=== PATIENT | male | born 1970 | race Caucasian/White ===

== ENCOUNTER 2021-04-16 11:23 | Inpatient (IN) ==
--- NOTE | 2021-04-16 11:43 | Emergency Department Note ---
History of Present Illness General Chief complaint: Shortness of Breath/Dyspnea Time Seen by Provider: 04/16/21 11:32 History of Present Illness 51-year-old male presents emergency department has been COVID-positive for the past 10 days he states he has had increased shortness of breath this morning. Patient is unvaccinated, called EMS reportedly his pulse oximetry on room air was in the mid 80s. Patient was placed on a nonrebreather at 15 L/min he states he is much improved. Patient denies any other complaints. There are no other mitigating or alleviating factors. Home Medications Medication Instructions Recorded Confirmed Type metformin 1,000 mg tablet 1,000 mg PO BIDWMEAL #0 tab 05/04/12 04/16/21 History acetaminophen 650 mg tablet 650 mg PO Q4H PRN #0 tab 10/22/12 04/16/21 History albuterol sulfate 90 mcg/actuation 2 puff INHALATION Q4H PRN 04/16/21 04/16/21 History aerosol inhaler dulaglutide 3 mg/0.5 mL 3 mg SUBCUT WK 04/16/21 04/16/21 History subcutaneous pen injector (Trulicity) hydrochlorothiazide 25 mg tablet 25 mg PO DAILY 04/16/21 04/16/21 History omeprazole 20 mg capsule,delayed 20 mg PO DAILY 04/16/21 04/16/21 History release prednisone 10 mg tablet 10 mg PO UD 04/16/21 04/16/21 History testosterone cypionate 200 mg/mL 200 mg IM UD 04/16/21 04/16/21 History intramuscular oil Allergies Allergy/AdvReac Type Severity Reaction Status Date / Time methylparaben Allergy Mild ITCHING Unverified 04/16/21 14:03 oxymorphone Allergy Mild ITCHING Unverified 04/16/21 14:03 Past Med/Surg History Medical History DM type 2 (diabetes mellitus, type 2) HTN (hypertension) Obesity FARNAZ on CPAP Surgical History H/O laminectomy x 2 History of appendectomy Family History Father Diabetes Hypertension Social History Smoking Status: Never smoker Hx Alcohol Use: Yes Alcohol Intake Frequency: Monthly or Less Feels Safe at Home: Yes Immunizations: Patient is not immunized for COVID, patient is a non-smoker, patient is a type II diabetic Review of Systems A total of 10 systems reviewed and were otherwise negative Constitutional: no fever Respiratory: + cough and + dyspnea Cardiovascular: + dyspnea and + dyspnea on exertion Endocrine: no fatigue Physical Exam Vital Signs Vital Signs - 24 hr 04/16/21 11:33 04/16/21 11:41 04/16/21 11:55 Temperature 38.3 C H 38.3 C H Temperature Source Oral Oral Pulse Rate 105 H 107 H Pulse Rate [Apical] 115 H Pulse Rate from SpO2 Sensor 104 H 107 H Pulse Rhythm Regular Pulse Rhythm [Apical] Regular Pulse Strength Normal Pulse Strength [Apical] Normal Respiratory Rate 32 H 22 22 Respiratory Effort / Characteristics Short of Breath SOB on Exertion Short of Breath SOB on Exertion Respiratory Depth Shallow Shallow Respiratory Pattern Regular Regular Blood Pressure 164/99 H Blood Pressure [Right Arm] 164/99 H Blood Pressure Mean 120 Blood Pressure Mean [Right Arm] 120 Blood Pressure Position [Right Arm] Lying Pulse Oximetry 92 94 95 Oxygen Delivery Method Oxymask Oxymask Oxygen Flow Rate 15 15 Sepsis Recent Fever Within 48 Hours Yes Sepsis New/Unexplained Change in Mental Status No Sepsis Action Taken by Nursing Physician Notified Oxygen Flow Rate - Titration Pulse Oximetry Post Tiitration 04/16/21 12:00 04/16/21 12:30 04/16/21 13:00 Temperature Temperature Source Pulse Rate 98 H 98 H 88 Pulse Rate [Apical] Pulse Rate from SpO2 Sensor 98 H 96 H 88 Pulse Rhythm Pulse Rhythm [Apical] Pulse Strength Pulse Strength [Apical] Respiratory Rate 35 H 34 H 25 H Respiratory Effort / Characteristics Respiratory Depth Respiratory Pattern Blood Pressure 174/111 H 162/106 H 147/104 H Blood Pressure [Right Arm] Blood Pressure Mean 132 124 118 Blood Pressure Mean [Right Arm] Blood Pressure Position [Right Arm] Pulse Oximetry 93 97 99 Oxygen Delivery Method Oxygen Flow Rate Sepsis Recent Fever Within 48 Hours Sepsis New/Unexplained Change in Mental Status Sepsis Action Taken by Nursing Oxygen Flow Rate - Titration Pulse Oximetry Post Tiitration 04/16/21 13:11 04/16/21 13:30 04/16/21 14:00 Temperature 37.1 C Temperature Source Oral Pulse Rate 87 83 Pulse Rate [Apical] 82 Pulse Rate from SpO2 Sensor 88 83 Pulse Rhythm Pulse Rhythm [Apical] Regular Pulse Strength Pulse Strength [Apical] Normal Respiratory Rate 24 32 H 28 H Respiratory Effort / Characteristics Short of Breath SOB on Exertion Respiratory Depth Normal Respiratory Pattern Regular Blood Pressure 163/99 H 171/108 H Blood Pressure [Right Arm] 171/98 H Blood Pressure Mean 120 129 Blood Pressure Mean [Right Arm] 122 Blood Pressure Position [Right Arm] Lying Pulse Oximetry 98 99 97 Oxygen Delivery Method Oxymask Oxymask Oxygen Flow Rate 15 15 Sepsis Recent Fever Within 48 Hours Sepsis New/Unexplained Change in Mental Status Sepsis Action Taken by Nursing Oxygen Flow Rate - Titration 13 Pulse Oximetry Post Tiitration 98 VITAL SIGNS - Vital signs and nursing notes were reviewed. GENERAL -51-year-old male appearing his stated age who is in no acute distress. Communicates well with provider and answers questions appropriately. SKIN - Without rashes. HEAD - NC/AT. EYES - PERRL with EOMI bilaterally. Sclera anicteric. Palpebral conjunctiva pink and moist with no injection noted. EARS - No deformities of external structures noted on gross examination bilaterally. NOSE - Midline and without cyanosis. No epistaxis or purulent drainage noted. Septum midline without deviation or septal hematoma noted. MOUTH/OROPHARYNX - Without perioral cyanosis. Buccal mucosa pink and moist NECK - Neck with FROM. Supple to palpation. No lymphadenopathy noted. No nuchal rigidity. LUNGS - Chest wall symmetric without accessory muscle use, intercostals retractions, or central cyanosis. Normal vesicular breath sounds CTA B/L. No wheezes, rales, or rhonchi appreciated. CARDIAC - RRR with S1/S2. No murmur, rubs, or gallops appreciated. ABDOMEN - Abdominal contour soft without pulsations or visible masses. BS normoactive all four quadrants. No tenderness, palpable masses, hepatosplenomegaly, or ascites noted. EXTREMITIES - No clubbing or peripheral cyanosis. No pretibial edema present. +5/5 strength noted in UE/LE bilaterally. NEUROLOGIC - Cranial nerves II through XII grossly intact. Sensory intact to light touch throughout. PSYCH - A&Ox3 and cooperates fully with examiner. Pt is very pleasant and interacts well with examiner. Course Reevaluation(s) Reevaluation #1: Patient was resting in no distress he is on nonrebreather but speaking in full sentences. Patient was started on IV Decadron, Tylenol. The case was discussed with the [facility] hospitalist for admission at 1335 Administered Medications Discontinued Medications Acetaminophen (Acetaminophen 500 Mg Tab) 1,000 mg PO NOW STA Stop: 04/16/21 12:03 Last Admin: 04/16/21 12:08 Dose: 1,000 mg Documented by: [id number] Dexamethasone Sodium Phosphate (DexamethasonePf 10 Mg/Ml Vial) 10 mg IV NOW ONE Stop: 04/16/21 11:46 Last Admin: 04/16/21 12:08 Dose: 10 mg Documented by: [id number] Furosemide (Furosemide 40 Mg/4 Ml Vial) 40 mg IV ONE ONE Stop: 04/16/21 14:16 Last Admin: 04/16/21 14: Dose: 40 mg Documented by: [id number] Medical Decision Making Laboratory Data Result diagrams: 04/16/21 11:42 04/16/21 11:42 Lab Results 04/16/21 04/16/21 04/16/21 Range/Units 11:42 11:42 11:42 WBC 12.48 H (4.8-10.8) K/uL RBC 4.83 (4.7-6.1) M/uL Hgb 14.7 (14.0-18.0) g/dL Hct 44.4 (42-52) % MCV 91.9 (80-100) fL MCH 30.4 (25-34) pg MCHC 33.1 (32-36) g/dL RDW Std Deviation 47.2 H (36.4-46.3) fL RDW Coeff of Raisa 13.8 (11.5-14.5) % Plt Count 200 (130-400) K/uL MPV 10.5 H (7.4-10.4) fL Immature Gran % (Auto) 0.5 % Neut % (Auto) 83.5 % Lymph % (Auto) 9.1 % Harvey % (Auto) 6.7 % Eos % (Auto) 0.0 % Baso % (Auto) 0.2 % Neut # (Auto) 10.42 H (1.4-6.5) K/uL Lymph # (Auto) 1.14 L (1.2-3.4) K/uL Harvey # (Auto) 0.84 H (0.11-0.59) K/uL Eos # (Auto) 0.00 (0-0.5) K/uL Baso # (Auto) 0.02 (0-0.2) K/uL Immature Gran # (Auto) 0.06 H (0.00-0.02) K/uL PT 10.2 (9.0-12.0) Seconds INR 1.0 (0.9-1.1) APTT 26.8 (21.0-31.0) Seconds PTT Ratio 1.0 D-Dimer 380 (0-500) ug/L FEU VBG pH (7.36-7.41) VBG pCO2 (38-50) mmHg VBG pO2 mmHg VBG HCO3 mmol/L VBG O2 Saturation % VBG Base Excess mEq/L Barometric Pressure mm/Hg Sodium 134 L (136-145) mmol/L Potassium 4.1 (3.5-5.1) mmol/L Chloride 100 (98-107) mmol/L Carbon Dioxide 25 (21-32) mmol/L Anion Gap 9 (3-11) BUN 18 (6-23) mg/dl Creatinine 0.86 (0.6-1.4) mg/dl Est Cr Clr Drug Dosing 133.9 ml/min Est GFR ( Amer) 114.7 ml/min Est GFR (Non-Af Amer) 99.0 ml/min BUN/Creatinine Ratio 20.9 H (10-20) Glucose 273 H (70-99) mg/dl Calcium 9.3 (8.5-10.1) mg/dl Total Bilirubin 1.1 H (0.2-1.0) mg/dl AST 12 L (13-39) U/L ALT 14 (7-52) U/L Alkaline Phosphatase 72 (34-104) U/L Troponin I < 0.03 (0-0.04) ng/ml Total Protein 7.1 (6.0-8.3) gm/dl Albumin 3.7 (3.4-5.0) gm/dl Globulin 3.4 (2.5-4.0) gm/dl Albumin/Globulin Ratio 1.1 (0.9-2) Procalcitonin (0-0.5) ng/ml 04/16/21 04/16/21 Range/Units 11:45 12:13 WBC (4.8-10.8) K/uL RBC (4.7-6.1) M/uL Hgb (14.0-18.0) g/dL Hct (42-52) % MCV (80-100) fL MCH (25-34) pg MCHC (32-36) g/dL RDW Std Deviation (36.4-46.3) fL RDW Coeff of Raisa (11.5-14.5) % Plt Count (130-400) K/uL MPV (7.4-10.4) fL Immature Gran % (Auto) % Neut % (Auto) % Lymph % (Auto) % Harvey % (Auto) % Eos % (Auto) % Baso % (Auto) % Neut # (Auto) (1.4-6.5) K/uL Lymph # (Auto) (1.2-3.4) K/uL Harvey # (Auto) (0.11-0.59) K/uL Eos # (Auto) (0-0.5) K/uL Baso # (Auto) (0-0.2) K/uL Immature Gran # (Auto) (0.00-0.02) K/uL PT (9.0-12.0) Seconds INR (0.9-1.1) APTT (21.0-31.0) Seconds PTT Ratio D-Dimer (0-500) ug/L FEU VBG pH 7.44 H (7.36-7.41) VBG pCO2 37 L (38-50) mmHg VBG pO2 55 mmHg VBG HCO3 25 mmol/L VBG O2 Saturation 88.9 % VBG Base Excess 1.0 mEq/L Barometric Pressure 743.6 mm/Hg Sodium (136-145) mmol/L Potassium (3.5-5.1) mmol/L Chloride (98-107) mmol/L Carbon Dioxide (21-32) mmol/L Anion Gap (3-11) BUN (6-23) mg/dl Creatinine (0.6-1.4) mg/dl Est Cr Clr Drug Dosing ml/min Est GFR ( Amer) ml/min Est GFR (Non-Af Amer) ml/min BUN/Creatinine Ratio (10-20) Glucose (70-99) mg/dl Calcium (8.5-10.1) mg/dl Total Bilirubin (0.2-1.0) mg/dl AST (13-39) U/L ALT (7-52) U/L Alkaline Phosphatase (34-104) U/L Troponin I (0-0.04) ng/ml Total Protein (6.0-8.3) gm/dl Albumin (3.4-5.0) gm/dl Globulin (2.5-4.0) gm/dl Albumin/Globulin Ratio (0.9-2) Procalcitonin 0.17 (0-0.5) ng/ml Imaging Data Radiologist's Impression: Chest X-Ray 04/16/21 11:37 XR chest 1V portable CLINICAL HISTORY: Dyspnea. Shortness of breath and illness for 3 days. COMPARISON STUDY: 09/20/2012 TECHNIQUE: 1 view of the chest FINDINGS: Single frontal view of the chest demonstrates the cardiomediastinal silhouette to be within normal limits. Patchy interstitial and alveolar opacities are present bilaterally. The findings are most characteristic of a viral type pneumonitis. Covid 19 pneumonia should be excluded. There is no evidence for pleural effusion. There is no evidence for vascular congestion. There is no acute osseous pathology. IMPRESSION: Patchy interstitial and alveolar opacities bilaterally characteris tic of a viral type pneumonitis and probable Covid 19 pneumonia. ACT 112: Negative or not required by law. Electronically signed by: Valdo Marina M.D. 04/16/2021 12:00 PM ECG Data Attestation: I personally reviewed and interpreted this ECG as follows: Additional Comments: EKG interpreted by me sinus tachycardia rate of [address]-T change no obvious ST segment elevation or depression normal axis normal intervals MDM Narrative Medical decision making differential diagnosis includes COVID-pneumonia, CHF, pneumonia, pulmonary embolism Impression & Plan COVID, Pneumonia due to 2019 novel coronavirus, Hypoxia Discharge Plan Visit Data Chief Complaint: Shortness of Breath/Dyspnea ED Provider: Remy Alvarez Discharge Problem: COVID, Pneumonia due to 2019 novel coronavirus, Hypoxia Patient Disposition: Being Evaluated by Hospitalist Forms Stand Alone Forms: [facility] Prescriptions Prescriptions: No Action metformin 1,000 mg Tablet 1,000 mg PO BIDWMEAL Qty: 0 RF: 0 acetaminophen 650 mg Tablet 650 mg PO Q4H PRN (Reason: Pain) Qty: 0 RF: 0 prednisone 10 mg tablet 10 mg PO UD RF: 0 hydrochlorothiazide 25 mg tablet 25 mg PO DAILY RF: 0 testosterone cypionate 200 mg/mL oil 200 mg IM UD RF: 0 albuterol sulfate 90 mcg/actuation HFA aerosol inhaler 2 puff INHALATION Q4H PRN (Reason: Shortness Of Breath) RF: 0 Trulicity 3 mg/0.5 mL pen injector 3 mg SUBCUT WK RF: 0 omeprazole 20 mg capsule,delayed release(DR/EC) 20 mg PO DAILY RF: 0 Referrals Referrals: Jameson Peoples MD [Outside Practitioners] -
[2021-04-16] MEDS ORDERED: dexAMETHasone**PF** 10 MG/ML VIAL IV ONE (11:45)
[2021-04-16 11:56] LABS: Basophils # (auto) 0.02 K/uL (0-0.2); Basophils % (auto) 0.2 %; Hematocrit (blood only) 44.4 % (42-52); Hemoglobin 14.7 g/dL (14.0-18.0); Immature Granulocytes # (auto) 0.06 K/uL (0.00-0.02); Immature Granulocytes % (auto) 0.5 %; Lymphocytes # (auto) 1.14 K/uL (1.2-3.4); Lymphocytes % (auto) 9.1 %; Mean Corpuscular Hemoglobin 30.4 pg (25-34); Mean Corpuscular Hgb Conc 33.1 g/dL (32-36); Mean Corpuscular Volume 91.9 fL (80-100); Mean Platelet Volume 10.5 fL (7.4-10.4); Monocytes # (auto) 0.84 K/uL (0.11-0.59); Monocytes % (auto) 6.7 %; Neutrophils # (auto) 10.42 K/uL (1.4-6.5); Neutrophils % (auto) 83.5 %; Platelet Count 200 K/uL (130-400); RDW Coefficient of Variation 13.8 % (11.5-14.5); RDW Standard Deviation 47.2 fL (36.4-46.3); Red Blood Count 4.83 M/uL (4.7-6.1); White Blood Count 12.48 K/uL (4.8-10.8)
--- NOTE | 2021-04-16 12:01 | XRay Report ---
XR chest 1V portable CLINICAL HISTORY: Dyspnea. Shortness of breath and illness for 3 days. COMPARISON STUDY: 09/20/2012 TECHNIQUE: 1 view of the chest FINDINGS: Single frontal view of the chest demonstrates the cardiomediastinal silhouette to be within normal li mits. Patchy interstitial and alveolar opacities are present bilaterally. The findings are most elmer cteristic of a viral type pneumonitis. Covid 19 pneumonia should be excluded. There is no evidence fo r pleural effusion. There is no evidence for vascular congestion. There is no acute osseous pathology . IMPRESSION: Patchy interstitial and alveolar opacities bilaterally characteristic of a viral type pne umonitis and probable Covid 19 pneumonia. ACT 112: Negative or not required by law. Electronically signed by: Valdo Marina M.D. 04/16/2021 12:00 PM
[2021-04-16] MEDS ORDERED: ACETAMINOPHEN 500 MG TAB PO STA (12:02)
[2021-04-16 12:14] LABS: D Dimer 380 ug/L FEU (0-500); Partial Thromboplastin Time 26.8 Seconds (21.0-31.0); Prothrombin Time 10.2 Seconds (9.0-12.0)
[2021-04-16 12:17] LABS: Troponin I < 0.03 ng/ml (0-0.04)
[2021-04-16 12:20] LABS: Alanine Aminotransferase 14 U/L (7-52); Albumin Globulin Ratio 1.1 (0.9-2); Albumin Level 3.7 gm/dl (3.4-5.0); Alkaline Phosphatase 72 U/L (34-104); Anion Gap 9 (3-11); Aspartate Aminotransferase 12 U/L (13-39); BUN Creatinine Ratio 20.9 (10-20); Bilirubin,Total 1.1 mg/dl (0.2-1.0); Blood Urea Nitrogen 18 mg/dl (6-23); Calcium 9.3 mg/dl (8.5-10.1); Carbon Dioxide 25 mmol/L (21-32); Chloride 100 mmol/L (98-107); Creatinine Clr Calc Pharmacy 133.9 ml/min; Est GFR (African American) 114.7 ml/min; Globulin 3.4 gm/dl (2.5-4.0); Glucose 273 mg/dl (70-99); Potassium 4.1 mmol/L (3.5-5.1); Sodium 134 mmol/L (136-145); Total Protein 7.1 gm/dl (6.0-8.3)
[2021-04-16 12:29] LABS: Oxygen Saturation VBG 88.9 %; pH VBG 7.44 (7.36-7.41)
--- NOTE | 2021-04-16 12:52 | Electrocardiogram Report ---
Test Reason : Blood Pressure : / mmHG Vent. Rate : 106 BPM Atrial Rate : 106 BPM P-R Int : 158 ms QRS Dur : 086 ms QT Int : 342 ms P-R-T Axes : 018 -07 031 degrees QTc Int : 454 ms Sinus tachycardia Otherwise normal ECG When compared with ECG of 20-SEP-2012 12:45, No significant change Confirmed by Josias Galicia ([id number]) on 04/16/2021 12:51:39 PM Referred By: Confirmed By:Josias Galicia
[2021-04-16] MEDS ORDERED: FUROSEMIDE 40 MG/4 ML VIAL IV ONE (14:15)
[2021-04-16] MEDS ORDERED: amLODIPine BESYLATE 5 MG TAB PO ONE (14:40)
--- NOTE | 2021-04-16 14:48 | History & Physical Report ---
Date of Service April 16, 2021 Assessment & Plan (1) Pneumonia due to 2019 novel coronavirus: (2) Acute respiratory failure with hypoxia: Plan: -Admit to telemetry -Patient presenting from home with reports of worsening shortness of breath and cough since 04/06/21. Patient reports testing positive for COVID-19 via home test on that day. -In the ED, patient was requiring 15 L oxygen mask to maintain saturations -CXR consistent with COVID-19 pneumonia -S/p dexamethasone 10 mg IV in the ED, continue with dexamethasone 6 mg IV daily -Given duration of symptoms, patient does not meet criteria for remdesivir. Does not meet criteria for tocilizumab or baricitinib as patient is not on high flow. -Lasix 40 mg IV x 1 dsoe -Procalcitonin 0.17, CRP pending -D-dimer 380 -Continue supportive care with flutter valve, incentive spirometer, albuterol inhaler, encourage self proning (3) HTN (hypertension): Plan: -BP elevated, will start amlodipine 5 mg daily, as needed IV hydralazine -Hold HCTZ while giving IV Lasix (4) DM type 2 (diabetes mellitus, type 2): Plan: -Hgb A1c 8.2 10/2020 -Hold oral agents and utilize Lantus and NovoLog per protocol hospitalized -Glycemic pharmacy consulted while receiving IV steroids (5) FARNAZ on CPAP: Plan: -CPAP as per home settings (6) Obesity: Plan: -BMI 36.4 (7) DVT prophylaxis: Plan: -SQ Lovenox History of Present Illness Chief Complaint: Shortness of breath Primary Care Provider: Josias Ng MD 51-year-old male with PMH DM type II, HTN, obesity, GERD, and other problems to below who presents to the ED for evaluation of shortness of breath. Patient reports testing positive for COVID-19 via home test on 04/06. His symptoms also started on the day. Reports that his and daughter are also positive. Patient is unvaccinated. Patient was seen by PCP on 04/14 and started on prednisone taper and albuterol inhaler. Patient reports no improvement in his symptoms. He has worsening shortness of breath to the point where he is short of breath at rest. He has had a cough productive of white sputum. Developed a fever yesterday, however is unsure of how high. He has had episodes of diaphoresis. No chest pain or palpitations. Denies lightheadedness, dizziness, diaphoresis, syncopal events. Reports appetite has been fair however denies abdominal pain, nausea, vomiting, diarrhea. No urinary symptoms. In the ED, patient is requiring 15 L oxygen mask to maintain saturations. Labs are mostly unremarkable. CXR is consistent with COVID-19 pneumonia. Patient was given p.o. Tylenol and IV dexamethasone. Allergies Allergy/AdvReac Type Severity Reaction Status Date / Time methylparaben Allergy Mild ITCHING Unverified 04/16/21 14:03 oxymorphone Allergy Mild ITCHING Unverified 04/16/21 14:03 Home Medications Medication Instructions Recorded Confirmed Type metformin 1,000 mg tablet 1,000 mg PO BIDWMEAL #0 tab 05/04/12 04/16/21 History acetaminophen 650 mg tablet 650 mg PO Q4H PRN #0 tab 10/22/12 04/16/21 History albuterol sulfate 90 mcg/actuation 2 puff INHALATION Q4H PRN 04/16/21 04/16/21 History aerosol inhaler dulaglutide 3 mg/0.5 mL 3 mg SUBCUT WK 04/16/21 04/16/21 History subcutaneous pen injector (Trulicity) hydrochlorothiazide 25 mg tablet 25 mg PO DAILY 04/16/21 04/16/21 History omeprazole 20 mg capsule,delayed 20 mg PO DAILY 04/16/21 04/16/21 History release prednisone 10 mg tablet 10 mg PO UD 04/16/21 04/16/21 History testosterone cypionate 200 mg/mL 200 mg IM UD 04/16/21 04/16/21 History intramuscular oil Past Med/Surg History Medical History DM type 2 (diabetes mellitus, type 2) HTN (hypertension) Obesity FARNAZ on CPAP Surgical History H/O laminectomy x 2 History of appendectomy Family History Father Diabetes Hypertension Social History Smoking Status: Never smoker Second Hand Exposure: No; Do You Dip or Chew Tobacco: No; Tobacco Cessation Education Requested by Patient: No Hx Alcohol Use: Yes Alcohol type: beer Alcohol Intake Frequency: Monthly or Less Hx Substance Use: No Preferred Language: [place] Communication Ability: Effective Director Of Midwifery/Staff Midwife Required: No Beliefs That Will Affect Care: None Current Living Situation: Spouse Current Living Situation Comment: single story home with steps to enter Other Information That Helps Us Care for You: No Feels Safe at Home: Yes Safety Concerns: Feels Safe At This Time Assistive Devices: None Review of Systems Review of Systems: ROS per HPI, all other systems reviewed and negative Physical Exam Constitutional: WD/WN, vitals as above Eyes: PERRL, conjunctivae normal, anicteric sclerae ENMT: external ear and nose normal, oropharynx normal Respiratory: + abnormal respiratory effort (Shortness of breath with minimal exertion) and no respiratory distress Auscultation: + diminished lung sounds Cardiovascular: Rate/Rhythm: regular rate and regular rhythm Vessels: normal peripheral pulses Extremities: no edema Gastrointestinal (Abdomen): normal bowel sounds, soft, nontender, no hepatosplenomegaly Musculoskeletal: no cyanosis or clubbing, extremities motor strength 5/5 Skin: no rashes Diaphoretic Neurologic: PERRL, EOMI, accommodation nl, no face palsy, no dysarthria Psychiatric: A+Ox3, euthymic affect Results & Data Results & Data ([facility]) Vital Signs (Past 12 Hours) Vital Signs Temp Pulse Pulse Resp BP BP Pulse Ox 04/16/21 14:00 83 28 H 171/108 H 97 04/16/21 13:30 87 32 H 163/99 H 99 04/16/21 13:11 37.1 C 82 24 171/98 H 98 04/16/21 13:00 88 25 H 147/104 H 99 04/16/21 12:30 98 H 34 H 162/106 H 97 04/16/21 12:00 98 H 35 H 174/111 H 93 04/16/21 11:55 38.3 C H 115 H 22 164/99 H 95 04/16/21 11:41 38.3 C H 107 H 22 164/99 H 94 04/16/21 11:33 105 H 32 H 92 Laboratory Results Short CBC 04/16/21 Range/Units 11:42 WBC 12.48 H (4.8-10.8) K/uL Hgb 14.7 (14.0-18.0) g/dL Hct 44.4 (42-52) % Plt Count 200 (130-400) K/uL BMP 04/16/21 11:42 Sodium 134 L Potassium 4.1 Chloride 100 Carbon Dioxide 25 BUN 18 Creatinine 0.86 Glucose 273 H Calcium 9.3 Cardiac Enzymes 04/16/21 Range/Units 11:42 Troponin I < 0.03 (0-0.04) ng/ml Liver Function 04/16/21 Range/Units 11:42 Total Bilirubin 1.1 H (0.2-1.0) mg/dl AST 12 L (13-39) U/L ALT 14 (7-52) U/L Alkaline Phosphatase 72 (34-104) U/L Albumin 3.7 (3.4-5.0) gm/dl Diagnostic Findings Chest X-Ray 04/16/21 11:37 XR chest 1V portable CLINICAL HISTORY: Dyspnea. Shortness of breath and illness for 3 days. COMPARISON STUDY: 09/20/2012 TECHNIQUE: 1 view of the chest FINDINGS: Single frontal view of the chest demonstrates the cardiomediastinal silhouette to be within normal limits. Patchy interstitial and alveolar opacities are present bilaterally. The findings are most characteristic of a viral type pneumonitis. Covid 19 pneumonia should be excluded. There is no evidence for pleural effusion. There is no evidence for vascular congestion. There is no acute osseous pathology. IMPRESSION: Patchy interstitial and alveolar opacities bilaterally characteristic of a viral type pneumonitis and probable Covid 19 pneumonia. ACT 112: Negative or not required by law. Electronically signed by: Valdo Marina M.D. 04/16/2021 12:00 PM Code Status & VTE Plan Code Status Patient is a full code as per my discussion with him. VTE Prophylaxis Plan VTE Prophylaxis will be ordered: Yes Supervising Physician Co-Signing Physician Notes Attending Addendum: care coordinated with YOLI Jiménez please refer to her notes for full details, I agree with her notes patient seen and examined, records reviewed by myself as well on exam, patient seen resting in bed, on 12 L NC not in distress breathing is about the same no chest pain, leg pain no other symptoms VS noted and reviewed oriented x 3, not in distress, speaks in sentences with no effort nor accessory muscle use normal rate, regular rhythm, no murmurs (+) crackles bilaterally, no wheezing non distended, soft, nontender no bipedal edema, erythema, warmth no neuro deficits WBC 12 Hg 14 Crea 0.86 Procal negative CRP 22.7 CXR:Patchy interstitial and alveolar opacities bilaterally characteristic of a viral type pneumonitis and probable Covid 19 pneumonia. ASSESSMENT AND PLAN ACUTE HYPOXIC RESPIRATORY FAILURE SECONDARY TO COVID-PNEUMONIA Dexamethasone IV, out of the window for remdesivir therapy Lasix 20 mg IV Positive spirometry, flutter valve Monitor closely Lovenox for DVT prophylaxis DIABETES TYPE 2 Hyperglycemia Glycemic control consult placed other diagnoses and plan of care as per YOLI Jiménez's notes Moe Moreno MD
[2021-04-16 15:26] LABS: Appearance Urine Clear (Clear); Bilirubin Urine Negative (Negative); Blood Urine Negative (Negative); Color Urine Yellow; Glucose Urine UA 3+ (Negative); Ketones Urine 2+ (Negative); Leukocyte Esterase Urine Negative (Negative); Nitrite Urine Negative (Negative); Protein Urine Negative (Negative); Specific Gravity Urine 1.022 (1.000-1.030); Urobilinogen Urine Negative (Negative); pH Urine 5.5 (4.5-7.5)
[2021-04-16 15:50] LABS: Influenza A virus by PCR Negative (Neg); Influenza B virus by PCR Negative (Neg); RSV by PCR Negative (Neg)
[2021-04-16 15:52] LABS: SARS CoV2 RNA(COVID-19) InHosp POSITIVE (Negative)
[2021-04-16] MEDS ORDERED: ALBUTEROL HFA 8 GM INHALER INH PRN (16:49)
[2021-04-16] MEDS ORDERED: PHARMACY GLYCEMIC MGMT CONSULT PRN (16:49)
[2021-04-16] MEDS ORDERED: GLUCOSE 40% GEL 15 GM TUBE PO PRN (16:49)
[2021-04-16] MEDS ORDERED: CARBOHYDRATES FOR HYPOGLYCEMIA PO PRN (16:49)
[2021-04-16] MEDS ORDERED: GLUCOSE 10 TABS/TUBE PO PRN (16:49)
[2021-04-16] MEDS ORDERED: GLUCAGON FOR INJ 1 MG VIAL SQ PRN (16:49)
[2021-04-16] MEDS ORDERED: INSULIN HUMAN NPH SC ONE (17:15)
--- NOTE | 2021-04-16 17:17 | Pharmacy Report ---
Pharmacy Glycemic Short Note 2 - Date of Service April 16, 2021 - Glycemic Short BSG Results (Last 24 hours): 04/16/21 04/16/21 04/16/21 11:42 16:28 16:29 Glucose 273 H POC Glucose 337 H* 330 H* OUTPATIENT ANTIDIABETIC REGIMEN: * Metformin 1000 mg PO BID * Dulaglutide 3 mg SQ weekly on Thu * A1c - pending (8.7% October 2020) ASSESSMENT: * Adolfo is a 51 yo T2DM admitted with COVID-19 pneumonia. * Hyperglycemic at the time of admission. Ordered dexamethasone 10 mg IV x 1 in ED, then 6 mg IV daily. * Will hold oral agents and start basal + bolus insulin * NPH 20 units SQ x 1 (0.2 units/kg dosed on AdjBW) - partial dose today since being given in the evening * Novolog based on weight stress 2-3 PLAN FOR INPATIENT GLYCEMIC CONTROL: * Hold outpatient oral diabetes medications * Basal insulin * NPH 20 units SQ now * NPH 38 units SQ daily - administer with dexamethasone * Bolus insulin * NovoLog per scale ACHS or Q6hrs while NPO * Goal Range: Low 110 mg/dL - High 140 mg/dL * Correction Factor: 20 mg/dL/unit * Nutritional / Prandial insulin per carb ratio of 1 unit per 6 grams CHO consumed PLAN FOR DISCHARGE: * tbd, A1c pending
[2021-04-16] MEDS: INSULIN ASPART PER UNIT SC SCH ×2 (18:06→22:11)
[2021-04-16] MEDS: ENOXAPARIN INJ 40 MG/0.4 ML SYR SQ SCH (18:06)
[2021-04-17] MEDS ORDERED: INSULIN ASPART PER UNIT SC SCH (02:00)
[2021-04-17] MEDS: ACETAMINOPHEN 325 MG TAB PO PRN ×2 (07:48→20:56)
[2021-04-17 08:31] LABS: Hemoglobin 14.6 g/dL (14.0-18.0); Mean Corpuscular Hemoglobin 30.6 pg (25-34); Mean Corpuscular Hgb Conc 33.2 g/dL (32-36); Mean Corpuscular Volume 92.2 fL (80-100); Mean Platelet Volume 10.8 fL (7.4-10.4); Platelet Count 221 K/uL (130-400); RDW Coefficient of Variation 13.6 % (11.5-14.5); RDW Standard Deviation 46.3 fL (36.4-46.3); Red Blood Count 4.77 M/uL (4.7-6.1)
[2021-04-17] MEDS: INSULIN ASPART PER UNIT SC SCH ×4 (08:38→21:34)
[2021-04-17] MEDS: dexAMETHasone 6 MG in SYRINGE 0 ML IV SCH (09:13)
[2021-04-17] MEDS: amLODIPine BESYLATE 5 MG TAB PO SCH (09:15)
[2021-04-17] MEDS: PANTOprazole 40 MG TAB PO SCH (09:15)
[2021-04-17 09:16] LABS: Calcium 9.2 mg/dl (8.5-10.1); Potassium 3.7 mmol/L (3.5-5.1)
[2021-04-17 09:18] LABS: Estimated Average Glucose 217 mg/dl; Hemoglobin A1C 9.2 % (4.5-5.6)
[2021-04-17] MEDS: INSULIN HUMAN NPH SC SCH (09:23)
[2021-04-17 09:47] LABS: BUN Creatinine Ratio 25.5 (10-20); Creatinine Clr Calc Pharmacy 107.2 ml/min; Est GFR (African American) 92.4 ml/min; Est GFR (Non-African American) 79.7 ml/min
--- NOTE | 2021-04-17 10:51 | Pharmacy Report ---
Pharmacy Glycemic Short Note 2 - Date of Service April 17, 2021 - Glycemic Short BSG Results (Last 24 hours): 04/16/21 04/16/21 04/16/21 11:42 16:28 16:29 Glucose 273 H POC Glucose 337 H* 330 H* 04/16/21 04/17/21 04/17/21 20:27 02:06 07:27 Glucose 171 H POC Glucose 264 H 145 H 04/17/21 08:20 Glucose POC Glucose 168 H OUTPATIENT ANTIDIABETIC REGIMEN: * Metformin 1000 mg PO BID * Dulaglutide 3 mg SQ weekly on Thu * A1c: 9.2% (04/17/21) ASSESSMENT: 04/17: * BSGs trended down nicely yesterday following initial NPH dose, 330 -> 264 -> 145 mg/dL * Fasting BSG of 168 mg/dL this morning * Will give full adjusted-body weight based 0.4 unit/kg NPH with dexamethasone today * Continue current Novolog parameters 04/16: * Adolfo is a 51 yo T2DM admitted with COVID-19 pneumonia. * Hyperglycemic at the time of admission. Ordered dexamethasone 10 mg IV x 1 in ED, then 6 mg IV daily. * Will hold oral agents and start basal + bolus insulin * NPH 20 units SQ x 1 (0.2 units/kg dosed on AdjBW) - partial dose today since being given in the evening * Novolog based on weight stress 2-3 PLAN FOR INPATIENT GLYCEMIC CONTROL: * Hold outpatient oral diabetes medications * Basal insulin * NPH 38 units SQ daily - administer with dexamethasone (~0.4 unit/kg adjusted body weight) * Bolus insulin * NovoLog per scale ACHS or Q6hrs while NPO * Goal Range: Low 110 mg/dL - High 140 mg/dL * Correction Factor: 20 mg/dL/unit * Nutritional / Prandial insulin per carb ratio of 1 unit per 6 grams CHO consumed PLAN FOR DISCHARGE: * HbA1c: 9.2% suggests poor outpatient glycemic control * Reasonable to continue metformin and Trulicity at discharge * Consider addition of second oral agent that would minimize weight gain/promote weight loss, such as SGLT2 inhibitor * Initial dosing of empagliflozin would be 10 mg PO daily * Alternatively, if patient agreeable to insulin, could consider once daily basal insulin (although, concern for insulin-induced weight gain)
--- NOTE | 2021-04-17 13:57 | Hospitalist Progress Note ---
Date of Service April 17, 2021 Assessment & Plan (1) Acute respiratory failure with hypoxia: Plan: Secondary to COVID-pneumonia. Evidence of cytokine storm with high level oxygen needs transition to high flow nasal cannula today, elevated CRP and viral pneumonia. Adding baricitinib to steroid therapy and trend inflammatory markers and labs in AM. Continue supportive care with oxygen. Noninvasive ventilation is okay with patient. Prone as tolerated. Out of window of benefit for remdesivir which was explained to him yesterday. Continue supportive therapies. (2) Pneumonia due to 2019 novel coronavirus: Plan: Plan as above. (3) HTN (hypertension): Plan: -BP elevated, HCTZ was held so that he could have lasix yesterday. He reports feeling better today. Amlodipine was started as a replacement and currently BP is at goal. Will cont with this now, trend BNP in am and if elevated and no contraindications will likely give some additional lasix. (4) DM type 2 (diabetes mellitus, type 2): Plan: -Hgb A1c 8.2 10/2020 -Hold oral agents and utilize Lantus and NovoLog per protocol hospitalized -Glycemic pharmacy consulted while receiving IV steroids -Currently euglycemic, cont current therapy. (5) FARNAZ on CPAP: Plan: -CPAP as per home settings (6) Obesity: Plan: -BMI 36.4, elevates his risk of complications with covid-19. (7) DVT prophylaxis: Plan: -SQ Lovenox Conditional Code-no intubation, CPR and noninvasive ventilation ok as needed Dispo-cont PCU, I discussed the care plan with his Piedad, by phone and all questions were answered. Mercedes Chang DO [facility] Hospitalist Admission and Anticipated Discharge Date Admission Date: April 16, 2021 Subjective 51-year-old man presented for evaluation of worsening shortness of breath. Reports a positive home test on April 06 for COVID-19 with symptoms beginning that day. Patient is unvaccinated and was started by primary care doctor on 04/14 with a prednisone taper and albuterol inhaler. Presented with fever diaphoresis and hypoxia. In the ER he was requiring 15 L oxygen mask to maintain appropriate oxygen saturation. Today he has required progression to high flow and is compliant with lying on his side. Oxygen saturation is 96% and he is not demonstrating any conversational dyspnea. He is mentating clearly and is answering questions appropriately. We discussed baricitinib as an option to add to steroids and went over the fact sheet regarding this. He denies any history of hepatitis or tuberculosis or other occult infections. He denies any history of blood clot, liver disease or kidney disease. After review of the fact she dilator called him and he agreed to move forward with baricitinib therapy in combination with steroids. He does report feeling better today. We discussed his wishes regarding intubation and he does not wish to be intubated for mechanical ventilation. He is okay with noninvasive ventilation and is okay with CPR if needed. He verbalizes understanding that if he is not intubated and needs to be he may . I did contact his and explained everything to her. She reports having a friend who works in the COVID unit and supported the idea of baricitinib and steroids together. His asks several questions in a row without waiting for the answers and appears very anxious. She asked about giving him ivermectin before I could finish telling her about baricitinib. I told her ivermectin is not something that is offered here. I explained to her that her has chosen not to be intubated which makes the treatment options more limited. She verbalized understanding. She states there is a updated will that his aunt is bringing to the hospital which will need to be signed and possibly notarized. I directed her to case management, called case management after the phone call was over and the outpatient case manager verbalized she will be calling Mrs. Ferguson to further direct her on the process. The primary care nurse was updated on the plan. Review of Systems Review of Systems: All systems were reviewed and negative except as indicated above. Physical Exam Physical Exam: CONSTITUTIONAL: WNWD, vitals as above, generally NAD, lying in left lateral decubitus position. EYES: normal conjunctivae, no scleral icterus ENT: external ear and nose normal, MMM NECK: trachea midline RESPIRATORY: clear to auscultation bilaterally, no crackles, rales or wheezes, normal respiratory effort CARDIOVASCULAR: regular rate and rhythm, S1 and 2 heard without murmurs, gallops or rubs, no JVD, no peripheral edema CHEST: inspection of chest was normal GASTROINTESTINAL: soft, nontender, ND, no guarding MUSCULOSKELETAL: strength 5/5 throughout, head is normocephalic and atraumatic, neck supple, normal palpation of chest wall without tenderness SKIN: warm and dry NEUROLOGIC: CN 2-12 grossly intact, no sensory deficit, normal cognition, normal speech, no tremor PSYCHIATRIC: alert cooperative and oriented to person, place and time. Results & Data Results & Data ([facility]) Vital Signs (Past 12 Hours) Vital Signs Temp Pulse Pulse Resp BP BP Pulse Ox 04/17/21 13:14 90 20 93 04/17/21 12:35 36.8 C 85 20 127/76 88 L 04/17/21 08:51 37 C 04/17/21 07:38 38.3 C H 105 H 24 130/81 88 L 04/17/21 04:27 37.4 C 82 20 124/84 94 04/17/21 03:17 77 20 92 Laboratory Results Short CBC 04/17/21 Range/Units 07:27 WBC 15.90 H (4.8-10.8) K/uL Hgb 14.6 (14.0-18.0) g/dL Hct 44.0 (42-52) % Plt Count 221 (130-400) K/uL BMP 04/17/21 07:27 Sodium 137 Potassium 3.7 Chloride 98 Carbon Dioxide 27 BUN 27 H Creatinine 1.06 Glucose 171 H Calcium 9.2 Urine 04/16/21 Range/Units 15:12 Urine Color Yellow Urine Appearance Clear (Clear) Urine pH 5.5 (4.5-7.5) Ur Specific Woodman 1.022 (1.000-1.030) Urine Protein Negative (Negative) Urine Glucose (UA) 3+ H (Negative) Medications Administered Current Inpatient Medications Acetaminophen (Acetaminophen 325 Mg Tab) 650 mg PO Q4H PRN PRN Reason: Pain or Fever Stop: 05/16/21 16:48 Last Admin: 04/17/21 07:48 Dose: 650 mg Documented by: Albuterol (Albuterol Hfa 8 Gm Inhaler) 2 puffs INH Q4R PRN PRN Reason: shortness of breath Stop: 05/16/21 16:48 Amlodipine Besylate (Amlodipine Besylate 5 Mg Tab) 5 mg PO QAM [facility] Stop: 05/17/21 08:59 Last Admin: 04/17/21 09:15 Dose: 5 mg Documented by: Dextrose (Dextrose 50% 50 Ml Syringe) 25 - 50 ml IV UD PRN; Protocol PRN Reason: Hypoglycemia Protocol Stop: 05/16/21 16:48 Enoxaparin Sodium (Enoxaparin Inj 40 Mg/0.4 Ml Syr) 40 mg SQ Q24H [facility] Stop: 05/16/21 17:14 Last Admin: 04/16/21 18:06 Dose: 40 mg Documented by: Glucagon (Glucagon For Inj 1 Mg Vial) 1 mg SQ UD PRN; Protocol PRN Reason: Hypoglycemia Protocol Stop: 05/16/21 16:48 Glucose (Glucose 10 Tabs/Tube) 4 - 8 tabs PO UD PRN; Protocol PRN Reason: Hypoglycemia Protocol Stop: 05/16/21 16:48 Glucose (Glucose 40% Gel 15 Gm Tube) 15 - 30 gm PO UD PRN; Protocol PRN Reason: Hypoglycemia Protocol Stop: 05/16/21 16:48 Hydralazine HCl (Hydralazine Hcl 20 Mg/Ml Vial) 10 mg IV Q6H PRN PRN Reason: HTN Stop: 05/16/21 14:44 Dexamethasone 6 mg/ Syringe 1.5 mls @ 1 mls/min IV DAILY [facility] Stop: 04/27/21 08:59 Last Admin: 04/17/21 09:13 Dose: 1 mls/min Documented by: Insulin Aspart (Insulin Aspart Per Unit) 0 units SC ACHS [facility] Stop: 05/16/21 16:59 Last Admin: 04/17/21 12:21 Dose: 6 units Documented by: Insulin Human NPH (Insulin Human Nph) 38 units SC Q24H [facility] Stop: 05/17/21 08:59 Last Admin: 04/17/21 09:23 Dose: 38 units Documented by: Miscellaneous (Carbohydrates For Hypoglycemia ) 15 - 30 gm PO UD PRN PRN Reason: Hypoglycemia Protocol Stop: 05/16/21 16:48 Miscellaneous Information (Pharmacy Glycemic Mgmt Consult) 1 ea N/A UD PRN; Protocol PRN Reason: Consult Stop: 05/16/21 16:48 Pantoprazole Sodium (Pantoprazole 40 Mg Tab) 40 mg PO DAILY [facility] Stop: 05/17/21 08:59 Last Admin: 04/17/21 09:15 Dose: 40 mg Documented by:
[2021-04-17] MEDS ORDERED: BARICITINIB COMMUNICATION ONE (15:47)
[2021-04-17] MEDS: BARICITINIB 2 MG TAB PO SCH (17:20)
[2021-04-17] MEDS: ENOXAPARIN INJ 40 MG/0.4 ML SYR SQ SCH (17:22)
[2021-04-17] MEDS: BENZONATATE 100 MG CAPSULE PO PRN (22:18)
[2021-04-17] MEDS: cefTRIAXone SODIUM 2,000 MG in DEXTROSE 5% 50 ML IV SCH (23:45)
[2021-04-17 23:50] LABS: Hematocrit (blood only) 43.9 % (42-52); Hemoglobin 14.6 g/dL (14.0-18.0); Mean Corpuscular Hemoglobin 30.5 pg (25-34); Mean Corpuscular Hgb Conc 33.3 g/dL (32-36); Mean Corpuscular Volume 91.8 fL (80-100); Mean Platelet Volume 10.3 fL (7.4-10.4); Platelet Count 246 K/uL (130-400); RDW Coefficient of Variation 13.6 % (11.5-14.5); RDW Standard Deviation 46.2 fL (36.4-46.3); Red Blood Count 4.78 M/uL (4.7-6.1); White Blood Count 15.41 K/uL (4.8-10.8)
[2021-04-18 00:11] LABS: BUN Creatinine Ratio 28.6 (10-20); Calcium 9.4 mg/dl (8.5-10.1); Est GFR (African American) 101.6 ml/min; Est GFR (Non-African American) 87.7 ml/min; Potassium 4.2 mmol/L (3.5-5.1)
[2021-04-18] MEDS: AZITHROMYCIN 500 MG in DEXTROSE 5% 250 ML IV SCH ×2 (00:46→22:00)
[2021-04-18] MEDS: ACETAMINOPHEN 325 MG TAB PO PRN ×3 (03:18→23:37)
[2021-04-18 08:15] LABS: Albumin Level 3.4 gm/dl (3.4-5.0); BUN Creatinine Ratio 25.3 (10-20); Bilirubin,Total 0.9 mg/dl (0.2-1.0); Calcium 8.9 mg/dl (8.5-10.1); Creatinine Clr Calc Pharmacy 114.9 ml/min; Est GFR (African American) 100.4 ml/min; Est GFR (Non-African American) 86.6 ml/min; Globulin 3.3 gm/dl (2.5-4.0); Potassium 4.3 mmol/L (3.5-5.1); Total Protein 6.7 gm/dl (6.0-8.3)
[2021-04-18] MEDS: amLODIPine BESYLATE 5 MG TAB PO SCH (08:38)
[2021-04-18] MEDS: dexAMETHasone 6 MG in SYRINGE 0 ML IV SCH (08:38)
[2021-04-18] MEDS: PANTOprazole 40 MG TAB PO SCH (08:38)
[2021-04-18] MEDS: INSULIN HUMAN NPH SC SCH (08:38)
[2021-04-18] MEDS: INSULIN ASPART PER UNIT SC SCH ×4 (08:39→21:39)
--- NOTE | 2021-04-18 08:41 | XRay Report ---
XR chest 1V portable CLINICAL HISTORY: monitor covid pna. Follow-up bilateral interstitial and alveolar opacities COMPARISON STUDY: 04/16/2021 TECHNIQUE: 1 view of the chest FINDINGS: Single frontal view of the chest demonstrates the cardiomediastinal silhouette to be within normal li mits. Compared to the previous examination, there has been partial resolution of previously identifie d interstitial and alveolar opacities bilaterally. There is no evidence for pleural effusion. There i s no evidence for vascular congestion. There is no acute osseous pathology. IMPRESSION: Partial interval resolution of bilateral interstitial and alveolar opacities bilaterally. ACT 112: Negative or not required by law. Electronically signed by: Valdo Marina M.D. 04/18/2021 8:40 AM
[2021-04-18] MEDS: BENZONATATE 100 MG CAPSULE PO PRN ×2 (08:48→16:57)
[2021-04-18] MEDS: BARICITINIB 2 MG TAB PO SCH (16:57)
[2021-04-18] MEDS: ENOXAPARIN INJ 40 MG/0.4 ML SYR SQ SCH (17:36)
--- NOTE | 2021-04-18 17:59 | Hospitalist Progress Note ---
Date of Service April 18, 2021 Assessment & Plan (1) Acute respiratory failure with hypoxia: Plan: Secondary to COVID-pneumonia. Evidence of cytokine storm with high level oxygen needs transition to high flow nasal cannula, elevated CRP and viral pneumonia. Baricitinib added to steroid therapy and trend inflammatory markers and labs in AM. Continue supportive care with oxygen. Noninvasive ventilation is okay with patient. Prone as tolerated. Out of window of benefit for remdesivir which was explained to him yesterday. Continue supportive therapies. (2) Pneumonia due to 2019 novel coronavirus: Plan: Plan as above. (3) HTN (hypertension): Plan: BP elevated, HCTZ was held so that he could have lasix on admission. He reports feeling better today. Amlodipine was started as a replacement and currently BP is at goal. No additional Lasix at this time. (4) DM type 2 (diabetes mellitus, type 2): Plan: -Hgb A1c 8.2 10/2020 -Hold oral agents and utilize Lantus and NovoLog per protocol hospitalized -Glycemic pharmacy consulted while receiving IV steroids -Currently euglycemic, cont current therapy. (5) FARNAZ on CPAP: Plan: -CPAP as per home settings (6) Obesity: Plan: -BMI 36.4, elevates his risk of complications with covid-19. (7) DVT prophylaxis: Plan: SQ Lovenox Conditional Code-no intubation, CPR and noninvasive ventilation ok as needed Dispo-cont PCU, I discussed the care plan with his Piedad, by phone and all questions were answered. Mercedes Chang DO [facility] Hospitalist Admission and Anticipated Discharge Date Admission Date: April 16, 2021 Subjective 51-year-old man presented for evaluation of worsening shortness of breath. Reports a positive home test on April 06 for COVID-19 with symptoms beginning that day. Patient is unvaccinated and was started by primary care doctor on 04/14 with a prednisone taper and albuterol inhaler. Presented with fever diaphoresis and hypoxia. In the ER he was requiring 15 L oxygen mask to maintain appropriate oxygen saturation. Escalated to hi flow oxygen supplementation with cytokine storm. Baricitinib added. Overnight events include persistent fever with no clear source for bacterial infection Out of an abundance of caution, antibiotics were added Sepsis was ruled out Today he feels improved WBC and CRP are the same but his CXR is clearing. BNP is low, no indication for additional Lasix at this time. He has been compliant with proning. was updated by phone today. She is understandably emotional but was thankful for the care we are giving him. Review of Systems Review of Systems: All systems were reviewed and negative except as indicated above. Physical Exam Physical Exam: CONSTITUTIONAL: WNWD, vitals as above, generally NAD, lying in right lateral decubitus position. EYES: normal conjunctivae, no scleral icterus ENT: external ear and nose normal, MMM NECK: trachea midline RESPIRATORY: clear to auscultation bilaterally, no crackles, rales or wheezes, normal respiratory effort CARDIOVASCULAR: regular rate and rhythm, S1 and 2 heard without murmurs, gallops or rubs, no JVD, no peripheral edema CHEST: inspection of chest was normal GASTROINTESTINAL: soft, nontender, ND, no guarding MUSCULOSKELETAL: strength 5/5 throughout, head is normocephalic and atraumatic, neck supple, normal palpation of chest wall without tenderness SKIN: warm and dry NEUROLOGIC: CN 2-12 grossly intact, no sensory deficit, normal cognition, normal speech, no tremor PSYCHIATRIC: alert cooperative and oriented to person, place and time. Results & Data Results & Data ([facility]) Vital Signs (Past 12 Hours) Vital Signs Temp Pulse Resp BP Pulse Ox 04/18/21 15:11 37.1 C 85 20 119/69 92 04/18/21 14:50 86 20 96 04/18/21 12:29 36.9 C 81 20 130/66 91 04/18/21 10:40 82 20 99 04/18/21 07:46 37.4 C 90 24 127/69 93 04/18/21 07:43 76 20 97 Laboratory Results Short CBC 04/17/21 Range/Units 23:40 WBC 15.41 H (4.8-10.8) K/uL Hgb 14.6 (14.0-18.0) g/dL Hct 43.9 (42-52) % Plt Count 246 (130-400) K/uL BMP 04/17/21 04/18/21 23:40 07:10 Sodium 135 L 134 L Potassium 4.2 4.3 Chloride 98 97 L Carbon Dioxide 29 28 BUN 28 H 25 H Creatinine 0.98 0.99 Glucose 155 H 191 H Calcium 9.4 8.9 Liver Function 04/18/21 Range/Units 07:10 Total Bilirubin 0.9 (0.2-1.0) mg/dl AST 19 (13-39) U/L ALT 17 (7-52) U/L Alkaline Phosphatase 69 (34-104) U/L Albumin 3.4 (3.4-5.0) gm/dl Diagnostic Findings Chest X-Ray 04/18/21 07:00 XR chest 1V portable CLINICAL HISTORY: monitor covid pna. Follow-up bilateral interstitial and alveolar opacities COMPARISON STUDY: 04/16/2021 TECHNIQUE: 1 view of the chest FINDINGS: Single frontal view of the chest demonstrates the cardiomediastinal silhouette to be within normal limits. Compared to the previous examination, there has been partial resolution of previously identified interstitial and alveolar opacities bilaterally. There is no evidence for pleural effusion. There is no evidence for vascular congestion. There is no acute osseous pathology. IMPRESSION: Partial interval resolution of bilateral interstitial and alveolar opacities bilaterally. ACT 112: Negative or not required by law. Electronically signed by: Valdo Marina M.D. 04/18/2021 8:40 AM Medications Administered Current Inpatient Medications Acetaminophen (Acetaminophen 325 Mg Tab) 650 mg PO Q4H PRN PRN Reason: Pain or Fever Stop: 05/16/21 16:48 Last Admin: 04/18/21 16:57 Dose: 650 mg Documented by: Albuterol (Albuterol Hfa 8 Gm Inhaler) 2 puffs INH Q4R PRN PRN Reason: shortness of breath Stop: 05/16/21 16:48 Amlodipine Besylate (Amlodipine Besylate 5 Mg Tab) 5 mg PO QAM PHYLLIS Stop: 05/17/21 08:59 Last Admin: 04/18/21 08:38 Dose: 5 mg Documented by: Baricitinib (Baricitinib 2 Mg Tab) 4 mg PO Q24H [facility] Stop: 05/01/21 15:59 Last Admin: 04/18/21 16:57 Dose: 4 mg Documented by: Benzonatate (Benzonatate 100 Mg Capsule) 100 mg PO TID PRN PRN Reason: Cough Stop: 05/17/21 22:01 Last Admin: 04/18/21 16:57 Dose: 100 mg Documented by: Dextrose (Dextrose 50% 50 Ml Syringe) 25 - 50 ml IV UD PRN; Protocol PRN Reason: Hypoglycemia Protocol Stop: 05/16/21 16:48 Enoxaparin Sodium (Enoxaparin Inj 40 Mg/0.4 Ml Syr) 40 mg SQ Q24H [facility] Stop: 05/16/21 17:14 Last Admin: 04/18/21 17:36 Dose: 40 mg Documented by: Glucagon (Glucagon For Inj 1 Mg Vial) 1 mg SQ UD PRN; Protocol PRN Reason: Hypoglycemia Protocol Stop: 05/16/21 16:48 Glucose (Glucose 10 Tabs/Tube) 4 - 8 tabs PO UD PRN; Protocol PRN Reason: Hypoglycemia Protocol Stop: 05/16/21 16:48 Glucose (Glucose 40% Gel 15 Gm Tube) 15 - 30 gm PO UD PRN; Protocol PRN Reason: Hypoglycemia Protocol Stop: 05/16/21 16:48 Hydralazine HCl (Hydralazine Hcl 20 Mg/Ml Vial) 10 mg IV Q6H PRN PRN Reason: HTN Stop: 05/16/21 14:44 Dexamethasone 6 mg/ Syringe 1.5 mls @ 1 mls/min IV DAILY [facility] Stop: 04/27/21 08:59 Last Admin: 04/18/21 08:38 Dose: 1 mls/min Documented by: Ceftriaxone Sodium 2,000 mg/ (Dextrose) 70 mls @ 100 mls/hr IV Q24H [facility]; Protocol Stop: 04/24/21 22:59 Last Infusion: 04/18/21 00:46 Dose: Infused Documented by: Azithromycin 500 mg/ Dextrose 255 mls @ 127.5 mls/hr IV Q24H [facility] Stop: 04/24/21 22:59 Last Infusion: 04/18/21 02:48 Dose: Infused Documented by: Insulin Aspart (Insulin Aspart Per Unit) 0 units SC ACHS [facility] Stop: 05/16/21 16:59 Last Admin: 04/18/21 17:36 Dose: 17 units Documented by: Insulin Glargine (Insulin Glargine Solostar 100 Units/Ml 3 Ml Pen) 0 units SC HS ONE; Protocol Stop: 04/18/21 21:01 Insulin Human NPH (Insulin Human Nph) 38 units SC Q24H [facility] Stop: 05/17/21 08:59 Last Admin: 04/18/21 08:38 Dose: 38 units Documented by: Miscellaneous (Carbohydrates For Hypoglycemia ) 15 - 30 gm PO UD PRN PRN Reason: Hypoglycemia Protocol Stop: 05/16/21 16:48 Miscellaneous Information (Pharmacy Glycemic Mgmt Consult) 1 ea N/A UD PRN; Protocol PRN Reason: Consult Stop: 05/16/21 16:48 Pantoprazole Sodium (Pantoprazole 40 Mg Tab) 40 mg PO DAILY [facility] Stop: 05/17/21 08:59 Last Admin: 04/18/21 08:38 Dose: 40 mg Documented by:
[2021-04-18] MEDS ORDERED: INSULIN GLARGINE SOLOSTAR 100 UNITS/ML 3 ML PEN SC ONE (21:00)
[2021-04-19] MEDS: cefTRIAXone SODIUM 2,000 MG in DEXTROSE 5% 50 ML IV SCH ×2 (00:07→21:56)
[2021-04-19 06:38] LABS: Hematocrit (blood only) 43.2 % (42-52); Hemoglobin 14.3 g/dL (14.0-18.0); Mean Corpuscular Hemoglobin 30.1 pg (25-34); Mean Corpuscular Hgb Conc 33.1 g/dL (32-36); Mean Corpuscular Volume 90.9 fL (80-100); Mean Platelet Volume 10.6 fL (7.4-10.4); Platelet Count 247 K/uL (130-400); RDW Coefficient of Variation 13.5 % (11.5-14.5); RDW Standard Deviation 44.7 fL (36.4-46.3); Red Blood Count 4.75 M/uL (4.7-6.1); White Blood Count 17.64 K/uL (4.8-10.8)
[2021-04-19 07:03] LABS: BUN Creatinine Ratio 25.5 (10-20); Creatinine Clr Calc Pharmacy 120.6 ml/min; Est GFR (African American) 106.9 ml/min; Est GFR (Non-African American) 92.2 ml/min; Potassium 3.9 mmol/L (3.5-5.1)
[2021-04-19] MEDS: dexAMETHasone 6 MG in SYRINGE 0 ML IV SCH (09:06)
[2021-04-19] MEDS: INSULIN HUMAN NPH SC SCH (09:06)
[2021-04-19] MEDS: amLODIPine BESYLATE 5 MG TAB PO SCH (09:07)
[2021-04-19] MEDS: PANTOprazole 40 MG TAB PO SCH (09:08)
[2021-04-19] MEDS: INSULIN ASPART PER UNIT SC SCH ×4 (09:10→20:58)
--- NOTE | 2021-04-19 13:13 | Pharmacy Report ---
Pharmacy Glycemic Short Note 2 - Date of Service April 19, 2021 - Glycemic Short BSG Results (Last 24 hours): 04/18/21 04/18/21 04/19/21 16:41 19:44 05:42 Glucose 102 H POC Glucose 237 H 243 H 04/19/21 04/19/21 07:45 11:51 Glucose POC Glucose 139 H 198 H OUTPATIENT ANTIDIABETIC REGIMEN: * Metformin 1000 mg PO BID * Dulaglutide 3 mg SQ weekly on Thu * A1c: 9.2% (04/17/21) ASSESSMENT: 04/19: * Fasting improved with addition of 10 units of lantus, will continue scale for PM tonight * Continued same NPH dose (0.4 unit/kg adjbw) with dexamethasone and tightedn carb ratio, lunch BSG improved continue to monitor for additional changes 04/17: * BSGs trended down nicely yesterday following initial NPH dose, 330 -> 264 -> 145 mg/dL * Fasting BSG of 168 mg/dL this morning * Will give full adjusted-body weight based 0.4 unit/kg NPH with dexamethasone today * Continue current Novolog parameters 04/16: * Adolfo is a 51 yo T2DM admitted with COVID-19 pneumonia. * Hyperglycemic at the time of admission. Ordered dexamethasone 10 mg IV x 1 in ED, then 6 mg IV daily. * Will hold oral agents and start basal + bolus insulin * NPH 20 units SQ x 1 (0.2 units/kg dosed on AdjBW) - partial dose today si nce being given in the evening * Novolog based on weight stress 2-3 PLAN FOR INPATIENT GLYCEMIC CONTROL: * Hold outpatient oral diabetes medications * Basal insulin * Lantus scale HS 5-10 units * NPH 38 units SQ daily - administer with dexamethasone (~0.4 unit/kg adjusted body weight) * Bolus insulin * NovoLog per scale ACHS or Q6hrs while NPO * Goal Range: Low 110 mg/dL - High 140 mg/dL * Correction Factor: 15 mg/dL/unit * Nutritional / Prandial insulin per carb ratio of 1 unit per 4 grams CHO consumed PLAN FOR DISCHARGE: * HbA1c: 9.2% suggests poor outpatient glycemic control * Reasonable to continue metformin and Trulicity at discharge * Consider addition of second oral agent that would minimize weight gain/promote weight loss, such as SGLT2 inhibitor * Initial dosing of empagliflozin would be 10 mg PO daily * Alternatively, if patient agreeable to insulin, could consider once daily basal insulin (although, concern for insulin-induced weight gain)
--- NOTE | 2021-04-19 16:48 | Hospitalist Progress Note ---
Date of Service April 19, 2021 Assessment & Plan (1) Acute respiratory failure with hypoxia: Plan: Secondary to COVID-pneumonia. Evidence of cytokine storm with high level oxygen needs transition to high flow nasal cannula, elevated CRP and viral pneumonia. Baricitinib added to steroid therapy and trend inflammatory markers and labs in AM. Continue supportive care with oxygen. Noninvasive ventilation is okay with patient. Prone as tolerated. Out of window of benefit for remdesivir. Continue supportive therapies. CXR shows improvement in infiltrative disease yesterday morning. Improved clinically but remains on high flow. (2) Pneumonia due to 2019 novel coronavirus: Plan: Plan as above. (3) HTN (hypertension): Plan: BP elevated, HCTZ was held so that he could have lasix on admission. He reports feeling better today. Amlodipine was started as a replacement and currently BP is at goal. No additional Lasix at this time. (4) DM type 2 (diabetes mellitus, type 2): Plan: -Hgb A1c 8.2 10/2020 -Hold oral agents and utilize Lantus and NovoLog per protocol hospitalized -Glycemic pharmacy consulted while receiving IV steroids -Currently euglycemic, cont current therapy. (5) FARNAZ on CPAP: Plan: -CPAP as per home settings (6) Obesity: Plan: -BMI 36.4, elevates his risk of complications with covid-19. (7) DVT prophylaxis: Plan: SQ Lovenox Conditional Code-no intubation, CPR and noninvasive ventilation ok as needed Dispo-cont PCU DO Jony Cohen Hospitalist Admission and Anticipated Discharge Date Admission Date: April 16, 2021 Subjective 51-year-old man presented for evaluation of worsening shortness of breath. Reports a positive home test on April 06 for COVID-19 with symptoms beginning that day. Patient is unvaccinated and was started by primary care doctor on 04/14 with a prednisone taper and albuterol inhaler. Presented with fever diaphoresis and hypoxia. In the ER he was requiring 15 L oxygen mask to maintain appropriate oxygen saturation. Escalated to hi flow oxygen supplementation with cytokine storm. Baricitinib added. Tm overnight at 2300 38, but there has been improvement in fever curve Denies chest pain, leg pain or swelling Denies dysuria. Says his night went excellent until the oxygen wean this am and then he had a hard time. WBC increase from 15 to 17 and CRP same at 22. He has been compliant with proning. Review of Systems Review of Systems: All systems were reviewed and negative except as indicated above. Physical Exam Physical Exam: CONSTITUTIONAL: WNWD, vitals as above, generally NAD, sitting up in bedside chair EYES: normal conjunctivae, no scleral icterus ENT: external ear and nose normal, MMM NECK: trachea midline RESPIRATORY: clear to auscultation bilaterally, no crackles, rales or wheezes, normal respiratory effort CARDIOVASCULAR: regular rate and rhythm, S1 and 2 heard without murmurs, gallops or rubs, no JVD, no peripheral edema CHEST: inspection of chest was normal GASTROINTESTINAL: soft, nontender, ND, no guarding MUSCULOSKELETAL: strength 5/5 throughout, head is normocephalic and atraumatic, neck supple, normal palpation of chest wall without tenderness SKIN: warm and dry NEUROLOGIC: CN 2-12 grossly intact, no sensory deficit, normal cognition, normal speech, no tremor PSYCHIATRIC: alert cooperative and oriented to person, place and time. Results & Data Results & Data ([facility]) Vital Signs (Past 12 Hours) Vital Signs Temp Pulse Pulse Resp BP BP Pulse Ox 04/19/21 16:00 91 H 04/19/21 15:56 36.8 C 66 18 115/64 99 04/19/21 14:55 77 20 94 04/19/21 11:08 78 20 93 04/19/21 10:59 36.9 C 74 22 127/78 97 04/19/21 08:34 78 22 93 04/19/21 07:46 37.0 C 67 20 122/65 97 04/19/21 07:35 72 Laboratory Results Short CBC 04/19/21 Range/Units 05:42 WBC 17.64 H (4.8-10.8) K/uL Hgb 14.3 (14.0-18.0) g/dL Hct 43.2 (42-52) % Plt Count 247 (130-400) K/uL BMP 04/19/21 05:42 Sodium 133 L Potassium 3.9 Chloride 96 L Carbon Dioxide 27 BUN 24 H Creatinine 0.94 Glucose 102 H Calcium 9.0 Medications Administered Current Inpatient Medications Acetaminophen (Acetaminophen 325 Mg Tab) 650 mg PO Q4H PRN PRN Reason: Pain or Fever Stop: 05/16/21 16:48 Last Admin: 04/18/21 23:37 Dose: 650 mg Documented by: Albuterol (Albuterol Hfa 8 Gm Inhaler) 2 puffs INH Q4R PRN PRN Reason: shortness of breath Stop: 05/16/21 16:48 Amlodipine Besylate (Amlodipine Besylate 5 Mg Tab) 5 mg PO QAM [facility] Stop: 05/17/21 08:59 Last Admin: 04/19/21 09:07 Dose: 5 mg Documented by: Baricitinib (Baricitinib 2 Mg Tab) 4 mg PO Q24H [facility] Stop: 05/01/21 15:59 Last Admin: 04/18/21 16:57 Dose: 4 mg Documented by: Benzonatate (Benzonatate 100 Mg Capsule) 100 mg PO TID PRN PRN Reason: Cough Stop: 05/17/21 22:01 Last Admin: 04/18/21 16:57 Dose: 100 mg Documented by: Dextrose (Dextrose 50% 50 Ml Syringe) 25 - 50 ml IV UD PRN; Protocol PRN Reason: Hypoglycemia Protocol Stop: 05/16/21 16:48 Enoxaparin Sodium (Enoxaparin Inj 40 Mg/0.4 Ml Syr) 40 mg SQ Q24H [facility] Stop: 05/16/21 17:14 Last Admin: 04/18/21 17:36 Dose: 40 mg Documented by: Glucagon (Glucagon For Inj 1 Mg Vial) 1 mg SQ UD PRN; Protocol PRN Reason: Hypoglycemia Protocol Stop: 05/16/21 16:48 Glucose (Glucose 10 Tabs/Tube) 4 - 8 tabs PO UD PRN; Protocol PRN Reason: Hypoglycemia Protocol Stop: 05/16/21 16:48 Glucose (Glucose 40% Gel 15 Gm Tube) 15 - 30 gm PO UD PRN; Protocol PRN Reason: Hypoglycemia Protocol Stop: 05/16/21 16:48 Hydralazine HCl (Hydralazine Hcl 20 Mg/Ml Vial) 10 mg IV Q6H PRN PRN Reason: HTN Stop: 05/16/21 14:44 Dexamethasone 6 mg/ Syringe 1.5 mls @ 1 mls/min IV DAILY [facility] Stop: 04/27/21 08:59 Last Admin: 04/19/21 09:06 Dose: 1 mls/min Documented by: Ceftriaxone Sodium 2,000 mg/ (Dextrose) 70 mls @ 100 mls/hr IV Q24H [facility]; Protocol Stop: 04/24/21 22:59 Last Infusion: 04/19/21 04:42 Dose: Infused Documented by: Azithromycin 500 mg/ Dextrose 255 mls @ 127.5 mls/hr IV Q24H [facility] Stop: 04/24/21 22:59 Last Infusion: 04/19/21 00:13 Dose: Infused Documented by: Insulin Aspart (Insulin Aspart Per Unit) 0 units SC ACHS [facility] Stop: 05/16/21 16:59 Last Admin: 04/19/21 12:28 Dose: 17 units Documented by: Insulin Glargine (Insulin Glargine Solostar 100 Units/Ml 3 Ml Pen) 0 units SC HS [facility]; Protocol Stop: 04/19/21 21:01 Insulin Human NPH (Insulin Human Nph) 38 units SC Q24H [facility] Stop: 05/17/21 08:59 Last Admin: 04/19/21 09:06 Dose: 38 units Documented by: Miscellaneous (Carbohydrates For Hypoglycemia ) 15 - 30 gm PO UD PRN PRN Reason: Hypoglycemia Protocol Stop: 05/16/21 16:48 Miscellaneous Information (Pharmacy Glycemic Mgmt Consult) 1 ea N/A UD PRN; Protocol PRN Reason: Consult Stop: 05/16/21 16:48 Pantoprazole Sodium (Pantoprazole 40 Mg Tab) 40 mg PO DAILY [facility] Stop: 05/17/21 08:59 Last Admin: 04/19/21 09:08 Dose: 40 mg Documented by:
[2021-04-19] MEDS: BARICITINIB 2 MG TAB PO SCH (17:44)
[2021-04-19] MEDS: ENOXAPARIN INJ 40 MG/0.4 ML SYR SQ SCH (17:45)
[2021-04-19] MEDS: ACETAMINOPHEN 325 MG TAB PO PRN (20:46)
[2021-04-19] MEDS: BENZONATATE 100 MG CAPSULE PO PRN (20:47)
[2021-04-19] MEDS ORDERED: INSULIN GLARGINE SOLOSTAR 100 UNITS/ML 3 ML PEN SC ONE (21:00)
[2021-04-19] MEDS: AZITHROMYCIN 500 MG in DEXTROSE 5% 250 ML IV SCH (23:04)
[2021-04-20 08:01] LABS: Hematocrit (blood only) 41.7 % (42-52); Mean Corpuscular Hemoglobin 30.6 pg (25-34); Mean Corpuscular Hgb Conc 33.6 g/dL (32-36); Mean Platelet Volume 10.7 fL (7.4-10.4); Platelet Count 242 K/uL (130-400); RDW Coefficient of Variation 13.4 % (11.5-14.5); RDW Standard Deviation 44.3 fL (36.4-46.3); Red Blood Count 4.58 M/uL (4.7-6.1); White Blood Count 13.55 K/uL (4.8-10.8)
[2021-04-20 08:33] LABS: BUN Creatinine Ratio 24.4 (10-20); Calcium 8.8 mg/dl (8.5-10.1); Creatinine Clr Calc Pharmacy 131.8 ml/min; Est GFR (African American) 114.7 ml/min; Potassium 4.3 mmol/L (3.5-5.1)
[2021-04-20] MEDS: dexAMETHasone 6 MG in SYRINGE 0 ML IV SCH (09:13)
[2021-04-20] MEDS: amLODIPine BESYLATE 5 MG TAB PO SCH (09:14)
[2021-04-20] MEDS: PANTOprazole 40 MG TAB PO SCH (09:15)
[2021-04-20] MEDS: INSULIN HUMAN NPH SC SCH (09:17)
[2021-04-20] MEDS: INSULIN ASPART PER UNIT SC SCH ×4 (09:21→21:02)
[2021-04-20] MEDS: ACETAMINOPHEN 325 MG TAB PO PRN (09:22)
[2021-04-20] MEDS ORDERED: SODIUM CHLORIDE 0.65% NA SOLN 45 ML (OCEAN) PRN (15:42)
--- NOTE | 2021-04-20 15:55 | Hospitalist Progress Note ---
Date of Service April 20, 2021 Assessment & Plan (1) Acute respiratory failure with hypoxia: Plan: Secondary to COVID-pneumonia. Evidence of cytokine storm with high level oxygen needs transition to high flow nasal cannula, elevated CRP and viral pneumonia. Baricitinib added to steroid therapy and trend inflammatory markers and labs in AM. Continue supportive care with oxygen. Noninvasive ventilation is okay with patient. Prone as tolerated. Out of window of benefit for remdesivir. Continue supportive therapies. Improved clinically but remains on high flow. Encouraged by the decreasing leukocytosis, improved clinical picture and no fever overnight despite elevation in CRP. (2) Pneumonia due to 2019 novel coronavirus: Plan: Plan as above. (3) HTN (hypertension): Plan: BP elevated, HCTZ was held so that he could have lasix on admission. He reports feeling better today. Amlodipine was started as a replacement and currently BP is at goal. No additional Lasix at this time. (4) DM type 2 (diabetes mellitus, type 2): Plan: -Hgb A1c 8.2 10/2020 -Hold oral agents and utilize Lantus and NovoLog per protocol hospitalized -Glycemic pharmacy consulted while receiving IV steroids -Currently euglycemic, cont current therapy. (5) FARNAZ on CPAP: Plan: -CPAP as per home settings (6) Obesity: Plan: -BMI 36.4, elevates his risk of complications with covid-19. (7) DVT prophylaxis: Plan: SQ Lovenox Conditional Code-no intubation, CPR and noninvasive ventilation ok as needed Dispo-cont PCU. Patient's was updated via face time today in the room. Mecredes Chang DO [facility] Hospitalist Admission and Anticipated Discharge Date Admission Date: April 16, 2021 Subjective 51-year-old man presented for evaluation of worsening shortness of breath. Reports a positive home test on April 06 for COVID-19 with symptoms beginning that day. Patient is unvaccinated and was started by primary care doctor on 04/14 with a prednisone taper and albuterol inhaler. Presented with fever diaphoresis and hypoxia. In the ER he was requiring 15 L oxygen mask to maintain appropriate oxygen saturation. Escalated to hi flow oxygen supplementation with cytokine storm. Baricitinib added. Afebrile overnight Feeling well Oxygen needs de-escalating CRP up to 27 but WBC down 15K to 13K and clinically improved. Denies chest pain, leg pain or swelling Denies dysuria. He has been compliant with proning. Updated his via face time in the room. Review of Systems Review of Systems: All systems were reviewed and negative except as indicated above. Physical Exam Physical Exam: CONSTITUTIONAL: WNWD, vitals as above, generally NAD, sitting up in bedside chair EYES: normal conjunctivae, no scleral icterus ENT: external ear and nose normal, MMM NECK: trachea midline RESPIRATORY: clear to auscultation bilaterally, no crackles, rales or wheezes, normal respiratory effort CARDIOVASCULAR: regular rate and rhythm, S1 and 2 heard without murmurs, gallops or rubs, no JVD, no peripheral edema CHEST: inspection of chest was normal GASTROINTESTINAL: soft, nontender, ND, no guarding MUSCULOSKELETAL: strength 5/5 throughout, head is normocephalic and atraumatic, neck supple, normal palpation of chest wall without tenderness SKIN: warm and dry NEUROLOGIC: CN 2-12 grossly intact, no sensory deficit, normal cognition, nor mal speech, no tremor PSYCHIATRIC: alert cooperative and oriented to person, place and time. Results & Data Results & Data ([facility]) Vital Signs (Past 12 Hours) Vital Signs Temp Pulse Resp BP BP Pulse Ox 04/20/21 15:35 37.0 C 80 20 117/80 93 04/20/21 15:10 93 H 20 95 04/20/21 11:11 80 20 94 04/20/21 11:03 36.7 C 89 24 129/78 95 04/20/21 08:16 87 20 94 04/20/21 07:36 37.5 C 71 32 H 117/79 100 04/20/21 04:40 37.7 C H 67 24 121/73 96 Laboratory Results Short CBC 04/20/21 Range/Units 06:42 WBC 13.55 H (4.8-10.8) K/uL Hgb 14.0 (14.0-18.0) g/dL Hct 41.7 L (42-52) % Plt Count 242 (130-400) K/uL BMP 04/20/21 06:42 Sodium 132 L Potassium 4.3 Chloride 94 L Carbon Dioxide 30 BUN 21 Creatinine 0.86 Glucose 195 H Calcium 8.8 Medications Administered Current Inpatient Medications Acetaminophen (Acetaminophen 325 Mg Tab) 650 mg PO Q4H PRN PRN Reason: Pain or Fever Stop: 05/16/21 16:48 Last Admin: 04/20/21 09:22 Dose: 650 mg Documented by: Albuterol (Albuterol Hfa 8 Gm Inhaler) 2 puffs INH Q4R PRN PRN Reason: shortness of breath Stop: 05/16/21 16:48 Amlodipine Besylate (Amlodipine Besylate 5 Mg Tab) 5 mg PO QAM [facility] Stop: 05/17/21 08:59 Last Admin: 04/20/21 09:14 Dose: 5 mg Documented by: Baricitinib (Baricitinib 2 Mg Tab) 4 mg PO Q24H [facility] Stop: 05/01/21 15:59 Last Admin: 04/19/21 17:44 Dose: 4 mg Documented by: Benzonatate (Benzonatate 100 Mg Capsule) 100 mg PO TID PRN PRN Reason: Cough Stop: 05/17/21 22:01 Last Admin: 04/19/21 20:47 Dose: 100 mg Documented by: Dextrose (Dextrose 50% 50 Ml Syringe) 25 - 50 ml IV UD PRN; Protocol PRN Reason: Hypoglycemia Protocol Stop: 05/16/21 16:48 Enoxaparin Sodium (Enoxaparin Inj 40 Mg/0.4 Ml Syr) 40 mg SQ Q24H [facility] Stop: 05/16/21 17:14 Last Admin: 04/19/21 17:45 Dose: 40 mg Documented by: Glucagon (Glucagon For Inj 1 Mg Vial) 1 mg SQ UD PRN; Protocol PRN Reason: Hypoglycemia Protocol Stop: 05/16/21 16:48 Glucose (Glucose 10 Tabs/Tube) 4 - 8 tabs PO UD PRN; Protocol PRN Reason: Hypoglycemia Protocol Stop: 05/16/21 16:48 Glucose (Glucose 40% Gel 15 Gm Tube) 15 - 30 gm PO UD PRN; Protocol PRN Reason: Hypoglycemia Protocol Stop: 05/16/21 16:48 Hydralazine HCl (Hydralazine Hcl 20 Mg/Ml Vial) 10 mg IV Q6H PRN PRN Reason: HTN Stop: 05/16/21 14:44 Dexamethasone 6 mg/ Syringe 1.5 mls @ 1 mls/min IV DAILY [facility] Stop: 04/27/21 08:59 Last Admin: 04/20/21 09:13 Dose: 1 mls/min Documented by: Ceftriaxone Sodium 2,000 mg/ (Dextrose) 70 mls @ 100 mls/hr IV Q24H [facility]; Protocol Stop: 04/24/21 22:59 Last Infusion: 04/19/21 22:40 Dose: Infused Documented by: Azithromycin 500 mg/ Dextrose 255 mls @ 127.5 mls/hr IV Q24H [facility] Stop: 04/24/21 22:59 Last Infusion: 04/20/21 01:09 Dose: Infused Documented by: Insulin Aspart (Insulin Aspart Per Unit) 0 units SC ACHS [facility] Stop: 05/16/21 16:59 Last Admin: 04/20/21 13:19 Dose: 10 units Documented by: Insulin Glargine (Insulin Glargine Solostar 100 Units/Ml 3 Ml Pen) 0 units SC HS [facility]; Protocol Stop: 05/20/21 20:59 Insulin Human NPH (Insulin Human Nph) 38 units SC Q24H [facility] Stop: 05/17/21 08:59 Last Admin: 04/20/21 09:17 Dose: 38 units Documented by: Miscellaneous (Carbohydrates For Hypoglycemia ) 15 - 30 gm PO UD PRN PRN Reason: Hypoglycemia Protocol Stop: 05/16/21 16:48 Miscellaneous Information (Pharmacy Glycemic Mgmt Consult) 1 ea N/A UD PRN; Protocol PRN Reason: Consult Stop: 05/16/21 16:48 Pantoprazole Sodium (Pantoprazole 40 Mg Tab) 40 mg PO DAILY [facility] Stop: 05/17/21 08:59 Last Admin: 04/20/21 09:15 Dose: 40 mg Documented by: Sodium Chloride (Sodium Chloride 0.65% Na Soln 45 Ml ([place])) 2 sprays NA Q2H PRN PRN Reason: dry nose Stop: 05/20/21 15:41
[2021-04-20] MEDS: BARICITINIB 2 MG TAB PO SCH (17:05)
[2021-04-20] MEDS: ENOXAPARIN INJ 40 MG/0.4 ML SYR SQ SCH (17:06)
[2021-04-20] MEDS: BENZONATATE 100 MG CAPSULE PO PRN (20:01)
[2021-04-20] MEDS ORDERED: INSULIN GLARGINE SOLOSTAR 100 UNITS/ML 3 ML PEN SC SCH (21:00)
[2021-04-20] MEDS: cefTRIAXone SODIUM 2,000 MG in DEXTROSE 5% 50 ML IV SCH (23:02)
[2021-04-20] MEDS: AZITHROMYCIN 500 MG in DEXTROSE 5% 250 ML IV SCH (23:39)
[2021-04-21 07:23] LABS: Creatinine Clr Calc Pharmacy 138.5 ml/min
[2021-04-21 08:34] LABS: Hematocrit (blood only) 41.1 % (42-52); Hemoglobin 13.8 g/dL (14.0-18.0); Mean Corpuscular Hemoglobin 30.5 pg (25-34); Mean Corpuscular Hgb Conc 33.6 g/dL (32-36); Mean Corpuscular Volume 90.7 fL (80-100); Mean Platelet Volume 10.9 fL (7.4-10.4); Platelet Count 266 K/uL (130-400); RDW Coefficient of Variation 13.3 % (11.5-14.5); RDW Standard Deviation 44.1 fL (36.4-46.3); Red Blood Count 4.53 M/uL (4.7-6.1); White Blood Count 15.85 K/uL (4.8-10.8)
[2021-04-21] MEDS: dexAMETHasone 6 MG in SYRINGE 0 ML IV SCH (08:42)
[2021-04-21] MEDS: amLODIPine BESYLATE 5 MG TAB PO SCH (08:42)
[2021-04-21] MEDS: PANTOprazole 40 MG TAB PO SCH (08:42)
[2021-04-21] MEDS: INSULIN HUMAN NPH SC SCH (08:47)
[2021-04-21] MEDS: INSULIN ASPART PER UNIT SC SCH ×5 (08:50→21:09)
[2021-04-21 08:53] LABS: Calcium 8.9 mg/dl (8.5-10.1); Creatinine Clr Calc Pharmacy 159.9 ml/min; Est GFR (African American) 124.2 ml/min; Est GFR (Non-African American) 107.1 ml/min; Potassium 3.9 mmol/L (3.5-5.1)
--- NOTE | 2021-04-21 11:23 | Hospitalist Progress Note ---
Date of Service April 21, 2021 Assessment & Plan (1) Acute respiratory failure with hypoxia: Plan: Secondary to COVID-pneumonia. Evidence of cytokine storm with high level oxygen needs transition to high flow nasal cannula, elevated CRP and viral pneumonia. Baricitinib added to steroid therapy and trend inflammatory markers and labs in AM. Continue supportive care with oxygen. Noninvasive ventilation is okay with patient. Prone as tolerated. Out of window of benefit for remdesivir. Continue supportive therapies. Improved clinically but remains on high flow. Encouraged by his decreasing oxygen needs and overall clinical improvement. (2) Pneumonia due to 2019 novel coronavirus: Plan: Plan as above. (3) HTN (hypertension): Plan: BP elevated, HCTZ was held so that he could have lasix on admission. He reports feeling better today. Amlodipine was started as a replacement and currently BP is at goal. No additional Lasix at this time. (4) DM type 2 (diabetes mellitus, type 2): Plan: -Hgb A1c 8.2 10/2020 -Hold oral agents and utilize Lantus and NovoLog per protocol hospitalized -Glycemic pharmacy consulted while receiving IV steroids -Currently euglycemic, cont current therapy. (5) FARNAZ on CPAP: Plan: -CPAP as per home settings (6) Obesity: Plan: -BMI 36.4, elevates his risk of complications with covid-19. (7) DVT prophylaxis: Plan: SQ Lovenox Conditional Code-no intubation, CPR and noninvasive ventilation ok as needed Dispo-cont PCU. Mercedes Chang DO [facility] Hospitalist Admission and Anticipated Discharge Date Admission Date: April 16, 2021 Subjective 51-year-old man presented for evaluation of worsening shortness of breath. Reports a positive home test on April 06 for COVID-19 with symptoms beginning that day. Patient is unvaccinated and was started by primary care doctor on 04/14 with a prednisone taper and albuterol inhaler. Presented with fever diaphoresis and hypoxia. In the ER he was requiring 15 L oxygen mask to maintain appropriate oxygen saturation. Escalated to hi flow oxygen supplementation with cytokine storm. Baricitinib added. Again remains afebrile overnight Feeling well and continues to require less oxygen support which is positive. CRP and WBC elevated. Denies chest pain, leg pain or swelling Denies dysuria. He has been compliant with proning. Tolerating PO Review of Systems Review of Systems: All systems were reviewed and negative except as indicated above. Physical Exam Physical Exam: CONSTITUTIONAL: WNWD, vitals as above, generally NAD, sitting up in bedside chair EYES: normal conjunctivae, no scleral icterus ENT: external ear and nose normal, MMM NECK: trachea midline RESPIRATORY: clear to auscultation bilaterally, no crackles, rales or wheezes, normal respiratory effort CARDIOVASCULAR: regular rate and rhythm, S1 and 2 heard without murmurs, gallops or rubs, no JVD, no peripheral edema CHEST: inspection of chest was normal GASTROINTESTINAL: soft, nontender, ND, no guarding MUSCULOSKELETAL: strength 5/5 throughout, head is normocephalic and atraumatic, neck supple, normal palpation of chest wall without tenderness SKIN: warm and dry NEUROLOGIC: CN 2-12 grossly intact, no sensory deficit, normal cognition, normal speech, no tremor PSYCHIATRIC: alert cooperative and oriented to person, place and time. Results & Data Results & Data ([facility]) Vital Signs (Past 12 Hours) Vital Signs Temp Pulse Resp BP Pulse Ox 04/21/21 11:17 36.5 C 88 24 119/78 90 04/21/21 07:20 66 22 93 04/21/21 07:14 37.5 C 77 24 112/54 L 91 04/21/21 03:42 65 24 96 04/21/21 03:00 37.1 C 75 26 H 107/61 96 Laboratory Results Short CBC 04/21/21 Range/Units 05:59 WBC 15.85 H (4.8-10.8) K/uL Hgb 13.8 L (14.0-18.0) g/dL Hct 41.1 L (42-52) % Plt Count 266 (130-400) K/uL BMP 04/21/21 04/21/21 05:59 05:59 Sodium 133 L Potassium 3.9 Chloride 94 L Carbon Dioxide 31 BUN 22 Creatinine 0.82 0.71 Glucose 93 Calcium 8.9 Medications Administered Current Inpatient Medications Acetaminophen (Acetaminophen 325 Mg Tab) 650 mg PO Q4H PRN PRN Reason: Pain or Fever Stop: 05/16/21 16:48 Last Admin: 04/20/21 09:22 Dose: 650 mg Documented by: Albuterol (Albuterol Hfa 8 Gm Inhaler) 2 puffs INH Q4R PRN PRN Reason: shortness of breath Stop: 05/16/21 16:48 Amlodipine Besylate (Amlodipine Besylate 5 Mg Tab) 5 mg PO QAM [facility] Stop: 05/17/21 08:59 Last Admin: 04/21/21 08:42 Dose: 5 mg Documented by: Baricitinib (Baricitinib 2 Mg Tab) 4 mg PO Q24H [facility] Stop: 05/01/21 15:59 Last Admin: 04/20/21 17:05 Dose: 4 mg Documented by: Benzonatate (Benzonatate 100 Mg Capsule) 100 mg PO TID PRN PRN Reason: Cough Stop: 05/17/21 22:01 Last Admin: 04/20/21 20:01 Dose: 100 mg Documented by: Dextrose (Dextrose 50% 50 Ml Syringe) 25 - 50 ml IV UD PRN; Protocol PRN Reason: Hypoglycemia Protocol Stop: 05/16/21 16:48 Enoxaparin Sodium (Enoxaparin Inj 40 Mg/0.4 Ml Syr) 40 mg SQ Q24H [facility] Stop: 05/16/21 17:14 Last Admin: 04/20/21 17:06 Dose: 40 mg Documented by: Glucagon (Glucagon For Inj 1 Mg Vial) 1 mg SQ UD PRN; Protocol PRN Reason: Hypoglycemia Protocol Stop: 05/16/21 16:48 Glucose (Glucose 10 Tabs/Tube) 4 - 8 tabs PO UD PRN; Protocol PRN Reason: Hypoglycemia Protocol Stop: 05/16/21 16:48 Glucose (Glucose 40% Gel 15 Gm Tube) 15 - 30 gm PO UD PRN; Protocol PRN Reason: Hypoglycemia Protocol Stop: 05/16/21 16:48 Hydralazine HCl (Hydralazine Hcl 20 Mg/Ml Vial) 10 mg IV Q6H PRN PRN Reason: HTN Stop: 05/16/21 14:44 Dexamethasone 6 mg/ Syringe 1.5 mls @ 1 mls/min IV DAILY [facility] Stop: 04/27/21 08:59 Last Admin: 04/21/21 08:42 Dose: 1 mls/min Documented by: Ceftriaxone Sodium 2,000 mg/ (Dextrose) 70 mls @ 100 mls/hr IV Q24H [facility]; Protocol Stop: 04/24/21 22:59 Last Infusion: 04/21/21 01:56 Dose: Infused Documented by: Azithromycin 500 mg/ Dextrose 255 mls @ 127.5 mls/hr IV Q24H [facility] Stop: 04/24/21 22:59 Last Infusion: 04/21/21 01:49 Dose: Infused Documented by: Insulin Aspart (Insulin Aspart Per Unit) 0 units SC AC [facility]; Protocol Stop: 05/21/21 07:59 Last Admin: 04/21/21 08:50 Dose: 24 units Documented by: Insulin Aspart (Insulin Aspart Per Unit) 0 units SC HS [facility]; Protocol Stop: 05/21/21 20:59 Insulin Glargine (Insulin Glargine Solostar 100 Units/Ml 3 Ml Pen) 0 units SC HS [facility]; Protocol Stop: 05/20/21 20:59 Last Admin: 04/20/21 21:03 Dose: 10 units Documented by: Insulin Human NPH (Insulin Human Nph) 50 units SC Q24H [facility]; Protocol Stop: 05/21/21 07:59 Last Admin: 04/21/21 08:47 Dose: 50 units Documented by: Miscellaneous (Carbohydrates For Hypoglycemia ) 15 - 30 gm PO UD PRN PRN Reason: Hypoglycemia Protocol Stop: 05/16/21 16:48 Miscellaneous Information (Pharmacy Glycemic Mgmt Consult) 1 ea N/A UD PRN; Protocol PRN Reason: Consult Stop: 05/16/21 16:48 Pantoprazole Sodium (Pantoprazole 40 Mg Tab) 40 mg PO DAILY [facility] Stop: 05/17/21 08:59 Last Admin: 04/21/21 08:42 Dose: 40 mg Documented by: Sodium Chloride (Sodium Chloride 0.65% Na Soln 45 Ml ([place])) 2 sprays NA Q2H PRN PRN Reason: dry nose Stop: 05/20/21 15:41 Last Admin: 04/20/21 20:00 Dose: 2 sprays Documented by:
--- NOTE | 2021-04-21 15:05 | Pharmacy Report ---
Pharmacy Glycemic Short Note 2 - Date of Service April 21, 2021 - Glycemic Short BSG Results (Last 24 hours): 04/20/21 04/20/21 04/21/21 16:41 20:10 05:59 Glucose 93 POC Glucose 277 H 235 H 04/21/21 04/21/21 07:12 11:19 Glucose POC Glucose 107 H 208 H OUTPATIENT ANTIDIABETIC REGIMEN: * Metformin 1000 mg PO BID * Dulaglutide 3 mg SQ weekly on Thu * A1c: 9.2% (04/17/21) ASSESSMENT: 04/21: * Blood sugars continue to trend up with steroid throughout the day and then drop overnight * Tighten CF/CR AC and increase NPH to cover steroid effects * Loosen HS, and DC Lantus to prevent AM hypoglycemia 04/19: * Fasting improved with addition of 10 units of lantus, will continue scale for PM tonight * Continued same NPH dose (0.4 unit/kg adjbw) with dexamethasone and tightedn carb ratio, lunch BSG improved continue to monitor for additional changes 04/17: * BSGs trended down nicely yesterday following initial NPH dose, 330 -> 264 -> 145 mg/dL * Fasting BSG of 168 mg/dL this morning * Will give full adjusted-body weight based 0.4 unit/kg NPH with dexamethasone today * Continue current Novolog parameters 04/16: * Adolfo is a 51 yo T2DM admitted with COVID-19 pneumonia. * Hyperglycemic at the time of admission. Ordered dexamethasone 10 mg IV x 1 in ED, then 6 mg IV daily. * Will hold oral agents and start basal + bolus insulin * NPH 20 units SQ x 1 (0.2 units/kg dosed on AdjBW) - partial dose today since being given in the evening * Novolog based on weight stress 2-3 PLAN FOR INPATIENT GLYCEMIC CONTROL: * Hold outpatient oral diabetes medications * Basal insulin * DC Lantus * NPH 50 units SQ daily * Bolus insulin * NovoLog per scale ACHS or Q6hrs while NPO * Goal Range: Low 110 mg/dL - High 140 mg/dL * Correction Factor: 10 mg/dL/unit AC, 25 mg/dL/unit HS * Nutritional / Prandial insulin per carb ratio of 1 unit per 2.5 grams CHO consumed AC, 1 unit per 12 grams CHO consumed HS PLAN FOR DISCHARGE: * HbA1c: 9.2% suggests poor outpatient glycemic control * Reasonable to continue metformin and Trulicity at discharge * Consider addition of second oral agent that would minimize weight gain/promote weight loss, such as SGLT2 inhibitor * Initial dosing of empagliflozin would be 10 mg PO daily * Alternatively, if patient agreeable to insulin, could consider once daily basa l insulin (although, concern for insulin-induced weight gain)
[2021-04-21] MEDS: ENOXAPARIN INJ 40 MG/0.4 ML SYR SQ SCH (17:44)
[2021-04-21] MEDS: BARICITINIB 2 MG TAB PO SCH (17:44)
[2021-04-21] MEDS: ACETAMINOPHEN 325 MG TAB PO PRN (20:01)
[2021-04-21] MEDS: cefTRIAXone SODIUM 2,000 MG in DEXTROSE 5% 50 ML IV SCH (21:24)
[2021-04-21] MEDS: AZITHROMYCIN 500 MG in DEXTROSE 5% 250 ML IV SCH (22:57)
[2021-04-22 07:27] LABS: Hematocrit (blood only) 41.9 % (42-52); Hemoglobin 13.9 g/dL (14.0-18.0); Mean Corpuscular Hemoglobin 30.2 pg (25-34); Mean Corpuscular Hgb Conc 33.2 g/dL (32-36); Mean Corpuscular Volume 91.1 fL (80-100); Mean Platelet Volume 10.8 fL (7.4-10.4); Platelet Count 262 K/uL (130-400); RDW Coefficient of Variation 13.4 % (11.5-14.5); RDW Standard Deviation 44.4 fL (36.4-46.3)
[2021-04-22 07:47] LABS: Calcium 9.1 mg/dl (8.5-10.1); Creatinine Clr Calc Pharmacy 146.9 ml/min; Est GFR (African American) 120.1 ml/min; Est GFR (Non-African American) 103.6 ml/min; Potassium 4.4 mmol/L (3.5-5.1)
[2021-04-22] MEDS: dexAMETHasone 6 MG in SYRINGE 0 ML IV SCH (08:23)
[2021-04-22] MEDS: amLODIPine BESYLATE 5 MG TAB PO SCH (08:24)
[2021-04-22] MEDS: PANTOprazole 40 MG TAB PO SCH (08:24)
[2021-04-22] MEDS: INSULIN ASPART PER UNIT SC SCH ×4 (08:35→20:32)
[2021-04-22] MEDS: INSULIN HUMAN NPH SC SCH (09:34)
[2021-04-22 11:47] LABS: C Reactive Protein 22.32 mg/dl (0-0.5)
[2021-04-22 12:10] LABS: C Reactive Protein 22.64 mg/dl (0-0.5)
[2021-04-22 12:35] LABS: C Reactive Protein 27.2 mg/dl (0-0.5)
[2021-04-22 12:46] LABS: C Reactive Protein 26.62 mg/dl (0-0.5)
[2021-04-22 12:51] LABS: C Reactive Protein 25.23 mg/dl (0-0.5)
[2021-04-22] MEDS ORDERED: LORazepam 0.5 MG TAB PO STA (12:53)
[2021-04-22] MEDS ORDERED: POTASSIUM CHLORIDE CRTAB 20 MEQ TABCR PO STA (12:55)
[2021-04-22] MEDS ORDERED: LORazepam 0.5 MG TAB PO PRN (12:55)
[2021-04-22] MEDS ORDERED: FUROSEMIDE 40 MG/4 ML VIAL IV ONE (12:55)
--- NOTE | 2021-04-22 13:09 | Hospitalist Progress Note ---
Date of Service April 22, 2021 Assessment & Plan (1) Acute respiratory failure with hypoxia: Plan: Secondary to COVID-pneumonia. Evidence of cytokine storm with high level oxygen needs transition to high flow nasal cannula, elevated CRP and viral pneumonia. Baricitinib added to steroid therapy and trend inflammatory markers and labs in AM. Continue supportive care with oxygen. Noninvasive ventilation is okay with patient. Prone as tolerated. Out of window of benefit for remdesivir. Continue supportive therapies. Improved clinically but remains on high flow. Encouraged by his decreasing oxygen needs and overall clinical improvement. (2) Pneumonia due to 2019 novel coronavirus: Plan: Plan as above. (3) HTN (hypertension): Plan: BP elevated, HCTZ was held so that he could have lasix on admission. He reports feeling better today. Amlodipine was started as a replacement and currently BP is at goal. Some Lasix given today with increased work of breathing. (4) DM type 2 (diabetes mellitus, type 2): Plan: -Hgb A1c 8.2 10/2020 -Hold oral agents and utilize Lantus and NovoLog per protocol hospitalized -Glycemic pharmacy consulted while receiving IV steroids -Currently euglycemic, cont current therapy. (5) FARNAZ on CPAP: Plan: -CPAP as per home settings (6) Obesity: Plan: -BMI 36.4, elevates his risk of complications with covid-19. (7) Anxiety: Plan: Appears to be panicking, making his breahting worse. Ativan given 0.5mg dose and later he reported feeling much better overall. Will work on request for a new bed to help him sleep, also. (8) DVT prophylaxis: Plan: SQ Lovenox Conditional Code-no intubation, CPR and noninvasive ventilation ok as needed Dispo-cont PCU. Mercedes Chang DO [facility] Hospitalist Admission and Anticipated Discharge Date Admission Date: April 16, 2021 Subjective 51-year-old man presented for evaluation of worsening shortness of breath. Reports a positive home test on April 06 for COVID-19 with symptoms beginning that day. Patient is unvaccinated and was started by primary care doctor on 04/14 with a prednisone taper and albuterol inhaler. Presented with fever diaphoresis and hypoxia. In the ER he was requiring 15 L oxygen mask to maintain appropriate oxygen saturation. Escalated to hi flow oxygen supplementation with cytokine storm. Baricitinib added. Anxious and feels short of breath Still oxygenating well on 50LPM hi flow Difficulty sleeping overnight because of the mattress Requested air mattress Review of Systems Review of Systems: All systems were reviewed and negative except as indicated above. Physical Exam Physical Exam: CONSTITUTIONAL: WNWD, vitals as above, generally NAD, sitting up in bedside chair, periods of anxiety and breathlessness EYES: normal conjunctivae, no scleral icterus ENT: external ear and nose normal, MMM NECK: trachea midline RESPIRATORY: clear to auscultation bilaterally, no crackles, rales or wheezes, normal respiratory effort CARDIOVASCULAR: regular rate and rhythm, S1 and 2 heard without murmurs, gallops or rubs, no JVD, no peripheral edema CHEST: inspection of chest was normal GASTROINTESTINAL: soft, nontender, ND, no guarding MUSCULOSKELETAL: strength 5/5 throughout, head is normocephalic and atraumatic, neck supple, normal palpation of chest wall without tenderness SKIN: warm and dry NEUROLOGIC: CN 2-12 grossly intact, no sensory deficit, normal cognition, normal speech, no tremor PSYCHIATRIC: alert cooperative and oriented to person, place and time. Results & Data Results & Data ([facility]) Vital Signs (Past 12 Hours) Vital Signs Temp Pulse Pulse Pulse Resp BP Pulse Ox 04/22/21 11:34 36.4 C L 86 30 H 132/76 88 L 04/22/21 10:42 83 20 90 04/22/21 07:28 37.2 C 99 H 22 143/78 H 90 04/22/21 07:23 97 H 04/22/21 07:14 101 H 22 94 04/22/21 03:40 87 20 95 04/22/21 02:57 37.3 C 87 20 115/63 96 Laboratory Results Short CBC 04/22/21 Range/Units 05:43 WBC 16.20 H (4.8-10.8) K/uL Hgb 13.9 L (14.0-18.0) g/dL Hct 41.9 L (42-52) % Plt Count 262 (130-400) K/uL BMP 04/22/21 05:43 Sodium 134 L Potassium 4.4 Chloride 94 L Carbon Dioxide 31 BUN 20 Creatinine 0.77 Glucose 104 H Calcium 9.1 Medications Administered Current Inpatient Medications Acetaminophen (Acetaminophen 500 Mg Tab) 1,000 mg PO Q8H [facility] Stop: 05/22/21 12:59 Albuterol (Albuterol Hfa 8 Gm Inhaler) 2 puffs INH Q4R PRN PRN Reason: shortness of breath Stop: 05/16/21 16:48 Amlodipine Besylate (Amlodipine Besylate 5 Mg Tab) 5 mg PO QAM [facility] Stop: 05/17/21 08:59 Last Admin: 04/22/21 08:24 Dose: 5 mg Documented by: Baricitinib (Baricitinib 2 Mg Tab) 4 mg PO Q24H [facility] Stop: 05/01/21 15:59 Last Admin: 04/21/21 17:44 Dose: 4 mg Documented by: Benzonatate (Benzonatate 100 Mg Capsule) 100 mg PO TID PRN PRN Reason: Cough Stop: 05/17/21 22:01 Last Admin: 04/20/21 20:01 Dose: 100 mg Documented by: Dextrose (Dextrose 50% 50 Ml Syringe) 25 - 50 ml IV UD PRN; Protocol PRN Reason: Hypoglycemia Protocol Stop: 05/16/21 16:48 Enoxaparin Sodium (Enoxaparin Inj 40 Mg/0.4 Ml Syr) 40 mg SQ Q24H [facility] Stop: 05/16/21 17:14 Last Admin: 04/21/21 17:44 Dose: 40 mg Documented by: Furosemide (Furosemide 40 Mg/4 Ml Vial) 40 mg IV ONE ONE Stop: 04/22/21 12:56 Glucagon (Glucagon For Inj 1 Mg Vial) 1 mg SQ UD PRN; Protocol PRN Reason: Hypoglycemia Protocol Stop: 05/16/21 16:48 Glucose (Glucose 10 Tabs/Tube) 4 - 8 tabs PO UD PRN; Protocol PRN Reason: Hypoglycemia Protocol Stop: 05/16/21 16:48 Glucose (Glucose 40% Gel 15 Gm Tube) 15 - 30 gm PO UD PRN; Protocol PRN Reason: Hypoglycemia Protocol Stop: 05/16/21 16:48 Hydralazine HCl (Hydralazine Hcl 20 Mg/Ml Vial) 10 mg IV Q6H PRN PRN Reason: HTN Stop: 05/16/21 14:44 Dexamethasone 6 mg/ Syringe 1.5 mls @ 1 mls/min IV DAILY [facility] Stop: 04/27/21 08:59 Last Admin: 04/22/21 08:23 Dose: 1 mls/min Documented by: Ceftriaxone Sodium 2,000 mg/ (Dextrose) 70 mls @ 100 mls/hr IV Q24H [facility]; Protocol Stop: 04/24/21 22:59 Last Infusion: 04/21/21 22:07 Dose: Infused Documented by: Azithromycin 500 mg/ Dextrose 255 mls @ 127.5 mls/hr IV Q24H [facility] Stop: 04/24/21 22:59 Last Infusion: 04/22/21 01:36 Dose: Infused Documented by: Insulin Aspart (Insulin Aspart Per Unit) 0 units SC AC [facility]; Protocol Stop: 05/21/21 07:59 Last Admin: 04/22/21 13:07 Dose: 25 units Documented by: Insulin Aspart (Insulin Aspart Per Unit) 0 units SC [facility]; Protocol Stop: 05/21/21 20:59 Last Admin: 04/21/21 21:09 Dose: 2 units Documented by: Insulin Glargine (Insulin Glargine Solostar 100 Units/Ml 3 Ml Pen) 0 units SC [facility]; Protocol Stop: 05/20/21 20:59 Last Admin: 04/20/21 21:03 Dose: 10 units Documented by: Insulin Human NPH (Insulin Human Nph) 50 units SC Q24H [facility]; Protocol Stop: 05/21/21 07:59 Last Admin: 04/22/21 09:34 Dose: 50 units Documented by: Lorazepam (Lorazepam 0.5 Mg Tab) 0.5 mg PO Q12H PRN PRN Reason: severe Anxiety Stop: 05/22/21 12:54 Miscellaneous (Carbohydrates For Hypoglycemia ) 15 - 30 gm PO UD PRN PRN Reason: Hypoglycemia Protocol Stop: 05/16/21 16:48 Miscellaneous Information (Pharmacy Glycemic Mgmt Consult) 1 ea N/A UD PRN; Protocol PRN Reason: Consult Stop: 05/16/21 16:48 Pantoprazole Sodium (Pantoprazole 40 Mg Tab) 40 mg PO DAILY [facility] Stop: 05/17/21 08:59 Last Admin: 04/22/21 08:24 Dose: 40 mg Documented by: Potassium Chloride (Potassium Chloride Crtab 20 Meq Tabcr) 20 meq PO NOW STA Stop: 04/22/21 12:56 Sodium Chloride (Sodium Chloride 0.65% Na Soln 45 Ml ([place])) 2 sprays NA Q2H PRN PRN Reason: dry nose Stop: 05/20/21 15:41 Last Admin: 04/20/21 20:00 Dose: 2 sprays Documented by:
[2021-04-22] MEDS: ACETAMINOPHEN 500 MG TAB PO SCH ×2 (13:25→20:27)
--- NOTE | 2021-04-22 13:41 | XRay Report ---
XR chest 1V portable CLINICAL HISTORY: covid+, worsening hypoxia TECHNIQUE: Single frontal radiograph of the chest was obtained. Comparison: Comparison is made to chest one view 04/18/2021 FINDINGS: No lines and tubes are seen. The cardiomediastinal silhouette is normal. Multifocal airspace opacitie s are seen. No evidence of pleural effusion or pneumothorax. IMPRESSION: Multifocal airspace opacities, stable to minimally increased from prior exam. ACT 112: Negative or not required by law. Electronically signed by: Sanchez Guillen M.D. 04/22/2021 1:39 PM
[2021-04-22] MEDS: BARICITINIB 2 MG TAB PO SCH (15:27)
[2021-04-22] MEDS: ENOXAPARIN INJ 40 MG/0.4 ML SYR SQ SCH (17:21)
[2021-04-22] MEDS: cefTRIAXone SODIUM 2,000 MG in DEXTROSE 5% 50 ML IV SCH (21:05)
[2021-04-22] MEDS: AZITHROMYCIN 500 MG in DEXTROSE 5% 250 ML IV SCH (22:31)
[2021-04-23] MEDS: ACETAMINOPHEN 500 MG TAB PO SCH ×3 (04:36→20:46)
[2021-04-23 06:57] LABS: Hematocrit (blood only) 43.4 % (42-52); Hemoglobin 14.7 g/dL (14.0-18.0); Mean Corpuscular Hemoglobin 30.6 pg (25-34); Mean Corpuscular Hgb Conc 33.9 g/dL (32-36); Mean Corpuscular Volume 90.4 fL (80-100); Mean Platelet Volume 10.4 fL (7.4-10.4); Platelet Count 218 K/uL (130-400); RDW Coefficient of Variation 13.3 % (11.5-14.5); RDW Standard Deviation 44.4 fL (36.4-46.3); White Blood Count 24.46 K/uL (4.8-10.8)
[2021-04-23 07:21] LABS: Basophils # (auto) 0.03 K/uL (0-0.2); Basophils % (auto) 0.1 %; Eosinophils % (auto) 0.4 %; Immature Granulocytes # (auto) 0.56 K/uL (0.00-0.02); Immature Granulocytes % (auto) 2.3 %; Lymphocytes # (auto) 0.71 K/uL (1.2-3.4); Lymphocytes % (auto) 2.9 %; Monocytes # (auto) 0.68 K/uL (0.11-0.59); Monocytes % (auto) 2.8 %; Neutrophils # (auto) 22.38 K/uL (1.4-6.5); Neutrophils % (auto) 91.5 %
[2021-04-23 08:00] LABS: BUN Creatinine Ratio 27.5 (10-20); C Reactive Protein 27.94 mg/dl (0-0.5); Calcium 9.1 mg/dl (8.5-10.1); Creatinine Clr Calc Pharmacy 142.2 ml/min; Est GFR (African American) 118.2 ml/min; Potassium 4.1 mmol/L (3.5-5.1)
[2021-04-23] MEDS: INSULIN ASPART PER UNIT SC SCH ×4 (08:25→19:44)
[2021-04-23] MEDS: INSULIN HUMAN NPH SC SCH (08:30)
[2021-04-23] MEDS: dexAMETHasone 6 MG in SYRINGE 0 ML IV SCH (08:38)
[2021-04-23] MEDS: PANTOprazole 40 MG TAB PO SCH (08:39)
[2021-04-23] MEDS: amLODIPine BESYLATE 5 MG TAB PO SCH (08:39)
[2021-04-23] MEDS: LORazepam 0.5 MG TAB PO PRN ×2 (09:37→19:51)
--- NOTE | 2021-04-23 15:42 | Hospitalist Progress Note ---
Date of Service April 23, 2021 Assessment & Plan (1) Acute respiratory failure with hypoxia: Plan: Secondary to COVID-pneumonia. Evidence of cytokine storm with high level oxygen needs transition to high flow nasal cannula, elevated CRP and viral pneumonia. Baricitinib added to steroid therapy and trend inflammatory markers and labs in AM. Continue supportive care with oxygen. Noninvasive ventilation is okay with patient. Prone as tolerated. Out of window of benefit for remdesivir. Continue supportive therapies. Improved clinically but remains on high flow. Encouraged by his decreasing oxygen needs and overall clinical improvement. (2) Pneumonia due to 2019 novel coronavirus: Plan: Plan as above. (3) HTN (hypertension): Plan: BP elevated, HCTZ was held so that he could have lasix on admission. He reports feeling better today. Amlodipine was started as a replacement and currently BP is at goal. (4) DM type 2 (diabetes mellitus, type 2): Plan: -Hgb A1c 8.2 10/2020 -Hold oral agents and utilize Lantus and NovoLog per protocol hospitalized -Glycemic pharmacy consulted while receiving IV steroids -Currently euglycemic, cont current therapy. (5) FARNAZ on CPAP: Plan: -CPAP as per home settings (6) Obesity: Plan: -BMI 36.4, elevates his risk of complications with covid-19. (7) Anxiety: Plan: Improved with Ativan and less aggressive weaning of his oxygen supplementation. (8) DVT prophylaxis: Plan: SQ Lovenox Conditional Code-no intubation, CPR and noninvasive ventilation ok as needed Dispo-cont PCU. Mercedes Chang DO [facility] Hospitalist Admission and Anticipated Discharge Date Admission Date: April 16, 2021 Subjective 51-year-old man presented for evaluation of worsening shortness of breath. Reports a positive home test on April 06 for COVID-19 with symptoms beginning that day. Patient is unvaccinated and was started by primary care doctor on 04/14 with a prednisone taper and albuterol inhaler. Presented with fever diaphoresis and hypoxia. In the ER he was requiring 15 L oxygen mask to maintain appropriate oxygen saturation. Escalated to hi flow oxygen supplementation with cytokine storm. Baricitinib added. Anxious and feels short of breath Mattress changed out but patient is preferring the recliner Worsening anxiety with weaning, which improved when RT put him back on original settings Asked to hold off on any further weaning this evening with elevated WBC, persistently elevated CRP. ID consult placed Initially ordered CT chest Review of Systems Review of Systems: All systems were reviewed and negative except as indicated above. Physical Exam Physical Exam: CONSTITUTIONAL: WNWD, vitals as above, generally NAD, sitting up in bedside chair, periods of anxiety and breathlessness EYES: normal conjunctivae, no scleral icterus ENT: external ear and nose normal, MMM NECK: trachea midline RESPIRATORY: clear to auscultation bilaterally, no crackles, rales or wheezes, normal respiratory effort CARDIOVASCULAR: regular rate and rhythm, S1 and 2 heard without murmurs, gallops or rubs, no JVD, no peripheral edema CHEST: inspection of chest was normal GASTROINTESTINAL: soft, nontender, ND, no guarding MUSCULOSKELETAL: strength 5/5 throughout, head is normocephalic and atraumatic, neck supple, normal palpation of chest wall without tenderness SKIN: warm and dry NEUROLOGIC: CN 2-12 grossly intact, no sensory deficit, normal cognition, normal speech, no tremor PSYCHIATRIC: alert cooperative and oriented to person, place and time. Results & Data Results & Data ([facility]) Vital Signs (Past 12 Hours) Vital Signs Temp Pulse Pulse Resp BP Pulse Ox 04/23/21 14:20 105 H 18 92 04/23/21 11:24 36.6 C 77 27 H 109/64 93 04/23/21 10:30 102 H 22 91 04/23/21 07:23 116 H 24 95 04/23/21 07:19 36.9 C 112 H 27 H 145/107 H 97 04/23/21 04:33 94 H 27 H 92 Laboratory Results Short CBC 04/23/21 Range/Units 06:08 WBC 24.46 H (4.8-10.8) K/uL Hgb 14.7 (14.0-18.0) g/dL Hct 43.4 (42-52) % Plt Count 218 (130-400) K/uL BMP 04/23/21 06:08 Sodium 132 L Potassium 4.1 Chloride 93 L Carbon Dioxide 28 BUN 22 Creatinine 0.80 Glucose 107 H Calcium 9.1 Medications Administered Current Inpatient Medications Acetaminophen (Acetaminophen 500 Mg Tab) 1,000 mg PO Q8H [facility] Stop: 05/22/21 12:59 Last Admin: 04/23/21 12:41 Dose: 1,000 mg Documented by: Albuterol (Albuterol Hfa 8 Gm Inhaler) 2 puffs INH Q4R PRN PRN Reason: shortness of breath Stop: 05/16/21 16:48 Amlodipine Besylate (Amlodipine Besylate 5 Mg Tab) 5 mg PO QAM [facility] Stop: 05/17/21 08:59 Last Admin: 04/23/21 08:39 Dose: 5 mg Documented by: Baricitinib (Baricitinib 2 Mg Tab) 4 mg PO Q24H [facility] Stop: 05/01/21 15:59 Last Admin: 04/22/21 15:27 Dose: 4 mg Documented by: Benzonatate (Benzonatate 100 Mg Capsule) 100 mg PO TID PRN PRN Reason: Cough Stop: 05/17/21 22:01 Last Admin: 04/20/21 20:01 Dose: 100 mg Documented by: Dextrose (Dextrose 50% 50 Ml Syringe) 25 - 50 ml IV UD PRN; Protocol PRN Reason: Hypoglycemia Protocol Stop: 05/16/21 16:48 Enoxaparin Sodium (Enoxaparin Inj 40 Mg/0.4 Ml Syr) 40 mg SQ Q24H [facility] Stop: 05/16/21 17:14 Last Admin: 04/22/21 17:21 Dose: 40 mg Documented by: Glucagon (Glucagon For Inj 1 Mg Vial) 1 mg SQ UD PRN; Protocol PRN Reason: Hypoglycemia Protocol Stop: 05/16/21 16:48 Glucose (Glucose 10 Tabs/Tube) 4 - 8 tabs PO UD PRN; Protocol PRN Reason: Hypoglycemia Protocol Stop: 05/16/21 16:48 Glucose (Glucose 40% Gel 15 Gm Tube) 15 - 30 gm PO UD PRN; Protocol PRN Reason: Hypoglycemia Protocol Stop: 05/16/21 16:48 Hydralazine HCl (Hydralazine Hcl 20 Mg/Ml Vial) 10 mg IV Q6H PRN PRN Reason: HTN Stop: 05/16/21 14:44 Dexamethasone 6 mg/ Syringe 1.5 mls @ 1 mls/min IV DAILY [facility] Stop: 04/27/21 08:59 Last Admin: 04/23/21 08:38 Dose: 1 mls/min Documented by: Ceftriaxone Sodium 2,000 mg/ (Dextrose) 70 mls @ 100 mls/hr IV Q24H [facility]; Protocol Stop: 04/24/21 22:59 Last Infusion: 04/22/21 21:50 Dose: Infused Documented by: Insulin Aspart (Insulin Aspart Per Unit) 0 units SC AC [facility]; Protocol Stop: 05/21/21 07:59 Last Admin: 04/23/21 12:00 Dose: 7 units Documented by: Insulin Aspart (Insulin Aspart Per Unit) 0 units SC HS [facility]; Protocol Stop: 05/21/21 20:59 Last Admin: 04/22/21 20:32 Dose: 2 units Documented by: Insulin Glargine (Insulin Glargine Solostar 100 Units/Ml 3 Ml Pen) 0 units SC HS [facility]; Protocol Stop: 05/20/21 20:59 Last Admin: 04/20/21 21:03 Dose: 10 units Documented by: Insulin Human NPH (Insulin Human Nph) 50 units SC Q24H [facility]; Protocol Stop: 05/21/21 07:59 Last Admin: 04/23/21 08:30 Dose: 50 units Documented by: Lorazepam (Lorazepam 0.5 Mg Tab) 0.5 mg PO Q6H PRN PRN Reason: severe Anxiety Stop: 05/22/21 12:54 Last Admin: 04/23/21 09:37 Dose: 0.5 mg Documented by: Miscellaneous (Carbohydrates For Hypoglycemia ) 15 - 30 gm PO UD PRN PRN Reason: Hypoglycemia Protocol Stop: 05/16/21 16:48 Miscellaneous Information (Pharmacy Glycemic Mgmt Consult) 1 ea N/A UD PRN; Protocol PRN Reason: Consult Stop: 05/16/21 16:48 Pantoprazole Sodium (Pantoprazole 40 Mg Tab) 40 mg PO DAILY [facility] Stop: 05/17/21 08:59 Last Admin: 04/23/21 08:39 Dose: 40 mg Documented by: Sodium Chloride (Sodium Chloride 0.65% Na Soln 45 Ml ([place])) 2 sprays NA Q2H PRN PRN Reason: dry nose Stop: 05/20/21 15:41 Last Admin: 04/20/21 20:00 Dose: 2 sprays Documented by:
[2021-04-23] MEDS: BARICITINIB 2 MG TAB PO SCH (17:33)
[2021-04-23] MEDS: ENOXAPARIN INJ 40 MG/0.4 ML SYR SQ SCH (17:33)
[2021-04-23] MEDS: cefTRIAXone SODIUM 2,000 MG in DEXTROSE 5% 50 ML IV SCH (21:02)
[2021-04-24] MEDS ORDERED: ALBUT/IPRATROP 3MG/0.5MG NEB 3 ML VIAL NEB STA (00:38)
[2021-04-24] MEDS ORDERED: ALBUT/IPRATROP 3MG/0.5MG NEB 3 ML VIAL ONE (00:42)
[2021-04-24] MEDS ORDERED: MAGNESIUM SULFATE / D5W 1 GM/100 ML BAG IV ONE (00:50)
--- NOTE | 2021-04-24 00:53 | Communication Note ---
Date of Service: April 24, 2021 12:35 AM Made aware by RN of respiratory distress on BiPAP. AP Worsening respiratory failure secondary to COVID-19 pneumonia ABG, CXR now Decadron early administration, nebs Patient (Ms. Piedad Ferguson) updated of worsening condition over the phone. CODE STATUS de-escalated to DNR. Continue BiPAP and medical management for now as per . Will relay to AM provider.
[2021-04-24] MEDS ORDERED: dexAMETHasone 6 MG in SYRINGE 0 ML IV ONE (01:00)
[2021-04-24 01:22] LABS: Basophils # (auto) 0.02 K/uL (0-0.2); Basophils % (auto) 0.1 %; Eosinophils # (auto) 0.05 K/uL (0-0.5); Eosinophils % (auto) 0.3 %; Hematocrit (blood only) 40.7 % (42-52); Hemoglobin 13.7 g/dL (14.0-18.0); Immature Granulocytes # (auto) 0.55 K/uL (0.00-0.02); Immature Granulocytes % (auto) 2.8 %; Lymphocytes # (auto) 0.77 K/uL (1.2-3.4); Lymphocytes % (auto) 3.9 %; Mean Corpuscular Hemoglobin 30.4 pg (25-34); Mean Corpuscular Hgb Conc 33.7 g/dL (32-36); Mean Corpuscular Volume 90.4 fL (80-100); Mean Platelet Volume 10.2 fL (7.4-10.4); Monocytes % (auto) 2.6 %; Neutrophils # (auto) 17.65 K/uL (1.4-6.5); Neutrophils % (auto) 90.3 %; Platelet Count 175 K/uL (130-400); RDW Coefficient of Variation 13.3 % (11.5-14.5); RDW Standard Deviation 43.9 fL (36.4-46.3); White Blood Count 19.54 K/uL (4.8-10.8)
[2021-04-24 01:31] LABS: Partial Thromboplastin Ratio 1.1; Partial Thromboplastin Time 29.1 Seconds (21.0-31.0)
[2021-04-24 01:36] LABS: Base Excess ABG 3.9 mEq/L (-9-1.8); HCO3 ABG 28 mmol/L (19-24); Oxygen Saturation ABG 83.3 % (90-95); PCO2 ABG 38 mmHg (35-46); PO2 ABG 47 mmHg (80-95); pH ABG 7.47 (7.35-7.45)
[2021-04-24 01:38] LABS: Allen Test Pos (Pos)
[2021-04-24 01:50] LABS: Albumin Globulin Ratio 0.8 (0.9-2); Albumin Level 2.9 gm/dl (3.4-5.0); BUN Creatinine Ratio 24.1 (10-20); Bilirubin,Total 0.6 mg/dl (0.2-1.0); C Reactive Protein 28.29 mg/dl (0-0.5); Calcium 9.1 mg/dl (8.5-10.1); Creatinine Clr Calc Pharmacy 137.1 ml/min; Est GFR (African American) 116.4 ml/min; Est GFR (Non-African American) 100.5 ml/min; Globulin 3.5 gm/dl (2.5-4.0); Magnesium 2.1 mg/dl (1.7-2.4); Phosphorus 4.1 mg/dl (2.5-4.9); Potassium 3.8 mmol/L (3.5-5.1); Total Protein 6.4 gm/dl (6.0-8.3)
[2021-04-24] MEDS: DEXTROSE 50% 50 ML SYRINGE IV PRN (01:55)
[2021-04-24] MEDS ORDERED: FUROSEMIDE INJ 20 MG/2 ML VIAL IV ONE (01:56)
[2021-04-24] MEDS: POTASSIUM CHLORIDE / WTR 10 MEQ/100 ML PLCT IV SCH ×2 (04:10→05:29)
[2021-04-24] MEDS: ACETAMINOPHEN 500 MG TAB PO SCH ×3 (06:18→22:16)
[2021-04-24] MEDS: LORazepam 0.5 MG TAB PO PRN ×2 (07:15→13:00)
--- NOTE | 2021-04-24 07:54 | XRay Report ---
SINGLE VIEW CHEST CLINICAL HISTORY: Hypoxia. Covid pneumonia. FINDINGS: An AP, portable, upright chest radiograph is compared to study dated 04/22/2021. Correlation is made with chest CT dated 05/11/2010. The examination is degraded by portable technique and patient rotation. The cardiomediastinal silhouette is unremarkable. Extensive/multifocal airspace consolidat ion has not appreciably changed as compared to 04/22/2021. No large pleural effusion or pneumothorax i s seen. The bony thorax is grossly intact. IMPRESSION: Multifocal airspace consolidation has not appreciably changed as compared to 04/22/2021. ACT 112: Negative or not required by law. Electronically signed by: Brady Cam M.D. 04/24/2021 7:53 AM
[2021-04-24] MEDS: PANTOprazole 40 MG TAB PO SCH ×2 (08:30→09:52)
[2021-04-24] MEDS: amLODIPine BESYLATE 5 MG TAB PO SCH ×2 (08:31→09:52)
[2021-04-24] MEDS: INSULIN ASPART PER UNIT SC SCH ×4 (08:32→20:58)
[2021-04-24] MEDS ORDERED: NSS 30mL Flush, Days 1-5 IV SCH (12:00)
[2021-04-24] MEDS ORDERED: INSULIN HUMAN NPH SC ONE (12:30)
--- NOTE | 2021-04-24 12:34 | Hospitalist Progress Note ---
Date of Service April 24, 2021 Assessment & Plan (1) Acute respiratory failure with hypoxia: Plan: Secondary to COVID-pneumonia. Evidence of cytokine storm with high level oxygen needs transition to high flow nasal cannula, elevated CRP and viral pneumonia. Baricitinib added to steroid therapy and trend inflammatory markers and labs Continue supportive care with oxygen. Noninvasive ventilation is okay with patient. Prone as tolerated. Continue supportive therapies. Empiric Full Dose Lovenox started, Will start remdesivir even though out of window. D/W Piedad, D/W patient absolutely doesn't want the vent, I told to keep talking to him about the vent (2) Pneumonia due to 2019 novel coronavirus: Plan: Plan as above. (3) HTN (hypertension): Plan: BP elevated, HCTZ was held so that he could have lasix on admission. He reports feeling better today. Amlodipine was started as a replacement and currently BP is at goal. (4) DM type 2 (diabetes mellitus, type 2): Plan: -Hgb A1c 8.2 10/2020 -Hold oral agents and utilize Lantus and NovoLog per protocol hospitalized -Glycemic pharmacy consulted while receiving IV steroids -Currently euglycemic, cont current therapy. (5) FARNAZ on CPAP: Plan: -CPAP as per home settings (6) Obesity: Plan: -BMI 36.4, elevates his risk of complications with covid-19. (7) Anxiety: Plan: Improved with Ativan and less aggressive weaning of his oxygen supplementation. (8) DVT prophylaxis: Plan: SQ Full dose Lovenox Conditional Code-no intubation, CPR and noninvasive ventilation ok as needed Dispo-cont PCU. ROS-No Headache, No Visual Changes, No Nausea, No Vomiting, No Fever, No Chills, No Neck Pain or Stiffness, No Chest Pain, No Palpitations, +SOB, +SMITH, +Cough, No Sputum, No Wheezing, No Abdominal Pain, No Diarrhea, No Hematemesis, No Hemoptysis, No Unexpected Weight Loss, No Flank pain, No Melena, No Hematochezia, No Frequency, No Urgency, No Burning, No Hematuria, No Rashes, No Diaphoresis. Appetite is down, Feels about the same. Physical Exam Gen-AAO x 3, Mod resp Distress, febrile, Tachycardic and Tachypneic. Head-NCAT, EOMI, PERRLA, Anicteric Sclera, No Posterior Pharyngeal Erythema Neck-Supple, No JVD, No Thyromegaly, No Masses, No LAD, No Bruits Lungs-Clear to Auscultation Bilaterally, No Rales, No Rhonchi, No Wheezing, No Crepitus Chest-No S4, +S1, +S2, No S3, No Murmurs, No Rubs, No Gallops, No Ectopy Abdomen-Soft, Bowel Sounds Present, Non Tender, Non Distended, No Hepatomegaly, No Splenomegaly, No Palpable Masses, No Rebound, No Rigidity, No Guarding Musculoskeletal-Full Range of Motion Bilaterally, No CVAT Extremities-No Cyanosis, No Clubbing, No Edema Nuero-Cranial Nerves II-XII grossly intact, Motor WNL, DTRs WNL, Strength WNL, Non Focal Psych-Normal Mood Admission and Anticipated Discharge Date Admission Date: April 16, 2021 Subjective 51-year-old man presented for evaluation of worsening shortness of breath. Reports a positive home test on April 06 for COVID-19 with symptoms beginning that day. Patient is unvaccinated and was started by primary care doctor on 04/14 with a prednisone taper and albuterol inhaler. Presented with fever diaphoresis and hypoxia. In the ER he was requiring 15 L oxygen mask to maintain appropriate oxygen saturation. Escalated to hi flow oxygen supplementation with cytokine storm. Baricitinib added. Anxious and feels short of breath Worsening anxiety with weaning, which improved when RT put him back on original settings Asked to hold off on any further weaning, elevated WBC, persistently elevated CRP. ID consult placed Results & Data Results & Data ([facility]) Vital Signs (Past 12 Hours) Vital Signs Temp Pulse Pulse Pulse Resp BP BP 04/24/21 11:34 36.7 C 130 H 26 H 130/75 04/24/21 11:13 119 H 26 H 04/24/21 10:56 120 H 04/24/21 09:52 04/24/21 07:18 123 H 38 H 04/24/21 07:07 38.4 C H 130 H 30 H 114/79 04/24/21 04:31 37.2 C 87 38 H 146/76 H 04/24/21 04:24 94 H 35 H 04/24/21 00:50 80 28 H Pulse Ox 04/24/21 11:34 86 L 04/24/21 11:13 90 04/24/21 10:56 04/24/21 09:52 91 04/24/21 07:18 89 L 04/24/21 07:07 86 L 04/24/21 04:31 79 L 04/24/21 04:24 75 L 04/24/21 00:50 85 L
--- NOTE | 2021-04-24 12:38 | Pharmacy Report ---
Pharmacy Glycemic Short Note 2 - Date of Service April 24, 2021 - Glycemic Short BSG Results (Last 24 hours): 04/23/21 04/23/21 04/24/21 16:08 19:28 00:55 Glucose 51 L* POC Glucose 83 101 H 04/24/21 04/24/21 04/24/21 02:12 07:34 11:32 Glucose POC Glucose 124 H 124 H 176 H OUTPATIENT ANTIDIABETIC REGIMEN: * Metformin 1000 mg PO BID * Dulaglutide 3 mg SQ weekly on Thu * A1c: 9.2% (04/17/21) ASSESSMENT: 04/24 * Worsening resp distress noted overnight. Patient decompensated despite proning. Hospitalist notified, IV dexamethasone admin early. * Pt noted to be hypoglycemic overnight. BSGs recovered following IV D50. Not tolerating PO with breakfast this AM. * Withheld AM NPH due to recent hypo as well as poor PO and anticipated poor PO today. Will give reduced NPH dose this afternoon as BSGs climbing again. Will reeval NPH needs tomorrow AM. * Continue "severe" stress Novolog doses however decrease correctional insulin doses given HS and overnight 04/21: * Blood sugars continue to trend up with steroid throughout the day and then drop overnight * Tighten CF/CR AC and increase NPH to cover steroid effects * Loosen HS, and DC Lantus to prevent AM hypoglycemia 04/19: * Fasting improved with addition of 10 units of lantus, will continue scale for PM tonight * Continued same NPH dose (0.4 unit/kg adjbw) with dexamethasone and tightedn carb ratio, lunch BSG improved continue to monitor for additional changes PLAN FOR INPATIENT GLYCEMIC CONTROL: * Hold outpatient oral diabetes medications * Basal insulin * NPH 25 units SQ x 1 this afternoon, reduce ongoing order to 35 units Q AM w/ IV dexamethasone * Bolus insulin * NovoLog per scale ACHS and at 0200 to screen for overnight hypo- * Goal Range: Low 110 mg/dL - High 140 mg/dL * Correction Factor: 10 mg/dL/unit AC, 25 mg/dL/unit HS (only correct overnight if BSG > 180) * Nutritional / Prandial insulin per carb ratio of 1 unit per 2.5 grams CHO consumed AC, 1 unit per 12 grams CHO consumed HS PLAN FOR DISCHARGE: * HbA1c: 9.2% suggests poor outpatient glycemic control * Reasonable to continue metformin and Trulicity at discharge if no contraindications * Consider addition of second oral agent that would minimize weight gain/promote weight loss, such as SGLT2 inhibitor * Initial dosing of empagliflozin would be 10 mg PO daily * Alternatively, if patient agreeable to insulin, could consider once daily basal insulin (although, concern for insulin-induced weight gain)
[2021-04-24] MEDS ORDERED: REMDESIVIR 200 MG in SODIUM CHLORIDE 0.9% 210 ML IV STA (12:44)
[2021-04-24] MEDS: ENOXAPARIN INJ 120 MG/0.8 ML SYR SQ SCH (13:56)
[2021-04-24] MEDS ORDERED: KETAMINE HCL INJ 50 MG/ML 10 ML VIAL IV ONE (17:00)
[2021-04-24] MEDS ORDERED: MIDAZOLAM HCL 5 MG/ML VIAL IV ONE (17:00)
[2021-04-24] MEDS ORDERED: ROCURONIUM BROMIDE 10 MG/ML 5 ML VIAL IV ONE (17:00)
[2021-04-24] MEDS ORDERED: fentaNYL citrate 100 MCG/2 ML VIAL IV ONE (17:00)
[2021-04-24] MEDS ORDERED: SUCCINYLCHOLINE CHLORIDE 20 MG/ML 10 ML VIAL IV ONE (17:00)
[2021-04-24] MEDS ORDERED: PROPOFOL BOLUS FROM BAG IV PRN (17:33)
[2021-04-24] MEDS ORDERED: ROCURONIUM BROMIDE 10 MG/ML 5 ML VIAL IV PRN (17:33)
[2021-04-24] MEDS ORDERED: STAT IV Infusion **Titration per Protocol STA ×3 (17:33→19:06)
[2021-04-24] MEDS ORDERED: PEPTAMEN INTENSE VHP 1.0 CAL 1,000 ML BAG OG SCH (17:45)
[2021-04-24] MEDS ORDERED: RAPID SEQUENCE INDUCTION BAG ONE (17:53)
--- NOTE | 2021-04-24 18:18 | Critical Care Consultation ---
Date of Consultation April 24, 2021 Assessment & Plan (1) Anxiety: (2) Acute respiratory failure with hypoxia: (3) HTN (hypertension): (4) DM type 2 (diabetes mellitus, type 2): (5) Pneumonia due to 2019 novel coronavirus: Reason Critically Ill: 51-year-old male unvaccinated male with a PMHx significant for DMII, HTN, obesity, GERD who presented with shortness of breath and was admitted for COVID pneumonia. Intubated 04/24/21. Neuro CAM ICU: UNABLE TO ASSESS Sedation: Propofol Analgesia: Fentanyl Sedated for intubation. Cardiac HTN- continue Norvasc. Hydralazine IV prn for SBP > 180, DBP > 95. He has been consistently tachycardic. Respiratory Hypoxic respiratory failure due to COVID19 Pneumonia - Hypoxic despite trials of high-flow and BiPAP, CXR today with unchanged multifocal airspace consolidation - Intubated 04/24/21 -- per and patient they agree to trying a total of 10 days on mechanical ventilation and if he is not able to be extubated in that timeframe they would like to move to comfort measures - Dexamethasone 6mg daily for 10 days total (day #9) - Daily CXR GI NPO Pantoprazole daily Start tube feeding Bowel regimen with Sennokot daily Renal/Electrolytes No significant electrolyte derangement. Replace lytes as needed. SHIRLEY Montes in place Endo ICU hyperglycemia protocol Heme Stable H&H. Monitor ID As above, COVID19 pneumonia on dexamethasone. Started on empiric ceftriaxone on 04/17/21 for presumed bacterial pneumonia. BCx with no growth. Procal negative x3 (last checked 04/19/21), CRP 28 today. Sputum culture today per ID. Will order repeat procal today and stop abx if negative. Lines/IV Access - PIVs intact. DVT Prophylaxis Fully anticoagulated with Lovenox Thank you for allowing us to be part of this patient's care. Please refer to Dr. Abrams's documentation for any further recommendations. History of Present Illness Attending Physician: Francisco Barajas DO History of Present Illness Adolfo Ferguson is an unvaccinated 51-year-old with PMH ofDMII, HTN, obesity, GERD who was admitted to [facility] for COVID-19 pneumonia. Symptoms began on 04/06/21, at which point he tested positive with home test. Seen by his PCP on 04/14 and started on prednisone taper and albuterol inhaler but ultimately did not respond to said treatment. He was admitted for COVID pneumonia on 04/16/21. Received dexamethasone 10mg IV on that date and then started on 6mg daily. Started on baricitinib 4mg daily on 04/17/21. Remdesivir 200mg given 04/24/21, and ordered for 100mg daily thereafter. He continued to have worsening hypoxic respiratory failure despite being on BiPAP. Initially patient was adamant that he did not want to be intubated. However, discussed with him and they agreed to trialing up to 10 days of mechanical ventilation at which point they would want to move to comfort measures. He was intubated the evening of 04/24/21. Allergies Allergy/AdvReac Type Severity Reaction Status Date / Time methylparaben Allergy Mild ITCHING Unverified 04/16/21 14:03 oxymorphone Allergy Mild ITCHING Unverified 04/16/21 14:03 Home Medications Medication Instructions Recorded Confirmed Type metformin 1,000 mg tablet 1,000 mg PO BIDWMEAL #0 tab 05/04/12 04/16/21 History acetaminophen 650 mg tablet 650 mg PO Q4H PRN #0 tab 10/22/12 04/16/21 History albuterol sulfate 90 mcg/actuation 2 puff INHALATION Q4H PRN 04/16/21 04/16/21 History aerosol inhaler dulaglutide 3 mg/0.5 mL 3 mg SUBCUT WK 04/16/21 04/16/21 History subcutaneous pen injector (Trulicity) hydrochlorothiazide 25 mg tablet 25 mg PO DAILY 04/16/21 04/16/21 History omeprazole 20 mg capsule,delayed 20 mg PO DAILY 04/16/21 04/16/21 History release prednisone 10 mg tablet 10 mg PO UD 04/16/21 04/16/21 History testosterone cypionate 200 mg/mL 200 mg IM UD 04/16/21 04/16/21 History intramuscular oil Patient History Medical History DM type 2 (diabetes mellitus, type 2) HTN (hypertension) Obesity FARANZ on CPAP Surgical History H/O laminectomy x 2 History of appendectomy Family History Father Diabetes Hypertension Social History Smoking Status: Never smoker Second Hand Exposure: No; Do You Dip or Chew Tobacco: No; Tobacco Cessation Education Requested by Patient: No Hx Alcohol Use: Yes Alcohol type: beer Alcohol Intake Frequency: Monthly or Less Hx Substance Use: No Preferred Language: Dutch Communication Ability: Effective Government Employee Required: No Beliefs That Will Affect Care: None Current Living Situation: Spouse Current Living Situation Comment: single story home with steps to enter Other Information That Helps Us Care for You: No Feels Safe at Home: Yes Safety Concerns: Feels Safe At This Time Assistive Devices: Oxygen - Continuous Review of Systems Review of Systems: Unobtainable due to endotracheal tube Physical Exam Physical Exam: GENERAL: Sedated, intubated. HEENT: PERRL, EOMI. Moist mucous membranes. CHEST/LUNGS: Diminished lung sounds. Mechanically ventilated. HEART: Tachycardic, regular rhythm. No m/g/r. ABDOMEN: NT/ND, soft. BS+ x4 EXTREMITIES: No cyanosis, no clubbing, no edema SKIN: Warm and dry. No rashes or lesions. NEUROLOGIC: Sedated and intubated. Difficult to assess. Results & Data Results & Data ([facility]) Vital Signs (Past 12 Hours) Vital Signs Temp Pulse Pulse Pulse Resp BP BP 04/24/21 15:56 113/78 04/24/21 15:37 122 H 24 04/24/21 15:14 37.3 C 121 H 26 H 88/73 L 04/24/21 13:55 37.4 C 04/24/21 11:34 36.7 C 130 H 26 H 130/75 04/24/21 11:13 119 H 26 H 04/24/21 10:56 120 H 04/24/21 09:52 04/24/21 07:18 123 H 38 H 04/24/21 07:07 38.4 C H 130 H 30 H 114/79 Pulse Ox 04/24/21 15:56 04/24/21 15:37 90 04/24/21 15:14 92 04/24/21 13:55 04/24/21 11:34 86 L 04/24/21 11:13 90 04/24/21 10:56 04/24/21 09:52 91 04/24/21 07:18 89 L 04/24/21 07:07 86 L Critical Care Results & Data Vital Signs (Past 12 Hours) Vital Signs Temp Pulse Pulse Pulse Resp BP BP 04/24/21 15:56 113/78 04/24/21 15:37 122 H 24 04/24/21 15:14 37.3 C 121 H 26 H 88/73 L 04/24/21 13:55 37.4 C 04/24/21 11:34 36.7 C 130 H 26 H 130/75 04/24/21 11:13 119 H 26 H 04/24/21 10:56 120 H 04/24/21 09:52 04/24/21 07:18 123 H 38 H 04/24/21 07:07 38.4 C H 130 H 30 H 114/79 Pulse Ox 04/24/21 15:56 04/24/21 15:37 90 04/24/21 15:14 92 04/24/21 13:55 04/24/21 11:34 86 L 04/24/21 11:13 90 04/24/21 10:56 04/24/21 09:52 91 04/24/21 07:18 89 L 04/24/21 07:07 86 L Lab & Micro Results (Past 24 Hours) RBC 4.50 M/uL (4.7-6.1) L 04/24/21 WBC 19.54 K/uL (4.8-10.8) H 04/24/21 Hgb 13.7 g/dL (14.0-18.0) L 04/24/21 Hct 40.7 % (42-52) L 04/24/21 MCV 90.4 fL (80-100) 04/24/21 MCH 30.4 pg (25-34) 04/24/21 MCHC 33.7 g/dL (32-36) 04/24/21 RDW Standard Deviation 43.9 fL (36.4-46.3) 04/24/21 RDW Coefficient of Variation 13.3 % (11.5-14.5) 04/24/21 Plt Count 175 K/uL (130-400) 04/24/21 MPV 10.2 fL (7.4-10.4) 04/24/21 Neutrophils (%) (Auto) 90.3 % 04/24/21 Lymphocytes (%) (Auto) 3.9 % 04/24/21 Monocytes # (Auto) 0.50 K/uL (0.11-0.59) 04/24/21 Eosinophils # (Auto) 0.05 K/uL (0-0.5) 04/24/21 Immature Granulocyte % (Auto) 2.8 % 04/24/21 Neutrophils # (Auto) 17.65 K/uL (1.4-6.5) H 04/24/21 Lymphocytes # (Auto) 0.77 K/uL (1.2-3.4) L 04/24/21 Monocytes # (Auto) 0.50 K/uL (0.11-0.59) 04/24/21 Eosinophils # (Auto) 0.05 K/uL (0-0.5) 04/24/21 Basophils # (Auto) 0.02 K/uL (0-0.2) 04/24/21 Immature Granulocyte # (Auto) 0.55 K/uL (0.00-0.02) H 04/24/21 Na 135 mmol/L (136-145) L 04/24/21 K 3.8 mmol/L (3.5-5.1) 04/24/21 Cl 95 mmol/L (98-107) L 04/24/21 CO2 31 mmol/L (21-32) 04/24/21 Anion Gap 9 (3-11) 04/24/21 BUN 20 mg/dl (6-23) 04/24/21 Creatinine 0.83 mg/dl (0.6-1.4) 04/24/21 Estimated GFR ( Amer) 116.4 ml/min 04/24/21 Estimated GFR (Non-Af Amer) 100.5 ml/min 04/24/21 BUN/Creatinine Ratio 24.1 (10-20) H 04/24/21 Glu 51 mg/dl (70-99(Fasting)) L* 04/24/21 Ca 9.1 mg/dl (8.5-10.1) 04/24/21 Phosphorus Level 4.1 mg/dl (2.5-4.9) 04/24/21 Total Bilirubin 0.6 mg/dl (0.2-1.0) 04/24/21 AST 30 U/L (13-39) 04/24/21 ALT 28 U/L (7-52) 04/24/21 Alkaline Phosphatase 92 U/L (34-104) 04/24/21 TP 6.4 gm/dl (6.0-8.3) 04/24/21 Albumin 2.9 gm/dl (3.4-5.0) L 04/24/21 Globulin 3.5 gm/dl (2.5-4.0) 04/24/21 Albumin/Globulin Ratio 0.8 (0.9-2) L 04/24/21 Mg 2.1 mg/dl (1.7-2.4) 04/24/21 00:55 04/24/21 Calcium Level 9.1 mg/dl (8.5-10.1) 04/24/21 00:55 04/24/21 Arterial Blood pH 7.47 (7.35-7.45) H 04/24/21 01:09 04/24/21 Arterial Blood Partial Pressure CO2 38 mmHg (35-46) 04/24/21 01:09 04/24/21 Arterial Blood Partial Pressure O2 47 mmHg (80-95) L 04/24/21 01:09 04/24/21 Arterial Blood HCO3 28 mmol/L (19-24) H 04/24/21 01:09 04/24/21 Arterial Blood Base Excess 3.9 mEq/L (-9-1.8) H 04/24/21 01:09 04/24/21 Arterial Blood Oxygen Saturation 83.3 % (90-95) L 04/24/21 01:09 04/24/21 Blood Gas Oxygen Given 100% FiO2 04/24/21 01:09 04/24/21 Monty Test Pos (Pos) 04/24/21 01:09 04/24/21 Diagnostic Findings (Past 24 Hours) Chest X-Ray 04/24/21 00:39 SINGLE VIEW CHEST CLINICAL HISTORY: Hypoxia. Covid pneumonia. FINDINGS: An AP, portable, upright chest radiograph is compared to study dated 04/22/2021. Correlation is made with chest CT dated 05/11/2010. The examination is degraded by portable technique and patient rotation. The cardiomediastinal silhouette is unremarkable. Extensive/multifocal airspace consolidation has not appreciably changed as compared to 04/22/2021. No large pleural effusion or pneumothorax is seen. The bony thorax is grossly intact. IMPRESSION: Multifocal airspace consolidation has not appreciably changed as c ompared to 04/22/2021. ACT 112: Negative or not required by law. Electronically signed by: Brady Cam M.D. 04/24/2021 7:53 AM I & O Totals 24 Hours 04/23/21 04/24/21 04/25/21 06:59 06:59 06:59 Intake Total 2024 2720 / 2720 1090 / 1090 Output Total 2450 / 2450 3575 / 3575 825 / 825 Balance -425 / -425 -855 / -855 265 / 265 Cumulative 04/16/21 11:11 thru 04/24/21 17:14 Intake Total 70389 Output Total 25172 Balance -3386 RT Ventilator Mngmt (Last Documented) Ventilator Ordered Settings Respiratory Rate 24 04/24/21 15:37 Fraction of Inspired Oxygen 100 04/24/21 15:37 Ventilator - PT Measurements Respiratory Rate 24
[2021-04-24] MEDS ORDERED: MIDAZOLAM HCL 125MG/250ML D5W ONE (18:19)
--- NOTE | 2021-04-24 18:40 | Procedure Note ---
Procedure Note Date of Service April 24, 2021 Note procedure Date: Noted above Procedure: Endotracheal intubation Pre-procedure Diagnosis: Acute hypoxic respiratory failure secondary to COVID-19 pneumonia Post-procedure Diagnosis: same as above Prior to Procedure: Informed Consent: Risks and benefits were discussed and verbal informed consent was obtained secondary to patient being in the COVID unit Attending Staff: Jen Abrams DO The identity of the patient was confirmed and a bedside time out was performed. Description of Procedure: Patient was evaluated and required intubation for impending respiratory failure. The patient was prepared in the usual fashion. A video laryngoscope was used. A 8.0 mm inner diameter endotrachial tube was placed endotracheally to 26 cm at the teeth. A grade 1 view was obtained. The endotracheal tube was noted to pass through the vocal cords. Chest rise was bilateral. Bilateral breath sounds were heard without air sounds in the abdomen. Mist was noted in the endotracheal tube. End-tidal CO2 measurement was positive. Chest x-ray shows proper endotracheal tube placement. Complications: Period of desaturation into the 70s Findings: Not applicable Specimens: Not applicable Estimated blood loss: Zero Coding CPT Codes Resuscitation - Resuscitation: 05227 Endotracheal Intubation, emergency ([id number]) [facility] Procedure Codes (Charges) Resuscitation Resuscitation: 32040 Endotracheal Intubation, emergency
--- NOTE | 2021-04-24 18:43 | Procedure Note ---
Procedure Note Date of Service April 24, 2021 Note Procedure date: Noted above Procedure: Central venous access Pre-procedure indication: Need for vasoactive medication administration Post-procedure Diagnosis: same as above Prior to Procedure: Informed Consent: The risks, benefits, indications, potential complications, and alternatives were explained to the patient and verbal informed consent obtained. Attending Staff: Jen Abrams DO Resident/APC: Not applicable Skin Prep: Chlorhexidine Anesthesia: 4 mL 1% lidocaine without epinephrine The identity of the patient was confirmed and a bedside time out was performed. Description of Procedure: After sterile prep and sterile drape utilizing standard sterile technique the superficial skin of the right subclavian area was anesthetized. The target vessel was identified and entered with an 18-gauge needle. Dark venous blood return was noted. A guidewire was inserted through the needle and into the vessel. The needle was withdrawn and a skin murphy was made. A tissue dilator was advanced via Seldinger technique and removed. A triple lumen catheter was inserted via Seldinger technique and the guidewire removed. All ports landen and flushed easily. A Biopatch was placed, and the catheter was secured via silk suture. A sterile dressing was then applied. Complications: None Estimated blood loss: Trace Patient tolerated the procedure well. Coding CPT Codes Tubes, Drains, and Vasc Access - Tubes, Drains, and Vasc Access: [id number] Insertion Of Non-tunneled Catheter Age 3 Yrs> ([id number]) [facility] [place] Codes (Charges) Tubes, Drains, and Vasc Access Procedure 1: Tubes, Drains, and Vasc Access: [id number] Insertion Of Non-tunneled Catheter Age 3 Yrs>
--- NOTE | 2021-04-24 18:44 | Procedure Note ---
Procedure Note Date of Service April 24, 2021 Note Procedure date: Noted above Procedure: Radial artery cannulation Pre-procedure Diagnosis: Need for invasive monitoring, frequent blood draws Post-procedure Diagnosis: same as above Prior to Procedure: Informed Consent: The risks, benefits, indications, potential complications, and alternatives were explained to the patient and verbal informed consent obtained. Attending Staff: Jen Abrams DO Skin Prep: Chlorhexidine Anesthesia: 3 mL 1% lidocaine without epinephrine The identity of the patient was confirmed and a bedside time out was performed. Description of Procedure: After sterile prep and sterile drape utilizing grupo poe sterile technique the superficial skin of the right radial artery was anesthetized. The target artery was identified via dynamic ultrasound guidance and entered with a 20-gauge arrow Angiocath. Pulsatile bright red blood return was noted. Via modified Seldinger technique the self-contained guidewire was advanced and the Angiocath advanced over the guidewire. The guidewire was removed and brisk arterial blood return was noted. The pressure monitor was connected, and the arterial line was secured via silk suture. A sterile dressing was then applied. Complications: None Estimated blood loss: Trace Patient tolerated the procedure well. Coding CPT Codes Tubes, Drains, and Vasc Access - Tubes, Drains, and Vasc Access: [id number] Insertion Catheter, Artery ([id number]) [facility] [place] Codes (Charges) Tubes, Drains, and Vasc Access Procedure 1: Tubes, Drains, and Vasc Access: [id number] Insertion Catheter, Artery
--- NOTE | 2021-04-24 18:46 | Critical Care Consultation ---
Date of Consultation April 24, 2021 Assessment & Plan (1) Acute respiratory failure with hypoxia: (2) Pneumonia due to 2019 novel coronavirus: Reason Critically Ill: Acute hypoxic respiratory failure secondary to COVID-19 pneumonia PLAN: Neuro: Sedation: Propofol and Versed Analgesia: Fentanyl Intermittent neuromuscular blockade: Rocuronium -Discussion with patient he would not want prolonged sedation nor prolonged mechanical ventilation we will proceed with tracheostomy in next 24 to 48 hours if no significant improvement Resp: Acute hypoxic respiratory failure -Intubation mechanical ventilation. After extensive discussion patient would opt for tracheostomy as opposed to 7 to 10 days of mechanical ventilation. -Do believe this is reasonable and the patient would likely not improve during that timeframe -Initiate pronation and intermittent neuromuscular blockade CV: Hypotension -Amlodipine 5 mg daily Fluids/Renal: Electrolyte protocol ID: Finish course of Rocephin -Baricitinib discontinued GI/Nutrition: OG to be placed -Start Peptamen, 10 mL continuous while on neuromuscular blockade and prone -Start bowel regimen Heme: DVT prophylaxis: Lovenox 120 mg SQ every 12 hours Endocrine: ICU hyperglycemia protocol Increase dexamethasone from 6 to 10 mg for total of 10 days Vascular access: Right subclavian central venous access, right radial art line Code Status: Full code Disposition: ICU (3) Obesity: (4) HTN (hypertension): (5) FARNAZ on CPAP: (6) DM type 2 (diabetes mellitus, type 2): (7) Anxiety: Supervising Physician Co-Signing Physician Notes I have personally spent 90 minutes of critical care time in the direct management of this patient. This is a life/limb threatening event. This includes time spent evaluating patient, direct bedside care, chart review, placing orders, interpretation of diagnostic studies, discussion with consultants, patient, and/or family members regarding treatment decisions, as well as other required patient management activities. This time is exclusive of all separately billable procedures, and teaching time and separate from and in addition to any other critical care service time. History of Present Illness Reason for Consultation: Acute hypoxic respiratory failure secondary to COVID-19 pneumonia Attending Physician: Francisco Barajas DO History of Present Illness Patient is a 51-year-old male with past medical history of hypertension, type 2 diabetes, obstructive sleep apnea with CPAP and obesity who presented on April 16 to [facility] emergency department with complaints of shortness of breath and was found to have acute hypoxic respiratory failure secondary to COVID-19 pneumonia. Was reported that he tested positive for COVID-19 at home test on 04/06 and that is the day that he reported his symptoms. The patient is unvaccinated. He was started on a prednisone taper and albuterol inhaler by his primary care provider on 04/14. Since then he has had increasing oxygen requirements. He is outside the window for remdesivir and was not administered. He was started on baricitinib on April 17, 2021, which has been discontinued. He finished a course for presumed bacterial pneumonia of ceftriaxone. There were frequent discussions about the patient's CODE STATUS and what he would want. During my evaluation the patient is able to speak in 3-4 word sentences he reports that he is unable to eat secondary to extreme fatigue and shortness of breath. He reports that he wants to live to see his 10-year-old daughter grow up we discussed various options including intubation mechanical ventilation for 10 days, tracheostomy, comfort care. And it was decided that we would proceed with mechanical ventilation for today and if the patient does not significantly improve we will proceed with tracheostomy tomorrow. Allergies Allergy/AdvReac Type Severity Reaction Status Date / Time methylparaben Allergy Mild ITCHING Unverified 04/16/21 14:03 oxymorphone Allergy Mild ITCHING Unverified 04/16/21 14:03 Home Medications Medication Instructions Recorded Confirmed Type metformin 1,000 mg tablet 1,000 mg PO BIDWMEAL #0 tab 05/04/12 04/16/21 History acetaminophen 650 mg tablet 650 mg PO Q4H PRN #0 tab 10/22/12 04/16/21 History albuterol sulfate 90 mcg/actuation 2 puff INHALATION Q4H PRN 04/16/21 04/16/21 History aerosol inhaler dulaglutide 3 mg/0.5 mL 3 mg SUBCUT WK 04/16/21 04/16/21 [facility] hydrochlorothiazide 25 mg tablet 25 mg PO DAILY 04/16/21 04/16/21 History omeprazole 20 mg capsule,delayed 20 mg PO DAILY 04/16/21 04/16/21 History release prednisone 10 mg tablet 10 mg PO UD 04/16/21 04/16/21 History testosterone cypionate 200 mg/mL 200 mg IM UD 04/16/21 04/16/21 History intramuscular oil Patient History Medical History DM type 2 (diabetes mellitus, type 2) HTN (hypertension) Obesity FARNAZ on CPAP Surgical History H/O laminectomy x 2 History of appendectomy Family History Father Diabetes Hypertension Social History Smoking Status: Never smoker Second Hand Exposure: No; Do You Dip or Chew Tobacco: No; Tobacco Cessation Education Requested by Patient: No Hx Alcohol Use: Yes Alcohol type: beer Alcohol Intake Frequency: Monthly or Less Hx Substance Use: No Preferred Language: Irish Communication Ability: Effective Demographer Required: No Beliefs That Will Affect Care: None Current Living Situation: Spouse Current Living Situation Comment: single story home with steps to enter Other Information That Helps Us Care for You: No Feels Safe at Home: Yes Safety Concerns: Feels Safe At This Time Assistive Devices: Oxygen - Continuous Review of Systems Review of Systems: Exertional dyspnea Physical Exam Physical Exam: General: Alert. nontoxic. Skin: Warm, dry, Head: Atraumatic Ears, nose, mouth and throat: airway patent, high flow nasal cannula present Cardiovascular: Normal peripheral perfusion, tachycardia Respiratory: no respiratory distress, tachypnea with accessory muscle use Gastrointestinal: Non distended Musculoskeletal: No deformity Results & Data Results & Data ([facility]) Vital Signs (Past 12 Hours) Vital Signs Temp Pulse Pulse Pulse Resp BP BP 04/24/21 17:34 107 H 32 H 04/24/21 15:56 113/78 04/24/21 15:37 122 H 24 04/24/21 15:14 37.3 C 121 H 26 H 88/73 L 04/24/21 13:55 37.4 C 04/24/21 11:34 36.7 C 130 H 26 H 130/75 04/24/21 11:13 119 H 26 H 04/24/21 10:56 120 H 04/24/21 09:52 04/24/21 07:18 123 H 38 H 04/24/21 07:07 38.4 C H 130 H 30 H 114/79 Pulse Ox 04/24/21 17:34 95 01/19/22 15:56 04/24/21 15:37 90 04/24/21 15:14 92 04/24/21 13:55 04/24/21 11:34 86 L 04/24/21 11:13 90 04/24/21 10:56 04/24/21 09:52 91 04/24/21 07:18 89 L 04/24/21 07:07 86 L Critical Care Results & Data Vital Signs (Past 12 Hours) Vital Signs Temp Pulse Pulse Pulse Resp BP BP 04/24/21 17:34 107 H 32 H 04/24/21 15:56 113/78 04/24/21 15:37 122 H 24 04/24/21 15:14 37.3 C 121 H 26 H 88/73 L 04/24/21 13:55 37.4 C 04/24/21 11:34 36.7 C 130 H 26 H 130/75 04/24/21 11:13 119 H 26 H 04/24/21 10:56 120 H 04/24/21 09:52 04/24/21 07:18 123 H 38 H 04/24/21 07:07 38.4 C H 130 H 30 H 114/79 Pulse Ox 04/24/21 17:34 95 04/24/21 15:56 04/24/21 15:37 90 04/24/21 15:14 92 04/24/21 13:55 04/24/21 11:34 86 L 04/24/21 11:13 90 04/24/21 10:56 04/24/21 09:52 91 04/24/21 07:18 89 L 04/24/21 07:07 86 L Lab & Micro Results (Past 24 Hours) RBC 4.50 M/uL (4.7-6.1) L 04/24/21 WBC 19.54 K/uL (4.8-10.8) H 04/24/21 Hgb 13.7 g/dL (14.0-18.0) L 04/24/21 Hct 40.7 % (42-52) L 04/24/21 MCV 90.4 fL (80-100) 04/24/21 MCH 30.4 pg (25-34) 04/24/21 MCHC 33.7 g/dL (32-36) 04/24/21 RDW Standard Deviation 43.9 fL (36.4-46.3) 04/24/21 RDW Coefficient of Variation 13.3 % (11.5-14.5) 04/24/21 Plt Count 175 K/uL (130-400) 04/24/21 MPV 10.2 fL (7.4-10.4) 04/24/21 Neutrophils (%) (Auto) 90.3 % 04/24/21 Lymphocytes (%) (Auto) 3.9 % 04/24/21 Monocytes # (Auto) 0.50 K/uL (0.11-0.59) 04/24/21 Eosinophils # (Auto) 0.05 K/uL (0-0.5) 04/24/21 Immature Granulocyte % (Auto) 2.8 % 04/24/21 Neutrophils # (Auto) 17.65 K/uL (1.4-6.5) H 04/24/21 Lymphocytes # (Auto) 0.77 K/uL (1.2-3.4) L 04/24/21 Monocytes # (Auto) 0.50 K/uL (0.11-0.59) 04/24/21 Eosinophils # (Auto) 0.05 K/uL (0-0.5) 04/24/21 Basophils # (Auto) 0.02 K/uL (0-0.2) 04/24/21 Immature Granulocyte # (Auto) 0.55 K/uL (0.00-0.02) H 04/24/21 Na 135 mmol/L (136-145) L 04/24/21 K 3.8 mmol/L (3.5-5.1) 04/24/21 Cl 95 mmol/L (98-107) L 04/24/21 CO2 31 mmol/L (21-32) 04/24/21 Anion Gap 9 (3-11) 04/24/21 BUN 20 mg/dl (6-23) 04/24/21 Creatinine 0.83 mg/dl (0.6-1.4) 04/24/21 Estimated GFR ( Amer) 116.4 ml/min 04/24/21 Estimated GFR (Non-Af Amer) 100.5 ml/min 04/24/21 BUN/Creatinine Ratio 24.1 (10-20) H 04/24/21 Glu 51 mg/dl (70-99(Fasting)) L* 04/24/21 Ca 9.1 mg/dl (8.5-10.1) 04/24/21 Phosphorus Level 4.1 mg/dl (2.5-4.9) 04/24/21 Total Bilirubin 0.6 mg/dl (0.2-1.0) 04/24/21 AST 30 U/L (13-39) 04/24/21 ALT 28 U/L (7-52) 04/24/21 Alkaline Phosphatase 92 U/L (34-104) 04/24/21 TP 6.4 gm/dl (6.0-8.3) 04/24/21 Albumin 2.9 gm/dl (3.4-5.0) L 04/24/21 Globulin 3.5 gm/dl (2.5-4.0) 04/24/21 Albumin/Globulin Ratio 0.8 (0.9-2) L 04/24/21 Mg 2.1 mg/dl (1.7-2.4) 04/24/21 00:55 04/24/21 Calcium Level 9.1 mg/dl (8.5-10.1) 04/24/21 00:55 04/24/21 Arterial Blood pH 7.47 (7.35-7.45) H 04/24/21 01:09 04/24/21 Arterial Blood Partial Pressure CO2 38 mmHg (35-46) 04/24/21 01:09 04/24/21 Arterial Blood Partial Pressure O2 47 mmHg (80-95) L 04/24/21 01:09 04/24/21 Arterial Blood HCO3 28 mmol/L (19-24) H 04/24/21 01:09 04/24/21 Arterial Blood Base Excess 3.9 mEq/L (-9-1.8) H 04/24/21 01:09 04/24/21 Arterial Blood Oxygen Saturation 83.3 % (90-95) L 04/24/21 01:09 04/24/21 Blood Gas Oxygen Given 100% FiO2 04/24/21 01:09 04/24/21 Monty Test Pos (Pos) 04/24/21 01:09 04/24/21 Diagnostic Findings (Past 24 Hours) Chest X-Ray 04/24/21 00:39 SINGLE VIEW CHEST CLINICAL HISTORY: Hypoxia. Covid pneumonia. FINDINGS: An AP, portable, upright chest radiograph is compared to study dated 04/22/2021. Correlation is made with chest CT dated 05/11/2010. The examination is degraded by portable technique and patient rotation. The cardiomediastinal silhouette is unremarkable. Extensive/multifocal airspace consolidation has not appreciably changed as compared to 04/22/2021. No large pleural effusion or pneumothorax is seen. The bony thorax is grossly intact. IMPRESSION: Multifocal airspace consolidation has not appreciably changed as compared to 04/22/2021. ACT 112: Negative or not required by law. Electronically signed by: Brady Cam M.D. 04/24/2021 7:53 AM I & O Totals 24 Hours 04/23/21 04/24/21 04/25/21 06:59 06:59 06:59 Intake Total 2024 2720 / 2720 1090 / 1090 Output Total 2450 / 2450 3575 / 3575 825 / 825 Balance -425 / -425 -855 / -855 265 / 265 Cumulative 04/16/21 11:11 thru 04/24/21 17:14 Intake Total 66293 Output Total 45660 Balance -3386 RT Ventilator Mngmt (Last Documented) Ventilator Ordered Settings Ventilator Support Mode Assist Control 04/24/21 17:34 Respiratory Rate 32 04/24/21 17:34 Ventilator Tidal Volume 460 04/24/21 17:34 Setting Minute Ventilation 14.3 04/24/21 17:34 Positive End Expiratory 20 04/24/21 17:34 Pressure Fraction of Inspired Oxygen 100 04/24/21 17:34 Ventilator - PT Measurements Respiratory Rate 32 Exhaled Tidal Volume 698 Minute Ventilation 14.3 Peak Inspiratory Airway 36 Pressure Plateau Pressure 26 Respiratory Cycle Inspiratory: 1:1.8 Expiratory Ratio Inspiratory Phase Time 0.7 Static Lung Compliance 116.33 Dynamic Lung Compliance 43.63 Normal Static Lung Compliance 48.00 Patient Measurements Comment Pt intubated by Dr. Abrams at this time. Vent settings per Dr. Abrams. Coding Level of Care Code Critical Care ea addt'l 30 min Diagnoses Acute respiratory failure with hypoxia J96.01 Obesity E66.9 HTN (hypertension) I10 FARNAZ on CPAP G47.33; Z99.89 DM type 2 (diabetes mellitus, type 2) E11.9 Pneumonia due to 2019 novel coronavirus U07.1; J12.82 Anxiety F41.9
[2021-04-24] MEDS ORDERED: MIDAZOLAM BOLUS FROM BAG IV PRN (18:55)
[2021-04-24] MEDS ORDERED: dexAMETHasone 4 MG in SYRINGE 0 ML IV ONE (18:58)
[2021-04-24] MEDS: propofoL 1,000 MG/100 ML VIAL IV SCH ×2 (19:00→20:59)
[2021-04-24] MEDS: MIDAZOLAM HCL 125 MG/250 ML BAG IV SCH (19:00)
[2021-04-24] MEDS ORDERED: STAT IV STA (19:06)
[2021-04-24] MEDS ORDERED: VECURONIUM BROMIDE 10 MG VIAL IV STA (19:06)
[2021-04-24] MEDS ORDERED: VECURONIUM BROMIDE 10 MG VIAL IV ONE (19:07)
--- NOTE | 2021-04-24 19:39 | XRay Report ---
XR chest 1V portable at 6:59 PM CLINICAL HISTORY: Status post intubation and line placement. Evaluate for positioning of pneumothora x. COMPARISON STUDY: Portable chest from 04/24/2021 at 1:31 AM TECHNIQUE: 1 view of the chest FINDINGS: Single frontal view of the chest demonstrates the cardiomediastinal silhouette to be within normal li mits. There has been interval placement of an endotracheal tube with its tip approximately 4.3 cm abo ve the evelyn. Right subclavian catheter is also been placed with its tip extending into the right at rium. There is no evidence for pneumothorax. Diffuse interstitial and alveolar opacities are again seen bilaterally characteristic of a viral type pneumonitis and Covid 19 pneumonia. There is no evidence for pleural effusion. There is no evidence for vascular congestion. There is no acute osseous pathology. IMPRESSION: Tubes and catheters are in anatomic position with no evidence for pneumothorax. Diffuse i nterstitial and alveolar opacities are again seen bilaterally and unchanged. ACT 112: Negative or not required by law. Electronically signed by: Valdo Marina M.D. 04/24/2021 7:37 PM
[2021-04-24] MEDS: CISATRACURIUM BESYLATE 40 MG in DEXTROSE 5% 80 ML IV SCH (20:17)
[2021-04-24] MEDS: fentaNYL citrate 2,500 MCG/250 ML BAG IV SCH (20:29)
[2021-04-24] MEDS: cefTRIAXone SODIUM 2,000 MG in DEXTROSE 5% 50 ML IV SCH (22:47)
[2021-04-24] MEDS: ARTIFICIAL TEARS OP OINT 3.5 GM TUBE OP SCH ×2 (23:25→23:53)
[2021-04-25] MEDS: INSULIN ASPART PER UNIT SC SCH ×6 (00:44→20:38)
[2021-04-25] MEDS ORDERED: NOREPINEPHRINE/D5W 8 MG/508 ML IV ONE (01:22)
[2021-04-25] MEDS: ENOXAPARIN INJ 120 MG/0.8 ML SYR SQ SCH (01:23)
[2021-04-25] MEDS ORDERED: STAT IV Infusion **Titration per Protocol STA ×2 (01:30→10:56)
[2021-04-25] MEDS: NOREPINEPHRINE/D5W 8 MG/508 ML BAG IV SCH ×2 (01:35→18:28)
[2021-04-25] MEDS ORDERED: INSULIN ASPART PER UNIT SC SCH ×2 (02:00→11:30)
[2021-04-25] MEDS: propofoL 1,000 MG/100 ML VIAL IV SCH ×4 (02:50→21:36)
[2021-04-25] MEDS: CISATRACURIUM BESYLATE 40 MG in DEXTROSE 5% 80 ML IV SCH ×6 (03:16→21:29)
[2021-04-25 04:13] LABS: iSTAT Art Bld Gas pCO2 Correct 93 mmHg (35-46); iSTAT Art Bld Gas pH Corrected 7.172 (7.35-7.45); iSTAT Arterial Blood Gas HCO3 34 meg/L (19-24); iSTAT Arterial Blood Gas pCO2 89 mmHg (35-46); iSTAT Arterial Blood Gas pH 7.18 (7.35-7.45); iSTAT Arterial Blood Gas pO2 88 mmHg (80-95); iSTAT Arterial Blood Gas pO2 C 92; iSTAT Carbon Dioxide 36 mmol/L (24-31); iSTAT Hematocrit 46 % (42-52); iSTAT Hemoglobin 15.6 g/dl (14.0-18.0); iSTAT Potassium 4.4 mmol/L (3.3-5.0); iSTAT Site Art Line; iSTAT Sodium 133 mmol/L (135-144)
[2021-04-25] MEDS: ARTIFICIAL TEARS OP OINT 3.5 GM TUBE OP SCH ×5 (04:49→18:02)
[2021-04-25 04:56] LABS: iSTAT Art Bld Gas pCO2 Correct 91 mmHg (35-46); iSTAT Art Bld Gas pH Corrected 7.162 (7.35-7.45); iSTAT Arterial Blood Gas HCO3 33 meg/L (19-24); iSTAT Arterial Blood Gas pCO2 91 mmHg (35-46); iSTAT Arterial Blood Gas pH 7.16 (7.35-7.45); iSTAT Arterial Blood Gas pO2 100 mmHg (80-95); iSTAT Arterial Blood Gas pO2 C 101; iSTAT Carbon Dioxide 35 mmol/L (24-31); iSTAT Hematocrit 44 % (42-52); iSTAT Potassium 6.1 mmol/L (3.3-5.0); iSTAT Site Art Line; iSTAT Sodium 132 mmol/L (135-144)
[2021-04-25 05:37] LABS: iSTAT Art Bld Gas pCO2 Correct 79 mmHg (35-46); iSTAT Art Bld Gas pH Corrected 7.197 (7.35-7.45); iSTAT Arterial Blood Gas HCO3 31 meg/L (19-24); iSTAT Arterial Blood Gas pCO2 78 mmHg (35-46); iSTAT Arterial Blood Gas pO2 69 mmHg (80-95); iSTAT Arterial Blood Gas pO2 C 71; iSTAT Carbon Dioxide 33 mmol/L (24-31); iSTAT Hematocrit 43 % (42-52); iSTAT Hemoglobin 14.6 g/dl (14.0-18.0); iSTAT Potassium 6.2 mmol/L (3.3-5.0); iSTAT Site Art Line; iSTAT Sodium 131 mmol/L (135-144)
[2021-04-25] MEDS ORDERED: ICU ELECTROLYTE REPLACEMENT PROTOCOL SCH (06:00)
[2021-04-25 06:53] LABS: Albumin Globulin Ratio 0.7 (0.9-2); Albumin Level 2.8 gm/dl (3.4-5.0); BUN Creatinine Ratio 25.3 (10-20); Bilirubin,Total 0.7 mg/dl (0.2-1.0); Calcium 8.7 mg/dl (8.5-10.1); Creatinine Clr Calc Pharmacy 73.8 ml/min; Est GFR (African American) 60.7 ml/min; Est GFR (Non-African American) 52.4 ml/min; Globulin 3.8 gm/dl (2.5-4.0); Magnesium 2.5 mg/dl (1.7-2.4); Potassium 6.2 mmol/L (3.5-5.1); Total Protein 6.6 gm/dl (6.0-8.3)
[2021-04-25 07:15] LABS: Hematocrit (blood only) 43.8 % (42-52); Mean Corpuscular Hemoglobin 30.4 pg (25-34); Mean Platelet Volume 10.6 fL (7.4-10.4); Platelet Count 240 K/uL (130-400); RDW Coefficient of Variation 13.7 % (11.5-14.5); RDW Standard Deviation 47.6 fL (36.4-46.3); Red Blood Count 4.61 M/uL (4.7-6.1); White Blood Count 34.12 K/uL (4.8-10.8)
[2021-04-25 07:16] LABS: Basophils % (auto) 0.3 %; Eosinophils # (auto) 0.01 K/uL (0-0.5); Immature Granulocytes # (auto) 1.34 K/uL (0.00-0.02); Immature Granulocytes % (auto) 3.9 %; Lymphocytes # (auto) 0.64 K/uL (1.2-3.4); Lymphocytes % (auto) 1.9 %; Monocytes # (auto) 0.85 K/uL (0.11-0.59); Monocytes % (auto) 2.5 %; Neutrophils # (auto) 31.18 K/uL (1.4-6.5); Neutrophils % (auto) 91.4 %
--- NOTE | 2021-04-25 07:16 | Critical Care Progress Note ---
Date of Service April 25, 2021 Assessment & Plan (1) Anxiety: (2) Acute respiratory failure with hypoxia: (3) HTN (hypertension): (4) DM type 2 (diabetes mellitus, type 2): (5) Pneumonia due to 2019 novel coronavirus: (6) DVT prophylaxis: Plan: Reason Critically Ill: Acute hypoxic respiratory failure secondary to COVID-19 pneumonia PLAN: Neuro: Sedation: Propofol and Versed Analgesia: Fentanyl Intermittent neuromuscular blockade: Rocuronium -Discussion with patient he would not want prolonged sedation nor prolonged mechanical ventilation. Plan for possible trach. However, patient has DVTs on BLE Doppler so will hold off. Resp: Acute hypoxic respiratory failure -Intubation mechanical ventilation. After extensive discussion patient would opt for tracheostomy as opposed to 7 to 10 days of mechanical ventilation. -Do believe this is reasonable and the patient would likely not improve during that timeframe -Hold off on trach as pt has DVTs on Doppler and will start heparin gtt CV: Hypotensionm -Hold amlodipine - On levophed gtt -- suspect may improve as sedation decreased Fluids/Renal: Electrolyte protocol Hyperkalemia -- BMP q6h, insulin gtt Discuss possibility of dialysis once patient more alert with creatinine uptrending ID: DC remdesivir as pt out of window and has worsening renal function Finished course of Rocephin Febrile over 24h -- Blood and fungal cultures ordered, check lactate GI/Nutrition: OG in place -- continue trickle feeds but switch to renal formula NSS 500mL + Albumin 25% 50g IV today Alk phos elevated -- check lipase Heme: DVT prophylaxis: Heparin gtt Start heparin gtt with DVTs seen on BLE Doppler Endocrine: ICU hyperglycemia protocol Increase dexamethasone from 6 to 10 mg for total of 10 days Start insulin gtt with elevated BSG and hyperkalemia Vascular access: Right subclavian central venous access, right radial art line Code Status: Full code Disposition: ICU Admission and Anticipated Discharge Date Admission Date: April 16, 2021 Supervising Physician Co-Signing Physician Notes Dr. Flores was resident physician during care of patient. I separately evaluated patient for gallagher portions of the history and the exam. I was present during the critical portion of medical decision making, and I discussed the case with the resident. I generally agree with the findings and plan. Gentle volume expansion with 500 mL of saline and 50 g albumin for acute kidney injury, will check BMPs every 6, 30 mL lactulose today hopefully will also help with elevated potassium. No discontinue remdesivir as he is definitively outside the window and has poor renal function. I will talk with the patient's regarding possibility of dialysis. We will also rediscuss tracheostomy which the patient wanted within 24 hours of intubation. I strongly believe that the patient would not be a candidate for successful extubation within the 14-day window and believe the risk-benefit ratio of early tracheostomy and minimizing sedation is greater than the risk of continuing prolonged sedation. No strong indication for therapeutic anticoagulation will decrease to 7500 3 times daily add surveillance venous duplex. Febrile x24 hours we will add blood cultures and fungal blood culture. Convert from Peptamen to nova source for increased K, continue at trickle blood culture fungal culture, patient's blood cultures have remained negative sputum culture was also negative. Patient was placed on empiric Rocephin for possible superimposed bacterial infection will continue for 7 days. Checking lactate and lipase. Ideally tracheostomy could be postponed due to being febrile however the patient has been on appropriate antibiotic coverage and certainly COVID can cause fevers. Patient was very adamant about short-term sedation and I will discuss this with the and feel comfortable proceeding should she agree with early tracheostomy to be in accordance with patient's wishes. Patient was discussed on multidisciplinary rounds Subjective No acute events overnight. Patient proned on evaluation. Sedated and intubated. Review of Systems Review of Systems: Unobtainable due to endotracheal tube Physical Exam Physical Exam: GENERALSedated, intubated CHEST/LUNGS: CTAB A/P. No crackles, wheezes, rales, rhonchi. Decreased air movement bilaterally. HEART: Tachycardic, regular rhythm. No m/g/r. EXTREMITIES: No cyanosis, no clubbing, no edema SKIN: Warm and dry. No rashes or lesions. NEUROLOGIC: Unable to assess due to intubation/sedation Results & Data Results & Data ([facility]) Vital Signs (Past 12 Hours) Vital Signs Temp Pulse Resp BP Pulse Ox 04/25/21 06:30 37.6 C H 116 H 32 H 109/73 94 04/25/21 06:15 37.5 C 117 H 32 H 106/76 04/25/21 06:00 37.5 C 116 H 32 H 99/76 L 04/25/21 05:45 37.4 C 116 H 32 H 107/75 04/25/21 05:30 37.3 C 115 H 32 H 106/73 04/25/21 05:15 37.3 C 114 H 32 H 95/79 L 04/25/21 05:00 37.2 C 114 H 32 H 106/71 04/25/21 04:45 37.2 C 115 H 32 H 111/76 04/25/21 04:30 37.1 C 115 H 28 H 111/72 04/25/21 04:25 32 H 04/25/21 04:15 37.1 C 114 H 24 107/78 96 04/25/21 04:00 37.0 C 113 H 24 113/78 96 04/25/21 03:45 37.0 C 112 H 24 114/74 96 04/25/21 03:34 112 H 24 92 04/25/21 03:30 36.9 C 102 H 24 105/78 98 04/25/21 03:15 36.9 C 109 H 24 103/74 93 04/25/21 03:00 36.9 C 108 H 21 97/67 L 95 04/25/21 02:45 36.9 C 112 H 24 96/69 L 92 04/25/21 02:30 36.8 C 114 H 24 94/70 L 91 04/25/21 02:15 36.8 C 113 H 24 95/73 L 91 04/25/21 02:00 36.7 C 113 H 21 96/71 L 91 04/25/21 01:45 36.7 C 113 H 24 94/70 L 91 04/25/21 01:30 36.7 C 112 H 24 91/65 L 90 04/25/21 01:15 36.7 C 116 H 24 88/71 L 90 04/25/21 01:00 36.7 C 113 H 24 91/68 L 90 04/25/21 00:45 36.7 C 114 H 24 98/72 L 91 04/25/21 00:30 36.7 C 115 H 24 90 04/25/21 00:15 36.8 C 115 H 24 102/73 90 04/25/21 00:00 36.8 C 113 H 24 104/75 91 04/24/21 23:45 36.8 C 114 H 24 107/76 90 04/24/21 23:30 36.9 C 116 H 24 110/73 91 04/24/21 23:15 36.9 C 117 H 24 110/79 90 04/24/21 23:08 117 H 24 91 04/24/21 23:00 36.9 C 117 H 24 133/82 91 04/24/21 22:45 37.1 C 121 H 24 133/83 91 04/24/21 22:30 37.1 C 121 H 24 130/88 90 04/24/21 22:15 37.2 C 125 H 25 H 133/91 90 04/24/21 22:00 37.2 C 126 H 22 148/96 H 90 04/24/21 21:45 37.3 C 125 H 24 156/88 H 90 04/24/21 21:30 37.4 C 125 H 25 H 148/87 H 90 04/24/21 21:15 37.4 C 124 H 27 H 171/97 H 89 L 04/24/21 21:00 37.5 C 123 H 26 H 163/101 H 89 L 04/24/21 20:45 37.6 C H 127 H 29 H 155/94 H 91 04/24/21 20:30 37.7 C H 124 H 28 H 160/96 H 90 04/24/21 20:15 37.8 C H 128 H 27 H 167/91 H 89 L 04/24/21 20:00 38.0 C H 123 H 26 H 164/90 H 90 04/24/21 19:49 119 H 20 92 04/24/21 19:45 38.0 C H 118 H 21 169/88 H 91 04/24/21 19:38 38.0 C H 119 H 20 154/85 H 92 04/24/21 19:32 125 H 13 94 04/24/21 19:27 115 H 22 123/84 89 L 04/24/21 19:24 116 H 25 H 91 Critical Care Results & Data Vital Signs (Past 12 Hours) Vital Signs Temp Pulse Resp BP Pulse Ox 04/25/21 06:30 37.6 C H 116 H 32 H 109/73 94 04/25/21 06:15 37.5 C 117 H 32 H 106/76 04/25/21 06:00 37.5 C 116 H 32 H 99/76 L 04/25/21 05:45 37.4 C 116 H 32 H 107/75 04/25/21 05:30 37.3 C 115 H 32 H 106/73 04/25/21 05:15 37.3 C 114 H 32 H 95/79 L 04/25/21 05:00 37.2 C 114 H 32 H 106/71 04/25/21 04:45 37.2 C 115 H 32 H 111/76 04/25/21 04:30 37.1 C 115 H 28 H 111/72 04/25/21 04:25 32 H 04/25/21 04:15 37.1 C 114 H 24 107/78 96 04/25/21 04:00 37.0 C 113 H 24 113/78 96 04/25/21 03:45 37.0 C 112 H 24 114/74 96 04/25/21 03:34 112 H 24 92 04/25/21 03:30 36.9 C 102 H 24 105/78 98 04/25/21 03:15 36.9 C 109 H 24 103/74 93 04/25/21 03:00 36.9 C 108 H 21 97/67 L 95 04/25/21 02:45 36.9 C 112 H 24 96/69 L 92 04/25/21 02:30 36.8 C 114 H 24 94/70 L 91 04/25/21 02:15 36.8 C 113 H 24 95/73 L 91 04/25/21 02:00 36.7 C 113 H 21 96/71 L 91 04/25/21 01:45 36.7 C 113 H 24 94/70 L 91 04/25/21 01:30 36.7 C 112 H 24 91/65 L 90 04/25/21 01:15 36.7 C 116 H 24 88/71 L 90 04/25/21 01:00 36.7 C 113 H 24 91/68 L 90 04/25/21 00:45 36.7 C 114 H 24 98/72 L 91 04/25/21 00:30 36.7 C 115 H 24 90 04/25/21 00:15 36.8 C 115 H 24 102/73 90 04/25/21 00:00 36.8 C 113 H 24 104/75 91 04/24/21 23:45 36.8 C 114 H 24 107/76 90 04/24/21 23:30 36.9 C 116 H 24 110/73 91 04/24/21 23:15 36.9 C 117 H 24 110/79 90 04/24/21 23:08 117 H 24 91 04/24/21 23:00 36.9 C 117 H 24 133/82 91 04/24/21 22:45 37.1 C 121 H 24 133/83 91 04/24/21 22:30 37.1 C 121 H 24 130/88 90 04/24/21 22:15 37.2 C 125 H 25 H 133/91 90 04/24/21 22:00 37.2 C 126 H 22 148/96 H 90 04/24/21 21:45 37.3 C 125 H 24 156/88 H 90 04/24/21 21:30 37.4 C 125 H 25 H 148/87 H 90 04/24/21 21:15 37.4 C 124 H 27 H 171/97 H 89 L 04/24/21 21:00 37.5 C 123 H 26 H 163/101 H 89 L 04/24/21 20:45 37.6 C H 127 H 29 H 155/94 H 91 04/24/21 20:30 37.7 C H 124 H 28 H 160/96 H 90 04/24/21 20:15 37.8 C H 128 H 27 H 167/91 H 89 L 04/24/21 20:00 38.0 C H 123 H 26 H 164/90 H 90 04/24/21 19:49 119 H 20 92 04/24/21 19:45 38.0 C H 118 H 21 169/88 H 91 04/24/21 19:38 38.0 C H 119 H 20 154/85 H 92 04/24/21 19:32 125 H 13 94 04/24/21 19:27 115 H 22 123/84 89 L 04/24/21 19:24 116 H 25 H 91 Lab & Micro Results (Past 24 Hours) RBC 4.61 M/uL (4.7-6.1) L 04/25/21 WBC 34.12 K/uL (4.8-10.8) H* 04/25/21 Hgb 14.0 g/dL (14.0-18.0) 04/25/21 Hct 43.8 % (42-52) 04/25/21 MCV 95.0 fL (80-100) 04/25/21 MCH 30.4 pg (25-34) 04/25/21 MCHC 32.0 g/dL (32-36) 04/25/21 RDW Standard Deviation 47.6 fL (36.4-46.3) H 04/25/21 RDW Coefficient of Variation 13.7 % (11.5-14.5) 04/25/21 Plt Count 240 K/uL (130-400) 04/25/21 MPV 10.6 fL (7.4-10.4) H 04/25/21 Neutrophils (%) (Auto) 91.4 % 04/25/21 Lymphocytes (%) (Auto) 1.9 % 04/25/21 Monocytes # (Auto) 0.85 K/uL (0.11-0.59) H 04/25/21 Eosinophils # (Auto) 0.01 K/uL (0-0.5) 04/25/21 Immature Granulocyte % (Auto) 3.9 % 04/25/21 Neutrophils # (Auto) 31.18 K/uL (1.4-6.5) H 04/25/21 Lymphocytes # (Auto) 0.64 K/uL (1.2-3.4) L 04/25/21 Monocytes # (Auto) 0.85 K/uL (0.11-0.59) H 04/25/21 Eosinophils # (Auto) 0.01 K/uL (0-0.5) 04/25/21 Basophils # (Auto) 0.10 K/uL (0-0.2) 04/25/21 Immature Granulocyte # (Auto) 1.34 K/uL (0.00-0.02) H 04/25/21 Na 131 mmol/L (136-145) L 04/25/21 K 6.2 mmol/L (3.5-5.1) H* 04/25/21 Cl 93 mmol/L (98-107) L 04/25/21 CO2 27 mmol/L (21-32) 04/25/21 Anion Gap 11 (3-11) 04/25/21 BUN 45 mg/dl (6-23) H 04/25/21 Creatinine 1.57 mg/dl (0.6-1.4) H 04/25/21 Estimated GFR ( Amer) 57.5 ml/min 04/25/21 Estimated GFR (Non-Af Amer) 49.6 ml/min 04/25/21 BUN/Creatinine Ratio 28.7 (10-20) H 04/25/21 Glu 247 mg/dl (70-99(Fasting)) H 04/25/21 Ca 8.4 mg/dl (8.5-10.1) L 04/25/21 Phosphorus Level 9.0 mg/dl (2.5-4.9) H 04/25/21 Total Bilirubin 0.7 mg/dl (0.2-1.0) 04/25/21 AST 31 U/L (13-39) 04/25/21 ALT 30 U/L (7-52) 04/25/21 Alkaline Phosphatase 114 U/L (34-104) H 04/25/21 TP 6.6 gm/dl (6.0-8.3) 04/25/21 Albumin 2.8 gm/dl (3.4-5.0) L 04/25/21 Globulin 3.8 gm/dl (2.5-4.0) 04/25/21 Albumin/Globulin Ratio 0.7 (0.9-2) L 04/25/21 Mg 2.5 mg/dl (1.7-2.4) H 04/25/21 05:16 04/25/21 Calcium Level 8.4 mg/dl (8.5-10.1) L 04/25/21 07:47 04/25/21 Monty Test NA 04/25/21 05:22 04/25/21 Microbiology 04/24/21 17:15 Gram Stain - Final Sputum, Expectorated Diagnostic Findings (Past 24 Hours) Chest X-Ray 04/24/21 00:39 SINGLE VIEW CHEST CLINICAL HISTORY: Hypoxia. Covid pneumonia. FINDINGS: An AP, portable, upright chest radiograph is compared to study dated 04/22/2021. Correlation is made with chest CT dated 05/11/2010. The examination is degraded by portable technique and patient rotation. The cardiomediastinal silhouette is unremarkable. Extensive/multifocal airspace consolidation has not appreciably changed as compared to 04/22/2021. No large pleural effusion or pneumothorax is seen. The bony thorax is grossly intact. IMPRESSION: Multifocal airspace consolidation has not appreciably changed as compared to 04/22/2021. ACT 112: Negative or not required by law. Electronically signed by: Brady Cam M.D. 04/24/2021 7:53 AM Chest X-Ray 04/24/21 17:36 XR chest 1V portable at 6:59 PM CLINICAL HISTORY: Status post intubation and line placement. Evaluate for positioning of pneumothorax. COMPARISON STUDY: Portable chest from 04/24/2021 at 1:31 AM TECHNIQUE: 1 view of the chest FINDINGS: Single frontal view of the chest demonstrates the cardiomediastinal silhouette to be within normal limits. There has been interval placement of an endotracheal tube with its tip approximately 4.3 cm above the evelyn. Right subclavian catheter is also been placed with its tip extending into the right atrium. There is no evidence for pneumothorax. Diffuse interstitial and alveolar opacities are again seen bilaterally charac teristic of a viral type pneumonitis and Covid 19 pneumonia. There is no evidence for pleural effusion. There is no evidence for vascular congestion. There is no acute osseous pathology. IMPRESSION: Tubes and catheters are in anatomic position with no evidence for pneumothorax. Diffuse interstitial and alveolar opacities are again seen bilaterally and unchanged. ACT 112: Negative or not required by law. Electronically signed by: Valdo Marina M.D. 04/24/2021 7:37 PM I & O Totals 24 Hours 04/24/21 04/25/21 04/26/21 06:59 06:59 06:59 Intake Total 2720 / 2720 1430.370 / 1430.370 Output Total 3575 / 3575 1625 / 1625 Balance -855 / -855 -194.630 / -194.630 Cumulative 04/16/21 11:11 thru 04/25/21 06:00 Intake Total 97834.370 Output Total 57535 Balance -3845.630 RT Ventilator Mngmt (Last Documented) Ventilator Ordered Settings Ventilator Support Mode Assist Control 04/25/21 03:34 Respiratory Rate 32 04/25/21 06:30 Ventilator Tidal Volume 460 04/25/21 03:34 Setting Minute Ventilation 22 04/25/21 03:34 Positive End Expiratory 18 04/25/21 03:34 Pressure Fraction of Inspired Oxygen 70 04/25/21 06:30 Ventilator - PT Measurements Respiratory Rate 32 Exhaled Tidal Volume 461 Minute Ventilation 22 Peak Inspiratory Airway 40 Pressure Plateau Pressure 34.4 Respiratory Cycle Inspiratory: 1:2.6 Expiratory Ratio Inspiratory Phase Time 0.7 End-Tidal CO2 50 Static Lung Compliance 28.11 Dynamic Lung Compliance 20.95 Normal Static Lung Compliance 46.00 Patient Measurements Comment Pt intubated by Dr. Abrams at this time. Vent settings per Dr. Abrams. Critical Care Time I have personally spent 55 minutes of critical care time in the direct management of this patient. This is a life/limb threatening event. This includes time spent evaluating patient, direct bedside care, chart review, placing orders, interpretation of diagnostic studies, discussion with consultants, patient, and/or family members regarding treatment decisions, as well as other required patient management activities. This time is exclusive of all separately billable procedures, and teaching time and separate from and in addition to any other critical care service time. Resident Activity Tracking Resident Involvement: Resident Care Provided Care Provided: Adult Hospital Medicine
[2021-04-25] MEDS: amLODIPine BESYLATE 5 MG TAB PO SCH (08:17)
[2021-04-25] MEDS ORDERED: INSULIN HUMAN NPH SC SCH ×2 (09:00)
[2021-04-25] MEDS ORDERED: dexAMETHasone 6 MG in SYRINGE 0 ML IV SCH (09:00)
[2021-04-25 09:01] LABS: BUN Creatinine Ratio 28.7 (10-20); Calcium 8.4 mg/dl (8.5-10.1); Creatinine Clr Calc Pharmacy 70.5 ml/min; Est GFR (African American) 57.5 ml/min; Est GFR (Non-African American) 49.6 ml/min; Potassium 6.2 mmol/L (3.5-5.1)
[2021-04-25] MEDS: fentaNYL citrate 2,500 MCG/250 ML BAG IV SCH ×2 (09:28→21:31)
[2021-04-25] MEDS: dexAMETHasone 10 MG in SYRINGE 0 ML IV SCH (09:29)
[2021-04-25] MEDS: PANTOprazole 40 MG TAB PO SCH (09:30)
[2021-04-25] MEDS: DOCUSATE SODIUM/SENNA 50/8.6MG TAB PO SCH (09:30)
--- NOTE | 2021-04-25 09:40 | Hospitalist Progress Note ---
Date of Service April 25, 2021 Assessment & Plan (1) Acute respiratory failure with hypoxia: Plan: Secondary to COVID-pneumonia. Evidence of cytokine storm with high level oxygen. Now vent dependent. Baricitinib DCd per ID Continue supportive care with oxygen. Continue supportive therapies. Empiric Full Dose Lovenox started, Remdesivir even though out of window. Talked him into being a full code, and now intubated. (2) Pneumonia due to 2019 novel coronavirus: Plan: Plan as above. (3) HTN (hypertension): Plan: Controlled (4) DM type 2 (diabetes mellitus, type 2): Plan: -Hgb A1c 8.2 10/2020 -Hold oral agents and utilize Lantus and NovoLog per protocol hospitalized -Glycemic pharmacy consulted while receiving IV steroids -Currently euglycemic, cont current therapy. (5) FARNAZ on CPAP: Plan: -CPAP as per home settings, when weaned (6) Obesity: Plan: -BMI 36.4, elevates his risk of complications with covid-19. (7) Anxiety: Plan: Vented and sedated (8) DVT prophylaxis: Plan: SQ Full dose Lovenox Conditional Code-no intubation, CPR and noninvasive ventilation ok as needed Dispo-cont PCU. ROS-Offers no History, on vent Physical Exam Gen-NAD, febrile, Tachycardic and Tachypneic. Head-NCAT, Anicteric Sclera, +ETT Neck-Supple, No JVD, No Thyromegaly, No Masses, No LAD, No Bruits Lungs-Clear to Auscultation Bilaterally, No Rales, No Rhonchi, No Wheezing, No Crepitus Chest-No S4, +S1, +S2, No S3, No Murmurs, No Rubs, No Gallops, No Ectopy Abdomen-Soft, Bowel Sounds Present, Non Tender, Obese, Non Distended, No Hepatomegaly, No Splenomegaly, No Palpable Masses, No Rebound, No Rigidity, No Guarding Musculoskeletal-NA Extremities-No Cyanosis, No Clubbing, No Edema Nuero- Non Focal Admission and Anticipated Discharge Date Admission Date: April 16, 2021 Subjective 51-year-old man presented for evaluation of worsening shortness of breath. Reports a positive home test on April 06 for COVID-19 with symptoms beginning that day. Patient is unvaccinated and was started by primary care doctor on 04/14 with a prednisone taper and albuterol inhaler. Presented with fever diaphoresis and hypoxia. In the ER he was requiring 15 L oxygen mask to maintain appropriate oxygen saturation. Escalated to hi flow oxygen supplementation with cytokine storm. Baricitinib added. Patient now sedated and vented, possible trach today Results & Data Results & Data ([facility]) Vital Signs (Past 12 Hours) Vital Signs Temp Pulse Resp BP Pulse Ox 04/25/21 08:45 115 H 33 H 96 04/25/21 06:30 37.6 C H 116 H 32 H 109/73 94 04/25/21 06:15 37.5 C 117 H 32 H 106/76 04/25/21 06:00 37.5 C 116 H 32 H 99/76 L 04/25/21 05:45 37.4 C 116 H 32 H 107/75 04/25/21 05:30 37.3 C 115 H 32 H 106/73 04/25/21 05:15 37.3 C 114 H 32 H 95/79 L 04/25/21 05:00 37.2 C 114 H 32 H 106/71 04/25/21 04:45 37.2 C 115 H 32 H 111/76 04/25/21 04:30 37.1 C 115 H 28 H 111/72 04/25/21 04:25 32 H 04/25/21 04:15 37.1 C 114 H 24 107/78 96 04/25/21 04:00 37.0 C 113 H 24 113/78 96 04/25/21 03:45 37.0 C 112 H 24 114/74 96 04/25/21 03:34 112 H 24 92 04/25/21 03:30 36.9 C 102 H 24 105/78 98 04/25/21 03:15 36.9 C 109 H 24 103/74 93 04/25/21 03:00 36.9 C 108 H 21 97/67 L 95 04/25/21 02:45 36.9 C 112 H 24 96/69 L 92 04/25/21 02:30 36.8 C 114 H 24 94/70 L 91 04/25/21 02:15 36.8 C 113 H 24 95/73 L 91 04/25/21 02:00 36.7 C 113 H 21 96/71 L 91 04/25/21 01:45 36.7 C 113 H 24 94/70 L 91 04/25/21 01:30 36.7 C 112 H 24 91/65 L 90 04/25/21 01:15 36.7 C 116 H 24 88/71 L 90 04/25/21 01:00 36.7 C 113 H 24 91/68 L 90 04/25/21 00:45 36.7 C 114 H 24 98/72 L 91 04/25/21 00:30 36.7 C 115 H 24 90 04/25/21 00:15 36.8 C 115 H 24 102/73 90 04/25/21 00:00 36.8 C 113 H 24 104/75 91 04/24/21 23:45 36.8 C 114 H 24 107/76 90 04/24/21 23:30 36.9 C 116 H 24 110/73 91 04/24/21 23:15 36.9 C 117 H 24 110/79 90 04/24/21 23:08 117 H 24 91 04/24/21 23:00 36.9 C 117 H 24 133/82 91 04/24/21 22:45 37.1 C 121 H 24 133/83 91 04/24/21 22:30 37.1 C 121 H 24 130/88 90 04/24/21 22:15 37.2 C 125 H 25 H 133/91 90 04/24/21 22:00 37.2 C 126 H 22 148/96 H 90 04/24/21 21:45 37.3 C 125 H 24 156/88 H 90
--- NOTE | 2021-04-25 09:57 | XRay Report ---
XR chest 1V portable CLINICAL HISTORY: intubation. Follow-up interstitial and alveolar opacity COMPARISON STUDY: 04/24/2021 TECHNIQUE: 1 view of the chest FINDINGS: Single frontal view of the chest demonstrates the cardiomediastinal silhouette to be within normal li mits. ET tube and right subclavian catheter are unchanged. Enteric tube has been placed with its tip extending below the edge of the film and into the stomach. Compared to previous examination, diffuse interstitial and alveolar opacities are again seen bilaterally and unchanged. There is no evidence fo r pleural effusion. There is no evidence for vascular congestion. There is no acute osseous pathology . IMPRESSION: ET tube and right subclavian catheter unchanged. Enteric tube has been placed with its ti p extending below the edge of the film and into the stomach. Bilateral interstitial and alveolar opac ities are again seen and unchanged. ACT 112: Negative or not required by law. Electronically signed by: Valdo Marina M.D. 04/25/2021 9:56 AM
--- NOTE | 2021-04-25 10:04 | XRay Report ---
KUB HISTORY: confirm coresafe NGT placement COMPARISON: Abdomen and pelvis CT 03/25/2013. FINDINGS: The bowel gas pattern is unremarkable. There are no dilated loops of small bowel to suggest an obstruction. No renal calculi. No ureteral calculi. No pneumoperitoneum or pneumatosis. The feed ing tube tip terminates in the gastric antrum. Partially visualized central venous catheter terminate s at the distal SVC. Patchy bilateral airspace opacities persist. IMPRESSION: The feeding tube tip terminates at the expected location of the gastric antrum. ACT 112: Negative or not required by law. Electronically signed by: Torres Mchugh M.D. 04/25/2021 10:02 AM
--- NOTE | 2021-04-25 10:12 | Billing Data ---
Date of Service April 25, 2021 Coding Level of Care Code Critical Care 1st - mins
[2021-04-25] MEDS ORDERED: NOVASOURCE RENAL 2.0 CAL 1000ML BAG OG SCH (10:45)
[2021-04-25] MEDS ORDERED: SODIUM CHLORIDE 0.9% 1000ML 500 ML IV ONE (10:49)
[2021-04-25] MEDS ORDERED: INSULIN PROTOCOL GOAL RANGE ONE (10:56)
[2021-04-25] MEDS ORDERED: NovoLIN-R BOLUS FROM BAG IV ONE (11:00)
[2021-04-25] MEDS ORDERED: LACTULOSE SYRUP 20 GM/30 ML UDC PO ONE (11:00)
--- NOTE | 2021-04-25 11:05 | Ultrasound Report ---
BILATERAL LOWER EXTREMITY VENOUS DOPPLER CLINICAL HISTORY: Covid. COMPARISON STUDY: No previous studies for comparison. TECHNIQUE: Sonography of the deep venous system of the bilateral lower extremities was performed. Co mpression and augmentation were evaluated. FINDINGS: Note is made of deep venous thrombus within the right popliteal and peroneal veins. There i s also deep venous thrombus within the left popliteal vein as well as thrombus within superficial vei ns posterior to the left knee. IMPRESSION: 1. Deep venous thrombus within the right popliteal and right peroneal veins and deep venous thrombus within the left popliteal vein. 2. Thrombus within superficial veins posterior to the right knee. ACT 112: Negative or not required by law. Electronically signed by: Reynaldo Michel M.D. 04/25/2021 11:04 AM
[2021-04-25] MEDS ORDERED: DC ALL ANTICOAGULANTS STA (11:21)
[2021-04-25] MEDS ORDERED: PRIMARY PLUMSET, PE LINED TUBING, 113 IN, NON-DEHP (2260-0500) IV STA (11:21)
[2021-04-25] MEDS: ALBUMIN 25% 100 mL 25 GM/100 ML VIAL IV SCH ×2 (11:27→12:52)
[2021-04-25] MEDS: PANTOprazole 40 MG in SYRINGE 0 ML IV SCH (11:27)
[2021-04-25] MEDS ORDERED: ALTEPLASE, RECOMBINANT 100 MG in EMPTY BAG 0 ML IV ONE (11:30)
--- NOTE | 2021-04-25 11:30 | Communication Note ---
Date of Service: April 25, 2021 Patient was found to have presumptively acute bilateral lower extremity DVTs. He had received a dose of baricitinib. Patient's PF ratio is 86 and he has been in severe refractory arts for greater than 4 hours. After extensive discussion with the patient yesterday he wanted to minimize disability but still wanted to be alive to watch his 10-year-old daughter grow up. I discussed risks and benefits of tPA administration with his . She agrees that the patient would want to minimize disability, he meets criteria of the current [place] tPA study and COVID, and there are several case reports indicating improvement after tPA. I do not believe he is at high risk for bleeding complications. Patient gives consent to proceed with systemic tPA administration. I am unable to obtain a CT scan of the chest secondary to acute kidney injury. Patient would obviously not prefer dialysis however the patient's will give consent for dialysis should this be required. Patient is requiring low-dose Levophed and given his severity of pulmonary illness I do not believe echo findings or lack thereof would change my opinion to proceed with tPA in the setting of acute venous thromboembolism. Current case reports list risk of life-threatening bleeding is less than 1%. I feel the benefits outweigh the risks in this patient. Coding Level of Care Code None
[2021-04-25] MEDS: INSULIN REGULAR 250 UNITS in SODIUM CHLORIDE 0.9% 247.5 ML IV SCH (11:40)
[2021-04-25 11:48] LABS: BUN Creatinine Ratio 29.8 (10-20); Calcium 8.3 mg/dl (8.5-10.1); Creatinine Clr Calc Pharmacy 68.8 ml/min; Est GFR (African American) 55.8 ml/min; Est GFR (Non-African American) 48.1 ml/min; Potassium 5.7 mmol/L (3.5-5.1)
[2021-04-25] MEDS ORDERED: REMDESIVIR 100 MG in SODIUM CHLORIDE 0.9% 230 ML IV SCH (12:00)
--- NOTE | 2021-04-25 12:52 | Pharmacy Report ---
Pharmacy Glycemic Short Note 2 - Date of Service April 25, 2021 - Glycemic Short BSG Results (Last 24 hours): 04/24/21 04/24/21 04/25/21 16:40 20:50 00:05 Glucose POC Glucose 247 H 140 H 151 H POC Glucose (other) 04/25/21 04/25/21 04/25/21 04:00 05:16 07:19 Glucose 218 H POC Glucose POC Glucose (other) 200 H 241 H 04/25/21 04/25/21 07:47 10:40 Glucose 247 H 250 H POC Glucose POC Glucose (other) OUTPATIENT ANTIDIABETIC REGIMEN: * Metformin 1000 mg PO BID * Dulaglutide 3 mg SQ weekly on Thu * A1c: 9.2% (04/17/21) ASSESSMENT: 04/25: * Patient required intubation last evening. This AM patient is intubated, sedated, paralyzed, receiving pressors (norepi @0.07mcg/kg/min), new ZEN, IV steroid dose increased, Peptamen tube feeds initiated last night however being changed to Novasource renal at "trickle" rates. New dx of DVTs, possible PE. IV thrombolysis planned followed by IV heparin infusion. * BSGs did climb overnight to mid-200s this AM. This is prior to receiving today's dose of IV steroid and changing to a carb heavy feeding. IV insulin infusion will be initiated per protocol, may also have added benefit in hyperkalemia 04/24 * Worsening resp distress noted overnight. Patient decompensated despite proning. Hospitalist notified, IV dexamethasone admin early. * Pt noted to be hypoglycemic overnight. BSGs recovered following IV D50. Not tolerating PO with breakfast this AM. * Withheld AM NPH due to recent hypo as well as poor PO and anticipated poor PO today. Will give reduced NPH dose this afternoon as BSGs climbing again. Jay Jay colindres reeval NPH needs tomorrow AM. * Continue "severe" stress Novolog doses however decrease correctional insulin doses given HS and overnight 04/21: * Blood sugars continue to trend up with steroid throughout the day and then drop overnight * Tighten CF/CR AC and increase NPH to cover steroid effects * Loosen HS, and DC Lantus to prevent AM hypoglycemia 04/19: * Fasting improved with addition of 10 units of lantus, will continue scale for PM tonight * Continued same NPH dose (0.4 unit/kg adjbw) with dexamethasone and tightedn carb ratio, lunch BSG improved continue to monitor for additional changes PLAN FOR INPATIENT GLYCEMIC CONTROL: * Hold outpatient diabetes medications (metformin, Trulicity) * Begin IV insulin per protocol, goal range 110-180mg/dL * Basal insulin * d/c NPH * Bolus insulin * NovoLog Q 4 hrs to cover carbs in tube feeds. * Nutritional / Prandial insulin per carb ratio of 1 unit per 3 grams CHO delivered in continuous tube feeds PLAN FOR DISCHARGE: * HbA1c: 9.2% suggests poor outpatient glycemic control * Reasonable to continue metformin and Trulicity at discharge if no contraindications * Consider addition of second oral agent that would minimize weight gain/promote weight loss, such as SGLT2 inhibitor * Initial dosing of empagliflozin would be 10 mg PO daily * Alternatively, if patient agreeable to insulin, could consider once daily basal insulin (although, concern for insulin-induced weight gain)
[2021-04-25 13:13] LABS: Fibrinogen 546 mg/dl (184-400); INR 1.1 (0.9-1.1); Prothrombin Time 11.5 Seconds (9.0-12.0)
[2021-04-25] MEDS: ACETAMINOPHEN 650 MG SUPP PR PRN (13:23)
[2021-04-25] MEDS ORDERED: SODIUM CHLORIDE 0.9% 50 ML BAG IV SCH (13:30)
[2021-04-25] MEDS ORDERED: HEPARIN SOD 5,000 UNIT/0.5 ML VIAL SQ SCH (14:00)
[2021-04-25 14:53] LABS: Hematocrit (blood only) 37.8 % (42-52); Hemoglobin 12.1 g/dL (14.0-18.0); Mean Corpuscular Hemoglobin 30.2 pg (25-34); Mean Corpuscular Volume 94.3 fL (80-100); Platelet Count 191 K/uL (130-400); RDW Coefficient of Variation 13.9 % (11.5-14.5); RDW Standard Deviation 48.2 fL (36.4-46.3); Red Blood Count 4.01 M/uL (4.7-6.1); White Blood Count 23.46 K/uL (4.8-10.8)
[2021-04-25 15:05] LABS: Partial Thromboplastin Ratio 1.1; Partial Thromboplastin Time 27.9 Seconds (21.0-31.0)
[2021-04-25] MEDS: HEPARIN SODIUM/DEXTROSE 25,000 UNITS/500 ML BAG IV SCH (15:45)
[2021-04-25] MEDS: Heparin IV Adult Wt-Based Low-Dose *NO* Bolus Protocol IV SCH ×5 (16:26→18:01)
[2021-04-25 17:14] LABS: BUN Creatinine Ratio 27.3 (10-20); Calcium 8.5 mg/dl (8.5-10.1); Creatinine Clr Calc Pharmacy 57.1 ml/min; Est GFR (African American) 44.5 ml/min; Est GFR (Non-African American) 38.4 ml/min; Potassium 5.3 mmol/L (3.5-5.1)
[2021-04-25] MEDS: MIDAZOLAM HCL 125 MG/250 ML BAG IV SCH (18:28)
[2021-04-25] MEDS: ACETAMINOPHEN SUSP 325 MG/10.15 ML UDC OG PRN (18:38)
[2021-04-25 22:06] LABS: Partial Thromboplastin Ratio 1.3; Partial Thromboplastin Time 33.2 Seconds (21.0-31.0)
[2021-04-25 22:07] LABS: BUN Creatinine Ratio 27.6 (10-20); Calcium 8.5 mg/dl (8.5-10.1); Creatinine Clr Calc Pharmacy 52.7 ml/min; Est GFR (African American) 40.4 ml/min; Est GFR (Non-African American) 34.9 ml/min
[2021-04-26] MEDS: ACETAMINOPHEN SUSP 325 MG/10.15 ML UDC OG PRN ×2 (00:21→04:21)
[2021-04-26] MEDS: ARTIFICIAL TEARS OP OINT 3.5 GM TUBE OP SCH ×6 (00:21→19:45)
[2021-04-26] MEDS: INSULIN ASPART PER UNIT SC SCH ×6 (00:31→21:30)
[2021-04-26] MEDS: CISATRACURIUM BESYLATE 40 MG in DEXTROSE 5% 80 ML IV SCH ×7 (00:58→21:25)
[2021-04-26] MEDS: NOREPINEPHRINE/D5W 8 MG/508 ML BAG IV SCH ×2 (03:18→14:08)
[2021-04-26] MEDS: propofoL 1,000 MG/100 ML VIAL IV SCH (04:21)
[2021-04-26 05:43] LABS: Basophils # (auto) 0.03 K/uL (0-0.2); Basophils % (auto) 0.1 %; Eosinophils # (auto) 0.01 K/uL (0-0.5); Hematocrit (blood only) 36.2 % (42-52); Hemoglobin 11.4 g/dL (14.0-18.0); Immature Granulocytes # (auto) 0.58 K/uL (0.00-0.02); Immature Granulocytes % (auto) 2.7 %; Lymphocytes % (auto) 3.7 %; Mean Corpuscular Hemoglobin 29.6 pg (25-34); Mean Corpuscular Hgb Conc 31.5 g/dL (32-36); Mean Platelet Volume 10.2 fL (7.4-10.4); Monocytes # (auto) 1.34 K/uL (0.11-0.59); Monocytes % (auto) 6.2 %; Neutrophils # (auto) 18.69 K/uL (1.4-6.5); Neutrophils % (auto) 87.3 %; Platelet Count 249 K/uL (130-400); RDW Coefficient of Variation 13.9 % (11.5-14.5); RDW Standard Deviation 48.5 fL (36.4-46.3); Red Blood Count 3.85 M/uL (4.7-6.1); White Blood Count 21.45 K/uL (4.8-10.8)
[2021-04-26 05:54] LABS: iSTAT Art Bld Gas pCO2 Correct 66 mmHg (35-46); iSTAT Art Bld Gas pH Corrected 7.308 (7.35-7.45); iSTAT Arterial Blood Gas HCO3 32 meg/L (19-24); iSTAT Arterial Blood Gas pCO2 61 mmHg (35-46); iSTAT Arterial Blood Gas pH 7.33 (7.35-7.45); iSTAT Arterial Blood Gas pO2 76 mmHg (80-95); iSTAT Arterial Blood Gas pO2 C 83; iSTAT Carbon Dioxide 34 mmol/L (24-31); iSTAT FiO2 90 %; iSTAT Hematocrit 33 % (42-52); iSTAT Hemoglobin 11.2 g/dl (14.0-18.0); iSTAT Potassium 4.6 mmol/L (3.3-5.0); iSTAT Site Art Line; iSTAT Sodium 133 mmol/L (135-144)
[2021-04-26 06:11] LABS: Partial Thromboplastin Ratio 1.2
[2021-04-26] MEDS ORDERED: HEPARIN IV BOLUS 4,000 UNITS in SYRINGE 0 ML IV ONE (06:45)
[2021-04-26 06:47] LABS: BUN Creatinine Ratio 28.5 (10-20); Calcium 8.5 mg/dl (8.5-10.1); Creatinine Clr Calc Pharmacy 51.9 ml/min; Est GFR (African American) 39.5 ml/min; Est GFR (Non-African American) 34.1 ml/min; Magnesium 2.8 mg/dl (1.7-2.4); Potassium 4.6 mmol/L (3.5-5.1)
--- NOTE | 2021-04-26 07:02 | Critical Care Progress Note ---
Date of Service April 26, 2021 Assessment & Plan (1) Anxiety: (2) Acute respiratory failure with hypoxia: (3) HTN (hypertension): (4) DM type 2 (diabetes mellitus, type 2): (5) Pneumonia due to 2019 novel coronavirus: (6) DVT prophylaxis: Plan: Reason Critically Ill: Acute hypoxic respiratory failure secondary to COVID-19 pneumonia PLAN: Neuro: Sedation: Propofol and Versed -- increase Versed and DC propofol today Analgesia: Fentanyl Intermittent neuromuscular blockade: Rocuronium -Discussion with patient he would not want prolonged sedation nor prolonged mechanical ventilation. Plan for possible trach. However, patient has DVTs on BLE Doppler so will hold off. Resp: Acute hypoxic respiratory failure -Intubation mechanical ventilation. After extensive discussion patient would opt for tracheostomy as opposed to 7 to 10 days of mechanical ventilation. -Do believe this is reasonable and the patient would likely not improve during that timeframe -Hold off on trach as pt has DVTs on Doppler -- now s/p tPA administration and on heparin gtt - Plan to prone today for 16h CV: Hypotension -Hold amlodipine - On levophed gtt -- suspect may improve as sedation decreased Fluids/Renal: Electrolyte protocol Hyperkalemia -- BMP q6h, insulin gtt Discuss possibility of dialysis once patient more alert with creatinine uptrending ID: DC remdesivir as pt out of window and has worsening renal function Finished course of Rocephin Remains febrile -- Blood and fungal cultures pending Lactate 1.9 GI/Nutrition: OG in place -- continue trickle feeds but switch to renal formula NSS 500mL + Albumin 25% 50g IV 04/25/21 Alk phos elevated -- Lipase 21 Heme: DVT prophylaxis: Heparin gtt now s/p tPA due to DVTs on Doppler with compromised breathing status Endocrine: ICU hyperglycemia protocol Increase dexamethasone from 6 to 10 mg for total of 10 days Continue insulin gtt with elevated BSG and hyperkalemia Vascular access: Right subclavian central venous access, right radial art line Code Status: Full code Disposition: ICU Admission and Anticipated Discharge Date Admission Date: April 16, 2021 Supervising Physician Co-Signing Physician Notes Dr. Flores was resident physician during care of patient. I separately evaluated patient for gallagher portions of the history and the exam. I was present during the critical portion of medical decision making, and I discussed the case with the resident. I generally agree with the findings and plan. Potassium is within normal limits. Hopefully his creatinine is nearing and will improve, continue trickle tube feeds we will proceed with pronation today in minimal if any improvement in oxygenation after tPA. Discontinue propofol and transition to Versed, continue heparin drip, Rocephin was administered for 8 days. Patient not candidate for tracheostomy at this point however he was agreeable and preferred early tracheostomy. Patient was discussed on multidisciplinary rounds Subjective No acute events overnight. Now s/p tPA without complications thus far. Review of Systems Review of Systems: Unobtainable due to endotracheal tube Physical Exam Physical Exam: GENERALSedated, intubated CHEST/LUNGS: CTAB A/P. No crackles, wheezes, rales, rhonchi. Decreased air movement bilaterally. HEART: Tachycardic, regular rhythm. No m/g/r. EXTREMITIES: No cyanosis, no clubbing, no edema SKIN: Warm and dry. No rashes or lesions. NEUROLOGIC: Unable to assess due to intubation/sedation Results & Data Results & Data ([facility]) Vital Signs (Past 12 Hours) Vital Signs Temp Pulse Resp BP Pulse Ox 04/26/21 03:55 110 H 32 H 91 04/26/21 03:30 38.5 C H 98 H 32 H 04/26/21 03:00 38.6 C H 101 H 32 H 04/26/21 02:30 38.6 C H 103 H 32 H 04/26/21 02:00 38.7 C H 104 H 32 H 04/26/21 01:30 38.7 C H 105 H 32 H 04/26/21 01:00 38.7 C H 103 H 32 H 04/26/21 00:30 38.8 C H 106 H 32 H 04/26/21 00:00 38.8 C H 110 H 32 H 04/25/21 23:31 107 H 04/25/21 23:30 38.8 C H 107 H 32 H 04/25/21 23:00 38.8 C H 110 H 32 H 108/73 04/25/21 22:55 110 H 32 H 91 04/25/21 22:45 38.8 C H 110 H 32 H 108/73 04/25/21 22:30 38.8 C H 108 H 32 H 108/71 04/25/21 22:15 38.8 C H 107 H 32 H 104/71 04/25/21 22:00 38.8 C H 108 H 32 H 105/71 04/25/21 21:45 38.8 C H 109 H 32 H 103/70 04/25/21 21:30 38.8 C H 110 H 32 H 104/71 04/25/21 21:15 38.8 C H 109 H 32 H 103/70 04/25/21 21:00 38.8 C H 108 H 32 H 100/70 04/25/21 20:45 38.8 C H 109 H 32 H 107/68 04/25/21 20:30 38.9 C H 110 H 32 H 107/70 04/25/21 20:16 38.9 C H 113 H 32 H 109/72 91 04/25/21 20:01 38.9 C H 113 H 32 H 118/69 93 04/25/21 20:00 38.9 C H 112 H 32 H 04/25/21 19:45 38.9 C H 113 H 32 H 107/74 04/25/21 19:30 38.8 C H 113 H 32 H 107/72 04/25/21 19:20 113 H 32 H 91 04/25/21 19:15 38.8 C H 111 H 32 H 104/71 Critical Care Results & Data Vital Signs (Past 12 Hours) Vital Signs Temp Pulse Resp BP Pulse Ox 04/26/21 03:55 110 H 32 H 91 04/26/21 03:30 38.5 C H 98 H 32 H 04/26/21 03:00 38.6 C H 101 H 32 H 04/26/21 02:30 38.6 C H 103 H 32 H 04/26/21 02:00 38.7 C H 104 H 32 H 04/26/21 01:30 38.7 C H 105 H 32 H 04/26/21 01:00 38.7 C H 103 H 32 H 04/26/21 00:30 38.8 C H 106 H 32 H 04/26/21 00:00 38.8 C H 110 H 32 H 04/25/21 23:31 107 H 04/25/21 23:30 38.8 C H 107 H 32 H 04/25/21 23:00 38.8 C H 110 H 32 H 108/73 04/25/21 22:55 110 H 32 H 91 04/25/21 22:45 38.8 C H 110 H 32 H 108/73 04/25/21 22:30 38.8 C H 108 H 32 H 108/71 04/25/21 22:15 38.8 C H 107 H 32 H 104/71 04/25/21 22:00 38.8 C H 108 H 32 H 105/71 04/25/21 21:45 38.8 C H 109 H 32 H 103/70 04/25/21 21:30 38.8 C H 110 H 32 H 104/71 04/25/21 21:15 38.8 C H 109 H 32 H 103/70 04/25/21 21:00 38.8 C H 108 H 32 H 100/70 04/25/21 20:45 38.8 C H 109 H 32 H 107/68 04/25/21 20:30 38.9 C H 110 H 32 H 107/70 04/25/21 20:16 38.9 C H 113 H 32 H 109/72 91 04/25/21 20:01 38.9 C H 113 H 32 H 118/69 93 04/25/21 20:00 38.9 C H 112 H 32 H 04/25/21 19:45 38.9 C H 113 H 32 H 107/74 04/25/21 19:30 38.8 C H 113 H 32 H 107/72 04/25/21 19:20 113 H 32 H 91 04/25/21 19:15 38.8 C H 111 H 32 H 104/71 Lab & Micro Results (Past 24 Hours) RBC 3.85 M/uL (4.7-6.1) L 04/26/21 WBC 21.45 K/uL (4.8-10.8) H 04/26/21 Hgb 11.4 g/dL (14.0-18.0) L 04/26/21 Hct 36.2 % (42-52) L 04/26/21 MCV 94.0 fL (80-100) 04/26/21 MCH 29.6 pg (25-34) 04/26/21 MCHC 31.5 g/dL (32-36) L 04/26/21 RDW Standard Deviation 48.5 fL (36.4-46.3) H 04/26/21 RDW Coefficient of Variation 13.9 % (11.5-14.5) 04/26/21 Plt Count 249 K/uL (130-400) 04/26/21 MPV 10.2 fL (7.4-10.4) 04/26/21 Neutrophils (%) (Auto) 87.3 % 04/26/21 Lymphocytes (%) (Auto) 3.7 % 04/26/21 Monocytes # (Auto) 1.34 K/uL (0.11-0.59) H 04/26/21 Eosinophils # (Auto) 0.01 K/uL (0-0.5) 04/26/21 Immature Granulocyte % (Auto) 2.7 % 04/26/21 Neutrophils # (Auto) 18.69 K/uL (1.4-6.5) H 04/26/21 Lymphocytes # (Auto) 0.80 K/uL (1.2-3.4) L 04/26/21 Monocytes # (Auto) 1.34 K/uL (0.11-0.59) H 04/26/21 Eosinophils # (Auto) 0.01 K/uL (0-0.5) 04/26/21 Basophils # (Auto) 0.03 K/uL (0-0.2) 04/26/21 Immature Granulocyte # (Auto) 0.58 K/uL (0.00-0.02) H 04/26/21 Na 135 mmol/L (136-145) L 04/26/21 K 4.6 mmol/L (3.5-5.1) 04/26/21 Cl 97 mmol/L (98-107) L 04/26/21 CO2 30 mmol/L (21-32) 04/26/21 Anion Gap 8 (3-11) 04/26/21 BUN 61 mg/dl (6-23) H 04/26/21 Creatinine 2.14 mg/dl (0.6-1.4) H 04/26/21 Estimated GFR ( Amer) 39.5 ml/min 04/26/21 Estimated GFR (Non-Af Amer) 34.1 ml/min 04/26/21 BUN/Creatinine Ratio 28.5 (10-20) H 04/26/21 Glu 148 mg/dl (70-99(Fasting)) H 04/26/21 Ca 8.5 mg/dl (8.5-10.1) 04/26/21 Phosphorus Level 5.0 mg/dl (2.5-4.9) H 04/26/21 Mg 2.8 mg/dl (1.7-2.4) H 04/26/21 05:30 04/26/21 Calcium Level 8.5 mg/dl (8.5-10.1) 04/26/21 05:30 04/26/21 Prothromb Time International Ratio 1.1 (0.9-1.1) 04/25/21 11:47 04/25/21 Monty Test NA 04/26/21 03:57 04/26/21 Microbiology 04/25/21 10:40 Fungal Smear - Final Blood 04/24/21 17:15 Gram Stain - Final Sputum, Expectorated Sputum Culture - Preliminary Moderate normal barbara present, final report to follow. Diagnostic Findings (Past 24 Hours) Chest X-Ray 04/25/21 06:00 XR chest 1V portable CLINICAL HISTORY: intubation. Follow-up interstitial and alveolar opacity COMPARISON STUDY: 04/24/2021 TECHNIQUE: 1 view of the chest FINDINGS: Single frontal view of the chest demonstrates the cardiomediastinal silhouette to be within normal limits. ET tube and right subclavian catheter are unchanged. Enteric tube has been placed with its tip extending below the edge of the film and into the stomach. Compared to previous examination, diffuse interstitial and alveolar opacities are again seen bilaterally and unchanged. There is no evidence for pleural effusion. There is no evidence for vascular congestion. There is no acute osseous pathology. IMPRESSION: ET tube and right subclavian catheter unchanged. Enteric tube has been placed with its tip extending below the edge of the film and into the stomach. Bilateral interstitial and alveolar opacities are again seen and unchanged. ACT 112: Negative or not required by law. Electronically signed by: Valdo Marina M.D. 04/25/2021 9:56 AM KUB X-Ray 04/25/21 09:23 KUB HISTORY: confirm coresafe NGT placement COMPARISON: Abdomen and pelvis CT 03/25/2013. FINDINGS: The bowel gas pattern is unremarkable. There are no dilated loops of small bowel to suggest an obstruction. No renal calculi. No ureteral calculi. No pneumoperitoneum or pneumatosis. The feeding tube tip terminates in the gastric antrum. Partially visualized central venous catheter terminates at the distal SVC. Patchy bilateral airspace opacities persist. IMPRESSION: The feeding tube tip terminates at the expected location of the gastric antrum. ACT 112: Negative or not required by law. Electronically signed by: Torres Mchugh M.D. 04/25/2021 10:02 AM Venous Doppler Study 04/25/21 10:06 BILATERAL LOWER EXTREMITY VENOUS DOPPLER CLINICAL HISTORY: Covid. COMPARISON STUDY: No previous studies for comparison. TECHNIQUE: Sonography of the deep venous system of the bilateral lower extremities was performed. Compression and augmentation were evaluated. FINDINGS: Note is made of deep venous thrombus within the right popliteal and peroneal veins. There is also deep venous thrombus within the left popliteal vein as well as thrombus within superficial veins posterior to the left knee. IMPRESSION: 1. Deep venous thrombus within the right popliteal and right peroneal veins and deep venous thrombus within the left popliteal vein. 2. Thrombus within superficial veins posterior to the right knee. ACT 112: Negative or not required by law. Electronically signed by: Reynaldo Michel M.D. 04/25/2021 11:04 AM I & O Totals 24 Hours 04/25/21 04/26/21 04/27/21 06:59 06:59 06:59 Intake Total 1430.370 / 7965.204 9710.255 / 3308.255 Output Total 1625 / 1625 1265 / 1265 Balance -194.630 / -740.802 2400.255 / 2043.255 Cumulative 04/16/21 11:11 thru 04/26/21 06:00 Intake Total 13526.625 Output Total 60492 Balance -1802.375 RT Ventilator Mngmt (Last Documented) Ventilator Ordered Settings Ventilator Support Mode Assist Control 04/26/21 03:55 Respiratory Rate 32 04/26/21 03:55 Ventilator Tidal Volume 460 04/26/21 03:55 Setting Minute Ventilation 14.7 04/26/21 03:55 Positive End Expiratory 16 04/26/21 03:55 Pressure Fraction of Inspired Oxygen 80 04/26/21 03:55 Machine Comment weaned to 70% 04/25/21 11:30 Ventilator - PT Measurements Respiratory Rate 32 Exhaled Tidal Volume 460 Minute Ventilation 14.7 Peak Inspiratory Airway 38 Pressure Plateau Pressure 32 Respiratory Cycle Inspiratory: 1:2.1 Expiratory Ratio Inspiratory Phase Time 0.60 End-Tidal CO2 46 Static Lung Compliance 28.75 Dynamic Lung Compliance 20.91 Normal Static Lung Compliance 46.00 Patient Measurements Comment Patient supined Critical Care Time I have personally spent 50 minutes of critical care time in the direct management of this patient. This is a life/limb threatening event. This includes time spent evaluating patient, direct bedside care, chart review, placing orders, interpretation of diagnostic studies, discussion with consultants, patient, and/or family members regarding treatment decisions, as well as other required patient management activities. This time is exclusive of all separately billable procedures, and teaching time and separate from and in addition to any other critical care service time. Resident Activity Tracking Resident Involvement: Resident Care Provided Care Provided: Adult Hospital Medicine
--- NOTE | 2021-04-26 07:17 | XRay Report ---
XR chest 1V portable HISTORY: Shortness of breath. intubation COMPARISON: Chest 04/25/2021. FINDINGS: Endotracheal tube terminates 3.9 cm from the evelyn. Nasogastric tube terminates below the diaphragm. The tip is not included on this study. There are low lung volumes. No pneumothorax. No ple ural effusions. Hazy bilateral airspace opacities and interstitial thickening persists. The heart rem ains borderline enlarged. IMPRESSION: 1. Satisfactory support line placement. 2. No change in the bilateral airspace opacities likely representing a viral pneumonia. ACT 112: Negative or not required by law. Electronically signed by: Torres Mchugh M.D. 04/26/2021 7:15 AM
[2021-04-26] MEDS: dexAMETHasone 10 MG in SYRINGE 0 ML IV SCH (07:57)
[2021-04-26] MEDS: LACTULOSE SYRUP 20 GM/30 ML UDC PO SCH (07:57)
[2021-04-26] MEDS: DOCUSATE SODIUM/SENNA 50/8.6MG TAB PO SCH (07:59)
--- NOTE | 2021-04-26 09:59 | Billing Data ---
Date of Service April 26, 2021 Coding Level of Care Code Critical Care 1st - mins
--- NOTE | 2021-04-26 10:41 | Hospitalist Progress Note ---
Date of Service April 26, 2021 Assessment & Plan (1) Acute respiratory failure with hypoxia: Plan: Secondary to COVID-pneumonia. Evidence of cytokine storm with high level oxygen. Now vent dependent. Baricitinib DCd per ID Continue supportive care with oxygen. Continue supportive therapies. Empiric Full Dose Lovenox started, Remdesivir even though out of window. Talked him into being a full code, and now intubated. Possible trach soon (2) Pneumonia due to 2019 novel coronavirus: Plan: Plan as above. (3) HTN (hypertension): Plan: Controlled (4) DM type 2 (diabetes mellitus, type 2): Plan: -Hgb A1c 8.2 10/2020 -Hold oral agents and utilize Lantus and NovoLog per protocol hospitalized -Glycemic pharmacy consulted while receiving IV steroids -Currently euglycemic, cont current therapy. (5) FARNAZ on CPAP: Plan: -CPAP as per home settings, when weaned (6) Obesity: Plan: -BMI 36.4, elevates his risk of complications with covid-19. (7) Anxiety: Plan: Vented and sedated (8) DVT prophylaxis: Plan: SQ Full dose Lovenox Full code Dispo-ICU. ROS-Offers no History, on vent Physical Exam Gen-NAD, febrile, Tachycardic and Tachypneic. Head-NCAT, Anicteric Sclera, +ETT Neck-Supple, No JVD, No Thyromegaly, No Masses, No LAD, No Bruits Lungs-Clear to Auscultation Bilaterally, No Rales, No Rhonchi, No Wheezing, No Crepitus Chest-No S4, +S1, +S2, No S3, No Murmurs, No Rubs, No Gallops, No Ectopy Abdomen-Soft, Bowel Sounds Present, Non Tender, Obese, Non Distended, No Hepatomegaly, No Splenomegaly, No Palpable Masses, No Rebound, No Rigidity, No Guarding Musculoskeletal-NA Extremities-No Cyanosis, No Clubbing, No Edema Nuero- Non Focal Admission and Anticipated Discharge Date Admission Date: April 16, 2021 Subjective No acute events overnight. Now s/p tPA without complications thus far. Results & Data Results & Data ([facility]) Vital Signs (Past 12 Hours) Vital Signs Temp Pulse Resp BP Pulse Ox 04/26/21 08:00 93 H 04/26/21 07:29 93 H 32 H 92 04/26/21 07:00 38.3 C H 91 H 32 H 04/26/21 06:30 38.3 C H 91 H 32 H 91 04/26/21 06:00 38.4 C H 96 H 32 H 04/26/21 05:30 38.5 C H 97 H 32 H 04/26/21 05:00 38.5 C H 98 H 32 H 04/26/21 04:30 38.5 C H 98 H 32 H 04/26/21 04:00 38.5 C H 98 H 32 H 92 04/26/21 03:55 110 H 32 H 91 04/26/21 03:30 38.5 C H 98 H 32 H 04/26/21 03:00 38.6 C H 101 H 32 H 04/26/21 02:30 38.6 C H 103 H 32 H 04/26/21 02:00 38.7 C H 104 H 32 H 04/26/21 01:30 38.7 C H 105 H 32 H 04/26/21 01:00 38.7 C H 103 H 32 H 04/26/21 00:30 38.8 C H 106 H 32 H 04/26/21 00:00 38.8 C H 110 H 32 H 04/25/21 23:31 107 H 04/25/21 23:30 38.8 C H 107 H 32 H 04/25/21 23:00 38.8 C H 110 H 32 H 108/73 04/25/21 22:55 110 H 32 H 91 04/25/21 22:45 38.8 C H 110 H 32 H 108/73 Laboratory Results reviewed
[2021-04-26] MEDS: PANTOprazole 40 MG in SYRINGE 0 ML IV SCH (11:31)
--- NOTE | 2021-04-26 12:01 | Pharmacy Report ---
Pharmacy Glycemic Short Note 2 - Date of Service April 26, 2021 - Glycemic Short BSG Results (Last 24 hours): 04/25/21 04/25/21 04/25/21 11:33 12:42 13:40 Glucose POC Glucose POC Glucose (other) 262 H 239 H 228 H 04/25/21 04/25/21 04/25/21 14:27 15:36 16:33 Glucose POC Glucose POC Glucose (other) 224 H 215 H 202 H 04/25/21 04/25/21 04/25/21 16:41 17:55 19:03 Glucose 203 H POC Glucose POC Glucose (other) 227 H 217 H 04/25/21 04/25/21 04/25/21 20:22 21:30 21:37 Glucose 209 H POC Glucose POC Glucose (other) 231 H 215 H 04/25/21 04/26/21 04/26/21 22:52 00:09 01:25 Glucose POC Glucose POC Glucose (other) 182 H 173 H 150 H 04/26/21 04/26/21 04/26/21 02:36 04:11 05:30 Glucose 148 H POC Glucose POC Glucose (other) 156 H 132 H 04/26/21 04/26/21 04/26/21 05:39 09:04 11:15 Glucose POC Glucose 118 H 111 H POC Glucose (other) 153 H OUTPATIENT ANTIDIABETIC REGIMEN: * Metformin 1000 mg PO BID * Dulaglutide 3 mg SQ weekly on Thu * A1c: 9.2% (04/17/21) ASSESSMENT: 04/26: * Remains intubated, sedated and paralyzed. Norepi @ 0.05mcg/kg/min. Renal function steady with SCr ~ 2.1. * Erin @ [email or web address]. Dexamethasone 10mg daily continues. Proning X 16hr today. * BSGs have trended down to goal with insulin drip. Infusion running @ ~6units/hr the majority of the evening into today. Given most recent BSGs this AM 118 and 111, discussed with RN to empirically reduce drip rate by about 20% to 4.5 unit/hr w/ repeat BSG @ 1300. * Given numerous acute stressors, continue IV insulin infusion per protocol with Novolog (CR 3) to cover tube feeds. 04/25: * Patient required intubation last evening. This AM patient is intubated, sedated, paralyzed, receiving pressors (norepi @0.07mcg/kg/min), new ZEN, IV steroid dose increased, Peptamen tube feeds initiated last night however being changed to Novasource renal at "trickle" rates. New dx of DVTs, possible PE. IV thrombolysis planned followed by IV heparin infusion. * BSGs did climb overnight to mid-200s this AM. This is prior to receiving today's dose of IV steroid and changing to a carb heavy feeding. IV insulin infusion will be initiated per protocol, may also have added benefit in hyperkalemia 04/24 * Worsening resp distress noted overnight. Patient decompensated despite proning. Hospitalist notified, IV dexamethasone admin early. * Pt noted to be hypoglycemic overnight. BSGs recovered following IV D50. Not tolerating PO with breakfast this AM. * Withheld AM NPH due to recent hypo as well as poor PO and anticipated poor PO today. Will give reduced NPH dose this afternoon as BSGs climbing again. Will reeval NPH needs tomorrow AM. * Continue "severe" stress Novolog doses however decrease correctional insulin doses given HS and overnight 04/21: * Blood sugars continue to trend up with steroid throughout the day and then drop overnight * Tighten CF/CR AC and increase NPH to cover steroid effects * Loosen HS, and DC Lantus to prevent AM hypoglycemia 04/19: * Fasting improved with addition of 10 units of lantus, will continue scale for PM tonight * Continued same NPH dose (0.4 unit/kg adjbw) with dexamethasone and tightedn carb ratio, lunch BSG improved continue to monitor for additional changes PLAN FOR INPATIENT GLYCEMIC CONTROL: * Hold outpatient diabetes medications (metformin, Trulicity) * Begin IV insulin per protocol, goal range 110-180mg/dL * Basal insulin * d/c NPH * Bolus insulin * NovoLog Q 4 hrs to cover carbs in tube feeds. * Nutritional / Prandial insulin per carb ratio of 1 unit per 3 grams CHO delivered in continuous tube feeds PLAN FOR DISCHARGE: * HbA1c: 9.2% suggests poor outpatient glycemic control * Reasonable to continue metformin and Trulicity at discharge if no contraindications * Consider addition of second oral agent that would minimize weight gain/promote weight loss, such as SGLT2 inhibitor * Initial dosing of empagliflozin would be 10 mg PO daily * Alternatively, if patient agreeable to insulin, could consider once daily basal insulin (although, concern for insulin-induced weight gain)
[2021-04-26] MEDS: HEPARIN SODIUM/DEXTROSE 25,000 UNITS/500 ML BAG IV SCH (12:11)
[2021-04-26] MEDS: INSULIN REGULAR 250 UNITS in SODIUM CHLORIDE 0.9% 247.5 ML IV SCH (13:04)
[2021-04-26] MEDS: fentaNYL citrate 2,500 MCG/250 ML BAG IV SCH (14:22)
[2021-04-26 14:30] LABS: Partial Thromboplastin Ratio 1.5; Partial Thromboplastin Time 40.4 Seconds (21.0-31.0)
[2021-04-26 21:10] LABS: Partial Thromboplastin Ratio 1.5; Partial Thromboplastin Time 39.9 Seconds (21.0-31.0)
[2021-04-26] MEDS: MIDAZOLAM HCL 125 MG/250 ML BAG IV SCH (21:25)
[2021-04-27] MEDS: CISATRACURIUM BESYLATE 40 MG in DEXTROSE 5% 80 ML IV SCH ×9 (00:23→23:45)
[2021-04-27] MEDS: ARTIFICIAL TEARS OP OINT 3.5 GM TUBE OP SCH ×7 (00:24→23:51)
[2021-04-27] MEDS: INSULIN ASPART PER UNIT SC SCH ×6 (00:28→20:09)
[2021-04-27 03:30] LABS: Basophils # (auto) 0.02 K/uL (0-0.2); Basophils % (auto) 0.1 %; Eosinophils # (auto) 0.02 K/uL (0-0.5); Eosinophils % (auto) 0.1 %; Immature Granulocytes # (auto) 0.36 K/uL (0.00-0.02); Immature Granulocytes % (auto) 2.1 %; Lymphocytes # (auto) 1.55 K/uL (1.2-3.4); Lymphocytes % (auto) 8.9 %; Mean Corpuscular Hemoglobin 29.7 pg (25-34); Mean Corpuscular Hgb Conc 31.4 g/dL (32-36); Mean Corpuscular Volume 94.6 fL (80-100); Monocytes % (auto) 2.3 %; Neutrophils # (auto) 15.06 K/uL (1.4-6.5); Neutrophils % (auto) 86.5 %; Platelet Count 249 K/uL (130-400); RDW Coefficient of Variation 13.9 % (11.5-14.5); RDW Standard Deviation 48.3 fL (36.4-46.3); White Blood Count 17.41 K/uL (4.8-10.8)
[2021-04-27 03:42] LABS: Partial Thromboplastin Ratio 1.5; Partial Thromboplastin Time 38.2 Seconds (21.0-31.0)
[2021-04-27 03:48] LABS: BUN Creatinine Ratio 43.1 (10-20); Calcium 8.6 mg/dl (8.5-10.1); Creatinine Clr Calc Pharmacy 77.1 ml/min; Est GFR (African American) 63.8 ml/min; Magnesium 2.8 mg/dl (1.7-2.4); Phosphorus 4.3 mg/dl (2.5-4.9); Potassium 5.1 mmol/L (3.5-5.1)
[2021-04-27 03:49] LABS: iSTAT Art Bld Gas pCO2 Correct 62 mmHg (35-46); iSTAT Art Bld Gas pH Corrected 7.355 (7.35-7.45); iSTAT Arterial Blood Gas HCO3 35 meg/L (19-24); iSTAT Arterial Blood Gas pCO2 62 mmHg (35-46); iSTAT Arterial Blood Gas pH 7.36 (7.35-7.45); iSTAT Arterial Blood Gas pO2 78 mmHg (80-95); iSTAT Arterial Blood Gas pO2 C 78; iSTAT Carbon Dioxide 36 mmol/L (24-31); iSTAT FiO2 75 %; iSTAT Hematocrit 31 % (42-52); iSTAT Hemoglobin 10.5 g/dl (14.0-18.0); iSTAT Potassium 4.7 mmol/L (3.3-5.0); iSTAT Site Art Line; iSTAT Sodium 133 mmol/L (135-144)
[2021-04-27] MEDS: HEPARIN SODIUM/DEXTROSE 25,000 UNITS/500 ML BAG IV SCH (04:22)
--- NOTE | 2021-04-27 06:59 | Critical Care Progress Note ---
Date of Service April 27, 2021 Assessment & Plan (1) Anxiety: (2) Acute respiratory failure with hypoxia: (3) HTN (hypertension): (4) DM type 2 (diabetes mellitus, type 2): (5) Pneumonia due to 2019 novel coronavirus: (6) DVT prophylaxis: Plan: Reason Critically Ill: Acute hypoxic respiratory failure secondary to COVID-19 pneumonia PLAN: Neuro: Sedation: Versed Analgesia: Fentanyl Intermittent neuromuscular blockade: Rocuronium -Discussion with patient he would not want prolonged sedation nor prolonged mechanical ventilation. Plan for possible trach. However, patient had DVTs on BLE Doppler so will hold off for now Resp: Acute hypoxic respiratory failure -Intubation mechanical ventilation. After extensive discussion patient would opt for tracheostomy as opposed to 7 to 10 days of mechanical ventilation. -Do believe this is reasonable and the patient would likely not improve during that timeframe -Hold off on trach as pt has high O2 requirements - Proned 04/26-04/27 overnight, now supine -- plan to continue pronating CV: Hypotension -Hold amlodipine - On levophed gtt -- suspect may improve as sedation decreased Fluids/Renal: Electrolyte protocol Hyperkalemia now resolved Creatinine improving ID: DC remdesivir as pt out of window and has worsening renal function Finished course of Rocephin Afebrile since 04/26/21 1600 Blood cultures NGTD and fungal cultures pending Lactate 1.9 GI/Nutrition: OG in place -- continue trickle feeds but switch to renal formula NSS 500mL + Albumin 25% 50g IV 04/25/21 Alk phos elevated -- Lipase 21 Heme: DVT prophylaxis: Heparin gtt DC's in favor of therapeutic Lovenox now s/p tPA due to DVTs on Doppler with compromised breathing status Endocrine: ICU hyperglycemia protocol Increase dexamethasone from 6 to 10 mg for total of 10 days Continue insulin gtt with elevated BSG Vascular access: Right subclavian central venous access, right radial art line Code Status: Full code Disposition: ICU Admission and Anticipated Discharge Date Admission Date: April 16, 2021 Supervising Physician Co-Signing Physician Notes Dr. Flores was resident physician during care of patient. I separately evaluated patient for gallagher portions of the history and the exam. I was present during the critical portion of medical decision making, and I discussed the case with the resident. I generally agree with the findings and plan. Abdi F ratio less than 100 still has very high ventilator requirements precluding safe tracheostomy today. Transition from heparin which has routinely been subtherapeutic to Lovenox for ease of dosing and minimizing fluid administration. Continue current therapies including pronation and neuromuscular blockade given severity of hypoxia. Patient not candidate for tracheostomy at this point however he was agreeable and preferred early tracheostomy. Patient's Piedad updated [phone]. Discussed current status as well as probable anoxic injury should he suffer cardiac arrest. After discussion with the patient and his focus on quality of life if family feels DNR in event of cardiac arrest is appropriate I would be in agreement. Subjective No acute events overnight. Was deproned overnight, had mild nosebleed. Review of Systems Review of Systems: Unobtainable due to reduced consciousness Physical Exam Physical Exam: GENERAL: Sedated, intubated CHEST/LUNGS: CTAB A/P. No crackles, wheezes, rales, rhonchi. Decreased air movement bilaterally. HEART: Tachycardic, regular rhythm. No m/g/r. EXTREMITIES: No cyanosis, no clubbing, no edema SKIN: Warm and dry. No rashes or lesions. NEUROLOGIC: Unable to assess due to intubation/sedation Results & Data Results & Data ([facility]) Vital Signs (Past 12 Hours) Vital Signs Temp Pulse Resp BP Pulse Ox 04/27/21 04:16 115 H 32 H 93 04/27/21 04:00 69 04/27/21 02:00 37.2 C 82 32 H 95 04/27/21 01:30 37.2 C 84 32 H 04/27/21 01:00 37.2 C 87 28 H 04/27/21 00:30 37.3 C 85 32 H 96 04/27/21 00:00 37.3 C 86 32 H 96 04/26/21 23:30 37.3 C 81 32 H 95 04/26/21 23:00 37.3 C 54 L 32 H 94 04/26/21 22:50 94 H 32 H 95 04/26/21 22:30 37.3 C 90 32 H 96 04/26/21 22:00 37.3 C 88 32 H 95 04/26/21 21:30 37.3 C 87 32 H 95 04/26/21 21:00 37.3 C 87 32 H 102/71 94 04/26/21 20:30 37.4 C 94 H 32 H 95 04/26/21 20:00 37.4 C 92 H 32 H 94 04/26/21 19:30 37.4 C 95 H 32 H 94 04/26/21 19:28 94 H 32 H 95 04/26/21 19:00 37.4 C 91 H 32 H 94 Critical Care Results & Data Vital Signs (Past 12 Hours) Vital Signs Temp Pulse Resp BP Pulse Ox 04/27/21 04:16 115 H 32 H 93 04/27/21 04:00 69 04/27/21 02:00 37.2 C 82 32 H 95 04/27/21 01:30 37.2 C 84 32 H 95 04/27/21 01:00 37.2 C 87 28 H 95 04/27/21 00:30 37.3 C 85 32 H 96 04/27/21 00:00 37.3 C 86 32 H 96 04/26/21 23:30 37.3 C 81 32 H 95 04/26/21 23:00 37.3 C 54 L 32 H 94 04/26/21 22:50 94 H 32 H 95 04/26/21 22:30 37.3 C 90 32 H 96 04/26/21 22:00 37.3 C 88 32 H 95 04/26/21 21:30 37.3 C 87 32 H 95 04/26/21 21:00 37.3 C 87 32 H 102/71 94 04/26/21 20:30 37.4 C 94 H 32 H 95 04/26/21 20:00 37.4 C 92 H 32 H 94 04/26/21 19:30 37.4 C 95 H 32 H 94 04/26/21 19:28 94 H 32 H 95 04/26/21 19:00 37.4 C 91 H 32 H 94 Lab & Micro Results (Past 24 Hours) RBC 3.70 M/uL (4.7-6.1) L 04/27/21 WBC 17.41 K/uL (4.8-10.8) H 04/27/21 Hgb 11.0 g/dL (14.0-18.0) L 04/27/21 Hct 35.0 % (42-52) L 04/27/21 MCV 94.6 fL (80-100) 04/27/21 MCH 29.7 pg (25-34) 04/27/21 MCHC 31.4 g/dL (32-36) L 04/27/21 RDW Standard Deviation 48.3 fL (36.4-46.3) H 04/27/21 RDW Coefficient of Variation 13.9 % (11.5-14.5) 04/27/21 Plt Count 249 K/uL (130-400) 04/27/21 MPV 10.0 fL (7.4-10.4) 04/27/21 Neutrophils (%) (Auto) 86.5 % 04/27/21 Lymphocytes (%) (Auto) 8.9 % 04/27/21 Monocytes # (Auto) 0.40 K/uL (0.11-0.59) 04/27/21 Eosinophils # (Auto) 0.02 K/uL (0-0.5) 04/27/21 Immature Granulocyte % (Auto) 2.1 % 04/27/21 Neutrophils # (Auto) 15.06 K/uL (1.4-6.5) H 04/27/21 Lymphocytes # (Auto) 1.55 K/uL (1.2-3.4) 04/27/21 Monocytes # (Auto) 0.40 K/uL (0.11-0.59) 04/27/21 Eosinophils # (Auto) 0.02 K/uL (0-0.5) 04/27/21 Basophils # (Auto) 0.02 K/uL (0-0.2) 04/27/21 Immature Granulocyte # (Auto) 0.36 K/uL (0.00-0.02) H 04/27/21 Na 133 mmol/L (136-145) L 04/27/21 K 5.1 mmol/L (3.5-5.1) 04/27/21 Cl 96 mmol/L (98-107) L 04/27/21 CO2 33 mmol/L (21-32) H 04/27/21 Anion Gap 4 (3-11) 04/27/21 BUN 62 mg/dl (6-23) H 04/27/21 Creatinine 1.44 mg/dl (0.6-1.4) H 04/27/21 Estimated GFR ( Amer) 63.8 ml/min 04/27/21 Estimated GFR (Non-Af Amer) 55.0 ml/min 04/27/21 BUN/Creatinine Ratio 43.1 (10-20) H 04/27/21 Glu 149 mg/dl (70-99(Fasting)) H 04/27/21 Ca 8.6 mg/dl (8.5-10.1) 04/27/21 Phosphorus Level 4.3 mg/dl (2.5-4.9) 04/27/21 Mg 2.8 mg/dl (1.7-2.4) H 04/27/21 03:19 04/27/21 Calcium Level 8.6 mg/dl (8.5-10.1) 04/27/21 03:19 04/27/21 Monty Test NA 04/27/21 03:36 04/27/21 Microbiology 04/25/21 10:47 Aerobic Blood Culture - Preliminary Blood No growth in Aerobic bottle after 24 hours. Anaerobic Blood Culture - Preliminary No growth in Anaerobic bottle after 24 hours. 04/25/21 10:40 Aerobic Blood Culture - Preliminary Blood No growth in Aerobic bottle after 24 hours. Anaerobic Blood Culture - Preliminary No growth in Anaerobic bottle after 24 hours. 04/24/21 17:15 Gram Stain - Final Sputum, Expectorated Sputum Culture - Final Heavy normal barbara. Diagnostic Findings (Past 24 Hours) Chest X-Ray 04/26/21 06:00 XR chest 1V portable HISTORY: Shortness of breath. intubation COMPARISON: Chest 04/25/2021. FINDINGS: Endotracheal tube terminates 3.9 cm from the evelyn. Nasogastric tube terminates below the diaphragm. The tip is not included on this study. There are low lung volumes. No pneumothorax. No pleural effusions. Hazy bilateral airspace opacities and interstitial thickening persists. The heart remains borderline enlarged. IMPRESSION: 1. Satisfactory support line placement. 2. No change in the bilateral airspace opacities likely representing a viral pneumonia. ACT 112: Negative or not required by law. Electronically signed by: Torres Mchugh M.D. 04/26/2021 7:15 AM I & O Totals 24 Hours 04/25/21 04/26/21 04/27/21 06:59 06:59 06:59 Intake Total 1430.370 / 3872.354 0424.255 / 3308.255 4643.654 / 4643.654 Output Total 1625 / 1625 1265 / 1265 2165 / 2165 Balance -194.630 / -650.242 6906.255 / 2043.255 2478.654 / 2478.654 Cumulative 04/16/21 11:11 thru 04/27/21 06:49 Intake Total 67436.279 Output Total 67850 Balance 676.279 RT Ventilator Mngmt (Last Documented) Ventilator Ordered Settings Ventilator Support Mode Assist Control 04/27/21 04:16 Respiratory Rate 32 04/27/21 04:16 Ventilator Tidal Volume 460 04/27/21 04:16 Setting Minute Ventilation 14.7 04/27/21 04:16 Positive End Expiratory 16 04/27/21 04:16 Pressure Fraction of Inspired Oxygen 75 04/27/21 04:16 Peak Inspiratory Flow 61 04/26/21 15:58 Machine Comment prone 04/26/21 15:58 Ventilator - PT Measurements Respiratory Rate 32 Exhaled Tidal Volume 461 Minute Ventilation 14.7 Peak Inspiratory Airway 38 Pressure Plateau Pressure 32 Respiratory Cycle Inspiratory: 1:2.1 Expiratory Ratio Inspiratory Phase Time 0.60 End-Tidal CO2 43 Static Lung Compliance 28.81 Dynamic Lung Compliance 20.95 Normal Static Lung Compliance 46.00 Patient Measurements Comment PT PRONED AT THIS TIME Critical Care Time I have personally spent 40 minutes of critical care time in the direct ma nagement of this patient. This is a life/limb threatening event. This includes time spent evaluating patient, direct bedside care, chart review, placing orders, interpretation of diagnostic studies, discussion with consultants, patient, and/or family members regarding treatment decisions, as well as other required patient management activities. This time is exclusive of all separately billable procedures, and teaching time and separate from and in addition to any other critical care service time. Resident Activity Tracking Resident Involvement: Resident Care Provided Care Provided: Adult [facility] Medicine
--- NOTE | 2021-04-27 07:18 | XRay Report ---
SINGLE VIEW CHEST CLINICAL HISTORY: Respiratory failure. Covid pneumonia. FINDINGS: An AP, portable, upright chest radiograph is compared to study dated 04/26/2021. Correlation is made with chest CT dated 05/11/2010. The examination is degraded by portable technique and patient rotation. An endotracheal tube, an enteric tube, and a right subclavian central venous catheter are u nchanged in position. The cardiomediastinal silhouette is unremarkable. Extensive/multifocal airspace consolidation has not appreciably changed as compared to yesterday. No large pleural effusion or pne umothorax is seen. The bony thorax is grossly intact. IMPRESSION: 1. Stable lines and tubes. 2. Multifocal airspace consolidation has not appreciably changed from yesterday. ACT 112: Negative or not required by law. Electronically signed by: Brady Cam M.D. 04/27/2021 7:17 AM
[2021-04-27] MEDS ORDERED: ENOXAPARIN 1 MG/KG SQ SCH (07:30)
[2021-04-27] MEDS: NOREPINEPHRINE/D5W 8 MG/508 ML BAG IV SCH (07:34)
[2021-04-27] MEDS: dexAMETHasone 10 MG in SYRINGE 0 ML IV SCH (07:37)
[2021-04-27] MEDS: LACTULOSE SYRUP 20 GM/30 ML UDC PO SCH (07:37)
[2021-04-27] MEDS: DOCUSATE SODIUM/SENNA 50/8.6MG TAB PO SCH (07:39)
[2021-04-27] MEDS: fentaNYL citrate 2,500 MCG/250 ML BAG IV SCH ×2 (07:41→23:45)
[2021-04-27] MEDS: ENOXAPARIN INJ 120 MG/0.8 ML SYR SQ SCH ×2 (08:02→20:09)
--- NOTE | 2021-04-27 08:14 | Billing Data ---
Date of Service April 27, 2021 Coding Level of Care Code Critical Care 1st - mins
--- NOTE | 2021-04-27 09:26 | Hospitalist Progress Note ---
Date of Service April 27, 2021 Assessment & Plan (1) Acute respiratory failure with hypoxia: Plan: Secondary to COVID-pneumonia. Evidence of cytokine storm with high level oxygen. Now vent dependent. Baricitinib DCd per ID Empiric Full Dose Lovenox started, now intubated. Possible trach soon (2) Pneumonia due to 2019 novel coronavirus: Plan: Plan as above. (3) HTN (hypertension): Plan: pressors (4) DM type 2 (diabetes mellitus, type 2): Plan: -Hgb A1c 8.2 10/2020 -Lantus and NovoLog per protocol hospitalized (5) FARNAZ on CPAP: Plan: -CPAP as per home settings, when weaned (6) Obesity: Plan: -BMI 36.4 (7) Anxiety: Plan: Vented and sedated (8) DVT prophylaxis: Plan: SQ Full dose Lovenox Full code Dispo-ICU. ROS-Offers no History, on vent Physical Exam Gen-NAD, febrile, Tachycardic and Tachypneic. Head-NCAT, Anicteric Sclera, +ETT Neck-Supple, No JVD, No Thyromegaly, No Masses, No LAD, No Bruits Lungs-Clear to Auscultation Bilaterally, No Rales, No Rhonchi, No Wheezing, No Crepitus Chest-No S4, +S1, +S2, No S3, No Murmurs, No Rubs, No Gallops, No Ectopy Abdomen-Soft, Bowel Sounds Present, Non Tender, Obese, Non Distended, No Hepatomegaly, No Splenomegaly, No Palpable Masses, No Rebound, No Rigidity, No Guarding Musculoskeletal-NA Extremities-No Cyanosis, No Clubbing, No Edema Nuero- Non Focal Admission and Anticipated Discharge Date Admission Date: April 16, 2021 Subjective Per ICU team No acute events overnight. Was de-proned overnight, had mild nosebleed. I saw patient this morning he was supine and not in acute distress. Results & Data Results & Data ([facility]) Vital Signs (Past 12 Hours) Vital Signs Temp Pulse Resp BP Pulse Ox 04/27/21 08:00 73 98/53 L 04/27/21 04:16 115 H 32 H 93 04/27/21 04:00 69 04/27/21 02:00 37.2 C 82 32 H 95 04/27/21 01:30 37.2 C 84 32 H 95 04/27/21 01:00 37.2 C 87 28 H 95 04/27/21 00:30 37.3 C 85 32 H 96 04/27/21 00:00 37.3 C 86 32 H 96 04/26/21 23:30 37.3 C 81 32 H 95 04/26/21 23:00 37.3 C 54 L 32 H 94 04/26/21 22:50 94 H 32 H 95 04/26/21 22:30 37.3 C 90 32 H 96 04/26/21 22:00 37.3 C 88 32 H 95 04/26/21 21:30 37.3 C 87 32 H 95 Laboratory Results Reviewed
[2021-04-27] MEDS: PANTOprazole 40 MG in SYRINGE 0 ML IV SCH (12:25)
[2021-04-27] MEDS: INSULIN REGULAR 250 UNITS in SODIUM CHLORIDE 0.9% 247.5 ML IV SCH (14:46)
[2021-04-27] MEDS: MIDAZOLAM HCL 125 MG/250 ML BAG IV SCH (15:59)
[2021-04-28] MEDS: NOREPINEPHRINE/D5W 8 MG/508 ML BAG IV SCH (01:54)
[2021-04-28] MEDS: CISATRACURIUM BESYLATE 40 MG in DEXTROSE 5% 80 ML IV SCH ×9 (02:45→23:19)
[2021-04-28] MEDS: ARTIFICIAL TEARS OP OINT 3.5 GM TUBE OP SCH ×6 (02:45→23:20)
[2021-04-28 04:02] LABS: iSTAT Art Bld Gas pCO2 Correct 53 mmHg (35-46); iSTAT Art Bld Gas pH Corrected 7.421 (7.35-7.45); iSTAT Arterial Blood Gas HCO3 34 meg/L (19-24); iSTAT Arterial Blood Gas pCO2 53 mmHg (35-46); iSTAT Arterial Blood Gas pH 7.42 (7.35-7.45); iSTAT Arterial Blood Gas pO2 77 mmHg (80-95); iSTAT Arterial Blood Gas pO2 C 77; iSTAT Carbon Dioxide 36 mmol/L (24-31); iSTAT FiO2 50 %; iSTAT Hematocrit 31 % (42-52); iSTAT Hemoglobin 10.5 g/dl (14.0-18.0); iSTAT Potassium 4.7 mmol/L (3.3-5.0); iSTAT Site Art Line; iSTAT Sodium 134 mmol/L (135-144)
--- NOTE | 2021-04-28 04:10 | Communication Note ---
Date of Service: April 28, 2021 Procedure: Supination Maneuver Attending: Dr. Abrams APC: Jeromy Burgos PA-C Indication: Requiring lung recruitment intervention in the setting of advanced ARDS with poor lung compliance and oxygenation on standard ventilator settings. Patient requiring supination in the setting of advanced ARDS per imaging, ventilator requirements, and calculated P:F ratio. Appropriate staff was assembled including myself, Respiratory Therapy, and Nursing Staff. A time-out was completed verifying correct patient, time from recent pronation/supination, current ventilator settings, review of any prior issues during pronation/supination maneuvers. Patient was fully undressed as to be able to view all current IV sites, central venous access sites, arterial lines, endotracheal tube, Montes catheter, etc. After properly identifying/securing all lines, tubes, etc., the patient was ``papoosed using flat sheets. On my count, the patient was slid to the edge of the bed. After reevaluating all lines, tubes, etc., the patient was then placed on their side allowing for RT to maintain control of ET tube and ready for completion of Supination maneuver. Final check of all lines, tubes, etc. was completed by myself and nursing staff. Blood pressure, heart rhythm, and oxygen saturations were monitored for several minutes s/p maneuver. Discussion was held with patients RN and RT regarding ongoing management. Patient tolerated maneuver well. No immediate complications were noted. TIME SUPINE: 0400 I have personally spent 25 minutes of critical care time in the direct management of this patient. This is a life/limb threatening event. This includes time spent evaluating patient, direct bedside care, chart review, placing orders, interpretation of diagnostic studies, discussion with consultants, patient, and family members, as well as other required patient management activities. This time is exclusive of all separately billable procedures, and teaching time and separate from and in addition to any other critical care service time. Coding Level of Care Code Critical Care 1st 30-74 mins Time Spent (min) 25
[2021-04-28] MEDS: INSULIN ASPART PER UNIT SC SCH ×6 (05:16→19:40)
[2021-04-28 05:42] LABS: Basophils # (auto) 0.02 K/uL (0-0.2); Basophils % (auto) 0.1 %; Eosinophils # (auto) 0.04 K/uL (0-0.5); Eosinophils % (auto) 0.3 %; Hematocrit (blood only) 35.5 % (42-52); Hemoglobin 11.3 g/dL (14.0-18.0); Immature Granulocytes % (auto) 2.9 %; Lymphocytes # (auto) 1.76 K/uL (1.2-3.4); Lymphocytes % (auto) 12.8 %; Mean Corpuscular Hemoglobin 29.9 pg (25-34); Mean Corpuscular Hgb Conc 31.8 g/dL (32-36); Mean Corpuscular Volume 93.9 fL (80-100); Mean Platelet Volume 9.8 fL (7.4-10.4); Monocytes # (auto) 0.39 K/uL (0.11-0.59); Monocytes % (auto) 2.8 %; Neutrophils # (auto) 11.12 K/uL (1.4-6.5); Neutrophils % (auto) 81.1 %; Platelet Count 272 K/uL (130-400); RDW Coefficient of Variation 13.9 % (11.5-14.5); Red Blood Count 3.78 M/uL (4.7-6.1); White Blood Count 13.73 K/uL (4.8-10.8)
[2021-04-28 06:28] LABS: BUN Creatinine Ratio 59.1 (10-20); Calcium 8.6 mg/dl (8.5-10.1); Creatinine Clr Calc Pharmacy 119.1 ml/min; Est GFR (African American) 108.2 ml/min; Est GFR (Non-African American) 93.4 ml/min; Magnesium 2.4 mg/dl (1.7-2.4); Phosphorus 2.8 mg/dl (2.5-4.9); Potassium 4.5 mmol/L (3.5-5.1)
[2021-04-28] MEDS: LACTULOSE SYRUP 20 GM/30 ML UDC PO SCH (07:22)
[2021-04-28] MEDS: dexAMETHasone 10 MG in SYRINGE 0 ML IV SCH (07:22)
[2021-04-28] MEDS: DOCUSATE SODIUM/SENNA 50/8.6MG TAB PO SCH (07:22)
[2021-04-28] MEDS: ENOXAPARIN INJ 120 MG/0.8 ML SYR SQ SCH ×2 (07:23→19:28)
--- NOTE | 2021-04-28 09:08 | Critical Care Progress Note ---
Date of Service April 28, 2021 Assessment & Plan (1) Anxiety: (2) Acute respiratory failure with hypoxia: (3) HTN (hypertension): (4) DM type 2 (diabetes mellitus, type 2): (5) Pneumonia due to 2019 novel coronavirus: (6) DVT prophylaxis: Plan: Reason Critically Ill: Acute hypoxic respiratory failure secondary to COVID-19 pneumonia PLAN: Neuro: Sedation: Versed Analgesia: Fentanyl Intermittent neuromuscular blockade: Rocuronium -Patient preferred early tracheostomy if possible Resp: Acute hypoxic respiratory failure -Intubation mechanical ventilation. After extensive discussion patient would opt for tracheostomy as opposed to 7 to 10 days of mechanical ventilation. -Do believe this is reasonable and the patient would likely not improve during that timeframe -Hold off on trach as pt has high O2 requirements -Continue pronation therapy CV: Hypotension: Improved Fluids/Renal: Acute kidney injury: Resolved ID: Finished course of Rocephin Afebrile since 04/26/21 1600 Blood cultures NGTD and fungal cultures pending GI/Nutrition: OG in place -- continue trickle feeds can switch from renal formula to Peptamen Alk phos elevated -- Lipase 21 Heme: Acute DVT DVT prophylaxis: Therapeutic Lovenox Endocrine: ICU hyperglycemia protocol Increase dexamethasone from 6 to 10 mg for total of 10 days Continue insulin gtt with elevated BSG Vascular access: Right subclavian central venous access, right radial art line Code Status: Full code Disposition: ICU Updated Piedad: [phone] Admission and Anticipated Discharge Date Admission Date: April 16, 2021 Subjective No overnight events very minimal decrease in oxygen requirements Review of Systems Review of Systems: Unobtainable due to endotracheal tube Physical Exam Physical Exam: General: Sedated. nontoxic. GCS 3 TP Skin: Warm, dry, Head: Atraumatic Ears, nose, mouth and throat: airway obscured by endotracheal tube Cardiovascular: Normal peripheral perfusion Respiratory: Ventilator settings reviewed Gastrointestinal: Non distended Musculoskeletal: No deformity Results & Data Results & Data ([facility]) Vital Signs (Past 12 Hours) Vital Signs Temp Pulse Resp Pulse Ox 04/28/21 06:00 36.9 C 68 32 H 89 L 04/28/21 05:30 36.9 C 63 32 H 88 L 04/28/21 05:00 36.9 C 61 32 H 89 L 04/28/21 04:30 36.9 C 57 L 32 H 89 L 04/28/21 04:19 32 H 04/28/21 04:00 80 32 H 04/28/21 03:30 37.1 C 66 32 H 94 04/28/21 03:00 37.0 C 62 32 H 93 04/28/21 02:30 37.0 C 77 32 H 93 04/28/21 02:00 37.0 C 69 32 H 93 04/28/21 01:30 36.9 C 66 32 H 93 04/28/21 01:00 36.9 C 67 32 H 93 04/28/21 00:30 36.9 C 68 32 H 94 04/28/21 00:00 36.9 C 80 32 H 92 04/27/21 23:30 37.0 C 67 32 H 93 04/27/21 23:00 37.0 C 69 32 H 93 04/27/21 22:37 67 33 H 92 04/27/21 22:30 37.0 C 69 32 H 93 04/27/21 22:00 36.9 C 65 32 H 92 04/27/21 21:30 74 32 H 92 Critical Care Results & Data Vital Signs (Past 12 Hours) Vital Signs Temp Pulse Resp Pulse Ox 04/28/21 06:00 36.9 C 68 32 H 89 L 04/28/21 05:30 36.9 C 63 32 H 88 L 04/28/21 05:00 36.9 C 61 32 H 89 L 04/28/21 04:30 36.9 C 57 L 32 H 89 L 04/28/21 04:19 32 H 04/28/21 04:00 80 32 H 04/28/21 03:30 37.1 C 66 32 H 94 04/28/21 03:00 37.0 C 62 32 H 93 04/28/21 02:30 37.0 C 77 32 H 93 04/28/21 02:00 37.0 C 69 32 H 93 04/28/21 01:30 36.9 C 66 32 H 93 04/28/21 01:00 36.9 C 67 32 H 93 04/28/21 00:30 36.9 C 68 32 H 94 04/28/21 00:00 36.9 C 80 32 H 92 04/27/21 23:30 37.0 C 67 32 H 93 04/27/21 23:00 37.0 C 69 32 H 93 04/27/21 22:37 67 33 H 92 04/27/21 22:30 37.0 C 69 32 H 93 04/27/21 22:00 36.9 C 65 32 H 92 04/27/21 21:30 74 32 H 92 Lab & Micro Results (Past 24 Hours) RBC 3.78 M/uL (4.7-6.1) L 04/28/21 WBC 13.73 K/uL (4.8-10.8) H 04/28/21 Hgb 11.3 g/dL (14.0-18.0) L 04/28/21 Hct 35.5 % (42-52) L 04/28/21 MCV 93.9 fL (80-100) 04/28/21 MCH 29.9 pg (25-34) 04/28/21 MCHC 31.8 g/dL (32-36) L 04/28/21 RDW Standard Deviation 48.0 fL (36.4-46.3) H 04/28/21 RDW Coefficient of Variation 13.9 % (11.5-14.5) 04/28/21 Plt Count 272 K/uL (130-400) 04/28/21 MPV 9.8 fL (7.4-10.4) 04/28/21 Neutrophils (%) (Auto) 81.1 % 04/28/21 Lymphocytes (%) (Auto) 12.8 % 04/28/21 Monocytes # (Auto) 0.39 K/uL (0.11-0.59) 04/28/21 Eosinophils # (Auto) 0.04 K/uL (0-0.5) 04/28/21 Immature Granulocyte % (Auto) 2.9 % 04/28/21 Neutrophils # (Auto) 11.12 K/uL (1.4-6.5) H 04/28/21 Lymphocytes # (Auto) 1.76 K/uL (1.2-3.4) 04/28/21 Monocytes # (Auto) 0.39 K/uL (0.11-0.59) 04/28/21 Eosinophils # (Auto) 0.04 K/uL (0-0.5) 04/28/21 Basophils # (Auto) 0.02 K/uL (0-0.2) 04/28/21 Immature Granulocyte # (Auto) 0.40 K/uL (0.00-0.02) H 04/28/21 Na 134 mmol/L (136-145) L 04/28/21 K 4.5 mmol/L (3.5-5.1) 04/28/21 Cl 97 mmol/L (98-107) L 04/28/21 CO2 32 mmol/L (21-32) 04/28/21 Anion Gap 5 (3-11) 04/28/21 BUN 55 mg/dl (6-23) H 04/28/21 Creatinine 0.93 mg/dl (0.6-1.4) 04/28/21 Estimated GFR ( Amer) 108.2 ml/min 04/28/21 Estimated GFR (Non-Af Amer) 93.4 ml/min 04/28/21 BUN/Creatinine Ratio 59.1 (10-20) H 04/28/21 Glu 105 mg/dl (70-99(Fasting)) H 04/28/21 Ca 8.6 mg/dl (8.5-10.1) 04/28/21 Phosphorus Level 2.8 mg/dl (2.5-4.9) 04/28/21 Mg 2.4 mg/dl (1.7-2.4) 04/28/21 04:47 04/28/21 Calcium Level 8.6 mg/dl (8.5-10.1) 04/28/21 04:47 04/28/21 Monty Test NA 04/28/21 03:48 04/28/21 Microbiology 04/25/21 10:47 Aerobic Blood Culture - Preliminary Blood No growth in Aerobic bottle after 48 hours. Anaerobic Blood Culture - Preliminary No growth in Anaerobic bottle after 48 hours. 04/25/21 10:40 Aerobic Blood Culture - Preliminary Blood No growth in Aerobic bottle after 48 hours. Anaerobic Blood Culture - Preliminary No growth in Anaerobic bottle after 48 hours. I & O Totals 24 Hours 04/27/21 04/28/21 04/29/21 06:59 06:59 06:59 Intake Total 4643.654 / 4643.654 2089.349 / 2089.349 72.115 / 72.115 Output Total 2165 / 2165 1974 Balance 2478.654 / 2478.654 114.349 / 114.349 72.115 / 72.115 Cumulative 04/16/21 11:11 thru 04/28/21 08:34 Intake Total 84816.743 Output Total 86660 Balance 862.743 RT Ventilator Mngmt (Last Documented) Ventilator Ordered Settings Ventilator Support Mode Assist Control 04/27/21 22:37 Respiratory Rate 32 04/28/21 06:00 Ventilator Tidal Volume 460 04/28/21 04:19 Setting Minute Ventilation 14.7 04/27/21 22:37 Positive End Expiratory 14 04/28/21 04:19 Pressure Fraction of Inspired Oxygen 50 04/28/21 04:19 Peak Inspiratory Flow 61 04/27/21 15:56 Machine Comment SUPINATED 04/28/21 04:19 Ventilator - PT Measurements Respiratory Rate 32 Exhaled Tidal Volume 461 Minute Ventilation 14.7 Peak Inspiratory Airway 36 Pressure Plateau Pressure 33 Respiratory Cycle Inspiratory: 1:2.1 Expiratory Ratio Inspiratory Phase Time 0.6 End-Tidal CO2 30 Static Lung Compliance 27.06 Dynamic Lung Compliance 23.05 Normal Static Lung Compliance 46.00 Patient Measurements Comment SUPINE at 0400 Coding Level of Care Code Critical Care 1st 30-74 mins Diagnoses Anxiety F41.9 Acute respiratory failure with hypoxia J96.01 HTN (hypertension) I10 DM type 2 (diabetes mellitus, type 2) E11.9 Pneumonia due to 2019 novel coronavirus U07.1; J12.82 DVT prophylaxis Z29.9
--- NOTE | 2021-04-28 09:26 | Hospitalist Progress Note ---
Date of Service April 28, 2021 Assessment & Plan (1) Acute respiratory failure with hypoxia: Plan: Secondary to COVID-pneumonia. Evidence of cytokine storm with high level oxygen. Now vent dependent. Baricitinib DCd per ID Empiric Full Dose Lovenox, intubated. Possible trach soon (2) Pneumonia due to 2019 novel coronavirus: Plan: Plan as above. (3) HTN (hypertension): Plan: pressors (4) DM type 2 (diabetes mellitus, type 2): Plan: -Hgb A1c 8.2 10/2020 -Lantus and NovoLog per protocol hospitalized (5) FARNAZ on CPAP: Plan: -CPAP as per home settings, when weaned (6) Obesity: Plan: -BMI 36.4 (7) Anxiety: Plan: Vented and sedated (8) DVT prophylaxis: Plan: SQ Full dose Lovenox Full code Dispo-ICU. ROS-Offers no History, on vent Physical Exam Gen-NAD, febrile, Tachycardic and Tachypneic. Supine Head-NCAT, Anicteric Sclera, +ETT Neck-Supple, No JVD, No Thyromegaly, No Masses, No LAD, No Bruits Lungs-Clear to Auscultation Bilaterally, No Rales, No Rhonchi, No Wheezing, No Crepitus Chest-No S4, +S1, +S2, No S3, No Murmurs, No Rubs, No Gallops, No Ectopy Abdomen-Soft, Bowel Sounds Present, Non Tender, Obese, Non Distended, No Hepatomegaly, No Splenomegaly, No Palpable Masses, No Rebound, No Rigidity, No Guarding Musculoskeletal-NA Extremities-No Cyanosis, No Clubbing, No Edema Nuero- Non Focal Admission and Anticipated Discharge Date Admission Date: April 16, 2021 Subjective No overnight events very minimal decrease in oxygen requirements, about to be proned Results & Data Results & Data ([facility]) Vital Signs (Past 12 Hours) Vital Signs Temp Pulse Resp Pulse Ox 04/28/21 06:00 36.9 C 68 32 H 89 L 04/28/21 05:30 36.9 C 63 32 H 88 L 04/28/21 05:00 36.9 C 61 32 H 89 L 04/28/21 04:30 36.9 C 57 L 32 H 89 L 04/28/21 04:19 32 H 04/28/21 04:00 80 32 H 04/28/21 03:30 37.1 C 66 32 H 94 04/28/21 03:00 37.0 C 62 32 H 93 04/28/21 02:30 37.0 C 77 32 H 93 04/28/21 02:00 37.0 C 69 32 H 93 04/28/21 01:30 36.9 C 66 32 H 93 04/28/21 01:00 36.9 C 67 32 H 04/28/21 00:30 36.9 C 68 32 H 94 04/28/21 00:00 36.9 C 80 32 H 92 04/27/21 23:30 37.0 C 67 32 H 04/27/21 23:00 37.0 C 69 32 H 04/27/21 22:37 67 33 H 92 04/27/21 22:30 37.0 C 69 32 H 93 04/27/21 22:00 36.9 C 65 32 H 92 04/27/21 21:30 74 32 H 92 Laboratory Results reviewed
--- NOTE | 2021-04-28 10:55 | XRay Report ---
XR chest 1V portable CLINICAL HISTORY: f/u TECHNIQUE: Single frontal radiograph of the chest was obtained. Comparison: Comparison is made to chest one view 04/27/2021 FINDINGS: Lines and tubes are stable. The cardiomediastinal silhouette is stable. Multifocal airspace opacities are seen. No evidence of pleural effusion or pneumothorax. IMPRESSION: Multifocal airspace opacities are stable to minimally improved from prior exam. ACT 112: Negative or not required by law. Electronically signed by: Sanchez Guillen M.D. 04/28/2021 10:54 AM
[2021-04-28] MEDS: PANTOprazole 40 MG in SYRINGE 0 ML IV SCH (11:20)
[2021-04-28] MEDS: MIDAZOLAM HCL 125 MG/250 ML BAG IV SCH (13:10)
[2021-04-28] MEDS: fentaNYL citrate 2,500 MCG/250 ML BAG IV SCH (14:30)
[2021-04-29] MEDS: NOREPINEPHRINE/D5W 8 MG/508 ML BAG IV SCH (02:00)
[2021-04-29] MEDS: CISATRACURIUM BESYLATE 40 MG in DEXTROSE 5% 80 ML IV SCH ×4 (02:00→12:07)
[2021-04-29] MEDS: INSULIN ASPART PER UNIT SC SCH ×6 (02:09→20:41)
[2021-04-29 03:21] LABS: iSTAT Arterial Blood Gas HCO3 36 meg/L (19-24); iSTAT Arterial Blood Gas pCO2 57 mmHg (35-46); iSTAT Arterial Blood Gas pH 7.41 (7.35-7.45); iSTAT Arterial Blood Gas pO2 64 mmHg (80-95); iSTAT Carbon Dioxide 38 mmol/L (24-31); iSTAT FiO2 45 %; iSTAT Site Art Line
[2021-04-29] MEDS: ARTIFICIAL TEARS OP OINT 3.5 GM TUBE OP SCH ×5 (04:27→17:34)
[2021-04-29 04:49] LABS: Basophils # (auto) 0.03 K/uL (0-0.2); Basophils % (auto) 0.2 %; Eosinophils # (auto) 0.04 K/uL (0-0.5); Eosinophils % (auto) 0.3 %; Hematocrit (blood only) 35.9 % (42-52); Hemoglobin 11.3 g/dL (14.0-18.0); Immature Granulocytes # (auto) 0.55 K/uL (0.00-0.02); Immature Granulocytes % (auto) 3.9 %; Lymphocytes # (auto) 1.84 K/uL (1.2-3.4); Mean Corpuscular Hemoglobin 29.5 pg (25-34); Mean Corpuscular Hgb Conc 31.5 g/dL (32-36); Mean Corpuscular Volume 93.7 fL (80-100); Monocytes # (auto) 0.29 K/uL (0.11-0.59); Neutrophils # (auto) 11.44 K/uL (1.4-6.5); Neutrophils % (auto) 80.6 %; Platelet Count 270 K/uL (130-400); RDW Coefficient of Variation 13.9 % (11.5-14.5); RDW Standard Deviation 47.4 fL (36.4-46.3); Red Blood Count 3.83 M/uL (4.7-6.1); White Blood Count 14.19 K/uL (4.8-10.8)
[2021-04-29 05:11] LABS: BUN Creatinine Ratio 57.9 (10-20); Calcium 8.6 mg/dl (8.5-10.1); Creatinine Clr Calc Pharmacy 145.7 ml/min; Est GFR (African American) 120.7 ml/min; Est GFR (Non-African American) 104.2 ml/min; Magnesium 2.1 mg/dl (1.7-2.4); Potassium 4.7 mmol/L (3.5-5.1)
[2021-04-29] MEDS: fentaNYL citrate 2,500 MCG/250 ML BAG IV SCH ×3 (06:10→20:49)
[2021-04-29] MEDS: MIDAZOLAM HCL 125 MG/250 ML BAG IV SCH ×2 (06:10→10:15)
--- NOTE | 2021-04-29 07:01 | XRay Report ---
XR chest 1V portable HISTORY: 51 years-old Male f/u acute respiratory failure COMPARISON: 04/28/2021 TECHNIQUE: Portable AP view of the chest FINDINGS: Endotracheal tube overlies the midline, 4 cm superior to the evelyn. Right IJ central venous catheter distal tip overlies the right atrium. Cardiac silhouette is enlarged. No pneumothorax. Trace right p leural effusion suggested. Bilateral reticular interstitial opacities redemonstrated along with ill-d efined bibasilar predominant airspace densities. There is no significant change from prior. Degenerat madelaine changes of the shoulders and spine. IMPRESSION: 1. Lines and tubes as above. 2. Unchanged mixed interstitial and alveolar opacities. ACT 112: Negative or not required by law. The above report was generated using voice recognition software. It may contain grammatical, syntax o r spelling errors. Electronically signed by: Genaro Pizarro M.D. 04/29/2021 7:00 AM
[2021-04-29] MEDS: LACTULOSE SYRUP 20 GM/30 ML UDC PO SCH (08:24)
[2021-04-29] MEDS: ENOXAPARIN INJ 120 MG/0.8 ML SYR SQ SCH ×2 (08:24→20:42)
[2021-04-29] MEDS: dexAMETHasone 10 MG in SYRINGE 0 ML IV SCH (08:28)
[2021-04-29] MEDS: DOCUSATE SODIUM/SENNA 50/8.6MG TAB PO SCH (08:28)
--- NOTE | 2021-04-29 09:00 | Hospitalist Progress Note ---
Date of Service April 29, 2021 Assessment & Plan (1) Acute respiratory failure with hypoxia: Plan: Secondary to COVID-pneumonia. Evidence of cytokine storm with high level oxygen. Now vent dependent. Empiric Full Dose Lovenox, intubated. Possible trach soon (2) Pneumonia due to 2019 novel coronavirus: Plan: Plan as above. (3) HTN (hypertension): Plan: pressors (4) DM type 2 (diabetes mellitus, type 2): Plan: -Hgb A1c 8.2 10/2020 -Lantus and NovoLog per protocol hospitalized (5) FARNAZ on CPAP: Plan: -CPAP as per home settings, when weaned (6) Obesity: Plan: -BMI 36.4 (7) Anxiety: Plan: Vented and sedated (8) DVT prophylaxis: Plan: SQ Full dose Lovenox Full code Dispo-ICU. ROS-Offers no History, on vent Physical Exam Gen-NAD, febrile, Tachycardic and Tachypneic. Supine Head-NCAT, Anicteric Sclera, +ETT Neck-Supple, No JVD, No Thyromegaly, No Masses, No LAD, No Bruits Lungs-Clear to Auscultation Bilaterally, No Rales, No Rhonchi, No Wheezing, No Crepitus Chest-No S4, +S1, +S2, No S3, No Murmurs, No Rubs, No Gallops, No Ectopy Abdomen-Soft, Bowel Sounds Present, Non Tender, Obese, Non Distended, No Hepatomegaly, No Splenomegaly, No Palpable Masses, No Rebound, No Rigidity, No Guarding Musculoskeletal-NA Extremities-No Cyanosis, No Clubbing, No Edema Nuero- Non Focal Admission and Anticipated Discharge Date Admission Date: April 16, 2021 Subjective No overnight events very minimal decrease in oxygen requirements, about to be proned Results & Data Results & Data ([facility]) Vital Signs (Past 12 Hours) Vital Signs Temp Pulse Resp BP Pulse Ox 04/29/21 07:47 64 32 H 89 L 04/29/21 03:45 62 86 L 04/29/21 02:50 60 32 H 89 L 04/29/21 00:00 163/65 H 04/28/21 23:00 36.9 C 59 L 32 H 89 L 04/28/21 22:41 62 32 H 89 L 04/28/21 22:00 37.0 C 62 32 H 89 L 04/28/21 21:00 37.0 C 58 L 32 H 88 L
[2021-04-29] MEDS ORDERED: VECURONIUM BROMIDE 10 MG VIAL IV ONE (09:23)
[2021-04-29] MEDS ORDERED: VECURONIUM BROMIDE 10 MG VIAL IV STA (09:24)
[2021-04-29] MEDS ORDERED: STAT IV Infusion **Titration per Protocol STA (10:00)
[2021-04-29] MEDS ORDERED: PROPOFOL BOLUS FROM BAG IV PRN (10:00)
[2021-04-29] MEDS ORDERED: DOCUSATE SODIUM/SENNA 50/8.6MG TAB PO ONE (10:30)
[2021-04-29] MEDS: propofoL 1,000 MG/100 ML VIAL IV SCH ×2 (10:46→16:24)
[2021-04-29] MEDS: POLYETHYLENE (MIRALAX) 17 GM PACK PO SCH (10:46)
[2021-04-29] MEDS: PANTOprazole 40 MG in SYRINGE 0 ML IV SCH (10:46)
[2021-04-29 11:47] LABS: iSTAT Art Bld Gas pCO2 Correct 62 mmHg (35-46); iSTAT Art Bld Gas pH Corrected 7.363 (7.35-7.45); iSTAT Arterial Blood Gas HCO3 35 meg/L (19-24); iSTAT Arterial Blood Gas pCO2 61 mmHg (35-46); iSTAT Arterial Blood Gas pH 7.37 (7.35-7.45); iSTAT Arterial Blood Gas pO2 67 mmHg (80-95); iSTAT Arterial Blood Gas pO2 C 69; iSTAT Carbon Dioxide 37 mmol/L (24-31); iSTAT FiO2 60 %; iSTAT Hematocrit 34 % (42-52); iSTAT Hemoglobin 11.6 g/dl (14.0-18.0); iSTAT Potassium 4.9 mmol/L (3.3-5.0); iSTAT Site Art Line; iSTAT Sodium 135 mmol/L (135-144)
[2021-04-29] MEDS: TUBE FEEDING WATER FLUSH GT SCH ×3 (12:05→20:43)
[2021-04-29] MEDS: INSULIN REGULAR 250 UNITS in SODIUM CHLORIDE 0.9% 247.5 ML IV SCH ×2 (12:06→17:34)
--- NOTE | 2021-04-29 12:31 | Pharmacy Report ---
Pharmacy Glycemic Short Note 2 - Date of Service April 29, 2021 - Glycemic Short BSG Results (Last 24 hours): 04/28/21 04/28/21 04/28/21 12:29 14:03 17:40 Glucose POC Glucose 175 H 172 H 176 H 04/28/21 04/29/21 04/29/21 19:34 02:05 04:32 Glucose 146 H POC Glucose 169 H 139 H 04/29/21 09:51 Glucose POC Glucose 122 H OUTPATIENT ANTIDIABETIC REGIMEN: * Metformin 1000 mg PO BID * Dulaglutide 3 mg SQ weekly on Thu * A1c: 9.2% (04/17/21) ASSESSMENT: 04/28: * Remains intubated, sedated, paralyzed and on pressors. * TFs changes to Peptamen today and patient remains on IV dex. * Insulin infusion still running at ~4 units/hr. Given numerous acute stressors, continue IV insulin infusion per protocol with Novolog (CR 3) to cover tube feeds. 04/26: * Remains intubated, sedated and paralyzed. Norepi @ 0.05mcg/kg/min. Renal function steady with SCr ~ 2.1. * Novasource @ trickle. Dexamethasone 10mg daily continues. Proning X 16hr today. * BSGs have trended down to goal with insulin drip. Infusion running @ ~6units/hr the majority of the evening into today. Given most recent BSGs this AM 118 and 111, discussed with RN to empirically reduce drip rate by about 20% to 4.5 unit/hr w/ repeat BSG @ 1300. * Given numerous acute stressors, continue IV insulin infusion per protocol with Novolog (CR 3) to cover tube feeds. 04/25: * Patient required intubation last evening. This AM patient is intubated, sedated, paralyzed, receiving pressors (norepi @0.07mcg/kg/min), new ZEN, IV steroid dose increased, Peptamen tube feeds initiated last night however being changed to Novasource renal at "trickle" rates. New dx of DVTs, possible PE. IV thrombolysis planned followed by IV heparin infusion. * BSGs did climb overnight to mid-200s this AM. This is prior to receiving today's dose of IV steroid and changing to a carb heavy feeding. IV insulin infusion will be initiated per protocol, may also have added benefit in hyperkalemia 04/24 * Worsening resp distress noted overnight. Patient decompensated despite proning. Hospitalist notified, IV dexamethasone admin early. * Pt noted to be hypoglycemic overnight. BSGs recovered following IV D50. Not tolerating PO with breakfast this AM. * Withheld AM NPH due to recent hypo as well as poor PO and anticipated poor PO today. Will give reduced NPH dose this afternoon as BSGs climbing again. Will reeval NPH needs tomorrow AM. * Continue "severe" stress Novolog doses however decrease correctional insulin doses given HS and overnight 04/21: * Blood sugars continue to trend up with steroid throughout the day and then drop overnight * Tighten CF/CR AC and increase NPH to cover steroid effects * Loosen HS, and DC Lantus to prevent AM hypoglycemia 04/19: * Fasting improved with addition of 10 units of lantus, will continue scale for PM tonight * Continued same NPH dose (0.4 unit/kg adjbw) with dexamethasone and tightedn carb ratio, lunch BSG improved continue to monitor for additional changes PLAN FOR INPATIENT GLYCEMIC CONTROL: * Hold outpatient diabetes medications (metformin, Trulicity) * Continue IV insulin per protocol, goal range 110-180mg/dL * Bolus insulin * NovoLog Q 4 hrs to cover carbs in tube feeds. * Nutritional / Prandial insulin per carb ratio of 1 unit per 3 grams CHO delivered in continuous tube feeds PLAN FOR DISCHARGE: * HbA1c: 9.2% suggests poor outpatient glycemic control * Reasonable to continue metformin and Trulicity at discharge if no contraindications * Consider addition of second oral agent that would minimize weight gain/promote weight loss, such as SGLT2 inhibitor * Initial dosing of empagliflozin would be 10 mg PO daily * Alternatively, if patient agreeable to insulin, could consider once daily basal insulin (although, concern for insulin-induced weight gain)
[2021-04-29] MEDS: PEPTAMEN INTENSE VHP 1.0 CAL 1,000 ML BAG GT SCH (12:32)
--- NOTE | 2021-04-29 13:54 | Critical Care Progress Note ---
Date of Service April 29, 2021 Assessment & Plan (1) Acute respiratory failure with hypoxia: (2) Pneumonia due to 2019 novel coronavirus: (3) Obesity: (4) Anxiety: (5) DVT of axillary vein, acute bilateral: Plan: Reason Critically Ill: Acute hypoxic respiratory failure secondary to COVID-19 pneumonia PLAN: Neuro: Sedation: Versed, propofol added 04/29 to decrease versed and fentanyl. Will need to keep an eye on trigs Analgesia: Fentanyl Intermittent neuromuscular blockade: vec/lj -Patient preferred early tracheostomy if possible Resp: Acute hypoxic respiratory failure -Intubation mechanical ventilation. After extensive discussion patient would opt for tracheostomy as opposed to 7 to 10 days of mechanical ventilation. -Do believe this is reasonable and the patient would likely not improve during that timeframe -Hold off on trach as pt has high O2 requirements -Poor response to pronation. Will hold on further pronation -crp trending down, decrease decadron CV: Hypotension: Improved Fluids/Renal: Acute kidney injury: Resolved ID: Finished course of Rocephin Low grade fever today. Will trend. Blood cultures NGTD and fungal cultures ngtd GI/Nutrition: Advance TF as tolerated Continue bowel regimen Protonix daily Heme: Acute DVT s/p tpa earlier in hospital course DVT prophylaxis: Therapeutic Lovenox Endocrine: ICU hyperglycemia protocol Will decrease decadron to 6 mg daily Continue insulin gtt with elevated BSG Vascular access: Right subclavian central venous access, right radial art line Code Status: Full code Disposition: ICU CRITICAL CARE TIME - I have personally spent 44 minutes of critical care time in the direct management of this patient. This is a life/limb threatening event. This includes time spent evaluating patient, direct bedside care, chart review, placing orders, interpretation of diagnostic studies, discussion with consultants, patient, and family members, as well as other required patient management activities. This time is exclusive of all separately billable procedures, and teaching time and separate from and in addition to any other critical care service time. Admission and Anticipated Discharge Date Admission Date: April 16, 2021 Subjective Patient seen and examined. Remains on the ventilator with high FiO2 and PEEP. Wean off neuromuscular blockade, but required a bolus dose of vecuronium due to ventilator dyssynchrony. Hemodynamically stable. Review of Systems Review of Systems: Unobtainable due to endotracheal tube Physical Exam Physical Exam: General: Sedated. nontoxic. GCS 3 TP Skin: Warm, dry, Head: Atraumatic Ears, nose, mouth and throat: airway obscured by endotracheal tube Cardiovascular: Normal peripheral perfusion Respiratory: Ventilator settings reviewed mildly tachypnea. Coarse lung sounds. Gastrointestinal: Non distended Musculoskeletal: No deformity Results & Data Results & Data ([facility]) Vital Signs (Past 12 Hours) Vital Signs Temp Pulse Resp BP Pulse Ox 04/29/21 12:00 37.6 C H 66 31 H 99/63 L 90 04/29/21 11:00 37.4 C 70 30 H 98/63 L 88 L 04/29/21 10:45 64 34 H 89 L 04/29/21 10:30 37.3 C 67 33 H 106/69 87 L 04/29/21 10:00 37.3 C 69 32 H 103/66 86 L 04/29/21 09:00 37.0 C 69 32 H 04/29/21 08:00 37.1 C 60 32 H 124/60 89 L 04/29/21 07:47 64 32 H 89 L 04/29/21 07:00 37.0 C 61 32 H 96 04/29/21 06:45 37.1 C 63 32 H 96 04/29/21 03:45 62 86 L 04/29/21 02:50 60 32 H 89 L vital signs, labs and imaging reviewed Coding Level of Care Code Critical Care 1st 30-74 mins Diagnoses Acute respiratory failure with hypoxia J96.01 Pneumonia due to 2019 novel coronavirus U07.1; J12.82 Obesity E66.9 Anxiety F41.9 DVT of axillary vein, acute bilateral I82.A13 Time Spent (min) 44
[2021-04-30] MEDS: NOREPINEPHRINE/D5W 8 MG/508 ML BAG IV SCH (02:17)
[2021-04-30] MEDS: INSULIN ASPART PER UNIT SC SCH ×6 (02:18→20:52)
[2021-04-30] MEDS: TUBE FEEDING WATER FLUSH GT SCH ×6 (02:18→20:44)
[2021-04-30 04:44] LABS: Hematocrit (blood only) 35.5 % (42-52); Hemoglobin 11.3 g/dL (14.0-18.0); Mean Corpuscular Hemoglobin 30.1 pg (25-34); Mean Corpuscular Hgb Conc 31.8 g/dL (32-36); Mean Corpuscular Volume 94.4 fL (80-100); Platelet Count 273 K/uL (130-400); RDW Coefficient of Variation 14.1 % (11.5-14.5); RDW Standard Deviation 48.4 fL (36.4-46.3); Red Blood Count 3.76 M/uL (4.7-6.1); White Blood Count 13.61 K/uL (4.8-10.8)
[2021-04-30 05:09] LABS: Calcium 8.9 mg/dl (8.5-10.1); Creatinine Clr Calc Pharmacy 146.9 ml/min; Est GFR (African American) 121.4 ml/min; Est GFR (Non-African American) 104.7 ml/min; Magnesium 2.2 mg/dl (1.7-2.4); Phosphorus 3.1 mg/dl (2.5-4.9); Potassium 4.9 mmol/L (3.5-5.1)
[2021-04-30 05:27] LABS: Basophils # (auto) 0.04 K/uL (0-0.2); Basophils % (auto) 0.3 %; Eosinophils # (auto) 0.04 K/uL (0-0.5); Eosinophils % (auto) 0.3 %; Immature Granulocytes # (auto) 0.71 K/uL (0.00-0.02); Immature Granulocytes % (auto) 5.2 %; Lymphocytes # (auto) 1.88 K/uL (1.2-3.4); Lymphocytes % (auto) 13.8 %; Monocytes # (auto) 0.51 K/uL (0.11-0.59); Monocytes % (auto) 3.7 %; Neutrophils # (auto) 10.43 K/uL (1.4-6.5); Neutrophils % (auto) 76.7 %; RBC Morphology Unremarkable
[2021-04-30] MEDS: MIDAZOLAM HCL 125 MG/250 ML BAG IV SCH ×2 (06:10)
[2021-04-30] MEDS: propofoL 1,000 MG/100 ML VIAL IV SCH ×5 (06:11→20:47)
--- NOTE | 2021-04-30 07:27 | XRay Report ---
XR chest 1V portable CLINICAL HISTORY: f/u COMPARISON STUDY: Chest radiograph April 29, 2021. FINDINGS: Tip of endotracheal tube is 4.2 cm above the evelyn. Right subclavian central line remains in place. There is no pneumothorax or pleural effusion. Tip of feeding tube is below the lower aspect of this image but at least within the distal esophagus. Interstitial thickening and bilateral opacit ies persist. IMPRESSION: 1. Tip of endotracheal tube 4.2 cm above the eevlyn. 2. No significant change in bilateral airspace opacities and interstitial thickening. ACT 112: Negative or not required by law. Electronically signed by: Reynaldo Michel M.D. 04/30/2021 7:25 AM
[2021-04-30] MEDS: ENOXAPARIN INJ 120 MG/0.8 ML SYR SQ SCH ×2 (07:48→20:44)
[2021-04-30] MEDS: dexAMETHasone 6 MG in SYRINGE 0 ML IV SCH (07:48)
[2021-04-30] MEDS: LACTULOSE SYRUP 20 GM/30 ML UDC PO SCH (07:50)
[2021-04-30] MEDS: POLYETHYLENE (MIRALAX) 17 GM PACK PO SCH (07:50)
[2021-04-30] MEDS: DOCUSATE SODIUM/SENNA 50/8.6MG TAB PO SCH (07:54)
[2021-04-30] MEDS: ARTIFICIAL TEARS OP OINT 3.5 GM TUBE OP SCH (08:29)
--- NOTE | 2021-04-30 09:27 | Hospitalist Progress Note ---
Date of Service April 30, 2021 Assessment & Plan (1) Acute respiratory failure with hypoxia: Plan: Secondary to COVID-pneumonia. Evidence of cytokine storm with high level oxygen. Now vent dependent. Empiric Full Dose Lovenox, intubated. (2) Pneumonia due to 2019 novel coronavirus: Plan: Plan as above. (3) HTN (hypertension): Plan: pressors (4) DM type 2 (diabetes mellitus, type 2): Plan: -Hgb A1c 8.2 10/2020 -Lantus and NovoLog per protocol hospitalized (5) FARNAZ on CPAP: Plan: -CPAP as per home settings, when weaned (6) Obesity: Plan: -BMI 36.4 (7) Anxiety: Plan: Vented and sedated (8) DVT prophylaxis: Plan: SQ Full dose Lovenox Full code Dispo-ICU. ROS-Offers no History, on vent Physical Exam Gen-NAD, afebrile, Tachypneic. Supine Head-NCAT, Anicteric Sclera, +ETT Neck-Supple, No JVD, No Thyromegaly, No Masses, No LAD, No Bruits Lungs-Clear to Auscultation Bilaterally, No Rales, No Rhonchi, No Wheezing, No Crepitus Chest-No S4, +S1, +S2, No S3, No Murmurs, No Rubs, No Gallops, No Ectopy Abdomen-Soft, Bowel Sounds Present, Non Tender, Obese, Non Distended, No Hepatomegaly, No Splenomegaly, No Palpable Masses, No Rebound, No Rigidity, No Guarding Musculoskeletal-NA Extremities-No Cyanosis, No Clubbing, No Edema Nuero- Non Focal Admission and Anticipated Discharge Date Admission Date: April 16, 2021 Subjective Patient seen and examined with the tire trucker. Remains on the ventilator Results & Data Results & Data ([facility]) Vital Signs (Past 12 Hours) Vital Signs Temp Pulse Resp BP Pulse Ox 04/30/21 09:00 37.5 C 62 29 H 107/61 90 04/30/21 08:30 37.5 C 62 31 H 108/62 91 04/30/21 08:00 37.5 C 64 27 H 107/64 92 04/30/21 07:34 73 37 H 91 04/30/21 07:30 37.5 C 71 29 H 103/60 92 04/30/21 07:00 37.5 C 64 28 H 92/61 L 91 04/30/21 06:45 37.5 C 66 30 H 91 04/30/21 04:16 63 35 H 92 04/30/21 02:00 37.4 C 60 32 H 102/60 91 04/30/21 01:30 37.4 C 58 L 30 H 109/65 91 04/30/21 01:00 37.5 C 61 29 H 109/66 92 04/30/21 00:30 37.5 C 66 31 H 91/59 L 92 04/30/21 00:00 37.5 C 65 26 H 101/61 92 04/29/21 23:47 63 36 H 91 04/29/21 23:30 37.4 C 61 31 H 104/62 88 L 04/29/21 23:00 37.4 C 61 28 H 103/63 91 04/29/21 22:30 37.4 C 60 30 H 100/64 92 04/29/21 22:00 37.3 C 61 28 H 104/64 91 04/29/21 21:30 37.4 C 59 L 29 H 109/61 Laboratory Results Reviewed
[2021-04-30] MEDS: PANTOprazole 40 MG in SYRINGE 0 ML IV SCH (09:51)
--- NOTE | 2021-04-30 10:59 | Pharmacy Report ---
Pharmacy Glycemic Short Note 2 - Date of Service April 30, 2021 - Glycemic Short BSG Results (Last 24 hours): 04/29/21 04/29/21 04/29/21 13:46 17:37 20:34 Glucose POC Glucose 148 H 142 H 151 H 04/30/21 04/30/21 04/30/21 02:06 04:25 05:59 Glucose 106 H POC Glucose 117 H 99 04/30/21 04/30/21 04/30/21 06:52 08:08 08:53 Glucose POC Glucose 109 H 133 H 159 H 04/30/21 09:55 Glucose POC Glucose 157 H OUTPATIENT ANTIDIABETIC REGIMEN: * Metformin 1000 mg PO BID * Dulaglutide 3 mg SQ weekly on Thu * A1c: 9.2% (04/17/21) ASSESSMENT: 04/30 * Remains intubated. Steroids tapered today. Tubefeeds adjusted to Peptamen VHP yesterday. Possible trach upcoming. Norepi continues, albeit at a low dose * Insulin infusion running at a stable rate, ranging 3.4-4.3 units/hr for the last ~48 hours * Continue insulin drip with Novolog coverage for CHO due to multiple stressors 04/28: * Remains intubated, sedated, paralyzed and on pressors. * TFs changes to Peptamen today and patient remains on IV dex. * Insulin infusion still running at ~4 units/hr. Given numerous acute stressors, continue IV insulin infusion per protocol with Novolog (CR 3) to cover tube feeds. 04/26: * Remains intubated, sedated and paralyzed. Norepi @ 0.05mcg/kg/min. Renal function steady with SCr ~ 2.1. * Erin @ luis m. Dexamethasone 10mg daily continues. Proning X 16hr today. * BSGs have trended down to goal with insulin drip. Infusion running @ ~6units/hr the majority of the evening into today. Given most recent BSGs this AM 118 and 111, discussed with RN to empirically reduce drip rate by about 20% to 4.5 unit/hr w/ repeat BSG @ 1300. * Given numerous acute stressors, continue IV insulin infusion per protocol with Novolog (CR 3) to cover tube feeds. 04/25: * Patient required intubation last evening. This AM patient is intubated, sedated, paralyzed, receiving pressors (norepi @0.07mcg/kg/min), new ZEN, IV steroid dose increased, Peptamen tube feeds initiated last night however being changed to Novasource renal at "trickle" rates. New dx of DVTs, possible PE. IV thrombolysis planned followed by IV heparin infusion. * BSGs did climb overnight to mid-200s this AM. This is prior to receiving today's dose of IV steroid and changing to a carb heavy feeding. IV insulin infusion will be initiated per protocol, may also have added benefit in hyperkalemia 04/24 * Worsening resp distress noted overnight. Patient decompensated despite proning. Hospitalist notified, IV dexamethasone admin early. * Pt noted to be hypoglycemic overnight. BSGs recovered following IV D50. Not tolerating PO with breakfast this AM. * Withheld AM NPH due to recent hypo as well as poor PO and anticipated poor PO today. Will give reduced NPH dose this afternoon as BSGs climbing again. Will reeval NPH needs tomorrow AM. * Continue "severe" stress Novolog doses however decrease correctional insulin doses given HS and overnight 04/21: * Blood sugars continue to trend up with steroid throughout the day and then drop overnight * Tighten CF/CR AC and increase NPH to cover steroid effects * Loosen HS, and DC Lantus to prevent AM hypoglycemia 04/19: * Fasting improved with addition of 10 units of lantus, will continue scale for PM tonight * Continued same NPH dose (0.4 unit/kg adjbw) with dexamethasone and tightedn carb ratio, lunch BSG improved continue to monitor for additional changes PLAN FOR INPATIENT GLYCEMIC CONTROL: * Hold outpatient diabetes medications (metformin, Trulicity) * Continue IV insulin per protocol, goal range 110-180mg/dL * Bolus insulin * NovoLog Q 4 hrs to cover carbs in tube feeds. * Nutritional / Prandial insulin per carb ratio of 1 unit per 3 grams CHO delivered in continuous tube feeds PLAN FOR DISCHARGE: * HbA1c: 9.2% suggests poor outpatient glycemic control * Reasonable to continue metformin and Trulicity at discharge if no contraindications * Consider addition of second oral agent that would minimize weight gain/promote weight loss, such as SGLT2 inhibitor * Initial dosing of empagliflozin would be 10 mg PO daily * Alternatively, if patient agreeable to insulin, could consider once daily basal insulin (although, concern for insulin-induced weight gain)
[2021-04-30] MEDS: INSULIN REGULAR 250 UNITS in SODIUM CHLORIDE 0.9% 247.5 ML IV SCH (11:02)
[2021-04-30] MEDS: PEPTAMEN INTENSE VHP 1.0 CAL 1,000 ML BAG GT SCH (11:02)
--- NOTE | 2021-04-30 12:05 | Critical Care Progress Note ---
Date of Service April 30, 2021 Assessment & Plan (1) Acute respiratory failure with hypoxia: (2) Pneumonia due to 2019 novel coronavirus: (3) Obesity: (4) Anxiety: (5) DVT of axillary vein, acute bilateral: Plan: Reason Critically Ill: Acute hypoxic respiratory failure secondary to COVID-19 pneumonia PLAN: Neuro: Sedation: Versed, propofol added 04/29 to decrease versed and fentanyl. Will need to keep an eye on trigs Analgesia: Fentanyl Intermittent neuromuscular blockade: vec/lj -Patient preferred early tracheostomy if possible Resp: Acute hypoxic respiratory failure -Intubation mechanical ventilation. After extensive discussion patient would opt for tracheostomy as opposed to 7 to 10 days of mechanical ventilation. -Do believe this is reasonable and the patient would likely not improve during that timeframe -Consult ENT for trach -Poor response to pronation. Will hold on further pronation -crp trending down, decrease Decadron CV: Hypotension: Improved Fluids/Renal: Acute kidney injury: Resolved ID: Finished course of Rocephin Low grade fever today. Will trend. Blood cultures NGTD and fungal cultures ngtd GI/Nutrition: Advance TF as tolerated Continue bowel regimen Protonix daily Trigs ordered for 05/01 Heme: Acute DVT s/p tpa earlier in hospital course DVT prophylaxis: Therapeutic Lovenox Endocrine: ICU hyperglycemia protocol Continue Decadron 6 mg daily Continue insulin gtt with elevated BSG Vascular access: Right subclavian central venous access, right radial art line Code Status: Full code Disposition: ICU Patient's updated over the phone. She is appreciative of the update and agrees with proceeding towards tracheostomy if required. CRITICAL CARE TIME - I have personally spent 48 minutes of critical care time in the direct management of this patient. This is a life/limb threatening event. This includes time spent evaluating patient, direct bedside care, chart review, placing orders, interpretation of diagnostic studies, discussion with consultants, patient, and family members, as well as other required patient management activities. This time is exclusive of all separately billable procedures, and teaching time and separate from and in addition to any other critical care service time. Admission and Anticipated Discharge Date Admission Date: April 16, 2021 Subjective Remains on vent. No significant changes. Review of Systems Review of Systems: Unobtainable due to endotracheal tube Physical Exam Physical Exam: General: Sedated. nontoxic. GCS 3 TP Skin: Warm, dry, Head: Atraumatic Ears, nose, mouth and throat: airway obscured by endotracheal tube Cardiovascular: Normal peripheral perfusion Respiratory: Ventilator settings reviewed mildly tachypnea. Coarse lung sounds. Gastrointestinal: Non distended Musculoskeletal: No deformity Neuro: Non-focal Results & Data Results & Data ([facility]) Vital Signs (Past 12 Hours) Vital Signs Temp Pulse Resp BP Pulse Ox 04/30/21 11:42 61 127/58 L 04/30/21 11:31 61 36 H 90 04/30/21 09:00 37.5 C 62 29 H 107/61 90 04/30/21 08:30 37.5 C 62 31 H 108/62 91 04/30/21 08:00 37.5 C 64 27 H 107/64 92 04/30/21 07:34 73 37 H 91 04/30/21 07:30 37.5 C 71 29 H 103/60 92 04/30/21 07:00 37.5 C 64 28 H 92/61 L 91 04/30/21 06:45 37.5 C 66 30 H 91 04/30/21 04:16 63 35 H 92 04/30/21 02:00 37.4 C 60 32 H 102/60 91 04/30/21 01:30 37.4 C 58 L 30 H 109/65 91 04/30/21 01:00 37.5 C 61 29 H 109/66 92 04/30/21 00:30 37.5 C 66 31 H 91/59 L 92 vitals, labs and imaging reviewed Coding Level of Care Code Critical Care 1st 30-74 mins Diagnoses Acute respiratory failure with hypoxia J96.01 Pneumonia due to 2019 novel coronavirus U07.1; J12.82 Obesity E66.9 Anxiety F41.9 DVT of axillary vein, acute bilateral I82.A13 Time Spent (min) 48
--- NOTE | 2021-04-30 17:31 | ENT Consultation ---
Date of Consultation April 30, 2021 Assessment & Plan (1) Acute respiratory failure with hypoxia: I will plan on tracheostomy this Thursday on my OR schedule. Please hold anticoagulants the night before. 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 for tracheostomy placement Allergies Allergy/AdvReac Type Severity Reaction Status Date / Time methylparaben Allergy Mild ITCHING Unverified 04/16/21 14:03 oxymorphone Allergy Mild ITCHING Unverified 04/16/21 14:03 Home Medications Medication Instructions Recorded Confirmed Type metformin 1,000 mg tablet 1,000 mg PO BIDWMEAL #0 tab 05/04/12 04/16/21 History acetaminophen 650 mg tablet 650 mg PO Q4H PRN #0 tab 10/22/12 04/16/21 History albuterol sulfate 90 mcg/actuation 2 puff INHALATION Q4H PRN 04/16/21 04/16/21 History aerosol inhaler dulaglutide 3 mg/0.5 mL 3 mg SUBCUT WK 04/16/21 04/16/21 History subcutaneous pen injector (Trulicity) hydrochlorothiazide 25 mg tablet 25 mg PO DAILY 04/16/21 04/16/21 History omeprazole 20 mg capsule,delayed 20 mg PO DAILY 04/16/21 04/16/21 History release prednisone 10 mg tablet 10 mg PO UD 04/16/21 04/16/21 History testosterone cypionate 200 mg/mL 200 mg IM UD 04/16/21 04/16/21 History intramuscular oil Patient History Medical History DM type 2 (diabetes mellitus, type 2) HTN (hypertension) Obesity FARNAZ on CPAP Surgical History H/O laminectomy x 2 History of appendectomy Family History Father Diabetes Hypertension Social History Smoking Status: Never smoker Second Hand Exposure: No; Hx Alcohol Use: Yes Alcohol type: beer Alcohol Intake Frequency: Monthly or Less Hx Substance Use: No Preferred Language: Marshallese Communication Ability: Effective Bottom Buffer Required: No Beliefs That Will Affect Care: None Current Living Situation: Spouse Current Living Situation Comment: single story home with steps to enter Feels Safe at Home: Yes Assistive Devices: Oxygen - Continuous Physical Exam Constitutional: + obese Eyes: PERRL, conjunctivae normal, anicteric sclerae Neck: trachea midline, no thyromegaly Results & Data ([facility]) Vital Signs (Past 12 Hours) Vital Signs Temp Pulse Resp BP Pulse Ox 04/30/21 16:00 37.2 C 53 L 27 H 103/61 90 04/30/21 15:30 37.2 C 59 L 30 H 99/57 L 90 04/30/21 15:15 60 36 H 93 04/30/21 15:00 37.2 C 57 L 28 H 106/61 92 04/30/21 14:30 37.2 C 57 L 34 H 101/62 91 04/30/21 14:00 37.3 C 60 31 H 109/64 93 04/30/21 13:30 37.3 C 63 27 H 108/65 93 04/30/21 13:00 37.3 C 59 L 25 H 102/63 93 04/30/21 12:30 37.3 C 60 25 H 103/63 93 04/30/21 12:00 37.4 C 62 32 H 97/62 L 93 04/30/21 11:42 61 127/58 L 04/30/21 11:31 61 36 H 90 04/30/21 11:30 37.4 C 61 31 H 94 04/30/21 11:00 37.4 C 72 29 H 142/83 H 93 04/30/21 10:30 37.4 C 57 L 32 H 107/64 91 04/30/21 10:00 37.5 C 59 L 36 H 107/63 89 L 04/30/21 09:30 37.5 C 60 33 H 93/65 L 90 04/30/21 09:00 37.5 C 62 29 H 107/61 90 04/30/21 08:30 37.5 C 62 31 H 108/62 91 04/30/21 08:00 37.5 C 64 27 H 107/64 92 04/30/21 07:34 73 37 H 91 04/30/21 07:30 37.5 C 71 29 H 103/60 92 04/30/21 07:00 37.5 C 64 28 H 92/61 L 91 04/30/21 06:45 37.5 C 66 30 H 91
[2021-04-30] MEDS: fentaNYL citrate 2,500 MCG/250 ML BAG IV SCH (20:46)
[2021-05-01] MEDS: NOREPINEPHRINE/D5W 8 MG/508 ML BAG IV SCH ×2 (00:21→21:35)
[2021-05-01] MEDS: MIDAZOLAM HCL 125 MG/250 ML BAG IV SCH (01:18)
[2021-05-01] MEDS: TUBE FEEDING WATER FLUSH GT SCH ×6 (01:18→21:34)
[2021-05-01] MEDS: propofoL 1,000 MG/100 ML VIAL IV SCH ×6 (01:18→19:12)
[2021-05-01] MEDS: INSULIN ASPART PER UNIT SC SCH ×7 (01:24→23:52)
[2021-05-01 04:28] LABS: iSTAT Art Bld Gas pCO2 Correct 60 mmHg (35-46); iSTAT Art Bld Gas pH Corrected 7.389 (7.35-7.45); iSTAT Arterial Blood Gas HCO3 36 meg/L (19-24); iSTAT Arterial Blood Gas pCO2 59 mmHg (35-46); iSTAT Arterial Blood Gas pH 7.39 (7.35-7.45); iSTAT Arterial Blood Gas pO2 67 mmHg (80-95); iSTAT Arterial Blood Gas pO2 C 68; iSTAT Carbon Dioxide 38 mmol/L (24-31); iSTAT FiO2 50 %; iSTAT Hematocrit 31 % (42-52); iSTAT Hemoglobin 10.5 g/dl (14.0-18.0); iSTAT Potassium 4.6 mmol/L (3.3-5.0); iSTAT Site Art Line; iSTAT Sodium 138 mmol/L (135-144)
[2021-05-01 05:57] LABS: Hematocrit (blood only) 35.9 % (42-52); Hemoglobin 11.1 g/dL (14.0-18.0); Mean Corpuscular Hemoglobin 29.8 pg (25-34); Mean Corpuscular Hgb Conc 30.9 g/dL (32-36); Mean Corpuscular Volume 96.2 fL (80-100); Mean Platelet Volume 10.2 fL (7.4-10.4); Platelet Count 275 K/uL (130-400); RDW Coefficient of Variation 14.5 % (11.5-14.5); RDW Standard Deviation 51.1 fL (36.4-46.3); Red Blood Count 3.73 M/uL (4.7-6.1); White Blood Count 12.96 K/uL (4.8-10.8)
[2021-05-01 06:06] LABS: Calcium 8.7 mg/dl (8.5-10.1); Creatinine Clr Calc Pharmacy 146.9 ml/min; Est GFR (African American) 121.4 ml/min; Est GFR (Non-African American) 104.7 ml/min; Magnesium 2.1 mg/dl (1.7-2.4); Phosphorus 3.2 mg/dl (2.5-4.9); Potassium 4.6 mmol/L (3.5-5.1)
[2021-05-01 06:27] LABS: ALC (manual) 0.47 K/uL (1.2-3.4); ANC (manual) 10.04 K/uL (1.4-6.5); Eosinophils # (manual) 0.12 K/uL (0-0.5); Eosinophils % (manual) 0.9 %; Lymphocytes # (manual) 0.47 K/uL (1.2-3.4); Lymphocytes % (manual) 3.6 %; Metamyelocytes # (manual) 0.12 K/uL (0-0); Metamyelocytes % (manual) 0.9 %; Monocytes # (manual) 1.75 K/uL (0.11-0.59); Monocytes % (manual) 13.5 %; Myelocytes # (manual) 0.47 K/uL (0-0); Myelocytes % (manual) 3.6 %; Neutrophils # (manual) 10.04 K/uL (1.4-6.5); Neutrophils % (manual) 77.5 %; RBC Morphology Unremarkable
--- NOTE | 2021-05-01 07:34 | CT Scan Report ---
CT abd pelvis wo con CLINICAL HISTORY: hematoma? TECHNIQUE: Helical axial images of the abdomen and pelvis were obtained. Automated dose lowering tech niques and/or adjustment according to patient size were utilized for this exam. This exam was perfor med without intravenous contrast. COMPARISON: Comparison is made to CT abdomen pelvis 03/25/2013 FINDINGS: Lower chest: There are extensive airspace opacities in the visualized lungs. Mild cardiomegaly is pa rtially visualized. Liver: Unremarkable. No focal lesions are seen. Gallbladder and biliary tree: No calcified gallstones. Normal caliber wall. No intra- or extrahepatic biliary ductal dilation. Pancreas: Unremarkable, no focal lesions. Spleen: Unremarkable. Adrenals: Unremarkable. Kidneys and ureters: Unremarkable. Bladder: Montes catheter is seen. Reproductive organs: Unremarkable. Bowel: Prominent gas fluid levels are seen in the mildly distended colon. Lymph nodes Retroperitoneal: Unremarkable. Mesenteric: Unremarkable. Pelvic: Unremarkable. Peritoneum: Normal. Vessels: Unremarkable. Abdominal wall: Scarring and postsurgical changes are seen in the lower abdominal wall with laxity in feriorly, unchanged. Heterotopic calcifications are seen in the anterior abdominal wall. Bones: Heterotopic bone formation is seen about the pelvis, likely secondary to old fracture. Fixatio n hardware seen in the lumbosacral spine. IMPRESSION: 1. No evidence of hematoma. 2. Gas fluid level in the colon may reflect ileus. No evidence of obstruction. 3. Chronic laxity in the anterior abdominal wall. Additional findings as above. ACT 112: Negative or not required by law. Electronically signed by: Sanchez Guillen M.D. 05/01/2021 7:33 AM
[2021-05-01] MEDS ORDERED: VECURONIUM BROMIDE 10 MG VIAL IV ONE ×2 (07:58→12:13)
[2021-05-01] MEDS ORDERED: LIDOCAINE 2%/EPINEPHRINE 1:100,000 20ML INFIL ONE (08:00)
--- NOTE | 2021-05-01 08:40 | Procedure Note ---
Procedure Note Date of Service May 01, 2021 Note Procedure Name: Fiberoptic bronchoscopy for placement of percutaneous tracheostomy tube Procedure time out: side/site verified, patient ID confirmed, correct procedure Consent obtained: written (The risks, benefits, indications, potential complications, and alternatives were explained to the family and informed consent obtained by Dr. Abrams.) Time of procedure: 07: Performed by: physician manual machinist: Brady Chávez PA-C Indications: diagnostic, therapeutic Contraindications: None Indication: Patient requiring percutaneous placement of tracheostomy tube. Fiberoptic bronchoscopy required for clearance of secretions prior to the procedure, visualization of cannulization, and verification of airways status post procedure. The bronchoscope was introduced into the endotracheal tube. There was no evidence of bleeding or significant bronchial trauma. There were minimal secretions in the subsegmental branches of the left lower lobe. These were evacuated. The right and main left bronchus as well as the segmental branches of the right middle and right lower lobe and left upper, lingula and left lower lobes were again examined with no blood or other mucous plugging. There was no evidence of bronchial trauma on the final examination with the fiberoptic scope. The cuff of the endotracheal tube was deflated and the endotracheal tube was withdrawn to the level of the vocal cords using video bronchoscopy. The cuff was lightly reinflated and the fiberoptic bronchoscope was advanced to the tip of the endotracheal tube. The needle entry site in the trachea midline was visualized as was the placement of the guidewire into the distal trachea. The surgical site was visualized for the entire procedure. After placement of the tracheostomy tube, the bronchoscope was withdrawn from the endotracheal tube and introduced through the tracheostomy tube to confirm correct placement. The bronchoscope was then withdrawn to allow suturing of the tracheostomy tube into position. After confirmation of position of the tracheostomy tube the endotracheal tube was removed. After the tracheostomy tube was secured in position the fiberoptic scope was then again passed through the tracheostomy tube. Marissa was clearly visualized. There is no significant blood in the bronchial branches. There was not any significant mucus. The bronchoscope was withdrawn and good tidal volume was observed on the ventilator. The patient experienced minimal desaturation momentarily to 85% and experienced some bradycardia there was transient. No significant complication during the procedure. Dr. Abrams was present for the entire procedure as he was performing the surgical portion of the percutaneous tracheostomy Complications: none Patient tolerated procedure: well Post-procedure vital signs: reviewed and stable Comments: The patient received sedation and neuromuscular blockade for the procedure with airway intact with endotracheal tube. This was ordered, administered, and monitored by Dr. Abrams during my portion of the procedure. Coding CPT Codes Pulmonary/Thoracic - Pulmonary and Thoracic: 59661 Bronchoscopy, clear airways ([id number]) [facility] [place] Procedure Codes (Charges) Pulmonary/Thoracic Procedure 1: Pulmonary and Thoracic: 90131 Bronchoscopy, clear airways
[2021-05-01] MEDS: dexAMETHasone 6 MG in SYRINGE 0 ML IV SCH (08:55)
[2021-05-01] MEDS: DOCUSATE SODIUM/SENNA 50/8.6MG TAB PO SCH (08:56)
[2021-05-01] MEDS: LACTULOSE SYRUP 20 GM/30 ML UDC PO SCH (08:56)
[2021-05-01] MEDS: POLYETHYLENE (MIRALAX) 17 GM PACK PO SCH (08:56)
--- NOTE | 2021-05-01 08:59 | XRay Report ---
XR chest 1V portable CLINICAL HISTORY: Dyspnea TECHNIQUE: Single frontal radiograph of the chest was obtained. Comparison: Comparison is made to chest one view 04/30/2021 FINDINGS: Lines and tubes are stable. The cardiomediastinal silhouette is obscured. Multifocal airspace opaciti es are seen. Bilateral pleural effusions are seen. IMPRESSION: Multifocal airspace opacities may represent atelectasis, pneumonia, and/or aspiration. Bilateral pleu ral effusions are seen. ACT 112: Negative or not required by law. Electronically signed by: Sanchez Guillen M.D. 05/01/2021 8:57 AM
--- NOTE | 2021-05-01 09:48 | Procedure Note ---
Procedure Note Date of Service May 01, 2021 Note Procedure Date: Noted Above Procedure: Percutaneous Dilatational Tracheotomy with Bronchoscopic Guidance Pre-procedure Diagnosis & Indication: Chronic respiratory failure and need for ongoing mechanical ventilation Post-procedure Diagnosis: same as above Prior to Procedure: Informed Consent: The risks, benefits, indications, potential complications, and alternatives were explained to the patient's family and informed consent was obtained. Performed by: Jen Abrams DO Bronchoscopy Third Officer: Kavita Chávez Preprocedure: The identity of the patient was confirmed and a bedside time out was performed. [place] protocol was followed for this procedure. Prior to the initiation of sedation or the procedure, a timeout was performed. The patients identity was verified by confirming the patients wrist band for name, date of , and medical record number. Everyone in the room was in agreement with the patient identify, the procedure to be performed, consent was in place and matched the planned procedure, and the procedure site. The area was cleaned with a CHG scrub and draped with large sterile barrier. Hand hygiene was performed, and cap, mask, sterile gown, and sterile gloves were worn. The patient was covered by a large sterile drape. Sterile technique was maintained for the entire procedure. Anesthesia: The patient was intubated and sedated prior to the procedure. Additional midazolam and fentanyl was given for deep sedation. Please refer to the accompanying procedural sedation form for additional details. Once the patient was adequately sedated, vecuronium was administered for paralysis. Description of Procedure: The patient was placed in the supine position. The anterior neck was prepped and draped in usual sterile fashion. 2% lidocaine with epinephrine was administered approximately 2 fingerbreadths above the sternal notch for local anesthesia. The bronchoscope was introduced through the endotracheal tube and the trachea was properly visualized. The endotracheal tube was then gradually withdrawn within the trachea under direct bronchoscopic visualization. The area of the surgical site was initially transilluminated, and proper midline position was confirmed by bouncing the needle from the tracheostomy tray over the trachea with bronchoscopic examination. The needle was advanced into the trachea and proper positioning was confirmed with direct visualization. The needle was then removed leaving a white outer cannula in position. The wire from the tracheostomy tray was then advanced through the white outer cannula. The cannula was then removed. The initial small, blue dilator was then advanced over the wire into the trachea for initial dilation. The large, tapered dilator was then advanced over the wire into the trachea. The dilator was removed leaving the wire. A number 6 percutaneous Shiley tracheostomy tube with appropriate inner cannula was then advanced over the wire and into the trachea. Difficulty was encountered and the tracheostomy was not visualized in the lumen of the trachea. Attempts at placement were discontinued and the tracheostomy tube was removed. It was noted the guidewire was bent and we were unable to successfully place the tracheostomy tube so a new kit was obtained. Through the small incision the needle was again placed into the midline of the trachea and the wire was visualized entering the lumen. A small dilator was then advanced and visualized, followed with the large blue dilator through the previous incision site. With the guidewire remaining the blue dilator was removed and a #6 percutaneous Shiley tracheostomy tube with appropriate inner cannula was then advanced over the wire and into the trachea. Proper positioning was confirmed with bronchoscopic visualization. The tracheostomy tube was then sutured in place with four nylon sutures. It was further secured with a tracheostomy tie. Estimated blood loss: Less than 5 mL. Complications: None immediate. Coding CPT Codes ENT - ENT: 96332 Incision of windpipe ([id number]) [facility] [place] [place] Procedure Codes (Charges) ENT ENT: 24953 Incision of windpipe
[2021-05-01] MEDS ORDERED: METHYLNALTREXONE BROMIDE 12 MG/0.6 ML VIAL SQ STA (09:56)
--- NOTE | 2021-05-01 10:41 | Critical Care Progress Note ---
Date of Service May 01, 2021 Assessment & Plan (1) Acute respiratory failure with hypoxia: (2) Pneumonia due to 2019 novel coronavirus: (3) Obesity: (4) Anxiety: (5) DVT of axillary vein, acute bilateral: Plan: Reason Critically Ill: Acute hypoxic respiratory failure secondary to COVID-19 pneumonia PLAN: Neuro: Sedation: Versed, propofol added 04/29 to decrease versed and fentanyl. Analgesia: Fentanyl Intermittent neuromuscular blockade: vec/lj -Patient preferred early tracheostomy Resp: Acute hypoxic respiratory failure -Continue lung protective ventilation strategy. Continues with high vent requirements. Trached 05/01/2021. CV: Hypotension: Improved Cold RLE, but no clot seen or hemodynamically significant lesion Fluids/Renal: Acute kidney injury: Resolved ID: Finished course of Rocephin Low grade fever today. Will trend. Blood cultures NGTD and fungal cultures ngtd GI/Nutrition: Advance TF as tolerated Continue bowel regimen Protonix daily Trigs ordered for 05/01 Heme: Acute DVT s/p tpa earlier in hospital course DVT prophylaxis: Therapeutic Lovenox Endocrine: ICU hyperglycemia protocol Continue Decadron 6 mg daily Continue insulin gtt with elevated BSG Vascular access: Right subclavian central venous access, right radial art line Code Status: Full code Disposition: ICU updated over the phone. CRITICAL CARE TIME - I have personally spent 36 minutes of critical care time in the direct manageme nt of this patient. This is a life/limb threatening event. This includes time spent evaluating patient, direct bedside care, chart review, placing orders, interpretation of diagnostic studies, discussion with consultants, patient, and family members, as well as other required patient management activities. This time is exclusive of all separately billable procedures, and teaching time and separate from and in addition to any other critical care service time. Admission and Anticipated Discharge Date Admission Date: April 16, 2021 Subjective Patient seen and examined. No significant changes. Underwent percutaneous tracheostomy placement by Dr. Abrams this morning. He had some desaturations post procedure and received a one-time bolus of vecuronium. Continues on Versed, propofol and fentanyl drips. Otherwise no issues. Review of Systems Review of Systems: All systems reviewed & are unremarkable except as noted in HPI & below Physical Exam Physical Exam: General: Sedated. nontoxic. GCS 3 TP Skin: Warm, dry, Head: Atraumatic Ears, nose, mouth and throat: airway obscured by endotracheal tube Cardiovascular: Right foot is cool to touch. Pulses palpable. Regular rate and rhythm. No murmurs. Respiratory: Ventilator settings reviewed mildly tachypnea. Coarse lung sounds. Gastrointestinal: Non distended Musculoskeletal: No deformity Neuro: Non-focal Results & Data Results & Data ([facility]) Vital Signs (Past 12 Hours) Vital Signs Temp Pulse Resp BP Pulse Ox 05/01/21 08:00 37.1 C 57 L 32 H 127/70 99 05/01/21 07:00 37.1 C 60 34 H 115/62 91 05/01/21 06:30 37.0 C 59 L 32 H 90 05/01/21 06:00 37.0 C 52 L 28 H 126/68 89 L 05/01/21 05:36 37.1 C 67 31 H 133/65 90 05/01/21 05:30 37.1 C 62 34 H 90 05/01/21 05:00 37.2 C 33 H 91 05/01/21 04:30 37.2 C 61 29 H 91 05/01/21 04:14 62 34 H 91 05/01/21 04:00 37.3 C 61 32 H 108/64 91 05/01/21 03:30 37.3 C 57 L 31 H 90 05/01/21 03:00 37.4 C 66 28 H 110/62 91 05/01/21 02:30 37.5 C 63 31 H 91 05/01/21 02:00 37.5 C 64 34 H 106/65 92 05/01/21 01:30 37.5 C 65 32 H 91 05/01/21 01:00 37.4 C 62 31 H 108/64 91 05/01/21 00:30 37.4 C 61 27 H 91 05/01/21 00:00 37.4 C 65 30 H 100/63 91 04/30/21 23:34 37.3 C 65 32 H 04/30/21 23:30 37.3 C 67 32 H 104/63 91 04/30/21 23:00 37.3 C 63 29 H 89 L Vital signs, labs and imaging reviewed Coding Level of Care Code Critical Care 1st 30-74 mins Diagnoses Acute respiratory failure with hypoxia J96.01 Pneumonia due to 2019 novel coronavirus U07.1; J12.82 Obesity E66.9 Anxiety F41.9 DVT of axillary vein, acute bilateral I82.A13 Time Spent (min) 36
[2021-05-01] MEDS: ENOXAPARIN INJ 120 MG/0.8 ML SYR SQ SCH ×2 (10:43→21:05)
--- NOTE | 2021-05-01 10:44 | XRay Report ---
SINGLE VIEW CHEST CLINICAL HISTORY: Tracheostomy. Respiratory failure. Covid pneumonia. FINDINGS: An AP, portable, semierect chest radiograph is compared to study performed earlier the same day 05/01/2021. Correlation is made with chest CT dated 05/11/2010. The examination is degraded by port able technique and patient rotation. An endotracheal tube has been removed and a tracheostomy has bee n placed. An enteric tube and a right internal jugular central venous catheter are unchanged in posit ion. The cardiomediastinal silhouette is unremarkable. Extensive/multifocal airspace consolidation is again noted. No large pleural effusion or pneumothorax is seen. The bony thorax is grossly intact. IMPRESSION: 1. An endotracheal tube has been removed and a tracheostomy has been placed. 2. Remaining lines and tubes are unchanged. 3. Multifocal airspace consolidation is unchanged from earlier today. ACT 112: Negative or not required by law. Electronically signed by: Brady Cam M.D. 05/01/2021 10:43 AM
[2021-05-01] MEDS: PANTOprazole 40 MG in SYRINGE 0 ML IV SCH (10:45)
[2021-05-01] MEDS: fentaNYL citrate 2,500 MCG/250 ML BAG IV SCH ×3 (11:04→12:42)
--- NOTE | 2021-05-01 11:16 | Ultrasound Report ---
US arterial duplex LE RT HISTORY: 51 years-old Male decreased pulses, cold, mottled acutely decreased pulses of the right low er extremity COMPARISON: None TECHNIQUE: Multiple real-time sonographic images of the right lower extremity arterial structures wer e obtained assessing grayscale appearance, color and spectral flow FINDINGS: Mild atherosclerotic plaque. Triphasic waveforms are noted throughout. No arterial occlusion or eleva kashif peak systolic velocities to suggest high-grade stenosis. IMPRESSION: Mild atherosclerotic vascular disease without arterial occlusion or hemodynamically signi ficant stenosis. ACT 112: Negative or not required by law. The above report was generated using voice recognition software. It may contain grammatical, syntax o r spelling errors. Electronically signed by: Genaro Pizarro M.D. 05/01/2021 11:14 AM
--- NOTE | 2021-05-01 15:16 | Hospitalist Progress Note ---
Date of Service May 01, 2021 Assessment & Plan (1) Acute respiratory failure with hypoxia: (2) Pneumonia due to 2019 novel coronavirus: Plan: 51-year-old male with PMH of DM type II, HTN, obesity, GERD, HTN, anxiety and FARNAZ on CPAP presented 04/16 for evaluation of shortness of breath. Tested positive for COVID-19 on 04/06. Patient unvaccinated. At presentation to the ED, patient required 15 L oxygen to maintain saturation. Is being managed for the following: #. Acute respiratory failure with hypoxia #. 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 Intubated on 04/24 for respiratory distress, for tracheostomy today. Finished course of Rocephin. Patient intubated/mechanically ventilated and sedated. Currently on fentanyl/Versed/insulin/propofol drips. He is requiring intermittent Nimbex for asynchronous breathing over the vent. ICU team managing. Continue with GI prophylaxis. #. AKIresolved #. Acute DVT BLE Status post TPA earlier in hospital course On therapeutic Lovenox Disposition: ICU. Admission and Anticipated Discharge Date Admission Date: April 16, 2021 Subjective Patient being managed for acute respiratory failure secondary to pneumonia due to COVID-19 virus. Patient lying in bed, intubated, sedated, mechanically ventilated. ROS n/a d/t vent and sedation. Per RN, patient has not moved bowel since last 10 days, no new acute events overnight. Patient is getting tube feed via Corsef tube and is getting propofol/fentanyl/Versed/insulin drips and intermittent paralytics for asynchronous breathing over the vent. Per RN, his resp rate increases with desaturation down to 80s. Physical Exam Physical Exam: GENERAL: Sedated, intubated, mechanically ventilated. HEENT: No pallor, no icterus. Pupils equal, round and reactive to light. Oral mucosa dry. NECK: No JVD, no neck masses. HEART: S1 and S2 heard. Regular rate and rhythm. No murmur, no gallop. RESPIRATORY SYSTEM: Normal AP diameter. No accessory muscle use. No wheezing, bilateral diffuse crackles intermixed with conducted/mechanical cough breath sounds. ABDOMEN: Soft, bowel sounds present, nontender, no distention. CENTRAL NERVOUS SYSTEM: No facial droop. Speech is clear. Obeys simple commands. Moves extremities. EXTREMITIES: No edema, no erythema seen. Urinary catheter in situ with dark yellow urine collection. Results & Data Results & Data ([facility]) Vital Signs (Past 12 Hours) Vital Signs Temp Pulse Resp BP Pulse Ox 05/01/21 14:00 36.6 C 108 H 25 H 153/95 H 90 05/01/21 13:01 37.0 C 112 H 24 172/85 H 87 L 05/01/21 13:00 37.0 C 107 H 26 H 86 L 05/01/21 12:00 37.2 C 87 19 132/84 95 05/01/21 11:00 37.1 C 66 26 H 135/64 88 L 05/01/21 10:30 65 33 H 91 05/01/21 10:00 37.0 C 63 30 H 118/63 94 05/01/21 09:00 37.0 C 61 32 H 126/64 89 L 05/01/21 08:00 37.1 C 57 L 32 H 127/70 99 05/01/21 07:05 58 L 35 H 91 05/01/21 07:00 37.1 C 60 34 H 115/62 91 05/01/21 06:30 37.0 C 59 L 32 H 90 05/01/21 06:00 37.0 C 52 L 28 H 126/68 89 L 05/01/21 05:36 37.1 C 67 31 H 133/65 90 05/01/21 05:30 37.1 C 62 34 H 90 05/01/21 05:00 37.2 C 33 H 91 05/01/21 04:30 37.2 C 61 29 H 91 05/01/21 04:14 62 34 H 91 05/01/21 04:00 37.3 C 61 32 H 108/64 91 05/01/21 03:30 37.3 C 57 L 31 H 90
[2021-05-01] MEDS: INSULIN REGULAR 250 UNITS in SODIUM CHLORIDE 0.9% 247.5 ML IV SCH (21:03)
[2021-05-01] MEDS ORDERED: VECURONIUM BROMIDE 10 MG VIAL IV STA (22:00)
[2021-05-02] MEDS: propofoL 1,000 MG/100 ML VIAL IV SCH ×3 (00:32→13:43)
[2021-05-02] MEDS: fentaNYL citrate 2,500 MCG/250 ML BAG IV SCH ×3 (00:32→19:41)
[2021-05-02] MEDS: MIDAZOLAM HCL 125 MG/250 ML BAG IV SCH ×2 (03:36→13:06)
[2021-05-02 04:36] LABS: iSTAT Art Bld Gas pCO2 Correct 89 mmHg (35-46); iSTAT Art Bld Gas pH Corrected 7.262 (7.35-7.45); iSTAT Arterial Blood Gas HCO3 40 meg/L (19-24); iSTAT Arterial Blood Gas pCO2 87 mmHg (35-46); iSTAT Arterial Blood Gas pH 7.27 (7.35-7.45); iSTAT Arterial Blood Gas pO2 69 mmHg (80-95); iSTAT Arterial Blood Gas pO2 C 71; iSTAT Carbon Dioxide > 40 mmol/L (24-31); iSTAT Hematocrit 34 % (42-52); iSTAT Hemoglobin 11.6 g/dl (14.0-18.0); iSTAT Potassium 5.2 mmol/L (3.3-5.0); iSTAT Site Art Line; iSTAT Sodium 138 mmol/L (135-144)
[2021-05-02] MEDS: INSULIN ASPART PER UNIT SC SCH ×5 (04:45→19:45)
[2021-05-02] MEDS: TUBE FEEDING WATER FLUSH GT SCH ×6 (04:46→19:43)
[2021-05-02 05:17] LABS: Basophils # (auto) 0.03 K/uL (0-0.2); Basophils % (auto) 0.2 %; Eosinophils # (auto) 0.07 K/uL (0-0.5); Eosinophils % (auto) 0.5 %; Hemoglobin 11.3 g/dL (14.0-18.0); Immature Granulocytes % (auto) 3.9 %; Lymphocytes % (auto) 13.1 %; Mean Corpuscular Hemoglobin 29.6 pg (25-34); Mean Corpuscular Hgb Conc 29.7 g/dL (32-36); Mean Corpuscular Volume 99.5 fL (80-100); Mean Platelet Volume 10.2 fL (7.4-10.4); Monocytes # (auto) 0.16 K/uL (0.11-0.59); Neutrophils # (auto) 12.45 K/uL (1.4-6.5); Neutrophils % (auto) 81.3 %; Nucleated RBC # (auto) 0.04 K/uL (0-0); Nucleated RBC % (auto) 0.3 %; Platelet Count 285 K/uL (130-400); RDW Coefficient of Variation 14.8 % (11.5-14.5); RDW Standard Deviation 53.5 fL (36.4-46.3); Red Blood Count 3.82 M/uL (4.7-6.1); White Blood Count 15.31 K/uL (4.8-10.8)
[2021-05-02 05:42] LABS: BUN Creatinine Ratio 47.2 (10-20); Est GFR (African American) 123.4 ml/min; Est GFR (Non-African American) 106.5 ml/min; Phosphorus 3.4 mg/dl (2.5-4.9); Potassium 5.2 mmol/L (3.5-5.1)
--- NOTE | 2021-05-02 07:31 | XRay Report ---
XR chest 1V portable HISTORY: 51 years-old Male f/u acute respiratory failure COMPARISON: Chest radiograph 05/01/2021 TECHNIQUE: Portable AP view of the chest FINDINGS: Cardiac silhouette is enlarged. Tracheostomy cannula appears to be unchanged positioning. Right subcl bruno central venous catheter distal tip projects over the right atrium. Enteric tube courses below t he diaphragm with distal tip outside the [id number]. Small pleural effusions. Since of intermixed interstitial and alveolar opacities are redemonstrated, mildly progressed within the right lung base. No pneumothorax. The bones appear grossly intact. IMPRESSION: 1. Lines and tubes as above. 2. Extensive airspace opacities are redemonstrated, mildly progressed within the right lung base. 3. No pneumothorax. ACT 112: Negative or not required by law. The above report was generated using voice recognition software. It may contain grammatical, syntax o r spelling errors. Electronically signed by: Genaro Pizarro M.D. 05/02/2021 7:30 AM
[2021-05-02] MEDS ORDERED: FUROSEMIDE 40 MG/4 ML VIAL IV ONE (08:22)
--- NOTE | 2021-05-02 08:30 | Critical Care Progress Note ---
Date of Service May 02, 2021 Assessment & Plan (1) Acute respiratory failure with hypoxia: (2) Pneumonia due to 2019 novel coronavirus: (3) Obesity: (4) Anxiety: (5) DVT of axillary vein, acute bilateral: Plan: Reason Critically Ill: Acute hypoxic respiratory failure secondary to COVID-19 pneumonia PLAN: Neuro: Sedation: Versed, propofol added 04/29 to decrease versed and fentanyl. Continue to wean as able. Will add oxy 15 mg q4h and Klonopin 1 mg tid. Analgesia: Fentanyl Intermittent neuromuscular blockade: vec/lj -Patient preferred early tracheostomy Resp: Acute hypoxic respiratory failure -Continue lung protective ventilation strategy. Continues with high vent requirements. Trached 05/01/2021. Severe ARDS. CV: Hypotension: Improved Cold RLE, but no clot seen or hemodynamically significant lesion Fluids/Renal: Acute kidney injury: Resolved Will give 40 mg IV lasix today ID: Finished course of Rocephin Low grade fever today. Procal and sputum culture ordered Blood cultures NGTD and fungal cultures ngtd GI/Nutrition: Advance TF as tolerated Continue bowel regimen, methylnaltrexone given 05/01. Protonix daily Trigs ordered for 05/01 normal Heme: Acute DVT s/p tpa earlier in hospital course DVT prophylaxis: Therapeutic Lovenox Endocrine: ICU hyperglycemia protocol Continue Decadron 6 mg daily Continue insulin gtt with elevated BSG Vascular access: Right subclavian central venous access, right radial art line Code Status: Full code Disposition: ICU No family readily available at bedside. Prognosis very guarded. CRITICAL CARE TIME - I have personally spent 34 minutes of critical care time in the direct management of this patient. This is a life/limb threatening event. This includes time spent evaluating patient, direct bedside care, chart review, placing orders, interpretation of diagnostic studies, discussion with consultants, patient, and family members, as well as other required patient management activities. This time is exclusive of all separately billable procedures, and teaching time and separate from and in addition to any other critical care service time. Admission and Anticipated Discharge Date Admission Date: April 16, 2021 Subjective Patient seen and examined. Continues on Versed, fentanyl and propofol infusions. Minimally responsive to commands. Remains on high vent support. Review of Systems Review of Systems: Unobtainable due to endotracheal tube Physical Exam Physical Exam: General: Sedated. nontoxic. GCS 3 TP Skin: Warm, dry, Head: Atraumatic Ears, nose, mouth and throat: Trach in place Cardiovascular: Pulses palpable. Regular rate and rhythm. No murmurs. Respiratory: Tachypnea Coarse lung sounds. Gastrointestinal: Non distended Musculoskeletal: No deformity Neuro: Non-focal Results & Data Results & Data ([facility]) Vital Signs (Past 12 Hours) Vital Signs Temp Pulse Resp BP Pulse Ox 05/02/21 07:00 37.7 C H 92 H 22 139/84 90 05/02/21 06:00 37.6 C H 94 H 22 134/76 91 05/02/21 05:00 37.6 C H 95 H 21 128/79 90 05/02/21 04:20 26 H 05/02/21 04:15 99 H 36 H 90 05/02/21 04:00 37.5 C 94 H 21 134/77 90 05/02/21 03:00 37.3 C 91 H 24 132/78 91 05/02/21 02:00 37.2 C 96 H 24 89 L 05/02/21 01:00 37.2 C 98 H 26 H 140/74 87 L 05/02/21 00:00 37.3 C 99 H 28 H 124/74 86 L 05/01/21 23:00 37.3 C 88 29 H 146/77 H 89 L 05/01/21 22:40 88 36 H 91 05/01/21 22:00 37.2 C 80 27 H 147/77 H 92 05/01/21 21:58 37.2 C 80 24 142/76 H 92 05/01/21 21:56 37.2 C 82 24 146/75 H 91 05/01/21 21:00 37.0 C 66 25 H 117/69 92 vitals, labs and imaging reviewed Coding Level of Care Code Critical Care 1st 30-74 mins Diagnoses Acute respiratory failure with hypoxia J96.01 Pneumonia due to 2019 novel coronavirus U07.1; J12.82 Obesity E66.9 Anxiety F41.9 DVT of axillary vein, acute bilateral I82.A13 Time Spent (min) 34
[2021-05-02] MEDS: oxyCODONE HCL IR 5 MG TAB (IMMEDIATE RELEASE) PO SCH ×4 (09:16→20:04)
[2021-05-02] MEDS: ENOXAPARIN INJ 120 MG/0.8 ML SYR SQ SCH ×2 (09:16→19:42)
[2021-05-02] MEDS: clonazePAM 1 MG TAB PO SCH ×3 (09:16→20:04)
[2021-05-02] MEDS: POLYETHYLENE (MIRALAX) 17 GM PACK PO SCH (09:19)
[2021-05-02] MEDS: LACTULOSE SYRUP 20 GM/30 ML UDC PO SCH (09:19)
[2021-05-02] MEDS: DOCUSATE SODIUM/SENNA 50/8.6MG TAB PO SCH (09:19)
[2021-05-02] MEDS: dexAMETHasone 6 MG in SYRINGE 0 ML IV SCH (09:21)
[2021-05-02] MEDS: PANTOprazole 40 MG in SYRINGE 0 ML IV SCH (11:04)
[2021-05-02] MEDS ORDERED: INSULIN GLARGINE SOLOSTAR 100 UNITS/ML 3 ML PEN SC ONE (11:15)
--- NOTE | 2021-05-02 12:17 | Pharmacy Report ---
Pharmacy Glycemic Short Note 2 - Date of Service May 02, 2021 - Glycemic Short BSG Results (Last 24 hours): 05/01/21 05/01/21 05/01/21 14:37 15:20 16:29 Glucose POC Glucose 240 H 263 H 249 H 05/01/21 05/01/21 05/01/21 17:29 18:22 19:33 Glucose POC Glucose 215 H 203 H 174 H 05/01/21 05/01/21 05/02/21 21:46 23:40 00:35 Glucose POC Glucose 180 H 128 H 138 H 05/02/21 05/02/21 05/02/21 01:32 02:24 04:36 Glucose POC Glucose 131 H 141 H 148 H 05/02/21 05/02/21 05/02/21 04:48 06:25 08:15 Glucose 146 H POC Glucose 120 H 125 H 05/02/21 11:08 Glucose POC Glucose 170 H OUTPATIENT ANTIDIABETIC REGIMEN: * Metformin 1000 mg PO BID * Dulaglutide 3 mg SQ weekly on Thu * A1c: 9.2% (04/17/21) ASSESSMENT: 05/02: * S/p trach 05/01. Peptamen @ goal. Weaning sedation. Norepinephrine discontinued. Dex continues - will d/c 05/03. * Insulin infusion @ stable rate; 3-4units/hr. * Plan to give Lantus 30 units X 1 today to assist with coming off of the insulin drip. Continue insulin infusion today (OK if it weans itself off). Re- evaluate basal insulin in AM. * No change to Novolog 04/30 * Remains intubated. Steroids tapered today. Tubefeeds adjusted to Peptamen VHP yesterday. Possible trach upcoming. Norepi continues, albeit at a low dose * Insulin infusion running at a stable rate, ranging 3.4-4.3 units/hr for the last ~48 hours * Continue insulin drip with Novolog coverage for CHO due to multiple stressors 04/28: * Remains intubated, sedated, paralyzed and on pressors. * TFs changes to Peptamen today and patient remains on IV dex. * Insulin infusion still running at ~4 units/hr. Given numerous acute stressors, continue IV insulin infusion per protocol with Novolog (CR 3) to cover tube feeds. 04/26: * Remains intubated, sedated and paralyzed. Norepi @ 0.05mcg/kg/min. Renal function steady with SCr ~ 2.1. * Novasource @ trickle. Dexamethasone 10mg daily continues. Proning X 16hr today. * BSGs have trended down to goal with insulin drip. Infusion running @ ~6units/hr the majority of the evening into today. Given most recent BSGs this AM 118 and 111, discussed with RN to empirically reduce drip rate by about 20% to 4.5 unit/hr w/ repeat BSG @ 1300. * Given numerous acute stressors, continue IV insulin infusion per protocol with Novolog (CR 3) to cover tube feeds. 04/25: * Patient required intubation last evening. This AM patient is intubated, sedated, paralyzed, receiving pressors (norepi @0.07mcg/kg/min), new ZEN, IV steroid dose increased, Peptamen tube feeds initiated last night however being changed to Novasource renal at "trickle" rates. New dx of DVTs, possible PE. IV thrombolysis planned followed by IV heparin infusion. * BSGs did climb overnight to mid-200s this AM. This is prior to receiving today's dose of IV steroid and changing to a carb heavy feeding. IV insulin infusion will be initiated per protocol, may also have added benefit in hyperkalemia 04/24 * Worsening resp distress noted overnight. Patient decompensated despite proning. Hospitalist notified, IV dexamethasone admin early. * Pt noted to be hypoglycemic overnight. BSGs recovered following IV D50. Not tolerating PO with breakfast this AM. * Withheld AM NPH due to recent hypo as well as poor PO and anticipated poor PO today. Will give reduced NPH dose this afternoon as BSGs climbing again. Will reeval NPH needs tomorrow AM. * Continue "severe" stress Novolog doses however decrease correctional insulin doses given HS and overnight 04/21: * Blood sugars continue to trend up with steroid throughout the day and then drop overnight * Tighten CF/CR AC and increase NPH to cover steroid effects * Loosen HS, and DC Lantus to prevent AM hypoglycemia 04/19: * Fasting improved with addition of 10 units of lantus, will continue scale for PM tonight * Continued same NPH dose (0.4 unit/kg adjbw) with dexamethasone and tightedn carb ratio, lunch BSG improved continue to monitor for additional changes PLAN FOR INPATIENT GLYCEMIC CONTROL: * Hold outpatient diabetes medications (metformin, Trulicity) * Continue IV insulin per protocol, goal range 110-180mg/dL * Lantus 30 units SQ X 1 * Bolus insulin * NovoLog Q 4 hrs to cover carbs in tube feeds. * Nutritional / Prandial insulin per carb ratio of 1 unit per 3 grams CHO delivered in continuous tube feeds PLAN FOR DISCHARGE: * HbA1c: 9.2% suggests poor outpatient glycemic control * Reasonable to continue metformin and Trulicity at discharge if no contraindications * Consider addition of second oral agent that would minimize weight gain/promote weight loss, such as SGLT2 inhibitor * Initial dosing of empagliflozin would be 10 mg PO daily * Alternatively, if patient agreeable to insulin, could consider once daily basal insulin (although, concern for insulin-induced weight gain)
[2021-05-02] MEDS: PEPTAMEN INTENSE VHP 1.0 CAL 1,000 ML BAG OG SCH (14:27)
--- NOTE | 2021-05-02 16:36 | Hospitalist Progress Note ---
Date of Service May 02, 2021 Assessment & Plan (1) Acute respiratory failure with hypoxia: (2) Pneumonia due to 2019 novel coronavirus: Plan: 51-year-old male with PMH of DM type II, HTN, obesity, GERD, HTN, anxiety and FARNAZ on CPAP presented 04/16 for evaluation of shortness of breath. Tested positive for COVID-19 on 04/06. Patient unvaccinated. At presentation to the ED, patient required 15 L oxygen to maintain saturation. Is being managed for the following: #. Acute respiratory failure with hypoxia #. 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 Intubated on 04/24 for respiratory distress --> 05/01 tracheostomy done. Finished course of Rocephin. Patient tracheostomy status/mechanically ventilated and sedated. Currently on fentanyl/Versed/insulin/propofol drips. Plan to wean them down today. ICU team managing. Continue with GI prophylaxis. #. AKIresolved #. Acute DVT BLE Status post TPA earlier in hospital course On therapeutic Lovenox Disposition: ICU. Admission and Anticipated Discharge Date Admission Date: April 16, 2021 Subjective Patient being managed for acute respiratory failure secondary to pneumonia due to COVID-19 virus. Patient lying in bed, tracheostomy status, sedated, mechanically ventilated. ROS n/a d/t vent and sedation. Per RN, no new acute events overnight. Patient on tube feed and is getting propofol/fentanyl/Versed/insulin drips as yesterday and plan to wean them down today per RN.. Physical Exam Physical Exam: GENERAL: Sedated, intubated, mechanically ventilated. HEENT: No pallor, no icterus. Pupils equal, round and reactive to light. Oral mucosa dry. NECK: No JVD, no neck masses. HEART: S1 and S2 heard. Regular rate and rhythm. No murmur, no gallop. RESPIRATORY SYSTEM: Normal AP diameter. No accessory muscle use. No wheezing, bilateral diffuse crackles intermixed with conducted/mechanical cough breath sounds. ABDOMEN: Soft, bowel sounds present, nontender, no distention. Some left-sided hardening of the subcutaneous tissue noted in the belly. Per RN -->Per his this is chronic. CENTRAL NERVOUS SYSTEM: No facial droop. Speech is clear. Obeys simple commands. Moves extremities. EXTREMITIES: No edema, no erythema seen. Urinary catheter in situ with dark yellow urine collection. Results & Data Results & Data ([facility]) Vital Signs (Past 12 Hours) Vital Signs Temp Pulse Resp BP Pulse Ox 05/02/21 13:01 37.5 C 86 27 H 161/79 H 92 05/02/21 13:00 37.5 C 81 24 91 05/02/21 12:06 75 27 H 88 L 05/02/21 12:00 37.6 C H 100 H 19 111/78 90 05/02/21 11:00 37.6 C H 92 H 24 120/76 90 05/02/21 10:00 37.7 C H 89 26 H 133/85 90 05/02/21 09:00 37.6 C H 96 H 21 124/72 89 L 05/02/21 08:00 37.8 C H 86 28 H 135/81 90 05/02/21 07:18 92 H 28 H 91 05/02/21 07:00 37.7 C H 92 H 22 139/84 90 05/02/21 06:00 37.6 C H 94 H 22 134/76 91 05/02/21 05:00 37.6 C H 95 H 21 128/79 90
[2021-05-02] MEDS ORDERED: STAT IV Infusion **Titration per Protocol STA (16:48)
[2021-05-02] MEDS: niCARdipine 25 MG in SODIUM CHLORIDE 0.9% 240 ML IV SCH ×3 (17:05→22:00)
[2021-05-03] MEDS: INSULIN ASPART PER UNIT SC SCH ×6 (00:07→20:28)
[2021-05-03] MEDS: TUBE FEEDING WATER FLUSH GT SCH ×4 (01:01→10:57)
[2021-05-03] MEDS: oxyCODONE HCL IR 5 MG TAB (IMMEDIATE RELEASE) PO SCH ×6 (01:04→20:29)
[2021-05-03 04:54] LABS: Basophils # (auto) 0.03 K/uL (0-0.2); Basophils % (auto) 0.2 %; Eosinophils # (auto) 0.01 K/uL (0-0.5); Eosinophils % (auto) 0.1 %; Hemoglobin 11.4 g/dL (14.0-18.0); Immature Granulocytes # (auto) 0.51 K/uL (0.00-0.02); Immature Granulocytes % (auto) 3.7 %; Lymphocytes # (auto) 1.09 K/uL (1.2-3.4); Mean Corpuscular Hemoglobin 29.9 pg (25-34); Mean Corpuscular Volume 99.7 fL (80-100); Mean Platelet Volume 10.3 fL (7.4-10.4); Monocytes # (auto) 0.55 K/uL (0.11-0.59); Neutrophils # (auto) 11.52 K/uL (1.4-6.5); Platelet Count 283 K/uL (130-400); RDW Coefficient of Variation 14.5 % (11.5-14.5); RDW Standard Deviation 52.9 fL (36.4-46.3); Red Blood Count 3.81 M/uL (4.7-6.1); White Blood Count 13.71 K/uL (4.8-10.8)
[2021-05-03 05:00] LABS: iSTAT Art Bld Gas pCO2 Correct 111 mmHg (35-46); iSTAT Art Bld Gas pH Corrected 7.222 (7.35-7.45); iSTAT Arterial Blood Gas HCO3 45 meg/L (19-24); iSTAT Arterial Blood Gas pCO2 108 mmHg (35-46); iSTAT Arterial Blood Gas pH 7.23 (7.35-7.45); iSTAT Arterial Blood Gas pO2 75 mmHg (80-95); iSTAT Arterial Blood Gas pO2 C 80; iSTAT Carbon Dioxide > 40 mmol/L (24-31); iSTAT FiO2 65 %; iSTAT Hematocrit 34 % (42-52); iSTAT Hemoglobin 11.6 g/dl (14.0-18.0); iSTAT Potassium 5.7 mmol/L (3.3-5.0); iSTAT Site Art Line; iSTAT Sodium 137 mmol/L (135-144)
[2021-05-03 05:42] LABS: BUN Creatinine Ratio 55.7 (10-20); Calcium 9.1 mg/dl (8.5-10.1); Creatinine Clr Calc Pharmacy 140.6 ml/min; Est GFR (African American) 118.8 ml/min; Est GFR (Non-African American) 102.5 ml/min; Magnesium 2.1 mg/dl (1.7-2.4); Phosphorus 3.6 mg/dl (2.5-4.9); Potassium 5.7 mmol/L (3.5-5.1)
[2021-05-03] MEDS: PEPTAMEN INTENSE VHP 1.0 CAL 1,000 ML BAG OG SCH (06:04)
[2021-05-03] MEDS ORDERED: STAT IV STA (06:26)
[2021-05-03] MEDS ORDERED: CALCIUM GLUCONATE 10% 1,000 MG in DEXTROSE 5% 50 ML IV ONE (06:26)
[2021-05-03] MEDS ORDERED: DEXTROSE 50% 50 ML SYRINGE IV ONE (06:29)
[2021-05-03] MEDS ORDERED: INSULIN HUMAN REGULAR PER UNIT 6 UNITS in SYRINGE 5.94 ML IV ONE (06:30)
[2021-05-03] MEDS: ENOXAPARIN INJ 120 MG/0.8 ML SYR SQ SCH ×2 (07:32→20:22)
[2021-05-03] MEDS: DOCUSATE SODIUM/SENNA 50/8.6MG TAB PO SCH (07:33)
[2021-05-03] MEDS: LACTULOSE SYRUP 20 GM/30 ML UDC PO SCH (07:33)
[2021-05-03] MEDS: POLYETHYLENE (MIRALAX) 17 GM PACK PO SCH (07:34)
[2021-05-03] MEDS: dexAMETHasone 6 MG in SYRINGE 0 ML IV SCH (07:45)
[2021-05-03] MEDS: clonazePAM 1 MG TAB PO SCH ×3 (07:45→20:29)
--- NOTE | 2021-05-03 07:51 | XRay Report ---
XR chest 1V portable CLINICAL HISTORY: f/u COMPARISON STUDY: Chest radiograph May 02, 2021. FINDINGS: Right subclavian central line remains in place. There is a tracheostomy tube. Tip of feedin g tube is below the lower aspect of this image but at least within the body of the stomach. Cardiomed iastinal silhouette is stable. There is no pneumothorax or pleural effusion. Extensive bilateral airs pace opacities are similar to prior study. IMPRESSION: 1. Satisfactory positioning of lines and tubes. 2. No significant change in extensive bilateral airspace opacities. ACT 112: Negative or not required by law. Electronically signed by: Reynaldo Michel M.D. 05/03/2021 7:50 AM
[2021-05-03] MEDS: MIDAZOLAM HCL 125 MG/250 ML BAG IV SCH ×2 (07:54→17:53)
[2021-05-03] MEDS: INSULIN REGULAR 250 UNITS in SODIUM CHLORIDE 0.9% 247.5 ML IV SCH ×2 (07:54→11:17)
[2021-05-03] MEDS: ACETAMINOPHEN SUSP 325 MG/10.15 ML UDC OG PRN ×2 (07:58→17:51)
[2021-05-03] MEDS: fentaNYL citrate 2,500 MCG/250 ML BAG IV SCH ×2 (10:09→17:53)
[2021-05-03] MEDS: PANTOprazole 40 MG in SYRINGE 0 ML IV SCH (10:56)
[2021-05-03] MEDS: amLODIPine BESYLATE 5 MG TAB PO SCH (10:56)
[2021-05-03] MEDS ORDERED: INSULIN GLARGINE SOLOSTAR 100 UNITS/ML 3 ML PEN SC ONE (11:00)
[2021-05-03 11:04] LABS: iSTAT Arterial Blood Gas HCO3 47 meg/L (19-24); iSTAT Arterial Blood Gas pCO2 99 mmHg (35-46); iSTAT Arterial Blood Gas pH 7.28 (7.35-7.45); iSTAT Arterial Blood Gas pO2 80 mmHg (80-95); iSTAT Carbon Dioxide > 40 mmol/L (24-31); iSTAT FiO2 65 %; iSTAT Site Art Line
[2021-05-03 11:05] LABS: BUN Creatinine Ratio 52.3 (10-20); Blood Urea Nitrogen 45 mg/dl (6-23); Calcium 9.4 mg/dl (8.5-10.1); Carbon Dioxide > 45 mmol/L (21-32); Chloride 96 mmol/L (98-107); Creatinine Clr Calc Pharmacy 129.2 ml/min; Est GFR (African American) 114.7 ml/min; Glucose 206 mg/dl (70-99(Fasting)); Potassium 5.3 mmol/L (3.5-5.1); Sodium 141 mmol/L (136-145)
[2021-05-03] MEDS: TUBE FEEDING WATER FLUSH OG SCH ×4 (12:01→22:42)
--- NOTE | 2021-05-03 12:03 | Critical Care Progress Note ---
Date of Service May 03, 2021 Assessment & Plan (1) Acute respiratory failure with hypoxia: (2) Pneumonia due to 2019 novel coronavirus: (3) Obesity: (4) Anxiety: (5) DVT of axillary vein, acute bilateral: Plan: Reason Critically Ill: Acute hypoxic respiratory failure secondary to COVID-19 pneumonia PLAN: Neuro: Patient with ongoing encephalopathy likely related to ICU delirium and sedation. Given his ongoing fevers will obtain a CT of his head to evaluate for a central etiology of his fevers and his encephalopathy. Continue to aggressively wean sedation as able. Continue oxycodone 15 mg every 4 hours and Klonopin1 mg, 3 times daily to allow for weaning of continuous sedation. Resp: Ongoing severe ARDS. Patient status post percutaneous tracheostomy placement 05/02/21. Unfortunately he has a very large air leak. Requested ENT to evaluate the tracheostomy for possible revision. Will likely go to the OR today for further evaluation and placement of an XLT Shiley tracheostomy. We will obtain a CT of the chest with contrast to evaluate for pulmonary embolism and to further prognosticate the ARDS given his severe hypoxemic respiratory failure. Ongoing hypercapnic respiratory failure likely due to poor ventilation given the air leak from the tracheostomy. Continue lung protective ventilation strategy. He did receive systemic TPA earlier in the hospital course due to a DVT and a presumptive pulmonary embolism. Continue therapeutic Lovenox given the DVT. Completed Decadron dosing for COVID-19. CRP 04/29 3.16 which is considerably down from prior CRP levels. CV: Severe hypertension. Will initiate Norvasc 10 mg daily. Attempt to wean nicardipine as able. Continue to use hydralazine. To maintain systolic blood pressures under 160. Will evaluate brain with a CT head to evaluate for finding such as a subarachnoid hemorrhage as noted above. Lower extremity arterial ultrasound of the right leg 05/01 without arterial occlusion or hemodynamically significant stenosis. Fluids/Renal: Hyperkalemia seen today of 5.7 with improvement of 5.3 on 10 AM labs. Patient with severe metabolic alkalosis secondary to hypercapnic respiratory failure. Will initiate acetazolamide 250 mg twice daily for 4 doses. He is -1.3 L since admission. ID: Sputum cultures from 05/02 - thus far. Blood cultures from 04/25 with no growth. Fungal blood cultures from 04/25 with no growth as well. Pro-Tomás from 1/27 0.24. No clear signs of infection of bacterial origin, but patient with continued fevers. Please see above for possibility of central fever or fever from clots burden. Will obtain u/a. ?Sinusitis. ?Fever from ongoing covid inflammatory cascade. Will empirically start zosyn and repeat procal tomorrow. Mild leukocytosis which appears stable. GI/Nutrition: Continue aggressive bowel regimen including senna, MiraLAX, lactulose and senna. Received methylnaltrexone earlier in his hospital course. Underwent a CT abdomen and pelvis on 04/30 due to concerns of a hematoma given the solid appearing mass within his abdomen. Patient has a history of postsurgical changes and heterotrophic calcifications in the anterior abdominal wall. CT also noted gas fluid level in the colon which may reflect an ileus. No obstruction was seen. No evidence of hematoma. Heme: Acute DVT s/p tpa earlier in hospital course DVT prophylaxis: Therapeutic Lovenox Endocrine: ICU hyperglycemia protocol Continue insulin gtt with elevated BSG Vascular access: Right subclavian central venous access, right radial art line Code Status: Full code Disposition: ICU No family readily available at bedside. Prognosis very guarded. CRITICAL CARE TIME - I have personally spent 55 minutes of critical care time in the direct management of this patient. This is a life/limb threatening event. This includes time spent evaluating patient, direct bedside care, chart review, placing orders, interpretation of diagnostic studies, discussion with consultants, patient, and family members, as well as other required patient management activities. This time is exclusive of all separately billable procedures, and teaching time and separate from and in addition to any other critical care service time. Admission and Anticipated Discharge Date Admission Date: April 16, 2021 Subjective Patient seen and examined. He has a large tracheostomy cuff leak. He has had increasing ventilatory demands and requirements. Continues on infusions of fentanyl and Versed. Additionally on nicardipine due to ongoing hypertension. Not following commands at this time. Review of Systems Review of Systems: Unobtainable due to endotracheal tube and Unobtainable due to reduced consciousness Physical Exam Physical Exam: Constitutional: Morbidly obese appearing male currently on the ventilator. Not following commands. Eyes: Pupils are equal round and reactive to light. Conjunctivae are normal. Anicteric sclera. Ears nose, mouth and throat: Tracheostomy in place with audible cuff leak. Neck: Midline. Trach in place as above. Respiratory: Coarse and diminished breath sounds. Tachypneic. Cardiovascular: Tachycardic. Mildly edematous in lower extremities. Regular rhythm. Gastrointestinal: Very firm appearing mass in the left mid quadrant. Otherwise soft. Bowel sounds minimal. Musculoskeletal: Extremities intact. Skin: No rashes, warm dry and intact. Neurologic: Nonresponsive to commands. No focal signs. Psychiatric: Unable to assess. Results & Data Results & Data ([facility]) Vital Signs (Past 12 Hours) Vital Signs Temp Pulse Resp BP Pulse Ox 05/03/21 11:30 37.9 C H 100 H 32 H 94 05/03/21 11:00 37.9 C H 100 H 32 H 127/75 93 05/03/21 10:30 37.9 C H 99 H 32 H 134/73 90 05/03/21 10:00 37.9 C H 97 H 32 H 132/74 92 05/03/21 09:30 37.9 C H 102 H 32 H 134/74 92 05/03/21 09:00 37.9 C H 105 H 32 H 133/72 91 05/03/21 08:30 37.9 C H 107 H 32 H 143/75 H 91 05/03/21 08:20 106 H 33 H 91 05/03/21 08:00 37.8 C H 109 H 32 H 147/76 H 90 05/03/21 07:30 37.8 C H 103 H 32 H 144/74 H 91 05/03/21 07:00 37.7 C H 96 H 28 H 137/78 90 05/03/21 06:00 37.7 C H 96 H 32 H 128/75 91 05/03/21 05:30 37.7 C H 104 H 45 H 122/73 92 05/03/21 05:00 37.7 C H 102 H 35 H 91 05/03/21 04:55 32 H 05/03/21 04:00 37.8 C H 103 H 42 H 89 L 05/03/21 03:25 103 H 26 H 92 05/03/21 03:00 37.8 C H 103 H 23 89 L 05/03/21 02:00 37.9 C H 103 H 26 H 89 L 05/03/21 01:00 37.9 C H 98 H 26 H 144/84 H 92 05/03/21 00:00 37.8 C H 101 H 21 129/76 90 Coding Level of Care Code Critical Care 1st 30-74 mins Diagnoses Acute respiratory failure with hypoxia J96.01 Pneumonia due to 2019 novel coronavirus U07.1; J12.82 Obesity E66.9 Anxiety F41.9 DVT of axillary vein, acute bilateral I82.A13 Time Spent (min) 55
--- NOTE | 2021-05-03 12:05 | Anesthesiology Consultation ---
Date of Service May 03, 2021 Assessment & Plan (1) Encounter for pre-operative examination: Chart Review Chart Review: key entry operator initiated History Surgery Operation Date: 05/03/21 10:30 Proposed Procedures p Tracheostomy - Fannie Stein MD Operation Date: 05/03/21 12:15 Proposed Procedures p Trach Change Possible Revision - Fannie Stein MD Height/Weight Height: 6 ft Weight: 113.4 kg Allergies Allergy/AdvReac Type Severity Reaction Status Date / Time methylparaben Allergy Mild ITCHING Unverified 04/16/21 14:03 oxymorphone Allergy Mild ITCHING Unverified 04/16/21 14:03 Medications Home Medications Medication Instructions Recorded Confirmed Last Taken metformin 1,000 mg tablet 1,000 mg PO BIDWMEAL #0 tab 05/04/12 04/16/21 Unknown acetaminophen 650 mg tablet 650 mg PO Q4H PRN #0 tab 10/22/12 04/16/21 Unknown albuterol sulfate 90 mcg/actuation 2 puff INHALATION Q4H PRN 04/16/21 04/16/21 Unknown aerosol inhaler dulaglutide 3 mg/0.5 mL 3 mg SUBCUT WK 04/16/21 04/16/21 Unknown subcutaneous pen injector (Trulicity) hydrochlorothiazide 25 mg tablet 25 mg PO DAILY 04/16/21 04/16/21 Unknown omeprazole 20 mg capsule,delayed 20 mg PO DAILY 04/16/21 04/16/21 Unknown release prednisone 10 mg tablet 10 mg PO UD 04/16/21 04/16/21 Unknown testosterone cypionate 200 mg/mL 200 mg IM UD 04/16/21 04/16/21 Unknown intramuscular oil Active Medications Generic Name Dose Route Start Last Admin Trade Name Freq PRN Reason Stop Dose Admin Acetaminophen 650 mg 04/24/21 22:24 04/25/21 13:23 Acetaminophen 650 Mg Supp MT 05/24/21 22:23 650 mg Q4H PRN Administration Fever Acetaminophen 650 mg 04/25/21 10:47 05/03/21 07:58 Acetaminophen Susp 325 Mg/10.15 Ml Udc OG 05/25/21 10:46 650 mg Q4H PRN Administration Fever Amlodipine Besylate 10 mg 05/03/21 10:00 05/03/21 10:56 Amlodipine Besylate 5 Mg Tab PO 06/02/21 09:59 10 mg QAM PHYLLIS Administration Clonazepam 1 mg 05/02/21 09:00 05/03/21 07:45 Clonazepam 1 Mg Tab PO 06/01/21 08:59 1 mg TID PHYLLIS Administration Dextrose 25 - 50 ml 04/16/21 16:49 04/24/21 01:55 Dextrose 50% 50 Ml Syringe IV 05/16/21 16:48 50 ml UD PRN Administration Hypoglycemia Protocol Protocol Enoxaparin Sodium 111 mg 04/27/21 08:00 05/03/21 07:32 Enoxaparin Inj 120 Mg/0.8 Ml Syr SQ 05/27/21 07:59 111 mg Q12H PHYLLIS Administration Fentanyl Citrate 2,500 mcg in 250 mls @ 10 mls/hr 04/24/21 17:45 05/03/21 10:09 Fentanyl Citrate IV 05/08/21 17:44 Not Given .Q25H PHYLLIS Protocol 100 MCG/HR Midazolam HCl 125 mg in 250 mls @ 4 mls/hr 04/24/21 19:00 05/03/21 09:38 Versed IV 05/24/21 18:59 2 mg/hr .[id number] PHYLLIS 4 mls/hr Titration Protocol 2 MG/HR Pantoprazole Sodium 40 mg/ 10 mls @ 5 mls/min 04/25/21 11:00 05/03/21 10:56 Syringe IV 05/25/21 10:59 5 mls/min DAILY@1100 PHYLLIS Administration Insulin Human Regular 250 250 mls @ 9.2 mls/hr 04/25/21 11:00 05/03/21 11:17 units/ Sodium Chloride IV 05/25/21 10:59 9.2 units/hr .Q24H PHYLLIS 9.2 mls/hr Administration Protocol 9.2 UNITS/HR Nicardipine HCl 50 mg/ Sodium 250 mls @ 37.5 mls/hr 05/02/21 21:15 05/03/21 11:28 Chloride IV 06/01/21 21:14 7.5 mg/hr .[id number] PHYLLIS 37.5 mls/hr Titration Protocol 7.5 MG/HR Insulin Aspart 0 units 04/24/21 20:00 05/03/21 10:57 Insulin Aspart Per Unit SC 05/24/21 19:59 Not Given Q4 PHYLLIS Protocol Lactulose 20 gm 04/26/21 09:00 05/03/21 07:33 Lactulose Syrup 20 Gm/30 Ml Udc PO 05/26/21 08:59 20 gm DAILY PHYLLIS Administration Oxycodone HCl 15 mg 05/02/21 08:30 05/03/21 07:45 Oxycodone Hcl Ir 5 Mg Tab (Immediate Release) PO 05/16/21 08:29 15 mg Q4H PHYLLIS Administration Polyethylene Glycol 17 gm 04/29/21 10:30 05/03/21 07:34 Polyethylene (Miralax) 17 Gm Pack PO 05/29/21 10:29 17 gm DAILY PHYLLIS Administration Senna/Docusate Sodium 2 tab 04/30/21 09:00 05/03/21 07:33 Docusate Sodium/Senna 50/8.6mg Tab PO 05/30/21 08:59 2 tab QAM PHYLLIS Administration Sterile Water 100 ml 05/03/21 11:48 05/03/21 12:01 Tube Feeding Water Flush OG 06/02/21 11:47 Not Given Q4H PHYLLIS Past Medical History Medical History DM type 2 (diabetes mellitus, type 2) HTN (hypertension) Obesity FARNAZ on CPAP Past Family History Family History Father Diabetes Hypertension Past Surgical History Surgical History H/O laminectomy x 2 History of appendectomy Social History Smoking Status: Never smoker Do You Dip or Chew Tobacco: No Hx Alcohol Use: Yes Alcohol type: beer alcohol intake frequency: holidays/special occasions only Hx Substance Use: No Physical Exam Vital Signs Last Vital Signs Temp 100.2 F H 05/03/21 11:30 Pulse 100 H 05/03/21 11:30 Resp 32 H 05/03/21 11:30 BP 127/75 05/03/21 11:00 Pulse Ox 94 05/03/21 11:30 Testing Laboratory Results 05/03/21 04:26 05/03/21 10:01 PT 11.5 Seconds (9.0-12.0) 04/25/21 11:47 INR 1.1 (0.9-1.1) 04/25/21 11:47 APTT 38.2 Seconds (21.0-31.0) H 04/27/21 03:19 Hemoglobin A1c 9.2 % (4.5-5.6) H 04/17/21 07:27 Urine Color Yellow 04/16/21 15:12 Urine Appearance Clear (Clear) 04/16/21 15:12 Urine pH 5.5 (4.5-7.5) 04/16/21 15:12 Ur Specific [place] 1.022 (1.000-1.030) 04/16/21 15:12 Urine Protein Negative (Negative) 04/16/21 15:12 Urine Glucose (UA) 3+ (Negative) H 04/16/21 15:12 Urine Ketones 2+ (Negative) H 04/16/21 15:12 Urine Nitrite Negative (Negative) 04/16/21 15:12 Ur Leukocyte Esterase Negative (Negative) 04/16/21 15:12 Blood Type O Positive 04/25/21 11:47 Antibody Screen NEGATIVE 04/25/21 11:47 05/02/21 15:05 Gram Stain - Final Sputum,Vent Suction 04/25/21 10:47 Aerobic Blood Culture - Final Blood No growth in Aerobic bottle after 5 days. Anaerobic Blood Culture - Final No growth in Anaerobic bottle after 5 days. 04/25/21 10:40 Aerobic Blood Culture - Final Blood No growth in Aerobic bottle after 5 days. Anaerobic Blood Culture - Final No growth in Anaerobic bottle after 5 days. 04/25/21 10:40 Fungal Smear - Final Blood Fungal Culture - Preliminary No yeast or fungus isolated - Report 1, Additional Report to Follow. 04/24/21 17:15 Gram Stain - Final Sputum, Expectorated Sputum Culture - Final Heavy normal barbara. 04/16/21 12:05 Aerobic Blood Culture - Final Blood No growth in Aerobic bottle after 5 days. Anaerobic Blood Culture - Final No growth in Anaerobic bottle after 5 days. 04/16/21 11:42 Aerobic Blood Culture - Final Blood No growth in Aerobic bottle after 5 days. Anaerobic Blood Culture - Final No growth in Anaerobic bottle after 5 days. 05/03/21 05/03/21 05/03/21 10:51 10:06 08:44 POC Glucose 194 H 211 H 208 H 05/03/21 05/03/21 05/03/21 07:37 06:36 06:06 POC Glucose 182 H 217 H 204 H 05/03/21 05/03/21 05/03/21 04:42 03:53 02:42 POC Glucose 248 H 218 H 227 H 05/03/21 05/03/21 05/03/21 02:40 01:39 00:39 POC Glucose 237 H 210 H 207 H Laboratory Tests 04/16/21 14:27 SARS-CoV-2 (PCR) POSITIVE A* Electrocardiogram Date: 04/16/21 Sinus tachycardia, rate 106 bpm Otherwise normal ECG When compared with ECG of 20-SEP-2012 12:45, No significant change Confirmed by Josias Galicia ([id number]) on 04/16/2021 12:51:39 PM Chest X-Ray Date: 05/03/21 FINDINGS: Right subclavian central line remains in place. There is a tracheostomy tube. Tip of feeding tube is below the lower aspect of this image but at least within the body of the stomach. Cardiomediastinal silhouette is stable. There is no pneumothorax or pleural effusion. Extensive bilateral airspace opacities are similar to prior study. IMPRESSION: 1. Satisfactory positioning of lines and tubes. 2. No significant change in extensive bilateral airspace opacities.
[2021-05-03] MEDS ORDERED: PIPERACILL/TAZOBAC CONSULT ACTIVE PRN (12:12)
[2021-05-03] MEDS ORDERED: PIPERACILLIN/TAZOBACTAM 3.375 GM in DEXTROSE 5% 100 ML IV SCH (12:15)
[2021-05-03] MEDS ORDERED: PIPERACILLIN/TAZOBACTAM 4.5 GM in DEXTROSE 5% 100 ML IV ONE (13:30)
--- NOTE | 2021-05-03 13:38 | Procedure Note ---
Procedure Note Date of Service May 03, 2021 Supervising Physician Co-Signing Physician Notes INTUBATION, bronchoscopy and tracheostomy exchange PROCEDURE NOTE: Dr. Lauri Diaz Procedure was performed due to loss of airway and hypoxemic respiratory failure. Tracheostomy exchange was attempted at bedside with Dr. Stein. The previous tracheostomy was removed and a new size 8 XLT Shiley was attempted to be placed by Dr. Stein over an exchange catheter, but it was difficult to reinsert the tracheostomy due to the size of the original tracheal stoma. The patient began to have desaturations and I emergently intubated the patient with the use of a g lide scope. A size 8 endotracheal tube was placed emergently utilizing glide scope with improvement of oxygen saturations to the low 90s. Continuous Versed and fentanyl were infusing in the time of the procedure. I then inserted the bronchoscope and evaluated the placement of the endotracheal tube. The endotracheal tube appeared to be 2 to 3 cm above the evelyn. Adequate ventilation was established. I also evaluated the stoma site with the bronchoscope and I was able to see the endotracheal tube. I did attempt to insert the tracheostomy over the bronchoscope, but was unsuccessful as the tract was too small. The plan will be for Dr. Stein to perform a tracheal revision in the OR now that the patient is intubated. Post Intubation Chest X-ray ordered. Coding CPT Codes Resuscitation - Resuscitation: 41579 Endotracheal Intubation, emergency ([id number]) Pulmonary/Thoracic - Pulmonary and Thoracic: 70314 Tracheotomy tube change ([id number]) Pulmonary/Thoracic - Pulmonary and Thoracic: 56524 Bronchoscopy, clear airways ([id number]) [facility] Procedure Codes (Charges) Pulmonary/Thoracic Procedure 1: Pulmonary and Thoracic: 66097 Tracheotomy tube change Procedure 2: Pulmonary and Thoracic: 53432 Bronchoscopy, clear airways Resuscitation Resuscitation: 42209 Endotracheal Intubation, emergency
--- NOTE | 2021-05-03 13:51 | Ears,Nose,Throat Progress Note ---
Date of Service May 03, 2021 Assessment & Plan (1) COVID-19: Plan: Large air leak. Deteriorating. With Dr. Wang on standby I try to change the tracheostomy tube with exchange catheter and was not successful. I did not want to create a false fistula. Therefore we elected to intubate the patient successfully done by social welfare administrator. Will perform formal tracheostomy this afternoon. (2) Acute respiratory failure with hypoxia: Admission and Anticipated Discharge Date Admission Date: April 16, 2021 Subjective Patient seen and examined. He has a large tracheostomy cuff leak. He has had increasing ventilatory demands and requirements. Continues on infusions of fentanyl and Versed. Additionally on nicardipine due to ongoing hypertension. Not following commands at this time. Physical Exam Constitutional: + ill appearing Eyes: PERRL, conjunctivae normal, anicteric sclerae ENMT: Intubated Neck: Trach exchange with an successful, intubated Results & Data ([facility]) Vital Signs (Past 12 Hours) Vital Signs Temp Pulse Resp BP Pulse Ox 05/03/21 12:10 163/59 H 05/03/21 11:30 37.9 C H 100 H 32 H 94 05/03/21 11:00 37.9 C H 100 H 32 H 127/75 93 05/03/21 10:30 37.9 C H 99 H 32 H 134/73 90 05/03/21 10:00 37.9 C H 97 H 32 H 132/74 92 05/03/21 09:30 37.9 C H 102 H 32 H 134/74 92 05/03/21 09:00 37.9 C H 105 H 32 H 133/72 91 05/03/21 08:30 37.9 C H 107 H 32 H 143/75 H 91 05/03/21 08:20 106 H 33 H 91 05/03/21 08:00 37.8 C H 109 H 32 H 147/76 H 90 05/03/21 07:30 37.8 C H 103 H 32 H 144/74 H 91 05/03/21 07:00 37.7 C H 96 H 28 H 137/78 90 05/03/21 06:00 37.7 C H 96 H 32 H 128/75 91 05/03/21 05:30 37.7 C H 104 H 45 H 122/73 92 05/03/21 05:00 37.7 C H 102 H 35 H 91 05/03/21 04:55 32 H 05/03/21 04:00 37.8 C H 103 H 42 H 89 L 05/03/21 03:25 103 H 26 H 92 05/03/21 03:00 37.8 C H 103 H 23 89 L 05/03/21 02:00 37.9 C H 103 H 26 H 89 L
--- NOTE | 2021-05-03 14:03 | XRay Report ---
SINGLE VIEW CHEST CLINICAL HISTORY: Respiratory failure. Tracheostomy removal. Covid pneumonia. FINDINGS: An AP, portable, semierect chest radiograph is compared to study performed earlier the same day 05/03/2021. Correlation is made with chest CT dated 05/11/2010. The examination is degraded by port able technique and patient rotation. A tracheostomy has been removed and an endotracheal tube has bee n placed. The tip projects approximately 5 cm above the evelyn An enteric tube and a right internal j ugular central venous catheter are unchanged in position. The cardiomediastinal silhouette is unremar kable. Extensive/multifocal airspace consolidation is again noted. No large pleural effusion or pneum othorax is seen. The bony thorax is grossly intact. IMPRESSION: 1. An endotracheal tube has been placed as above. 2. The remaining lines and tubes are unchanged. 3. Multifocal airspace consolidation is unchanged from earlier today. ACT 112: Negative or not required by law. Electronically signed by: Brady Cam M.D. 05/03/2021 2:02 PM
[2021-05-03] MEDS ORDERED: LIDOCAINE 2% LOCAL 50 ML VIAL ONE (14:10)
[2021-05-03] MEDS ORDERED: LIDOCAINE 2%/EPINEPHRINE 1:100,000 20ML ONE (14:10)
--- NOTE | 2021-05-03 14:19 | Hospitalist Progress Note ---
Date of Service May 03, 2021 Assessment & Plan (1) Acute respiratory failure with hypoxia: (2) Pneumonia due to 2019 novel coronavirus: Plan: 51-year-old male with PMH of DM type II, HTN, obesity, GERD, HTN, anxiety and FARNAZ on CPAP presented 04/16 for evaluation of shortness of breath. Tested positive for COVID-19 on 04/06. Patient unvaccinated. At presentation to the ED, patient required 15 L oxygen to maintain saturation. Is being managed for the following: #. Acute respiratory failure with hypoxia #. 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 Intubated on 04/24 for respiratory distress --> 05/01 tracheostomy done --> tracheostomy leak noted/failed tracheostomy exchange at bedside---> emergent reintubation 05/03---> plan for formal tracheostomy tube placement in the OR today by ENT. Finished course of Rocephin. Patient tracheostomy status/mechanically ventilated and sedated. Currently on fentanyl/Versed/insulin/nicardipine drips. Discussed with hadoop analyst, increasing ventilatory requirements, concern for tracheostomy air leak, failed tracheostomy tube exchange, plan for formal tracheostomy tube placement, emergent intubation done today. ICU team managing. Continue with GI prophylaxis. #. AKIresolved #. Acute DVT BLE Status post TPA earlier in hospital course On therapeutic Lovenox Disposition: ICU. Admission and Anticipated Discharge Date Admission Date: April 16, 2021 Subjective Patient being managed for acute respiratory failure secondary to pneumonia due to COVID-19 virus. Patient lying in bed, tracheostomy status, sedated, mechanically ventilated. ROS n/a d/t vent and sedation. Per RN, no new acute events overnight. Patient on tube feed and is getting nicardipine/fentanyl/Versed/insulin drips. Also tube feed in situ, urinary catheter in situ. Physical Exam Physical Exam: GENERAL: Sedated, intubated, mechanically ventilated. HEENT: No pallor, no icterus. Pupils equal, round and reactive to light. Oral mucosa dry. NECK: No JVD, no neck masses. HEART: S1 and S2 heard. Regular rate and rhythm. No murmur, no gallop. RESPIRATORY SYSTEM: Normal AP diameter. No accessory muscle use. No wheezing, bilateral diffuse crackles intermixed with conducted/mechanical breath sounds. ABDOMEN: Soft, bowel sounds present, nontender, no distention. Some left-sided hardening of the subcutaneous tissue noted in the belly. Per RN -->Per his this is chronic. CENTRAL NERVOUS SYSTEM: No facial droop. Speech is clear. Obeys simple commands. Moves extremities. EXTREMITIES: No edema, no erythema seen. Urinary catheter in situ with yellow urine collection. Results & Data Results & Data ([facility]) Vital Signs (Past 12 Hours) Vital Signs Temp Pulse Resp BP Pulse Ox 05/03/21 13:25 109 H 32 H 92 05/03/21 12:10 163/59 H 05/03/21 11:30 37.9 C H 100 H 32 H 94 05/03/21 11:00 37.9 C H 100 H 32 H 127/75 93 05/03/21 10:30 37.9 C H 99 H 32 H 134/73 90 05/03/21 10:00 37.9 C H 97 H 32 H 132/74 92 05/03/21 09:30 37.9 C H 102 H 32 H 134/74 92 05/03/21 09:00 37.9 C H 105 H 32 H 133/72 91 05/03/21 08:30 37.9 C H 107 H 32 H 143/75 H 91 05/03/21 08:20 106 H 33 H 91 05/03/21 08:00 37.8 C H 109 H 32 H 147/76 H 90 05/03/21 07:30 37.8 C H 103 H 32 H 144/74 H 91 05/03/21 07:00 37.7 C H 96 H 28 H 137/78 90 05/03/21 06:00 37.7 C H 96 H 32 H 128/75 91 05/03/21 05:30 37.7 C H 104 H 45 H 122/73 92 05/03/21 05:00 37.7 C H 102 H 35 H 91 05/03/21 04:55 32 H 05/03/21 04:00 37.8 C H 103 H 42 H 89 L 05/03/21 03:25 103 H 26 H 92 05/03/21 03:00 37.8 C H 103 H 23 89 L
[2021-05-03] MEDS: acetaZOLAMIDE 250 MG in DEXTROSE 5% 100 ML IV SCH ×2 (14:24→20:28)
[2021-05-03] MEDS ORDERED: ROCURONIUM BROMIDE 10 MG/ML 5 ML VIAL IV ONE (14:26)
[2021-05-03] MEDS ORDERED: PROPOFOL IV EMULSION 10 MG/ML 20 ML VIAL IV ONE (14:26)
[2021-05-03] MEDS ORDERED: MIDAZOLAM HCL 1 MG/ML 2ML VIAL ONE (14:27)
[2021-05-03 14:33] LABS: Appearance Urine Cloudy (Clear); Bacteria Urine Automated Negative (Negative); Bilirubin Urine Negative (Negative); Blood Urine 1+ (Negative); Color Urine Yellow; Epithelial Cell Urine Auto >30 /lpf (0-5); Glucose Urine UA Negative (Negative); Ketones Urine Negative (Negative); Leukocyte Esterase Urine Trace (Negative); Nitrite Urine Negative (Negative); Protein Urine 1+ (Negative); Urobilinogen Urine Negative (Negative); pH Urine 5.5 (4.5-7.5)
[2021-05-03 14:48] LABS: Cast Urine Automated >30 /lpf (0-5)
--- NOTE | 2021-05-03 16:41 | Operative Report ---
PG Post Operative Report Pre & Post Diagnosis Operation Date: 05/03/21 10:30 <No data on this case meets the specified criteria> Operation Date: 05/03/21 12:15 Pre-Op Diagnosis: COVID PNEUMONIA, HYPOXIA Post-Op Diagnosis: COVID PNEUMONIA, HYPOXIA I identified the patient and participated in the time-out.: Yes Procedure Operation Date: 05/03/21 10:30 <No data on this case meets the specified criteria> Operation Date: 05/03/21 12:15 Actual Procedure: Revision tracheostomy after percutaneous tracheostomy failure. Not Applicable) - Fannie Stein MD Surgeon Fannie Stein MD Steward/Stewardess Chief Cargo Vessel None Estimated Blood Loss 20 Findings Consistent with Post-Op Diagnosis Specimens None Anesthesia Type General Indications This patient underwent percutaneous tracheostomy, developed huge air leak, could not really ventilate his. Had to be reintubated, brought to the OR for revision tracheostomy Description of Procedure . The patient was brought to the operating room from the ICU. He was in his bed in the supine positions with the neck hyperextended. Endotracheal tube was in place. Prepped and draped in the usual sterile manner. Incision was widened laterally using the 15 blade and then widened using the Bovie. Dissection was performed down to the trachea. It was found that the opening was in the cricothyrotomy space. Therefore the first tracheal ring was sutured and lifted superiorly along with the cricoid and then grasped with Allis forceps to retract superiorly. The incision was made below the second ring. This was a T-shaped incision with a vertical incision in the third ring. Due to frequent desaturations it was difficult to put the tracheostomy tube then. We had difficulty and tried to place 2 different size 8 XLT trach's without success. Finally a bougie was used to find the lumen and the size 6 XLT trach was placed easily with return of tidal volume. The trach was sewn in place with 4 corner stay sutures. The stay suture superiorly was taped in place. He was taken back to the ICU in satisfactory condition. I attest to the content of the Intraoperative Record and any orders documented therein. Any exceptions are noted below.
--- NOTE | 2021-05-03 17:28 | Anesthesiology Progress Note ---
Date of Service May 03, 2021 Anesthesia Post Procedure Vital Signs Vital Signs: Temp Pulse Resp BP Pulse Ox 05/03/21 14:30 38.1 C H 94 H 32 H 97 05/03/21 14:00 38.1 C H 107 H 32 H 05/03/21 13:25 109 H 32 H 92 05/03/21 13:00 38.0 C H 109 H 32 H 155/81 H 92 05/03/21 12:10 163/59 H 05/03/21 12:00 37.9 C H 107 H 32 H 136/75 93 05/03/21 11:30 37.9 C H 100 H 32 H 94 05/03/21 11:00 37.9 C H 100 H 32 H 127/75 93 05/03/21 10:30 37.9 C H 99 H 32 H 134/73 90 05/03/21 10:00 37.9 C H 97 H 32 H 132/74 92 05/03/21 09:30 37.9 C H 102 H 32 H 134/74 92 05/03/21 09:00 37.9 C H 105 H 32 H 133/72 91 05/03/21 08:30 37.9 C H 107 H 32 H 143/75 H 91 05/03/21 08:20 106 H 33 H 91 05/03/21 08:00 37.8 C H 109 H 32 H 147/76 H 90 05/03/21 07:30 37.8 C H 103 H 32 H 144/74 H 91 05/03/21 07:00 37.7 C H 96 H 28 H 137/78 90 05/03/21 06:00 37.7 C H 96 H 32 H 128/75 91 05/03/21 05:30 37.7 C H 104 H 45 H 122/73 92 05/03/21 05:00 37.7 C H 102 H 35 H 91 05/03/21 04:55 32 H 05/03/21 04:00 37.8 C H 103 H 42 H 89 L 05/03/21 03:25 103 H 26 H 92 05/03/21 03:00 37.8 C H 103 H 23 89 L 05/03/21 02:00 37.9 C H 103 H 26 H 89 L 05/03/21 01:00 37.9 C H 98 H 26 H 144/84 H 92 05/03/21 00:00 37.8 C H 101 H 21 129/76 90 05/02/21 23:15 37.7 C H 103 H 26 H 91 05/02/21 23:00 37.7 C H 103 H 22 135/77 05/02/21 22:45 37.7 C H 105 H 27 H 92 05/02/21 22:30 37.7 C H 102 H 26 H 141/83 H 91 05/02/21 22:15 37.7 C H 95 H 26 H 93 05/02/21 22:00 37.7 C H 107 H 26 H 142/78 H 05/02/21 21:45 37.8 C H 99 H 26 H 92 05/02/21 21:30 37.8 C H 99 H 26 H 90 05/02/21 21:15 37.8 C H 98 H 26 H 92 05/02/21 21:04 111 H 30 H 92 05/02/21 21:00 37.8 C H 98 H 22 133/76 05/02/21 20:45 37.8 C H 92 H 26 H 92 05/02/21 20:30 37.8 C H 90 26 H 92 05/02/21 20:15 37.8 C H 93 H 25 H 91 05/02/21 20:00 37.8 C H 107 H 26 H 145/76 H 05/02/21 19:45 37.8 C H 99 H 24 91 05/02/21 19:30 37.7 C H 100 H 29 H 91 05/02/21 19:15 37.7 C H 106 H 31 H 05/02/21 19:00 37.7 C H 97 H 29 H 147/83 H 05/02/21 18:00 37.5 C 99 H 26 H 161/92 H 88 L Transfer of Care Handoff Completed per policy Notes Mental Status: see notes below Patient Amnestic to Procedure: Yes Nausea / Vomiting: adequately controlled Pain: adequately controlled Airway Patency, RR, SpO2: see Notes below BP & HR: stable & adequate Hydration State: stable & adequate Anesthetic Complications: no major complications apparent Notes: Patient was returned to the ICU and attached to the mechanical ventilator via newly inserted trach tube.Pt. has covid 19 and has extensive lung involvement w/critical oxygen desaturation.
[2021-05-03] MEDS: NOVASOURCE RENAL 2.0 CAL 1000ML BAG OG SCH (17:52)
[2021-05-03] MEDS: PIPERACILLIN/TAZOBACTAM 4.5 GM in DEXTROSE 5% 100 ML IV SCH (17:53)
[2021-05-03 20:49] LABS: iSTAT Art Bld Gas pCO2 Correct 86 mmHg (35-46); iSTAT Art Bld Gas pH Corrected 7.311 (7.35-7.45); iSTAT Arterial Blood Gas HCO3 43 meg/L (19-24); iSTAT Arterial Blood Gas pCO2 81 mmHg (35-46); iSTAT Arterial Blood Gas pH 7.33 (7.35-7.45); iSTAT Arterial Blood Gas pO2 69 mmHg (80-95); iSTAT Arterial Blood Gas pO2 C 75; iSTAT Carbon Dioxide > 40 mmol/L (24-31); iSTAT FiO2 70 %; iSTAT Hematocrit 32 % (42-52); iSTAT Hemoglobin 10.9 g/dl (14.0-18.0); iSTAT Potassium 4.4 mmol/L (3.3-5.0); iSTAT Site Art Line; iSTAT Sodium 139 mmol/L (135-144)
[2021-05-03] MEDS ORDERED: OPTIRAY 320 125ml IV ONE (23:22)
[2021-05-04] MEDS: INSULIN ASPART PER UNIT SC SCH ×6 (00:02→20:09)
[2021-05-04] MEDS: PIPERACILLIN/TAZOBACTAM 4.5 GM in DEXTROSE 5% 100 ML IV SCH ×3 (01:15→16:23)
[2021-05-04] MEDS: oxyCODONE HCL IR 5 MG TAB (IMMEDIATE RELEASE) PO SCH ×6 (01:15→20:06)
[2021-05-04] MEDS: DEXTROSE 50% 50 ML SYRINGE IV PRN (01:29)
[2021-05-04] MEDS: TUBE FEEDING WATER FLUSH OG SCH ×5 (03:41→20:02)
[2021-05-04 05:19] LABS: Basophils # (auto) 0.01 K/uL (0-0.2); Basophils % (auto) 0.1 %; Hematocrit (blood only) 34.4 % (42-52); Hemoglobin 10.2 g/dL (14.0-18.0); Immature Granulocytes # (auto) 0.17 K/uL (0.00-0.02); Immature Granulocytes % (auto) 1.5 %; Lymphocytes # (auto) 1.25 K/uL (1.2-3.4); Lymphocytes % (auto) 11.4 %; Mean Corpuscular Hemoglobin 29.6 pg (25-34); Mean Corpuscular Hgb Conc 29.7 g/dL (32-36); Mean Corpuscular Volume 99.7 fL (80-100); Mean Platelet Volume 9.7 fL (7.4-10.4); Monocytes # (auto) 0.43 K/uL (0.11-0.59); Monocytes % (auto) 3.9 %; Neutrophils # (auto) 9.14 K/uL (1.4-6.5); Neutrophils % (auto) 83.1 %; Platelet Count 230 K/uL (130-400); RDW Coefficient of Variation 14.9 % (11.5-14.5); RDW Standard Deviation 53.9 fL (36.4-46.3); Red Blood Count 3.45 M/uL (4.7-6.1)
[2021-05-04 05:41] LABS: BUN Creatinine Ratio 45.7 (10-20); Creatinine Clr Calc Pharmacy 118.2 ml/min; Est GFR (African American) 106.9 ml/min; Est GFR (Non-African American) 92.2 ml/min; Magnesium 2.1 mg/dl (1.7-2.4); Potassium 4.1 mmol/L (3.5-5.1)
[2021-05-04 05:49] LABS: iSTAT Arterial Blood Gas HCO3 41 meg/L (19-24); iSTAT Arterial Blood Gas pCO2 84 mmHg (35-46); iSTAT Arterial Blood Gas pO2 75 mmHg (80-95); iSTAT Carbon Dioxide > 40 mmol/L (24-31); iSTAT FiO2 60 %; iSTAT Site Art Line
--- NOTE | 2021-05-04 06:59 | XRay Report ---
XR chest 1V portable CLINICAL HISTORY: Respiratory failure. COMPARISON STUDY: Chest radiograph and chest CT May 03, 2021. FINDINGS: Tracheostomy tube is in place. Right internal jugular central line is in place. Tip of feed ing tube is below the lower aspect of this image but at least within the stomach. Pneumomediastinum i s better depicted on chest CT of May 03, 2021. Extensive bilateral airspace opacities persist. Th ere is no pneumothorax. Cardiomegaly is unchanged. IMPRESSION: 1. Satisfactory positioning of lines and tubes. 2. Pneumomediastinum, better depicted on chest CT. No pneumothorax. 3. Persistent extensive bilateral airspace opacities. ACT 112: Negative or not required by law. Electronically signed by: Reynaldo Michel M.D. 05/04/2021 6:57 AM
--- NOTE | 2021-05-04 07:40 | CT Scan Report ---
CT head/brain wo con CLINICAL HISTORY: 51 years-old Male with enceph, central origin to fevers?. Acutely altered mental s tatus TECHNIQUE: Multiple axial CT images of the head were obtained without contrast. A dose lowering tech nique was utilized adhering to the principles of ALARA. COMPARISON: Head CT 05/11/2010 FINDINGS: No acute intracranial hemorrhage, midline shift, intracranial mass, hydrocephalus, territorial ischem ia or abnormal extra-axial collection. Possible chronic lacunar infarct in the inferior left lung fro m nucleus distribution image 12 series 2 which is unchanged. Mild white matter hypodensities have pro gressed from prior. 6 mm hypodense focus involving the anterior labrum of the left internal capsule i s new from prior. The calvarium is intact. Large bilateral mastoid effusions with fluid present within the middle ear cavities. Near complete opacification of the right maxillary sinus and sphenoid sinuses with moderate additional mucosal thickening of the paranasal sinuses. A partially imaged catheter is noted within the nasopharynx. Nasopharyngeal secretions. IMPRESSION: 1. No acute intracranial hemorrhage, midline shift or acute territorial infarct. 2. Mild white matter hypodensities have progressed from prior favoring chronic microvascular ischemic disease. 3. Subcentimeter hypodensity of the anterior limb left internal capsule also favors chronic microvasc ular ischemic disease. An age-indeterminate lacunar infarct could appear similarly. 4. Paranasal sinus disease with large mastoid effusions. ACT 112: Negative or not required by law. The above report was generated using voice recognition software. It may contain grammatical, syntax o r spelling errors. Electronically signed by: Genaro Pizarro M.D. 05/04/2021 7:38 AM
--- NOTE | 2021-05-04 07:44 | CT Scan Report ---
CT ANGIOGRAPHY OF THE CHEST, PULMONARY EMBOLUS PROTOCOL CLINICAL HISTORY: Evaluate infiltrates and for PE. COMPARISON STUDY: Chest CT May 11, 2010. Chest radiograph performed earlier today. TECHNIQUE: Following IV administration of 120 mL of Optiray, helical axial images of the chest were o btained utilizing the pulmonary embolus protocol. Maximal intensity projections and sagittal and cor onal reformats were viewed on an independent 3D workstation. IV contrast was administered without co mplication. Automated exposure control was utilized for the study. A dose lowering technique was ut ilized adhering to the principles of ALARA. CT DOSE: 1694.50 mGy.cm FINDINGS: No pulmonary emboli are identified although segmental and subsegmental pulmonary arteries are suboptimally assessed due to motion artifact. Tracheostomy tube is in place. Minimal adjacent str anding is noted. This is not unexpected. Tip of feeding tube is at least within the body of the stoma ch. Right internal jugular central line is in place. Moderate pneumomediastinum is present. There is no pneumothorax. Cardiomegaly is noted. No pericardial effusion. No thoracic aortic dissection is not ed. Extensive bilateral airspace opacities are noted, including bilateral lower lobe consolidation an d consolidation within the posterior segment of the right upper lobe and apicoposterior segment of th e left upper lobe. There are diffuse ground glass opacities throughout the remainder of the lungs. Th ere may be mild bronchiectasis. There is no pleural effusion. Visualized portions of the upper abdome n are unremarkable. IMPRESSION: 1. No pulmonary emboli identified although segmental and subsegmental pulmonary arteries suboptimally assessed due to respiratory motion. 2. Moderate pneumomediastinum. No pneumothorax. 3. Extensive bilateral airspace opacities within the lungs, as described above. 4. Cardiomegaly. ACT 112: Negative or not required by law. Electronically signed by: Reynaldo Michel M.D. 05/04/2021 7:43 AM
[2021-05-04] MEDS: DOCUSATE SODIUM/SENNA 50/8.6MG TAB PO SCH (09:04)
[2021-05-04] MEDS: acetaZOLAMIDE 250 MG in DEXTROSE 5% 100 ML IV SCH ×2 (09:04→20:06)
[2021-05-04] MEDS: clonazePAM 1 MG TAB PO SCH ×3 (09:05→20:06)
[2021-05-04] MEDS: POLYETHYLENE (MIRALAX) 17 GM PACK PO SCH (09:05)
[2021-05-04] MEDS: ENOXAPARIN INJ 120 MG/0.8 ML SYR SQ SCH ×2 (09:06→20:02)
[2021-05-04] MEDS: amLODIPine BESYLATE 5 MG TAB PO SCH (09:06)
[2021-05-04] MEDS: LACTULOSE SYRUP 20 GM/30 ML UDC PO SCH ×3 (09:06→20:03)
[2021-05-04] MEDS: fentaNYL citrate 2,500 MCG/250 ML BAG IV SCH (09:08)
--- NOTE | 2021-05-04 09:29 | XRay Report ---
KUB HISTORY: Follow up study in a patient with a feeding tube ileus COMPARISON: CT abdomen pelvis 04/30/2021 FINDINGS: Cardiac megaly with bibasilar opacities. Distal tip of a feeding tube is noted within the e xpected location of the distal stomach. Bowel gas pattern is nonobstructive. Surgical clips project o joann the pelvis. Montes and rectal catheters are present. No renal calculi. No ureteral calculi. No pn eumoperitoneum or pneumatosis. Lower lumbar spinal fusion hardware. Lumbar levoscoliosis with multile megan degenerative changes. No fracture. IMPRESSION: 1. Distal tip of feeding tube projects over the distal stomach. 2. Nonobstructive bowel gas pattern. ACT 112: Negative or not required by law. The above report was generated using voice recognition software. It may contain grammatical, syntax o r spelling errors. Electronically signed by: Genaro Pizarro M.D. 05/04/2021 9:27 AM
[2021-05-04] MEDS ORDERED: INSULIN GLARGINE SOLOSTAR 100 UNITS/ML 3 ML PEN SC ONE (10:15)
[2021-05-04] MEDS ORDERED: MINERAL OIL ENEMA 133 ML BTL PR STA (11:00)
[2021-05-04] MEDS: PANTOprazole 40 MG in SYRINGE 0 ML IV SCH (11:36)
--- NOTE | 2021-05-04 11:53 | Critical Care Progress Note ---
Date of Service May 04, 2021 Assessment & Plan (1) Acute respiratory failure with hypoxia: (2) Pneumonia due to 2019 novel coronavirus: (3) Obesity: (4) Anxiety: (5) DVT of axillary vein, acute bilateral: (6) Pneumomediastinum: (7) HTN (hypertension): (8) Constipation: Plan: Reason Critically Ill: Acute hypoxic respiratory failure secondary to COVID-19 pneumonia PLAN: Neuro: Patient with ongoing encephalopathy likely related to ICU delirium and sedation. CT head with chronic microvascular changes but no acute stroke. Sinusitis seen. Continue to aggressively wean sedation as able. Continue oxycodone 15 mg every 4 hours and Klonopin1 mg, 3 times daily to allow for weaning of continuous sedation. Resp: Ongoing severe ARDS. Patient status post percutaneous tracheostomy placement 05/02/21. Unfortunately he has a very large air leak. ENT performed a trach revision 05/03. CT chest with contrast performed 05/03. Pneumomediastinum seen. Severe bilateral groundglass opacities and bibasilar consolidations noted. Continues to require high vent settings. Will attempt to minimize PEEP given pneumomediastinum. CV: Continue to wean nicardipine. Continue 10 mg amlodipine daily Clonidine 0.1 mg daily initiated 05/04. Continue to use hydralazine as needed to maintain systolic blood pressures under 160. Lower extremity arterial ultrasound of the right leg 05/01 without arterial occlusion or hemodynamically significant stenosis. Fluids/Renal: Hyperkalemia resolved. Contraction alkalosis improving with acetazolamide. ID: Sputum cultures from 05/02 - thus far. Blood cultures from 04/25 with no growth. Fungal blood cultures from 04/25 with no growth as well. Pro-Tomás from 05/02 0.24. Urine culture from 05/03 with no growth. Sinusitis seen on CT head from 05/03. Fevers improved after the initiation of Zosyn 05/03. Pro-Tomás 0.14 ng/mL 05/04. GI/Nutrition: Continue aggressive bowel regimen including senna, MiraLAX, lactulose and senna. Received methylnaltrexone earlier in his hospital course. KUB 05/04 with a nonspecific gas pattern. Underwent a CT abdomen and pelvis on 04/30 due to concerns of a hematoma given the solid appearing mass within his abdomen. History of postsurgical changes and heterotrophic calcifications in the anterior abdominal wall noted on CT abdomen. CT also noted gas fluid level in the colon which may reflect an ileus. No obstruction was seen. No evidence of hematoma. Heme: Acute DVT s/p tpa earlier in hospital course DVT prophylaxis: Therapeutic Lovenox Endocrine: ICU hyperglycemia protocol Continue insulin gtt with elevated BSG Vascular access: Right subclavian central venous access, right radial art line Code Status: Full code Disposition: ICU updated over the phone today. Prognosis very guarded. CRITICAL CARE TIME - I have personally spent 39 minutes of critical care time in the direct management of this patient. This is a life/limb threatening event. This includes time spent evaluating patient, direct bedside care, chart review, placing orders, interpretation of diagnostic studies, discussion with consultants, patient, and family members, as well as other required patient management activities. This time is exclusive of all separately billable procedures, and teaching time and separate from and in addition to any other critical care service time. Admission and Anticipated Discharge Date Admission Date: April 16, 2021 Subjective Patient remains on Versed and fentanyl. Additionally on nicardipine infusions. Underwent CT chest with contrast and CT head yesterday. Continues with high mechanical ventilatory requirements. Review of Systems Review of Systems: Unobtainable due to reduced consciousness Physical Exam Physical Exam: Constitutional: Morbidly obese appearing male currently on the ventilator. Not following commands. Eyes: Pupils are equal round and reactive to light. Conjunctivae are normal. Anicteric sclera. Ears nose, mouth and throat: Tracheostomy in place. Neck: Midline. Trach in place as above. Respiratory: Coarse and diminished breath sounds. Tachypneic. Cardiovascular: Tachycardic. Mildly edematous in lower extremities. Regular rhythm. Gastrointestinal: Very firm appearing mass in the left mid quadrant. Otherwise soft. Bowel sounds minimal. Musculoskeletal: Extremities intact. Skin: No rashes, warm dry and intact. Neurologic: Nonresponsive to commands. No focal signs. Psychiatric: Unable to assess. Results & Data Results & Data ([facility]) Vital Signs (Past 12 Hours) Vital Signs Temp Pulse Resp BP Pulse Ox 05/04/21 10:30 74 28 H 117/62 92 05/04/21 10:00 84 28 H 126/63 94 05/04/21 09:31 85 27 H 154/75 H 84 L 05/04/21 09:30 83 28 H 92 05/04/21 09:00 70 28 H 109/60 92 05/04/21 08:30 67 18 106/57 L 92 05/04/21 08:27 77 29 H 93 05/04/21 08:00 75 24 103/58 L 91 05/04/21 07:30 71 19 107/61 93 05/04/21 07:00 75 40 H 110/59 L 94 05/04/21 05:46 36.8 C 05/04/21 05:30 78 26 H 118/61 85 L 05/04/21 05:15 91 H 28 H 94 05/04/21 05:00 80 25 H 119/66 94 05/04/21 04:30 85 22 119/64 95 05/04/21 04:00 83 25 H 118/64 94 05/04/21 03:30 80 25 H 118/64 95 05/04/21 03:00 81 25 H 115/63 95 05/04/21 02:30 37.1 C 82 25 H 114/66 98 05/04/21 02:00 82 23 114/66 98 05/04/21 01:30 86 23 121/67 98 05/04/21 01:00 83 23 118/69 97 05/04/21 00:30 84 25 H 120/65 95 05/04/21 00:00 34.4 C L 84 25 H 121/70 90 Coding Level of Care Code Critical Care 1st 30-74 mins Diagnoses Acute respiratory failure with hypoxia J96.01 Pneumonia due to 2019 novel coronavirus U07.1; J12.82 Obesity E66.9 Anxiety F41.9 DVT of axillary vein, acute bilateral I82.A13 Pneumomediastinum J98.2 HTN (hypertension) I10 Constipation K59.00 Time Spent (min) 39
[2021-05-04] MEDS: cloNIDine HCL 0.1 MG TAB PO SCH (12:01)
[2021-05-04] MEDS: MIDAZOLAM HCL 125 MG/250 ML BAG IV SCH (12:49)
--- NOTE | 2021-05-04 14:46 | Hospitalist Progress Note ---
Date of Service May 04, 2021 Assessment & Plan (1) Acute respiratory failure with hypoxia: (2) Pneumonia due to 2019 novel coronavirus: Plan: 51-year-old male with PMH of DM type II, HTN, obesity, GERD, HTN, anxiety and FARNAZ on CPAP presented 04/16 for evaluation of shortness of breath. Tested positive for COVID-19 on 04/06. Patient unvaccinated. At presentation to the ED, patient required 15 L oxygen to maintain saturation. Is being managed for the following: #. Acute respiratory failure with hypoxia #. Pneumonia due to 2019 novel coronavirus #. Moderate pneumomediastinum: 05/03 CTA chest Not vaccinated against Covid, tested positive on 04/06 [employer] via home test. Intubated on 04/24 for respiratory distress --> 05/01 percutaneous tracheostomy done --> 05/03 tracheostomy leak noted/failed tracheostomy exchange at bedside---> emergent reintubation 05/03---> 05/03 revision tracheostomy in OR Finished course of Rocephin --> continues to be febrile---> 05/03 Zosyn started per ICU team --> temperatures getting better Patient tracheostomy status/mechanically ventilated and sedated. Currently on fentanyl/Versed/insulin/nicardipine drips. Discussed with facilities operator, increasing ventilatory requirements, prognosis uncertain. Patient has developed pneumomediastinum and extensive bilateral airspace opacities. ICU team managing. Continue with GI prophylaxis. #. AKIresolved #. Acute DVT BLE Status post TPA earlier in hospital course On therapeutic Lovenox Disposition: ICU. Admission and Anticipated Discharge Date Admission Date: April 16, 2021 Subjective Patient being managed for acute respiratory failure secondary to pneumonia due to COVID-19 virus. Patient lying in bed, tracheostomy status, sedated, mechanically ventilated. ROS n/a d/t vent and sedation. Discussed with facilities operator, patient still requiring high ventilatory requirements and expresses concerns about prognosis. Patient on tube feed and is getting nicardipine/fentanyl/Versed/insulin drips. Also tube feed in situ, urinary catheter in situ. Patient has not moved bowels. Physical Exam Physical Exam: GENERAL: Sedated, intubated, mechanically ventilated. HEENT: No pallor, no icterus. Pupils equal, round and reactive to light. Oral mucosa dry. NECK: No JVD, no neck masses. Tracheostomy status HEART: S1 and S2 heard. Regular rate and rhythm. No murmur, no gallop. RESPIRATORY SYSTEM: Normal AP diameter. No accessory muscle use. No wheezing, decreased b/l breath sounds ABDOMEN: Soft, bowel sounds present, nontender, no distention. Some left-sided hardening of the subcutaneous tissue noted in the belly. Per RN -->Per his this is chronic. CENTRAL NERVOUS SYSTEM: No facial droop. Speech is clear. Obeys simple commands. Moves extremities. EXTREMITIES: No edema, no erythema seen. Urinary catheter in situ with yellow urine collection. Results & Data Results & Data ([facility]) Vital Signs (Past 12 Hours) Vital Signs Temp Pulse Resp BP Pulse Ox 05/04/21 11:40 73 28 H 91 05/04/21 11:30 75 28 H 111/57 L 91 05/04/21 11:00 78 28 H 108/60 91 05/04/21 10:30 74 28 H 117/62 92 05/04/21 10:00 84 28 H 126/63 94 05/04/21 09:31 85 27 H 154/75 H 84 L 05/04/21 09:30 83 28 H 92 05/04/21 09:00 70 28 H 109/60 92 05/04/21 08:30 67 18 106/57 L 92 05/04/21 08:27 77 29 H 93 05/04/21 08:00 75 24 103/58 L 91 05/04/21 07:30 71 19 107/61 93 05/04/21 07:00 75 40 H 110/59 L 94 05/04/21 05:46 36.8 C 05/04/21 05:30 78 26 H 118/61 85 L 05/04/21 05:15 91 H 28 H 94 05/04/21 05:00 80 25 H 119/66 94 05/04/21 04:30 85 22 119/64 95 05/04/21 04:00 83 25 H 118/64 94 05/04/21 03:30 80 25 H 118/64 95 05/04/21 03:00 81 25 H 115/63 95
--- NOTE | 2021-05-04 15:19 | Pharmacy Report ---
Pharmacy Glycemic Short Note 2 - Date of Service May 04, 2021 - Glycemic Short BSG Results (Last 24 hours): 05/03/21 05/03/21 05/03/21 17:13 18:45 20:05 Glucose POC Glucose 197 H 183 H 175 H 05/03/21 05/03/21 05/03/21 20:57 21:56 22:46 Glucose POC Glucose 144 H 129 H 111 H 05/03/21 05/04/21 05/04/21 23:56 01:12 01:37 Glucose POC Glucose 91 76 110 H 05/04/21 05/04/21 05/04/21 02:39 03:48 03:49 Glucose POC Glucose 118 H 165 H 172 H 05/04/21 05/04/21 05/04/21 05:10 05:40 06:27 Glucose 182 H POC Glucose 169 H 147 H 05/04/21 05/04/21 05/04/21 07:15 09:20 11:44 Glucose POC Glucose 145 H 166 H 172 H OUTPATIENT ANTIDIABETIC REGIMEN: * Metformin 1000 mg PO BID * Dulaglutide 3 mg SQ weekly on Thu * A1c: 9.2% (04/17/21) ASSESSMENT: 05/04: * Patient continues on insulin drip, rate now 2.9 units/hr - I anticipate insulin needs to decrease throughout today with steroids no longer on board * Will dose conservatively with Lantus 20 units x 1 now (0.2 unit/kg) with overlap of insulin drip * Will follow drip rates today to see if we can transition off 05/02: * S/p trach 05/01. Peptamen @ goal. Weaning sedation. Norepinephrine discontinued. Dex continues - will d/c 05/03. * Insulin infusion @ stable rate; 3-4units/hr. * Plan to give Lantus 30 units X 1 today to assist with coming off of the insulin drip. Continue insulin infusion today (OK if it weans itself off). Re- evaluate basal insulin in AM. * No change to Novolog 04/30 * Remains intubated. Steroids tapered today. Tubefeeds adjusted to Peptamen VHP yesterday. Possible trach upcoming. Norepi continues, albeit at a low dose * Insulin infusion running at a stable rate, ranging 3.4-4.3 units/hr for the last ~48 hours * Continue insulin drip with Novolog coverage for CHO due to multiple stressors 04/28: * Remains intubated, sedated, paralyzed and on pressors. * TFs changes to Peptamen today and patient remains on IV dex. * Insulin infusion still running at ~4 units/hr. Given numerous acute stressors, continue IV insulin infusion per protocol with Novolog (CR 3) to cover tube feeds. 04/26: * Remains intubated, sedated and paralyzed. Norepi @ 0.05mcg/kg/min. Renal function steady with SCr ~ 2.1. * Novasource @ trickle. Dexamethasone 10mg daily continues. Proning X 16hr today. * BSGs have trended down to goal with insulin drip. Infusion running @ ~ 6units/hr the majority of the evening into today. Given most recent BSGs this AM 118 and 111, discussed with RN to empirically reduce drip rate by about 20% to 4.5 unit/hr w/ repeat BSG @ 1300. * Given numerous acute stressors, continue IV insulin infusion per protocol with Novolog (CR 3) to cover tube feeds. 04/25: * Patient required intubation last evening. This AM patient is intubated, sedated, paralyzed, receiving pressors (norepi @0.07mcg/kg/min), new ZEN, IV steroid dose increased, Peptamen tube feeds initiated last night however being changed to Novasource renal at "trickle" rates. New dx of DVTs, possible PE. IV thrombolysis planned followed by IV heparin infusion. * BSGs did climb overnight to mid-200s this AM. This is prior to receiving today's dose of IV steroid and changing to a carb heavy feeding. IV insulin infusion will be initiated per protocol, may also have added benefit in hyperkalemia 04/24 * Worsening resp distress noted overnight. Patient decompensated despite proning. Hospitalist notified, IV dexamethasone admin early. * Pt noted to be hypoglycemic overnight. BSGs recovered following IV D50. Not tolerating PO with breakfast this AM. * Withheld AM NPH due to recent hypo as well as poor PO and anticipated poor PO today. Will give reduced NPH dose this afternoon as BSGs climbing again. Will reeval NPH needs tomorrow AM. * Continue "severe" stress Novolog doses however decrease correctional insulin doses given HS and overnight 04/21: * Blood sugars continue to trend up with steroid throughout the day and then drop overnight * Tighten CF/CR AC and increase NPH to cover steroid effects * Loosen HS, and DC Lantus to prevent AM hypoglycemia 04/19: * Fasting improved with addition of 10 units of lantus, will continue scale for PM tonight * Continued same NPH dose (0.4 unit/kg adjbw) with dexamethasone and tightedn carb ratio, lunch BSG improved continue to monitor for additional changes PLAN FOR INPATIENT GLYCEMIC CONTROL: * Hold outpatient diabetes medications (metformin, Trulicity) * Continue IV insulin per protocol, goal range 110-180mg/dL * Lantus 20 units x 1 * Bolus insulin * NovoLog Q 4 hrs to cover carbs in tube feeds. * Nutritional / Prandial insulin per carb ratio of 1 unit per 3 grams CHO delivered in continuous tube feeds PLAN FOR DISCHARGE: * HbA1c: 9.2% suggests poor outpatient glycemic control * Reasonable to continue metformin and Trulicity at discharge if no contraindications * Consider addition of second oral agent that would minimize weight gain/promote weight loss, such as SGLT2 inhibitor * Initial dosing of empagliflozin would be 10 mg PO daily * Alternatively, if patient agreeable to insulin, could consider once daily basal insulin (although, concern for insulin-induced weight gain)
[2021-05-04] MEDS: INSULIN REGULAR 250 UNITS in SODIUM CHLORIDE 0.9% 247.5 ML IV SCH (17:27)
[2021-05-05] MEDS: TUBE FEEDING WATER FLUSH OG SCH ×7 (00:22→22:58)
[2021-05-05] MEDS: INSULIN ASPART PER UNIT SC SCH ×6 (00:32→20:10)
[2021-05-05] MEDS: oxyCODONE HCL IR 5 MG TAB (IMMEDIATE RELEASE) PO SCH ×6 (00:34→19:55)
[2021-05-05] MEDS: PIPERACILLIN/TAZOBACTAM 4.5 GM in DEXTROSE 5% 100 ML IV SCH ×3 (02:18→16:58)
[2021-05-05] MEDS: NOVASOURCE RENAL 2.0 CAL 1000ML BAG OG SCH (02:18)
[2021-05-05] MEDS: hydrALAZINE HCL 20 MG/ML VIAL IV PRN ×4 (02:31→19:56)
[2021-05-05 05:31] LABS: iSTAT Arterial Blood Gas HCO3 39 meg/L (19-24); iSTAT Arterial Blood Gas pCO2 76 mmHg (35-46); iSTAT Arterial Blood Gas pH 7.31 (7.35-7.45); iSTAT Arterial Blood Gas pO2 67 mmHg (80-95); iSTAT Carbon Dioxide > 40 mmol/L (24-31); iSTAT FiO2 50 %; iSTAT Site Art Line
[2021-05-05] MEDS: MIDAZOLAM HCL 125 MG/250 ML BAG IV SCH ×2 (05:38→06:48)
[2021-05-05] MEDS: fentaNYL citrate 2,500 MCG/250 ML BAG IV SCH ×2 (05:41→06:47)
[2021-05-05 06:38] LABS: Basophils # (auto) 0.01 K/uL (0-0.2); Basophils % (auto) 0.1 %; Eosinophils # (auto) 0.06 K/uL (0-0.5); Eosinophils % (auto) 0.6 %; Hematocrit (blood only) 35.5 % (42-52); Hemoglobin 10.9 g/dL (14.0-18.0); Immature Granulocytes % (auto) 0.9 %; Lymphocytes # (auto) 1.09 K/uL (1.2-3.4); Lymphocytes % (auto) 10.2 %; Mean Corpuscular Hemoglobin 30.4 pg (25-34); Mean Corpuscular Hgb Conc 30.7 g/dL (32-36); Mean Corpuscular Volume 98.9 fL (80-100); Mean Platelet Volume 9.6 fL (7.4-10.4); Monocytes # (auto) 0.47 K/uL (0.11-0.59); Monocytes % (auto) 4.4 %; Neutrophils # (auto) 8.94 K/uL (1.4-6.5); Neutrophils % (auto) 83.8 %; Platelet Count 236 K/uL (130-400); RDW Coefficient of Variation 15.2 % (11.5-14.5); RDW Standard Deviation 55.5 fL (36.4-46.3); Red Blood Count 3.59 M/uL (4.7-6.1); White Blood Count 10.67 K/uL (4.8-10.8)
[2021-05-05 07:08] LABS: BUN Creatinine Ratio 45.3 (10-20); Calcium 8.3 mg/dl (8.5-10.1); Creatinine Clr Calc Pharmacy 129.2 ml/min; Est GFR (African American) 114.7 ml/min; Phosphorus 2.4 mg/dl (2.5-4.9); Potassium 3.7 mmol/L (3.5-5.1)
--- NOTE | 2021-05-05 07:14 | XRay Report ---
XR chest 1V portable CLINICAL HISTORY: Respiratory failure. COMPARISON STUDY: Chest CT May 03, 2021. Chest radiograph May 04, 2021. FINDINGS: Tracheostomy tube is in place. Right subclavian central line is in place. Tip of feeding tu be is at least within the body of the stomach. Suspected pneumomediastinum is better depicted on prio r chest CT. There is no pneumothorax. Cardiomediastinal silhouette is stable. Extensive bilateral air space opacities persist. IMPRESSION: 1. Satisfactory positioning of lines and tubes. 2. No significant change in extensive bilateral airspace opacities. 3. Suspected pneumomediastinum, better depicted on prior chest CT. No pneumothorax. ACT 112: Negative or not required by law. Electronically signed by: Reynaldo Michel M.D. 05/05/2021 7:12 AM
[2021-05-05] MEDS ORDERED: INSULIN GLARGINE SOLOSTAR 100 UNITS/ML 3 ML PEN SC ONE ×2 (07:45→16:00)
[2021-05-05] MEDS: ENOXAPARIN INJ 120 MG/0.8 ML SYR SQ SCH ×2 (09:38→19:56)
[2021-05-05] MEDS: amLODIPine BESYLATE 5 MG TAB PO SCH (09:39)
[2021-05-05] MEDS: clonazePAM 1 MG TAB PO SCH ×3 (09:39→19:56)
[2021-05-05] MEDS: cloNIDine HCL 0.1 MG TAB PO SCH (09:39)
[2021-05-05] MEDS: DOCUSATE SODIUM/SENNA 50/8.6MG TAB PO SCH (09:40)
[2021-05-05] MEDS: POLYETHYLENE (MIRALAX) 17 GM PACK PO SCH (09:40)
[2021-05-05] MEDS: LACTULOSE SYRUP 20 GM/30 ML UDC PO SCH ×3 (09:40→19:57)
[2021-05-05] MEDS: PANTOprazole 40 MG in SYRINGE 0 ML IV SCH (10:45)
--- NOTE | 2021-05-05 11:17 | Critical Care Progress Note ---
Date of Service May 05, 2021 Assessment & Plan (1) Acute respiratory failure with hypoxia: (2) Pneumonia due to 2019 novel coronavirus: (3) Obesity: (4) Anxiety: (5) DVT of axillary vein, acute bilateral: (6) Pneumomediastinum: (7) HTN (hypertension): (8) Constipation: Plan: Reason Critically Ill: Acute hypoxic respiratory failure secondary to COVID-19 pneumonia PLAN: Neuro: Patient with ongoing encephalopathy likely related to ICU delirium and sedation. CT head with chronic microvascular changes but no acute stroke. Sinusitis seen. Have asked the nurse to attempt to wean continuous drips off. Continue oxycodone 15 mg every 4 hours and Klonopin1 mg, 3 times daily to allow for weaning of continuous sedation. Resp: Ongoing severe ARDS. Patient status post percutaneous tracheostomy placement 05/02/21. ENT performed a trach revision 05/03. Continues to have a large air leak despite tracheostomy revision. CT chest with contrast performed 05/03. Pneumomediastinum seen. Severe bilateral groundglass opacities and bibasilar consolidations noted. Continues to require high vent settings. Will attempt to minimize PEEP given pneumomediastinum. CV: Continue to wean nicardipine. Continue 10 mg amlodipine daily Clonidine 0.1 mg daily initiated 05/04. Continue to use hydralazine as needed to maintain systolic blood pressures under 160. Lower extremity arterial ultrasound of the right leg 05/01 without arterial occlusion or hemodynamically significant stenosis. Fluids/Renal: Hyperkalemia resolved. Contraction alkalosis improving with acetazolamide. Replace electrolytes per protocol. ID: Sputum cultures from 05/02 - thus far. Blood cultures from 04/25 with no growth. Fungal blood cultures from 04/25 with no growth as well. Pro-Tomás from 05/02 0.24. Urine culture from 05/03 with no growth. Sinusitis seen on CT head from 05/03. Fevers improved after the initiation of Zosyn 05/03. Pro-Tomás 0.14 ng/mL 05/04. GI/Nutrition: Continue aggressive bowel regimen including senna, MiraLAX, lactulose and senna. Received mineral oil enema 05/04. Continues without bowel movement. Received methylnaltrexone earlier in his hospital course. KUB 05/04 with a nonspecific gas pattern. Underwent a CT abdomen and pelvis on 04/30 due to concerns of a hematoma given the solid appearing mass within his abdomen. History of postsurgical changes and heterotrophic calcifications in the anterior abdominal wall noted on CT abdomen. CT also noted gas fluid level in the colon which may reflect an ileus. No obstruction was seen. No evidence of hematoma. Heme: Acute DVT s/p tpa earlier in hospital course DVT prophylaxis: Therapeutic Lovenox Endocrine: ICU hyperglycemia protocol Continue insulin gtt with elevated BSG Vascular access: Right subclavian central venous access, right radial art line Code Status: Full code Disposition: ICU CRITICAL CARE TIME - I have personally spent 34 minutes of critical care time in the direct management of this patient. This is a life/limb threatening event. This includes time spent evaluating patient, direct bedside care, chart review, placing orders, interpretation of diagnostic studies, discussion with consultants, patient, and family members, as well as other required patient management activities. This time is exclusive of all separately billable procedures, and teaching time and separate from and in addition to any other critical care service time. Admission and Anticipated Discharge Date Admission Date: April 16, 2021 Subjective Remains unresponsive to commands. Currently on low doses of Versed and fentanyl. Continues to have an air leak around the tracheostomy. No fever in the last 24 hours. Review of Systems Review of Systems: Unobtainable due to endotracheal tube and Unobtainable due to reduced consciousness Physical Exam Physical Exam: Constitutional: Morbidly obese appearing male currently on the ventilator. Not following commands. Eyes: Pupils are equal round and reactive to light. Conjunctivae are normal. Anicteric sclera. Ears nose, mouth and throat: Tracheostomy in place. Neck: Midline. Trach in place as above. Respiratory: Coarse and diminished breath sounds. Tachypneic. Cardiovascular: Tachycardic. Mildly edematous in lower extremities. Regular rhythm. Gastrointestinal: Very firm appearing mass in the left mid quadrant. Otherwise soft. Bowel sounds minimal. Musculoskeletal: Extremities intact. Skin: No rashes, warm dry and intact. Neurologic: Nonresponsive to commands. No focal signs. Psychiatric: Unable to assess. Results & Data Results & Data ([facility]) Vital Signs (Past 12 Hours) Vital Signs Temp Pulse Resp BP Pulse Ox 05/05/21 10:45 103 H 34 H 165/78 H 92 05/05/21 10:30 101 H 35 H 166/79 H 87 L 05/05/21 10:15 106 H 31 H 177/86 H 86 L 05/05/21 10:00 108 H 29 H 150/82 H 87 L 05/05/21 09:45 105 H 25 H 149/78 H 88 L 05/05/21 09:30 99 H 26 H 153/87 H 89 L 05/05/21 09:15 98 H 27 H 162/84 H 89 L 05/05/21 09:00 94 H 26 H 168/92 H 89 L 05/05/21 08:46 96 H 25 H 158/86 H 89 L 05/05/21 08:30 71 26 H 115/66 94 05/05/21 08:15 76 28 H 117/67 95 05/05/21 08:00 37.1 C 81 26 H 117/67 94 05/05/21 07:45 84 28 H 116/69 95 05/05/21 07:30 85 28 H 130/74 94 05/05/21 07:15 87 28 H 142/73 H 94 05/05/21 07:00 79 28 H 167/80 H 93 05/05/21 06:45 83 28 H 150/83 H 95 05/05/21 06:00 37.1 C 90 28 H 156/77 H 91 05/05/21 05:00 95 H 29 H 140/72 92 05/05/21 04:11 86 32 H 92 05/05/21 04:00 91 H 28 H 169/98 H 92 05/05/21 03:00 86 36 H 180/87 H 91 05/05/21 02:01 37.1 C 90 29 H 174/81 H 98 05/05/21 01:00 67 28 H 119/67 95 05/05/21 00:00 67 31 H 119/67 93 05/04/21 23:17 75 29 H 91 Coding Level of Care Code Critical Care 1st 30-74 mins Diagnoses Acute respiratory failure with hypoxia J96.01 Pneumonia due to 2019 novel coronavirus U07.1; J12.82 Obesity E66.9 Anxiety F41.9 DVT of axillary vein, acute bilateral I82.A13 Pneumomediastinum J98.2 HTN (hypertension) I10 Constipation K59.00 Time Spent (min) 34
--- NOTE | 2021-05-05 14:35 | Hospitalist Progress Note ---
Date of Service May 05, 2021 Assessment & Plan (1) Acute respiratory failure with hypoxia: (2) Pneumonia due to 2019 novel coronavirus: Plan: 51-year-old male with PMH of DM type II, HTN, obesity, GERD, HTN, anxiety and FARNAZ on CPAP presented 04/16 for evaluation of shortness of breath. Tested positive for COVID-19 on 04/06. Patient unvaccinated. At presentation to the ED, patient required 15 L oxygen to maintain saturation. Is being managed for the following: #. Acute respiratory failure with hypoxia #. Pneumonia due to 2019 novel coronavirus #. Moderate pneumomediastinum: 05/03 CTA chest Not vaccinated against Covid, tested positive on 04/06 RN [facility] via home test. Intubated on 04/24 for respiratory distress --> 05/01 percutaneous tracheostomy done --> 05/03 tracheostomy leak noted/failed tracheostomy exchange at bedside---> emergent reintubation 05/03---> 05/03 revision tracheostomy in OR Finished course of Rocephin --> continued to be febrile---> 05/03 Zosyn started per ICU team --> temperatures getting better. Follow-up with cultures. Patient tracheostomy status/mechanically ventilated and sedated. Currently on fentanyl/Versed drips. Patient has developed pneumomediastinum and extensive bilateral airspace opacities. ICU team managing. Continue with GI prophylaxis. #. AKIresolved #. Acute DVT BLE Status post TPA earlier in hospital course On therapeutic Lovenox Disposition: ICU. Admission and Anticipated Discharge Date Admission Date: April 16, 2021 Subjective Patient lying in bed, tracheostomy status and ventilated for acute respiratory failure secondary to pneumonia secondary to COVID-19 virus infection. Per RN no new acute events overnight, patient had not moved bowel since last 13 to 14 days, and plan is to decrease his fentanyl and Versed today. ROS n/a Physical Exam Physical Exam: GENERAL: Sedated, trachesotomy status, mechanically ventilated. HEENT: No pallor, no icterus. Pupils equal, round and reactive to light. Oral mucosa dry. NECK: No JVD, no neck masses. Tracheostomy status HEART: S1 and S2 heard. Regular rate and rhythm. No murmur, no gallop. RESPIRATORY SYSTEM: Normal AP diameter. No accessory muscle use. No wheezing, decreased b/l breath sounds ABDOMEN: Soft, bowel sounds present, nontender, no distention. Some left-sided hardening of the subcutaneous tissue noted in the belly. Per RN -->Per his this is chronic. CENTRAL NERVOUS SYSTEM:n/a. EXTREMITIES: No edema, no erythema seen. Urinary catheter in situ with yellow urine collection. Results & Data Results & Data ([facility]) Vital Signs (Past 12 Hours) Vital Signs Temp Pulse Resp BP Pulse Ox 05/05/21 11:10 85 31 H 93 05/05/21 10:45 103 H 34 H 165/78 H 92 05/05/21 10:30 101 H 35 H 166/79 H 87 L 05/05/21 10:15 106 H 31 H 177/86 H 86 L 05/05/21 10:00 108 H 29 H 150/82 H 87 L 05/05/21 09:45 105 H 25 H 149/78 H 88 L 05/05/21 09:30 99 H 26 H 153/87 H 89 L 05/05/21 09:15 98 H 27 H 162/84 H 89 L 05/05/21 09:00 94 H 26 H 168/92 H 89 L 05/05/21 08:46 96 H 25 H 158/86 H 89 L 05/05/21 08:30 71 26 H 115/66 94 05/05/21 08:25 78 29 H 95 05/05/21 08:15 76 28 H 117/67 95 05/05/21 08:00 37.1 C 81 26 H 117/67 94 05/05/21 07:45 84 28 H 116/69 95 05/05/21 07:30 85 28 H 130/74 94 05/05/21 07:15 87 28 H 142/73 H 94 05/05/21 07:00 79 28 H 167/80 H 93 05/05/21 06:45 83 28 H 150/83 H 95 05/05/21 06:00 37.1 C 90 28 H 156/77 H 91 05/05/21 05:00 95 H 29 H 140/72 92 05/05/21 04:11 86 32 H 92 05/05/21 04:00 91 H 28 H 169/98 H 92 05/05/21 03:00 86 36 H 180/87 H 91
[2021-05-06] MEDS: INSULIN ASPART PER UNIT SC SCH ×6 (00:29→21:47)
[2021-05-06] MEDS: oxyCODONE HCL IR 5 MG TAB (IMMEDIATE RELEASE) PO SCH ×5 (00:29→21:49)
[2021-05-06] MEDS: PIPERACILLIN/TAZOBACTAM 4.5 GM in DEXTROSE 5% 100 ML IV SCH ×2 (02:11→09:16)
[2021-05-06] MEDS: NOVASOURCE RENAL 2.0 CAL 1000ML BAG OG SCH (02:12)
[2021-05-06] MEDS: hydrALAZINE HCL 20 MG/ML VIAL IV PRN ×2 (02:40→09:16)
[2021-05-06] MEDS: TUBE FEEDING WATER FLUSH OG SCH ×6 (03:08→23:35)
[2021-05-06 04:47] LABS: iSTAT Arterial Blood Gas HCO3 39 meg/L (19-24); iSTAT Arterial Blood Gas pCO2 76 mmHg (35-46); iSTAT Arterial Blood Gas pH 7.32 (7.35-7.45); iSTAT Arterial Blood Gas pO2 69 mmHg (80-95); iSTAT Carbon Dioxide > 40 mmol/L (24-31); iSTAT FiO2 40 %; iSTAT Site Art Line
[2021-05-06 05:16] LABS: Basophils # (auto) 0.01 K/uL (0-0.2); Basophils % (auto) 0.1 %; Hematocrit (blood only) 37.8 % (42-52); Hemoglobin 11.3 g/dL (14.0-18.0); Immature Granulocytes # (auto) 0.16 K/uL (0.00-0.02); Immature Granulocytes % (auto) 1.2 %; Lymphocytes # (auto) 0.98 K/uL (1.2-3.4); Lymphocytes % (auto) 7.3 %; Mean Corpuscular Hemoglobin 29.4 pg (25-34); Mean Corpuscular Hgb Conc 29.9 g/dL (32-36); Mean Corpuscular Volume 98.4 fL (80-100); Mean Platelet Volume 10.3 fL (7.4-10.4); Monocytes # (auto) 0.31 K/uL (0.11-0.59); Monocytes % (auto) 2.3 %; Neutrophils # (auto) 11.91 K/uL (1.4-6.5); Neutrophils % (auto) 89.1 %; Nucleated RBC # (auto) 0.05 K/uL (0-0); Nucleated RBC % (auto) 0.3 %; Platelet Count 262 K/uL (130-400); RDW Coefficient of Variation 15.3 % (11.5-14.5); RDW Standard Deviation 54.6 fL (36.4-46.3); Red Blood Count 3.84 M/uL (4.7-6.1); White Blood Count 13.37 K/uL (4.8-10.8)
[2021-05-06 05:35] LABS: BUN Creatinine Ratio 47.5 (10-20); Calcium 9.1 mg/dl (8.5-10.1); Creatinine Clr Calc Pharmacy 138.8 ml/min; Est GFR (African American) 118.2 ml/min; Magnesium 2.2 mg/dl (1.7-2.4); Potassium 3.3 mmol/L (3.5-5.1)
[2021-05-06] MEDS ORDERED: POTASSIUM CHLORIDE 20 MEQ/15 ML UDC PO STA (06:05)
[2021-05-06] MEDS ORDERED: POTASSIUM CHLORIDE / WTR 20 MEQ/100 ML PLCT IV ONE (06:05)
--- NOTE | 2021-05-06 08:13 | XRay Report ---
SINGLE VIEW CHEST CLINICAL HISTORY: Respiratory failure. FINDINGS: An AP, portable, semierect chest radiograph is compared to study dated 05/05/2021. Correlati on is made with chest CT dated 05/03/2021. The examination is degraded by portable technique and patie nt rotation. A tracheostomy, an enteric tube, and the right subclavian central venous catheter are un changed in position. The cardiomediastinal silhouette is unremarkable. Extensive/multifocal airspace consolidation is again noted. No large pleural effusion or pneumothorax is seen. The bony thorax is g rossly intact. IMPRESSION: 1. Stable lines and tubes. 2. Multifocal airspace consolidation is unchanged from yesterday. ACT 112: Negative or not required by law. Electronically signed by: Brady Cam M.D. 05/06/2021 8:12 AM
--- NOTE | 2021-05-06 08:45 | Critical Care Progress Note ---
Date of Service May 06, 2021 Assessment & Plan (1) Acute respiratory failure with hypoxia: (2) Pneumonia due to 2019 novel coronavirus: (3) Obesity: (4) Anxiety: (5) DVT of axillary vein, acute bilateral: (6) Pneumomediastinum: (7) HTN (hypertension): (8) Constipation: Plan: Reason Critically Ill: Acute hypoxic respiratory failure secondary to COVID-19 pneumonia PLAN: Neuro: Anesthesia: Oxycodone Sedation: Clonazepam CT head with chronic microvascular changes but no acute stroke. Sinusitis seen. Resp: --Hypoxic respiratory failure secondary to multilobar COVID-19 pneumonia Patient status post percutaneous tracheostomy placement 05/02/21. ENT performed a trach revision 05/03. Continues to have a large air leak despite tracheostomy revision. CT chest 05/03 shows diffuse pulmonary infiltrates with pneumomediastinum --Pneumomediastinum seen. No subcu emphysema Try to keep low PEEP CV: --Hypertension Off nicardipine drip On amlodipine 10 mg Metoprolol 25 mg every 12 Hydralazine as needed Lower extremity arterial ultrasound of the right leg 05/01 without arterial occlusion or hemodynamically significant stenosis. Fluids/Renal: Monitor BUNs/creatinine Replace electrolytes per protocol. ID: Sputum cultures from 05/02 - thus far. Blood cultures from 04/25 with no growth. Fungal blood cultures from 04/25 with no growth as well. Pro-Tomás from 05/02 0.24 --> 0.14 on 05/04 Urine culture from 05/03 with no growth. Sinusitis seen on CT head from 05/03. Fevers improved after the initiation of Zosyn 05/03 --> complete for total of 7 days GI/Nutrition: Continue aggressive bowel regimen including senna, MiraLAX, lactulose and senna. Received mineral oil enema 05/04. CT abdomen and pelvis on 05/03: History of postsurgical changes and heterotrophic calcifications in the anterior abdominal wall noted on CT abdomen. CT also noted gas fluid level in the colon which may reflect an ileus. No obstruction was seen. No evidence of hematoma. Heme: Acute DVT s/p tpa earlier in hospital course Endocrine: ICU hyperglycemia protocol Continue insulin gtt with elevated BSG --Prophylaxis VTE: Therapeutic Lovenox GI: Pantoprazole Lines:Right subclavian central venous access, right radial art line, Trach revision 05/03 Diet: Tube feeds Plan: In/out: -981, urine output 2024 AB.32/76/69 on 40% PEEP of 8 T-max 38.2 Chest x-ray does not show any significant change compared to yesterday. Decrease clonazepam to 1 mg twice daily, decrease oxycodone to 15 mg every 8 hours Give another dose of methylnaltrexone Start the patient on metoprolol 25 mg every 12 Increase the dose of Colace and senna Hypokalemia being replaced Discontinue arterial line I have personally spent 42 minutes of critical care time in the direct management of this patient. This is a life/limb threatening event. This includes time spent evaluating patient, direct bedside care, chart review, placing orders, interpretation of diagnostic studies, discussion with consultants, latisha heck, and family members, as well as other required patient management activities. This time is exclusive of all separately billable procedures, and teaching time and separate from and in addition to any other critical care service time. Admission and Anticipated Discharge Date Admission Date: April 16, 2021 Subjective Patient seen and examined at bedside. No acute distress, no adverse events overnight Patient was breathing over the vent. He was in the low 30s respiratory rate. I did put him on pressure support his respiratory went up to mid 30s and he started to desaturate. Fortunately patient is not following any commands. T-max 38.2 Review of Systems Review of Systems: Unobtainable due to cognitive status and Unobtainable due to reduced consciousness Physical Exam Physical Exam: Constitutional: No acute distress HEENT: PERRLA, positive trach Respiratory system: Decreased antibiotic, no wheeze, rhonchi, positive crackles bilaterally CVS: S1-S2 positive, no murmurs or gallops Abdomen: Soft, nontender, nondistended, positive bowel sounds x4 Extremities: +2 pulses bilaterally radialis/ dorsalis pedis, no cyanosis, no edema Neuro: Breathing over the vent, positive pupillary, positive corneal Psych: Unable to assess G/U: Positive Montes Results & Data Results & Data ([facility]) Vital Signs (Past 12 Hours) Vital Signs Temp Pulse Resp BP Pulse Ox 05/06/21 08:12 106 H 32 H 91 05/06/21 06:36 37.7 C H 107 H 25 H 93 05/06/21 06:35 37.7 C H 106 H 29 H 93 05/06/21 06:34 91 H 25 H 93 05/06/21 06:30 37.8 C H 108 H 29 H 137/79 93 05/06/21 06:00 101 H 31 H 146/70 H 92 05/06/21 05:30 109 H 29 H 112/74 92 05/06/21 05:00 99 H 27 H 138/75 92 05/06/21 04:30 102 H 31 H 147/76 H 91 05/06/21 04:00 38.2 C H 104 H 29 H 142/73 H 91 05/06/21 03:31 103 H 31 H 91 05/06/21 03:30 103 H 31 H 146/75 H 91 05/06/21 03:00 104 H 27 H 150/77 H 92 05/06/21 02:30 103 H 29 H 139/83 92 05/06/21 02:00 104 H 28 H 145/72 H 91 05/06/21 01:30 108 H 30 H 150/84 H 93 05/06/21 01:00 93 H 29 H 128/74 92 05/06/21 00:30 107 H 29 H 152/74 H 91 05/06/21 00:00 102 H 31 H 139/71 91 05/05/21 23:42 102 H 30 H 92 05/05/21 23:30 98 H 24 148/83 H 92 05/05/21 23:00 99 H 30 H 152/71 H 91 05/05/21 22:30 100 H 27 H 149/74 H 91 05/05/21 22:00 98 H 30 H 161/76 H 91 05/05/21 21:30 100 H 30 H 134/74 91 05/05/21 21:00 95 H 27 H 153/74 H 91 Laboratory Results 05/06/21 05:02 05/06/21 05:02 Coding Level of Care Code Critical Care 1st 30-74 mins Diagnoses Acute respiratory failure with hypoxia J96.01 Pneumonia due to 2019 novel coronavirus U07.1; J12.82 Obesity E66.9 Anxiety F41.9 DVT of axillary vein, acute bilateral I82.A13 Pneumomediastinum J98.2 HTN (hypertension) I10 Constipation K59.00 Time Spent (min) 42
[2021-05-06] MEDS: ENOXAPARIN INJ 120 MG/0.8 ML SYR SQ SCH ×2 (09:14→21:47)
[2021-05-06] MEDS: clonazePAM 1 MG TAB PO SCH ×2 (09:15→21:48)
[2021-05-06] MEDS: cloNIDine HCL 0.1 MG TAB PO SCH (09:15)
[2021-05-06] MEDS: amLODIPine BESYLATE 5 MG TAB PO SCH (09:15)
[2021-05-06] MEDS: DOCUSATE SODIUM/SENNA 50/8.6MG TAB PO SCH ×2 (09:15→21:48)
[2021-05-06] MEDS: LACTULOSE SYRUP 20 GM/30 ML UDC PO SCH ×3 (09:16→21:48)
[2021-05-06] MEDS: POLYETHYLENE (MIRALAX) 17 GM PACK PO SCH ×2 (09:16→21:49)
[2021-05-06] MEDS ORDERED: METHYLNALTREXONE BROMIDE 12 MG/0.6 ML VIAL SQ ONE (10:30)
[2021-05-06] MEDS ORDERED: INSULIN GLARGINE SOLOSTAR 100 UNITS/ML 3 ML PEN SC ONE (11:00)
--- NOTE | 2021-05-06 11:03 | Pharmacy Report ---
Pharmacy Glycemic Short Note 2 - Date of Service May 06, 2021 - Glycemic Short BSG Results (Last 24 hours): 05/05/21 05/05/21 05/05/21 13:35 17:02 20:07 Glucose POC Glucose 274 H 161 H 177 H 05/06/21 05/06/21 05/06/21 00:04 04:25 05:02 Glucose 127 H POC Glucose 179 H 124 H 05/06/21 09:26 Glucose POC Glucose 145 H OUTPATIENT ANTIDIABETIC REGIMEN: * Metformin 1000 mg PO BID * Dulaglutide 3 mg SQ weekly on Thu * A1c: 9.2% (04/17/21) ASSESSMENT: 05/06 * Stressors stable - day 3 off of steroids. Novasource renal continues. Insulin drip transitioned off 05/04. * Increase in basal insulin required yesterday, total of 50 units administered. Will continue similar, but possibly decreased slightly based on BSG tonight as some BSG's below goal for ICU status patient * Tightening of correction factor and CHO ratio yesterday PM with good BSG's since that time. Will continue 05/04: * Patient continues on insulin drip, rate now 2.9 units/hr - I anticipate insulin needs to decrease throughout today with steroids no longer on board * Will dose conservatively with Lantus 20 units x 1 now (0.2 unit/kg) with overlap of insulin drip * Will follow drip rates today to see if we can transition off 05/02: * S/p trach 05/01. Peptamen @ goal. Weaning sedation. Norepinephrine discontinued. Dex continues - will d/c 05/03. * Insulin infusion @ stable rate; 3-4units/hr. * Plan to give Lantus 30 units X 1 today to assist with coming off of the insulin drip. Continue insulin infusion today (OK if it weans itself off). Re- evaluate basal insulin in AM. * No change to Novolog PLAN FOR INPATIENT GLYCEMIC CONTROL: * Hold outpatient diabetes medications (metformin, Trulicity) * Lantus 25 units x 1 then ongoing BID depending on BSG (0-25 units) * Bolus insulin * NovoLog Q 4 hrs to cover carbs in tube feeds * Goal range: 110-140 mg/dL * Correction factor: 12 mg/dL/unit * CHO ratio: 3 grams CHO/unit delivered in continuous tube feeds PLAN FOR DISCHARGE: * see 1/29 note
--- NOTE | 2021-05-06 11:45 | Hospitalist Progress Note ---
Date of Service May 06, 2021 Assessment & Plan (1) Acute respiratory failure with hypoxia: (2) Pneumonia due to 2019 novel coronavirus: Plan: 51-year-old male with PMH of DM type II, HTN, obesity, GERD, HTN, anxiety and FARNAZ on CPAP presented 04/16 for evaluation of shortness of breath. Tested positive for COVID-19 on 04/06. Patient unvaccinated. At presentation to the ED, patient required 15 L oxygen to maintain saturation. Is being managed for the following: #. Acute respiratory failure with hypoxia #. Pneumonia due to 2019 novel coronavirus #. Moderate pneumomediastinum: 05/03 CTA chest Not vaccinated against Covid, tested positive on 04/06 [employer] via home test. Intubated on 04/24 for respiratory distress --> 05/01 percutaneous tracheostomy done --> 05/03 tracheostomy leak noted/failed tracheostomy exchange at bedside---> emergent reintubation 05/03---> 05/03 revision tracheostomy in OR Finished course of Rocephin --> continued to be febrile---> 05/03 Zosyn started per ICU team --> 05/06 Unasyn. WBC and temp stayed WNL for 1-2 days, both increasing again today. Follow-up with cultures. Patient tracheostomy status/mechanically ventilated and sedated. Currently on fentanyl drips, MV of 450/28/8.0 cm/50% Patient has developed pneumomediastinum and extensive bilateral airspace opacities. PEEP on the lower side. ICU team managing. Continue with GI prophylaxis. #. HTN Blood pressure of remain elevated fairly earlier requiring nicardipine infusion, currently on as needed meds and clonidine. Fairly under control today. #. AKIresolved #. Acute DVT BLE Status post TPA earlier in hospital course On therapeutic Lovenox Disposition: ICU. Admission and Anticipated Discharge Date Admission Date: April 16, 2021 Subjective Patient lying in bed, tracheostomy status and ventilated for acute respiratory failure secondary to pneumonia secondary to COVID-19 virus infection. Per RN no new acute events overnight, patient had not moved bowel since last 14 days, mineral enema has been tried. Pt on fentanyl. Per RN, pt no responding, wants PEG and LTAC. Physical Exam Physical Exam: GENERAL: Sedated, trachesotomy status, mechanically ventilated. HEENT: No pallor, no icterus. Pupils equal, round and reactive to light. Oral mucosa dry. NECK: No JVD, no neck masses. Tracheostomy status HEART: S1 and S2 heard. Regular rate and rhythm. No murmur, no gallop. RESPIRATORY SYSTEM: Normal AP diameter. No accessory muscle use. No wheezing, decreased b/l breath sounds ABDOMEN: Soft, bowel sounds present, nontender, no distention. Some left-sided hardening of the subcutaneous tissue noted in the belly. Per RN -->Per his this is chronic. CENTRAL NERVOUS SYSTEM:n/a. EXTREMITIES: No edema, no erythema seen. Urinary catheter in situ with darker yellow urine collection. Results & Data Results & Data ([facility]) Vital Signs (Past 12 Hours) Vital Signs Temp Pulse Resp BP Pulse Ox 05/06/21 10:58 108 H 29 H 890 H 05/06/21 08:12 106 H 32 H 91 05/06/21 06:36 37.7 C H 107 H 25 H 05/06/21 06:35 37.7 C H 106 H 29 H 93 05/06/21 06:34 91 H 25 H 93 05/06/21 06:30 37.8 C H 108 H 29 H 137/79 93 05/06/21 06:00 101 H 31 H 146/70 H 92 05/06/21 05:30 109 H 29 H 112/74 92 05/06/21 05:00 99 H 27 H 138/75 92 05/06/21 04:30 102 H 31 H 147/76 H 91 05/06/21 04:00 38.2 C H 104 H 29 H 142/73 H 91 05/06/21 03:31 103 H 31 H 91 05/06/21 03:30 103 H 31 H 146/75 H 91 05/06/21 03:00 104 H 27 H 150/77 H 92 05/06/21 02:30 103 H 29 H 139/83 92 05/06/21 02:00 104 H 28 H 145/72 H 91 05/06/21 01:30 108 H 30 H 150/84 H 93 05/06/21 01:00 93 H 29 H 128/74 92 05/06/21 00:30 107 H 29 H 152/74 H 91 05/06/21 00:00 102 H 31 H 139/71 91 05/05/21 23:42 102 H 30 H 92
[2021-05-06] MEDS: METOPROLOL TARTRATE 25 MG TAB PO SCH ×2 (12:20→21:49)
[2021-05-06] MEDS: PANTOprazole 40 MG in SYRINGE 0 ML IV SCH (12:20)
[2021-05-06] MEDS: fentaNYL citrate 2,500 MCG/250 ML BAG IV SCH (12:22)
[2021-05-06] MEDS: AMPICILLIN/SULBACTAM SOD 3,000 MG in 0.9 % SODIUM CHLORIDE 100 ML IV SCH (17:33)
[2021-05-06] MEDS: INSULIN GLARGINE SOLOSTAR 100 UNITS/ML 3 ML PEN SC SCH (21:48)
[2021-05-06] MEDS: ACETAMINOPHEN SUSP 325 MG/10.15 ML UDC OG PRN (21:49)
[2021-05-07] MEDS: INSULIN ASPART PER UNIT SC SCH ×6 (00:01→20:27)
[2021-05-07] MEDS: AMPICILLIN/SULBACTAM SOD 3,000 MG in 0.9 % SODIUM CHLORIDE 100 ML IV SCH ×5 (00:02→23:54)
[2021-05-07] MEDS: TUBE FEEDING WATER FLUSH OG SCH ×2 (04:01→08:06)
[2021-05-07] MEDS: ACETAMINOPHEN SUSP 325 MG/10.15 ML UDC OG PRN ×3 (04:09→14:02)
[2021-05-07 04:27] LABS: iSTAT Allen Test Pass; iSTAT Art Bld Gas pCO2 Correct 78 mmHg (35-46); iSTAT Art Bld Gas pH Corrected 7.347 (7.35-7.45); iSTAT Arterial Blood Gas HCO3 42 meg/L (19-24); iSTAT Arterial Blood Gas pCO2 70 mmHg (35-46); iSTAT Arterial Blood Gas pH 7.38 (7.35-7.45); iSTAT Arterial Blood Gas pO2 61 mmHg (80-95); iSTAT Arterial Blood Gas pO2 C 71; iSTAT Carbon Dioxide > 40 mmol/L (24-31); iSTAT Hematocrit 33 % (42-52); iSTAT Hemoglobin 11.2 g/dl (14.0-18.0); iSTAT Potassium 3.6 mmol/L (3.3-5.0); iSTAT Site L Radial; iSTAT Sodium 147 mmol/L (135-144)
[2021-05-07] MEDS: oxyCODONE HCL IR 5 MG TAB (IMMEDIATE RELEASE) PO SCH ×2 (05:13→20:27)
[2021-05-07 06:32] LABS: Basophils # (auto) 0.01 K/uL (0-0.2); Basophils % (auto) 0.1 %; Eosinophils # (auto) 0.01 K/uL (0-0.5); Eosinophils % (auto) 0.1 %; Hematocrit (blood only) 38.6 % (42-52); Hemoglobin 11.3 g/dL (14.0-18.0); Immature Granulocytes # (auto) 0.07 K/uL (0.00-0.02); Immature Granulocytes % (auto) 0.5 %; Lymphocytes % (auto) 12.4 %; Mean Corpuscular Hemoglobin 29.7 pg (25-34); Mean Corpuscular Hgb Conc 29.3 g/dL (32-36); Mean Corpuscular Volume 101.3 fL (80-100); Mean Platelet Volume 10.6 fL (7.4-10.4); Monocytes # (auto) 0.13 K/uL (0.11-0.59); Monocytes % (auto) 0.9 %; Neutrophils # (auto) 12.48 K/uL (1.4-6.5); Platelet Count 252 K/uL (130-400); RDW Coefficient of Variation 15.6 % (11.5-14.5); RDW Standard Deviation 56.9 fL (36.4-46.3); Red Blood Count 3.81 M/uL (4.7-6.1)
[2021-05-07 06:48] LABS: BUN Creatinine Ratio 52.2 (10-20); Calcium 9.4 mg/dl (8.5-10.1); Creatinine Clr Calc Pharmacy 122.2 ml/min; Est GFR (African American) 112.6 ml/min; Est GFR (Non-African American) 97.2 ml/min; Magnesium 2.3 mg/dl (1.7-2.4); Phosphorus 2.1 mg/dl (2.5-4.9); Potassium 3.5 mmol/L (3.5-5.1)
[2021-05-07] MEDS ORDERED: POTASSIUM PHOS 3 MMOL/1 ML INFUSION IV STA (06:51)
[2021-05-07] MEDS ORDERED: POTASSIUM PHOSPHATE 21 MMOL in DEXTROSE 5% 500 ML IV ONE (07:30)
[2021-05-07] MEDS: LACTULOSE SYRUP 20 GM/30 ML UDC PO SCH ×3 (08:05→19:48)
[2021-05-07] MEDS: clonazePAM 1 MG TAB PO SCH ×2 (08:05→19:49)
[2021-05-07] MEDS: METOPROLOL TARTRATE 25 MG TAB PO SCH ×2 (08:05→19:49)
[2021-05-07] MEDS: DOCUSATE SODIUM/SENNA 50/8.6MG TAB PO SCH ×2 (08:06→19:48)
[2021-05-07] MEDS: POLYETHYLENE (MIRALAX) 17 GM PACK PO SCH ×2 (08:06→19:48)
[2021-05-07] MEDS: amLODIPine BESYLATE 5 MG TAB PO SCH (08:06)
[2021-05-07] MEDS: ENOXAPARIN INJ 120 MG/0.8 ML SYR SQ SCH (08:06)
[2021-05-07] MEDS: INSULIN GLARGINE SOLOSTAR 100 UNITS/ML 3 ML PEN SC SCH ×2 (08:52→21:26)
--- NOTE | 2021-05-07 09:00 | XRay Report ---
XR chest 1V portable CLINICAL HISTORY: Resp failure. Follow-up bilateral airspace opacities COMPARISON STUDY: 05/06/2021 TECHNIQUE: 1 view of the chest FINDINGS: Single frontal view of the chest demonstrates the cardiomediastinal silhouette to be within normal li mits. Tubes and catheters are unchanged. Compared to previous examination, there is slight interval i mprovement of bilateral interstitial and alveolar opacities. No new confluent alveolar opacities are seen. There is evidence for small left pleural effusion with decreased left basilar atelectasis. Ther e is no evidence for vascular congestion. There is no acute osseous pathology. IMPRESSION: Slight interval improvement from the previous examination with decreased interstitial and alveolar opacities. There is small left pleural effusion with decreased left basilar atelectasis. ACT 112: Negative or not required by law. Electronically signed by: Valdo Marina M.D. 05/07/2021 8:59 AM
[2021-05-07] MEDS ORDERED: fentaNYL citrate 100 MCG/2 ML VIAL IV PRN (10:11)
--- NOTE | 2021-05-07 11:20 | Critical Care Progress Note ---
Date of Service May 07, 2021 Assessment & Plan (1) Acute respiratory failure with hypoxia: (2) Pneumonia due to 2019 novel coronavirus: (3) Obesity: (4) Anxiety: (5) DVT of axillary vein, acute bilateral: (6) Pneumomediastinum: (7) HTN (hypertension): (8) Constipation: Plan: Reason Critically Ill: Acute hypoxic respiratory failure secondary to COVID-19 pneumonia PLAN: Neuro: Anesthesia: Oxycodone Sedation: Clonazepam CT head with chronic microvascular changes but no acute stroke. Sinusitis seen. Resp: --Hypoxic respiratory failure secondary to multilobar COVID-19 pneumonia Patient status post percutaneous tracheostomy placement 05/02/21. ENT performed a trach revision 05/03. Continues to have a large air leak despite tracheostomy revision. CT chest 05/03 shows diffuse pulmonary infiltrates with pneumomediastinum --Pneumomediastinum seen. No subcu emphysema Try to keep low PEEP CV: --Hypertension Off nicardipine drip On amlodipine 10 mg Metoprolol 25 mg every 12 Hydralazine as needed Lower extremity arterial ultrasound of the right leg 05/01 without arterial occlusion or hemodynamically significant stenosis. --NSVT Continue with metoprolol We will increase the dose if need be Keep potassium around 4, magnesium greater than 2, phosphorus around 3 Fluids/Renal: Monitor BUNs/creatinine Replace electrolytes per protocol. ID: Sputum cultures from 05/02 - thus far. Blood cultures from 04/25 with no growth. Fungal blood cultures from 04/25 with no growth as well. Pro-Tomás from 05/02 0.24 --> 0.14 on 05/04 Urine culture from 05/03 with no growth. Sinusitis seen on CT head from 05/03. Fevers improved after the initiation of Zosyn 05/03 --> complete for total of 7 days GI/Nutrition: Continue aggressive bowel regimen including senna, MiraLAX, lactulose and senna. Received mineral oil enema 05/04. CT abdomen and pelvis on 05/03: History of postsurgical changes and heterotrophic calcifications in the anterior abdominal wall noted on CT abdomen. CT also noted gas fluid level in the colon which may reflect an ileus. No obstruction was seen. No evidence of hematoma. Heme: Acute DVT s/p tpa earlier in hospital course Endocrine: ICU hyperglycemia protocol Continue insulin gtt with elevated BSG --Prophylaxis VTE: Therapeutic Lovenox GI: Pantoprazole Lines:Right subclavian central venous access, right radial art line discontinued 05/06/2021, trach revision 05/03 Diet: Tube feeds Plan: In/out: -733, urine output 2250 AB.32/70/61 on PEEP of 8, 40% Chest x-ray does not show any significant change. Patient is getting hyponatremic. We will hold diuretics Decrease oxycodone to 10 mg every 12 hours Follow sputum culture Blood cultures have been repeated today. We will try to remove the subclavian line and put a PICC line in. Hypokalemia and hypophosphatemia being replaced GI consult for PEG tube Patient's was updated on the phone. I have personally spent 38 minutes of critical care time in the direct management of this patient. This is a life/limb threatening event. This includes time spent evaluating patient, direct bedside care, chart review, placing orders, interpretation of diagnostic studies, discussion with consultants, patient, and family members, as well as other required patient management activities. This time is exclusive of all separately billable procedures, and teaching time and separate from and in addition to any other critical care service time. Admission and Anticipated Discharge Date Admission Date: April 16, 2021 Subjective Patient seen and examined at bedside. No acute distress, no delusions overnight. Patient has been spiking fever T-max 39.3 Patient did get methylnaltrexone yesterday but no bowel movement as of yet. Is not on any sedation Unfortunately is not following any commands. He is breathing over the vent Review of Systems Review of Systems: Unobtainable due to reduced consciousness Physical Exam Physical Exam: Constitutional: No acute distress HEENT: PERRLA, positive trach Respiratory system: Decreased antibiotic, no wheeze, rhonchi, positive crackles bilaterally CVS: S1-S2 positive, no murmurs or gallops Abdomen: Soft, nontender, nondistended, decreased bowel sounds, left lower quadrant is firm likely from previous surgery Extremities: +2 pulses bilaterally radialis/ dorsalis pedis, no cyanosis, no edema Neuro: Breathing over the vent, positive pupillary, positive corneal Psych: Unable to assess G/U: Positive Montes Skin: no rashes, warm and dry Lymphatic: no cervical or axillary lymphadenopathy Results & Data Results & Data ([facility]) Vital Signs (Past 12 Hours) Vital Signs Temp Pulse Resp BP Pulse Ox 05/07/21 10:58 103 H 31 H 90 05/07/21 09:00 39.1 C H 104 H 29 H 112/73 92 05/07/21 08:56 39.1 C H 104 H 30 H 115/78 92 05/07/21 08:00 39.2 C H 108 H 58 H 137/84 91 05/07/21 07:35 101 H 30 H 92 05/07/21 07:00 39.3 C H 108 H 29 H 130/79 92 05/07/21 06:45 39.3 C H 107 H 30 H 92 05/07/21 05:50 39.3 C H 104 H 29 H 92 05/07/21 05:40 39.4 C H 102 H 30 H 92 05/07/21 05:30 39.3 C H 103 H 30 H 91 05/07/21 05:00 39.3 C H 106 H 32 H 130/75 91 05/07/21 04:30 39.2 C H 91 H 29 H 91 05/07/21 04:00 39.2 C H 86 31 H 120/73 89 L 05/07/21 03:47 86 33 H 89 L 05/07/21 03:30 39.2 C H 99 H 29 H 91 05/07/21 03:00 39.1 C H 93 H 28 H 116/72 88 L 05/07/21 02:30 39.1 C H 94 H 29 H 116/72 91 05/07/21 02:00 39.1 C H 98 H 30 H 128/76 91 05/07/21 01:30 39.1 C H 97 H 30 H 91 05/07/21 01:00 39.0 C H 93 H 28 H 117/71 90 05/07/21 00:30 39.0 C H 97 H 28 H 91 05/07/21 00:00 39.1 C H 94 H 28 H 118/70 05/06/21 23:40 75 31 H 93 05/06/21 23:30 39.0 C H 92 H 29 H 94 Laboratory Results 05/07/21 05:42 05/07/21 05:42 Coding Level of Care Code Critical Care 1st 30-74 mins Diagnoses Acute respiratory failure with hypoxia J96.01 Pneumonia due to 2019 novel coronavirus U07.1; J12.82 Obesity E66.9 Anxiety F41.9 DVT of axillary vein, acute bilateral I82.A13 Pneumomediastinum J98.2 HTN (hypertension) I10 Constipation K59.00 Time Spent (min) 38
[2021-05-07] MEDS: TUBE FEEDING WATER FLUSH GT SCH ×3 (11:30→23:54)
[2021-05-07] MEDS: PANTOprazole 40 MG in SYRINGE 0 ML IV SCH (11:40)
--- NOTE | 2021-05-07 11:44 | Gastrointestinal Consultation ---
Date of Consultation May 07, 2021 Assessment & Plan (1) Respiratory failure: Patient has a history of respiratory failure as result of COVID-19. GI is consulted for PEG tube placement. Given the patient's prior surgical history, malrotation of the abdomen, leukocytosis and ongoing fevers a PEG is probably not in his best interest. The patient's surgical history (ventral mesh placement) and malrotation would make endoscopic placement quite difficult and unlikely to be successful. Perhaps the best route for nutrition would be through the nasogastric tube that is presently in place. History of Present Illness Reason for Consultation: Feeding tube placement Requesting Physician: Dr. Vincent Attending Physician: Nazanin Vincent MD History of Present Illness The patient is a 51-year-old male with a history of morbid obesity who was admitted to the hospital with Covid induced pneumonia. Unfortunately the patient developed respiratory failure and was ultimately intubated. He did have a prior tracheostomy performed and is presently on the ventilator. He continues to have problems with fevers and a significant elevation of his white blood cell count. The patient is unable to provide any historical information as he is intubated and presently sedated. GI is consulted for feeding tube placement. The patient's past medical history is notable for morbid obesity, a ventral hernia repair with a large piece of mesh in addition to of intestinal mal rotation. Allergies Allergy/AdvReac Type Severity Reaction Status Date / Time methylparaben Allergy Mild ITCHING Unverified 04/16/21 14:03 oxymorphone Allergy Mild ITCHING Unverified 04/16/21 14:03 Home Medications Medication Instructions Recorded Confirmed Type metformin 1,000 mg tablet 1,000 mg PO BIDWMEAL #0 tab 05/04/12 04/16/21 History acetaminophen 650 mg tablet 650 mg PO Q4H PRN #0 tab 10/22/12 04/16/21 History albuterol sulfate 90 mcg/actuation 2 puff INHALATION Q4H PRN 04/16/21 04/16/21 History aerosol inhaler dulaglutide 3 mg/0.5 mL 3 mg SUBCUT WK 04/16/21 04/16/21 History subcutaneous pen injector ([facility]) hydrochlorothiazide 25 mg tablet 25 mg PO DAILY 04/16/21 04/16/21 History omeprazole 20 mg capsule,delayed 20 mg PO DAILY 04/16/21 04/16/21 History release prednisone 10 mg tablet 10 mg PO UD 04/16/21 04/16/21 History testosterone cypionate 200 mg/mL 200 mg IM UD 04/16/21 04/16/21 History intramuscular oil Patient History Medical History (Updated 05/07/21 @ 11:42 by Kori Renee DO) Constipation COVID-19 DM type 2 (diabetes mellitus, type 2) HTN (hypertension) Obesity FARNAZ on CPAP Pneumomediastinum Surgical History H/O laminectomy x 2 History of appendectomy Family History Father Diabetes Hypertension Social History Smoking Status: Never smoker Second Hand Exposure: No; Hx Alcohol Use: Yes Alcohol type: beer Alcohol Intake Frequency: Monthly or Less Hx Substance Use: No Preferred Language: Tanzanian Communication Ability: Effective Cigar Patcher Required: No Beliefs That Will Affect Care: None Current Living Situation: Spouse Current Living Situation Comment: single story home with steps to enter Feels Safe at Home: Yes Assistive Devices: Oxygen - Continuous Physical Exam ENMT: Mallampati Class: III Neck: Tracheotostomy in place Respiratory: Auscultation: + diminished lung sounds, + crackles and + wheezes Cardiovascular: Rate/Rhythm: + tachycardic Gastrointestinal (Abdomen): Prior midline incision with scarring is noted. There appears to be firmness of the left abdomen in general. Results & Data ([facility]) Vital Signs (Past 12 Hours) Vital Signs Temp Pulse Resp BP Pulse Ox 05/07/21 11:15 103 H 05/07/21 10:58 103 H 31 H 90 05/07/21 09:00 39.1 C H 104 H 29 H 112/73 92 05/07/21 08:56 39.1 C H 104 H 30 H 115/78 92 05/07/21 08:00 39.2 C H 108 H 58 H 137/84 91 05/07/21 07:35 101 H 30 H 92 05/07/21 07:00 39.3 C H 108 H 29 H 130/79 92 05/07/21 06:45 39.3 C H 107 H 30 H 05/07/21 05:50 39.3 C H 104 H 29 H 92 05/07/21 05:40 39.4 C H 102 H 30 H 92 05/07/21 05:30 39.3 C H 103 H 30 H 91 05/07/21 05:00 39.3 C H 106 H 32 H 130/75 91 05/07/21 04:30 39.2 C H 91 H 29 H 91 05/07/21 04:00 39.2 C H 86 31 H 120/73 89 L 05/07/21 03:47 86 33 H 89 L 05/07/21 03:30 39.2 C H 99 H 29 H 91 05/07/21 03:00 39.1 C H 93 H 28 H 116/72 88 L 05/07/21 02:30 39.1 C H 94 H 29 H 116/72 91 05/07/21 02:00 39.1 C H 98 H 30 H 128/76 91 05/07/21 01:30 39.1 C H 97 H 30 H 91 05/07/21 01:00 39.0 C H 93 H 28 H 117/71 90 05/07/21 00:30 39.0 C H 97 H 28 H 91 05/07/21 00:00 39.1 C H 94 H 28 H 118/70 05/06/21 23:40 75 31 H 93 Diagnostic Findings T abd pelvis wo con CLINICAL HISTORY: hematoma? TECHNIQUE: Helical axial images of the abdomen and pelvis were obtained. Automated dose lowering techniques and/or adjustment according to patient size were utilized for this exam. This exam was performed without intravenous contrast. COMPARISON: Comparison is made to CT abdomen pelvis 03/25/2013 FINDINGS: Lower chest: There are extensive airspace opacities in the visualized lungs. Mild cardiomegaly is partially visualized. Liver: Unremarkable. No focal lesions are seen. Gallbladder and biliary tree: No calcified gallstones. Normal caliber wall. No intra- or extrahepatic biliary ductal dilation. Pancreas: Unremarkable, no focal lesions. Spleen: Unremarkable. Adrenals: Unremarkable. Kidneys and ureters: Unremarkable. Bladder: Montes catheter is seen. Reproductive organs: Unremarkable. Bowel: Prominent gas fluid levels are seen in the mildly distended colon. Lymph nodes Retroperitoneal: Unremarkable. Mesenteric: Unremarkable. Pelvic: Unremarkable. Peritoneum: Normal. Vessels: Unremarkable. Abdominal wall: Scarring and postsurgical changes are seen in the lower abdominal wall with laxity inferiorly, unchanged. Heterotopic calcifications are seen in the anterior abdominal wall. Bones: Heterotopic bone formation is seen about the pelvis, likely secondary to old fracture. Fixation hardware seen in the lumbosacral spine. IMPRESSION: 1. No evidence of hematoma. 2. Gas fluid level in the colon may reflect ileus. No evidence of obstruction. 3. Chronic laxity in the anterior abdominal wall. Additional findings as above.
--- NOTE | 2021-05-07 12:15 | Hospitalist Progress Note ---
Date of Service May 07, 2021 Assessment & Plan (1) Acute respiratory failure with hypoxia: (2) Pneumonia due to 2019 novel coronavirus: Plan: 51-year-old male with PMH of DM type II, HTN, obesity, GERD, HTN, anxiety and FARNAZ on CPAP presented 04/16 for evaluation of shortness of breath. Tested positive for COVID-19 on 04/06. Patient unvaccinated. At presentation to the ED, patient required 15 L oxygen to maintain saturation. Is being managed for the following: #. Acute respiratory failure with hypoxia #. Pneumonia due to 2019 novel coronavirus #. Moderate pneumomediastinum: 05/03 CTA chest Not vaccinated against Covid, tested positive on 04/06 [employer] via home test. Intubated on 04/24 for respiratory distress --> 05/01 percutaneous tracheostomy done --> 05/03 tracheostomy leak noted/failed tracheostomy exchange at bedside---> emergent reintubation 05/03---> 05/03 revision tracheostomy in OR --> still having trach leak Finished course of Rocephin --> continued to be febrile---> 05/03 Zosyn started per ICU team --> 05/06 Unasyn. WBC and temp stayed WNL for 1-2 days, both have been increasing since. Plan to repeat Bl and Sputum Cx today. Patient tracheostomy status/mechanically ventilated and sedated. Currently on fentanyl drips, MV of 450/28/8.0 cm/50% Patient has developed pneumomediastinum and extensive bilateral airspace opacities. PEEP on the lower side. ICU team managing. Continue with GI prophylaxis. d/w GI, PEG placement is not favourable for him, c/w Tube feed via corsef. #. HTN Blood pressure of remain elevated fairly earlier requiring nicardipine infusion, currently on as needed meds and clonidine. Under control today. #. AKIresolved #. Acute DVT BLE Status post TPA earlier in hospital course On therapeutic Lovenox Disposition: ICU. Admission and Anticipated Discharge Date Admission Date: April 16, 2021 Subjective Patient lying in bed, tracheostomy status and ventilated for acute respiratory failure secondary to pneumonia secondary to COVID-19 virus infection. I was in the ICU round on the patient, patient had not moved bowel since last 15 days, methylnatrexone has been tried. Pt on lactulose. Also since patient continues to spike temp and wbc is elevated, plan to send blood Cx and Sputum Cx again today. Pt off of fentanyl at bedside exam. Was getting TF and KCL drips. Remains on mechanical ventilation via trach tube. Physical Exam Physical Exam: GENERAL: Not responding (pt not on sedation), trachesotomy status, mechanically ventilated (450/28 rr/6 cm/40%) HEENT: No pallor, no icterus. Pupils equal, round and reactive to light. Oral mucosa dry. NECK: No JVD, no neck masses. Tracheostomy status HEART: S1 and S2 heard. Regular rate and rhythm. No murmur, no gallop. RESPIRATORY SYSTEM: Normal AP diameter. No accessory muscle use. No wheezing, decreased b/l breath sounds ABDOMEN: Soft, bowel sounds present, nontender, + tense. Some left-sided hardening of the subcutaneous tissue noted in the belly. Per RN -->Per his this is chronic. CENTRAL NERVOUS SYSTEM:n/a. EXTREMITIES: No edema, no erythema seen. Urinary catheter in situ with darker yellow urine collection. Results & Data Results & Data ([facility]) Vital Signs (Past 12 Hours) Vital Signs Temp Pulse Resp BP Pulse Ox 05/07/21 11:15 103 H 05/07/21 10:58 103 H 31 H 05/07/21 09:00 39.1 C H 104 H 29 H 112/73 05/07/21 08:56 39.1 C H 104 H 30 H 115/78 05/07/21 08:00 39.2 C H 108 H 58 H 137/84 05/07/21 07:35 101 H 30 H 05/07/21 07:00 39.3 C H 108 H 29 H 130/79 05/07/21 06:45 39.3 C H 107 H 30 H 05/07/21 05:50 39.3 C H 104 H 29 H 05/07/21 05:40 39.4 C H 102 H 30 H 05/07/21 05:30 39.3 C H 103 H 30 H 05/07/21 05:00 39.3 C H 106 H 32 H 130/75 05/07/21 04:30 39.2 C H 91 H 29 H 05/07/21 04:00 39.2 C H 86 31 H 120/73 89 L 05/07/21 03:47 86 33 H 89 L 05/07/21 03:30 39.2 C H 99 H 29 H 91 05/07/21 03:00 39.1 C H 93 H 28 H 116/72 88 L 05/07/21 02:30 39.1 C H 94 H 29 H 116/72 91 05/07/21 02:00 39.1 C H 98 H 30 H 128/76 91 05/07/21 01:30 39.1 C H 97 H 30 H 91 05/07/21 01:00 39.0 C H 93 H 28 H 117/71 90 05/07/21 00:30 39.0 C H 97 H 28 H 91
--- NOTE | 2021-05-07 13:30 | Pharmacy Report ---
Pharmacy Glycemic Short Note 2 - Date of Service May 07, 2021 - Glycemic Short BSG Results (Last 24 hours): 05/06/21 05/06/21 05/06/21 17:39 21:04 23:43 Glucose POC Glucose 112 H 140 H 98 05/07/21 05/07/21 05/07/21 03:56 05:42 08:45 Glucose 113 H POC Glucose 118 H 126 H 05/07/21 11:36 Glucose POC Glucose 135 H OUTPATIENT ANTIDIABETIC REGIMEN: * Metformin 1000 mg PO BID * Dulaglutide 3 mg SQ weekly on Thu * A1c: 9.2% (04/17/21) ASSESSMENT: 05/07 * Stressors stable * Many BSG's below goal for ICU status patient, but no hypoglycemia noted. Will slightly loosen CHO ratio and will slightly decrease Lantus 05/06 * Stressors stable - day 3 off of steroids. Novasource renal continues. Insulin drip transitioned off 05/04. * Increase in basal insulin required yesterday, total of 50 units administered. Will continue similar, but possibly decreased slightly based on BSG tonight as some BSG's below goal for ICU status patient * Tightening of correction factor and CHO ratio yesterday PM with good BSG's since that time. Will continue 05/04: * Patient continues on insulin drip, rate now 2.9 units/hr - I anticipate insulin needs to decrease throughout today with steroids no longer on board * Will dose conservatively with Lantus 20 units x 1 now (0.2 unit/kg) with overlap of insulin drip * Will follow drip rates today to see if we can transition off 05/02: * S/p trach 05/01. Peptamen @ goal. Weaning sedation. Norepinephrine discontinued. Dex continues - will d/c 05/03. * Insulin infusion @ stable rate; 3-4units/hr. * Plan to give Lantus 30 units X 1 today to assist with coming off of the insulin drip. Continue insulin infusion today (OK if it weans itself off). Re- evaluate basal insulin in AM. * No change to Novolog PLAN FOR INPATIENT GLYCEMIC CONTROL: * Hold outpatient diabetes medications (metformin, Trulicity) * Lantus 15-25 units BID depending on BSG * Bolus insulin * NovoLog Q 4 hrs to cover carbs in tube feeds * Goal range: 110-140 mg/dL * Correction factor: 12 mg/dL/unit * CHO ratio: 3.5 grams CHO/unit delivered in continuous tube feeds PLAN FOR DISCHARGE: * see 05/04 note
[2021-05-07 16:19] LABS: Phosphorus 3.1 mg/dl (2.5-4.9)
[2021-05-07 18:24] LABS: BUN Creatinine Ratio 49.1 (10-20); Calcium 9.5 mg/dl (8.5-10.1); Creatinine Clr Calc Pharmacy 103.8 ml/min; Est GFR (African American) 92.4 ml/min; Est GFR (Non-African American) 79.7 ml/min; Magnesium 2.4 mg/dl (1.7-2.4); Potassium 3.9 mmol/L (3.5-5.1)
[2021-05-07] MEDS: ACETAMINOPHEN 650 MG SUPP PR PRN (19:49)
[2021-05-07] MEDS: ENOXAPARIN 100 MG/1ML SYR SQ SCH (19:49)
[2021-05-07] MEDS: NOVASOURCE RENAL 2.0 CAL 1000ML BAG OG SCH (21:27)
[2021-05-08] MEDS: INSULIN ASPART PER UNIT SC SCH ×7 (00:16→23:42)
[2021-05-08] MEDS: ACETAMINOPHEN 650 MG SUPP PR PRN (00:16)
[2021-05-08] MEDS ORDERED: ACETAMINOPHEN 1,000 MG/100 ML VIAL IV STA (04:05)
[2021-05-08] MEDS ORDERED: ACETAMINOPHEN 1000 MG/100 ML IV IV ONE (04:14)
[2021-05-08 04:31] LABS: iSTAT Allen Test Pass; iSTAT Art Bld Gas pCO2 Correct 67 mmHg (35-46); iSTAT Art Bld Gas pH Corrected 7.371 (7.35-7.45); iSTAT Arterial Blood Gas HCO3 38 meg/L (19-24); iSTAT Arterial Blood Gas pCO2 59 mmHg (35-46); iSTAT Arterial Blood Gas pH 7.41 (7.35-7.45); iSTAT Arterial Blood Gas pO2 49 mmHg (80-95); iSTAT Arterial Blood Gas pO2 C 59; iSTAT Carbon Dioxide 39 mmol/L (24-31); iSTAT FiO2 40 %; iSTAT Hematocrit 34 % (42-52); iSTAT Hemoglobin 11.6 g/dl (14.0-18.0); iSTAT Site L Radial; iSTAT Sodium 145 mmol/L (135-144)
[2021-05-08 05:07] LABS: iSTAT Allen Test Pass; iSTAT Art Bld Gas pCO2 Correct 59 mmHg (35-46); iSTAT Art Bld Gas pH Corrected 7.408 (7.35-7.45); iSTAT Arterial Blood Gas HCO3 37 meg/L (19-24); iSTAT Arterial Blood Gas pCO2 59 mmHg (35-46); iSTAT Arterial Blood Gas pH 7.41 (7.35-7.45); iSTAT Arterial Blood Gas pO2 49 mmHg (80-95); iSTAT Arterial Blood Gas pO2 C 49; iSTAT Carbon Dioxide 39 mmol/L (24-31); iSTAT Hematocrit 34 % (42-52); iSTAT Hemoglobin 11.6 g/dl (14.0-18.0); iSTAT Site L Radial; iSTAT Sodium 144 mmol/L (135-144)
[2021-05-08 05:07] LABS: iSTAT Allen Test Pass; iSTAT Art Bld Gas pCO2 Correct 62 mmHg (35-46); iSTAT Art Bld Gas pH Corrected 7.389 (7.35-7.45); iSTAT Arterial Blood Gas HCO3 37 meg/L (19-24); iSTAT Arterial Blood Gas pCO2 56 mmHg (35-46); iSTAT Arterial Blood Gas pH 7.43 (7.35-7.45); iSTAT Arterial Blood Gas pO2 49 mmHg (80-95); iSTAT Arterial Blood Gas pO2 C 59; iSTAT Carbon Dioxide 38 mmol/L (24-31); iSTAT Hematocrit 34 % (42-52); iSTAT Hemoglobin 11.6 g/dl (14.0-18.0); iSTAT Potassium 4.1 mmol/L (3.3-5.0); iSTAT Site R Radial; iSTAT Sodium 143 mmol/L (135-144)
[2021-05-08] MEDS ORDERED: STAT IV Infusion **Titration per Protocol STA ×2 (05:16→13:11)
[2021-05-08] MEDS: TUBE FEEDING WATER FLUSH GT SCH ×7 (05:31→23:42)
[2021-05-08] MEDS: AMPICILLIN/SULBACTAM SOD 3,000 MG in 0.9 % SODIUM CHLORIDE 100 ML IV SCH ×2 (05:35→11:50)
[2021-05-08] MEDS: NOREPINEPHRINE/D5W 8 MG/508 ML BAG IV SCH ×2 (05:35→19:51)
[2021-05-08 06:11] LABS: BUN Creatinine Ratio 43.8 (10-20); Calcium 9.7 mg/dl (8.5-10.1); Creatinine Clr Calc Pharmacy 61.4 ml/min; Est GFR (African American) 49.4 ml/min; Est GFR (Non-African American) 42.6 ml/min; Magnesium 2.5 mg/dl (1.7-2.4); Phosphorus 3.8 mg/dl (2.5-4.9)
[2021-05-08 07:09] LABS: Hematocrit (blood only) 40.6 % (42-52); Hemoglobin 11.9 g/dL (14.0-18.0); Immature Granulocytes # (auto) 0.01 K/uL (0.00-0.02); Immature Granulocytes % (auto) 0.2 %; Lymphocytes # (auto) 1.01 K/uL (1.2-3.4); Lymphocytes % (auto) 23.6 %; Mean Corpuscular Hemoglobin 29.2 pg (25-34); Mean Corpuscular Hgb Conc 29.3 g/dL (32-36); Mean Corpuscular Volume 99.8 fL (80-100); Monocytes # (auto) 0.43 K/uL (0.11-0.59); Neutrophils # (auto) 2.83 K/uL (1.4-6.5); Neutrophils % (auto) 66.2 %; Platelet Count 183 K/uL (130-400); RDW Coefficient of Variation 15.7 % (11.5-14.5); RDW Standard Deviation 56.5 fL (36.4-46.3); Red Blood Count 4.07 M/uL (4.7-6.1); White Blood Count 4.28 K/uL (4.8-10.8)
[2021-05-08] MEDS: INSULIN GLARGINE SOLOSTAR 100 UNITS/ML 3 ML PEN SC SCH ×2 (07:30→20:59)
--- NOTE | 2021-05-08 07:33 | XRay Report ---
XR chest 1V portable CLINICAL HISTORY: Resp failure. Follow-up airspace opacities and pleural effusion COMPARISON STUDY: 05/07/2021 TECHNIQUE: 1 view of the chest FINDINGS: Single frontal view of the chest demonstrates the heart to again be enlarged. Tracheostomy tube is ag ain seen. Mild bilateral interstitial and alveolar opacities are again seen and unchanged. No new con fluent alveolar opacities are seen. There is again evidence for left pleural effusion and left basila r atelectasis. There is no evidence for vascular congestion. There is no acute osseous pathology. IMPRESSION: No significant interval change in mild bilateral interstitial and alveolar opacities. Lef t pleural effusion and left basilar atelectasis are again seen. ACT 112: Negative or not required by law. Electronically signed by: Valdo Marina M.D. 05/08/2021 7:31 AM
[2021-05-08] MEDS: DOCUSATE SODIUM/SENNA 50/8.6MG TAB PO SCH ×2 (07:38→19:53)
[2021-05-08] MEDS: POLYETHYLENE (MIRALAX) 17 GM PACK PO SCH ×2 (07:38→19:53)
[2021-05-08] MEDS: oxyCODONE HCL IR 5 MG TAB (IMMEDIATE RELEASE) PO SCH ×2 (07:38→20:07)
[2021-05-08] MEDS: LACTULOSE SYRUP 20 GM/30 ML UDC PO SCH ×3 (07:38→19:53)
[2021-05-08] MEDS: clonazePAM 1 MG TAB PO SCH ×2 (07:38→19:56)
[2021-05-08] MEDS: amLODIPine BESYLATE 5 MG TAB PO SCH (08:38)
[2021-05-08] MEDS: METOPROLOL TARTRATE 25 MG TAB PO SCH (08:39)
--- NOTE | 2021-05-08 11:25 | Critical Care Progress Note ---
Date of Service May 08, 2021 Assessment & Plan (1) Acute respiratory failure with hypoxia: (2) Pneumonia due to 2019 novel coronavirus: (3) Obesity: (4) Anxiety: (5) DVT of axillary vein, acute bilateral: (6) Pneumomediastinum: (7) HTN (hypertension): (8) Constipation: Plan: Reason Critically Ill: Acute hypoxic respiratory failure secondary to COVID-19 pneumonia PLAN: Neuro: Anesthesia: Oxycodone Sedation: Clonazepam CT head with chronic microvascular changes but no acute stroke. Sinusitis seen. Resp: --Hypoxic respiratory failure secondary to multilobar COVID-19 pneumonia Patient status post percutaneous tracheostomy placement 05/02/21. ENT performed a trach revision 05/03. Continues to have a large air leak despite tracheostomy revision. CT chest 05/03 shows diffuse pulmonary infiltrates with pneumomediastinum --Pneumomediastinum seen. No subcu emphysema Try to keep low PEEP CV: --Hypotension/shock Likely sepsis Continue with antibiotics. Unasyn changed to Zosyn to 05/08/21 Lower extremity arterial ultrasound of the right leg 05/01 without arterial occlusion or hemodynamically significant stenosis. --NSVT Continue with metoprolol We will increase the dose if need be Keep potassium around 4, magnesium greater than 2, phosphorus around 3 Fluids/Renal: --ZEN Monitor BUNs/creatinine Replace electrolytes per protocol. ID: Sputum cultures from 05/02 - thus far. Blood cultures from 04/25 with no growth. Fungal blood cultures from 04/25 with no growth as well. Pro-Tomás from 05/02 0.24 --> 0.14 on 05/04 Urine culture from 05/03 with no growth. Sinusitis seen on CT head from 05/03. Fevers improved after the initiation of Zosyn 05/03 --> complete for total of 7 days GI/Nutrition: Continue aggressive bowel regimen including senna, MiraLAX, lactulose and senna. Received mineral oil enema 05/04. CT abdomen and pelvis on 05/03: History of postsurgical changes and heterotrophic calcifications in the anterior abdominal wall noted on CT abdomen. CT also noted gas fluid level in the colon which may reflect an ileus. No obstruction was seen. No evidence of hematoma. Heme: Acute DVT s/p tpa earlier in hospital course Endocrine: ICU hyperglycemia protocol Continue insulin gtt with elevated BSG --Prophylaxis VTE: Therapeutic Lovenox GI: Pantoprazole Lines: Left arm PICC 05/07/2021, trach revision 05/03, Montes replaced 05-08-21 Diet: Tube feeds Plan: In/out: +2.4 L, urine output 1326 AB.41/59/49 on 30% PEEP of six Positive bowel movement today I will change the Unasyn to Zosyn again given the thick secretions from around the trach site. Patient has new onset ZEN could be from the hypotensive episode overnight Repeat BMP as well as CBC Repeat blood cultures are negative to date from 05/07/2021, UA has also been repeated I will do CT head, CT chest abdomen and pelvis Continue with vasopressor support to keep MAP greater than 65 Decrease the dose of oxycodone I have personally spent 39 minutes of critical care time in the direct management of this patient. This is a life/limb threatening event. This includes time spent evaluating patient, direct bedside care, chart review, placing orders, interpretation of diagnostic studies, discussion with consultants, patient, and family members, as well as other required patient management activities. This time is exclusive of all separately billable procedures, and teaching time and separate from and in addition to any other critical care service time. Admission and Anticipated Discharge Date Admission Date: April 16, 2021 Subjective Patient seen and family bedside. No acute distress Patient was on Levophed 0.05 He has been spiking fever as high as 39.4 C His breathing over the vent Map at the time of examination was 65. Does not follow commands Review of Systems Review of Systems: Unobtainable due to reduced consciousness Physical Exam Physical Exam: Constitutional: No acute distress HEENT: PERRLA, positive trach Respiratory system: Decreased antibiotic, no wheeze, rhonchi, positive crackles bilaterally CVS: S1-S2 positive, no murmurs or gallops Abdomen: Soft, nontender, nondistended, decreased bowel sounds, left lower quadrant is firm likely from previous surgery Extremities: +2 pulses bilaterally radialis/ dorsalis pedis, no cyanosis, no edema Neuro: Breathing over the vent, positive pupillary, positive corneal Psych: Unable to assess G/U: Positive Montes Skin: no rashes, warm and dry Lymphatic: no cervical or axillary lymphadenopathy Results & Data Results & Data ([facility]) Vital Signs (Past 12 Hours) Vital Signs Temp Pulse Resp BP Pulse Ox 05/08/21 11:13 106 H 30 H 93 05/08/21 08:45 39.3 C H 104 H 29 H 101/72 95 05/08/21 08:30 109 H 28 H 105/74 93 05/08/21 08:15 104 H 28 H 112/69 92 05/08/21 08:00 106 H 28 H 98/70 L 93 05/08/21 07:45 39.3 C H 101 H 29 H 108/78 93 05/08/21 07:34 104 H 30 H 94 05/08/21 07:30 106 H 28 H 113/79 93 05/08/21 07:15 102 H 28 H 93/69 L 93 05/08/21 07:00 97 H 29 H 107/75 89 L 05/08/21 06:45 97 H 28 H 99/68 L 92 05/08/21 06:24 39.4 C H 100 H 27 H 92 05/08/21 06:15 97 H 28 H 114/79 91 05/08/21 06:00 39.4 C H 100 H 28 H 114/81 93 05/08/21 05:45 96 H 31 H 83/66 L 97 05/08/21 05:40 106 H 29 H 93 05/08/21 05:37 39.5 C H 103 H 29 H 79/50 L 92 05/08/21 05:35 105 H 28 H 93 05/08/21 05:33 103 H 29 H 93 05/08/21 05:30 108 H 30 H 92 05/08/21 05:25 103 H 30 H 92 05/08/21 05:20 105 H 29 H 93 05/08/21 05:15 105 H 28 H 91 05/08/21 05:10 98 H 30 H 83/63 L 89 L 05/08/21 05:05 107 H 29 H 80/57 L 94 05/08/21 05:00 39.6 C H 107 H 30 H 80/57 L 93 05/08/21 04:30 105 H 29 H 86 L 05/08/21 04:15 99 H 30 H 91 05/08/21 04:00 39.7 C H 102 H 29 H 90/62 L 89 L 05/08/21 03:30 105 H 29 H 89 L 05/08/21 03:00 106 H 29 H 89/66 L 92 05/08/21 02:30 39.8 C H 98 H 30 H 89 L 05/08/21 02:04 103 H 29 H 86 L 05/08/21 02:00 96 H 30 H 86/61 L 90 05/08/21 01:30 39.6 C H 101 H 31 H 89 L 05/08/21 01:00 39.6 C H 116 H 33 H 83 L 05/08/21 00:30 100 H 31 H 95 05/08/21 00:00 39.9 C H 103 H 31 H 112/73 89 L 05/07/21 23:30 100 H 29 H 89 L Laboratory Results 05/08/21 05:07 05/08/21 05:07 Coding Level of Care Code Critical Care 1st 30-74 mins Diagnoses Acute respiratory failure with hypoxia J96.01 Pneumonia due to 2019 novel coronavirus U07.1; J12.82 Obesity E66.9 Anxiety F41.9 DVT of axillary vein, acute bilateral I82.A13 Pneumomediastinum J98.2 HTN (hypertension) I10 Constipation K59.00 Time Spent (min) 39
[2021-05-08] MEDS: LANSOPRAZOLE 30 MG SOLTAB NG SCH (11:47)
[2021-05-08 11:50] LABS: Appearance Urine Cloudy (Clear); Bacteria Urine Automated Negative (Negative); Blood Urine 2+ (Negative); Color Urine Dark Yellow; Epithelial Cell Urine Auto >30 /lpf (0-5); Glucose Urine UA Negative (Negative); Ketones Urine Trace (Negative); Leukocyte Esterase Urine Trace (Negative); Nitrite Urine Negative (Negative); Protein Urine 1+ (Negative); RBC Urine Automated >30 /hpf (0-4); Specific Gravity Urine 1.029 (1.000-1.030); Urobilinogen Urine Negative (Negative)
[2021-05-08 12:02] LABS: Bilirubin Urine 1+ (Negative)
[2021-05-08 12:26] LABS: Cast Urine Automated 0 /lpf (0-5)
[2021-05-08] MEDS ORDERED: PIPERACILLIN/TAZOBACTAM 4.5 GM in DEXTROSE 5% 100 ML IV ONE (12:30)
[2021-05-08] MEDS ORDERED: PIPERACILL/TAZOBAC CONSULT ACTIVE PRN (12:40)
[2021-05-08 13:01] LABS: BUN Creatinine Ratio 42.2 (10-20); Calcium 9.8 mg/dl (8.5-10.1); Est GFR (African American) 37.6 ml/min; Est GFR (Non-African American) 32.4 ml/min; Magnesium 2.6 mg/dl (1.7-2.4); Phosphorus 5.5 mg/dl (2.5-4.9)
[2021-05-08] MEDS ORDERED: NORMOSOL-R 1,000 ML IV ONE (13:23)
[2021-05-08] MEDS: ENOXAPARIN 100 MG/1ML SYR SQ SCH (13:31)
[2021-05-08 13:37] LABS: Hematocrit (blood only) 40.8 % (42-52); Hemoglobin 12.1 g/dL (14.0-18.0); Mean Corpuscular Hemoglobin 29.7 pg (25-34); Mean Corpuscular Hgb Conc 29.7 g/dL (32-36); Mean Corpuscular Volume 100.2 fL (80-100); Mean Platelet Volume 10.8 fL (7.4-10.4); Nucleated RBC # (auto) 0.06 K/uL (0-0); Nucleated RBC % (auto) 0.7 %; Platelet Count 212 K/uL (130-400); RDW Coefficient of Variation 15.8 % (11.5-14.5); RDW Standard Deviation 57.3 fL (36.4-46.3); Red Blood Count 4.07 M/uL (4.7-6.1); White Blood Count 7.78 K/uL (4.8-10.8)
[2021-05-08 13:38] LABS: Basophils # (auto) 0.01 K/uL (0-0.2); Basophils % (auto) 0.1 %; Immature Granulocytes # (auto) 0.03 K/uL (0.00-0.02); Immature Granulocytes % (auto) 0.4 %; Lymphocytes # (auto) 1.15 K/uL (1.2-3.4); Lymphocytes % (auto) 14.8 %; Macrocytosis Present; Monocytes # (auto) 1.03 K/uL (0.11-0.59); Monocytes % (auto) 13.2 %; Neutrophils # (auto) 5.56 K/uL (1.4-6.5); Neutrophils % (auto) 71.5 %; Polychromasia 1+
[2021-05-08] MEDS ORDERED: TUBE FEEDING WATER FLUSH GT SCH (14:00)
[2021-05-08] MEDS: VASOPRESSIN 20 UNITS in 0.9 % SODIUM CHLORIDE 100 ML IV SCH ×2 (14:03→19:51)
[2021-05-08] MEDS: HEPARIN SODIUM/DEXTROSE 25,000 UNITS/500 ML BAG IV SCH (14:04)
--- NOTE | 2021-05-08 14:09 | Hospitalist Progress Note ---
Date of Service May 08, 2021 Assessment & Plan (1) Acute respiratory failure with hypoxia: (2) Pneumonia due to 2019 novel coronavirus: Plan: 51-year-old male with PMH of DM type II, HTN, obesity, GERD, HTN, anxiety and FARNAZ on CPAP presented 04/16 for evaluation of shortness of breath. Tested positive for COVID-19 on 04/06. Patient unvaccinated. At presentation to the ED, patient required 15 L oxygen to maintain saturation. Is being managed for the following: #. Acute respiratory failure with hypoxia #. Pneumonia due to 2019 novel coronavirus #. 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 Intubated on 04/24 for respiratory distress --> 05/01 percutaneous tracheostomy done --> 05/03 tracheostomy leak noted/failed tracheostomy exchange at bedside---> emergent reintubation 05/03---> 05/03 revision tracheostomy in OR Finished course of Rocephin --> continued to be febrile---> 05/03 Zosyn started per ICU team --> 05/06 Unasyn. Patient tracheostomy status/mechanically ventilated and sedated. Currently on fentanyl drips, MV of 450//8.0 cm/50% Patient has developed pneumomediastinum and extensive bilateral airspace opacities. Off sedation but still unconscious Hypotensive today with fevers Likely Septic shock Currently on levophed Got IVF bolus Unasyn changed to zosyn per ICU team. Blood culturs from yesterday negative so far. Culture from trach secretions sent Will get CT head/chest/abd/pelvis when able Per GI: PEG placement is not favourable for him due to surgical hx, c/w Tube feed via corsef. #. HTN Hypotensive as above #. ZEN Had ZEN on 04/25 to 04/27 which resolved Developed ZEN again today with Cr increasing upto 2.23 Likely due to hypotension Got IVF bolus Monitor. Avoid nephrotoxins #. Acute DVT BLE Status post TPA earlier in hospital course Was on therapeutic Lovenox. Now changed to heparin drip due to ZEN Disposition: ICU. oncology account specialist already updated today Admission and Anticipated Discharge Date Admission Date: April 16, 2021 Subjective Patient seen and examined Remains on mechanical ventilation via trach Patient is off sedation but still remains unresponsive Central line was removed yesterday Continues to spike fevers Became hypotensive and hypoxic enroute to get CT head/Chest/Abd/pelvis today Developed ZEN today Review of Systems Review of Systems: Unobtainable due to endotracheal tube and Unobtainable due to reduced consciousness Physical Exam Constitutional: + mechanically ventilated; no acute distress Unconscious Eyes: PERRL ENMT: Trach in situ Respiratory: On mechanical laboratory technician vent via trach Diminished breath sounds +crackles Cardiovascular: Rate/Rhythm: regular rate and regular rhythm S1 S2 Gastrointestinal (Abdomen): Left lower quadrant is firm (reported to be chronic per previous providers), other areas soft +Bowel sounds Musculoskeletal: No edema Neurologic: Unconscious Limited exam due to conscious level/mental status Genitourinary: Montes in situ Results & Data Results & Data ([facility]) Vital Signs (Past 12 Hours) Vital Signs Temp Pulse Resp BP Pulse Ox 05/08/21 13:45 39.4 C H 105 H 28 H 95/61 L 97 05/08/21 13:30 39.5 C H 104 H 28 H 91/59 L 96 05/08/21 13:15 39.5 C H 105 H 28 H 91/59 L 93 05/08/21 13:09 39.5 C H 105 H 29 H 78/59 L 95 05/08/21 13:00 39.5 C H 107 H 30 H 79/59 L 95 05/08/21 12:46 39.5 C H 102 H 29 H 82/54 L 86 L 05/08/21 12:31 39.5 C H 108 H 29 H 95/70 L 91 05/08/21 12:15 39.5 C H 103 H 29 H 92/69 L 93 05/08/21 12:00 39.5 C H 107 H 29 H 93/60 L 93 05/08/21 11:45 39.5 C H 107 H 29 H 93/68 L 94 05/08/21 11:30 39.5 C H 111 H 29 H 95/70 L 93 05/08/21 11:23 106 H 05/08/21 11:15 39.5 C H 103 H 29 H 100/67 93 05/08/21 11:13 106 H 30 H 93 05/08/21 11:00 39.4 C H 107 H 29 H 96/73 L 93 05/08/21 10:58 39.4 C H 99 H 31 H 78/65 L 92 05/08/21 10:45 39.3 C H 108 H 32 H 86/59 L 89 L 05/08/21 10:30 39.2 C H 105 H 30 H 97/73 L 92 05/08/21 10:15 39.4 C H 110 H 29 H 98/72 L 94 05/08/21 10:00 39.4 C H 109 H 30 H 95/71 L 94 05/08/21 09:45 39.3 C H 108 H 29 H 91/73 L 93 05/08/21 09:30 39.3 C H 107 H 28 H 103/70 95 05/08/21 09:15 39.1 C H 108 H 28 H 98/83 L 95 05/08/21 09:00 107 H 26 H 111/75 95 05/08/21 08:45 39.3 C H 104 H 29 H 101/72 95 05/08/21 08:30 109 H 28 H 105/74 93 05/08/21 08:15 104 H 28 H 112/69 92 05/08/21 08:00 106 H 28 H 98/70 L 93 05/08/21 07:45 39.3 C H 101 H 29 H 108/78 93 05/08/21 07:34 104 H 30 H 94 05/08/21 07:30 106 H 28 H 113/79 93 05/08/21 07:15 102 H 28 H 93/69 L 93 05/08/21 07:00 97 H 29 H 107/75 89 L 05/08/21 06:45 97 H 28 H 99/68 L 92 05/08/21 06:24 39.4 C H 100 H 27 H 92 05/08/21 06:15 97 H 28 H 114/79 91 05/08/21 06:00 39.4 C H 100 H 28 H 114/81 93 05/08/21 05:45 96 H 31 H 83/66 L 97 05/08/21 05:40 106 H 29 H 93 05/08/21 05:37 39.5 C H 103 H 29 H 79/50 L 92 05/08/21 05:35 105 H 28 H 93 05/08/21 05:33 103 H 29 H 93 05/08/21 05:30 108 H 30 H 92 02/02/22 05:25 103 H 30 H 92 05/08/21 05:20 105 H 29 H 93 05/08/21 05:15 105 H 28 H 91 05/08/21 05:10 98 H 30 H 83/63 L 89 L 05/08/21 05:05 107 H 29 H 80/57 L 94 05/08/21 05:00 39.6 C H 107 H 30 H 80/57 L 93 05/08/21 04:30 105 H 29 H 86 L 05/08/21 04:15 99 H 30 H 91 05/08/21 04:00 39.7 C H 102 H 29 H 90/62 L 89 L 05/08/21 03:30 105 H 29 H 89 L 05/08/21 03:00 106 H 29 H 89/66 L 92 05/08/21 02:30 39.8 C H 98 H 30 H 89 L Laboratory Results Abnormal lab results 05/07/21 05/07/21 05/07/21 Range/Units 15:47 19:55 23:58 WBC (4.8-10.8) K/uL RBC (4.7-6.1) M/uL Hgb (14.0-18.0) g/dL POC Hgb (14.0-18.0) g/dl Hct (42-52) % POC Hct (42-52) % MCV (80-100) fL MCHC (32-36) g/dL RDW Std Deviation (36.4-46.3) fL RDW Coeff of Raisa (11.5-14.5) % MPV (7.4-10.4) fL Lymph # (Auto) (1.2-3.4) K/uL Story # (Auto) (0.11-0.59) K/uL Immature Gran # (Auto) (0.00-0.02) K/uL Absolute Nucleated RBC (0-0) K/uL POC pCO2 (35-46) mmHg POC pO2 (80-95) mmHg POC HCO3 (19-24) jordan/L POC Total CO2 (24-31) mmol/L POC Base Excess (-9-1.8) jordan/L ABG pCO2 (Temp Corrct (35-46) mmHg POC ABG O2 Sat (90-95) % POC Sodium (135-144) mmol/L Sodium 148 H (136-145) mmol/L Carbon Dioxide 40 H (21-32) mmol/L BUN 52 H (6-23) mg/dl Creatinine (0.6-1.4) mg/dl BUN/Creatinine Ratio 49.1 H (10-20) Glucose 124 H (70-99(Fasting)) mg/dl POC Glucose 109 H 130 H (70-99) mg/dl Phosphorus (2.5-4.9) mg/dl Magnesium (1.7-2.4) mg/dl Procalcitonin (0-0.5) ng/ml Urine Appearance (Clear) Urine Protein (Negative) Urine Ketones (Negative) Urine Blood (Negative) Urine Bilirubin (Negative) Ur Leukocyte Esterase (Negative) Urine RBC (Auto) (0-4) /hpf U Epithel Cells (Auto) (0-5) /lpf Granular Casts (0) /lpf 05/08/21 05/08/21 05/08/21 Range/Units 04:09 04:17 04:45 WBC (4.8-10.8) K/uL RBC (4.7-6.1) M/uL Hgb (14.0-18.0) g/dL POC Hgb 11.6 L 11.6 L (14.0-18.0) g/dl Hct (42-52) % POC Hct 34 L 34 L (42-52) % MCV (80-100) fL MCHC (32-36) g/dL RDW Std Deviation (36.4-46.3) fL RDW Coeff of Raisa (11.5-14.5) % MPV (7.4-10.4) fL Lymph # (Auto) (1.2-3.4) K/uL Story # (Auto) (0.11-0.59) K/uL Immature Gran # (Auto) (0.00-0.02) K/uL Absolute Nucleated RBC (0-0) K/uL POC pCO2 59 H 56 H (35-46) mmHg POC pO2 49 L 49 L (80-95) mmHg POC HCO3 38 H 37 H (19-24) jordan/L POC Total CO2 39 H 38 H (24-31) mmol/L POC Base Excess 13.0 H 12.0 H (-9-1.8) jordan/L ABG pCO2 (Temp Corrct 67 H 62 H (35-46) mmHg POC ABG O2 Sat 83.0 L 84.0 L (90-95) % POC Sodium 145 H (135-144) mmol/L Sodium (136-145) mmol/L Carbon Dioxide (21-32) mmol/L BUN (6-23) mg/dl Creatinine (0.6-1.4) mg/dl BUN/Creatinine Ratio (10-20) Glucose (70-99(Fasting)) mg/dl POC Glucose 151 H (70-99) mg/dl Phosphorus (2.5-4.9) mg/dl Magnesium (1.7-2.4) mg/dl Procalcitonin (0-0.5) ng/ml Urine Appearance (Clear) Urine Protein (Negative) Urine Ketones (Negative) Urine Blood (Negative) Urine Bilirubin (Negative) Ur Leukocyte Esterase (Negative) Urine RBC (Auto) (0-4) /hpf U Epithel Cells (Auto) (0-5) /lpf Granular Casts (0) /lpf 05/08/21 05/08/21 05/08/21 Range/Units 04:55 05:07 05:07 WBC 4.28 L D (4.8-10.8) K/uL RBC 4.07 L (4.7-6.1) M/uL Hgb 11.9 L (14.0-18.0) g/dL POC Hgb 11.6 L (14.0-18.0) g/dl Hct 40.6 L (42-52) % POC Hct 34 L (42-52) % MCV (80-100) fL MCHC 29.3 L (32-36) g/dL RDW Std Deviation 56.5 H (36.4-46.3) fL RDW Coeff of Raisa 15.7 H (11.5-14.5) % MPV 11.0 H (7.4-10.4) fL Lymph # (Auto) 1.01 L (1.2-3.4) K/uL Story # (Auto) (0.11-0.59) K/uL Immature Gran # (Auto) (0.00-0.02) K/uL Absolute Nucleated RBC (0-0) K/uL POC pCO2 59 H (35-46) mmHg POC pO2 49 L (80-95) mmHg POC HCO3 37 H (19-24) jordan/L POC Total CO2 39 H (24-31) mmol/L POC Base Excess 12.0 H (-9-1.8) jordan/L ABG pCO2 (Temp Corrct 59 H (35-46) mmHg POC ABG O2 Sat 83.0 L (90-95) % POC Sodium (135-144) mmol/L Sodium (136-145) mmol/L Carbon Dioxide 36 H (21-32) mmol/L BUN 78 H D (6-23) mg/dl Creatinine 1.78 H D (0.6-1.4) mg/dl BUN/Creatinine Ratio 43.8 H (10-20) Glucose 150 H (70-99(Fasting)) mg/dl POC Glucose (70-99) mg/dl Phosphorus (2.5-4.9) mg/dl Magnesium 2.5 H (1.7-2.4) mg/dl Procalcitonin (0-0.5) ng/ml Urine Appearance (Clear) Urine Protein (Negative) Urine Ketones (Negative) Urine Blood (Negative) Urine Bilirubin (Negative) Ur Leukocyte Esterase (Negative) Urine RBC (Auto) (0-4) /hpf U Epithel Cells (Auto) (0-5) /lpf Granular Casts (0) /lpf 05/08/21 05/08/21 05/08/21 Range/Units 05:20 07:24 10:40 WBC (4.8-10.8) K/uL RBC (4.7-6.1) M/uL Hgb (14.0-18.0) g/dL POC Hgb (14.0-18.0) g/dl Hct (42-52) % POC Hct (42-52) % MCV (80-100) fL MCHC (32-36) g/dL RDW Std Deviation (36.4-46.3) fL RDW Coeff of Raisa (11.5-14.5) % MPV (7.4-10.4) fL Lymph # (Auto) (1.2-3.4) K/uL Story # (Auto) (0.11-0.59) K/uL Immature Gran # (Auto) (0.00-0.02) K/uL Absolute Nucleated RBC (0-0) K/uL POC pCO2 (35-46) mmHg POC pO2 (80-95) mmHg POC HCO3 (19-24) jordan/L POC Total CO2 (24-31) mmol/L POC Base Excess (-9-1.8) jordan/L ABG pCO2 (Temp Corrct (35-46) mmHg POC ABG O2 Sat (90-95) % POC Sodium (135-144) mmol/L Sodium (136-145) mmol/L Carbon Dioxide (21-32) mmol/L BUN (6-23) mg/dl Creatinine (0.6-1.4) mg/dl BUN/Creatinine Ratio (10-20) Glucose (70-99(Fasting)) mg/dl POC Glucose 113 H (70-99) mg/dl Phosphorus (2.5-4.9) mg/dl Magnesium (1.7-2.4) mg/dl Procalcitonin 1.14 H (0-0.5) ng/ml Urine Appearance Cloudy A (Clear) Urine Protein 1+ H (Negative) Urine Ketones Trace H (Negative) Urine Blood 2+ H (Negative) Urine Bilirubin 1+ H (Negative) Ur Leukocyte Esterase Trace H (Negative) Urine RBC (Auto) >30 H (0-4) /hpf U Epithel Cells (Auto) >30 H (0-5) /lpf Granular Casts 1-5 H (0) /lpf 05/08/21 05/08/21 05/08/21 Range/Units 12:15 12:15 16:00 WBC (4.8-10.8) K/uL RBC 4.07 L (4.7-6.1) M/uL Hgb 12.1 L (14.0-18.0) g/dL POC Hgb (14.0-18.0) g/dl Hct 40.8 L (42-52) % POC Hct (42-52) % MCV 100.2 H (80-100) fL MCHC 29.7 L (32-36) g/dL RDW Std Deviation 57.3 H (36.4-46.3) fL RDW Coeff of Raisa 15.8 H (11.5-14.5) % MPV 10.8 H (7.4-10.4) fL Lymph # (Auto) 1.15 L (1.2-3.4) K/uL Story # (Auto) 1.03 H (0.11-0.59) K/uL Immature Gran # (Auto) 0.03 H (0.00-0.02) K/uL Absolute Nucleated RBC 0.06 H (0-0) K/uL POC pCO2 (35-46) mmHg POC pO2 (80-95) mmHg POC HCO3 (19-24) jordan/L POC Total CO2 (24-31) mmol/L POC Base Excess (-9-1.8) jordan/L ABG pCO2 (Temp Corrct (35-46) mmHg POC ABG O2 Sat (90-95) % POC Sodium (135-144) mmol/L Sodium 147 H (136-145) mmol/L Carbon Dioxide 37 H (21-32) mmol/L BUN 94 H (6-23) mg/dl Creatinine 2.23 H D (0.6-1.4) mg/dl BUN/Creatinine Ratio 42.2 H (10-20) Glucose (70-99(Fasting)) mg/dl POC Glucose 64 L* (70-99) mg/dl Phosphorus 5.5 H (2.5-4.9) mg/dl Magnesium 2.6 H (1.7-2.4) mg/dl Procalcitonin (0-0.5) ng/ml Urine Appearance (Clear) Urine Protein (Negative) Urine Ketones (Negative) Urine Blood (Negative) Urine Bilirubin (Negative) Ur Leukocyte Esterase (Negative) Urine RBC (Auto) (0-4) /hpf U Epithel Cells (Auto) (0-5) /lpf Granular Casts (0) /lpf 05/08/21 05/08/21 Range/Units 16:01 16:17 WBC (4.8-10.8) K/uL RBC (4.7-6.1) M/uL Hgb (14.0-18.0) g/dL POC Hgb (14.0-18.0) g/dl Hct (42-52) % POC Hct (42-52) % MCV (80-100) fL MCHC (32-36) g/dL RDW Std Deviation (36.4-46.3) fL RDW Coeff of Raisa (11.5-14.5) % MPV (7.4-10.4) fL Lymph # (Auto) (1.2-3.4) K/uL Story # (Auto) (0.11-0.59) K/uL Immature Gran # (Auto) (0.00-0.02) K/uL Absolute Nucleated RBC (0-0) K/uL POC pCO2 (35-46) mmHg POC pO2 (80-95) mmHg POC HCO3 (19-24) jordan/L POC Total CO2 (24-31) mmol/L POC Base Excess (-9-1.8) jordan/L ABG pCO2 (Temp Corrct (35-46) mmHg POC ABG O2 Sat (90-95) % POC Sodium (135-144) mmol/L Sodium (136-145) mmol/L Carbon Dioxide (21-32) mmol/L BUN (6-23) mg/dl Creatinine (0.6-1.4) mg/dl BUN/Creatinine Ratio (10-20) Glucose (70-99(Fasting)) mg/dl POC Glucose 68 L* 104 H (70-99) mg/dl Phosphorus (2.5-4.9) mg/dl Magnesium (1.7-2.4) mg/dl Procalcitonin (0-0.5) ng/ml Urine Appearance (Clear) Urine Protein (Negative) Urine Ketones (Negative) Urine Blood (Negative) Urine Bilirubin (Negative) Ur Leukocyte Esterase (Negative) Urine RBC (Auto) (0-4) /hpf U Epithel Cells (Auto) (0-5) /lpf Granular Casts (0) /lpf
--- NOTE | 2021-05-08 14:59 | Pharmacy Report ---
Pharmacy Glycemic Short Note 2 - Date of Service May 08, 2021 - Glycemic Short BSG Results (Last 24 hours): 05/07/21 05/07/21 05/07/21 15:11 15:47 19:55 Glucose 124 H POC Glucose 127 H 109 H 05/07/21 05/08/21 05/08/21 23:58 04:09 05:07 Glucose 150 H POC Glucose 130 H 151 H 05/08/21 05/08/21 05/08/21 07:24 11:45 12:15 Glucose 78 POC Glucose 113 H 84 OUTPATIENT ANTIDIABETIC REGIMEN: * Metformin 1000 mg PO BID * Dulaglutide 3 mg SQ weekly on Thu * A1c: 9.2% (04/17/21) ASSESSMENT: 05/08: * Patient well controlled this morning after 30 units basal and 59 units sarbjit log. BSGs trended down at lunchtime, and TFS placed on hold. Will reduce lantus scale for this evening and loosen CR. 05/07 * Stressors stable * Many BSG's below goal for ICU status patient, but no hypoglycemia noted. Will slightly loosen CHO ratio and will slightly decrease Lantus 05/06 * Stressors stable - day 3 off of steroids. Novasource renal continues. Insulin drip transitioned off 05/04. * Increase in basal insulin required yesterday, total of 50 units administered. Will continue similar, but possibly decreased slightly based on BSG tonight as some BSG's below goal for ICU status patient * Tightening of correction factor and CHO ratio yesterday PM with good BSG's since that time. Will continue 05/04: * Patient continues on insulin drip, rate now 2.9 units/hr - I anticipate insulin needs to decrease throughout today with steroids no longer on board * Will dose conservatively with Lantus 20 units x 1 now (0.2 unit/kg) with overlap of insulin drip * Will follow drip rates today to see if we can transition off 05/02: * S/p trach 05/01. Peptamen @ goal. Weaning sedation. Norepinephrine discontinued. Dex continues - will d/c 05/03. * Insulin infusion @ stable rate; 3-4units/hr. * Plan to give Lantus 30 units X 1 today to assist with coming off of the insulin drip. Continue insulin infusion today (OK if it weans itself off). Re- evaluate basal insulin in AM. * No change to Novolog PLAN FOR INPATIENT GLYCEMIC CONTROL: * Hold outpatient diabetes medications (metformin, Trulicity) * Lantus 15 units this morning * Lantus 0-10-15 units this evening depending on BSG * Bolus insulin * NovoLog Q 4 hrs to cover carbs in tube feeds * Goal range: 110-140 mg/dL * Correction factor: 12 mg/dL/unit * CHO ratio: 5 grams CHO/unit delivered in continuous tube feeds PLAN FOR DISCHARGE: * see 05/04 note
[2021-05-08] MEDS: DEXTROSE 50% 50 ML SYRINGE IV PRN (16:04)
[2021-05-08] MEDS ORDERED: ONDANSETRON INJ 2 MG/ML 2 ML VIAL IV PRN (16:13)
[2021-05-08] MEDS: PIPERACILLIN/TAZOBACTAM 4.5 GM in DEXTROSE 5% 100 ML IV SCH (17:29)
[2021-05-08 21:33] LABS: Partial Thromboplastin Ratio 2.6
[2021-05-08 21:36] LABS: Partial Thromboplastin Time 67.3 Seconds (21.0-31.0)
[2021-05-09] MEDS: ACETAMINOPHEN SUSP 325 MG/10.15 ML UDC OG PRN ×3 (01:55→19:58)
[2021-05-09] MEDS: PIPERACILLIN/TAZOBACTAM 4.5 GM in DEXTROSE 5% 100 ML IV SCH ×3 (01:55→17:15)
[2021-05-09 04:05] LABS: iSTAT Allen Test Pass; iSTAT Art Bld Gas pCO2 Correct 79 mmHg (35-46); iSTAT Art Bld Gas pH Corrected 7.284 (7.35-7.45); iSTAT Arterial Blood Gas HCO3 37 meg/L (19-24); iSTAT Arterial Blood Gas pCO2 72 mmHg (35-46); iSTAT Arterial Blood Gas pH 7.31 (7.35-7.45); iSTAT Arterial Blood Gas pO2 134 mmHg (80-95); iSTAT Arterial Blood Gas pO2 C 147; iSTAT Carbon Dioxide 39 mmol/L (24-31); iSTAT FiO2 60 %; iSTAT Hematocrit 31 % (42-52); iSTAT Hemoglobin 10.5 g/dl (14.0-18.0); iSTAT Potassium 4.9 mmol/L (3.3-5.0); iSTAT Site R Radial; iSTAT Sodium 142 mmol/L (135-144)
[2021-05-09] MEDS: INSULIN ASPART PER UNIT SC SCH ×5 (04:48→20:30)
[2021-05-09] MEDS: HEPARIN SODIUM/DEXTROSE 25,000 UNITS/500 ML BAG IV SCH ×3 (04:50→23:43)
[2021-05-09] MEDS: TUBE FEEDING WATER FLUSH GT SCH ×3 (04:51→08:49)
[2021-05-09] MEDS: VASOPRESSIN 20 UNITS in 0.9 % SODIUM CHLORIDE 100 ML IV SCH (04:51)
[2021-05-09 05:03] LABS: Hematocrit (blood only) 37.3 % (42-52); Hemoglobin 11.8 g/dL (14.0-18.0); Mean Corpuscular Hemoglobin 30.7 pg (25-34); Mean Corpuscular Hgb Conc 31.6 g/dL (32-36); Mean Corpuscular Volume 97.1 fL (80-100); Mean Platelet Volume 11.4 fL (7.4-10.4); Nucleated RBC # (auto) 0.03 K/uL (0-0); Nucleated RBC % (auto) 0.3 %; Platelet Count 150 K/uL (130-400); RDW Coefficient of Variation 15.8 % (11.5-14.5); RDW Standard Deviation 54.9 fL (36.4-46.3); Red Blood Count 3.84 M/uL (4.7-6.1); White Blood Count 9.96 K/uL (4.8-10.8)
[2021-05-09 05:28] LABS: Partial Thromboplastin Ratio 3.1
[2021-05-09 05:29] LABS: Basophils # (auto) 0.01 K/uL (0-0.2); Basophils % (auto) 0.1 %; Dohle Bodies 1+; Eosinophils # (auto) 0.01 K/uL (0-0.5); Eosinophils % (auto) 0.1 %; Immature Granulocytes # (auto) 0.06 K/uL (0.00-0.02); Immature Granulocytes % (auto) 0.6 %; Lymphocytes # (auto) 1.01 K/uL (1.2-3.4); Lymphocytes % (auto) 10.1 %; Monocytes # (auto) 0.83 K/uL (0.11-0.59); Monocytes % (auto) 8.3 %; Neutrophils # (auto) 8.04 K/uL (1.4-6.5); Neutrophils % (auto) 80.8 %; Polychromasia 1+
[2021-05-09 05:35] LABS: BUN Creatinine Ratio 44.1 (10-20); Creatinine Clr Calc Pharmacy 43.2 ml/min; Est GFR (African American) 32.1 ml/min; Est GFR (Non-African American) 27.7 ml/min; Magnesium 2.4 mg/dl (1.7-2.4); Potassium 5.1 mmol/L (3.5-5.1)
[2021-05-09 05:53] LABS: Partial Thromboplastin Time 81.2 Seconds (21.0-31.0)
--- NOTE | 2021-05-09 07:19 | CT Scan Report ---
CT SCAN OF THE BRAIN WITHOUT IV CONTRAST CLINICAL HISTORY: Encephalopathy. COMPARISON STUDY: CT of the brain dated 05/03/2021. TECHNIQUE: Unenhanced axial CT scan of the brain is performed from the vertex to the skull base. A d ose lowering technique was utilized adhering to the principles of ALARA. FINDINGS: Brain parenchyma: There is minimal microangiopathic disease. There is no hemorrhage, mass effect, or evidence of acute territorial ischemia by CT criteria. Acevedo-white matter differentiation is preserved . No extra-axial fluid collection is seen. Ventricles, sulci, cisterns: Normal in configuration. Intracranial vasculature: The visualized intracranial vasculature at the skull base is normal in appe arance. Calvarium: Unremarkable. Sinuses and mastoids: There is subtotal opacification of the right maxillary antrum and a right poste rior ethmoid sinus. Moderate to advanced mucosal thickening and secretions are present within the sph enoid sinuses. Moderate mucosal thickening is noted in the left frontal sinus and the left anterior e thmoid sinuses. There are large bilateral mastoid effusions. Orbits: The bony orbits are grossly intact. IMPRESSION: 1. There is no hemorrhage, mass effect, or evidence of acute territorial ischemia by CT criteria. 2. Paranasal sinus disease as above. 2. Large mastoid effusions. ACT 112: Negative or not required by law. Electronically signed by: Brady Cam M.D. 05/09/2021 7:18 AM
--- NOTE | 2021-05-09 08:22 | CT Scan Report ---
CT chest diagnostic wo con CLINICAL HISTORY: Patient on ventilator. Follow-up airspace opacities and left pleural effusion COMPARISON STUDY: CT from 05/03/2021 and portable chest from 05/08/2021 CT DOSE: TECHNIQUE: Standard CT of the Chest was performed without IV contrast. A dose lowering technique was utilized adhering to the principles of ALARA. FINDINGS: Airway: The airway is clear. No endobronchial lesion is identified. Tracheostomy tube is in place. Lungs: Compared to the previous CT, there has been interval improvement of bilateral interstitial, gr oundglass and alveolar opacities. There is evidence for underlying emphysematous changes present part icularly involving the upper lobes. There is mild bibasilar atelectasis. Pleura: There is no evidence for left pleural effusion is suspected radiographically. There is no helga dence for pneumothorax. Mediastinum: There is no evidence for pathologic adenopathy on these limited noncontrast images. Ther e has been almost complete resolution of previously identified pneumomediastinum. The heart is again enlarged. The thoracic aorta is within normal limits. There is no evidence for pericardial effusion. Upper abdomen: The adrenal glands are normal bilaterally. Enteric tube is in place within the stomach . Osseous structures: There is no acute osseous pathology. Degenerative changes are seen within the tho racic spine. IMPRESSION: 1. Compared to the previous CT examination, there has been interval improvement in interstitial, grou ndglass and alveolar opacities bilaterally. 2. Findings are most prominent at the lung bases bilaterally with by basilar atelectasis. 3. There is no evidence for left pleural effusion is suspected radiographically. 4. Almost complete resolution of previously identified pneumomediastinum. ACT 112: Negative or not required by law. Electronically signed by: Valdo Marina M.D. 05/09/2021 8:21 AM
--- NOTE | 2021-05-09 08:37 | CT Scan Report ---
CT SCAN OF THE ABDOMEN AND PELVIS WITHOUT IV CONTRAST CLINICAL HISTORY: Infection. Pneumonia. COMPARISON STUDY: Abdominal CT dated 04/30/2020. TECHNIQUE: CT scan of the abdomen and pelvis is performed from the lung bases to the proximal femora. Images are reviewed in the axial, sagittal, and coronal planes. IV contrast was not administered for this examination. Note that the examination was performed in significantly suboptimal fashion withou t oral and IV contrast. There is also motion artifact, and streak artifact from the arms which could not be elevated above the abdomen. A dose lowering technique was utilized adhering to the principles of ALARA. CT DOSE: 3964.04 mGy.cm FINDINGS: Lung bases: The heart is normal in size and without pericardial effusion. Trace pleural effusions are noted. Mosaic attenuation is seen throughout both lung. There is dependent airspace consolidation. E dematous change is noted. There is mild lower lobe bronchiectasis. Liver: The unenhanced liver is normal in size, contour, and attenuation. There is no intrahepatic silvano iary ductal dilatation. Gallbladder: Unremarkable. Spleen: Normal in size and attenuation. Pancreas: The unenhanced pancreas is atrophic and grossly unremarkable. Adrenal glands: Unremarkable. Kidneys: The unenhanced kidneys demonstrate mild cortical atrophy and are without hydronephrosis. The re are no renal calculi identified. There is no evidence of contour deforming renal mass lesion. Abdominal vasculature: The abdominal aorta is normal in course and caliber. Stomach and bowel: There is a tiny hiatal hernia. An enteric tube terminates in the mid to distal sto mach. The duodenum fails to cross midline, likely representing a form of malrotation. A rectal temper ature probe is in place. There is rectosigmoid fecal retention. The right colon is distended, and david led with both gas and liquid stool. The right colon measures up to 8.5 cm in diameter. There are dist ended and fluid-filled loops of distal small bowel which measure up to 4 cm in diameter. Several of t hese demonstrate interloop fluid, and there are mildly thick-walled loops suggested in the right lowe r quadrant. No discrete transition point or high-grade obstruction is identified. Tiny foci of periph eral gas in the right colon favor stool contents. Pneumatosis is considered less likely. The appendix is not clearly visualized. Peritoneum: There is trace perihepatic and perisplenic ascites. No intraperitoneal free air is identi fied. There is a ventral surgical scar with diastases of the rectus vasculature. There is heterotopic ossification of the anterior abdominal wall. Lymphadenopathy: None. Pelvic viscera: The bladder is decompressed around a Montes catheter and not well evaluated. The prost ate gland is diminutive. The seminal vesicles are normal as imaged. Skeletal structures: No lytic or blastic lesions are seen. Spondylotic and postoperative change is no kashif in the lumbar spine. A large heterotopic ossification extends from the anterior left acetabulum t o the left sacrum. Soft tissues: There is mild body wall edema. IMPRESSION: 1. Significantly suboptimal examination without oral and IV contrast. There is also streak and motion artifact. 2. The colon is distended, and filled with both gas and liquid stool. There are also distended and fl uid-filled loops of small bowel in the pelvis with associated interloop fluid. Several small bowel lo ops appear mildly thick-walled. The appearance favors ileus of the small bowel and colon, with possib le superimposed enterocolitis. Clinical correlation will be essential. 3. There is no transition point identified or evidence of high-grade obstruction. Low-grade or develo ping bowel obstruction is considered less likely. 4. Tiny foci of peripheral gas in the right colon are likely related to intraluminal contents. Pneuma tosis is considered less likely. Again, clinical correlation will required. 5. No intraperitoneal free air is identified. 6. Dense airspace consolidation is seen at the lung bases with trace pleural effusions. 7. Trace perihepatic and perisplenic ascites. 8. Additional findings as above. ACT 112: Negative or not required by law. Electronically signed by: Brady Cam M.D. 05/09/2021 8:35 AM
[2021-05-09] MEDS: clonazePAM 1 MG TAB PO SCH (08:49)
[2021-05-09] MEDS: LANSOPRAZOLE 30 MG SOLTAB NG SCH (08:50)
[2021-05-09] MEDS: LACTULOSE SYRUP 20 GM/30 ML UDC PO SCH ×3 (08:50→19:58)
[2021-05-09] MEDS: DOCUSATE SODIUM/SENNA 50/8.6MG TAB PO SCH ×2 (08:50→19:58)
[2021-05-09] MEDS: POLYETHYLENE (MIRALAX) 17 GM PACK PO SCH ×2 (08:51→19:58)
[2021-05-09] MEDS: oxyCODONE HCL IR 5 MG TAB (IMMEDIATE RELEASE) PO SCH (08:51)
[2021-05-09] MEDS: PATIROMER CALCIUM SORBITEX 8.4 GM PACK PO SCH (08:52)
[2021-05-09] MEDS: INSULIN GLARGINE SOLOSTAR 100 UNITS/ML 3 ML PEN SC SCH ×2 (09:06→20:31)
--- NOTE | 2021-05-09 09:16 | XRay Report ---
XR chest 1V portable CLINICAL HISTORY: Resp failure. Follow-up interstitial and alveolar opacities COMPARISON STUDY: Portable chest from 05/08/[address] chest from 05/08/2021 TECHNIQUE: 1 view of the chest FINDINGS: Single frontal view of the chest demonstrates the heart to again be mildly enlarged. Tubes and cathet ers are unchanged. Compared to the previous examination, there is increased expansion of lungs with i nterval decrease in interstitial and alveolar opacities bilaterally. There is also decreased bibasila r atelectasis. There is no evidence for pleural effusion. There is no evidence for vascular congestio n. There is no acute osseous pathology. IMPRESSION: Increased expansion of the lungs with interval decrease in interstitial and alveolar opac ities and decreased bibasilar atelectasis. ACT 112: Negative or not required by law. Electronically signed by: Valdo Marina M.D. 05/09/2021 9:14 AM
--- NOTE | 2021-05-09 10:54 | Pharmacy Report ---
Pharmacy Glycemic Short Note 2 - Date of Service May 09, 2021 - Glycemic Short BSG Results (Last 24 hours): 05/08/21 05/08/21 05/08/21 11:45 12:15 16:00 Glucose 78 POC Glucose 84 64 L* POC Glucose (other) 05/08/21 05/08/21 05/08/21 16:01 16:17 20:29 Glucose POC Glucose 68 L* 104 H POC Glucose (other) 97 05/08/21 05/09/21 05/09/21 23:27 04:11 04:38 Glucose 129 H POC Glucose POC Glucose (other) 111 H 147 H 05/09/21 09:03 Glucose POC Glucose 113 H POC Glucose (other) OUTPATIENT ANTIDIABETIC REGIMEN: * Metformin 1000 mg PO BID * Dulaglutide 3 mg SQ weekly on Thu * A1c: 9.2% (04/17/21) ASSESSMENT: 2/3 * Hypoglycemia noted x1 yesterday in the setting of TF on hold and emesis. Lantus held last night and Novolog loosened * TF continue to be on hold today. OK to resume Lantus, but at lower dose * Will also keep looser Novolog parameters /: * Patient well controlled this morning after 30 units basal and 59 units novolog. BSGs trended down at lunchtime, and TFS placed on hold. Will reduce lantus scale for this evening and loosen CR. 05/07 * Stressors stable * Many BSG's below goal for ICU status patient, but no hypoglycemia noted. Will slightly loosen CHO ratio and will slightly decrease Lantus 05/06 * Stressors stable - day 3 off of steroids. Novasource renal continues. Insulin drip transitioned off 05/04. * Increase in basal insulin required yesterday, total of 50 units administered. Will continue similar, but possibly decreased slightly based on BSG tonight as some BSG's below goal for ICU status patient * Tightening of correction factor and CHO ratio yesterday PM with good BSG's since that time. Will continue 05/04: * Patient continues on insulin drip, rate now 2.9 units/hr - I anticipate insulin needs to decrease throughout today with steroids no longer on board * Will dose conservatively with Lantus 20 units x 1 now (0.2 unit/kg) with overlap of insulin drip * Will follow drip rates today to see if we can transition off 05/02: * S/p trach 05/01. Peptamen @ goal. Weaning sedation. Norepinephrine discontinued. Dex continues - will d/c 05/03. * Insulin infusion @ stable rate; 3-4units/hr. * Plan to give Lantus 30 units X 1 today to assist with coming off of the insulin drip. Continue insulin infusion today (OK if it weans itself off). Re- evaluate basal insulin in AM. * No change to Novolog PLAN FOR INPATIENT GLYCEMIC CONTROL: * Hold outpatient diabetes medications (metformin, Trulicity) * Lantus 5-15 units SC BID depending on BSG * Bolus insulin * NovoLog Q 4 hrs to cover carbs in tube feeds * Goal range: 120-150 mg/dL * Correction factor: 15 mg/dL/unit * CHO ratio: 5 grams CHO/unit delivered in continuous tube feeds (when running) PLAN FOR DISCHARGE: * see 05/04 note
[2021-05-09] MEDS: NOREPINEPHRINE/D5W 8 MG/508 ML BAG IV SCH (12:45)
[2021-05-09 13:46] LABS: BUN Creatinine Ratio 39.4 (10-20); Calcium 7.8 mg/dl (8.5-10.1); Creatinine Clr Calc Pharmacy 35.8 ml/min; Est GFR (African American) 25.5 ml/min; Partial Thromboplastin Ratio 3.4; Potassium 4.8 mmol/L (3.5-5.1)
[2021-05-09 14:11] LABS: Partial Thromboplastin Time 89.1 Seconds (21.0-31.0)
--- NOTE | 2021-05-09 14:28 | Critical Care Progress Note ---
Date of Service May 09, 2021 Assessment & Plan (1) Acute respiratory failure with hypoxia: (2) Pneumonia due to 2019 novel coronavirus: (3) Obesity: (4) Anxiety: (5) DVT of axillary vein, acute bilateral: (6) Pneumomediastinum: (7) HTN (hypertension): (8) Constipation: Plan: Reason Critically Ill: Acute hypoxic respiratory failure secondary to COVID-19 pneumonia PLAN: Neuro: Anesthesia: Oxycodone Sedation: Clonazepam CT head 05/08/2021: Chronic microvascular changes but no acute stroke. Sinusitis seen. Resp: --Hypoxic respiratory failure secondary to multilobar COVID-19 pneumonia Patient status post percutaneous tracheostomy placement 05/02/21. ENT performed a trach revision 05/03. Continues to have a large air leak despite tracheostomy revision. CT chest 05/08/21: Diffuse opacities appreciated bilaterally, improved from before. Mild pneumomediastinum also appreciated --Pneumomediastinum --> improving No subcu emphysema Try to keep low PEEP CV: --Hypotension/shock Likely sepsis Continue with antibiotics. Unasyn changed to Zosyn to 05/08/21 Lower extremity arterial ultrasound of the right leg 05/01 without arterial occlusion or hemodynamically significant stenosis. --NSVT Continue with metoprolol We will increase the dose if need be Keep potassium around 4, magnesium greater than 2, phosphorus around 3 Fluids/Renal: --ZEN Monitor BUNs/creatinine Replace electrolytes per protocol. ID: Culture from around the trach site 05/07/2021: Growing probable Enterococcus Sputum cultures from 05/02 - thus far. Blood cultures from 04/25 with no growth. Fungal blood cultures from 04/25 with no growth as well. Pro-Tomás from 05/02 0.24 --> 0.14 on 05/04 Urine culture from 05/03 with no growth. Unasyn changed to Zosyn to 05/08/21 GI/Nutrition: Continue aggressive bowel regimen CT abdomen pelvis 05/08/21: Dilated bowel loops likely presenting ileus. No clear obstruction seen. No evidence of hematoma. Very low likelihood of pneumatosis Heme: Acute DVT s/p tpa earlier in hospital course Endocrine: ICU hyperglycemia protocol Continue insulin gtt with elevated BSG --Prophylaxis VTE: Heparin drip GI: Lansoprazole Lines: Left arm PICC 05/07/2021, trach revision 05/03, Montes replaced 05-08-21 Diet: Tube feeds on hold Plan: In/out: +2.3 L, urine output 1402 AB.31/72/134 on 60%, eight of PEEP Patient had multiple bouts of vomiting yesterday. NG to suction Hold tube feeds Potassium is a bit on the higher side we will give a dose of patiromer. Creatinine is still trending up but patient making good urine. Titrate down vasopressors to MAP of 65 Go down on clonazepam 0.5 mg twice daily, oxycodone 5 mg daily for 2 days and then stop Overall prognosis is guarded I have personally spent 36 minutes of critical care time in the direct management of this patient. This is a life/limb threatening event. This includes time spent evaluating patient, direct bedside care, chart review, placing orders, interpretation of diagnostic studies, discussion with consultants, patient, and family members, as well as other required patient management activities. This time is exclusive of all separately billable procedures, and teaching time and separate from and in addition to any other critical care service time. Admission and Anticipated Discharge Date Admission Date: April 16, 2021 Subjective Patient seen and examined at bedside. No acute distress Patient was on 0.07 of Levophed and 0.04 of vasopressin He opens his eyes to voice but does not track or follow commands Still spiking fever T-max 38.9 Is not on any sedating medications Review of Systems Review of Systems: Unobtainable due to endotracheal tube Physical Exam Physical Exam: Constitutional: No acute distress HEENT: PERRLA, positive trach Respiratory system: Decreased antibiotic, no wheeze, rhonchi, positive crackles bilaterally CVS: S1-S2 positive, no murmurs or gallops Abdomen: Soft, nontender, nondistended, decreased bowel sounds, left lower quadrant is firm likely from previous surgery Extremities: +2 pulses bilaterally radialis/ dorsalis pedis, no cyanosis, no edema Neuro: Breathing over the vent, positive pupillary, positive corneal Psych: Unable to assess G/U: Positive Montes Skin: no rashes, warm and dry Lymphatic: no cervical or axillary lymphadenopathy Results & Data Results & Data ([facility]) Vital Signs (Past 12 Hours) Vital Signs Temp Pulse Resp BP Pulse Ox 05/09/21 11:30 39.0 C H 113 H 23 102/70 94 05/09/21 11:26 39.0 C H 114 H 28 H 80/63 L 96 05/09/21 11:15 39.0 C H 115 H 24 71/55 L 94 05/09/21 11:00 39.0 C H 117 H 28 H 99/56 L 94 05/09/21 10:57 112 H 29 H 96 05/09/21 10:45 38.9 C H 113 H 25 H 87/63 L 97 05/09/21 10:30 38.9 C H 110 H 25 H 93/54 L 96 05/09/21 10:15 38.9 C H 114 H 23 87/52 L 96 05/09/21 10:00 38.9 C H 115 H 23 85/61 L 96 05/09/21 09:45 38.9 C H 117 H 27 H 90/61 L 96 05/09/21 09:30 39.0 C H 111 H 30 H 94/59 L 97 05/09/21 09:15 39.0 C H 114 H 28 H 104/65 98 05/09/21 09:00 39.0 C H 112 H 28 H 114/66 97 05/09/21 08:45 38.9 C H 111 H 28 H 92/66 L 97 05/09/21 08:30 38.9 C H 110 H 28 H 95/65 L 95 05/09/21 08:15 38.9 C H 111 H 28 H 94/65 L 96 05/09/21 08:00 38.9 C H 108 H 28 H 101/69 95 05/09/21 07:50 112 H 29 H 95 05/09/21 07:45 38.9 C H 111 H 28 H 88/59 L 97 05/09/21 07:30 38.9 C H 114 H 28 H 100/83 95 05/09/21 07:15 38.9 C H 114 H 29 H 100/69 95 05/09/21 07:00 38.9 C H 115 H 29 H 99/66 L 95 05/09/21 06:00 38.9 C H 110 H 29 H 114/65 94 05/09/21 05:45 38.9 C H 113 H 23 106/65 94 05/09/21 05:30 38.9 C H 112 H 28 H 106/63 94 05/09/21 05:15 38.9 C H 113 H 29 H 106/64 94 05/09/21 05:00 38.9 C H 113 H 24 91/69 L 93 05/09/21 04:45 39.0 C H 111 H 24 107/60 93 05/09/21 04:00 39.0 C H 115 H 28 H 107/66 97 05/09/21 03:46 117 H 29 H 99 05/09/21 03:45 39.0 C H 117 H 28 H 103/60 99 05/09/21 03:30 39.0 C H 115 H 29 H 102/55 L 99 05/09/21 03:15 39.0 C H 116 H 28 H 108/58 L 99 05/09/21 03:00 39.0 C H 115 H 28 H 96/58 L 99 05/09/21 02:45 39.0 C H 118 H 28 H 101/58 L 99 05/09/21 02:30 39.0 C H 117 H 28 H 110/80 98 Laboratory Results 05/09/21 04:38 05/09/21 13:03 Coding Level of Care Code Critical Care 1st 30-74 mins Diagnoses Acute respiratory failure with hypoxia J96.01 Pneumonia due to 2019 novel coronavirus U07.1; J12.82 Obesity E66.9 Anxiety F41.9 DVT of axillary vein, acute bilateral I82.A13 Pneumomediastinum J98.2 HTN (hypertension) I10 Constipation K59.00 Time Spent (min) 36
--- NOTE | 2021-05-09 15:04 | Hospitalist Progress Note ---
Date of Service May 09, 2021 Assessment & Plan (1) Acute respiratory failure with hypoxia: (2) Pneumonia due to 2019 novel coronavirus: Plan: 51-year-old male with PMH of DM type II, HTN, obesity, GERD, HTN, anxiety and FARNAZ on CPAP presented 04/16 for evaluation of shortness of breath. Tested positive for COVID-19 on 04/06. Patient unvaccinated. At presentation to the ED, patient required 15 L oxygen to maintain saturation. Is being managed for the following: #. Acute respiratory failure with hypoxia #. Pneumonia due to 2019 novel coronavirus #. Moderate pneumomediastinum: 05/03 CTA chest Not vaccinated against Covid, tested positive on 04/[address] ADMINISTRATOR via home test. Intubated on 04/24 for respiratory distress --> 05/01 percutaneous tracheostomy done --> 05/03 tracheostomy leak noted/failed tracheostomy exchange at bedside---> emergent reintubation 05/03---> 05/03 revision tracheostomy in OR Finished course of Rocephin --> continued to be febrile---> 05/03 Zosyn started per ICU team --> 05/06 Unasyn. Patient tracheostomy status/mechanically ventilated and sedated. Currently on fentanyl drips, MV of 450//8.0 cm/50% Patient has developed pneumomediastinum and extensive bilateral airspace opacities. Off sedation but still unconscious Septic shock Currently on levophed and vasopressin Wean pressors as appropriate Still running fevers Unasyn was changed to zosyn Blood culturs from yesterday negative so far. Culture from trach secretions growing enterococcus CT head reviewed - has paranasal sinus disease and large mastoid effusion CT chest reviewed - interval improvement in GGO and alveolar opacities, resolution of pneumomediastinum CT abd/P reviewed - suboptimal. Features suggestive of ileus Per GI: PEG placement is not favourable for him due to surgical hx, c/w Tube feed via corsef. TF currently on hold due to vomiting episodes yesterday Clonazepam and opioids been weaned per ICU team #. HTN Hypotensive as above #. ZEN Had ZEN on 04/25 to 04/27 which resolved Developed ZEN again on 05/08/21 with Cr increasing upto 3 today Likely due to hypotension Got IVF bolus Monitor. Avoid nephrotoxins #. Acute DVT BLE Status post TPA earlier in hospital course Was on therapeutic Lovenox. Now changed to heparin drip due to ZEN Disposition: ICU. computer technical specialist updated Admission and Anticipated Discharge Date Admission Date: April 16, 2021 Subjective Patient seen and examined Remains on mechanical ventilation via trach Continues to have fevers Currently on levophed and vasopressin Opened eye to touch but no tracking or following commands Review of Systems Review of Systems: Unobtainable due to endotracheal tube and Unobtainable due to reduced consciousness Physical Exam Constitutional: + mechanically ventilated; no acute distress Eyes: PERRL ENMT: Trach in situ Respiratory: On branch mechanic vent via trach Diminished breath sounds +crackles Cardiovascular: Rate/Rhythm: regular rate and regular rhythm S1 S2 Gastrointestinal (Abdomen): Left lower quadrant is firm (reported to be chronic per previous providers), other areas soft +Bowel sounds Musculoskeletal: No pedal edema Neurologic: Opened eye spontaneously to touch today. Otherwise not responsive Genitourinary: Montes in situ Results & Data Results & Data ([facility]) Vital Signs (Past 12 Hours) Vital Signs Temp Pulse Resp BP Pulse Ox 05/09/21 14:50 114 H 29 H 92 05/09/21 11:30 39.0 C H 113 H 23 102/70 94 05/09/21 11:26 39.0 C H 114 H 28 H 80/63 L 96 05/09/21 11:15 39.0 C H 115 H 24 71/55 L 94 05/09/21 11:00 39.0 C H 117 H 28 H 99/56 L 94 05/09/21 10:57 112 H 29 H 96 05/09/21 10:45 38.9 C H 113 H 25 H 87/63 L 97 05/09/21 10:30 38.9 C H 110 H 25 H 93/54 L 96 05/09/21 10:15 38.9 C H 114 H 23 87/52 L 96 05/09/21 10:00 38.9 C H 115 H 23 85/61 L 96 05/09/21 09:45 38.9 C H 117 H 27 H 90/61 L 96 05/09/21 09:30 39.0 C H 111 H 30 H 94/59 L 97 05/09/21 09:15 39.0 C H 114 H 28 H 104/65 98 05/09/21 09:00 39.0 C H 112 H 28 H 114/66 97 05/09/21 08:45 38.9 C H 111 H 28 H 92/66 L 97 05/09/21 08:30 38.9 C H 110 H 28 H 95/65 L 95 05/09/21 08:15 38.9 C H 111 H 28 H 94/65 L 96 05/09/21 08:00 38.9 C H 108 H 28 H 101/69 95 05/09/21 07:50 112 H 29 H 95 05/09/21 07:45 38.9 C H 111 H 28 H 88/59 L 97 05/09/21 07:30 38.9 C H 114 H 28 H 100/83 95 05/09/21 07:15 38.9 C H 114 H 29 H 100/69 95 05/09/21 07:00 38.9 C H 115 H 29 H 99/66 L 95 05/09/21 06:00 38.9 C H 110 H 29 H 114/65 94 05/09/21 05:45 38.9 C H 113 H 23 106/65 94 05/09/21 05:30 38.9 C H 112 H 28 H 106/63 94 05/09/21 05:15 38.9 C H 113 H 29 H 106/64 94 05/09/21 05:00 38.9 C H 113 H 24 91/69 L 93 05/09/21 04:45 39.0 C H 111 H 24 107/60 93 05/09/21 04:00 39.0 C H 115 H 28 H 107/66 97 05/09/21 03:46 117 H 29 H 99 05/09/21 03:45 39.0 C H 117 H 28 H 103/60 99 05/09/21 03:30 39.0 C H 115 H 29 H 102/55 L 99 05/09/21 03:15 39.0 C H 116 H 28 H 108/58 L 99 05/09/21 03:00 39.0 C H 115 H 28 H 96/58 L 99 Laboratory Results Abnormal lab results 05/08/21 05/08/21 05/08/21 Range/Units 16:00 16:01 16:17 RBC (4.7-6.1) M/uL Hgb (14.0-18.0) g/dL POC Hgb (14.0-18.0) g/dl Hct (42-52) % POC Hct (42-52) % MCHC (32-36) g/dL RDW Std Deviation (36.4-46.3) fL RDW Coeff of Raisa (11.5-14.5) % MPV (7.4-10.4) fL Neut # (Auto) (1.4-6.5) K/uL Lymph # (Auto) (1.2-3.4) K/uL Ogle # (Auto) (0.11-0.59) K/uL Immature Gran # (Auto) (0.00-0.02) K/uL Absolute Nucleated RBC (0-0) K/uL APTT (21.0-31.0) Seconds POC pH (7.35-7.45) POC pCO2 (35-46) mmHg POC pO2 (80-95) mmHg POC HCO3 (19-24) jordan/L POC Total CO2 (24-31) mmol/L POC Base Excess (-9-1.8) jordan/L ABG pH (Temp Correct) (7.35-7.45) ABG pCO2 (Temp Corrct (35-46) mmHg POC ABG O2 Sat (90-95) % Chloride (98-107) mmol/L Carbon Dioxide (21-32) mmol/L BUN (6-23) mg/dl Creatinine (0.6-1.4) mg/dl BUN/Creatinine Ratio (10-20) Glucose (70-99(Fasting)) mg/dl POC Glucose 64 L* 68 L* 104 H (70-99) mg/dl POC Glucose (other) (70-99) mg/dl Calcium (8.5-10.1) mg/dl Phosphorus (2.5-4.9) mg/dl 05/08/21 05/08/21 05/09/21 Range/Units 20:41 23:27 03:46 RBC (4.7-6.1) M/uL Hgb (14.0-18.0) g/dL POC Hgb 10.5 L (14.0-18.0) g/dl Hct (42-52) % POC Hct 31 L (42-52) % MCHC (32-36) g/dL RDW Std Deviation (36.4-46.3) fL RDW Coeff of Raisa (11.5-14.5) % MPV (7.4-10.4) fL Neut # (Auto) (1.4-6.5) K/uL Lymph # (Auto) (1.2-3.4) K/uL Ogle # (Auto) (0.11-0.59) K/uL Immature Gran # (Auto) (0.00-0.02) K/uL Absolute Nucleated RBC (0-0) K/uL APTT 67.3 H* (21.0-31.0) Seconds POC pH 7.31 L (7.35-7.45) POC pCO2 72 H (35-46) mmHg POC pO2 134 H (80-95) mmHg POC HCO3 37 H (19-24) jordan/L POC Total CO2 39 H (24-31) mmol/L POC Base Excess 10.0 H (-9-1.8) jordan/L ABG pH (Temp Correct) 7.284 L (7.35-7.45) ABG pCO2 (Temp Corrct 79 H (35-46) mmHg POC ABG O2 Sat 99.0 H (90-95) % Chloride (98-107) mmol/L Carbon Dioxide (21-32) mmol/L BUN (6-23) mg/dl Creatinine (0.6-1.4) mg/dl BUN/Creatinine Ratio (10-20) Glucose (70-99(Fasting)) mg/dl POC Glucose (70-99) mg/dl POC Glucose (other) 111 H (70-99) mg/dl Calcium (8.5-10.1) mg/dl Phosphorus (2.5-4.9) mg/dl 05/09/21 05/09/21 05/09/21 Range/Units 04:11 04:38 04:38 RBC 3.84 L (4.7-6.1) M/uL Hgb 11.8 L (14.0-18.0) g/dL POC Hgb (14.0-18.0) g/dl Hct 37.3 L (42-52) % POC Hct (42-52) % MCHC 31.6 L (32-36) g/dL RDW Std Deviation 54.9 H (36.4-46.3) fL RDW Coeff of Raisa 15.8 H (11.5-14.5) % MPV 11.4 H (7.4-10.4) fL Neut # (Auto) 8.04 H (1.4-6.5) K/uL Lymph # (Auto) 1.01 L (1.2-3.4) K/uL Ogle # (Auto) 0.83 H (0.11-0.59) K/uL Immature Gran # (Auto) 0.06 H (0.00-0.02) K/uL Absolute Nucleated RBC 0.03 H (0-0) K/uL APTT (21.0-31.0) Seconds POC pH (7.35-7.45) POC pCO2 (35-46) mmHg POC pO2 (80-95) mmHg POC HCO3 (19-24) jordan/L POC Total CO2 (24-31) mmol/L POC Base Excess (-9-1.8) jordan/L ABG pH (Temp Correct) (7.35-7.45) ABG pCO2 (Temp Corrct (35-46) mmHg POC ABG O2 Sat (90-95) % Chloride (98-107) mmol/L Carbon Dioxide 35 H (21-32) mmol/L BUN 112 H (6-23) mg/dl Creatinine 2.54 H D (0.6-1.4) mg/dl BUN/Creatinine Ratio 44.1 H (10-20) Glucose 129 H (70-99(Fasting)) mg/dl POC Glucose (70-99) mg/dl POC Glucose (other) 147 H (70-99) mg/dl Calcium 8.0 L (8.5-10.1) mg/dl Phosphorus 6.0 H (2.5-4.9) mg/dl 05/09/21 05/09/21 05/09/21 Range/Units 04:38 09:03 11:28 RBC (4.7-6.1) M/uL Hgb (14.0-18.0) g/dL POC Hgb (14.0-18.0) g/dl Hct (42-52) % POC Hct (42-52) % MCHC (32-36) g/dL RDW Std Deviation (36.4-46.3) fL RDW Coeff of Raisa (11.5-14.5) % MPV (7.4-10.4) fL Neut # (Auto) (1.4-6.5) K/uL Lymph # (Auto) (1.2-3.4) K/uL Ogle # (Auto) (0.11-0.59) K/uL Immature Gran # (Auto) (0.00-0.02) K/uL Absolute Nucleated RBC (0-0) K/uL APTT 81.2 H* (21.0-31.0) Seconds POC pH (7.35-7.45) POC pCO2 (35-46) mmHg POC pO2 (80-95) mmHg POC HCO3 (19-24) jordan/L POC Total CO2 (24-31) mmol/L POC Base Excess (-9-1.8) jordan/L ABG pH (Temp Correct) (7.35-7.45) ABG pCO2 (Temp Corrct (35-46) mmHg POC ABG O2 Sat (90-95) % Chloride (98-107) mmol/L Carbon Dioxide (21-32) mmol/L BUN (6-23) mg/dl Creatinine (0.6-1.4) mg/dl BUN/Creatinine Ratio (10-20) Glucose (70-99(Fasting)) mg/dl POC Glucose 113 H 131 H (70-99) mg/dl POC Glucose (other) (70-99) mg/dl Calcium (8.5-10.1) mg/dl Phosphorus (2.5-4.9) mg/dl 05/09/21 05/09/21 Range/Units 13:03 13:03 RBC (4.7-6.1) M/uL Hgb (14.0-18.0) g/dL POC Hgb (14.0-18.0) g/dl Hct (42-52) % POC Hct (42-52) % MCHC (32-36) g/dL RDW Std Deviation (36.4-46.3) fL RDW Coeff of Raisa (11.5-14.5) % MPV (7.4-10.4) fL Neut # (Auto) (1.4-6.5) K/uL Lymph # (Auto) (1.2-3.4) K/uL Ogle # (Auto) (0.11-0.59) K/uL Immature Gran # (Auto) (0.00-0.02) K/uL Absolute Nucleated RBC (0-0) K/uL APTT 89.1 H* (21.0-31.0) Seconds POC pH (7.35-7.45) POC pCO2 (35-46) mmHg POC pO2 (80-95) mmHg POC HCO3 (19-24) jordan/L POC Total CO2 (24-31) mmol/L POC Base Excess (-9-1.8) jordan/L ABG pH (Temp Correct) (7.35-7.45) ABG pCO2 (Temp Corrct (35-46) mmHg POC ABG O2 Sat (90-95) % Chloride 97 L (98-107) mmol/L Carbon Dioxide 34 H (21-32) mmol/L BUN 121 H (6-23) mg/dl Creatinine 3.07 H D (0.6-1.4) mg/dl BUN/Creatinine Ratio 39.4 H (10-20) Glucose 194 H (70-99(Fasting)) mg/dl POC Glucose (70-99) mg/dl POC Glucose (other) (70-99) mg/dl Calcium 7.8 L (8.5-10.1) mg/dl Phosphorus (2.5-4.9) mg/dl
[2021-05-09] MEDS: D5W AND 1/2NSS 1,000 ML IV SCH (18:13)
[2021-05-09] MEDS: clonazePAM 0.5 MG TAB PO SCH (20:11)
[2021-05-09 21:11] LABS: Partial Thromboplastin Ratio 2.1
[2021-05-09 21:20] LABS: Partial Thromboplastin Time 54.6 Seconds (21.0-31.0)
[2021-05-10] MEDS: INSULIN ASPART PER UNIT SC SCH ×6 (00:32→20:56)
[2021-05-10] MEDS: NOREPINEPHRINE/D5W 8 MG/508 ML BAG IV SCH ×4 (01:30→14:10)
[2021-05-10] MEDS: PIPERACILLIN/TAZOBACTAM 4.5 GM in DEXTROSE 5% 100 ML IV SCH ×2 (01:30→11:23)
[2021-05-10] MEDS: D5W AND 1/2NSS 1,000 ML IV SCH (03:45)
[2021-05-10 04:33] LABS: iSTAT Allen Test Pass; iSTAT Art Bld Gas pCO2 Correct 61 mmHg (35-46); iSTAT Art Bld Gas pH Corrected 7.352 (7.35-7.45); iSTAT Arterial Blood Gas HCO3 33 meg/L (19-24); iSTAT Arterial Blood Gas pCO2 57 mmHg (35-46); iSTAT Arterial Blood Gas pH 7.37 (7.35-7.45); iSTAT Arterial Blood Gas pO2 84 mmHg (80-95); iSTAT Arterial Blood Gas pO2 C 92; iSTAT Carbon Dioxide 35 mmol/L (24-31); iSTAT FiO2 40 %; iSTAT Hematocrit 27 % (42-52); iSTAT Hemoglobin 9.2 g/dl (14.0-18.0); iSTAT Potassium 4.1 mmol/L (3.3-5.0); iSTAT Site L Radial; iSTAT Sodium 137 mmol/L (135-144)
[2021-05-10 04:59] LABS: Eosinophils # (auto) 0.03 K/uL (0-0.5); Eosinophils % (auto) 0.3 %; Hemoglobin 9.9 g/dL (14.0-18.0); Immature Granulocytes # (auto) 0.03 K/uL (0.00-0.02); Immature Granulocytes % (auto) 0.3 %; Lymphocytes # (auto) 1.47 K/uL (1.2-3.4); Lymphocytes % (auto) 14.1 %; Mean Corpuscular Hemoglobin 29.4 pg (25-34); Mean Corpuscular Hgb Conc 30.9 g/dL (32-36); Monocytes # (auto) 0.21 K/uL (0.11-0.59); Neutrophils # (auto) 8.67 K/uL (1.4-6.5); Neutrophils % (auto) 83.3 %; Nucleated RBC # (auto) 0.04 K/uL (0-0); Nucleated RBC % (auto) 0.4 %; Platelet Count 137 K/uL (130-400); RDW Coefficient of Variation 15.9 % (11.5-14.5); RDW Standard Deviation 54.5 fL (36.4-46.3); Red Blood Count 3.37 M/uL (4.7-6.1); White Blood Count 10.41 K/uL (4.8-10.8)
[2021-05-10 05:27] LABS: Partial Thromboplastin Ratio 1.7
[2021-05-10 05:29] LABS: BUN Creatinine Ratio 36.5 (10-20); Calcium 7.6 mg/dl (8.5-10.1); Creatinine Clr Calc Pharmacy 28.4 ml/min; Est GFR (African American) 19.4 ml/min; Est GFR (Non-African American) 16.7 ml/min; Magnesium 2.4 mg/dl (1.7-2.4); Potassium 4.3 mmol/L (3.5-5.1)
[2021-05-10 05:37] LABS: Partial Thromboplastin Time 45.8 Seconds (21.0-31.0)
--- NOTE | 2021-05-10 07:10 | XRay Report ---
XR chest 1V portable HISTORY: 51 years-old Male f/u follow-up study in a patient with acute respiratory failure COMPARISON: Chest radiograph 05/09/19992009, chest CT 05/08/2021 TECHNIQUE: Semierect AP view of the chest FINDINGS: Cardiac silhouette is enlarged. Enteric tube courses below the diaphragm with distal tip outside the [id number]. Left-sided PICC distal tip overlies the right atrium. Tracheostomy cannula overlies th e midline. Trace pneumomediastinum redemonstrated. No pneumothorax, large pleural effusion. Diffuse r eticular interstitial coarsening with patchy bibasilar predominate airspace opacities are redemonstra kashif. The bibasilar opacities have slightly progressed. Degenerative changes of the shoulders and spin e. IMPRESSION: 1. Lines and tubes as above. 2. Diffuse reticular interstitial coarsening redemonstrated with mildly progressed bibasilar consolid ation. 3. Trace pneumomediastinum redemonstrated. No pneumothorax identified. ACT 112: Negative or not required by law. The above report was generated using voice recognition software. It may contain grammatical, syntax o r spelling errors. Electronically signed by: Genaro Pizarro M.D. 05/10/2021 7:09 AM
[2021-05-10] MEDS: INSULIN GLARGINE SOLOSTAR 100 UNITS/ML 3 ML PEN SC SCH ×2 (08:29→20:53)
[2021-05-10] MEDS ORDERED: D5W AND 1/2NSS 1,000 ML IV SCH (09:45)
[2021-05-10] MEDS: DOCUSATE SODIUM/SENNA 50/8.6MG TAB PO SCH ×2 (09:55→20:52)
[2021-05-10] MEDS: LACTULOSE SYRUP 20 GM/30 ML UDC PO SCH (09:55)
[2021-05-10] MEDS ORDERED: VANCOMYCIN CONSULT ACTIVE PRN (10:01)
[2021-05-10] MEDS ORDERED: VANCOMYCIN HCL 2,250 MG in SODIUM CHLORIDE 0.9% 500 ML IV STA (10:02)
[2021-05-10] MEDS: POLYETHYLENE (MIRALAX) 17 GM PACK PO SCH ×2 (10:23→20:53)
[2021-05-10] MEDS: clonazePAM 0.5 MG TAB PO SCH ×2 (10:23→20:50)
[2021-05-10] MEDS: LANSOPRAZOLE 30 MG SOLTAB NG SCH (10:23)
[2021-05-10] MEDS: oxyCODONE HCL IR 5 MG TAB (IMMEDIATE RELEASE) PO SCH (10:23)
--- NOTE | 2021-05-10 11:22 | Pharmacy Report ---
Pharmacy Abx Dose Short Note - Date of Service May 10, 2021 - Assessment & Plan Assessment 51 year old M receiving Vancomycin for treatment of Enterococcus faecium growing in trach site Day # 1 of antimicrobial therapy. Plan Vancomycin * Switch to Vancomycin from empiric zosyn due to micro showing resistance to first line therapy of Ampicillin * Received loading dose of 2250mg at 1030 * 20.4mg/kg dose. Patient 110kg with a BMI of 32.9 * Patient in ZEN with Scr of 3.86, continue to monitor with AM labs for changes * Will obtain random vancomycin level with AM labs 2/5 to help guide subsequent dosing. * Will likely require 1000mg Q24h Pharmacy will continue to follow and will adjust dose/frequency as necessary. Thank you.
--- NOTE | 2021-05-10 11:28 | Pharmacy Report ---
Pharmacy Glycemic Short Note 2 - Date of Service May 10, 2021 - Glycemic Short BSG Results (Last 24 hours): 05/09/21 05/09/21 05/09/21 11:28 13:03 16:10 Glucose 194 H POC Glucose 131 H 156 H POC Glucose (other) 05/09/21 05/10/21 05/10/21 20:18 00:27 03:58 Glucose POC Glucose POC Glucose (other) 260 H 277 H 227 H 05/10/21 05/10/21 04:47 08:05 Glucose 223 H POC Glucose 190 H POC Glucose (other) OUTPATIENT ANTIDIABETIC REGIMEN: * Metformin 1000 mg PO BID * Dulaglutide 3 mg SQ weekly on Thu * A1c: 9.2% (04/17/21) ASSESSMENT: 05/10 * Patient remains critically ill - goal BSG 140-180 mg/dL * BSG's increased yesterday above goal, likely 2nd reduced dose of Lantus in PM on 05/08 and AM on 05/09. Lantus increased last night and again this AM, back to previous regimen. Although this regimen may have contributed to hypoglycemia on 05/08, D5 fluids are infusing at this time * Will tighten correction factor as it was insufficient yesterday to manage BSG's 05/09 * Hypoglycemia noted x1 yesterday in the setting of TF on hold and emesis. Lantus held last night and Novolog loosened * TF continue to be on hold today. OK to resume Lantus, but at lower dose * Will also keep looser Novolog parameters 05/08: * Patient well controlled this morning after 30 units basal and 59 units novolog. BSGs trended down at lunchtime, and TFS placed on hold. Will reduce lantus scale for this evening and loosen CR. 05/07 * Stressors stable * Many BSG's below goal for ICU status patient, but no hypoglycemia noted. Will slightly loosen CHO ratio and will slightly decrease Lantus PLAN FOR INPATIENT GLYCEMIC CONTROL: * Hold outpatient diabetes medications (metformin, Trulicity) * Lantus 10-15 units SC BID depending on BSG * Bolus insulin * NovoLog Q 4 hrs to cover carbs in tube feeds * Goal range: 120-150 mg/dL (in *order* which helps to keep BSG's in actual target range of 140-180 mg/dL) * Correction factor: 12 mg/dL/unit * CHO ratio: 4 grams CHO/unit delivered in continuous tube feeds (when running) PLAN FOR DISCHARGE: * see 05/04 note
--- NOTE | 2021-05-10 11:36 | Critical Care Progress Note ---
Date of Service May 10, 2021 Assessment & Plan (1) Acute respiratory failure with hypoxia: (2) Pneumonia due to 2019 novel coronavirus: (3) Obesity: (4) Anxiety: (5) DVT of axillary vein, acute bilateral: (6) Pneumomediastinum: (7) HTN (hypertension): (8) Constipation: Plan: Reason Critically Ill: Acute hypoxic respiratory failure secondary to COVID-19 pneumonia PLAN: Neuro: Anesthesia: Oxycodone Sedation: Clonazepam CT head 05/08/2021: Chronic microvascular changes but no acute stroke. Sinusitis seen. Resp: --Hypoxic respiratory failure secondary to multilobar COVID-19 pneumonia Patient status post percutaneous tracheostomy placement 05/02/21. ENT performed a trach revision 05/03. Continues to have a large air leak despite tracheostomy revision. CT chest 05/08/21: Diffuse opacities appreciated bilaterally, improved from before. Mild pneumomediastinum also appreciated --Pneumomediastinum --> improving No subcu emphysema Try to keep low PEEP CV: --Hypotension/shock Likely sepsis Continue with antibiotics. Lower extremity arterial ultrasound of the right leg 05/01 without arterial occlusion or hemodynamically significant stenosis. --NSVT Continue with metoprolol We will increase the dose if need be Keep potassium around 4, magnesium greater than 2, phosphorus around 3 Fluids/Renal: --ZEN Creatinine worsening Monitor BUNs/creatinine Replace electrolytes per protocol. ID: Culture from around the trach site 05/07/2021: Enterococcus faecium resistant to penicillin. Sensitive to vancomycin started 05/10/2021 Sputum cultures from 05/02 - thus far. Blood cultures from 04/25 with no growth. Fungal blood cultures from 04/25 with no growth as well. Pro-Tomás from 05/02 0.24 --> 0.14 on 05/04 Urine culture from 05/03 with no growth. Unasyn changed to Zosyn to 05/08/21 and completed total course of 7 days for sinusitis GI/Nutrition: Continue aggressive bowel regimen CT abdomen pelvis 05/08/21: Dilated bowel loops likely presenting ileus. No clear obstruction seen. No evidence of hematoma. Very low likelihood of pneumatosis Heme: Acute DVT s/p tpa earlier in hospital course Endocrine: ICU hyperglycemia protocol Continue insulin gtt with elevated BSG --Prophylaxis VTE: Heparin drip GI: Lansoprazole Lines: Left arm PICC 05/07/2021, trach revision 05/03, Montes replaced 05-08-21 Diet: Tube feeds to be resumed today at a low rate Plan: In/out: +1.8 L, urine output 1087 Unfortunately patient's creatinine is still going up. We will continue with D5 half NS at 80 mL an hour for 1 L and reassess. No indication for dialysis currently DC patiromer after today's dose. Vancomycin to be started for Enterococcus faecalis growing from the trach site. Small drop in hemoglobin. We will repeat H&H today I have personally spent 37 minutes of critical care time in the direct management of this patient. This is a life/limb threatening event. This includes time spent evaluating patient, direct bedside care, chart review, placing orders, interpretation of diagnostic studies, discussion with consultants, patient, and family members, as well as other required patient management activities. This time is exclusive of all separately billable procedures, and teaching time and separate from and in addition to any other critical care service time. Admission and Anticipated Discharge Date Admission Date: April 16, 2021 Subjective Patient seen and examined at bedside. No acute distress. Patient does open his eyes all to his name. He does not follow any commands Was on 0.09 of nor epi at the time of examination Was saturating 93-94% on 45% FiO2. His fevers have been breaking. Review of Systems Review of Systems: Unobtainable due to endotracheal tube and Unobtainable due to reduced consciousness Physical Exam Physical Exam: Constitutional: No acute distress HEENT: PERRLA, positive trach Respiratory system: Decreased antibiotic, no wheeze, rhonchi, positive crackles bilaterally CVS: S1-S2 positive, no murmurs or gallops Abdomen: Soft, nontender, nondistended, decreased bowel sounds, left lower quadrant is firm likely from previous surgery Extremities: +2 pulses bilaterally radialis/ dorsalis pedis, no cyanosis, no edema Neuro: Breathing over the vent, positive pupillary, positive corneal Psych: Unable to assess G/U: Positive Montes Skin: no rashes, warm and dry Lymphatic: no cervical or axillary lymphadenopathy Results & Data Results & Data ([facility]) Vital Signs (Past 12 Hours) Vital Signs Temp Pulse Resp BP Pulse Ox 05/10/21 09:00 38.0 C H 91 H 30 H 129/81 94 05/10/21 08:00 38.2 C H 100 H 28 H 124/79 96 05/10/21 07:00 38.3 C H 96 H 29 H 121/74 93 05/10/21 03:57 29 H 05/10/21 02:00 38.5 C H 105 H 29 H 93 05/10/21 01:00 38.6 C H 108 H 26 H 92 05/10/21 00:10 109 H 30 H 92 05/10/21 00:00 38.5 C H 105 H 28 H 93 Laboratory Results 05/10/21 04:47 05/10/21 04:47 Coding Level of Care Code Critical Care 1st 30-74 mins Diagnoses Acute respiratory failure with hypoxia J96.01 Pneumonia due to 2019 novel coronavirus U07.1; J12.82 Obesity E66.9 Anxiety F41.9 DVT of axillary vein, acute bilateral I82.A13 Pneumomediastinum J98.2 HTN (hypertension) I10 Constipation K59.00 Time Spent (min) 37
[2021-05-10 12:28] LABS: Hematocrit (blood only) 28.6 % (42-52); Hemoglobin 8.9 g/dL (14.0-18.0)
[2021-05-10] MEDS: NOVASOURCE RENAL 2.0 CAL 1000ML BAG OG SCH (13:43)
[2021-05-10] MEDS: PATIROMER CALCIUM SORBITEX 8.4 GM PACK PO SCH (13:43)
--- NOTE | 2021-05-10 13:50 | Hospitalist Progress Note ---
Date of Service May 10, 2021 Assessment & Plan (1) Acute respiratory failure with hypoxia: (2) Pneumonia due to 2019 novel coronavirus: Plan: 51-year-old male with PMH of DM type II, HTN, obesity, GERD, HTN, anxiety and FARNAZ on CPAP presented 04/16 for evaluation of shortness of breath. Tested positive for COVID-19 on 04/06. Patient unvaccinated. At presentation to the ED, patient required 15 L oxygen to maintain saturation. Is being managed for the following: #. Acute respiratory failure with hypoxia #. Pneumonia due to 2019 novel coronavirus #. 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 Intubated on 04/24 for respiratory distress --> 05/01 percutaneous tracheostomy done --> 05/03 tracheostomy leak noted/failed tracheostomy exchange at bedside---> emergent reintubation 05/03---> 05/03 revision tracheostomy in OR Patient tracheostomy status/mechanically ventilated and sedated. Patient has developed pneumomediastinum and extensive bilateral airspace opacities. Off sedation but still unconscious Septic shock Currently on levophed Culture from trach secretions grew Enterococcus faecium (resistant to penicillin) , c. albicans Blood cultures from negative so far Antibiotics changed to vancomycin. Monitor levels and dose appropriately in the setting of renal failure Per GI: PEG placement is not favourable for him due to surgical hx. TF currently on hold due to vomiting episodes yesterday Altered mental status Patient remain altered despite off sedation. CT head does not show acute CVA. Could be metabolic in view of septic shock, COVID, medications Patient had been on opioids and BZD for sometime. This could be contributing Clonazepam and opioids been weaned per ICU team #. HTN Hypotensive as above #. ZEN Had ZEN on 04/25 to 04/27 which resolved Developed ZEN again on 05/08/21 with Cr continuing to increase Likely due to hypotension Currently on IVF Monitor. Avoid nephrotoxins #. Acute DVT BLE Status post TPA earlier in hospital course Was on therapeutic Lovenox. Now changed to heparin drip due to ZEN Hb seem to have dropped today. No obvious bleeding. Monitor for now Disposition: ICU. demo specialist updated Admission and Anticipated Discharge Date Admission Date: April 16, 2021 Subjective Patient seen and examined Remains on mechanical ventilation via trach Fevers seem to be improving this morning Off vasopressin Still on levophed Review of Systems Review of Systems: Unobtainable due to endotracheal tube and Unobtainable due to reduced consciousness Physical Exam Constitutional: + mechanically ventilated; no acute distress Eyes: PERRL ENMT: NGT in situ Respiratory: On mechanical vent via trach, diminished breath sounds, +crackles Cardiovascular: Rate/Rhythm: regular rate and regular rhythm S1 S2 Gastrointestinal (Abdomen): Left lower quadrant is firm (reported to be chronic per previous providers), other areas soft +Bowel sounds Musculoskeletal: Missing right 4 and 5 finger (chronic) Neurologic: Limited exam Not responsive Genitourinary: Montes in situ Results & Data Results & Data ([facility]) Vital Signs (Past 12 Hours) Vital Signs Temp Pulse Resp BP Pulse Ox 05/10/21 12:00 37.8 C H 98 H 29 H 116/72 94 05/10/21 11:20 96 H 29 H 91 05/10/21 11:00 37.8 C H 91 H 28 H 112/72 92 05/10/21 10:00 37.9 C H 93 H 28 H 130/77 88 L 05/10/21 09:00 38.0 C H 91 H 30 H 129/81 94 05/10/21 08:00 38.2 C H 100 H 28 H 124/79 96 05/10/21 07:00 38.3 C H 96 H 29 H 121/74 93 05/10/21 03:57 29 H 05/10/21 02:00 38.5 C H 105 H 29 H 93 Laboratory Results Abnormal lab results 05/09/21 05/09/21 05/09/21 Range/Units 13:03 16:10 20:18 RBC (4.7-6.1) M/uL Hgb (14.0-18.0) g/dL POC Hgb (14.0-18.0) g/dl Hct (42-52) % POC Hct (42-52) % MCHC (32-36) g/dL RDW Std Deviation (36.4-46.3) fL RDW Coeff of Raisa (11.5-14.5) % MPV (7.4-10.4) fL Neut # (Auto) (1.4-6.5) K/uL Immature Gran # (Auto) (0.00-0.02) K/uL Absolute Nucleated RBC (0-0) K/uL APTT 89.1 H* (21.0-31.0) Seconds POC pCO2 (35-46) mmHg POC HCO3 (19-24) jordan/L POC Total CO2 (24-31) mmol/L POC Base Excess (-9-1.8) jordan/L ABG pCO2 (Temp Corrct (35-46) mmHg POC ABG O2 Sat (90-95) % Chloride (98-107) mmol/L BUN (6-23) mg/dl Creatinine (0.6-1.4) mg/dl BUN/Creatinine Ratio (10-20) Glucose (70-99(Fasting)) mg/dl POC Glucose 156 H (70-99) mg/dl POC Glucose (other) 260 H (70-99) mg/dl Calcium (8.5-10.1) mg/dl Phosphorus (2.5-4.9) mg/dl 05/09/21 05/10/21 05/10/21 Range/Units 20:39 00:27 03:58 RBC (4.7-6.1) M/uL Hgb (14.0-18.0) g/dL POC Hgb (14.0-18.0) g/dl Hct (42-52) % POC Hct (42-52) % MCHC (32-36) g/dL RDW Std Deviation (36.4-46.3) fL RDW Coeff of Raisa (11.5-14.5) % MPV (7.4-10.4) fL Neut # (Auto) (1.4-6.5) K/uL Immature Gran # (Auto) (0.00-0.02) K/uL Absolute Nucleated RBC (0-0) K/uL APTT 54.6 H* (21.0-31.0) Seconds POC pCO2 (35-46) mmHg POC HCO3 (19-24) jordan/L POC Total CO2 (24-31) mmol/L POC Base Excess (-9-1.8) jordan/L ABG pCO2 (Temp Corrct (35-46) mmHg POC ABG O2 Sat (90-95) % Chloride (98-107) mmol/L BUN (6-23) mg/dl Creatinine (0.6-1.4) mg/dl BUN/Creatinine Ratio (10-20) Glucose (70-99(Fasting)) mg/dl POC Glucose (70-99) mg/dl POC Glucose (other) 277 H 227 H (70-99) mg/dl Calcium (8.5-10.1) mg/dl Phosphorus (2.5-4.9) mg/dl 05/10/21 05/10/21 05/10/21 Range/Units 04:02 04:40 04:47 RBC 3.37 L (4.7-6.1) M/uL Hgb 9.9 L (14.0-18.0) g/dL POC Hgb 9.2 L (14.0-18.0) g/dl Hct 32.0 L (42-52) % POC Hct 27 L (42-52) % MCHC 30.9 L (32-36) g/dL RDW Std Deviation 54.5 H (36.4-46.3) fL RDW Coeff of Raisa 15.9 H (11.5-14.5) % MPV 12.0 H (7.4-10.4) fL Neut # (Auto) 8.67 H (1.4-6.5) K/uL Immature Gran # (Auto) 0.03 H (0.00-0.02) K/uL Absolute Nucleated RBC 0.04 H (0-0) K/uL APTT 45.8 H* (21.0-31.0) Seconds POC pCO2 57 H (35-46) mmHg POC HCO3 33 H (19-24) jordan/L POC Total CO2 35 H (24-31) mmol/L POC Base Excess 8.0 H (-9-1.8) jordan/L ABG pCO2 (Temp Corrct 61 H (35-46) mmHg POC ABG O2 Sat 96.0 H (90-95) % Chloride (98-107) mmol/L BUN (6-23) mg/dl Creatinine (0.6-1.4) mg/dl BUN/Creatinine Ratio (10-20) Glucose (70-99(Fasting)) mg/dl POC Glucose (70-99) mg/dl POC Glucose (other) (70-99) mg/dl Calcium (8.5-10.1) mg/dl Phosphorus (2.5-4.9) mg/dl 05/10/21 05/10/21 05/10/21 Range/Units 04:47 08:05 12:04 RBC (4.7-6.1) M/uL Hgb 8.9 L (14.0-18.0) g/dL POC Hgb (14.0-18.0) g/dl Hct 28.6 L (42-52) % POC Hct (42-52) % MCHC (32-36) g/dL RDW Std Deviation (36.4-46.3) fL RDW Coeff of Raisa (11.5-14.5) % MPV (7.4-10.4) fL Neut # (Auto) (1.4-6.5) K/uL Immature Gran # (Auto) (0.00-0.02) K/uL Absolute Nucleated RBC (0-0) K/uL APTT (21.0-31.0) Seconds POC pCO2 (35-46) mmHg POC HCO3 (19-24) jordan/L POC Total CO2 (24-31) mmol/L POC Base Excess (-9-1.8) jordan/L ABG pCO2 (Temp Corrct (35-46) mmHg POC ABG O2 Sat (90-95) % Chloride 97 L (98-107) mmol/L BUN 141 H D (6-23) mg/dl Creatinine 3.86 H D (0.6-1.4) mg/dl BUN/Creatinine Ratio 36.5 H (10-20) Glucose 223 H (70-99(Fasting)) mg/dl POC Glucose 190 H (70-99) mg/dl POC Glucose (other) (70-99) mg/dl Calcium 7.6 L (8.5-10.1) mg/dl Phosphorus 5.0 H D (2.5-4.9) mg/dl 05/10/21 Range/Units 12:20 RBC (4.7-6.1) M/uL Hgb (14.0-18.0) g/dL POC Hgb (14.0-18.0) g/dl Hct (42-52) % POC Hct (42-52) % MCHC (32-36) g/dL RDW Std Deviation (36.4-46.3) fL RDW Coeff of Raisa (11.5-14.5) % MPV (7.4-10.4) fL Neut # (Auto) (1.4-6.5) K/uL Immature Gran # (Auto) (0.00-0.02) K/uL Absolute Nucleated RBC (0-0) K/uL APTT (21.0-31.0) Seconds POC pCO2 (35-46) mmHg POC HCO3 (19-24) jordan/L POC Total CO2 (24-31) mmol/L POC Base Excess (-9-1.8) jordan/L ABG pCO2 (Temp Corrct (35-46) mmHg POC ABG O2 Sat (90-95) % Chloride (98-107) mmol/L BUN (6-23) mg/dl Creatinine (0.6-1.4) mg/dl BUN/Creatinine Ratio (10-20) Glucose (70-99(Fasting)) mg/dl POC Glucose 127 H (70-99) mg/dl POC Glucose (other) (70-99) mg/dl Calcium (8.5-10.1) mg/dl Phosphorus (2.5-4.9) mg/dl
[2021-05-11] MEDS: INSULIN ASPART PER UNIT SC SCH ×6 (00:10→20:50)
[2021-05-11 04:35] LABS: iSTAT Allen Test Pass; iSTAT Art Bld Gas pCO2 Correct 53 mmHg (35-46); iSTAT Art Bld Gas pH Corrected 7.398 (7.35-7.45); iSTAT Arterial Blood Gas HCO3 32 meg/L (19-24); iSTAT Arterial Blood Gas pCO2 52 mmHg (35-46); iSTAT Arterial Blood Gas pH 7.41 (7.35-7.45); iSTAT Arterial Blood Gas pO2 70 mmHg (80-95); iSTAT Arterial Blood Gas pO2 C 72; iSTAT Carbon Dioxide 34 mmol/L (24-31); iSTAT FiO2 35 %; iSTAT Hematocrit 23 % (42-52); iSTAT Hemoglobin 7.8 g/dl (14.0-18.0); iSTAT Potassium 3.7 mmol/L (3.3-5.0); iSTAT Site L Radial; iSTAT Sodium 138 mmol/L (135-144)
[2021-05-11 05:46] LABS: BUN Creatinine Ratio 33.4 (10-20); Calcium 7.8 mg/dl (8.5-10.1); Est GFR (African American) 17.4 ml/min; Magnesium 2.3 mg/dl (1.7-2.4); Phosphorus 4.4 mg/dl (2.5-4.9); Potassium 3.8 mmol/L (3.5-5.1)
[2021-05-11 06:27] LABS: Hematocrit (blood only) 26.9 % (42-52); Hemoglobin 8.4 g/dL (14.0-18.0); Mean Corpuscular Hemoglobin 29.5 pg (25-34); Mean Corpuscular Hgb Conc 31.2 g/dL (32-36); Mean Corpuscular Volume 94.4 fL (80-100); Platelet Count 125 K/uL (130-400); Platelet Estimate Normal (Normal); RDW Coefficient of Variation 15.7 % (11.5-14.5); RDW Standard Deviation 53.6 fL (36.4-46.3); Red Blood Count 2.85 M/uL (4.7-6.1); White Blood Count 7.74 K/uL (4.8-10.8)
--- NOTE | 2021-05-11 07:09 | XRay Report ---
SINGLE VIEW CHEST CLINICAL HISTORY: Respiratory failure. FINDINGS: 2 AP, portable, semierect chest radiographs compared to study dated 05/10/2021 and correlated with chest CT dated 05/08/2021. The examination is degraded by portable technique and patient rotation . A tracheostomy, an enteric tube, and a left PICC line are unchanged in position. The cardiomediasti nal silhouette is unremarkable. Pneumomediastinum is again noted. Extensive/multifocal airspace conso lidation is again noted. No large pleural effusion or pneumothorax is seen. The bony thorax is grossl y intact. IMPRESSION: 1. Stable lines and tubes. 2. Multifocal airspace consolidation has not appreciably changed from yesterday. 3. Trace pneumomediastinum persists. ACT 112: Negative or not required by law. Electronically signed by: Brady Cam M.D. 05/11/2021 7:08 AM
[2021-05-11] MEDS: INSULIN GLARGINE SOLOSTAR 100 UNITS/ML 3 ML PEN SC SCH ×2 (08:11→20:51)
[2021-05-11] MEDS: DOCUSATE SODIUM/SENNA 50/8.6MG TAB PO SCH ×2 (08:12→20:38)
[2021-05-11] MEDS: LANSOPRAZOLE 30 MG SOLTAB NG SCH (08:12)
[2021-05-11] MEDS: clonazePAM 0.5 MG TAB PO SCH (08:12)
[2021-05-11] MEDS: POLYETHYLENE (MIRALAX) 17 GM PACK PO SCH ×2 (08:12→20:37)
[2021-05-11] MEDS: oxyCODONE HCL IR 5 MG TAB (IMMEDIATE RELEASE) PO SCH (08:12)
[2021-05-11] MEDS ORDERED: D5W AND 1/2NSS 1,000 ML IV SCH (08:15)
--- NOTE | 2021-05-11 08:40 | Pharmacy Report ---
Pharmacy Abx Dose Short Note - Date of Service May 11, 2021 - Assessment & Plan Assessment 51 year old M receiving Vancomycin for treatment of Enterococcus faecium Day #2 of vancomycin therapy Plan Vancomycin * Patient received vancomycin load of 2250mg (20.4 mg/kg) yesterday morning. * Random level obtained today at 0445 = 17.2 mcg/mL * Scr continues to trend upwards, 2.54 --> 3.07 --> 3.86 --> 4.22 * Vancomycin to be dosed on levels in the setting of ZEN * Will give vancomycin 1000mg (~9 mg/kg) at 1100 today. Obtain random level tomorrow with AM labs to guide subsequent dosing Pharmacy will continue to follow and will adjust dose/frequency as necessary. Thank you.
[2021-05-11] MEDS: NOREPINEPHRINE/D5W 8 MG/508 ML BAG IV SCH (10:26)
--- NOTE | 2021-05-11 10:38 | Critical Care Progress Note ---
Date of Service May 11, 2021 Assessment & Plan (1) Acute respiratory failure with hypoxia: (2) Pneumonia due to 2019 novel coronavirus: (3) Obesity: (4) Anxiety: (5) DVT of axillary vein, acute bilateral: (6) Pneumomediastinum: (7) HTN (hypertension): (8) Constipation: Plan: Reason Critically Ill: Acute hypoxic respiratory failure secondary to COVID-19 pneumonia PLAN: Neuro: CT head 05/08/2021: Chronic microvascular changes but no acute stroke. Sinusitis seen. Resp: --Hypoxic respiratory failure secondary to multilobar COVID-19 pneumonia Patient status post percutaneous tracheostomy placement 05/02/21. ENT performed a trach revision 05/03. Continues to have a large air leak despite tracheostomy revision. CT chest 05/08/21: Diffuse opacities appreciated bilaterally, improved from before. Mild pneumomediastinum also appreciated --Pneumomediastinum --> improving No subcu emphysema Try to keep low PEEP CV: --S/p hypotension/shock Likely sepsis Continue with antibiotics. Off vasopressors as of 05/10/2021 Lower extremity arterial ultrasound of the right leg 05/01 without arterial occlusion or hemodynamically significant stenosis. --NSVT Only one episode. Resume metoprolol once blood pressure is stable Keep potassium around 4, magnesium greater than 2, phosphorus around 3 Fluids/Renal: --ZEN Creatinine worsening but good urine output Monitor BUNs/creatinine Replace electrolytes per protocol. ID: Culture from around the trach site 05/07/2021: Enterococcus faecium resistant to penicillin. Sensitive to vancomycin -> started 05/10/2021 Sputum cultures from 05/02 - thus far. Blood cultures from 04/25 with no growth. Fungal blood cultures from 04/25 with no growth as well. Pro-Tomás from 05/02 0.24 --> 0.14 on 05/04 Urine culture from 05/03 with no growth. Unasyn changed to Zosyn to 05/08/21 and completed total course of 7 days for sinusitis GI/Nutrition: Continue aggressive bowel regimen CT abdomen pelvis 05/08/21: Dilated bowel loops likely presenting ileus. No clear obstruction seen. No evidence of hematoma. Very low likelihood of pneumatosis Heme: Acute DVT s/p tpa earlier in hospital course --New onset thrombocytopenia Likely sepsis induced Continue to monitor Endocrine: ICU hyperglycemia protocol Continue insulin gtt with elevated BSG --Prophylaxis VTE: Heparin drip on Hold GI: Lansoprazole Lines: Left arm PICC 05/07/2021, trach revision 05/03, Montes replaced 05-08-21 Diet: Tube feeds Plan: In/out: +99 mL, urine output 2475 Chest x-ray does not show any significant change compared to yesterday. Pneumomediastinum still persist Continue with vancomycin Unfortunately patient's creatinine is still going up. But he does have good urine output Continue to hold heparin given drop in hemoglobin as well as drop in platelets Continue with pressure support during the day, ventilator/assist control at night Tomorrow trial of trach collar I have personally spent 38 minutes of critical care time in the direct management of this patient. This is a life/limb threatening event. This includes time spent evaluating patient, direct bedside care, chart review, placing orders, interpretation of diagnostic studies, discussion with consultants, patient, and family members, as well as other required patient management activities. This time is exclusive of all separately billable procedures, and teaching time and separate from and in addition to any other critical care service time. Admission and Anticipated Discharge Date Admission Date: April 16, 2021 Subjective Patient seen and examined at bedside. No acute distress, no dressings overnight Patient is waking up and following simple commands Denied any headache, no chest pain, no abdominal pain. He was on pressure support at the time of examination saturating 95% on 40% FiO2 T-max 37.6 Patient off vasopressors Review of Systems Review of Systems: All systems reviewed & are unremarkable except as noted in Subjective Physical Exam Physical Exam: Constitutional: No acute distress HEENT: PERRLA, positive trach Respiratory system: Decreased antibiotic, no wheeze, rhonchi, positive crackles bilaterally CVS: S1-S2 positive, no murmurs or gallops Abdomen: Soft, nontender, nondistended, decreased bowel sounds, left lower quadrant is firm likely from previous surgery Extremities: +2 pulses bilaterally radialis/ dorsalis pedis, no cyanosis, +1 edema bilateral lower extremity Neuro: Following simple commands Psych: Unable to assess G/U: Positive Montes Skin: no rashes, warm and dry Lymphatic: no cervical or axillary lymphadenopathy Results & Data Results & Data ([facility]) Vital Signs (Past 12 Hours) Vital Signs Temp Pulse Resp BP Pulse Ox 05/11/21 10:00 37.5 C 97 H 27 H 123/70 94 05/11/21 09:52 93 H 31 H 89 L 05/11/21 09:07 37.6 C H 93 H 22 129/75 100 05/11/21 09:00 29 H 100 05/11/21 08:00 37.6 C H 100 H 27 H 135/79 89 L 05/11/21 07:00 37.6 C H 92 H 25 H 134/83 91 05/11/21 06:00 37.5 C 89 20 123/78 92 05/11/21 05:00 37.5 C 91 H 23 125/78 94 05/11/21 04:00 37.4 C 83 24 115/73 95 05/11/21 03:03 89 31 H 94 05/11/21 03:00 37.4 C 89 30 H 128/79 92 05/11/21 02:00 37.3 C 83 31 H 109/71 94 05/11/21 01:00 37.3 C 88 21 120/72 93 05/11/21 00:00 37.4 C 93 H 23 109/74 96 05/10/21 23:22 89 31 H 97 05/10/21 23:00 37.4 C 90 29 H 117/70 97 Laboratory Results 05/11/21 04:46 05/11/21 04:46 Coding Level of Care Code Critical Care 1st 30-74 mins Diagnoses Acute respiratory failure with hypoxia J96.01 Pneumonia due to 2019 novel coronavirus U07.1; J12.82 Obesity E66.9 Anxiety F41.9 DVT of axillary vein, acute bilateral I82.A13 Pneumomediastinum J98.2 HTN (hypertension) I10 Constipation K59.00 Time Spent (min) 38
[2021-05-11] MEDS ORDERED: VANCOMYCIN HCL 1,000 MG in SODIUM CHLORIDE 0.9% 250 ML IV SCH (11:00)
--- NOTE | 2021-05-11 11:27 | Hospitalist Progress Note ---
Date of Service May 11, 2021 Assessment & Plan (1) Acute respiratory failure with hypoxia: (2) Pneumonia due to 2019 novel coronavirus: Plan: 51-year-old male with PMH of DM type II, HTN, obesity, GERD, HTN, anxiety and FARNAZ on CPAP presented 04/16 for evaluation of shortness of breath. Tested positive for COVID-19 on 04/06. Patient unvaccinated. At presentation to the ED, patient required 15 L oxygen to maintain saturation. Is being managed for the following: #. Acute respiratory failure with hypoxia #. Pneumonia due to 2019 novel coronavirus #. Moderate pneumomediastinum: 05/03 CTA chest Not vaccinated against Covid, tested positive on 04/06 [employer] via home test. Intubated on 04/24 for respiratory distress --> 05/01 percutaneous tracheostomy done --> 05/03 tracheostomy leak noted/failed tracheostomy exchange at bedside---> emergent reintubation 05/03---> 05/03 revision tracheostomy in OR Patient tracheostomy status/mechanically ventilated. Patient developed pneumomediastinum and extensive bilateral airspace opacities. Septic shock Weaned off pressors Culture from trach secretions grew Enterococcus faecium (resistant to penicillin), c. albicans Blood cultures from negative so far Currently on vancomycin. Monitor levels and dose appropriately in the setting of renal failure Altered mental status Patient remained poorly responsive off sedation. Likely multifactorial. Patient finally weaned off opioids and BZD. He is getting more responsive today CT head does not show acute CVA. Per GI: PEG placement is not favorable for him due to surgical hx. #. HTN BP stable Antihypertensives on hold #. ZEN Had ZEN on 04/25 to 04/27 which resolved Developed ZEN again on 05/08/21 with Cr continuing to increase, currently at 4.22 Likely due to hypotension Still making good urine Monitor. Avoid nephrotoxins #. Acute DVT BLE Status post TPA earlier in hospital course Was on therapeutic Lovenox. Was changed to heparin drip due to ZEN Hb dropping in the past 24h. Heparin drip on hold for now. Monitor Disposition: ICU. Updated Admission and Anticipated Discharge Date Admission Date: April 16, 2021 Subjective Patient seen and examined Fever has resolved Remains on mechanical ventilation via trach. Currently on PS Off pressors. Patient is tracking and following simple commands such as 'move your toes' Physical Exam Constitutional: + mechanically ventilated; no acute distress Eyes: PERRL, conjunctivae normal, anicteric sclerae Respiratory: On mechanical vent via trach, diminished breath sounds, +crackles Cardiovascular: Rate/Rhythm: regular rate and regular rhythm S1 S2 Gastrointestinal (Abdomen): Left lower quadrant is firm (reported to be chronic per previous providers), other areas soft +Bowel sounds Musculoskeletal: Missing right 4 and 5 finger (chronic) Neurologic: Limited exam However, patient tracks. Able to follow simple commands Genitourinary: Montes in situ Results & Data Results & Data ([facility]) Vital Signs (Past 12 Hours) Vital Signs Temp Pulse Resp BP Pulse Ox 05/11/21 11:13 104 H 29 H 92 05/11/21 10:00 37.5 C 97 H 27 H 123/70 94 05/11/21 09:52 93 H 31 H 89 L 05/11/21 09:07 37.6 C H 93 H 22 129/75 100 05/11/21 09:00 29 H 100 05/11/21 08:00 37.6 C H 100 H 27 H 135/79 89 L 05/11/21 07:00 37.6 C H 92 H 25 H 134/83 91 05/11/21 06:00 37.5 C 89 20 123/78 92 05/11/21 05:00 37.5 C 91 H 23 125/78 94 05/11/21 04:00 37.4 C 83 24 115/73 95 05/11/21 03:03 89 31 H 94 05/11/21 03:00 37.4 C 89 30 H 128/79 92 05/11/21 02:00 37.3 C 83 31 H 109/71 94 05/11/21 01:00 37.3 C 88 21 120/72 93 05/11/21 00:00 37.4 C 93 H 23 109/74 96 Laboratory Results Abnormal lab results 05/10/21 05/10/21 05/11/21 Range/Units 15:51 20:46 00:07 RBC (4.7-6.1) M/uL Hgb (14.0-18.0) g/dL POC Hgb (14.0-18.0) g/dl Hct (42-52) % POC Hct (42-52) % MCHC (32-36) g/dL RDW Std Deviation (36.4-46.3) fL RDW Coeff of Raisa (11.5-14.5) % Plt Count (130-400) K/uL MPV (7.4-10.4) fL POC pCO2 (35-46) mmHg POC pO2 (80-95) mmHg POC HCO3 (19-24) jordan/L POC Total CO2 (24-31) mmol/L POC Base Excess (-9-1.8) jordan/L ABG pCO2 (Temp Corrct (35-46) mmHg BUN (6-23) mg/dl Creatinine (0.6-1.4) mg/dl BUN/Creatinine Ratio (10-20) Glucose (70-99(Fasting)) mg/dl POC Glucose 132 H 170 H 152 H (70-99) mg/dl Calcium (8.5-10.1) mg/dl 05/11/21 05/11/21 05/11/21 Range/Units 04:21 04:46 04:46 RBC 2.85 L (4.7-6.1) M/uL Hgb 8.4 L (14.0-18.0) g/dL POC Hgb 7.8 L (14.0-18.0) g/dl Hct 26.9 L (42-52) % POC Hct 23 L (42-52) % MCHC 31.2 L (32-36) g/dL RDW Std Deviation 53.6 H (36.4-46.3) fL RDW Coeff of Raisa 15.7 H (11.5-14.5) % Plt Count 125 L (130-400) K/uL MPV 12.0 H (7.4-10.4) fL POC pCO2 52 H (35-46) mmHg POC pO2 70 L (80-95) mmHg POC HCO3 32 H (19-24) jordan/L POC Total CO2 34 H (24-31) mmol/L POC Base Excess 8.0 H (-9-1.8) jordan/L ABG pCO2 (Temp Corrct 53 H (35-46) mmHg BUN 141 H (6-23) mg/dl Creatinine 4.22 H D (0.6-1.4) mg/dl BUN/Creatinine Ratio 33.4 H (10-20) Glucose 157 H (70-99(Fasting)) mg/dl POC Glucose (70-99) mg/dl Calcium 7.8 L (8.5-10.1) mg/dl 05/11/21 05/11/21 Range/Units 07:34 11:26 RBC (4.7-6.1) M/uL Hgb (14.0-18.0) g/dL POC Hgb (14.0-18.0) g/dl Hct (42-52) % POC Hct (42-52) % MCHC (32-36) g/dL RDW Std Deviation (36.4-46.3) fL RDW Coeff of Raisa (11.5-14.5) % Plt Count (130-400) K/uL MPV (7.4-10.4) fL POC pCO2 (35-46) mmHg POC pO2 (80-95) mmHg POC HCO3 (19-24) jordan/L POC Total CO2 (24-31) mmol/L POC Base Excess (-9-1.8) jordan/L ABG pCO2 (Temp Corrct (35-46) mmHg BUN (6-23) mg/dl Creatinine (0.6-1.4) mg/dl BUN/Creatinine Ratio (10-20) Glucose (70-99(Fasting)) mg/dl POC Glucose 204 H 128 H (70-99) mg/dl Calcium (8.5-10.1) mg/dl
[2021-05-12] MEDS: INSULIN ASPART PER UNIT SC SCH ×6 (00:42→20:01)
[2021-05-12 03:50] LABS: iSTAT Allen Test Pass; iSTAT Art Bld Gas pCO2 Correct 62 mmHg (35-46); iSTAT Art Bld Gas pH Corrected 7.366 (7.35-7.45); iSTAT Arterial Blood Gas HCO3 36 meg/L (19-24); iSTAT Arterial Blood Gas pCO2 60 mmHg (35-46); iSTAT Arterial Blood Gas pH 7.38 (7.35-7.45); iSTAT Arterial Blood Gas pO2 82 mmHg (80-95); iSTAT Arterial Blood Gas pO2 C 86; iSTAT Carbon Dioxide 37 mmol/L (24-31); iSTAT FiO2 40 %; iSTAT Hematocrit 24 % (42-52); iSTAT Hemoglobin 8.2 g/dl (14.0-18.0); iSTAT Potassium 3.2 mmol/L (3.3-5.0); iSTAT Site R Radial; iSTAT Sodium 145 mmol/L (135-144)
[2021-05-12 05:00] LABS: Hematocrit (blood only) 29.1 % (42-52); Hemoglobin 9.1 g/dL (14.0-18.0); Mean Corpuscular Hemoglobin 29.8 pg (25-34); Mean Corpuscular Hgb Conc 31.3 g/dL (32-36); Mean Corpuscular Volume 95.4 fL (80-100); Mean Platelet Volume 11.3 fL (7.4-10.4); Platelet Count 140 K/uL (130-400); RDW Coefficient of Variation 15.8 % (11.5-14.5); RDW Standard Deviation 54.6 fL (36.4-46.3); Red Blood Count 3.05 M/uL (4.7-6.1); White Blood Count 7.56 K/uL (4.8-10.8)
[2021-05-12 05:20] LABS: BUN Creatinine Ratio 36.7 (10-20); Calcium 8.1 mg/dl (8.5-10.1); Creatinine Clr Calc Pharmacy 32.5 ml/min; Est GFR (Non-African American) 19.8 ml/min; Magnesium 2.4 mg/dl (1.7-2.4); Phosphorus 3.5 mg/dl (2.5-4.9); Potassium 3.3 mmol/L (3.5-5.1)
--- NOTE | 2021-05-12 08:24 | Pharmacy Report ---
Pharmacy Abx Dose Short Note - Date of Service May 12, 2021 - Assessment & Plan Assessment 51 year old M receiving Vancomycin for treatment of Enterococcus faecium Day #3 of vancomycin therapy Plan Vancomycin * Patient received vancomycin 1000mg (9 mg/kg) x1 yesterday at approximately 1130. * Random level obtained today at 0451 = 18.1 mcg/mL. Therapeutic for pulm indication. * Scr trending down overnight, 4.22 --> 3.35 * Continue to dose vancomycin based on random levels in the setting of ZEN. May consider scheduled dosing when/if renal function stabilizes. * Will give vancomycin 1000mg (~9 mg/kg) at 1300 today. Obtain random level tomorrow with AM labs to guide subsequent dosing. Pharmacy will continue to follow and will adjust dose/frequency as necessary. Thank you.
[2021-05-12] MEDS: DOCUSATE SODIUM/SENNA 50/8.6MG TAB PO SCH ×2 (08:34→20:02)
[2021-05-12] MEDS: POLYETHYLENE (MIRALAX) 17 GM PACK PO SCH ×2 (08:34→20:02)
[2021-05-12] MEDS: LANSOPRAZOLE 30 MG SOLTAB NG SCH (08:34)
--- NOTE | 2021-05-12 08:39 | Hospitalist Progress Note ---
Date of Service May 12, 2021 Assessment & Plan (1) Acute respiratory failure with hypoxia: (2) Pneumonia due to 2019 novel coronavirus: Plan: 51-year-old male with PMH of DM type II, HTN, obesity, GERD, HTN, anxiety and FARNAZ on CPAP presented 04/16 for evaluation of shortness of breath. Tested positive for COVID-19 on 04/06. Patient unvaccinated. At presentation to the ED, patient required 15 L oxygen to maintain saturation. Is being managed for the following: #. Acute respiratory failure with hypoxia #. Pneumonia due to 2019 novel coronavirus #. 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 Intubated on 04/24 for respiratory distress --> 05/01 percutaneous tracheostomy done --> 05/03 tracheostomy leak noted/failed tracheostomy exchange at bedside---> emergent reintubation 05/03---> 05/03 revision tracheostomy in OR Patient tracheostomy status/mechanically ventilated. Patient developed pneumomediastinum and extensive bilateral airspace opacities. Septic shock Weaned off pressors Culture from trach secretions grew Enterococcus faecium (resistant to penicillin), c. albicans Blood cultures from negative so far Currently on vancomycin. Monitor levels and dose appropriately in the setting of renal failure Patient was poorly responsive initially after weaned off sedation He is currently responsive CT head does not show acute CVA. Per GI: PEG placement is not favorable for him due to surgical hx. #. HTN BP stable Antihypertensives on hold #. ZEN Had ZEN on 04/25 to 04/27 which resolved Developed ZEN again on 05/08/21 with Cr peaked at 4.22, currently 3.35 today Replete hypokalemia Still making good urine Monitor. Avoid nephrotoxins #. Acute DVT BLE Status post TPA earlier in hospital course Was on therapeutic Lovenox. Was changed to heparin drip due to ZEN Heparin drip was held briefly due to drop in Hb. Resume Disposition: ICU. Admission and Anticipated Discharge Date Admission Date: April 16, 2021 Subjective Patient seen and examined Remains on mechanical ventilation via trach. Currently on PS Patient is tracking and following simple commands Limited ROS due to ventilator Physical Exam Constitutional: + mechanically ventilated; no acute distress Eyes: PERRL, conjunctivae normal, anicteric sclerae PERRL Respiratory: On mechanical vent via trach, diminished breath sounds, Cardiovascular: Rate/Rhythm: regular rate and regular rhythm S1 S2 Gastrointestinal (Abdomen): Left lower quadrant is firm (reported to be chronic per previous providers), other areas soft +Bowel sounds Neurologic: Limited exam Alert and follows simple commands Genitourinary: Montes in situ Results & Data Results & Data ([facility]) Vital Signs (Past 12 Hours) Vital Signs Temp Pulse Resp BP Pulse Ox 05/12/21 08:00 38.2 C H 106 H 35 H 154/81 H 92 05/12/21 07:39 102 H 32 H 90 05/12/21 07:00 38.0 C H 105 H 28 H 139/79 94 05/12/21 03:25 97 H 29 H 93 05/11/21 23:24 105 H 32 H 94 05/11/21 21:00 37.6 C H 105 H 29 H 94 Laboratory Results Abnormal lab results 05/11/21 05/11/21 05/12/21 Range/Units 15:32 20:44 00:37 RBC (4.7-6.1) M/uL Hgb (14.0-18.0) g/dL POC Hgb (14.0-18.0) g/dl Hct (42-52) % POC Hct (42-52) % MCHC (32-36) g/dL RDW Std Deviation (36.4-46.3) fL RDW Coeff of Raisa (11.5-14.5) % MPV (7.4-10.4) fL POC pCO2 (35-46) mmHg POC HCO3 (19-24) jordan/L POC Total CO2 (24-31) mmol/L POC Base Excess (-9-1.8) jordan/L ABG pCO2 (Temp Corrct (35-46) mmHg POC Sodium (135-144) mmol/L Sodium (136-145) mmol/L POC Potassium (3.3-5.0) mmol/L Potassium (3.5-5.1) mmol/L Carbon Dioxide (21-32) mmol/L BUN (6-23) mg/dl Creatinine (0.6-1.4) mg/dl BUN/Creatinine Ratio (10-20) Glucose (70-99(Fasting)) mg/dl POC Glucose 110 H 155 H 166 H (70-99) mg/dl Calcium (8.5-10.1) mg/dl 05/12/21 05/12/21 05/12/21 Range/Units 03:37 04:15 04:51 RBC (4.7-6.1) M/uL Hgb (14.0-18.0) g/dL POC Hgb 8.2 L (14.0-18.0) g/dl Hct (42-52) % POC Hct 24 L (42-52) % MCHC (32-36) g/dL RDW Std Deviation (36.4-46.3) fL RDW Coeff of Raisa (11.5-14.5) % MPV (7.4-10.4) fL POC pCO2 60 H (35-46) mmHg POC HCO3 36 H (19-24) jordan/L POC Total CO2 37 H (24-31) mmol/L POC Base Excess 10.0 H (-9-1.8) jordan/L ABG pCO2 (Temp Corrct 62 H (35-46) mmHg POC Sodium 145 H (135-144) mmol/L Sodium 146 H (136-145) mmol/L POC Potassium 3.2 L (3.3-5.0) mmol/L Potassium 3.3 L (3.5-5.1) mmol/L Carbon Dioxide 33 H (21-32) mmol/L BUN 123 H (6-23) mg/dl Creatinine 3.35 H D (0.6-1.4) mg/dl BUN/Creatinine Ratio 36.7 H (10-20) Glucose 146 H (70-99(Fasting)) mg/dl POC Glucose 131 H (70-99) mg/dl Calcium 8.1 L (8.5-10.1) mg/dl 05/12/21 05/12/21 05/12/21 Range/Units 04:51 08:38 11:41 RBC 3.05 L (4.7-6.1) M/uL Hgb 9.1 L (14.0-18.0) g/dL POC Hgb (14.0-18.0) g/dl Hct 29.1 L (42-52) % POC Hct (42-52) % MCHC 31.3 L (32-36) g/dL RDW Std Deviation 54.6 H (36.4-46.3) fL RDW Coeff of Raisa 15.8 H (11.5-14.5) % MPV 11.3 H (7.4-10.4) fL POC pCO2 (35-46) mmHg POC HCO3 (19-24) jordan/L POC Total CO2 (24-31) mmol/L POC Base Excess (-9-1.8) jordan/L ABG pCO2 (Temp Corrct (35-46) mmHg POC Sodium (135-144) mmol/L Sodium (136-145) mmol/L POC Potassium (3.3-5.0) mmol/L Potassium (3.5-5.1) mmol/L Carbon Dioxide (21-32) mmol/L BUN (6-23) mg/dl Creatinine (0.6-1.4) mg/dl BUN/Creatinine Ratio (10-20) Glucose (70-99(Fasting)) mg/dl POC Glucose 225 H 234 H (70-99) mg/dl Calcium (8.5-10.1) mg/dl
--- NOTE | 2021-05-12 08:47 | XRay Report ---
XR chest 1V portable CLINICAL HISTORY: Follow-up alveolar opacities.. COMPARISON STUDY: 05/11/2021 TECHNIQUE: 1 view of the chest FINDINGS: Single frontal view of the chest demonstrates the cardiomediastinal silhouette to be within normal li mits. Tubes and catheters are unchanged. Compared to previous examination, there has been interval im provement with decrease in bilateral alveolar opacities. There is minimal blunting of left costophren ic angle and small left pleural effusion cannot be excluded. There is no evidence for vascular conges tion. There is no acute osseous pathology. IMPRESSION: Interval improvement from the previous examination with decrease in bilateral alveolar op acities. Minimal blunting of left costophrenic angle characteristic of small pleural effusion. ACT 112: Negative or not required by law. Electronically signed by: Valdo Marina M.D. 05/12/2021 8:46 AM
[2021-05-12] MEDS: INSULIN GLARGINE SOLOSTAR 100 UNITS/ML 3 ML PEN SC SCH ×2 (09:05→20:01)
[2021-05-12] MEDS: ACETAMINOPHEN SUSP 325 MG/10.15 ML UDC OG PRN ×2 (09:07→12:23)
--- NOTE | 2021-05-12 09:29 | Critical Care Progress Note ---
Date of Service May 12, 2021 Assessment & Plan (1) Acute respiratory failure with hypoxia: (2) Pneumonia due to 2019 novel coronavirus: (3) Obesity: (4) Anxiety: (5) DVT of axillary vein, acute bilateral: (6) Pneumomediastinum: (7) HTN (hypertension): (8) Constipation: Plan: Reason Critically Ill: Acute hypoxic respiratory failure secondary to COVID-19 pneumonia PLAN: Neuro: not on any sedation CT head 05/08/2021: Chronic microvascular changes but no acute stroke. Sinusitis seen. Resp: --Hypoxic respiratory failure secondary to multilobar COVID-19 pneumonia Patient status post percutaneous tracheostomy placement 05/02/21. ENT performed a trach revision 05/03. Continues to have a large air leak despite tracheostomy revision. CT chest 05/08/21: Diffuse opacities appreciated bilaterally, improved from before. Mild pneumomediastinum also appreciated --Pneumomediastinum --> improving No subcu emphysema Try to keep low PEEP CV: --S/p hypotension/shock Likely sepsis Continue with antibiotics. Off vasopressors as of 05/10/2021 Lower extremity arterial ultrasound of the right leg 05/01 without arterial occlusion or hemodynamically significant stenosis. --NSVT Only one episode. Resume metoprolol once blood pressure is stable Keep potassium around 4, magnesium greater than 2, phosphorus around 3 Fluids/Renal: --ZEN Creatinine starting to improve Monitor BUNs/creatinine Replace electrolytes per protocol. ID: Culture from around the trach site 05/07/2021: Enterococcus faecium resistant to penicillin. Sensitive to vancomycin -> started 05/10/2021 Sputum cultures from 05/02 - thus far. Blood cultures from 04/25 with no growth. Fungal blood cultures from 04/25 with no growth as well. Pro-Tomás from 05/02 0.24 --> 0.14 on 05/04 Urine culture from 05/03 with no growth. Unasyn changed to Zosyn to 05/08/21 and completed total course of 7 days for sinusitis GI/Nutrition: Continue aggressive bowel regimen CT abdomen pelvis 05/08/21: Dilated bowel loops likely presenting ileus. No clear obstruction seen. No evidence of hematoma. Very low likelihood of pneumatosis Heme: Acute DVT s/p tpa earlier in hospital course --New onset thrombocytopenia Likely sepsis induced Continue to monitor Endocrine: ICU hyperglycemia protocol Continue insulin gtt with elevated BSG --Prophylaxis VTE: Heparin drip GI: Lansoprazole Lines: Left arm PICC 05/07/2021, trach revision 05/03, Montes replaced 05-08-21 Diet: Tube feeds Plan: In/out: -0, urine output 3300 Chest x-ray shows improvement in the alveolar opacities compared to yesterday. Pneumomediastinum still there T-max 38.2 Hypokalemia being replaced. We will resume heparin drip as H&H is stable. If H&H stays stable on heparin drip it can be transitioned to may be rivaroxaban For hyponatremia we will continue with D5 half NS at 80 mL an hour. Continue the vancomycin for Enterococcus faecalis around the trach site I have personally spent 35 minutes of critical care time in the direct management of this patient. This is a life/limb threatening event. This includes time spent evaluating patient, direct bedside care, chart review, placing orders, interpretation of diagnostic studies, discussion with consultants, patie nt, and family members, as well as other required patient management activities. This time is exclusive of all separately billable procedures, and teaching time and separate from and in addition to any other critical care service time. Admission and Anticipated Discharge Date Admission Date: April 16, 2021 Subjective Patient seen and examined at bedside. No acute distress, no evidence overnight Answering simple questions Following simple commands Denied any headache, no chest pain, no abdominal pain. Has been having bowel movements. T-max 38.2 Review of Systems Review of Systems: All systems reviewed & are unremarkable except as noted in Subjective Physical Exam Physical Exam: Constitutional: No acute distress HEENT: PERRLA, positive trach Respiratory system: Decreased antibiotic, no wheeze, rhonchi, positive crackles bilaterally CVS: S1-S2 positive, no murmurs or gallops Abdomen: Soft, nontender, nondistended, decreased bowel sounds, left lower quadrant is firm likely from previous surgery Extremities: +2 pulses bilaterally radialis/ dorsalis pedis, no cyanosis, +1 edema bilateral lower extremity Neuro: Following simple commands Psych: Unable to assess G/U: Positive Montes Skin: no rashes, warm and dry Lymphatic: no cervical or axillary lymphadenopathy Results & Data Results & Data ([facility]) Vital Signs (Past 12 Hours) Vital Signs Temp Pulse Resp BP Pulse Ox 05/12/21 08:00 38.2 C H 106 H 35 H 154/81 H 92 05/12/21 07:39 102 H 32 H 90 05/12/21 07:00 38.0 C H 105 H 28 H 139/79 94 05/12/21 03:25 97 H 29 H 93 05/11/21 23:24 105 H 32 H 94 Laboratory Results 05/12/21 04:51 05/12/21 04:51 Coding Level of Care Code Critical Care 1st 30-74 mins Diagnoses Acute respiratory failure with hypoxia J96.01 Pneumonia due to 2019 novel coronavirus U07.1; J12.82 Obesity E66.9 Anxiety F41.9 DVT of axillary vein, acute bilateral I82.A13 Pneumomediastinum J98.2 HTN (hypertension) I10 Constipation K59.00 Time Spent (min) 35
[2021-05-12] MEDS ORDERED: D5W AND 1/2NSS 1,000 ML IV SCH (09:30)
[2021-05-12] MEDS: POTASSIUM CHLORIDE / WTR 20 MEQ/100 ML PLCT IV SCH ×2 (11:12→12:34)
[2021-05-12] MEDS ORDERED: VANCOMYCIN HCL 1,000 MG in SODIUM CHLORIDE 0.9% 250 ML IV SCH (13:00)
[2021-05-12] MEDS: HEPARIN SODIUM/DEXTROSE 25,000 UNITS/500 ML BAG IV SCH (14:08)
[2021-05-12 14:19] LABS: Hematocrit (blood only) 30.4 % (42-52); Hemoglobin 9.2 g/dL (14.0-18.0)
--- NOTE | 2021-05-12 14:28 | Pharmacy Report ---
Pharmacy Glycemic Short Note 2 - Date of Service May 12, 2021 - Glycemic Short BSG Results (Last 24 hours): 05/11/21 05/11/21 05/12/21 15:32 20:44 00:37 Glucose POC Glucose 110 H 155 H 166 H 05/12/21 05/12/21 05/12/21 04:15 04:51 08:38 Glucose 146 H POC Glucose 131 H 225 H 05/12/21 11:41 Glucose POC Glucose 234 H OUTPATIENT ANTIDIABETIC REGIMEN: * Metformin 1000 mg PO BID * Dulaglutide 3 mg SQ weekly on Thu * A1c: 9.2% (04/17/21) ASSESSMENT: 05/12 * BSGs reasonably well-controlled yesterday * Received 45 units of insulin yesterday (20 units of Lantus and 25 units of prandial/correctional bolus) * BSGs elevated so far today > 200 mg/dL, likely related to reduced basal dose yesterday in addition to dextrose-containing IV fluids * Will plan to stick with SC basal/bolus insulin for now, but will start IV insulin infusion if BSGs continue to worsen at 1600 * Novasource renal at 40 mL/hr (29 g CHO q4h) 05/10 * Patient remains critically ill - goal BSG 140-180 mg/dL * BSG's increased yesterday above goal, likely 2nd reduced dose of Lantus in PM on 05/08 and AM on 05/09. Lantus increased last night and again this AM, back to previous regimen. Although this regimen may have contributed to hypoglycemia on 05/08, D5 fluids are infusing at this time * Will tighten correction factor as it was insufficient yesterday to manage BSG's 05/09 * Hypoglycemia noted x1 yesterday in the setting of TF on hold and emesis. Lantus held last night and Novolog loosened * TF continue to be on hold today. OK to resume Lantus, but at lower dose * Will also keep looser Novolog parameters 05/08: * Patient well controlled this morning after 30 units basal and 59 units novolog. BSGs trended down at lunchtime, and TFS placed on hold. Will reduce lantus scale for this evening and loosen CR. / * Stressors stable * Many BSG's below goal for ICU status patient, but no hypoglycemia noted. Will slightly loosen CHO ratio and will slightly decrease Lantus PLAN FOR INPATIENT GLYCEMIC CONTROL: * Hold outpatient diabetes medications (metformin, Trulicity) * Lantus 10-15 units SC BID depending on BSG * Insulin infusion if BSGs remain significantly out of range at 1600 * Bolus insulin * NovoLog Q 4 hrs to cover carbs in tube feeds * Goal range: 120-150 mg/dL (in *order* which helps to keep BSG's in actual target range of 140-180 mg/dL) * Correction factor: 12 mg/dL/unit * CHO ratio: 4 grams CHO/unit delivered in continuous tube feeds (when running) PLAN FOR DISCHARGE: * see 05/04 note
[2021-05-12 14:38] LABS: Partial Thromboplastin Ratio 0.9; Partial Thromboplastin Time 22.8 Seconds (21.0-31.0); Prothrombin Time 10.3 Seconds (9.0-12.0)
[2021-05-12 21:23] LABS: Partial Thromboplastin Time 26.2 Seconds (21.0-31.0)
[2021-05-13] MEDS: INSULIN ASPART PER UNIT SC SCH ×6 (00:11→21:33)
[2021-05-13] MEDS ORDERED: HEPARIN SOD (PORCINE) 1000 UNIT/ML IV ONE ×2 (00:34→14:08)
[2021-05-13] MEDS ORDERED: HEPARIN IV BOLUS 7,000 UNITS in SYRINGE 0 ML IV SCH (00:45)
[2021-05-13] MEDS: HEPARIN SODIUM/DEXTROSE 25,000 UNITS/500 ML BAG IV SCH ×4 (01:44→14:12)
[2021-05-13] MEDS ORDERED: INSULIN GLARGINE SOLOSTAR 100 UNITS/ML 3 ML PEN SC SCH (02:00)
[2021-05-13 06:13] LABS: Hematocrit (blood only) 29.7 % (42-52); Hemoglobin 9.2 g/dL (14.0-18.0); Mean Corpuscular Hemoglobin 30.9 pg (25-34); Mean Corpuscular Volume 99.7 fL (80-100); Mean Platelet Volume 11.4 fL (7.4-10.4); Platelet Count 161 K/uL (130-400); RDW Coefficient of Variation 16.2 % (11.5-14.5); RDW Standard Deviation 58.2 fL (36.4-46.3); Red Blood Count 2.98 M/uL (4.7-6.1); White Blood Count 6.67 K/uL (4.8-10.8)
[2021-05-13 06:24] LABS: Partial Thromboplastin Ratio 1.7; Partial Thromboplastin Time 43.5 Seconds (21.0-31.0)
[2021-05-13 06:40] LABS: BUN Creatinine Ratio 45.7 (10-20); Calcium 8.1 mg/dl (8.5-10.1); Creatinine Clr Calc Pharmacy 47.9 ml/min; Est GFR (African American) 36.2 ml/min; Est GFR (Non-African American) 31.3 ml/min; Magnesium 2.2 mg/dl (1.7-2.4); Potassium 3.1 mmol/L (3.5-5.1)
--- NOTE | 2021-05-13 07:40 | XRay Report ---
XR chest 1V portable CLINICAL HISTORY: Dyspnea TECHNIQUE: Single frontal radiograph of the chest was obtained. Comparison: Comparison is made to chest one view 05/12/2021 FINDINGS: Lines and tubes are stable. The cardiomediastinal silhouette is normal. Lungs are underinflated. Mult iple airspace opacities are seen. Prominence and indistinctness of the vasculature is noted. Faint ri ght greater than left alveolar opacities are unchanged. Possible trace bilateral pleural effusions. IMPRESSION: Mild pulmonary edema, unchanged. Stable faint right greater than left alveolar opacities. Stable poss ible trace bilateral pleural effusions. ACT 112: Negative or not required by law. Electronically signed by: Sanchez Guillen M.D. 05/13/2021 7:38 AM
[2021-05-13] MEDS: POLYETHYLENE (MIRALAX) 17 GM PACK PO SCH ×2 (08:24→21:34)
[2021-05-13] MEDS: DOCUSATE SODIUM/SENNA 50/8.6MG TAB PO SCH ×2 (08:24→21:34)
[2021-05-13] MEDS: LANSOPRAZOLE 30 MG SOLTAB NG SCH (08:25)
[2021-05-13] MEDS ORDERED: POTASSIUM CHLORIDE 20 MEQ/15 ML UDC NG STA (08:35)
[2021-05-13] MEDS: ACETAMINOPHEN SUSP 325 MG/10.15 ML UDC OG PRN ×2 (08:41→12:42)
[2021-05-13] MEDS: INSULIN GLARGINE SOLOSTAR 100 UNITS/ML 3 ML PEN SC SCH ×2 (08:41→21:36)
[2021-05-13] MEDS ORDERED: TUBE FEEDING WATER FLUSH OG SCH (10:00)
[2021-05-13] MEDS ORDERED: POTASSIUM PHOSPHATE 30 MMOL in DEXTROSE 5% 500 ML IV ONE (10:00)
--- NOTE | 2021-05-13 10:15 | Critical Care Progress Note ---
Date of Service May 13, 2021 Assessment & Plan (1) Acute respiratory failure with hypoxia: (2) Pneumonia due to 2019 novel coronavirus: (3) Obesity: (4) Anxiety: (5) DVT of axillary vein, acute bilateral: (6) Pneumomediastinum: (7) HTN (hypertension): (8) Constipation: (9) Hypernatremia: Plan: Reason Critically Ill: Acute hypoxic respiratory failure secondary to COVID-19 pneumonia PLAN: Neuro: not on any sedation. PT/OT ordered to help with profoud weakness. CT head 05/08/2021: Chronic microvascular changes but no acute stroke. Sinusitis seen. Resp: --Hypoxic respiratory failure secondary to multilobar COVID-19 pneumonia Patient status post percutaneous tracheostomy placement 05/02/21. ENT performed a trach revision 05/03. Continues to have a large air leak despite tracheostomy revision. CT chest 05/08/21: Diffuse opacities appreciated bilaterally, improved from before. Mild pneumomediastinum also appreciated --Pneumomediastinum --> improving No subcu emphysema Try to keep low PEEP CV: --S/p hypotension/shock Likely sepsis Continue with antibiotics. Off vasopressors as of 05/10/2021 Lower extremity arterial ultrasound of the right leg 05/01 without arterial occlusion or hemodynamically significant stenosis. --NSVT Only one episode. Metoprolol 12.5 BID Keep potassium around 4, magnesium greater than 2, phosphorus around 3 Fluids/Renal: --ZEN Creatinine improving Monitor BUNs/creatinine Hypernatremia --> increase free water flushes to 250 ml q4hr Recheck bmp and phosp at 2 pm after replacement ID: Culture from around the trach site 05/07/2021: Enterococcus faecium resistant to penicillin, parabacteroides, fiordaliza. Sensitive to vancomycin -> started 05/10/2021. Flagyl started 05/13/21 Sputum cultures from 05/02 - thus far. Blood cultures from 04/25 with no growth. Fungal blood cultures from 04/25 with no growth as well. Pro-Tomás from 05/02 0.24 --> 0.14 on 05/04 Urine culture from 05/03 with no growth. Unasyn changed to Zosyn to 05/08/21 and completed total course of 7 days for sinusitis GI/Nutrition: GI note from 05/18/21 reviewed indicating that PEG would be difficult in this patient given ventral mesh placement and malrotation. Continue aggressive bowel regimen CT abdomen pelvis 05/08/21: Dilated bowel loops likely presenting ileus. No clear obstruction seen. No evidence of hematoma. Very low likelihood of pneumatosis Heme: Acute DVT s/p tpa earlier in hospital course. Hgb stable --New onset thrombocytopenia --> resolved Endocrine: ICU hyperglycemia protocol Continue insulin gtt with elevated BSG --Prophylaxis VTE: Heparin drip GI: Lansoprazole Lines: Left arm PICC 05/07/2021, trach revision 05/03, Montes replaced 05-08-21 Diet: Tube feeds I have personally spent 33 minutes of critical care time in the direct management of this patient. This is a life/limb threatening event. This includes time spent evaluating patient, direct bedside care, chart review, placing orders, interpretation of diagnostic studies, discussion with consultants, patient, and family members, as well as other required patient management activities. This time is exclusive of all separately billable procedures, and teaching time and separate from and in addition to any other critical care service time. Admission and Anticipated Discharge Date Admission Date: April 16, 2021 Subjective Patient seen and examined. Following simple commands. I transitioned him from assist control ventilation to pressure support. He is tolerating this well. We will attempt tracheostomy collar trials today continues with fevers currently 38.1 C. Review of Systems Review of Systems: Unobtainable due to cognitive status Physical Exam Physical Exam: Constitutional: No acute distress HEENT: PERRLA, positive trach Respiratory system: Decreased air entry b/l, no wheeze, rhonchi, positive crackles bilaterally CVS: S1-S2 positive, no murmurs or gallops Abdomen: Soft, nontender, nondistended, decreased bowel sounds, left lower quadrant is firm likely from previous surgery Extremities: +2 pulses bilaterally radialis/ dorsalis pedis, no cyanosis, +1 edema bilateral lower extremity Neuro: Following simple commands Psych: Unable to assess G/U: Positive Montes Skin: no rashes, warm and dry Lymphatic: no cervical or axillary lymphadenopathy Results & Data Results & Data ([facility]) Vital Signs (Past 12 Hours) Vital Signs Temp Pulse Resp BP Pulse Ox 05/13/21 08:31 100 H 31 H 94 05/13/21 06:00 38.1 C H 101 H 28 H 105/68 94 05/13/21 05:00 38.1 C H 101 H 28 H 125/67 95 05/13/21 04:00 38.1 C H 103 H 31 H 119/75 94 05/13/21 03:06 99 H 32 H 94 05/13/21 03:00 38.0 C H 102 H 30 H 134/67 92 05/13/21 02:00 37.9 C H 101 H 30 H 119/70 94 05/13/21 01:00 37.9 C H 102 H 30 H 122/73 93 05/13/21 00:00 37.9 C H 100 H 26 H 112/65 94 05/12/21 23:25 99 H 31 H 94 05/12/21 23:00 37.9 C H 110 H 31 H 144/82 H 94 Coding Level of Care Code Critical Care 1st 30-74 mins Diagnoses Acute respiratory failure with hypoxia J96.01 Pneumonia due to 2019 novel coronavirus U07.1; J12.82 Obesity E66.9 Anxiety F41.9 DVT of axillary vein, acute bilateral I82.A13 Pneumomediastinum J98.2 HTN (hypertension) I10 Constipation K59.00 Hypernatremia E87.0 Time Spent (min) 33
--- NOTE | 2021-05-13 10:37 | Pharmacy Report ---
Pharmacy Abx Dose Short Note - Date of Service May 13, 2021 - Assessment & Plan Assessment * 51 year old M receiving VANCOMYCIN IV for treatment of trach site infection * Day # 4 of antimicrobial therapy; planned 7 day course minimum * Trach site cx growing: e. faecium, parabacteroides and c albicans * Metronidazole added today for anaerobic coverage * Renal fxn continues to improve (SCr 4.22 -->3.35 -->2.3); UOP >0.5mL/kg/hr Plan Vancomycin * Random level this AM = 15.6, indicating need for redosing today * 1250mg IV x 1 now * Will repeat random level w/ AM labs tomorrow. Anticipate renal fxn will improve further. May need to convert to scheduled maint dose in near future as once daily dosing may not be possible with improving clearance. * Goal AUC/GABRIEL 400-600 Pharmacy will continue to follow and will adjust dose/frequency as necessary. Thank you.
[2021-05-13] MEDS ORDERED: VANCOMYCIN HCL 1,250 MG in SODIUM CHLORIDE 0.9% 250 ML IV ONE (11:00)
--- NOTE | 2021-05-13 11:08 | Pharmacy Report ---
Pharmacy Glycemic Short Note 2 - Date of Service May 13, 2021 - Glycemic Short BSG Results (Last 24 hours): 05/12/21 05/12/21 05/12/21 11:41 15:06 19:58 Glucose POC Glucose 234 H 181 H 102 H 05/13/21 05/13/21 05/13/21 00:04 04:05 05:52 Glucose 174 H POC Glucose 152 H 191 H 05/13/21 08:31 Glucose POC Glucose 189 H OUTPATIENT ANTIDIABETIC REGIMEN: * Metformin 1000 mg PO BID * Dulaglutide 3 mg SQ weekly on Thu * A1c: 9.2% (04/17/21) ASSESSMENT: 05/13 * BSGs elevated yesterday secondary to addition of dextrose containing IVFs to treat hypernatremia * Upon discontinuation of dextrose IVFs BSGs did improve * 73 units SQ insulin given over last 24 hrs while receiving cont Novasource Renal TFs (currently @40cc/hr) as well as heparin gtt mixed in D5W * BSGs ranging 102-191 over last 24 hrs which is still acceptable. Plan to continue similar insulin doses today. 05/12 * BSGs reasonably well-controlled yesterday * Received 45 units of insulin yesterday (20 units of Lantus and 25 units of prandial/correctional bolus) * BSGs elevated so far today > 200 mg/dL, likely related to reduced basal dose yesterday in addition to dextrose-containing IV fluids * Will plan to stick with SC basal/bolus insulin for now, but will start IV insulin infusion if BSGs continue to worsen at 1600 * Novasource renal at 40 mL/hr (29 g CHO q4h) 05/10 * Patient remains critically ill - goal BSG 140-180 mg/dL * BSG's increased yesterday above goal, likely 2nd reduced dose of Lantus in PM on 05/08 and AM on 05/09. Lantus increased last night and again this AM, back to previous regimen. Although this regimen may have contributed to hypoglycemia on 05/08, D5 fluids are infusing at this time * Will tighten correction factor as it was insufficient yesterday to manage BSG's PLAN FOR INPATIENT GLYCEMIC CONTROL: * Hold outpatient diabetes medications (metformin, Trulicity) * Lantus 10-15 units SC BID depending on BSG * Bolus insulin * NovoLog Q 4 hrs to cover carbs in tube feeds * Goal range: 120-150 mg/dL (in *order* which helps to keep BSG's in actual target range of 140-180 mg/dL) * Correction factor: 12 mg/dL/unit * CHO ratio: 4 grams CHO/unit delivered in continuous tube feeds (when running) PLAN FOR DISCHARGE: * see 05/04 note
--- NOTE | 2021-05-13 11:32 | Hospitalist Progress Note ---
Date of Service May 13, 2021 Assessment & Plan (1) Acute respiratory failure with hypoxia: (2) Pneumonia due to 2019 novel coronavirus: Plan: 51-year-old male with PMH of DM type II, HTN, obesity, GERD, HTN, anxiety and FARNAZ on CPAP presented 04/16 for evaluation of shortness of breath. Tested positive for COVID-19 on 04/06. Patient unvaccinated. At presentation to the ED, patient required 15 L oxygen to maintain saturation. Is being managed for the following: #. Acute respiratory failure with hypoxia #. Pneumonia due to 2019 novel coronavirus #. Moderate pneumomediastinum: 05/03 CTA chest Not vaccinated against Covid, tested positive on 04/06 [employer] via home test. Intubated on 04/24 for respiratory distress --> 05/01 percutaneous tracheostomy done --> 05/03 tracheostomy leak noted/failed tracheostomy exchange at bedside---> emergent reintubation 05/03---> 05/03 revision tracheostomy in OR Patient tracheostomy status/mechanically ventilated. Patient developed pneumomediastinum and extensive bilateral airspace opacities. Septic shock Weaned off pressors Culture from trach secretions grew Enterococcus faecium (resistant to penicillin), parabacteroides distasonis, c. albicans Blood cultures from negative so far Currently on vancomycin. Monitor levels and dose appropriately in the setting of renal failure Flagyl added Patient was poorly responsive initially after weaned off sedation He is currently responsive with MS and interaction improving CT head does not show acute CVA. PT/OT Per GI: PEG placement is not favorable for him due to surgical hx. #. HTN BP stable Antihypertensives on hold #. ZEN Had ZEN on 04/25 to 04/27 which resolved Developed ZEN again on 05/08/21 with Cr peaked at 4.22, currently 2.3 today Replete hypokalemia Hypernatremic today. Free water flushes increased by ICU team Still making good urine Monitor. Avoid nephrotoxins #. Acute DVT BLE Status post TPA earlier in hospital course Was on therapeutic Lovenox. Was changed to heparin drip due to ZEN Disposition: ICU. Admission and Anticipated Discharge Date Admission Date: April 16, 2021 Subjective Patient seen and examined Patient is tracking and following simple commands Currently on trach collar trial during my evaluation Tries to speak but inaudible sounds.Hence ROS is limited Physical Exam Constitutional: no acute distress Weak Eyes: PERRL, conjunctivae normal, anicteric sclerae Respiratory: On trach collar trial Diminished breath sounds Cardiovascular: Rate/Rhythm: regular rate and regular rhythm S1 S2 Gastrointestinal (Abdomen): Left lower quadrant is firm (reported to be chronic per previous providers), other areas soft +Bowel sounds Musculoskeletal: Missing right 4 and 5 finger (chronic) Neurologic: Awake, alert, follows simple commands Results & Data Results & Data ([facility]) Vital Signs (Past 12 Hours) Vital Signs Temp Pulse Resp BP Pulse Ox 05/13/21 08:31 100 H 31 H 94 05/13/21 06:00 38.1 C H 101 H 28 H 105/68 94 05/13/21 05:00 38.1 C H 101 H 28 H 125/67 95 05/13/21 04:00 38.1 C H 103 H 31 H 119/75 94 05/13/21 03:06 99 H 32 H 94 05/13/21 03:00 38.0 C H 102 H 30 H 134/67 92 05/13/21 02:00 37.9 C H 101 H 30 H 119/70 94 05/13/21 01:00 37.9 C H 102 H 30 H 122/73 93 05/13/21 00:00 37.9 C H 100 H 26 H 112/65 94 Laboratory Results Abnormal lab results 05/12/21 05/12/21 05/13/21 Range/Units 15:06 19:58 00:04 RBC (4.7-6.1) M/uL Hgb (14.0-18.0) g/dL Hct (42-52) % MCHC (32-36) g/dL RDW Std Deviation (36.4-46.3) fL RDW Coeff of Raisa (11.5-14.5) % MPV (7.4-10.4) fL APTT (21.0-31.0) Seconds Sodium (136-145) mmol/L Potassium (3.5-5.1) mmol/L Chloride (98-107) mmol/L Carbon Dioxide (21-32) mmol/L BUN (6-23) mg/dl Creatinine (0.6-1.4) mg/dl BUN/Creatinine Ratio (10-20) Glucose (70-99(Fasting)) mg/dl POC Glucose 181 H 102 H 152 H (70-99) mg/dl Calcium (8.5-10.1) mg/dl Phosphorus (2.5-4.9) mg/dl 05/13/21 05/13/21 05/13/21 Range/Units 04:05 05:52 05:52 RBC 2.98 L (4.7-6.1) M/uL Hgb 9.2 L (14.0-18.0) g/dL Hct 29.7 L (42-52) % MCHC 31.0 L (32-36) g/dL RDW Std Deviation 58.2 H (36.4-46.3) fL RDW Coeff of Raisa 16.2 H (11.5-14.5) % MPV 11.4 H (7.4-10.4) fL APTT (21.0-31.0) Seconds Sodium 152 H (136-145) mmol/L Potassium 3.1 L (3.5-5.1) mmol/L Chloride 111 H (98-107) mmol/L Carbon Dioxide 38 H (21-32) mmol/L BUN 105 H (6-23) mg/dl Creatinine 2.30 H D (0.6-1.4) mg/dl BUN/Creatinine Ratio 45.7 H (10-20) Glucose 174 H (70-99(Fasting)) mg/dl POC Glucose 191 H (70-99) mg/dl Calcium 8.1 L (8.5-10.1) mg/dl Phosphorus 2.0 L D (2.5-4.9) mg/dl 05/13/21 05/13/21 05/13/21 Range/Units 05:54 08:31 12:26 RBC (4.7-6.1) M/uL Hgb (14.0-18.0) g/dL Hct (42-52) % MCHC (32-36) g/dL RDW Std Deviation (36.4-46.3) fL RDW Coeff of Raisa (11.5-14.5) % MPV (7.4-10.4) fL APTT 43.5 H 33.3 H (21.0-31.0) Seconds Sodium (136-145) mmol/L Potassium (3.5-5.1) mmol/L Chloride (98-107) mmol/L Carbon Dioxide (21-32) mmol/L BUN (6-23) mg/dl Creatinine (0.6-1.4) mg/dl BUN/Creatinine Ratio (10-20) Glucose (70-99(Fasting)) mg/dl POC Glucose 189 H (70-99) mg/dl Calcium (8.5-10.1) mg/dl Phosphorus (2.5-4.9) mg/dl 05/13/21 Range/Units 12:26 RBC (4.7-6.1) M/uL Hgb (14.0-18.0) g/dL Hct (42-52) % MCHC (32-36) g/dL RDW Std Deviation (36.4-46.3) fL RDW Coeff of Raisa (11.5-14.5) % MPV (7.4-10.4) fL APTT (21.0-31.0) Seconds Sodium (136-145) mmol/L Potassium (3.5-5.1) mmol/L Chloride (98-107) mmol/L Carbon Dioxide (21-32) mmol/L BUN (6-23) mg/dl Creatinine (0.6-1.4) mg/dl BUN/Creatinine Ratio (10-20) Glucose (70-99(Fasting)) mg/dl POC Glucose 202 H (70-99) mg/dl Calcium (8.5-10.1) mg/dl Phosphorus (2.5-4.9) mg/dl
[2021-05-13] MEDS: metroNIDAZOLE 500 MG TAB PO SCH ×2 (12:20→21:36)
[2021-05-13] MEDS: TUBE FEEDING WATER FLUSH NG SCH ×4 (12:20→22:48)
[2021-05-13 12:51] LABS: Partial Thromboplastin Ratio 1.3; Partial Thromboplastin Time 33.3 Seconds (21.0-31.0)
[2021-05-13] MEDS ORDERED: HEPARIN IV BOLUS 4,000 UNITS in SYRINGE 0 ML IV ONE (14:15)
[2021-05-13 16:51] LABS: BUN Creatinine Ratio 46.7 (10-20); Calcium 7.8 mg/dl (8.5-10.1); Creatinine Clr Calc Pharmacy 55.3 ml/min; Est GFR (African American) 43.1 ml/min; Est GFR (Non-African American) 37.2 ml/min; Potassium 3.2 mmol/L (3.5-5.1)
[2021-05-13] MEDS ORDERED: POTASSIUM CHLORIDE CRTAB 20 MEQ TABCR PO STA (20:01)
[2021-05-13 20:55] LABS: Partial Thromboplastin Ratio 1.8
[2021-05-13] MEDS ORDERED: INSULIN GLARGINE SOLOSTAR 100 UNITS/ML 3 ML PEN SC ONE (21:00)
[2021-05-13] MEDS: METOPROLOL TARTRATE 25 MG TAB PO SCH (21:35)
[2021-05-14] MEDS: INSULIN ASPART PER UNIT SC SCH ×6 (00:04→20:55)
[2021-05-14] MEDS: TUBE FEEDING WATER FLUSH NG SCH ×12 (00:06→21:47)
[2021-05-14] MEDS: HEPARIN SODIUM/DEXTROSE 25,000 UNITS/500 ML BAG IV SCH ×2 (01:58→06:37)
[2021-05-14 04:52] LABS: Partial Thromboplastin Ratio 1.6; Partial Thromboplastin Time 41.4 Seconds (21.0-31.0)
[2021-05-14 05:06] LABS: BUN Creatinine Ratio 46.9 (10-20); Calcium 7.9 mg/dl (8.5-10.1); Creatinine Clr Calc Pharmacy 61.5 ml/min; Est GFR (Non-African American) 42.3 ml/min; Phosphorus 2.3 mg/dl (2.5-4.9); Potassium 3.1 mmol/L (3.5-5.1)
[2021-05-14 05:58] LABS: Hematocrit (blood only) 31.2 % (42-52); Hemoglobin 9.2 g/dL (14.0-18.0); Mean Corpuscular Hemoglobin 29.8 pg (25-34); Mean Corpuscular Hgb Conc 29.5 g/dL (32-36); Mean Platelet Volume 11.2 fL (7.4-10.4); Nucleated RBC # (auto) 0.03 K/uL (0-0); Nucleated RBC % (auto) 0.3 %; Platelet Count 215 K/uL (130-400); RDW Coefficient of Variation 16.3 % (11.5-14.5); RDW Standard Deviation 58.4 fL (36.4-46.3); Red Blood Count 3.09 M/uL (4.7-6.1); White Blood Count 8.14 K/uL (4.8-10.8)
[2021-05-14] MEDS: NOVASOURCE RENAL 2.0 CAL 1000ML BAG OG SCH (06:34)
[2021-05-14] MEDS: metroNIDAZOLE 500 MG TAB PO SCH ×3 (06:35→21:47)
[2021-05-14] MEDS ORDERED: POTASSIUM CHLORIDE CRTAB 20 MEQ TABCR PO STA (06:45)
[2021-05-14] MEDS ORDERED: POTASSIUM PHOS 3 MMOL/1 ML INFUSION IV STA (06:45)
[2021-05-14] MEDS ORDERED: POTASSIUM PHOSPHATE 15 MMOL in DEXTROSE 5% 250 ML IV ONE (07:30)
--- NOTE | 2021-05-14 07:42 | XRay Report ---
XR chest 1V portable CLINICAL HISTORY: Follow-up suspected pulmonary edema and alveolar opacities. COMPARISON STUDY: 05/13/2021 TECHNIQUE: 1 view of the chest FINDINGS: Single frontal view of the chest demonstrates the cardiomediastinal silhouette to be within normal li mits. Tubes and catheters are unchanged. Compared to previous study, there is decreased expansion of lungs with increased prominence of the interstitial markings bilaterally, right greater than left. No confluent alveolar opacities are identified. Findings are again suspicious for vascular congestion a nd pulmonary edema. There is again blunting of left costophrenic angle characteristic of small left p leural effusion. There is no acute osseous pathology. IMPRESSION: Compared to previous examination, there is decreased expansion of lungs with increased pr ominence of the interstitial markings. The findings are again most characteristic of vascular congest ion. There is also evidence of small left pleural effusion. ACT 112: Negative or not required by law. Electronically signed by: Valdo Marina M.D. 05/14/2021 7:40 AM
[2021-05-14] MEDS ORDERED: VANCOMYCIN HCL 1,500 MG in DEXTROSE 5% 500 ML IV ONE (08:00)
[2021-05-14] MEDS: DOCUSATE SODIUM/SENNA 50/8.6MG TAB PO SCH (10:02)
[2021-05-14] MEDS: LANSOPRAZOLE 30 MG SOLTAB NG SCH (10:02)
[2021-05-14] MEDS: METOPROLOL TARTRATE 25 MG TAB PO SCH ×2 (10:03→20:53)
[2021-05-14] MEDS: POLYETHYLENE (MIRALAX) 17 GM PACK PO SCH (10:04)
[2021-05-14] MEDS: DEXTROSE 5% 1,000 ML IV SCH (10:32)
--- NOTE | 2021-05-14 10:36 | Critical Care Progress Note ---
Date of Service May 14, 2021 Assessment & Plan (1) Acute respiratory failure with hypoxia: (2) Pneumonia due to 2019 novel coronavirus: (3) Obesity: (4) Anxiety: (5) DVT of axillary vein, acute bilateral: (6) Pneumomediastinum: (7) HTN (hypertension): (8) Hypernatremia: Plan: Reason Critically Ill: Acute hypoxic respiratory failure secondary to COVID-19 pneumonia PLAN: Neuro: Following simple commands. PT/OT ordered to help with profound weakness. CT head 05/08/2021: Chronic microvascular changes but no acute stroke. Sinusitis seen. Resp: --Hypoxic respiratory failure secondary to multilobar COVID-19 pneumonia Patient status post percutaneous tracheostomy placement 05/02/21. ENT performed a trach revision 05/03. CT chest 05/08/21: Diffuse opacities appreciated bilaterally, improved from before. Mild pneumomediastinum also appreciated --Pneumomediastinum --> improving CV: On low-dose metoprolol given tachycardia. Off vasopressors Lower extremity arterial ultrasound of the right leg 05/01 without arterial occlusion or hemodynamically significant stenosis. Keep potassium around 4, magnesium greater than 2, phosphorus around 3 Fluids/Renal: --ZEN Creatinine improving Monitor BUNs/creatinine Hypernatremia --> adjusting free water flushes and starting D5W at a rate of 70 cc/h. Tube feeds will be adjusted as well. Recheck BMP 2 pm ID: Ongoing fever likely from tracheitis. Culture from around the trach site 05/07/2021: Enterococcus faecium resistant to penicillin, parabacteroides, fiordaliza. Sensitive to vancomycin -> started 05/10/2021. Flagyl started 05/13/21 C. difficile stool studies ordered. Repeat urinalysis today, blood cx and sputum cx. Procal ordered as well. Sputum cultures from 05/02 - thus far. Blood cultures from 04/25 with no growth. Fungal blood cultures from 04/25 with no growth as well. Pro-Tomás from 05/02 0.24 --> 0.14 on 05/04 Urine culture from 05/03 with no growth. Unasyn changed to Zosyn to 05/08/21 and completed total course of 7 days for sinusitis GI/Nutrition: GI note from 05/18/21 reviewed indicating that PEG would be difficult in this patient given ventral mesh placement and malrotation. We will make bowel regimen as needed given profuse diarrhea. CT abdomen pelvis 05/08/21: Dilated bowel loops likely presenting ileus. No clear obstruction seen. No evidence of hematoma. Heme: Acute DVT s/p tpa earlier in hospital course. Hgb stable --New onset thrombocytopenia --> resolved Endocrine: ICU hyperglycemia protocol Continue insulin gtt with elevated BSG --Prophylaxis VTE: Heparin drip GI: Lansoprazole Lines: Left arm PICC 05/07/2021, trach revision 05/03 Diet: Tube feeds I have personally spent 35 minutes of critical care time in the direct management of this patient. This is a life/limb threatening event. This includes time spent evaluating patient, direct bedside care, chart review, placing orders, interpretation of diagnostic studies, discussion with consultants, patient, and family members, as well as other required patient management activities. This time is exclusive of all separately billable procedures, and teaching time and separate from and in addition to any other critical care service time. Admission and Anticipated Discharge Date Admission Date: April 16, 2021 Subjective Patient seen and examined. He is following simple commands. He continues to have a fever and most recently his temperature is 38.1 C. He is having significant diarrhea. Review of Systems Review of Systems: Unobtainable due to reduced consciousness Physical Exam Physical Exam: Constitutional: No acute distress HEENT: PERRLA, positive trach Respiratory system: Decreased air entry b/l, no wheeze, rhonchi, positive crackles bilaterally CVS: S1-S2 positive, no murmurs or gallops Abdomen: Soft, nontender, nondistended, decreased bowel sounds, left lower quadrant is firm likely from previous surgery Extremities: +2 pulses bilaterally radialis/ dorsalis pedis, no cyanosis, +1 edema bilateral lower extremity Neuro: Following simple commands Psych: Unable to assess G/U: Positive Montes Skin: no rashes, warm and dry Lymphatic: no cervical or axillary lymphadenopathy Results & Data Results & Data ([facility]) Vital Signs (Past 12 Hours) Vital Signs Pulse Resp Pulse Ox 05/14/21 07:18 111 H 29 H 93 05/14/21 03:23 112 H 31 H 94 Coding Level of Care Code Critical Care 1st 30-74 mins Diagnoses Acute respiratory failure with hypoxia J96.01 Pneumonia due to 2019 novel coronavirus U07.1; J12.82 Obesity E66.9 Anxiety F41.9 DVT of axillary vein, acute bilateral I82.A13 Pneumomediastinum J98.2 HTN (hypertension) I10 Hypernatremia E87.0 Time Spent (min) 35
[2021-05-14] MEDS ORDERED: DOCUSATE SODIUM/SENNA 50/8.6MG TAB PO PRN (10:40)
[2021-05-14] MEDS ORDERED: POTASSIUM CHLORIDE 20 MEQ/15 ML UDC NG STA (10:40)
[2021-05-14] MEDS ORDERED: POLYETHYLENE (MIRALAX) 17 GM PACK PO PRN (10:40)
[2021-05-14] MEDS ORDERED: [UNRECOGNIZED DRUG - REMARK] ONE (11:00)
[2021-05-14] MEDS: ENOXAPARIN INJ 120 MG/0.8 ML SYR SQ SCH ×2 (12:11→22:05)
[2021-05-14] MEDS: ACETAMINOPHEN SUSP 325 MG/10.15 ML UDC OG PRN (12:11)
[2021-05-14] MEDS: PEPTAMEN INTENSE VHP 1.0 CAL 1,000 ML BAG OG SCH (12:13)
--- NOTE | 2021-05-14 12:37 | Pharmacy Report ---
Pharmacy Abx Dose Short Note - Date of Service May 14, 2021 - Assessment & Plan Assessment * 51 year old M receiving VANCOMYCIN IV for treatment of trach site infection * Day # 5/ of VANCOMYCIN IV therapy * Trach site cx growing: e. faecium, parabacteroides and c albicans * Metronidazole added 05/13 for anaerobic coverage * Renal fxn continues to improve (SCr 4.22 -->3.35 -->2.3-->1.79); UOP >0.5mL/kg/hr Plan Vancomycin * Random level this AM = 15.6, indicating need for redosing today * 1500mg IV x 1 this AM * Will repeat random level w/ AM labs tomorrow. Anticipate renal fxn will improve further. 1500mg Q 24 hrs still likely to achieve AUC/GABRIEL targets, IF renal fxn does not improve significantly in next 24-48hrs. * Goal AUC/GABRIEL 400-600 Pharmacy will continue to follow and will adjust dose/frequency as necessary. Thank you.
--- NOTE | 2021-05-14 12:55 | Pharmacy Report ---
Pharmacy Glycemic Short Note 2 - Date of Service May 14, 2021 - Glycemic Short BSG Results (Last 24 hours): 05/13/21 05/13/21 05/13/21 15:40 16:08 20:22 Glucose 145 H POC Glucose 174 H 51 L* 05/13/21 05/13/21 05/14/21 20:25 23:58 04:04 Glucose POC Glucose 96 151 H 96 05/14/21 05/14/21 05/14/21 04:08 07:33 11:36 Glucose 99 POC Glucose 78 174 H OUTPATIENT ANTIDIABETIC REGIMEN: * Metformin 1000 mg PO BID * Dulaglutide 3 mg SQ weekly on Thu * A1c: 9.2% (04/17/21) ASSESSMENT: 05/14 * BSGs somewhat erratic over last 24 hours. Overall trend is downwards however over last 12 hours * Evening BSG drawn 3 minutes apart last evening, BSG 51 on 1st check followed by 96 on second check. Reliability of result is in question. * Given overall downward trends in BSGs however, will reduce both basal and prandial insulin doses * Notable changes today: stopping heparin gtt (mixed in D5W), Novasource Renal being changed to Peptamen VHP (much lower carb content), D5W added to provide free water 05/13 * BSGs elevated yesterday secondary to addition of dextrose containing IVFs to treat hypernatremia * Upon discontinuation of dextrose IVFs BSGs did improve * 73 units SQ insulin given over last 24 hrs while receiving cont Novasource Renal TFs (currently @40cc/hr) as well as heparin gtt mixed in D5W * BSGs ranging 102-191 over last 24 hrs which is still acceptable. Plan to con tinue similar insulin doses today. 05/12 * BSGs reasonably well-controlled yesterday * Received 45 units of insulin yesterday (20 units of Lantus and 25 units of prandial/correctional bolus) * BSGs elevated so far today > 200 mg/dL, likely related to reduced basal dose yesterday in addition to dextrose-containing IV fluids * Will plan to stick with SC basal/bolus insulin for now, but will start IV in sulin infusion if BSGs continue to worsen at 1600 * Novasource renal at 40 mL/hr (29 g CHO q4h) 05/10 * Patient remains critically ill - goal BSG 140-180 mg/dL * BSG's increased yesterday above goal, likely 2nd reduced dose of Lantus in PM on 05/08 and AM on 05/09. Lantus increased last night and again this AM, back to previous regimen. Although this regimen may have contributed to hypoglycemia on 05/08, D5 fluids are infusing at this time * Will tighten correction factor as it was insufficient yesterday to manage BSG's PLAN FOR INPATIENT GLYCEMIC CONTROL: * Hold outpatient diabetes medications (metformin, Trulicity) * Lantus hold AM dose, 5 units SC x 1 now then 10 units BID starting this PM * Bolus insulin * NovoLog Q 4 hrs to cover carbs in tube feeds * Goal range: 120-140 mg/dL * Correction factor: 15 mg/dL/unit * CHO ratio: 5 grams CHO/unit delivered in continuous tube feeds (when running) PLAN FOR DISCHARGE: * see 05/04 note
[2021-05-14] MEDS ORDERED: INSULIN GLARGINE SOLOSTAR 100 UNITS/ML 3 ML PEN SC ONE ×2 (13:00)
--- NOTE | 2021-05-14 14:24 | Hospitalist Progress Note ---
Date of Service May 14, 2021 Assessment & Plan (1) Acute respiratory failure with hypoxia: (2) Pneumonia due to 2019 novel coronavirus: Plan: 51-year-old male with PMH of DM type II, HTN, obesity, GERD, HTN, anxiety and FARNAZ on CPAP presented 04/16 for evaluation of shortness of breath. Tested positive for COVID-19 on 04/06. Patient unvaccinated. At presentation to the ED, patient required 15 L oxygen to maintain saturation. Is being managed for the following: #. Acute respiratory failure with hypoxia #. Pneumonia due to 2019 novel coronavirus #. Moderate pneumomediastinum: 05/03 CTA chest Not vaccinated against Covid, tested positive on 04/06 [employer] via home test. Intubated on 04/24 for respiratory distress --> 05/01 percutaneous tracheostomy done --> 05/03 tracheostomy leak noted/failed tracheostomy exchange at bedside---> emergent reintubation 05/03---> 05/03 revision tracheostomy in OR Patient tracheostomy status/mechanically ventilated. Patient developed pneumomediastinum and extensive bilateral airspace opacities. Septic shock Weaned off pressors Culture from trach secretions grew Enterococcus faecium (resistant to penicillin), parabacteroides distasonis, c. albicans Blood cultures from negative so far Currently on vancomycin and flagyl Repeat cultures in view of persistent fevers Patient was poorly responsive initially after weaned off sedation He is currently responsive with MS and interaction improving CT head does not show acute CVA. PT/OT Per GI: PEG placement is not favorable for him due to surgical hx. #. HTN BP stable Antihypertensives on hold #. ZEN Had ZEN on 04/25 to 04/27 which resolved Developed ZEN again on 05/08/21 with Cr peaked at 4.22, currently 1.79 today Replete hypokalemia Hypernatremia. Free water flushes and IV D5W Good urine output Monitor. Avoid nephrotoxins #. Acute DVT BLE Status post TPA earlier in hospital course With improving renal function, heparin drip changed back to lovenox Disposition: ICU. Admission and Anticipated Discharge Date Admission Date: April 16, 2021 Subjective Patient seen and examined Patient is tracking and following simple commands Did not do well on trach collar trial yesterday Currently on vent connected to trach Continues to have persistent fevers Review of Systems Review of Systems: Unobtainable due to endotracheal tube Physical Exam Constitutional: no acute distress Eyes: PERRL ENMT: external ear and nose normal, oropharynx normal Trach in situ Respiratory: Mechanical vent via trach Cardiovascular: Rate/Rhythm: regular rate and regular rhythm S1 S2 Gastrointestinal (Abdomen): normal bowel sounds, soft, nontender, no hepatosplenomegaly Neurologic: Limited Awake alert Follows simple commands Genitourinary: Montes in situ Results & Data Results & Data ([facility]) Vital Signs (Past 12 Hours) Vital Signs Temp Pulse Resp BP Pulse Ox 05/14/21 12:00 38.5 C H 102 H 28 H 127/69 91 05/14/21 11:00 115 H 32 H 149/94 H 93 05/14/21 10:45 113 H 33 H 91 05/14/21 10:00 105 H 31 H 143/85 H 91 05/14/21 09:00 104 H 29 H 152/81 H 87 L 05/14/21 08:00 38.0 C H 110 H 27 H 148/80 H 100 05/14/21 07:18 111 H 29 H 93 05/14/21 07:00 107 H 25 H 131/77 92 05/14/21 03:23 112 H 31 H 94 Laboratory Results Abnormal lab results 05/13/21 05/13/21 05/13/21 Range/Units 15:40 16:08 20:18 RBC (4.7-6.1) M/uL Hgb (14.0-18.0) g/dL Hct (42-52) % MCV (80-100) fL MCHC (32-36) g/dL RDW Std Deviation (36.4-46.3) fL RDW Coeff of Raisa (11.5-14.5) % MPV (7.4-10.4) fL Absolute Nucleated RBC (0-0) K/uL APTT 47.0 H* (21.0-31.0) Seconds Sodium 154 H (136-145) mmol/L Potassium 3.2 L (3.5-5.1) mmol/L Chloride 113 H (98-107) mmol/L Carbon Dioxide 38 H (21-32) mmol/L BUN 93 H (6-23) mg/dl Creatinine 1.99 H D (0.6-1.4) mg/dl BUN/Creatinine Ratio 46.7 H (10-20) Glucose 145 H (70-99(Fasting)) mg/dl POC Glucose 174 H (70-99) mg/dl Calcium 7.8 L (8.5-10.1) mg/dl Phosphorus (2.5-4.9) mg/dl 05/13/21 05/13/21 05/14/21 Range/Units 20:22 23:58 04:08 RBC 3.09 L (4.7-6.1) M/uL Hgb 9.2 L (14.0-18.0) g/dL Hct 31.2 L (42-52) % MCV 101.0 H (80-100) fL MCHC 29.5 L (32-36) g/dL RDW Std Deviation 58.4 H (36.4-46.3) fL RDW Coeff of Raisa 16.3 H (11.5-14.5) % MPV 11.2 H (7.4-10.4) fL Absolute Nucleated RBC 0.03 H (0-0) K/uL APTT (21.0-31.0) Seconds Sodium (136-145) mmol/L Potassium (3.5-5.1) mmol/L Chloride (98-107) mmol/L Carbon Dioxide (21-32) mmol/L BUN (6-23) mg/dl Creatinine (0.6-1.4) mg/dl BUN/Creatinine Ratio (10-20) Glucose (70-99(Fasting)) mg/dl POC Glucose 51 L* 151 H (70-99) mg/dl Calcium (8.5-10.1) mg/dl Phosphorus (2.5-4.9) mg/dl 05/14/21 05/14/21 05/14/21 Range/Units 04:08 04:13 11:36 RBC (4.7-6.1) M/uL Hgb (14.0-18.0) g/dL Hct (42-52) % MCV (80-100) fL MCHC (32-36) g/dL RDW Std Deviation (36.4-46.3) fL RDW Coeff of Raisa (11.5-14.5) % MPV (7.4-10.4) fL Absolute Nucleated RBC (0-0) K/uL APTT 41.4 H (21.0-31.0) Seconds Sodium 155 H (136-145) mmol/L Potassium 3.1 L (3.5-5.1) mmol/L Chloride 114 H (98-107) mmol/L Carbon Dioxide 38 H (21-32) mmol/L BUN 84 H (6-23) mg/dl Creatinine 1.79 H (0.6-1.4) mg/dl BUN/Creatinine Ratio 46.9 H (10-20) Glucose (70-99(Fasting)) mg/dl POC Glucose 174 H (70-99) mg/dl Calcium 7.9 L (8.5-10.1) mg/dl Phosphorus 2.3 L (2.5-4.9) mg/dl
[2021-05-14 14:52] LABS: BUN Creatinine Ratio 42.2 (10-20); Calcium 7.7 mg/dl (8.5-10.1); Creatinine Clr Calc Pharmacy 60.8 ml/min; Est GFR (African American) 48.7 ml/min; Potassium 3.2 mmol/L (3.5-5.1)
[2021-05-14 15:05] LABS: Appearance Urine Cloudy (Clear); Bacteria Urine Automated Negative (Negative); Bilirubin Urine Negative (Negative); Blood Urine 3+ (Negative); Color Urine Yellow; Epithelial Cell Urine Auto >30 /lpf (0-5); Glucose Urine UA Trace (Negative); Ketones Urine Negative (Negative); Leukocyte Esterase Urine 1+ (Negative); Nitrite Urine Negative (Negative); Protein Urine 1+ (Negative); Specific Gravity Urine 1.017 (1.000-1.030); Urobilinogen Urine Negative (Negative); pH Urine 5.5 (4.5-7.5)
[2021-05-14] MEDS: INSULIN GLARGINE SOLOSTAR 100 UNITS/ML 3 ML PEN SC SCH (20:51)
[2021-05-15] MEDS: TUBE FEEDING WATER FLUSH NG SCH ×13 (01:15→23:49)
[2021-05-15] MEDS: DEXTROSE 5% 1,000 ML IV SCH ×3 (01:15→20:54)
[2021-05-15 01:28] LABS: iSTAT Allen Test Pass; iSTAT Art Bld Gas pCO2 Correct 55 mmHg (35-46); iSTAT Art Bld Gas pH Corrected 7.405 (7.35-7.45); iSTAT Arterial Blood Gas HCO3 35 meg/L (19-24); iSTAT Arterial Blood Gas pCO2 56 mmHg (35-46); iSTAT Arterial Blood Gas pO2 72 mmHg (80-95); iSTAT Arterial Blood Gas pO2 C 71; iSTAT Carbon Dioxide 36 mmol/L (24-31); iSTAT FiO2 40 %; iSTAT Hematocrit 23 % (42-52); iSTAT Hemoglobin 7.8 g/dl (14.0-18.0); iSTAT Potassium 2.8 mmol/L (3.3-5.0); iSTAT Site R Brachial; iSTAT Sodium 149 mmol/L (135-144)
[2021-05-15 01:47] LABS: BUN Creatinine Ratio 41.3 (10-20); Calcium 7.6 mg/dl (8.5-10.1); Creatinine Clr Calc Pharmacy 65.5 ml/min; Est GFR (African American) 53.3 ml/min; Potassium 3.2 mmol/L (3.5-5.1)
[2021-05-15] MEDS: INSULIN ASPART PER UNIT SC SCH ×7 (01:48→23:48)
[2021-05-15 01:49] LABS: Hemoglobin 8.4 g/dL (14.0-18.0); Mean Corpuscular Hemoglobin 29.4 pg (25-34); Mean Corpuscular Volume 101.4 fL (80-100); Mean Platelet Volume 11.1 fL (7.4-10.4); Nucleated RBC # (auto) 0.03 K/uL (0-0); Nucleated RBC % (auto) 0.4 %; Platelet Count 235 K/uL (130-400); RDW Coefficient of Variation 16.8 % (11.5-14.5); RDW Standard Deviation 61.8 fL (36.4-46.3); Red Blood Count 2.86 M/uL (4.7-6.1); White Blood Count 8.03 K/uL (4.8-10.8)
[2021-05-15 01:51] LABS: Basophils # (auto) 0.02 K/uL (0-0.2); Basophils % (auto) 0.2 %; Eosinophils # (auto) 0.27 K/uL (0-0.5); Eosinophils % (auto) 3.4 %; Immature Granulocytes # (auto) 0.24 K/uL (0.00-0.02); Lymphocytes # (auto) 0.77 K/uL (1.2-3.4); Lymphocytes % (auto) 9.6 %; Monocytes # (auto) 0.68 K/uL (0.11-0.59); Monocytes % (auto) 8.5 %; Neutrophils # (auto) 6.05 K/uL (1.4-6.5); Neutrophils % (auto) 75.3 %; RBC Morphology Unremarkable
[2021-05-15 01:56] LABS: Magnesium 1.8 mg/dl (1.7-2.4); Phosphorus 1.5 mg/dl (2.5-4.9)
[2021-05-15] MEDS ORDERED: POTASSIUM PHOS 3 MMOL/1 ML INFUSION IV STA (01:58)
[2021-05-15] MEDS: POTASSIUM CHLORIDE / WTR 20 MEQ/100 ML PLCT IV SCH ×4 (02:16→16:30)
[2021-05-15] MEDS ORDERED: POTASSIUM PHOSPHATE 21 MMOL in SODIUM CHLORIDE 0.9% 500 ML IV ONE (02:30)
[2021-05-15 02:32] LABS: Troponin I 0.04 ng/ml (0-0.04)
[2021-05-15] MEDS: metroNIDAZOLE 500 MG TAB PO SCH ×3 (05:01→23:06)
[2021-05-15 05:37] LABS: Hematocrit (blood only) 28.7 % (42-52); Hemoglobin 8.4 g/dL (14.0-18.0); Mean Corpuscular Hemoglobin 29.5 pg (25-34); Mean Corpuscular Hgb Conc 29.3 g/dL (32-36); Mean Corpuscular Volume 100.7 fL (80-100); Mean Platelet Volume 10.9 fL (7.4-10.4); Platelet Count 257 K/uL (130-400); RDW Coefficient of Variation 16.8 % (11.5-14.5); RDW Standard Deviation 61.6 fL (36.4-46.3); Red Blood Count 2.85 M/uL (4.7-6.1); White Blood Count 7.92 K/uL (4.8-10.8)
[2021-05-15 05:49] LABS: BUN Creatinine Ratio 40.6 (10-20); Calcium 7.7 mg/dl (8.5-10.1); Creatinine Clr Calc Pharmacy 68.4 ml/min; Est GFR (African American) 56.2 ml/min; Est GFR (Non-African American) 48.5 ml/min; Potassium 3.4 mmol/L (3.5-5.1)
--- NOTE | 2021-05-15 07:08 | XRay Report ---
XR chest 1V portable CLINICAL HISTORY: asystolic episode COMPARISON STUDY: Chest radiograph 2021. FINDINGS: Tracheostomy tube is in place. Left sided PICC is noted. Tip of nasogastric tube is at leas t within the body of the stomach. No pneumothorax or pleural effusion is noted. Diffuse interstitial thickening with bilateral opacities persist. Cardiomediastinal silhouette is stable. No pneumothorax or pleural effusion is identified. IMPRESSION: 1. Satisfactory positioning of lines and tubes. 2. No significant change in interstitial thickening and bilateral opacities. ACT 112: Negative or not required by law. Electronically signed by: Reynaldo Michel M.D. 05/15/2021 7:07 AM
[2021-05-15] MEDS: INSULIN GLARGINE SOLOSTAR 100 UNITS/ML 3 ML PEN SC SCH ×2 (09:02→20:39)
[2021-05-15] MEDS: VANCOMYCIN HCL 1,000 MG in DEXTROSE 5% 250 ML IV SCH ×2 (09:03→20:42)
[2021-05-15] MEDS: MULTI VIT W/MINERALS LIQUID 15 ML UDP PO SCH (09:04)
[2021-05-15] MEDS: LANSOPRAZOLE 30 MG SOLTAB NG SCH (09:04)
[2021-05-15] MEDS: METOPROLOL TARTRATE 25 MG TAB PO SCH (09:56)
--- NOTE | 2021-05-15 10:32 | Critical Care Progress Note ---
Date of Service May 15, 2021 Assessment & Plan (1) Acute respiratory failure with hypoxia: (2) Pneumonia due to 2019 novel coronavirus: (3) Obesity: (4) Anxiety: (5) DVT of axillary vein, acute bilateral: (6) Pneumomediastinum: (7) HTN (hypertension): (8) Hypernatremia: Plan: Reason Critically Ill: Acute hypoxic respiratory failure secondary to COVID-19 pneumonia PLAN: Neuro: Following commands. Remains weak. PT/OT. CT head 05/08/2021: Chronic microvascular changes but no acute stroke. Sinusitis seen. Resp: --Hypoxic respiratory failure secondary to multilobar COVID-19 pneumonia Patient status post percutaneous tracheostomy placement 05/02/21. ENT performed a trach revision 05/03. Purulent discharge noted around tracheostomy. Remains on pressure support trials and unable to tolerate tracheostomy collar trials due to increased work of breathing and hypoxia. Repeat chest x-ray pending from this morning. CT chest 05/08/21: Diffuse opacities appreciated bilaterally, improved from before. Mild pneumomediastinum also appreciated --Pneumomediastinum --> improving CV: We will hold metoprolol today given concern for brief asystolic event overnight. Off vasopressors Lower extremity arterial ultrasound of the right leg 05/01 without arterial occlusion or hemodynamically significant stenosis. Keep potassium around 4, magnesium greater than 2, phosphorus around 3 Fluids/Renal: --ZEN Creatinine improving Monitor BUNs/creatinine Hypernatremia --> improving with D5W and frequent free water flushes. Continue tube feeds. Replace electrolytes per protocol. ID: Fever curve improving. Culture from around the trach site 05/07/2021: Enterococcus faecium resistant to penicillin, parabacteroides, fiordaliza. Sensitive to vancomycin -> started 05/10/2021. Flagyl started 05/13/21 C. difficile stool studies negative. Pro-Tomás unremarkable. Urine culture pending. Repeat blood cultures pending as well. Sputum cultures from 05/02 - thus far. Blood cultures from 04/25 with no growth. Fungal blood cultures from 04/25 with no growth as well. Pro-Tomás from 05/02 0.24 --> 0.14 on 05/04 Urine culture from 05/03 with no growth. Unasyn changed to Zosyn to 05/08/21 and completed total course of 7 days for sinusitis GI/Nutrition: GI note from 05/18/21 reviewed indicating that PEG would be difficult in this patient given ventral mesh placement and malrotation. CT abdomen pelvis 05/08/21: Dilated bowel loops likely presenting ileus. No clear obstruction seen. No evidence of hematoma. Heme: Acute DVT s/p tpa earlier in hospital course. Hgb stable --New onset thrombocytopenia --> resolved Endocrine: ICU hyperglycemia protocol Continue insulin gtt with elevated BSG --Prophylaxis VTE: Therapeutic Lovenox GI: Lansoprazole Lines: Left arm PICC 05/07/2021, trach revision 05/03 Diet: Tube feeds I have personally spent 32 minutes of critical care time in the direct management of this patient. This is a life/limb threatening event. This includes time spent evaluating patient, direct bedside care, chart review, placing orders, interpretation of diagnostic studies, discussion with consultants, patient, and family members, as well as other required patient management activities. This time is exclusive of all separately billable procedures, and teaching time and separate from and in addition to any other critical care service time. Admission and Anticipated Discharge Date Admission Date: April 16, 2021 Subjective There was concern for a brief asystolic event overnight, with the patient is completely awake and alert this morning without any hemodynamic issues. I question whether the patient actually had an asystolic event. Afebrile overnight. Review of Systems Review of Systems: All systems reviewed & are unremarkable except as noted in HPI & below Physical Exam Physical Exam: Constitutional: No acute distress HEENT: PERRLA, positive trach Respiratory system: Decreased air entry b/l, no wheeze, rhonchi, positive crackles bilaterally CVS: S1-S2 positive, no murmurs or gallops Abdomen: Soft, nontender, nondistended, decreased bowel sounds, left lower quadrant is firm likely from previous surgery Extremities: +2 pulses bilaterally radialis/ dorsalis pedis, no cyanosis, +1 edema bilateral lower extremity Neuro: Following simple commands Psych: Normal affect G/U: Positive Montes Skin: no rashes, warm and dry Lymphatic: no cervical or axillary lymphadenopathy Results & Data Results & Data ([facility]) Vital Signs (Past 12 Hours) Vital Signs Temp Pulse Resp BP Pulse Ox 05/15/21 07:45 97 H 31 H 92 05/15/21 06:00 37.3 C 80 27 H 119/71 92 05/15/21 05:15 95 H 25 H 94 05/15/21 05:00 37.3 C 81 21 133/77 99 05/15/21 04:00 37.3 C 81 25 H 115/72 99 05/15/21 03:30 79 28 H 99 05/15/21 03:00 37.3 C 85 30 H 122/75 99 05/15/21 02:00 37.3 C 92 H 29 H 109/67 96 05/15/21 01:30 37.3 C 96 H 29 H 127/76 94 05/15/21 00:00 37.3 C 81 30 H 120/73 95 05/14/21 23:00 37.3 C 76 28 H 108/66 94 05/14/21 22:32 82 29 H 96 Coding Level of Care Code Critical Care 1st 30-74 mins Diagnoses Acute respiratory failure with hypoxia J96.01 Pneumonia due to 2019 novel coronavirus U07.1; J12.82 Obesity E66.9 Anxiety F41.9 DVT of axillary vein, acute bilateral I82.A13 Pneumomediastinum J98.2 HTN (hypertension) I10 Hypernatremia E87.0 Time Spent (min) 32
--- NOTE | 2021-05-15 10:54 | XRay Report ---
XR chest 1V portable at 10:23 AM CLINICAL HISTORY: hypoxia. Follow-up airspace opacities COMPARISON STUDY: 05/15/2021 at 12:57 AM TECHNIQUE: 1 view of the chest FINDINGS: Single frontal view of the chest demonstrates the cardiomediastinal silhouette to be within normal li mits. Tubes and catheters are unchanged. Compared to previous examination, there is slight interval w orsening of diffuse interstitial and alveolar opacities. No confluent alveolar opacities or air bronc hograms are seen. There is blunting of left costophrenic angle now present characteristic of a small left pleural effusion. There is no evidence for right pleural effusion. There is no evidence for vasc ular congestion. There is no acute osseous pathology. IMPRESSION: Compared to earlier examination, there is evidence for slight interval worsening of diffu se interstitial and alveolar opacities. This also evidence for small left pleural effusion. ACT 112: Negative or not required by law. Electronically signed by: Valdo Marina M.D. 05/15/2021 10:52 AM
--- NOTE | 2021-05-15 11:33 | Pharmacy Report ---
Pharmacy Vanc AUC Short Note - Date of Service May 15, 2021 - Assessment & Plan Assessment 51 year old M receiving vancomycin and metronidazole for treatment of trach site infection. Trach site culture (+) E. faecium, Gayla, and parabacteroides. Renal function continues to improve; SCr 1.8 --> 1.6 today. Day #6 of antimicrobial therapy. Plan Vancomycin * Random level this AM - 16.1mcg/mL. Safe to re-dose. * Plan to adjust to scheduled vancomycin 1000 mg IV every 12 hours given renal function improving. * Trough level of 17.9 mcg/mL is predicted to achieve target AUC/GABRIEL of 400-600 mg/L.hr and may be associated with a 14 % risk of nephrotoxicity * Monitor renal fxn closely; likely additional adjustments necessary if therapy continues beyond 7 days. * Will obtain a trough around steady state of this regimen, or sooner if clinically indicated. Pharmacy will continue to follow and will adjust dose/frequency as necessary. Thank you.
[2021-05-15] MEDS ORDERED: FUROSEMIDE 40 MG/4 ML VIAL IV ONE ×2 (11:41→14:30)
[2021-05-15] MEDS ORDERED: POTASSIUM CHLORIDE 20 MEQ/15 ML UDC PO STA (11:42)
[2021-05-15 12:34] LABS: BUN Creatinine Ratio 42.3 (10-20); Calcium 7.6 mg/dl (8.5-10.1); Est GFR (African American) 64.9 ml/min; Magnesium 1.7 mg/dl (1.7-2.4); Potassium 3.1 mmol/L (3.5-5.1)
[2021-05-15] MEDS: ENOXAPARIN INJ 120 MG/0.8 ML SYR SQ SCH ×2 (12:56→23:06)
--- NOTE | 2021-05-15 14:08 | Pharmacy Report ---
Pharmacy Glycemic Short Note 2 - Date of Service May 15, 2021 - Glycemic Short BSG Results (Last 24 hours): 05/14/21 05/14/21 05/14/21 13:56 17:14 20:46 Glucose 221 H POC Glucose 211 H 204 H 05/15/21 05/15/21 05/15/21 01:09 01:46 04:55 Glucose 196 H 183 H POC Glucose 199 H 05/15/21 05/15/21 05/15/21 05:03 09:16 11:51 Glucose 136 H POC Glucose 171 H 144 H OUTPATIENT ANTIDIABETIC REGIMEN: * Metformin 1000 mg PO BID * Dulaglutide 3 mg SQ weekly on Thu * A1c: 9.2% (04/17/21) ASSESSMENT: 05/15 * BSGs largely within goal over last 24 hours. * Peptamen VHP continues @ goal. D5W continues @ 70ml/hr. * No changes to prandial insulin today. Plan for 10 units AM Lantus and HS Lantus scale given BSGs have trended down after 15 units of basal yesterday. 05/14 * BSGs somewhat erratic over last 24 hours. Overall trend is downwards however over last 12 hours * Evening BSG drawn 3 minutes apart last evening, BSG 51 on 1st check followed by 96 on second check. Reliability of result is in question. * Given overall downward trends in BSGs however, will reduce both basal and prandial insulin doses * Notable changes today: stopping heparin gtt (mixed in D5W), Novasource Renal being changed to Peptamen VHP (much lower carb content), D5W added to provide free water 05/13 * BSGs elevated yesterday secondary to addition of dextrose containing IVFs to treat hypernatremia * Upon discontinuation of dextrose IVFs BSGs did improve * 73 units SQ insulin given over last 24 hrs while receiving cont Novasource Renal TFs (currently @40cc/hr) as well as heparin gtt mixed in D5W * BSGs ranging 102-191 over last 24 hrs which is still acceptable. Plan to continue similar insulin doses today. 05/12 * BSGs reasonably well-controlled yesterday * Received 45 units of insulin yesterday (20 units of Lantus and 25 units of prandial/correctional bolus) * BSGs elevated so far today > 200 mg/dL, likely related to reduced basal dose yesterday in addition to dextrose-containing IV fluids * Will plan to stick with SC basal/bolus insulin for now, but will start IV insulin infusion if BSGs continue to worsen at 1600 * Novasource renal at 40 mL/hr (29 g CHO q4h) 05/10 * Patient remains critically ill - goal BSG 140-180 mg/dL * BSG's increased yesterday above goal, likely 2nd reduced dose of Lantus in PM on 05/08 and AM on 05/09. Lantus increased last night and again this AM, back to previous regimen. Although this regimen may have contributed to hypoglycemia on 05/08, D5 fluids are infusing at this time * Will tighten correction factor as it was insufficient yesterday to manage BSG's PLAN FOR INPATIENT GLYCEMIC CONTROL: * Hold outpatient diabetes medications (metformin, Trulicity) * Lantus 10units qAM, HS scale * Bolus insulin * NovoLog Q 4 hrs to cover carbs in tube feeds * Goal range: 120-140 mg/dL * Correction factor: 15 mg/dL/unit * CHO ratio: 5 grams CHO/unit delivered in continuous tube feeds (when running) PLAN FOR DISCHARGE: * see 05/04 note
--- NOTE | 2021-05-15 17:16 | Hospitalist Progress Note ---
Date of Service May 15, 2021 Assessment & Plan (1) Acute respiratory failure with hypoxia: (2) Pneumonia due to 2019 novel coronavirus: Plan: Patient is a 51 yr male with H/O DM type II, HTN, obesity, GERD, HTN, anxiety and FARNAZ on CPAP presented 04/16 for evaluation of shortness of breath. Tested positive for COVID-19 on 04/06. Patient unvaccinated. Acute respiratory failure with hypoxia Pneumonia due to 2018 novel coronavirus Moderate pneumomediastinum: 05/03 CTA chest Unvaccinated state Covid, tested positive on 04/06 Intubated on 04/24 05/01 percutaneous tracheostomy 05/03 tracheostomy leak noted/failed tracheostomy exchange 05/03 Emergent reintubation 05/03 revision tracheostomy in OR --CTA:No pulmonary emboli identified although segmental and subsegmental pulmonary arteries suboptimally assessed due to respiratory motion. Moderate pneumomediastinum. No pneumothorax. Extensive bilateral airspace opacities within the lungs, as described above. Cardiomegaly. Pneumomediastinum and extensive bilateral airspace opacities. Septic shock Currently weaned off pressors Trach secretions cultures grew Enterococcus faecium (resistant to penicillin), parabacteroides distasonis, c. albicans Blood/urine cultures:negative to date Currently on vancomycin and flagyl Appreciate Critical Care Input Continue PT/OT Off pressors On Tube feeds Needs LTAC placement Transient Asystole Metoprolol held Monitor HTN BP stable Antihypertensives on hold Hypernatremia Free flushes D5 water as needed Monitor sodium level DM II HbA1C: 9.2 Continue Insulin therapy Monitor BGs Acute Kidney Injury Cr:4.2>2.30>1.67 Monitor renal function Avoid nephrotoxic agents as able Hypokalemia Replace electrolytes as needed Acute DVT BLE S/P TPA IV Heparin transitioned to Lovenox DVT Px: Lovenox Code Status Full Code Disposition Needs LTAC placement Admission and Anticipated Discharge Date Admission Date: April 16, 2021 Subjective Patient is seen and examined at bedside Discussed with patient's family at bedside Patient is alert, awake Unable to obtain much history secondary to trach Afebrile today Review of Systems Review of Systems: Unobtainable due to endotracheal tube Physical Exam Physical Exam: Physical Exam: Vitals signs as noted above General Appearance:Moderately built and nourished, no apparent distress Head: normocephalic, Atraumatic, +Trach Eyes: normal inspection, EOMI Neck: supple, Trachea midline Respiratory/Chest: Normal breath sounds, CTA, No accessory muscle use Cardiovascular: S1, S2, No murmur, +Tachycardia Abdomen/GI:Soft, Non tender, Bowel sounds present Extremities/Musculoskeletal:normal inspection, 1+ B/L LE edema Neurologic/Psych:grossly no focal neurological deficits Skin: normal color, warm Results & Data Results & Data ([facility]) Vital Signs (Past 12 Hours) Vital Signs Temp Pulse Resp BP Pulse Ox 05/15/21 16:30 37.5 C 05/15/21 15:55 101 H 26 H 95 05/15/21 14:00 100 H 28 H 120/81 93 05/15/21 13:00 103 H 27 H 107/75 94 05/15/21 12:26 37.2 C 05/15/21 12:00 101 H 31 H 127/76 93 05/15/21 11:00 89 27 H 118/73 95 05/15/21 10:51 100 H 29 H 95 05/15/21 10:00 71 32 H 133/74 92 05/15/21 09:00 103 H 22 154/72 H 89 L 05/15/21 08:00 37.1 C 85 29 H 125/78 89 L 05/15/21 07:45 97 H 31 H 92 05/15/21 07:00 88 28 H 135/72 95 05/15/21 06:00 37.3 C 80 27 H 119/71 92 05/15/21 05:15 95 H 25 H 94 05/15/21 05:00 37.3 C 81 21 133/77 99 Laboratory Results Short CBC 05/15/21 05/15/21 Range/Units 01:04 04:55 WBC 8.03 7.92 (4.8-10.8) K/uL Hgb 8.4 L 8.4 L (14.0-18.0) g/dL Hct 29.0 L 28.7 L (42-52) % Plt Count 235 257 (130-400) K/uL BMP 05/15/21 05/15/21 05/15/21 01:09 04:55 11:51 Sodium 150 H 150 H 149 H Potassium 3.2 L 3.4 L 3.1 L Chloride 112 H 112 H 111 H Carbon Dioxide 37 H 36 H 36 H BUN 69 H 65 H 60 H Creatinine 1.67 H 1.60 H 1.42 H Glucose 196 H 183 H 136 H Calcium 7.6 L 7.7 L 7.6 L Cardiac Enzymes 05/15/21 Range/Units 01:09 Troponin I 0.04 (0-0.04) ng/ml
[2021-05-15] MEDS ORDERED: ALBUT/IPRATROP 3MG/0.5MG NEB 3 ML VIAL NEB SCH (19:00)
--- NOTE | 2021-05-15 19:50 | Electrocardiogram Report ---
Test Reason : Blood Pressure : / mmHG Vent. Rate : 103 BPM Atrial Rate : 103 BPM P-R Int : 148 ms QRS Dur : 088 ms QT Int : 376 ms P-R-T Axes : 000 012 024 degrees QTc Int : 493 ms Poor data quality, interpretation may be adversely affected Sinus tachycardia Nonspecific T wave abnormality Prolonged QT Abnormal ECG When compared with ECG of 20-SEP-2012 12:45, QT has lengthened Confirmed by Anand Gutiérrez ([id number]) on 05/15/2021 7:50:17 PM Referred By: REFERRED SELF Confirmed By:Anand Gutiérrez
[2021-05-16] MEDS: TUBE FEEDING WATER FLUSH NG SCH ×9 (03:59→22:24)
[2021-05-16] MEDS: INSULIN ASPART PER UNIT SC SCH ×5 (05:12→20:13)
[2021-05-16] MEDS: metroNIDAZOLE 500 MG TAB PO SCH ×3 (05:16→22:24)
[2021-05-16 05:22] LABS: Hematocrit (blood only) 28.2 % (42-52); Hemoglobin 8.3 g/dL (14.0-18.0); Mean Corpuscular Hemoglobin 28.8 pg (25-34); Mean Corpuscular Hgb Conc 29.4 g/dL (32-36); Mean Corpuscular Volume 97.9 fL (80-100); Mean Platelet Volume 10.8 fL (7.4-10.4); Nucleated RBC # (auto) 0.03 K/uL (0-0); Nucleated RBC % (auto) 0.3 %; Platelet Count 254 K/uL (130-400); RDW Coefficient of Variation 16.5 % (11.5-14.5); RDW Standard Deviation 58.5 fL (36.4-46.3); Red Blood Count 2.88 M/uL (4.7-6.1); White Blood Count 11.04 K/uL (4.8-10.8)
[2021-05-16 05:45] LABS: BUN Creatinine Ratio 36.9 (10-20); Calcium 7.7 mg/dl (8.5-10.1); Creatinine Clr Calc Pharmacy 84.1 ml/min; Est GFR (African American) 72.2 ml/min; Est GFR (Non-African American) 62.3 ml/min; Magnesium 1.5 mg/dl (1.7-2.4); Phosphorus 1.7 mg/dl (2.5-4.9); Potassium 2.8 mmol/L (3.5-5.1)
[2021-05-16] MEDS ORDERED: POTASSIUM CHLORIDE CRTAB 20 MEQ TABCR PO STA (06:11)
[2021-05-16] MEDS ORDERED: POTASSIUM PHOS 3 MMOL/1 ML INFUSION IV STA (06:11)
[2021-05-16] MEDS: POTASSIUM CHLORIDE / WTR 20 MEQ/100 ML PLCT IV SCH ×3 (06:42→10:42)
[2021-05-16] MEDS: MAGNESIUM SULFATE / D5W 1 GM/100 ML BAG IV SCH ×7 (06:46→21:24)
[2021-05-16] MEDS ORDERED: POTASSIUM PHOSPHATE 21 MMOL in SODIUM CHLORIDE 0.9% 500 ML IV ONE (07:15)
[2021-05-16] MEDS: VANCOMYCIN HCL 1,000 MG in DEXTROSE 5% 250 ML IV SCH (07:53)
[2021-05-16] MEDS: PEPTAMEN INTENSE VHP 1.0 CAL 1,000 ML BAG OG SCH (07:54)
[2021-05-16] MEDS: LANSOPRAZOLE 30 MG SOLTAB NG SCH (07:58)
[2021-05-16] MEDS: MULTI VIT W/MINERALS LIQUID 15 ML UDP PO SCH (07:58)
[2021-05-16] MEDS: INSULIN GLARGINE SOLOSTAR 100 UNITS/ML 3 ML PEN SC SCH ×2 (07:58→20:15)
--- NOTE | 2021-05-16 08:18 | Critical Care Progress Note ---
Date of Service May 16, 2021 Assessment & Plan (1) Acute respiratory failure with hypoxia: (2) Pneumonia due to 2019 novel coronavirus: (3) Obesity: (4) Anxiety: (5) DVT of axillary vein, acute bilateral: (6) Pneumomediastinum: (7) HTN (hypertension): (8) Hypernatremia: (9) Tracheostomy infection: Plan: Reason Critically Ill: Acute hypoxic respiratory failure secondary to COVID-19 pneumonia PLAN: Neuro: Following commands. Remains weak. PT/OT. CT head 05/08/2021: Chronic microvascular changes but no acute stroke. Sinusitis seen. Resp: --Hypoxic respiratory failure secondary to multilobar COVID-19 pneumonia Patient status post percutaneous tracheostomy placement 05/02/21. ENT performed a trach revision 05/03. Purulent discharge noted around tracheostomy. We will ask for ENT to come by and evaluate the trach site. Remains on pressure support trials and unable to tolerate tracheostomy collar trials due to increased work of breathing and hypoxia. CT chest 05/08/21: Diffuse opacities appreciated bilaterally, improved from before. Mild pneumomediastinum also appreciated --Pneumomediastinum --> improving CV: Continue to hold metoprolol unless there is significant sinus tachycardia or arrhythmia. Off vasopressors Lower extremity arterial ultrasound of the right leg 05/01 without arterial occlusion or hemodynamically significant stenosis. Keep potassium around 4, magnesium greater than 2, phosphorus around 3 Fluids/Renal: --ZEN Improving. Hypernatremia improving as well. Continue to aggressively replete potassium, magnesium and phosphorus. Electrolyte protocol ordered. ID: Fever curve improving. Culture from around the trach site 05/07/2021: Enterococcus faecium resistant to penicillin, parabacteroides, fiordaliza. Sensitive to vancomycin -> started 05/10/2021. Flagyl started 05/13/21 C. difficile stool studies negative. Pro-Tomás unremarkable. Repeat urine and blood cultures from 05/14 -. Afebrile for 48 hours. Sputum cultures from 05/02 - thus far. Unasyn changed to Zosyn to 05/08/21 and completed total course of 7 days for sinusitis earlier in the hospitalization GI/Nutrition: GI note from 05/18/21 reviewed indicating that PEG would be difficult in this patient given ventral mesh placement and malrotation. CT abdomen pelvis 05/08/21: Dilated bowel loops likely presenting ileus. No clear obstruction seen. No evidence of hematoma. Heme: Acute DVT s/p tpa earlier in hospital course. Hgb stable --New onset thrombocytopenia --> resolved Endocrine: ICU hyperglycemia protocol --Prophylaxis VTE: Therapeutic Lovenox GI: Lansoprazole Lines: Left arm PICC 05/07/2021, trach revision 05/03 Diet: Tube feeds I have personally spent 34 minutes of critical care time in the direct management of this patient. This is a life/limb threatening event. This includes time spent evaluating patient, direct bedside care, chart review, placing orders, interpretation of diagnostic studies, discussion with consultants, patient, and family members, as well as other required patient management activities. This time is exclusive of all separately billable procedures, and teaching time and separate from and in addition to any other critical care service time. Admission and Anticipated Discharge Date Admission Date: April 16, 2021 Subjective Patient seen and examined this morning. Continues to have purulent drainage around his tracheostomy site. No significant events overnight. Review of Systems Review of Systems: All systems reviewed & are unremarkable except as noted in HPI & below Physical Exam Physical Exam: Constitutional: No acute distress HEENT: PERRLA, tracheostomy in place with purulent drainage Respiratory system: Decreased air entry b/l, no wheeze, rhonchi, positive crackles bilaterally CVS: S1-S2 positive, no murmurs or gallops Abdomen: Soft, nontender, nondistended, decreased bowel sounds, left lower quadrant is firm likely from previous surgery Extremities: +2 pulses bilaterally radialis/ dorsalis pedis, no cyanosis, +1 edema bilateral lower extremity Neuro: Following simple commands Psych: Normal affect G/U: Positive Montes Skin: no rashes, warm and dry Lymphatic: no cervical or axillary lymphadenopathy Results & Data Results & Data ([facility]) Vital Signs (Past 12 Hours) Vital Signs Temp Pulse Resp BP Pulse Ox 05/16/21 07:58 99 H 36 H 93 05/16/21 07:00 103 H 34 H 143/83 H 95 05/16/21 06:00 37.5 C 101 H 34 H 161/88 H 93 05/16/21 05:00 37.5 C 94 H 32 H 153/89 H 96 05/16/21 04:00 37.5 C 94 H 31 H 137/85 96 05/16/21 03:30 86 32 H 95 05/16/21 03:00 90 27 H 144/85 H 94 05/16/21 02:00 89 23 118/75 94 05/16/21 01:00 90 29 H 139/77 93 05/16/21 00:00 37.1 C 94 H 33 H 153/91 H 89 L 05/15/21 23:05 96 H 29 H 92 05/15/21 23:00 97 H 30 H 120/81 94 05/15/21 22:00 88 30 H 150/89 H 93 05/15/21 21:00 149/90 H Coding Level of Care Code Critical Care 1st 30-74 mins Diagnoses Acute respiratory failure with hypoxia J96.01 Pneumonia due to 2019 novel coronavirus U07.1; J12.82 Obesity E66.9 Anxiety F41.9 DVT of axillary vein, acute bilateral I82.A13 Pneumomediastinum J98.2 HTN (hypertension) I10 Hypernatremia E87.0 Tracheostomy infection J95.02 Time Spent (min) 34
[2021-05-16] MEDS: ENOXAPARIN INJ 120 MG/0.8 ML SYR SQ SCH ×2 (10:25→22:24)
--- NOTE | 2021-05-16 13:01 | Pharmacy Report ---
Pharmacy Glycemic Short Note 2 - Date of Service May 16, 2021 - Glycemic Short BSG Results (Last 24 hours): 05/15/21 05/15/21 05/15/21 16:53 20:35 23:42 Glucose POC Glucose 98 115 H 166 H 05/16/21 05/16/21 05/16/21 04:55 05:09 08:11 Glucose 176 H POC Glucose 177 H 177 H 05/16/21 11:38 Glucose POC Glucose 145 H OUTPATIENT ANTIDIABETIC REGIMEN: * Metformin 1000 mg PO BID * Dulaglutide 3 mg SQ weekly on Thu * A1c: 9.2% (04/17/21) ASSESSMENT: 05/16: * BSGs well controlled the last 24h. * Peptamen continues @ goal. D5W discontinued today. * Novolog loosened slightly given dextrose d/c'd and BSGs down-trending below goal last evening. No change to basal insulin today - will leave HS scale tonight given D5 cut. 05/15 * BSGs largely within goal over last 24 hours. * Peptamen VHP continues @ goal. D5W continues @ 70ml/hr. * No changes to prandial insulin today. Plan for 10 units AM Lantus and HS Lantus scale given BSGs have trended down after 15 units of basal yesterday. 05/14 * BSGs somewhat erratic over last 24 hours. Overall trend is downwards however over last 12 hours * Evening BSG drawn 3 minutes apart last evening, BSG 51 on 1st check followed by 96 on second check. Reliability of result is in question. * Given overall downward trends in BSGs however, will reduce both basal and prandial insulin doses * Notable changes today: stopping heparin gtt (mixed in D5W), Novasource Renal being changed to Peptamen VHP (much lower carb content), D5W added to provide free water 05/13 * BSGs elevated yesterday secondary to addition of dextrose containing IVFs to treat hypernatremia * Upon discontinuation of dextrose IVFs BSGs did improve * 73 units SQ insulin given over last 24 hrs while receiving cont Novasource Renal TFs (currently @40cc/hr) as well as heparin gtt mixed in D5W * BSGs ranging 102-191 over last 24 hrs which is still acceptable. Plan to continue similar insulin doses today. 05/12 * BSGs reasonably well-controlled yesterday * Received 45 units of insulin yesterday (20 units of Lantus and 25 units of prandial/correctional bolus) * BSGs elevated so far today > 200 mg/dL, likely related to reduced basal dose yesterday in addition to dextrose-containing IV fluids * Will plan to stick with SC basal/bolus insulin for now, but will start IV insulin infusion if BSGs continue to worsen at 1600 * Novasource renal at 40 mL/hr (29 g CHO q4h) 05/10 * Patient remains critically ill - goal BSG 140-180 mg/dL * BSG's increased yesterday above goal, likely 2nd reduced dose of Lantus in PM on 05/08 and AM on 05/09. Lantus increased last night and again this AM, back to previous regimen. Although this regimen may have contributed to hypoglycemia on 05/08, D5 fluids are infusing at this time * Will tighten correction factor as it was insufficient yesterday to manage BSG's PLAN FOR INPATIENT GLYCEMIC CONTROL: * Hold outpatient diabetes medications (metformin, Trulicity) * Lantus 10units qAM, HS scale * Bolus insulin * NovoLog Q 4 hrs to cover carbs in tube feeds * Goal range: 120-140 mg/dL * Correction factor: 18 mg/dL/unit * CHO ratio: 6 grams CHO/unit delivered in continuous tube feeds (when running) PLAN FOR DISCHARGE: * see 05/04 note
[2021-05-16 14:41] LABS: BUN Creatinine Ratio 33.1 (10-20); Calcium 7.8 mg/dl (8.5-10.1); Creatinine Clr Calc Pharmacy 86.1 ml/min; Est GFR (African American) 74.3 ml/min; Est GFR (Non-African American) 64.1 ml/min; Potassium 3.5 mmol/L (3.5-5.1)
--- NOTE | 2021-05-16 14:52 | Hospitalist Progress Note ---
Date of Service May 16, 2021 Assessment & Plan (1) Acute respiratory failure with hypoxia: (2) Pneumonia due to 2019 novel coronavirus: Plan: Patient is a 51 yr male with H/O DM type II, HTN, obesity, GERD, HTN, anxiety and FARNAZ on CPAP presented 04/16 for evaluation of shortness of breath. Tested positive for COVID-19 on 04/06. Patient unvaccinated. Acute respiratory failure with hypoxia Pneumonia due to 2019 novel coronavirus Moderate pneumomediastinum: 05/03 CTA chest Unvaccinated state Covid, tested positive on 04/06 Intubated on 04/24 05/01 percutaneous tracheostomy 05/03 tracheostomy leak noted/failed tracheostomy exchange 05/03 Emergent reintubation 05/03 revision tracheostomy in OR --CTA:No pulmonary emboli identified although segmental and subsegmental pulmonary arteries suboptimally assessed due to respiratory motion. Moderate pne umomediastinum. No pneumothorax. Extensive bilateral airspace opacities within the lungs, as described above. Cardiomegaly. Pneumomediastinum and extensive bilateral airspace opacities. Septic shock Currently weaned off pressors Trach secretions cultures grew Enterococcus faecium (resistant to penicillin), parabacteroides distasonis, c. albicans Blood/urine cultures:negative to date Currently on vancomycin and flagyl Appreciate Critical Care Input Continue PT/OT Off pressors On Tube feeds Needs LTAC placement Afebrile today Had Tracheotomy collar trial this morning for brief period Transient Asystole Metoprolol held Monitor No recurrence HTN BP stable Monitor Hypernatremia Free water flushes D5 water as needed Monitor sodium level Sodium level 148 today DM II HbA1C: 9.2 Continue Insulin therapy Monitor BGs Acute Kidney Injury Cr:4.2>2.30>1.67>1.27 Monitor renal function Avoid nephrotoxic agents as able Hypokalemia Hypomagnesemia Replace electrolytes as needed Acute DVT BLE S/P TPA IV Heparin transitioned to Lovenox DVT Px: Lovenox SQ Code Status Full Code Disposition Needs LTAC placement Admission and Anticipated Discharge Date Admission Date: April 16, 2021 Subjective Patient is seen and examined at bedside Was on Trach collar for short period of time this morning Had drainage at tracheostomy site No distress on exam Afebrile today No rhythm issues overnight Review of Systems Review of Systems: Other Physical Exam Physical Exam: Physical Exam: Vitals signs as noted above General Appearance:Moderately built and nourished, no apparent distress Head: normocephalic, Atraumatic, +Trach Eyes: normal inspection, EOMI Neck: supple, Trachea midline Respiratory/Chest: Normal breath sounds, CTA, No accessory muscle use Cardiovascular: S1, S2, No murmur Abdomen/GI:Soft, Non tender, Bowel sounds present Extremities/Musculoskeletal:normal inspection, 1+ B/L LE edema Neurologic/Psych:grossly no focal neurological deficits Skin: normal color, warm Results & Data Results & Data ([facility]) Vital Signs (Past 12 Hours) Vital Signs Temp Pulse Resp BP Pulse Ox 05/16/21 14:00 105 H 34 H 95 05/16/21 13:00 103 H 30 H 140/80 96 05/16/21 12:00 105 H 29 H 148/89 H 97 05/16/21 11:23 98 H 35 H 92 05/16/21 11:00 105 H 32 H 98 05/16/21 10:00 95 H 29 H 146/92 H 96 05/16/21 09:45 31 H 92 05/16/21 09:30 83 L 05/16/21 09:00 93 H 24 141/84 H 97 05/16/21 08:00 101 H 29 H 130/80 93 05/16/21 07:58 99 H 36 H 93 05/16/21 07:00 103 H 34 H 143/83 H 95 05/16/21 06:00 37.5 C 101 H 34 H 161/88 H 93 05/16/21 05:00 37.5 C 94 H 32 H 153/89 H 96 05/16/21 04:00 37.5 C 94 H 31 H 137/85 96 05/16/21 03:30 86 32 H 95 05/16/21 03:00 90 27 H 144/85 H 94 Laboratory Results Short CBC 05/16/21 Range/Units 04:55 WBC 11.04 H (4.8-10.8) K/uL Hgb 8.3 L (14.0-18.0) g/dL Hct 28.2 L (42-52) % Plt Count 254 (130-400) K/uL BMP 05/16/21 05/16/21 04:55 14:01 Sodium 146 H 148 H Potassium 2.8 L 3.5 D Chloride 109 H 113 H Carbon Dioxide 33 H 34 H BUN 48 H 42 H Creatinine 1.30 1.27 Glucose 176 H 157 H Calcium 7.7 L 7.8 L
[2021-05-16] MEDS ORDERED: fentaNYL citrate 100 MCG/2 ML VIAL ONE (15:16)
[2021-05-16] MEDS ORDERED: MIDAZOLAM HCL 5 MG/ML 1 ML VIAL ONE (15:17)
--- NOTE | 2021-05-16 15:53 | Ears,Nose,Throat Progress Note ---
Date of Service May 16, 2021 Assessment & Plan (1) Tracheostomy infection: Plan: I exchanged out the old tracheostomy tube with a new #6 XLT tracheostomy tube. This had to be performed over an exchange catheter through the established fistula. This was performed cautiously due to previous false tract causing pneumomediastinum. This was done successfully. He tolerated procedure well. (2) Respiratory failure: (3) Pneumomediastinum: Admission and Anticipated Discharge Date Admission Date: April 16, 2021 Subjective I was asked to see the patient and exchanged out the tracheostomy tube due to 3 different bacteria growing from the cultures of the tracheal aspirate. Physical Exam Eyes: PERRL, conjunctivae normal, anicteric sclerae ENMT: external ear and nose normal, oropharynx normal Neck: XLT trach in position Respiratory: Ventilator Results & Data ([facility]) Vital Signs (Past 12 Hours) Vital Signs Temp Pulse Resp BP Pulse Ox 05/16/21 15:45 105 H 35 H 91 05/16/21 14:00 105 H 34 H 95 05/16/21 13:00 103 H 30 H 140/80 96 05/16/21 12:00 105 H 29 H 148/89 H 97 05/16/21 11:23 98 H 35 H 92 05/16/21 11:00 105 H 32 H 98 05/16/21 10:00 95 H 29 H 146/92 H 96 05/16/21 09:45 31 H 92 05/16/21 09:30 83 L 05/16/21 09:00 93 H 24 141/84 H 97 05/16/21 08:00 101 H 29 H 130/80 93 05/16/21 07:58 99 H 36 H 93 05/16/21 07:00 103 H 34 H 143/83 H 95 05/16/21 06:00 37.5 C 101 H 34 H 161/88 H 93 05/16/21 05:00 37.5 C 94 H 32 H 153/89 H 96 05/16/21 04:00 37.5 C 94 H 31 H 137/85 96
[2021-05-16] MEDS ORDERED: fentaNYL citrate 100 MCG/2 ML VIAL IV ONE (15:56)
--- NOTE | 2021-05-16 16:04 | XRay Report ---
XR chest 1V portable CLINICAL HISTORY: To evaluate trach change. Follow-up diffuse interstitial and alveolar opacities COMPARISON STUDY: 05/15/2021 TECHNIQUE: 1 view of the chest FINDINGS: Single frontal view of the chest demonstrates the cardiomediastinal silhouette to be within normal li mits. There is evidence for a new tracheostomy tube in anatomic position. Enteric tube remains in farhan ce. Bilateral interstitial and alveolar opacities are again seen bilaterally and unchanged. There is again suspicion of a small left pleural effusion. There is no evidence for vascular congestion. There is no acute osseous pathology. IMPRESSION: Reported new tracheostomy tube in anatomic position. No change in diffuse interstitial an d alveolar opacities and probable small left pleural effusion. ACT 112: Negative or not required by law. Electronically signed by: Valdo Marina M.D. 05/16/2021 4:02 PM
[2021-05-16] MEDS: SACCHAROMYCES BOULARDII 250 MG CAP PO SCH (16:23)
[2021-05-16] MEDS: ICU ELECTROLYTE REPLACEMENT PROTOCOL SCH (16:35)
[2021-05-16] MEDS ORDERED: SODIUM PHOSPHATE 3 MMOL/1 ML INFUSION IV STA (16:43)
[2021-05-16] MEDS: POTASSIUM CHLORIDE 20 MEQ/15 ML UDC NG SCH ×2 (17:29→20:19)
[2021-05-16] MEDS ORDERED: SODIUM PHOSPHATE 15 MMOL in DEXTROSE 5% 250 ML IV ONE (17:30)
[2021-05-16] MEDS: VANCOMYCIN HCL 1,250 MG in SODIUM CHLORIDE 0.9% 250 ML IV SCH (20:19)
[2021-05-17] MEDS: MAGNESIUM SULFATE / D5W 1 GM/100 ML BAG IV SCH (00:07)
[2021-05-17] MEDS: INSULIN ASPART PER UNIT SC SCH ×6 (00:13→20:47)
[2021-05-17] MEDS: TUBE FEEDING WATER FLUSH NG SCH ×6 (03:51→22:35)
[2021-05-17 05:02] LABS: Hematocrit (blood only) 27.6 % (42-52); Hemoglobin 8.7 g/dL (14.0-18.0); Mean Corpuscular Hemoglobin 30.9 pg (25-34); Mean Corpuscular Hgb Conc 31.5 g/dL (32-36); Mean Corpuscular Volume 97.9 fL (80-100); Mean Platelet Volume 10.5 fL (7.4-10.4); Nucleated RBC # (auto) 0.03 K/uL (0-0); Nucleated RBC % (auto) 0.2 %; Platelet Count 250 K/uL (130-400); RDW Coefficient of Variation 16.6 % (11.5-14.5); RDW Standard Deviation 58.8 fL (36.4-46.3); Red Blood Count 2.82 M/uL (4.7-6.1); White Blood Count 12.35 K/uL (4.8-10.8)
[2021-05-17] MEDS: metroNIDAZOLE 500 MG TAB PO SCH ×3 (05:04→22:35)
[2021-05-17 05:23] LABS: Calcium 7.8 mg/dl (8.5-10.1); Creatinine Clr Calc Pharmacy 84.8 ml/min; Est GFR (African American) 72.9 ml/min; Est GFR (Non-African American) 62.9 ml/min; Magnesium 2.6 mg/dl (1.7-2.4); Phosphorus 2.3 mg/dl (2.5-4.9); Potassium 3.5 mmol/L (3.5-5.1)
[2021-05-17] MEDS ORDERED: POTASSIUM CHLORIDE / WTR 10 MEQ/100 ML PLCT IV STA (05:46)
[2021-05-17] MEDS ORDERED: SODIUM PHOSPHATE 3 MMOL/1 ML INFUSION IV STA ×2 (05:46→06:00)
[2021-05-17] MEDS: ICU ELECTROLYTE REPLACEMENT PROTOCOL SCH ×2 (06:04→19:00)
[2021-05-17] MEDS ORDERED: SODIUM PHOSPHATE 15 MMOL in SODIUM CHLORIDE 0.9% 250 ML IV ONE (06:15)
[2021-05-17] MEDS: POTASSIUM CHLORIDE 20 MEQ/15 ML UDC NG SCH ×2 (06:32→11:47)
[2021-05-17] MEDS ORDERED: VANCOMYCIN TROUGH ONE (07:30)
[2021-05-17] MEDS: ACETAMINOPHEN SUSP 325 MG/10.15 ML UDC OG PRN (07:36)
[2021-05-17] MEDS: MULTI VIT W/MINERALS LIQUID 15 ML UDP PO SCH (07:45)
[2021-05-17] MEDS: LANSOPRAZOLE 30 MG SOLTAB NG SCH (07:45)
[2021-05-17] MEDS: SACCHAROMYCES BOULARDII 250 MG CAP PO SCH (07:45)
[2021-05-17] MEDS: INSULIN GLARGINE SOLOSTAR 100 UNITS/ML 3 ML PEN SC SCH ×2 (07:50→20:48)
[2021-05-17] MEDS: VANCOMYCIN HCL 1,250 MG in SODIUM CHLORIDE 0.9% 250 ML IV SCH (07:51)
[2021-05-17] MEDS ORDERED: ACETAMINOPHEN SUSP 325 MG/10.15 ML UDC OG PRN (10:23)
--- NOTE | 2021-05-17 11:15 | Critical Care Progress Note ---
Date of Service May 17, 2021 Assessment & Plan (1) Acute respiratory failure with hypoxia: (2) Pneumonia due to 2019 novel coronavirus: (3) Obesity: (4) Anxiety: (5) DVT of axillary vein, acute bilateral: (6) Pneumomediastinum: (7) HTN (hypertension): (8) Hypernatremia: (9) Tracheostomy infection: Plan: Reason Critically Ill: Acute hypoxic respiratory failure secondary to COVID-19 pneumonia PLAN: Neuro: Following commands. Remains weak. PT/OT. CT head 05/08/2021: Chronic microvascular changes but no acute stroke. Sinusitis seen. Resp: --Hypoxic respiratory failure secondary to multilobar COVID-19 pneumonia Patient status post percutaneous tracheostomy placement 05/02/21. ENT performed a trach revision 05/03. Purulent discharge noted around tracheostomy. Trach downsized to a size 6 XLT 05/16 by ENT, but there now is a trach leak. Will be taken to the OR today for revision and placement of a larger trach. Remains on pressure support and unable to tolerate tracheostomy collar trials due to increased work of breathing and hypoxia. CT chest 05/08/21: Diffuse opacities appreciated bilaterally, improved from before. Mild pneumomediastinum also appreciated --Pneumomediastinum --> improving CV: We will restart low-dose metoprolol 12.5 twice daily due to tachycardia Off vasopressors Lower extremity arterial ultrasound of the right leg 05/01 without arterial occlusion or hemodynamically significant stenosis. Keep potassium around 4, magnesium greater than 2, phosphorus around 3 Fluids/Renal: --ZEN Improving. Hypernatremia improving as well. Continue to aggressively replete potassium, magnesium and phosphorus. Electrolyte protocol ordered. ID: Fever curve improving. Culture from around the trach site 05/07/2021: Enterococcus faecium resistant to penicillin, parabacteroides, fiordaliza. Sensitive to vancomycin -> started 05/10/2021. Flagyl started 05/13/21. Will treat for 10 days. C. difficile stool studies negative. Pro-Tomás unremarkable. Repeat urine and blood cultures from 05/14 -. Afebrile for 48 hours. Sputum cultures from 05/02 - thus far. Unasyn changed to Zosyn to 05/08/21 and completed total course of 7 days for sinusitis earlier in the hospitalization GI/Nutrition: GI note from 05/18/21 reviewed indicating that PEG would be difficult in this patient given ventral mesh placement and malrotation. CT abdomen pelvis 05/08/21: Dilated bowel loops likely presenting ileus. No clear obstruction seen. No evidence of hematoma. Heme: Acute DVT s/p tpa earlier in hospital course. Hgb stable --New onset thrombocytopenia --> resolved Endocrine: ICU hyperglycemia protocol --Prophylaxis VTE: Therapeutic Lovenox GI: Lansoprazole Lines: Left arm PICC 05/07/2021, trach revision 05/03 Diet: Tube feeds I have personally spent 32 minutes of critical care time in the direct management of this patient. This is a life/limb threatening event. This includes time spent evaluating patient, direct bedside care, chart review, placing orders, interpretation of diagnostic studies, discussion with consultants, patient, and family members, as well as other required patient management activities. This time is exclusive of all separately billable procedures, and teaching time and separate from and in addition to any other critical care service time. Admission and Anticipated Discharge Date Admission Date: April 16, 2021 Subjective Patient seen and examined. Stable with no acute events overnight. Has a tracheostomy leak. Discussed with ENT who plans to take the patient back to the OR and upsized trach again from a size 6 XLT to a size 8. Patient's updated over the phone and informed that transfer to LTAC will be delayed until tomorrow most likely. Review of Systems Review of Systems: All systems reviewed & are unremarkable except as noted in HPI & below Physical Exam Physical Exam: Physical Exam: Vitals signs as noted above General Appearance:Moderately built and nourished, no apparent distress Head: normocephalic, Atraumatic, +Trach Eyes: normal inspection, EOMI Neck: supple, Trachea midline Respiratory/Chest: Normal breath sounds, CTA, No accessory muscle use Cardiovascular: S1, S2, No murmur Abdomen/GI:Soft, Non tender, Bowel sounds present Extremities/Musculoskeletal:normal inspection, 1+ B/L LE edema Neurologic/Psych:grossly no focal neurological deficits Skin: normal color, warm Results & Data Results & Data ([facility]) Vital Signs (Past 12 Hours) Vital Signs Temp Pulse Resp BP Pulse Ox 05/17/21 10:00 107 H 34 H 150/90 H 88 L 05/17/21 09:00 115 H 33 H 144/89 H 93 02/11/22 08:05 37.8 C H 05/17/21 08:00 104 H 35 H 154/95 H 89 L 05/17/21 07:50 35 H 05/17/21 07:40 108 H 34 H 91 05/17/21 07:00 110 H 32 H 162/98 H 94 05/17/21 04:56 37.7 C H 05/17/21 04:00 106 H 31 H 148/88 H 92 05/17/21 03:40 101 H 31 H 94 05/17/21 03:00 108 H 34 H 119/91 91 05/17/21 02:00 109 H 34 H 153/95 H 92 05/17/21 01:00 107 H 33 H 159/93 H 93 05/17/21 00:00 37.5 C 94 H 29 H 139/86 93 05/16/21 23:45 112 H 32 H 93 Coding Level of Care Code Critical Care 1st 30-74 mins Diagnoses Acute respiratory failure with hypoxia J96.01 Pneumonia due to 2019 novel coronavirus U07.1; J12.82 Obesity E66.9 Anxiety F41.9 DVT of axillary vein, acute bilateral I82.A13 Pneumomediastinum J98.2 HTN (hypertension) I10 Hypernatremia E87.0 Tracheostomy infection J95.02 Time Spent (min) 32
[2021-05-17] MEDS: ENOXAPARIN INJ 120 MG/0.8 ML SYR SQ SCH ×2 (11:48→22:35)
[2021-05-17] MEDS ORDERED: fentaNYL citrate 100 MCG/2 ML VIAL ONE (12:56)
--- NOTE | 2021-05-17 12:57 | Pharmacy Report ---
Pharmacy Vanc AUC Short Note - Date of Service May 17, 2021 - Assessment & Plan Assessment 51 year old M receiving vancomycin and metronidazole for treatment of trach site infection. Trach site culture (+) E. faecium, Gayla, and parabacteroides. Renal function stable the last 24 hours (1.3 -->1.29). Day #8/10 of antimicrobial therapy. Plan Vancomycin * Vanc trough this AM 20.2mcg/mL and drawn appropriately, slightly supratherapeutic. * Change to 1500 mg IV every 18 hours * Trough level of 15.2 mcg/mL is predicted to achieve target AUC/GABRIEL of 400-600 mg/L.hr and may be associated with a 10 % risk of nephrotoxicity Pharmacy will continue to follow and will adjust dose/frequency as necessary. Thank you.
--- NOTE | 2021-05-17 13:00 | Anesthesiology Consultation ---
Date of Service May 17, 2021 Assessment & Plan (1) Encounter for pre-operative examination: Chart Review Chart Review: Acceptable Risk for Surgery History Surgery Operation Date: 05/03/21 10:30 Proposed Procedures p Tracheostomy - Fannie Stein MD Operation Date: 05/03/21 12:15 Proposed Procedures p Trach Change Possible Revision - Fannie Stein MD Operation Date: 05/17/21 11:20 Proposed Procedures p Tracheostomy Change - Fannie Stein MD Height/Weight Height: 6 ft Weight: 109.9 kg Allergies Allergy/AdvReac Type Severity Reaction Status Date / Time methylparaben Allergy Mild ITCHING Verified 05/12/21 13:35 oxymorphone Allergy Mild ITCHING Verified 05/12/21 13:35 Medications Home Medications Medication Instructions Recorded Confirmed Last Taken metformin 1,000 mg tablet 1,000 mg PO BIDWMEAL #0 tab 05/04/12 04/16/21 Unknown acetaminophen 650 mg tablet 650 mg PO Q4H PRN #0 tab 10/22/12 04/16/21 Unknown albuterol sulfate 90 mcg/actuation 2 puff INHALATION Q4H PRN 04/16/21 04/16/21 Unknown aerosol inhaler dulaglutide 3 mg/0.5 mL 3 mg SUBCUT WK 04/16/21 04/16/21 Unknown subcutaneous pen injector (Trulicity) hydrochlorothiazide 25 mg tablet 25 mg PO DAILY 04/16/21 04/16/21 Unknown omeprazole 20 mg capsule,delayed 20 mg PO DAILY 04/16/21 04/16/21 Unknown release prednisone 10 mg tablet 10 mg PO UD 04/16/21 04/16/21 Unknown testosterone cypionate 200 mg/mL 200 mg IM UD 04/16/21 04/16/21 Unknown intramuscular oil Active Medications Generic Name Dose Route Start Last Admin Trade Name Freq PRN Reason Stop Dose Admin Acetaminophen 650 mg 04/24/21 22:24 05/08/21 00:16 Acetaminophen 650 Mg Supp UT 05/24/21 22:23 650 mg Q4H PRN Administration Pain or Fever Enoxaparin Sodium 111 mg 05/14/21 11:00 05/17/21 11:48 Enoxaparin Inj 120 Mg/0.8 Ml Syr SQ 06/13/21 10:59 111 mg Q12H PHYLLIS Administration Heparin Sodium (Beef Lung) 5 ml 05/10/21 23:54 05/12/21 09:05 Heparin 10 Unit/Ml 5 Ml Flush FLUSH 06/09/21 23:53 5 ml PRN PRN Administration Flush Insulin Aspart 0 units 05/05/21 08:00 05/17/21 07:49 Insulin Aspart Per Unit SC 06/04/21 07:59 1 units Q4 [facility] Administration Protocol Insulin Glargine 10 units 05/16/21 08:00 05/17/21 07:50 Insulin Glargine Solostar 100 Units/Ml 3 Ml Pen SC 06/13/21 07:59 10 units DAILY@0800 [facility] Administration Protocol Insulin Glargine 0 units 05/15/21 20:00 05/16/21 20:15 Insulin Glargine Solostar 100 Units/Ml 3 Ml Pen SC 06/14/21 19:59 5 units DAILY@2000 [facility] Administration Protocol Lansoprazole 30 mg 05/08/21 09:00 05/17/21 07:45 Lansoprazole 30 Mg Soltab NG 06/07/21 08:59 30 mg DAILY PHYLLIS Administration Metoprolol Tartrate 12.5 mg 05/13/21 21:00 05/15/21 09:56 Metoprolol Tartrate 25 Mg Tab PO 06/12/21 20:59 Not Given BID [facility] Metronidazole 500 mg 05/13/21 14:00 05/17/21 05:04 Metronidazole 500 Mg Tab PO 05/20/21 13:59 500 mg Q8 [facility] Administration Miscellaneous 1 ea 05/16/21 18:00 05/17/21 06:04 Icu Electrolyte Replacement Protocol N/A 05/23/21 17:59 1 ea BID@18 [facility] Administration Protocol Multivitamins/Minerals 15 ml 05/15/21 09:00 05/17/21 07:45 Multi Vit W/Minerals Liquid 15 Ml Udp PO 06/14/21 08:59 15 ml QAM [facility] Administration Nutritional Formula 1,000 ml 05/14/21 10:30 05/16/21 07:54 Peptamen Intense Vhp 1.0 Tomás 1,000 Ml Bag OG 06/13/21 10:29 1,000 ml UD [facility] Administration Protocol Saccharomyces Boulardii 250 mg 05/16/21 13:15 05/17/21 07:45 Saccharomyces Boulardii 250 Mg Cap PO 06/15/21 13:14 250 mg DAILY PHYLLIS Administration Sterile Water 250 ml 05/17/21 10:01 05/17/21 11:47 Tube Feeding Water Flush NG 06/16/21 10:00 250 ml Q4H [facility] Administration NPO Date Last Intake of Fluids: 05/03/21 Time Last Intake of Fluids: 11:00 Last Intake of Fluids Comment: pt has NG with tube feeds Date Last Intake of Solids: 05/03/21 Time Last Intake of Solids: 10:45 Last Intake of Solids Comment: Tube feeding Past Medical History Medical History (Updated 05/17/21 @ 12:58 by Immanuel Ji MD) Anemia Constipation COVID-19 DM type 2 (diabetes mellitus, type 2) HTN (hypertension) Hypernatremia Hypernatremia Obesity FARNAZ on CPAP Pneumomediastinum Tracheostomy infection Past Family History Family History Father Diabetes Hypertension Past Surgical History Surgical History (Updated 05/17/21 @ 12:57 by Immanuel Ji MD) H/O laminectomy x 2 History of appendectomy Hx of tracheostomy Social History Smoking Status: Never smoker Do You Dip or Chew Tobacco: No Hx Alcohol Use: Yes Alcohol type: beer alcohol intake frequency: holidays/special occasions only Hx Substance Use: No Physical Exam Vital Signs Last Vital Signs Temp 38 C H 05/17/21 12:25 Pulse 112 H 05/17/21 12:25 Resp 38 H 05/17/21 12:00 BP 131/91 05/17/21 12:25 Pulse Ox 93 05/17/21 12:25 Testing Laboratory Results 05/17/21 04:24 05/17/21 04:24 PT 10.3 Seconds (9.0-12.0) 05/12/21 14:05 INR 1.0 (0.9-1.1) 05/12/21 14:05 APTT 41.4 Seconds (21.0-31.0) H 05/14/21 04:13 Hemoglobin A1c 9.2 % (4.5-5.6) H 04/17/21 07:27 Urine Color Yellow 05/14/21 14:20 Urine Appearance Cloudy (Clear) A 05/14/21 14:20 Urine pH 5.5 (4.5-7.5) 05/14/21 14:20 Ur Specific Alden 1.017 (1.000-1.030) 05/14/21 14:20 Urine Protein 1+ (Negative) H 05/14/21 14:20 Urine Glucose (UA) Trace (Negative) H 05/14/21 14:20 Urine Ketones Negative (Negative) 05/14/21 14:20 Urine Nitrite Negative (Negative) 05/14/21 14:20 Ur Leukocyte Esterase 1+ (Negative) H 05/14/21 14:20 Urine WBC (Auto) 10-30 /hpf (0-5) H 05/14/21 14:20 Urine RBC (Auto) 5-10 /hpf (0-4) H 05/14/21 14:20 U Hyaline Cast (Auto) 1-5 /lpf (0-5) 05/14/21 14:20 U Epithel Cells (Auto) >30 /lpf (0-5) H 05/14/21 14:20 Urine Bacteria (Auto) Negative (Negative) 05/14/21 14:20 Blood Type O Positive 04/25/21 11:47 Antibody Screen NEGATIVE 04/25/21 11:47 05/14/21 12:01 Aerobic Blood Culture - Preliminary Blood No growth in Aerobic bottle after 48 hours. Anaerobic Blood Culture - Preliminary No growth in Anaerobic bottle after 48 hours. 05/14/21 11:57 Aerobic Blood Culture - Preliminary Blood No growth in Aerobic bottle after 48 hours. Anaerobic Blood Culture - Final 05/14/21 14:20 Urine Culture - Final Urine,Clean Catch Yeast 05/08/21 11:04 Gram Stain - Final Neck Deep Wound Culture - Final Enterococcus faecium Gayla albicans/dubliniensis Parabacteroides (B) distasonis 05/07/21 05:47 Aerobic Blood Culture - Final Blood No growth in Aerobic bottle after 5 days. Anaerobic Blood Culture - Final No growth in Anaerobic bottle after 5 days. 05/07/21 05:42 Aerobic Blood Culture - Final Blood No growth in Aerobic bottle after 5 days. Anaerobic Blood Culture - Final No growth in Anaerobic bottle after 5 days. 04/25/21 10:40 Fungal Smear - Final Blood Fungal Culture - Preliminary No yeast or fungus isolated - Report 3, Additional report to follow. 05/08/21 11:04 Gram Stain - Final Sputum,Trach Sputum Culture - Final Light normal barbara. 05/03/21 14:00 Urine Culture - Final Urine,Clean Catch No growth - less than 1,000 colonies/mL. 05/02/21 15:05 Gram Stain - Final Sputum,Vent Suction Sputum Culture - Final Light normal barbara. 04/25/21 10:47 Aerobic Blood Culture - Final Blood No growth in Aerobic bottle after 5 days. Anaerobic Blood Culture - Final No growth in Anaerobic bottle after 5 days. 04/25/21 10:40 Aerobic Blood Culture - Final Blood No growth in Aerobic bottle after 5 days. Anaerobic Blood Culture - Final No growth in Anaerobic bottle after 5 days. 04/24/21 17:15 Gram Stain - Final Sputum, Expectorated Sputum Culture - Final Heavy normal barbara. 04/16/21 12:05 Aerobic Blood Culture - Final Blood No growth in Aerobic bottle after 5 days. Anaerobic Blood Culture - Final No growth in Anaerobic bottle after 5 days. 04/16/21 11:42 Aerobic Blood Culture - Final Blood No growth in Aerobic bottle after 5 days. Anaerobic Blood Culture - Final No growth in Anaerobic bottle after 5 days. 05/17/21 05/17/21 05/17/21 12:09 07:28 03:58 POC Glucose 179 H 136 H 170 H Electrocardiogram Date: 05/15/21 Findings: + NSST changes and + ST @ (103) prolonged QT Chest X-Ray Date: 05/16/21 no change in diffuse interstitial / alveolar opacities
[2021-05-17] MEDS ORDERED: MIDAZOLAM HCL 1 MG/ML 2ML VIAL ONE (13:05)
[2021-05-17] MEDS ORDERED: LIDOCAINE 2%/EPINEPHRINE 1:100,000 20ML ONE ×2 (13:06→13:43)
[2021-05-17] MEDS ORDERED: LIDOCAINE 2% LOCAL 50 ML VIAL ONE (13:07)
--- NOTE | 2021-05-17 13:14 | Pharmacy Report ---
Pharmacy Glycemic Short Note 2 - Date of Service May 17, 2021 - Glycemic Short BSG Results (Last 24 hours): 05/16/21 05/16/21 05/16/21 14:01 16:17 16:21 Glucose 157 H POC Glucose 168 H 138 H 05/16/21 05/17/21 05/17/21 20:11 00:11 03:58 Glucose POC Glucose 170 H 159 H 170 H 05/17/21 05/17/21 05/17/21 04:24 07:28 12:09 Glucose 153 H POC Glucose 136 H 179 H OUTPATIENT ANTIDIABETIC REGIMEN: * Metformin 1000 mg PO BID * Dulaglutide 3 mg SQ weekly on Thu * A1c: 9.2% (04/17/21) ASSESSMENT: 05/17 * BSGs today: 170-136-179. Received 15 units of basal yesterday and 29units of prandial insulin. * Peptamen increased to 60mL/hr. Continues on vancomycin/flagyl. * Plan for 10 units BID of Lantus today given BSGs trending into higher 160s- 170s. No change to Novolog for now - may need to tighten tomorrow. 05/16: * BSGs well controlled the last 24h. * Peptamen continues @ goal. D5W discontinued today. * Novolog loosened slightly given dextrose d/c'd and BSGs down-trending below goal last evening. No change to basal insulin today - will leave HS scale tonight given D5 cut. 05/15 * BSGs largely within goal over last 24 hours. * Peptamen VHP continues @ goal. D5W continues @ 70ml/hr. * No changes to prandial insulin today. Plan for 10 units AM Lantus and HS Lantus scale given BSGs have trended down after 15 units of basal yesterday. 05/14 * BSGs somewhat erratic over last 24 hours. Overall trend is downwards however over last 12 hours * Evening BSG drawn 3 minutes apart last evening, BSG 51 on 1st check followed by 96 on second check. Reliability of result is in question. * Given overall downward trends in BSGs however, will reduce both basal and prandial insulin doses * Notable changes today: stopping heparin gtt (mixed in D5W), Novasource Renal being changed to Peptamen VHP (much lower carb content), D5W added to provide free water 05/13 * BSGs elevated yesterday secondary to addition of dextrose containing IVFs to treat hypernatremia * Upon discontinuation of dextrose IVFs BSGs did improve * 73 units SQ insulin given over last 24 hrs while receiving cont Novasource Renal TFs (currently @40cc/hr) as well as heparin gtt mixed in D5W * BSGs ranging 102-191 over last 24 hrs which is still acceptable. Plan to continue similar insulin doses today. 05/12 * BSGs reasonably well-controlled yesterday * Received 45 units of insulin yesterday (20 units of Lantus and 25 units of prandial/correctional bolus) * BSGs elevated so far today > 200 mg/dL, likely related to reduced basal dose yesterday in addition to dextrose-containing IV fluids * Will plan to stick with SC basal/bolus insulin for now, but will start IV insulin infusion if BSGs continue to worsen at 1600 * Novasource renal at 40 mL/hr (29 g CHO q4h) PLAN FOR INPATIENT GLYCEMIC CONTROL: * Hold outpatient diabetes medications (metformin, Trulicity) * Lantus 10units BID * Bolus insulin * NovoLog Q 4 hrs to cover carbs in tube feeds * Goal range: 120-140 mg/dL * Correction factor: 18 mg/dL/unit * CHO ratio: 6 grams CHO/unit delivered in continuous tube feeds (when running) PLAN FOR DISCHARGE: * see 05/04 note
--- NOTE | 2021-05-17 18:30 | Hospitalist Progress Note ---
Date of Service May 17, 2021 Assessment & Plan (1) Acute respiratory failure with hypoxia: (2) Pneumonia due to 2019 novel coronavirus: Plan: Patient is a 51 yr male with H/O DM type II, HTN, obesity, GERD, HTN, anxiety and FARNAZ on CPAP presented 04/16 for evaluation of shortness of breath. Tested positive for COVID-19 on 04/06. Patient unvaccinated. Acute respiratory failure with hypoxia Pneumonia due to 2018 novel coronavirus Moderate pneumomediastinum: 05/03 CTA chest Unvaccinated state Covid, tested positive on 04/06 Intubated on 04/24 05/01 percutaneous tracheostomy 05/03 tracheostomy leak noted/failed tracheostomy exchange 05/03 Emergent reintubation 05/03 revision tracheostomy in OR --CTA:No pulmonary emboli identified although segmental and subsegmental pulmonary arteries suboptimally assessed due to respiratory motion. Moderate pne umomediastinum. No pneumothorax. Extensive bilateral airspace opacities within the lungs, as described above. Cardiomegaly. Pneumomediastinum and extensive bilateral airspace opacities. Septic shock Currently weaned off pressors Trach secretions cultures grew Enterococcus faecium (resistant to penicillin), parabacteroides distasonis, c. albicans Blood/urine cultures:negative to date Currently on vancomycin and flagyl Appreciate Critical Care Input Continue PT/OT Off pressors On Tube feeds--held for procedure tomorrow Needs LTAC placement--likely tomorrow febrile today Trach leak today: Planned for upsizing tracheostomy tube tomorrow by ENT Patient is on pressure support and was unable to tolerate tracheostomy collar trials Transient Asystole Metoprolol held Monitor No recurrence HTN BP stable Monitor Hypernatremia Free water flushes D5 water as needed Monitor sodium level Sodium level 148 today DM II HbA1C: 9.2 Continue Insulin therapy Monitor BGs Acute Kidney Injury Cr:4.2>2.30>1.67>1.2 Monitor renal function Avoid nephrotoxic agents as able Hypokalemia Hypomagnesemia Replace electrolytes as needed Acute DVT BLE S/P TPA IV Heparin transitioned to Lovenox DVT Px: Lovenox SQ Code Status Full Code Disposition Needs LTAC placement Admission and Anticipated Discharge Date Admission Date: April 16, 2021 Subjective Patient is seen and examined at bedside Afebrile today Patient had Trach leak Planned for upsizing trach tomorrow Updated Patient's over the phone Repeat blood cultures remain negative Review of Systems Review of Systems: All systems reviewed & are unremarkable except as noted in Subjective Physical Exam Physical Exam: Physical Exam: Vitals signs as noted above General Appearance:Moderately built and nourished, no apparent distress Head: normocephalic, Atraumatic, +Trach Eyes: normal inspection, EOMI Neck: supple, Trachea midline Respiratory/Chest: Normal breath sounds, CTA, No accessory muscle use Cardiovascular: S1, S2, No murmur Abdomen/GI:Soft, Non tender, Bowel sounds present Extremities/Musculoskeletal:normal inspection, 1+ B/L LE edema, RUE limited ROM, Fingers loss/inability to extend-chronic Neurologic/Psych:grossly no focal neurological deficits Skin: normal color, warm Results & Data Results & Data ([facility]) Vital Signs (Past 12 Hours) Vital Signs Temp Pulse Pulse Resp BP BP Pulse Ox 05/17/21 17:40 28 H 05/17/21 17:00 116 H 37 H 151/91 H 89 L 05/17/21 16:16 38.2 C H 05/17/21 16:00 114 H 25 H 88 L 05/17/21 15:30 119 H 30 H 91 05/17/21 15:00 122 H 44 H 143/94 H 88 L 05/17/21 14:00 115 H 29 H 153/93 H 90 05/17/21 13:00 111 H 35 H 147/91 H 91 05/17/21 12:25 38 C H 112 H 131/91 93 05/17/21 12:23 38.0 C H 05/17/21 12:00 118 H 38 H 131/91 93 05/17/21 11:30 111 H 32 H 91 05/17/21 11:00 105 H 32 H 139/87 89 L 05/17/21 10:00 107 H 34 H 150/90 H 88 L 05/17/21 09:00 115 H 33 H 144/89 H 93 05/17/21 08:05 37.8 C H 05/17/21 08:00 104 H 35 H 154/95 H 89 L 05/17/21 07:50 35 H 05/17/21 07:40 108 H 34 H 91 05/17/21 07:00 110 H 32 H 162/98 H 94 Laboratory Results Short CBC 05/17/21 Range/Units 04:24 WBC 12.35 H (4.8-10.8) K/uL Hgb 8.7 L (14.0-18.0) g/dL Hct 27.6 L (42-52) % Plt Count 250 (130-400) K/uL BMP 05/17/21 04:24 Sodium 148 H Potassium 3.5 Chloride 113 H Carbon Dioxide 31 BUN 40 H Creatinine 1.29 Glucose 153 H Calcium 7.8 L
[2021-05-17] MEDS: METOPROLOL TARTRATE 25 MG TAB PO SCH (21:23)
[2021-05-18] MEDS: INSULIN ASPART PER UNIT SC SCH ×6 (01:04→20:08)
[2021-05-18] MEDS: TUBE FEEDING WATER FLUSH NG SCH ×6 (01:05→21:07)
[2021-05-18] MEDS: VANCOMYCIN HCL 1,500 MG in SODIUM CHLORIDE 0.9% 500 ML IV SCH ×2 (04:19→21:06)
[2021-05-18] MEDS ORDERED: ALTEPLASE, RECOMBINANT 1 MG/ML 2ML VIAL INSTIL ONE (05:56)
[2021-05-18] MEDS: metroNIDAZOLE 500 MG TAB PO SCH ×3 (06:05→21:06)
[2021-05-18 06:27] LABS: Basophils # (auto) 0.01 K/uL (0-0.2); Basophils % (auto) 0.1 %; Eosinophils # (auto) 0.13 K/uL (0-0.5); Hematocrit (blood only) 26.4 % (42-52); Immature Granulocytes # (auto) 0.19 K/uL (0.00-0.02); Immature Granulocytes % (auto) 1.5 %; Lymphocytes # (auto) 0.64 K/uL (1.2-3.4); Lymphocytes % (auto) 4.9 %; Mean Corpuscular Hemoglobin 29.9 pg (25-34); Mean Corpuscular Hgb Conc 30.3 g/dL (32-36); Mean Corpuscular Volume 98.5 fL (80-100); Mean Platelet Volume 10.4 fL (7.4-10.4); Monocytes # (auto) 0.45 K/uL (0.11-0.59); Monocytes % (auto) 3.5 %; Neutrophils # (auto) 11.62 K/uL (1.4-6.5); Platelet Count 229 K/uL (130-400); RDW Coefficient of Variation 17.5 % (11.5-14.5); RDW Standard Deviation 61.8 fL (36.4-46.3); Red Blood Count 2.68 M/uL (4.7-6.1); White Blood Count 13.04 K/uL (4.8-10.8)
[2021-05-18 06:42] LABS: BUN Creatinine Ratio 34.5 (10-20); Calcium 7.8 mg/dl (8.5-10.1); Creatinine Clr Calc Pharmacy 73.9 ml/min; Est GFR (African American) 61.7 ml/min; Est GFR (Non-African American) 53.3 ml/min; Magnesium 2.1 mg/dl (1.7-2.4); Potassium 3.4 mmol/L (3.5-5.1)
[2021-05-18] MEDS: ICU ELECTROLYTE REPLACEMENT PROTOCOL SCH ×2 (07:22→16:21)
[2021-05-18] MEDS ORDERED: LIDOCAINE 2% 2 ML VIAL/AMP(20MG/ML) INFIL ONE (07:24)
[2021-05-18] MEDS ORDERED: fentaNYL citrate 100 MCG/2 ML VIAL ONE (07:24)
[2021-05-18] MEDS ORDERED: MIDAZOLAM HCL 1 MG/ML 2ML VIAL ONE (07:24)
[2021-05-18] MEDS ORDERED: PROPOFOL IV EMULSION 10 MG/ML 20 ML VIAL IV ONE (07:24)
--- NOTE | 2021-05-18 07:38 | Anesthesiology Consultation ---
Date of Service May 18, 2021 Assessment & Plan ASA ASA4 Proposed Anesthesia Anesthesia Type: General Risk / Benefits Reviewed With: PT / POA / Parent / Guardian, Accepts Plan and Informed Consent Obtained History Surgery Operation Date: 05/03/21 10:30 Proposed Procedures p Tracheostomy - Fannie Stein MD Operation Date: 05/03/21 12:15 Proposed Procedures p Trach Change Possible Revision - Fannie Stein MD Operation Date: 05/18/21 07:30 Proposed Procedures p Tracheostomy Change - Fannie Stein MD Height/Weight Height: 6 ft Weight: 109.8 kg Allergies Allergy/AdvReac Type Severity Reaction Status Date / Time methylparaben Allergy Mild ITCHING Verified 05/12/21 13:35 oxymorphone Allergy Mild ITCHING Verified 05/12/21 13:35 Medications Home Medications Medication Instructions Recorded Confirmed Last Taken metformin 1,000 mg tablet 1,000 mg PO BIDWMEAL #0 tab 05/04/12 04/16/21 Unknown acetaminophen 650 mg tablet 650 mg PO Q4H PRN #0 tab 10/22/12 04/16/21 Unknown albuterol sulfate 90 mcg/actuation 2 puff INHALATION Q4H PRN 04/16/21 04/16/21 Unknown aerosol inhaler dulaglutide 3 mg/0.5 mL 3 mg SUBCUT WK 04/16/21 04/16/21 Unknown subcutaneous pen injector (Trulicity) hydrochlorothiazide 25 mg tablet 25 mg PO DAILY 04/16/21 04/16/21 Unknown omeprazole 20 mg capsule,delayed 20 mg PO DAILY 04/16/21 04/16/21 Unknown release prednisone 10 mg tablet 10 mg PO UD 04/16/21 04/16/21 Unknown testosterone cypionate 200 mg/mL 200 mg IM UD 04/16/21 04/16/21 Unknown intramuscular oil Active Medications Generic Name Dose Route Start Last Admin Trade Name Freq PRN Reason Stop Dose Admin Acetaminophen 650 mg 04/24/21 22:24 05/08/21 00:16 Acetaminophen 650 Mg Supp WI 05/24/21 22:23 650 mg Q4H PRN Administration Pain or Fever Enoxaparin Sodium 111 mg 05/14/21 11:00 05/17/21 22:35 Enoxaparin Inj 120 Mg/0.8 Ml Syr SQ 06/13/21 10:59 111 mg Q12H PHYLLIS Administration Heparin Sodium (Beef Lung) 5 ml 05/10/21 23:54 05/12/21 09:05 Heparin 10 Unit/Ml 5 Ml Flush FLUSH 06/09/21 23:53 5 ml PRN PRN Administration Flush Vancomycin HCl 1,500 mg/ 530 mls @ 200 mls/hr 05/18/21 04:00 05/18/21 06:40 Sodium Chloride IV 05/25/21 03:59 0 mls/hr Q18H PHYLLIS Infusion Insulin Aspart 0 units 05/05/21 08:00 05/18/21 04:17 Insulin Aspart Per Unit SC 06/04/21 07:59 2 units Q4 PHYLLIS Administration Protocol Insulin Glargine 10 units 05/17/21 20:00 05/17/21 20:48 Insulin Glargine Solostar 100 Units/Ml 3 Ml Pen SC 06/15/21 07:59 10 units 0800,2000 PHYLLIS Administration Protocol Lansoprazole 30 mg 05/08/21 09:00 05/17/21 07:45 Lansoprazole 30 Mg Soltab NG 06/07/21 08:59 30 mg DAILY PHYLLIS Administration Metoprolol Tartrate 12.5 mg 05/13/21 21:00 05/17/21 21:23 Metoprolol Tartrate 25 Mg Tab PO 06/12/21 20:59 12.5 mg BID PHYLLIS Administration Metronidazole 500 mg 05/13/21 14:00 05/18/21 06:05 Metronidazole 500 Mg Tab PO 05/20/21 13:59 500 mg Q8 PHYLLIS Administration Miscellaneous 1 ea 05/16/21 18:00 05/18/21 07:22 Icu Electrolyte Replacement Protocol N/A 05/23/21 17:59 1 ea BID@,18 [facility] Administration Protocol Multivitamins/Minerals 15 ml 05/15/21 09:00 05/17/21 07:45 Multi Vit W/Minerals Liquid 15 Ml Udp PO 06/14/21 08:59 15 ml QAM PHYLLIS Administration Nutritional Formula 1,000 ml 05/14/21 10:30 05/16/21 07:54 Peptamen Intense Vhp 1.0 Tomás 1,000 Ml Bag OG 06/13/21 10:29 1,000 ml UD PHYLLIS Administration Protocol Saccharomyces Boulardii 250 mg 05/16/21 13:15 05/17/21 07:45 Saccharomyces Boulardii 250 Mg Cap PO 06/15/21 13:14 250 mg DAILY PHYLLIS Administration Sterile Water 250 ml 05/17/21 10:01 05/18/21 06:05 Tube Feeding Water Flush NG 06/16/21 10:00 250 ml Q4H PHYLLIS Administration NPO Date Last Intake of Fluids: 05/03/21 Time Last Intake of Fluids: 11:00 Last Intake of Fluids Comment: pt has NG with tube feeds Date Last Intake of Solids: 05/03/21 Time Last Intake of Solids: 10:45 Last Intake of Solids Comment: Tube feeding Past Medical History Medical History (Updated 05/17/21 @ 12:58 by Immanuel Ji MD) Anemia Constipation COVID-19 DM type 2 (diabetes mellitus, type 2) HTN (hypertension) Hypernatremia Hypernatremia Obesity FARNAZ on CPAP Pneumomediastinum Tracheostomy infection Exercise / Class Metabolic Activity II 4-5 Yardwork/Stairs/Walk up hill Past Family History Family History Father Diabetes Hypertension Past Surgical History Surgical History (Updated 05/17/21 @ 12:57 by Immanuel Ji MD) H/O laminectomy x 2 History of appendectomy Hx of tracheostomy Past Anesthesia History No Hx of Anesthesia Complications and No Family Hx of Anesthesia Complications History of PONV No Hx of PONV and No Hx of Motion Sickness Social History Smoking Status: Never smoker Do You Dip or Chew Tobacco: No Hx Alcohol Use: Yes Alcohol type: beer alcohol intake frequency: holidays/special occasions only Hx Substance Use: No Review of Systems denies fever/cough/ colds/ chest pain/ SOB/ FARNAZ denies FARNAZ Physical Exam Vital Signs Last Vital Signs Temp 37.7 C H 05/18/21 04:00 Pulse 106 H 05/18/21 06:00 Resp 30 H 05/18/21 06:00 BP 92/61 L 05/18/21 06:00 Pulse Ox 96 05/18/21 06:00 ENMT Mouth: no TMJ abnormality and no dentition abnormality Thyromental Distance: > or= 3.5 Finger Breadths Mallampati Class: II Neck neck extension not limited Respiratory normal respiratory effort; no respiratory distress Auscultation: lungs clear to auscultation bilaterally Cardiovascular Rate/Rhythm: regular rate and regular rhythm Neurologic moves all extremities Psychiatric Orientation: alert and oriented x 3 Testing Laboratory Results 05/18/21 06:03 05/18/21 06:03 PT 10.3 Seconds (9.0-12.0) 05/12/21 14:05 INR 1.0 (0.9-1.1) 05/12/21 14:05 APTT 41.4 Seconds (21.0-31.0) H 05/14/21 04:13 Hemoglobin A1c 9.2 % (4.5-5.6) H 04/17/21 07:27 Urine Color Yellow 05/14/21 14:20 Urine Appearance Cloudy (Clear) A 05/14/21 14:20 Urine pH 5.5 (4.5-7.5) 05/14/21 14:20 Ur Specific [place] 1.017 (1.000-1.030) 05/14/21 14:20 Urine Protein 1+ (Negative) H 05/14/21 14:20 Urine Glucose (UA) Trace (Negative) H 05/14/21 14:20 Urine Ketones Negative (Negative) 05/14/21 14:20 Urine Nitrite Negative (Negative) 05/14/21 14:20 Ur Leukocyte Esterase 1+ (Negative) H 05/14/21 14:20 Urine WBC (Auto) 10-30 /hpf (0-5) H 05/14/21 14:20 Urine RBC (Auto) 5-10 /hpf (0-4) H 05/14/21 14:20 U Hyaline Cast (Auto) 1-5 /lpf (0-5) 05/14/21 14:20 U Epithel Cells (Auto) >30 /lpf (0-5) H 05/14/21 14:20 Urine Bacteria (Auto) Negative (Negative) 05/14/21 14:20 Blood Type O Positive 04/25/21 11:47 Antibody Screen NEGATIVE 04/25/21 11:47 05/14/21 12:01 Aerobic Blood Culture - Preliminary Blood No growth in Aerobic bottle after 48 hours. Anaerobic Blood Culture - Preliminary No growth in Anaerobic bottle after 48 hours. 05/14/21 11:57 Aerobic Blood Culture - Preliminary Blood No growth in Aerobic bottle after 48 hours. Anaerobic Blood Culture - Final 05/14/21 14:20 Urine Culture - Final Urine,Clean Catch Yeast 05/08/21 11:04 Gram Stain - Final Neck Deep Wound Culture - Final Enterococcus faecium Gayla albicans/dubliniensis Parabacteroides (B) distasonis 05/07/21 05:47 Aerobic Blood Culture - Final Blood No growth in Aerobic bottle after 5 days. Anaerobic Blood Culture - Final No growth in Anaerobic bottle after 5 days. 05/07/21 05:42 Aerobic Blood Culture - Final Blood No growth in Aerobic bottle after 5 days. Anaerobic Blood Culture - Final No growth in Anaerobic bottle after 5 days. 04/25/21 10:40 Fungal Smear - Final Blood Fungal Culture - Preliminary No yeast or fungus isolated - Report 3, Additional report to follow. 05/08/21 11:04 Gram Stain - Final Sputum,Trach Sputum Culture - Final Light normal barbara. 05/03/21 14:00 Urine Culture - Final Urine,Clean Catch No growth - less than 1,000 colonies/mL. 05/02/21 15:05 Gram Stain - Final Sputum,Vent Suction Sputum Culture - Final Light normal barbara. 04/25/21 10:47 Aerobic Blood Culture - Final Blood No growth in Aerobic bottle after 5 days. Anaerobic Blood Culture - Final No growth in Anaerobic bottle after 5 days. 04/25/21 10:40 Aerobic Blood Culture - Final Blood No growth in Aerobic bottle after 5 days. Anaerobic Blood Culture - Final No growth in Anaerobic bottle after 5 days. 04/24/21 17:15 Gram Stain - Final Sputum, Expectorated Sputum Culture - Final Heavy normal barbara. 04/16/21 12:05 Aerobic Blood Culture - Final Blood No growth in Aerobic bottle after 5 days. Anaerobic Blood Culture - Final No growth in Anaerobic bottle after 5 days. 04/16/21 11:42 Aerobic Blood Culture - Final Blood No growth in Aerobic bottle after 5 days. Anaerobic Blood Culture - Final No growth in Anaerobic bottle after 5 days. 05/18/21 05/18/21 05/17/21 04:14 01:02 20:45 POC Glucose 160 H 138 H 171 H Electrocardiogram Date: 05/15/21 Findings: + NSST changes and + ST @ (103) prolonged QT Chest X-Ray Date: 05/16/21 no change in diffuse interstitial / alveolar opacities
--- NOTE | 2021-05-18 07:58 | XRay Report ---
XR chest 1V portable HISTORY: Respiratory failure. COMPARISON: Chest 05/16/2021. FINDINGS: There are low lung volumes. No pneumothorax. Bilateral airspace opacities have progressed. The heart remains enlarged. Suspect trace bilateral pleural effusions. Nasogastric tube terminates be low the diaphragm. Tracheostomy tube appears in good position. A left PICC is curled at the tip and m ay be within the azygos vein. IMPRESSION: 1. Progressive bilateral airspace opacities. This may represent pneumonia and/or superimposed pulmona ry edema. 2. The left hepatic is curled at the tip and may be within the azygos vein. 3. Tracheostomy tube and nasogastric tube appear good position. ACT 112: Negative or not required by law. Electronically signed by: Torres Mchugh M.D. 05/18/2021 7:57 AM
[2021-05-18] MEDS: POTASSIUM CHLORIDE 20 MEQ/15 ML UDC NG SCH ×2 (08:26→11:18)
[2021-05-18] MEDS: MULTI VIT W/MINERALS LIQUID 15 ML UDP PO SCH (08:28)
[2021-05-18] MEDS: METOPROLOL TARTRATE 25 MG TAB PO SCH ×2 (08:28→21:06)
[2021-05-18] MEDS: LANSOPRAZOLE 30 MG SOLTAB NG SCH (08:28)
[2021-05-18] MEDS: SACCHAROMYCES BOULARDII 250 MG CAP PO SCH (08:30)
[2021-05-18] MEDS: INSULIN GLARGINE SOLOSTAR 100 UNITS/ML 3 ML PEN SC SCH ×2 (08:30→20:08)
--- NOTE | 2021-05-18 08:40 | History & Physical Bridge Note ---
Date of Service May 18, 2021 History & Physical Bridge Note I have examined the patient, reviewed the History & Physical and in the interval since the performance of the History & Physical I have noted the following changes of clinical significance: no changes noted
--- NOTE | 2021-05-18 08:44 | Operative Report ---
PG Post Operative Report Pre & Post Diagnosis Operation Date: 05/03/21 10:30 <No data on this case meets the specified criteria> Operation Date: 05/03/21 12:15 Pre-Op Diagnosis: COVID PNEUMONIA, HYPOXIA Post-Op Diagnosis: COVID PNEUMONIA, HYPOXIA Operation Date: 05/18/21 07:30 Pre-Op Diagnosis: Respiratory Failure Post-Op Diagnosis: Respiratory Failure I identified the patient and participated in the time-out.: Yes Procedure Operation Date: 05/03/21 10:30 <No data on this case meets the specified criteria> Operation Date: 05/03/21 12:15 Actual Procedures p Trach Change and Revision(Not Applicable) - Fannie Stein MD Operation Date: 05/18/21 07:30 Actual Procedures p Tracheostomy Change, With bronchoscopyTo confirm placement(Not Applicable) - Fannie Stein MD Surgeon Fannie Stein MD Meteorology Instructor None Estimated Blood Loss 0 Findings Consistent with Post-Op Diagnosis Specimens None Anesthesia Type General Complications None Description of Procedure He was brought to the operating room in the IBed, properly identified, prepped and draped in the usual manner for trach change. Anesthesia Placed endotracheal tube in position just above the trach. The trach was removed. Tracheostomy site was visualized and a #8 XLT tracheostomy tube was inserted. Confirmation was with bronchoscopy through the tracheostomy tube to visualize the evelyn and proper placement. Bronchoscope was withdrawn. Patient was ventilated with no sign of air leak. He tolerated the procedure well. I attest to the content of the Intraoperative Record and any orders documented therein. Any exceptions are noted below.
--- NOTE | 2021-05-18 08:47 | Anesthesiology Progress Note ---
Date of Service May 18, 2021 Anesthesia Post Procedure Vital Signs Vital Signs: Temp Pulse Pulse Resp BP BP Pulse Ox 05/18/21 06:00 106 H 30 H 92/61 L 96 05/18/21 05:00 101 H 28 H 133/77 95 05/18/21 04:25 110 H 32 H 94 05/18/21 04:00 37.7 C H 110 H 30 H 134/78 94 05/18/21 03:00 37.7 C H 101 H 32 H 136/84 91 05/18/21 02:00 105 H 33 H 146/78 H 88 L 05/18/21 01:00 37.7 C H 88 31 H 141/84 H 89 L 05/18/21 00:00 101 H 29 H 146/88 H 92 05/17/21 23:45 92 H 30 H 94 05/17/21 23:00 101 H 29 H 135/75 95 05/17/21 22:35 37.5 C 05/17/21 22:00 105 H 30 H 107/64 95 05/17/21 21:00 104 H 28 H 113/66 95 05/17/21 20:00 121 H 31 H 129/85 92 05/17/21 19:43 118 H 30 H 91 05/17/21 19:00 117 H 30 H 113/81 93 05/17/21 18:00 127 H 24 123/90 93 05/17/21 17:40 28 H 05/17/21 17:00 116 H 37 H 151/91 H 89 L 05/17/21 16:16 38.2 C H 05/17/21 16:00 114 H 25 H 88 L 05/17/21 15:30 119 H 30 H 91 05/17/21 15:00 122 H 44 H 143/94 H 88 L 05/17/21 14:00 115 H 29 H 153/93 H 90 05/17/21 13:00 111 H 35 H 147/91 H 91 05/17/21 12:25 38 C H 112 H 131/91 93 05/17/21 12:23 38.0 C H 05/17/21 12:00 118 H 38 H 131/91 93 05/17/21 11:30 111 H 32 H 91 05/17/21 11:00 105 H 32 H 139/87 89 L 05/17/21 10:00 107 H 34 H 150/90 H 88 L 05/17/21 09:00 115 H 33 H 144/89 H 93 Transfer of Care Handoff Completed per policy Notes Mental Status: alert / awake / arousable and participated in evaluation Patient Amnestic to Procedure: Yes Nausea / Vomiting: adequately controlled Pain: adequately controlled Airway Patency, RR, SpO2: stable & adequate BP & HR: stable & adequate Hydration State: stable & adequate Anesthetic Complications: no major complications apparent and Pt Satisfied with anesthetic care
--- NOTE | 2021-05-18 09:33 | Critical Care Progress Note ---
Date of Service May 18, 2021 Assessment & Plan (1) Acute respiratory failure with hypoxia: (2) Pneumonia due to 2019 novel coronavirus: (3) Obesity: (4) Anxiety: (5) DVT of axillary vein, acute bilateral: (6) Pneumomediastinum: (7) HTN (hypertension): (8) Hypernatremia: (9) Tracheostomy infection: Plan: Reason Critically Ill: Acute hypoxic respiratory failure secondary to COVID-19 pneumonia PLAN: Neuro: Following commands. Remains weak. PT/OT. CT head 05/08/2021: Chronic microvascular changes but no acute stroke. Sinusitis seen. Resp: --Hypoxic respiratory failure secondary to multilobar COVID-19 pneumonia Patient status post percutaneous tracheostomy placement 05/02/21. ENT performed a trach revision 05/03. Purulent discharge noted around tracheostomy. Trach downsized to a size 6 XLT 05/16 by ENT, but there now is a trach leak. Will be taken to the OR today for revision and placement of a larger trach. Remains on pressure support and unable to tolerate tracheostomy collar trials due to increased work of breathing and hypoxia. CT chest 05/08/21: Diffuse opacities appreciated bilaterally, improved from before. Mild pneumomediastinum also appreciated --Pneumomediastinum --> improving CV: We will restart low-dose metoprolol 12.5 twice daily due to tachycardia Off vasopressors Lower extremity arterial ultrasound of the right leg 05/01 without arterial occlusion or hemodynamically significant stenosis. Keep potassium around 4, magnesium greater than 2, phosphorus around 3 Fluids/Renal: --ZEN Improving. Hypernatremia improving as well. Continue to aggressively replete potassium, magnesium and phosphorus. Electrolyte protocol ordered. ID: Fever curve improving. Culture from around the trach site 05/07/2021: Enterococcus faecium resistant to penicillin, parabacteroides, fiordaliza. Sensitive to vancomycin -> started 05/10/2021. Flagyl started 05/13/21. Will treat for 10 days. C. difficile stool studies negative. Pro-Tomás unremarkable. Repeat urine and blood cultures from 05/14 -. Afebrile for 48 hours. Sputum cultures from 05/02 - thus far. Unasyn changed to Zosyn to 05/08/21 and completed total course of 7 days for sinusitis earlier in the hospitalization GI/Nutrition: GI note from 05/18/21 reviewed indicating that PEG would be difficult in this patient given ventral mesh placement and malrotation. CT abdomen pelvis 05/08/21: Dilated bowel loops likely presenting ileus. No clear obstruction seen. No evidence of hematoma. Heme: Acute DVT s/p tpa earlier in hospital course. Hgb stable --New onset thrombocytopenia --> resolved Endocrine: ICU hyperglycemia protocol --Prophylaxis VTE: Therapeutic Lovenox GI: Lansoprazole Lines: Left arm PICC 05/07/2021, trach revision 05/03 Diet: Tube feeds I have personally spent 32 minutes of critical care time in the direct management of this patient. This is a life/limb threatening event. This includes time spent evaluating patient, direct bedside care, chart review, placing orders, interpretation of diagnostic studies, discussion with consultants, patient, and family members, as well as other required patient management activities. This time is exclusive of all separately billable procedures, and teaching time and separate from and in addition to any other critical care service time. Admission and Anticipated Discharge Date Admission Date: April 16, 2021 Results & Data Results & Data ([facility]) Vital Signs (Past 12 Hours) Vital Signs Temp Pulse Resp BP Pulse Ox 05/18/21 06:00 106 H 30 H 92/61 L 96 05/18/21 05:00 101 H 28 H 133/77 95 05/18/21 04:25 110 H 32 H 94 05/18/21 04:00 37.7 C H 110 H 30 H 134/78 94 05/18/21 03:00 37.7 C H 101 H 32 H 136/84 91 05/18/21 02:00 105 H 33 H 146/78 H 88 L 05/18/21 01:00 37.7 C H 88 31 H 141/84 H 89 L 05/18/21 00:00 101 H 29 H 146/88 H 92 05/17/21 23:45 92 H 30 H 94 05/17/21 23:00 101 H 29 H 135/75 95 05/17/21 22:35 37.5 C 05/17/21 22:00 105 H 30 H 107/64 95 Coding Diagnoses Acute respiratory failure with hypoxia J96.01 Pneumonia due to 2019 novel coronavirus U07.1; J12.82 Obesity E66.9 Anxiety F41.9 DVT of axillary vein, acute bilateral I82.A13 Pneumomediastinum J98.2 HTN (hypertension) I10 Hypernatremia E87.0 Tracheostomy infection J95.02
[2021-05-18] MEDS: ENOXAPARIN INJ 120 MG/0.8 ML SYR SQ SCH ×2 (11:18→22:55)
[2021-05-18] MEDS: PEPTAMEN INTENSE VHP 1.0 CAL 1,000 ML BAG OG SCH (11:18)
--- NOTE | 2021-05-18 11:21 | Critical Care Progress Note ---
Date of Service May 18, 2021 Assessment & Plan (1) Acute respiratory failure with hypoxia: (2) Pneumonia due to 2019 novel coronavirus: (3) Obesity: (4) Anxiety: (5) DVT of axillary vein, acute bilateral: (6) Pneumomediastinum: (7) HTN (hypertension): (8) Hypernatremia: (9) Tracheostomy infection: Plan: Reason Critically Ill: Acute hypoxic respiratory failure secondary to COVID-19 pneumonia PLAN: Neuro: Following commands. Remains weak. PT/OT. CT head 05/08/2021: Chronic microvascular changes but no acute stroke. Sinusitis seen. Resp: --Hypoxic respiratory failure secondary to multilobar COVID-19 pneumonia Patient status post percutaneous tracheostomy placement 05/02/21. Trach exchange in OR 05/18 due to infected trach and leak. Remains on vent support as unable to wean to trach collar trials CT chest 05/08/21: Diffuse opacities appreciated bilaterally, improved from before. Mild pneumomediastinum also appreciated --Pneumomediastinum --> improving CV: Restart low-dose metoprolol 12.5 twice daily due to tachycardia Off vasopressors Lower extremity arterial ultrasound of the right leg 05/01 without arterial occlusion or hemodynamically significant stenosis. Keep potassium around 4, magnesium greater than 2, phosphorus around 3 Fluids/Renal: --ZEN Improving. Hypernatremia improving as well. Continue to aggressively replete potassium, magnesium and phosphorus. Electrolyte protocol ordered. ID: Fever curve improving. Culture from around the trach site 05/07/2021: Enterococcus faecium resistant to penicillin, parabacteroides, fiordaliza. Sensitive to vancomycin -> started 05/10/2021. Flagyl started 05/13/21. Will treat for 10 days. C. difficile stool studies negative. Pro-Tomás unremarkable. Repeat urine and blood cultures from 05/14 -. Afebrile for 48 hours. Sputum cultures from 05/02 - thus far. Unasyn changed to Zosyn to 05/08/21 and completed total course of 7 days for sinusitis earlier in the hospitalization GI/Nutrition: GI note from 05/18/21 reviewed indicating that PEG would be difficult in this patient given ventral mesh placement and malrotation. CT abdomen pelvis 05/08/21: Dilated bowel loops likely presenting ileus. No clear obstruction seen. No evidence of hematoma. Heme: Acute DVT s/p tpa earlier in hospital course. Hgb stable --New onset thrombocytopenia --> resolved Endocrine: ICU hyperglycemia protocol --Prophylaxis VTE: Therapeutic Lovenox GI: Lansoprazole Lines: Left arm PICC 05/07/2021 Diet: Tube feeds Stable for transfer to [facility] I have personally spent 34 minutes of critical care time in the direct management of this patient. This is a life/limb threatening event. This includes time spent evaluating patient, direct bedside care, chart review, placing orders, interpretation of diagnostic studies, discussion with consultants, patient, and family members, as well as other required patient management activities. This time is exclusive of all separately billable procedures, and teaching time and separate from and in addition to any other critical care service time. Admission and Anticipated Discharge Date Admission Date: April 16, 2021 Subjective Underwent trach exchange in the OR. Ventilating well now without leak. No significant issues at present. Review of Systems Review of Systems: All systems reviewed & are unremarkable except as noted in HPI & below Physical Exam Physical Exam: Physical Exam: Vitals signs as noted above General Appearance:Moderately built and nourished, no apparent distress Head: normocephalic, Atraumatic, +Trach Eyes: normal inspection, EOMI Neck: supple, Trachea midline Respiratory/Chest: Normal breath sounds, CTA, No accessory muscle use Cardiovascular: S1, S2, No murmur Abdomen/GI:Soft, Non tender, Bowel sounds present Extremities/Musculoskeletal:normal inspection, 1+ B/L LE edema Neurologic/Psych:grossly no focal neurological deficits Skin: normal color, warm Results & Data Results & Data ([facility]) Vital Signs (Past 12 Hours) Vital Signs Temp Pulse Resp BP Pulse Ox 05/18/21 07:40 111 H 28 H 100 05/18/21 06:00 106 H 30 H 92/61 L 96 05/18/21 05:00 101 H 28 H 133/77 95 05/18/21 04:25 110 H 32 H 94 05/18/21 04:00 37.7 C H 110 H 30 H 134/78 94 05/18/21 03:00 37.7 C H 101 H 32 H 136/84 91 05/18/21 02:00 105 H 33 H 146/78 H 88 L 05/18/21 01:00 37.7 C H 88 31 H 141/84 H 89 L 02/12/22 00:00 101 H 29 H 146/88 H 92 05/17/21 23:45 92 H 30 H 94 Coding Level of Care Code Critical Care 1st 30-74 mins Diagnoses Acute respiratory failure with hypoxia J96.01 Pneumonia due to 2019 novel coronavirus U07.1; J12.82 Obesity E66.9 Anxiety F41.9 DVT of axillary vein, acute bilateral I82.A13 Pneumomediastinum J98.2 HTN (hypertension) I10 Hypernatremia E87.0 Tracheostomy infection J95.02
--- NOTE | 2021-05-18 15:16 | Hospitalist Progress Note ---
Date of Service May 18, 2021 Assessment & Plan (1) Acute respiratory failure with hypoxia: (2) Pneumonia due to 2019 novel coronavirus: Plan: Patient is a 51 yr male with H/O DM type II, HTN, obesity, GERD, HTN, anxiety and FARNAZ on CPAP presented 04/16 for evaluation of shortness of breath. Tested positive for COVID-19 on 04/06. Patient unvaccinated. Acute respiratory failure with hypoxia Pneumonia due to 2018 novel coronavirus Moderate pneumomediastinum: 05/03 CTA chest Unvaccinated state Covid, tested positive on 04/06 Intubated on 04/24 05/01 percutaneous tracheostomy 05/03 tracheostomy leak noted/failed tracheostomy exchange 05/03 Emergent reintubation 05/03 revision tracheostomy in OR --CTA:No pulmonary emboli identified although segmental and subsegmental pulmonary arteries suboptimally assessed due to respiratory motion. Moderate pne umomediastinum. No pneumothorax. Extensive bilateral airspace opacities within the lungs, as described above. Cardiomegaly. Pneumomediastinum and extensive bilateral airspace opacities. Septic shock Currently weaned off pressors Trach secretions cultures grew Enterococcus faecium (resistant to penicillin), parabacteroides distasonis, c. albicans Blood/urine cultures:negative to date Currently on vancomycin and flagyl Appreciate Critical Care Input Continue PT/OT Off pressors On Tube feeds 05/18/20 Tracheostomy change for infected trach and air leak Currently on vent support Plan for Trach collar trial as able Transient Asystole Metoprolol held Monitor No recurrence HTN BP stable Monitor Hypernatremia Free water flushes D5 water as needed Monitor sodium level Sodium level 149 today DM II HbA1C: 9.2 Continue Insulin therapy Monitor BGs Acute Kidney Injury Cr:4.2>2.30>1.67>1.4 Monitor renal function Avoid nephrotoxic agents as able Resume water flushes as able Hypokalemia Hypomagnesemia Hypophosphatemia Replace electrolytes as needed Acute DVT BLE S/P TPA On Lovenox DVT Px: Lovenox SQ Code Status Full Code Disposition Needs LTAC placement-- Likely on Thursday Admission and Anticipated Discharge Date Admission Date: April 16, 2021 Subjective Patient is seen and examined at bedside Patient had Trach exchange today Currently on Vent Updated patient's over the phone Review of Systems Review of Systems: Unobtainable due to endotracheal tube Physical Exam Physical Exam: Physical Exam: Vitals signs as noted above General Appearance:Moderately built and nourished, no apparent distress Head: normocephalic, Atraumatic, +Trach Eyes: normal inspection, EOMI Neck: supple, Trachea midline Respiratory/Chest: Normal breath sounds, CTA, No accessory muscle use Cardiovascular: S1, S2, No murmur Abdomen/GI:Soft, Non tender, Bowel sounds present Extremities/Musculoskeletal:normal inspection, 1+ B/L LE edema, RUE limited ROM, Fingers loss/inability to extend-chronic Neurologic/Psych:grossly no focal neurological deficits Skin: normal color, warm Results & Data Results & Data ([facility]) Vital Signs (Past 12 Hours) Vital Signs Temp Pulse Resp BP Pulse Ox 05/18/21 10:56 99 H 22 95 05/18/21 07:40 111 H 28 H 100 05/18/21 07:00 98 H 25 H 122/75 90 05/18/21 06:45 101 H 21 91 05/18/21 06:00 106 H 30 H 92/61 L 96 05/18/21 05:00 101 H 28 H 133/77 95 05/18/21 04:25 110 H 32 H 94 05/18/21 04:00 37.7 C H 110 H 30 H 134/78 94 Laboratory Results Short CBC 05/18/21 Range/Units 06:03 WBC 13.04 H (4.8-10.8) K/uL Hgb 8.0 L (14.0-18.0) g/dL Hct 26.4 L (42-52) % Plt Count 229 (130-400) K/uL BMP 05/18/21 06:03 Sodium 149 H Potassium 3.4 L Chloride 117 H Carbon Dioxide 26 BUN 51 H Creatinine 1.48 H Glucose 158 H Calcium 7.8 L
[2021-05-19] MEDS: TUBE FEEDING WATER FLUSH NG SCH ×6 (00:22→22:25)
[2021-05-19] MEDS: INSULIN ASPART PER UNIT SC SCH ×6 (00:37→19:54)
[2021-05-19 05:33] LABS: iSTAT Allen Test Pass; iSTAT Art Bld Gas pCO2 Correct 44 mmHg (35-46); iSTAT Art Bld Gas pH Corrected 7.383 (7.35-7.45); iSTAT Arterial Blood Gas HCO3 26 meg/L (19-24); iSTAT Arterial Blood Gas pCO2 43 mmHg (35-46); iSTAT Arterial Blood Gas pH 7.39 (7.35-7.45); iSTAT Arterial Blood Gas pO2 100 mmHg (80-95); iSTAT Arterial Blood Gas pO2 C 103; iSTAT Carbon Dioxide 27 mmol/L (24-31); iSTAT FiO2 40 %; iSTAT Hematocrit 22 % (42-52); iSTAT Hemoglobin 7.5 g/dl (14.0-18.0); iSTAT Potassium 3.1 mmol/L (3.3-5.0); iSTAT Site R Radial; iSTAT Sodium 152 mmol/L (135-144)
[2021-05-19] MEDS: metroNIDAZOLE 500 MG TAB PO SCH ×3 (05:53→22:25)
[2021-05-19 05:57] LABS: Hematocrit (blood only) 25.5 % (42-52); Hemoglobin 7.5 g/dL (14.0-18.0); Mean Corpuscular Hemoglobin 29.4 pg (25-34); Mean Corpuscular Hgb Conc 29.4 g/dL (32-36); Mean Platelet Volume 10.7 fL (7.4-10.4); Platelet Count 237 K/uL (130-400); RDW Coefficient of Variation 17.7 % (11.5-14.5); RDW Standard Deviation 64.2 fL (36.4-46.3); Red Blood Count 2.55 M/uL (4.7-6.1); White Blood Count 10.54 K/uL (4.8-10.8)
[2021-05-19] MEDS: PEPTAMEN INTENSE VHP 1.0 CAL 1,000 ML BAG OG SCH (06:00)
[2021-05-19 06:18] LABS: BUN Creatinine Ratio 34.9 (10-20); Calcium 7.8 mg/dl (8.5-10.1); Creatinine Clr Calc Pharmacy 64.7 ml/min; Est GFR (African American) 52.6 ml/min; Est GFR (Non-African American) 45.4 ml/min; Phosphorus 1.8 mg/dl (2.5-4.9); Potassium 3.3 mmol/L (3.5-5.1)
[2021-05-19] MEDS: ICU ELECTROLYTE REPLACEMENT PROTOCOL SCH ×2 (06:22→18:28)
[2021-05-19] MEDS ORDERED: POTASSIUM PHOS 3 MMOL/1 ML INFUSION IV STA (06:46)
[2021-05-19 06:52] LABS: Basophils # (auto) 0.02 K/uL (0-0.2); Basophils % (auto) 0.2 %; Eosinophils # (auto) 0.17 K/uL (0-0.5); Eosinophils % (auto) 1.6 %; Immature Granulocytes # (auto) 0.12 K/uL (0.00-0.02); Immature Granulocytes % (auto) 1.1 %; Lymphocytes # (auto) 1.03 K/uL (1.2-3.4); Lymphocytes % (auto) 9.8 %; Monocytes # (auto) 0.46 K/uL (0.11-0.59); Monocytes % (auto) 4.4 %; Neutrophils # (auto) 8.74 K/uL (1.4-6.5); Neutrophils % (auto) 82.9 %; Polychromasia 1+
[2021-05-19] MEDS ORDERED: SODIUM BICARB 8.4% INJ 50 MEQ/50 ML SYR IV ONE (07:12)
[2021-05-19] MEDS ORDERED: POTASSIUM PHOSPHATE 30 MMOL in SODIUM CHLORIDE 0.9% 500 ML IV ONE (07:15)
[2021-05-19] MEDS: INSULIN GLARGINE SOLOSTAR 100 UNITS/ML 3 ML PEN SC SCH ×2 (08:03→19:55)
[2021-05-19] MEDS: SACCHAROMYCES BOULARDII 250 MG CAP PO SCH (08:10)
[2021-05-19] MEDS: METOPROLOL TARTRATE 25 MG TAB PO SCH ×2 (08:10→22:25)
[2021-05-19] MEDS: MULTI VIT W/MINERALS LIQUID 15 ML UDP PO SCH (08:11)
[2021-05-19] MEDS: LANSOPRAZOLE 30 MG SOLTAB NG SCH (08:11)
--- NOTE | 2021-05-19 09:20 | Critical Care Progress Note ---
Date of Service May 19, 2021 Assessment & Plan (1) Acute respiratory failure with hypoxia: (2) Pneumonia due to 2019 novel coronavirus: (3) Obesity: (4) Anxiety: (5) DVT of axillary vein, acute bilateral: (6) Pneumomediastinum: (7) HTN (hypertension): (8) Hypernatremia: (9) Tracheostomy infection: Plan: Reason Critically Ill: Acute hypoxic respiratory failure secondary to COVID-19 pneumonia PLAN: Neuro: Following commands. Remains weak. PT/OT. CT head 05/08/2021: Chronic microvascular changes but no acute stroke. Sinusitis seen. Resp: --Hypoxic respiratory failure secondary to multilobar COVID-19 pneumonia. Pneumomediastinum earlier in the hospital course which is resolved. Patient status post percutaneous tracheostomy placement 05/02/21. Trach exchange in OR 05/18 due to infected trach and leak. Remains on vent support as unable to wean to trach collar trials CV: Low-dose metoprolol 12.5 twice daily due to tachycardia Off vasopressors Lower extremity arterial ultrasound of the right leg 05/01 without arterial occlusion or hemodynamically significant stenosis. Keep potassium around 4, magnesium greater than 2, phosphorus around 3 Fluids/Renal: --ZEN Improving. Hypernatremia stable. Continue free water flushes. Continue to aggressively replete potassium, magnesium and phosphorus. Electrolyte protocol ordered. ID: Fever curve improving. Culture from around the trach site 05/07/2021: Enterococcus faecium resistant to p enicillin, parabacteroides, fiordaliza. Sensitive to vancomycin -> started 05/10/2021. Flagyl started 05/13/21. Will treat for 10 days. C. difficile stool studies negative. Pro-Tomás unremarkable. Urine culture from 05/14 with yeast. Will hold on treating as likely colonized. Sputum cultures from 05/02 - thus far. Unasyn changed to Zosyn to 05/08/21 and completed total course of 7 days for sinusitis earlier in the hospitalization GI/Nutrition: GI note from 05/18/21 reviewed indicating that PEG would be difficult in this patient given ventral mesh placement and malrotation. CT abdomen pelvis 05/08/21: Dilated bowel loops likely presenting ileus. No clear obstruction seen. No evidence of hematoma. Heme: Acute DVT s/p tpa earlier in hospital course. Anemia that is trending downwards, likely from lab draws and critical illness. Will continue to monitor. --New onset thrombocytopenia --> resolved Endocrine: ICU hyperglycemia protocol --Prophylaxis VTE: Therapeutic Lovenox GI: Lansoprazole Lines: Left arm PICC 05/07/2021 Diet: Tube feeds [facility] I have personally spent 31 minutes of critical care time in the direct management of this patient. This is a life/limb threatening event. This includes time spent evaluating patient, direct bedside care, chart review, placing orders, interpretation of diagnostic studies, discussion with consultants, patient, and family members, as well as other required patient management activities. This time is exclusive of all separately billable procedures, and teaching time and separate from and in addition to any other critical care service time. Admission and Anticipated Discharge Date Admission Date: April 16, 2021 Subjective Patient remained stable. Some brief periods of hypoxia overnight, but otherwise stable this morning. Remains on CPAP support. Review of Systems Review of Systems: All systems reviewed & are unremarkable except as noted in HPI & below Physical Exam Physical Exam: Physical Exam: Vitals signs as noted above General Appearance:Moderately built and nourished, no apparent distress Head: normocephalic, Atraumatic, +Trach Eyes: normal inspection, EOMI Neck: supple, Trachea midline Respiratory/Chest: Normal breath sounds, CTA, No accessory muscle use Cardiovascular: S1, S2, No murmur Abdomen/GI:Soft, Non tender, Bowel sounds present Extremities/Musculoskeletal:normal inspection, 1+ B/L LE edema Neurologic/Psych:grossly no focal neurological deficits Skin: normal color, warm Results & Data Results & Data ([facility]) Vital Signs (Past 12 Hours) Vital Signs Pulse Resp BP Pulse Ox 05/19/21 07:30 103 H 29 H 93 05/19/21 05:27 101 H 31 H 136/81 99 05/19/21 05:18 28 H 05/19/21 05:02 97 H 34 H 93 05/19/21 05:00 99 H 35 H 154/80 H 97 05/19/21 04:00 100 H 27 H 134/77 97 05/19/21 03:00 93 H 28 H 140/79 96 05/19/21 02:00 96 H 29 H 134/76 100 05/19/21 01:00 97 H 27 H 134/72 92 05/19/21 00:00 99 H 26 H 122/73 94 05/18/21 23:21 99 H 25 H 94 05/18/21 23:00 99 H 26 H 118/71 96 05/18/21 22:00 100 H 27 H 119/67 94 Coding Level of Care Code Critical Care 1st 30-74 mins Diagnoses Acute respiratory failure with hypoxia J96.01 Pneumonia due to 2019 novel coronavirus U07.1; J12.82 Obesity E66.9 Anxiety F41.9 DVT of axillary vein, acute bilateral I82.A13 Pneumomediastinum J98.2 HTN (hypertension) I10 Hypernatremia E87.0 Tracheostomy infection J95.02
--- NOTE | 2021-05-19 09:47 | XRay Report ---
XR chest 1V portable CLINICAL HISTORY: Resp failure TECHNIQUE: Single frontal radiograph of the chest was obtained. Comparison: Comparison is made to chest one view 05/18/2021 FINDINGS: Lines and tubes are stable. The cardiomediastinal silhouette is normal. Multifocal airspace opacities are somewhat improved. No evidence of pleural effusion or pneumothorax. IMPRESSION: Interval improvement in multifocal airspace opacities which may represent atelectasis, pneumonia, and /or aspiration. ACT 112: Negative or not required by law. Electronically signed by: Sanchez Guillen M.D. 05/19/2021 9:45 AM
--- NOTE | 2021-05-19 11:47 | Pharmacy Report ---
Pharmacy Glycemic Short Note 2 - Date of Service May 19, 2021 - Glycemic Short BSG Results (Last 24 hours): 05/18/21 05/18/21 05/19/21 16:11 20:06 00:34 Glucose POC Glucose 150 H 176 H 171 H 05/19/21 05/19/21 05/19/21 04:15 05:06 08:05 Glucose 154 H POC Glucose 140 H 182 H OUTPATIENT ANTIDIABETIC REGIMEN: * Metformin 1000 mg PO BID * Dulaglutide 3 mg SQ weekly on Thu * A1c: 9.2% (04/17/21) ASSESSMENT: 05/19/21 * BSGs yesterday were [phone] mg/dL and fasting today is 182 mg/dL. * Over the past two days patient has received 42 units of insulin daily (20 units of basal and 22 units of bolus). * Continue current regimen as BSGs relatively stable. 05/17 * BSGs today: 170-136-179. Received 15 units of basal yesterday and 29units of prandial insulin. * Peptamen increased to 60mL/hr. Continues on vancomycin/flagyl. * Plan for 10 units BID of Lantus today given BSGs trending into higher 160s- 170s. No change to Novolog for now - may need to tighten tomorrow. 05/16: * BSGs well controlled the last 24h. * Peptamen continues @ goal. D5W discontinued today. * Novolog loosened slightly given dextrose d/c'd and BSGs down-trending below goal last evening. No change to basal insulin today - will leave HS scale tonight given D5 cut. 05/15 * BSGs largely within goal over last 24 hours. * Peptamen VHP continues @ goal. D5W continues @ 70ml/hr. * No changes to prandial insulin today. Plan for 10 units AM Lantus and HS Lantus scale given BSGs have trended down after 15 units of basal yesterday. PLAN FOR INPATIENT GLYCEMIC CONTROL: * Hold outpatient diabetes medications (metformin, Trulicity) * Lantus 10units BID * Bolus insulin * NovoLog Q 4 hrs to cover carbs in tube feeds * Goal range: 120-140 mg/dL * Correction factor: 18 mg/dL/unit * CHO ratio: 6 grams CHO/unit delivered in continuous tube feeds (when running) PLAN FOR DISCHARGE: * Lantus 10 units BID plus Novolog 4 units every 4 hours (hold if blood sugar less than 120 mg/dL) with tube feeds
[2021-05-19] MEDS: ENOXAPARIN INJ 120 MG/0.8 ML SYR SQ SCH ×2 (12:11→22:25)
--- NOTE | 2021-05-19 15:43 | Hospitalist Progress Note ---
Date of Service May 19, 2021 Assessment & Plan (1) Acute respiratory failure with hypoxia: (2) Pneumonia due to 2019 novel coronavirus: Plan: Patient is a 51 yr male with H/O DM type II, HTN, obesity, GERD, HTN, anxiety and FARNAZ on CPAP presented 04/16 for evaluation of shortness of breath. Tested positive for COVID-19 on 04/06. Patient unvaccinated. Acute respiratory failure with hypoxia Pneumonia due to 2019 novel coronavirus Moderate pneumomediastinum: 05/03 CTA chest Unvaccinated state Covid, tested positive on 04/06 Intubated on 04/24 05/01 percutaneous tracheostomy 05/03 tracheostomy leak noted/failed tracheostomy exchange 05/03 Emergent reintubation 05/03 revision tracheostomy in OR 05/18/20 Tracheostomy change for infected trach and air leak --CTA:No pulmonary emboli identified although segmental and subsegmental pulmonary arteries suboptimally assessed due to respiratory motion. Moderate pneumomediastinum. No pneumothorax. Extensive bilateral airspace opacities within the lungs, as described above. Cardiomegaly. Pneumomediastinum and extensive bilateral airspace opacities. Septic shock Pneumomediastinum resolved weaned off pressors Trach secretions cultures grew Enterococcus faecium (resistant to penicillin), parabacteroides distasonis, c. albicans Blood/urine cultures:negative to date Previously was on Unasyn>>>Zosyn Currently on vancomycin and flagyl--Plan for 10 day course Appreciate Critical Care Input Continue PT/OT On Tube feeds Currently on vent support Plan for Trach collar trial as able Needs LTAC placement Transient Asystole Monitor No recurrence HTN BP stable Monitor Hypernatremia Free water flushes D5 water as needed Monitor sodium level Sodium level 151 today DM II HbA1C: 9.2 Continue Insulin therapy Monitor BGs Acute Kidney Injury Cr:4.2>2.3>1.6 Monitor renal function Avoid nephrotoxic agents as able Resume water flushes Hypokalemia Hypomagnesemia Hypophosphatemia Replace electrolytes as needed Acute DVT BLE S/P TPA On Lovenox DVT Px: Lovenox SQ Code Status Full Code Disposition Needs LTAC placement-- Likely tomorrow Admission and Anticipated Discharge Date Admission Date: April 16, 2021 Subjective Patient is seen and examined at bedside On CPAP overnight On pressure support this morning Afebrile today Unable to do trach collar trials Review of Systems Review of Systems: All systems reviewed & are unremarkable except as noted in Subjective Physical Exam Physical Exam: Physical Exam: Vitals signs as noted above General Appearance:Moderately built and nourished, no apparent distress Head: normocephalic, Atraumatic, +Trach Eyes: normal inspection, EOMI Neck: supple, Trachea midline Respiratory/Chest: Normal breath sounds, CTA, No accessory muscle use Cardiovascular: S1, S2, No murmur Abdomen/GI:Soft, Non tender, Bowel sounds present Extremities/Musculoskeletal:normal inspection, 1+ B/L LE edema, RUE limited ROM, Fingers loss/inability to extend-chronic Neurologic/Psych:grossly no focal neurological deficits Skin: normal color, warm Results & Data Results & Data ([facility]) Vital Signs (Past 12 Hours) Vital Signs Pulse Resp BP Pulse Ox 05/19/21 14:05 97 H 24 97 05/19/21 11:41 97 H 29 H 95 05/19/21 08:00 107 H 05/19/21 07:30 103 H 29 H 93 05/19/21 05:27 101 H 31 H 136/81 99 05/19/21 05:18 28 H 05/19/21 05:02 97 H 34 H 93 05/19/21 05:00 99 H 35 H 154/80 H 97 05/19/21 04:00 100 H 27 H 134/77 97 Laboratory Results Short CBC 05/19/21 Range/Units 05:06 WBC 10.54 (4.8-10.8) K/uL Hgb 7.5 L (14.0-18.0) g/dL Hct 25.5 L (42-52) % Plt Count 237 (130-400) K/uL BMP 05/19/21 05:06 Sodium 151 H Potassium 3.3 L Chloride 118 H Carbon Dioxide 26 BUN 59 H Creatinine 1.69 H Glucose 154 H Calcium 7.8 L
[2021-05-19] MEDS: VANCOMYCIN HCL 1,500 MG in SODIUM CHLORIDE 0.9% 500 ML IV SCH (16:27)
[2021-05-20] MEDS: PEPTAMEN INTENSE VHP 1.0 CAL 1,000 ML BAG OG SCH (00:39)
[2021-05-20] MEDS: INSULIN ASPART PER UNIT SC SCH ×3 (00:44→07:58)
[2021-05-20] MEDS: TUBE FEEDING WATER FLUSH NG SCH ×3 (01:28→08:56)
[2021-05-20] MEDS: metroNIDAZOLE 500 MG TAB PO SCH (05:07)
[2021-05-20 06:01] LABS: Hematocrit (blood only) 24.8 % (42-52); Hemoglobin 7.5 g/dL (14.0-18.0); Mean Corpuscular Hgb Conc 30.2 g/dL (32-36); Mean Corpuscular Volume 99.2 fL (80-100); Mean Platelet Volume 10.2 fL (7.4-10.4); Platelet Count 217 K/uL (130-400); RDW Coefficient of Variation 17.5 % (11.5-14.5); RDW Standard Deviation 62.5 fL (36.4-46.3); White Blood Count 9.15 K/uL (4.8-10.8)
[2021-05-20 06:15] LABS: BUN Creatinine Ratio 40.5 (10-20); Calcium 7.8 mg/dl (8.5-10.1); Creatinine Clr Calc Pharmacy 69.3 ml/min; Est GFR (Non-African American) 49.2 ml/min; Magnesium 1.9 mg/dl (1.7-2.4); Phosphorus 2.3 mg/dl (2.5-4.9); Potassium 3.2 mmol/L (3.5-5.1)
[2021-05-20] MEDS: ICU ELECTROLYTE REPLACEMENT PROTOCOL SCH (06:21)
[2021-05-20] MEDS ORDERED: MAGNESIUM SULFATE / D5W 1 GM/100 ML BAG IV SCH (06:30)
[2021-05-20] MEDS ORDERED: POTASSIUM CHLORIDE 20 MEQ/15 ML UDC PO STA (06:31)
[2021-05-20] MEDS: MAGNESIUM SULFATE / D5W 1 GM/100 ML BAG IV SCH ×2 (06:45→08:43)
[2021-05-20] MEDS ORDERED: POTASSIUM CHLORIDE / WTR 20 MEQ/100 ML PLCT IV ONE (06:45)
[2021-05-20] MEDS ORDERED: MAGNESIUM SULFATE / D5W 1 GM/100 ML BAG IV ONE (06:45)
--- NOTE | 2021-05-20 07:31 | XRay Report ---
XR chest 1V portable CLINICAL HISTORY: Resp failure. Follow-up alveolar opacities COMPARISON STUDY: 05/19/2021 TECHNIQUE: 1 view of the chest FINDINGS: Single frontal view of the chest demonstrates the cardiomediastinal silhouette to be within normal li mits. Tubes and catheters are unchanged. Compared to previous examination, there is no significant in terval change in lateral airspace opacities. No new confluent alveolar opacities are seen. There is e vidence for decreased left pleural effusion which is probably related to a more upright position. The re is no evidence for right pleural effusion. There is no evidence for vascular congestion. There is no acute osseous pathology. IMPRESSION: 1. No significant interval change in bilateral interstitial and alveolar opacities. Patient appears i n a more upright position with decrease in left pleural effusion. ACT 112: Negative or not required by law. Electronically signed by: Valdo Marina M.D. 05/20/2021 7:30 AM
[2021-05-20] MEDS ORDERED: INSULIN GLARGINE SOLOSTAR 100 UNITS/ML 3 ML PEN SC SCH (08:00)
[2021-05-20] MEDS: INSULIN GLARGINE SOLOSTAR 100 UNITS/ML 3 ML PEN SC SCH (08:00)
[2021-05-20] MEDS: MULTI VIT W/MINERALS LIQUID 15 ML UDP PO SCH (08:44)
[2021-05-20] MEDS: LANSOPRAZOLE 30 MG SOLTAB NG SCH (08:45)
[2021-05-20] MEDS: METOPROLOL TARTRATE 25 MG TAB PO SCH (08:45)
[2021-05-20] MEDS: ENOXAPARIN INJ 120 MG/0.8 ML SYR SQ SCH (08:56)
--- NOTE | 2021-05-22 16:52 | Discharge Summary ---
Date of Service May 22, 2021 Admission HPI Per Admitting Provider 51-year-old male with PMH DM type II, HTN, obesity, GERD, and other problems to below who presents to the ED for evaluation of shortness of breath. Patient reports testing positive for COVID-19 via home test on 04/06. His symptoms also started on the day. Reports that his and daughter are also positive. Patient is unvaccinated. Patient was seen by PCP on 04/14 and started on prednisone taper and albuterol inhaler. Patient reports no improvement in his symptoms. He has worsening shortness of breath to the point where he is short of breath at rest. He has had a cough productive of white sputum. Developed a fever yesterday, however is unsure of how high. He has had episodes of diaphoresis. No chest pain or palpitations. Denies lightheadedness, dizziness, diaphoresis, syncopal events. Reports appetite has been fair however denies abdominal pain, nausea, vomiting, diarrhea. No urinary symptoms. In the ED, patient is requiring 15 L oxygen mask to maintain saturations. Labs are mostly unremarkable. CXR is consistent with COVID-19 pneumonia. Patient was given p.o. Tylenol and IV dexamethasone. Principal Diagnosis Acute hypoxic respiratory failure Severe Covid 19 pneumonia Pneumomediastinum, resolved Tracehostomy infection Hypernatremia Hypokalemia Hypophosphatemia ZEN Bilateral DVT Discharge Exam Appears in no distress Neck Vented via Trach Respiratory Breathing comfortably No wheezing/rhonchi Cardiovascular regular rate and rhythm Gastrointestinal (Abdomen) +BS, +ventral hernia Musculoskeletal no edema Skin known sacral ulcer Neurologic drowsy but arousable Genitourinary pickett catheter in place Rectal tube in place Discharge Data Allergies Allergy/AdvReac Type Severity Reaction Status Date / Time methylparaben Allergy Mild ITCHING Verified 05/12/21 13:35 oxymorphone Allergy Mild ITCHING Verified 05/12/21 13:35 Consultations 04/16/21 13:32 ED Decision to Admit Stat 04/23/21 10:02 Consult Infectious Diseases Routine 04/24/21 15:58 Consult Pulmonology Routine 04/24/21 21:21 Consult Telephone Answering Service Operator Routine 04/30/21 13:50 Consult General Surgery Routine 05/07/21 11:16 Consult Gastroenterology Routine Procedures Performed Operation Date: 05/03/21 10:30 <No data on this case meets the specified criteria> Operation Date: 05/03/21 12:15 Actual Procedures p Trach Change and Revision(Not Applicable) - Fannie Stein MD Operation Date: 05/18/21 07:30 Actual Procedures p Tracheostomy Change(Not Applicable) - Fannie Stein MD Ordered Studies 04/25/21 10:06 US venous doppler LE BI Routine 04/30/21 21:06 CT abd pelvis wo con Urgent 05/01/21 07:10 US arterial duplex LE RT Urgent 05/03/21 12:00 CT head/brain wo con Urgent 05/03/21 12:02 CT angio chest PE protocol Urgent 05/08/21 12:03 CT abd pelvis wo con Routine CT chest diagnostic wo con Routine CT head/brain wo con Routine Diabetes Follow up Diabetes Follow-up Needed for HgbA1c >9% Hospital Course (1) Acute respiratory failure with hypoxia: (2) Pneumonia due to 2019 novel coronavirus: Patient is a 51 yr male with H/O DM type II, HTN, obesity, GERD, HTN, anxiety and FARNAZ on CPAP presented 04/16 for evaluation of shortness of breath. Tested positive for COVID-19 on 04/06. Patient unvaccinated. Acute respiratory failure with hypoxia Pneumonia due to 2019 novel coronavirus Moderate pneumomediastinum: 05/03 CTA chest Unvaccinated state Septic shock Covid, tested positive on 04/06 Intubated on 04/24 05/01 percutaneous tracheostomy 05/03 tracheostomy leak noted/failed tracheostomy exchange 05/03 Emergent reintubation 05/03 revision tracheostomy in OR 05/18/20 Tracheostomy change for infected trach and air leak --CTA:No pulmonary emboli identified although segmental and subsegmental pulmonary arteries suboptimally assessed due to respiratory motion. Moderate pneumomediastinum. No pneumothorax. Extensive bilateral airspace opacities within the lungs, as described above. Cardiomegaly. Pneumomediastinum and extensive bilateral airspace opacities. Septic shock--required pressor support which was subsequently weaned off Pneumomediastinum resolved Trach secretions cultures grew Enterococcus faecium (resistant to penicillin), parabacteroides distasonis, c. albicans Blood/urine cultures:negative to date Previously was on Unasyn which was broadened to Zosyn Currently on vancomycin and flagyl--Plan for 10 day course. Finished Vancomycin while here, discharged on an additional 3 days of Flagyl Currently on vent support Plan for Trach collar trial as able Discharged to LTAC Hypernatremia Discharged on: 250 cc free water flushes Q 4 hours Repeat BMP in 1-2 days to monitor Stable at time of discharge Acute Kidney Injury Cr:4.2>2.3>1.6 Improved at time of discharge Hypokalemia Hypomagnesemia Hypophosphatemia lytes repleted here Acute bilateral lower extremity DVT S/P TPA Discharged on therapeutic lovenox, plan for 3 month course Total Time Total Time Spent Total Time Spent (In Minutes): 45 Discharge Plan Discharge Items Patient Disposition: Transfer to LTAC Reason For Visit: COVID PNEUMONIA, HYPOXIA Discharge Diagnosis: Acute hypoxic respiratory failure Severe Covid 19 pneumonia Pneumomediastinum, resolved Tracehostomy infection Hypernatremia Hypokalemia Hypophosphatemia ZEN Bilateral DVT Condition on Discharge: Fair Activity: As commented below Lifting: None Bathing: No limitations Exercise/Sports: Gradually increase as tolerated Weightbearing: Full weightbearing Non-emergency contact: Primary Care Provider Call non-emergency contact if: you have any medication questions, your symptoms worsen and your rectal temperature is above 100.4 Follow-up/Referrals: Josias Ng MD [Primary Care Provider] - Diet: Nothing by Mouth Diet Comment: Peptamen Tube Feed at 60 cc/hr. Free water flush 250 cc Q 4 hours Addtl Attending Provider Instructions: Vent settings: PEEP 5, FIO2- 40%, PS-7 Maintain rectal tube to help sacral ulcer heal Maintain pickett catheter. Change every 2 weeks Maintain NG tube. Patient unable to get PEG due to ventral hernia repair with mesh Peptamen Tube Feed- Continuous at 60 cc/hr Free Water Flushes 250 cc every 4 hours Repeat BMP, Mg, Phos in 3 days Pending Studies at Discharge: No Stand-Alone Forms: My [facility] Skilled Items Patient informed of condition?: No DNR: No Discharge Level of Care: Other Communicable Disease: No Discharge Prognosis: Stable Lines: PICC Urinary Catheter: Yes Medications and DC Order Prescriptions: New polyethylene glycol 3350 [Miralax] 17 gram Powder In Packet 17 g PO BID PRN (Reason: constipation) 7 Days Qty: 14 RF: 0 sennosides-docusate sodium [Senokot-S] 8.6-50 mg Tablet 1 tab PO BID PRN (Reason: constipation) 7 Days Qty: 7 RF: 0 metronidazole 500 mg Tablet 500 mg PO Q8 3 Days Qty: 9 RF: 0 insulin aspart U-100 [Novolog U-100 Insulin aspart] 100 unit/mL Solution 3 unit SC Q4 30 Days Qty: 10 RF: 0 enoxaparin [Lovenox] 120 mg/0.8 mL Syringe 111 mg subcut Q12H 90 Days Qty: 133.2 RF: 0 lansoprazole [Prevacid SoluTab] 30 mg Tablet,Disintegrat, Delay Rel 30 mg NG DAILY 30 Days Qty: 30 RF: 0 Saccharomyces boulardii [Florastor] 250 mg Capsule 250 mg PO DAILY 14 Days Qty: 14 RF: 0 metoprolol tartrate 25 mg Tablet 12.5 mg PO BID 30 Days Qty: 30 RF: 0 Lantus Solostar U-100 Insulin 100 unit/mL (3 mL) Insulin Pen 10 unit SC 0800,2000 30 Days Qty: 6 RF: 0 acetaminophen 325 mg/10.15 mL Suspension 650 mg OG Q4H PRN (Reason: fever or pain) 7 Days Qty: 304.5 RF: 0 Peptamen Intense VHP 0.09 gram- 1 kcal/mL Liquid See Rx Instructions .ROUTE .COMPLEX 30 Days Qty: 1000 RF: 0 Centrum 9 mg iron/15 mL Liquid 15 ml PO QAM 30 Days Qty: 450 RF: 0 Tube Feeding Water Flush 250 ml NG Q4H 7 Days RF: 0 Discontinued metformin 1,000 mg Tablet 1,000 mg PO BIDWMEAL Qty: 0 RF: 0 acetaminophen 650 mg Tablet 650 mg PO Q4H PRN (Reason: Pain) Qty: 0 RF: 0 prednisone 10 mg tablet 10 mg PO UD RF: 0 hydrochlorothiazide 25 mg tablet 25 mg PO DAILY RF: 0 testosterone cypionate 200 mg/mL oil 200 mg IM UD RF: 0 albuterol sulfate 90 mcg/actuation HFA aerosol inhaler 2 puff INHALATION Q4H PRN (Reason: Shortness Of Breath) RF: 0 Trulicity 3 mg/0.5 mL pen injector 3 mg SUBCUT WK RF: 0 omeprazole 20 mg capsule,delayed release(DR/EC) 20 mg PO DAILY RF: 0 Discharge Orders: Discharge Order (Routine); Ordered 05/20/21 Ordered By: Andre Anglin Admission Data Admit Date/Time: 04/16/21 13:32 Attending Provider: Andre Anglin Admit Provider: Moe Moreno Primary Care Provider: Josias Ng Other Providers: Sherin Meier ; Lauri Diaz ; Fannie Stein ; Kori Renee ; Mike Abrams ; Josselin Loza Other Interventions: Discharge Summary Assessment (RN) Last Done: 05/20/21 09:16
== END 2021-05-20 09:45 | DRG 3 ==
LOC: ED 11:23 → 2S 13:32 → SUATTDRO 13:32 → 2S 15:45 → 2E 04-17 19:29 → 1E 04-24 19:07
PROC: M.TRACH (2021-05-03 12:15)
DX: G47.33 Obstructive sleep apnea (adult) (pediatric); J98.2 Interstitial emphysema; Z91.02 Food additives allergy status; B96.89 Other specified bacterial agents as the cause of diseases classified elsewhere; B95.2 Enterococcus as the cause of diseases classified elsewhere; E87.1 Hypo-osmolality and hyponatremia; E87.3 Alkalosis; Z68.35 Body mass index [BMI] 35.0-35.9, adult; G93.40 Encephalopathy, unspecified; E87.6 Hypokalemia; J32.9 Chronic sinusitis, unspecified; E87.0 Hyperosmolality and hypernatremia; Y92.239 Unspecified place in hospital as the place of occurrence of the external cause; I95.9 Hypotension, unspecified; B37.89 Other sites of candidiasis; E66.01 Morbid (severe) obesity due to excess calories; Z16.11 Resistance to penicillins; E83.39 Other disorders of phosphorus metabolism; U07.1 COVID-19; J15.9 Unspecified bacterial pneumonia; I10 Essential (primary) hypertension; K59.00 Constipation, unspecified; K21.9 Gastro-esophageal reflux disease without esophagitis; J04.10 Acute tracheitis without obstruction; Y83.3 Surgical operation with formation of external stoma as the cause of abnormal reaction of the patient, or of later complication, without mention of misadventure at the time of the procedure; Z82.49 Family history of ischemic heart disease and other diseases of the circulatory system; A41.9 Sepsis, unspecified organism; Z79.84 Long term (current) use of oral hypoglycemic drugs; J95.03 Malfunction of tracheostomy stoma; I47.1 Supraventricular tachycardia; N17.9 Acute kidney failure, unspecified; J12.82 Pneumonia due to coronavirus disease 2019; I82.A13 Acute embolism and thrombosis of axillary vein, bilateral; F41.9 Anxiety disorder, unspecified; R65.21 Severe sepsis with septic shock; Z79.899 Other long term (current) drug therapy; E11.65 Type 2 diabetes mellitus with hyperglycemia; Z83.3 Family history of diabetes mellitus; Z79.52 Long term (current) use of systemic steroids; Z88.5 Allergy status to narcotic agent; E87.5 Hyperkalemia; R79.82 Elevated C-reactive protein (CRP); J95.02 Infection of tracheostomy stoma; J80 Acute respiratory distress syndrome